=== PATIENT | female | born 2000 | race Caucasian/White ===

== ENCOUNTER 2021-04-26 17:38 | Inpatient (IN) ==
[2021-04-26] MEDS ORDERED: SODIUM CHLORIDE 0.9% 1000ML 1,000 ML IV SCH (19:30)
[2021-04-26 19:53] LABS: Basophils # (auto) 0.02 K/uL (0-0.2); Basophils % (auto) 0.2 %; Eosinophils % (auto) 1.1 %; Hematocrit (blood only) 42.3 % (37-47); Hemoglobin 14.8 g/dL (12.0-16.0); Immature Granulocytes # (auto) 0.02 K/uL (0.00-0.02); Immature Granulocytes % (auto) 0.2 %; Lymphocytes # (auto) 3.53 K/uL (1.2-3.4); Lymphocytes % (auto) 37.6 %; Mean Corpuscular Hemoglobin 28.8 pg (25-34); Mean Corpuscular Volume 82.3 fL (80-100); Mean Platelet Volume 13.2 fL (7.4-10.4); Monocytes # (auto) 0.55 K/uL (0.11-0.59); Monocytes % (auto) 5.9 %; Neutrophils # (auto) 5.16 K/uL (1.4-6.5); Platelet Count 187 K/uL (130-400); RDW Coefficient of Variation 12.8 % (11.5-14.5); RDW Standard Deviation 38.7 fL (36.4-46.3); Red Blood Count 5.14 M/uL (4.2-5.4); White Blood Count 9.38 K/uL (4.8-10.8)
[2021-04-26 20:27] LABS: Alanine Aminotransferase 39 U/L (12-78); Albumin Level 3.4 gm/dl (3.4-5.0); Blood Urea Nitrogen 9 mg/dl (7-18); C Reactive Protein 0.67 mg/dl (0-0.29); Calcium 9.3 mg/dl (8.5-10.1); Carbon Dioxide 24 mmol/L (21-32); Chloride 108 mmol/L (98-107); Creatinine Clr Calc Pharmacy 169.7 ml/min; Est GFR (African American) > 150.0 ml/min; Est GFR (Non-African American) 130.8 ml/min; Glucose 106 mg/dl (70-99); Lipase 137 U/L (73-393); Sodium 139 mmol/L (136-145)
[2021-04-26 20:35] LABS: Albumin Globulin Ratio 0.8 (0.9-2); Alkaline Phosphatase 74 U/L (45-117); Bilirubin,Total 0.4 mg/dl (0.2-1); Globulin 4.2 gm/dl (2.5-4.0); Thyroid Stimulating Hormone 0.871 uIu/ml (0.300-4.500); Total Protein 7.6 gm/dl (6.4-8.2); Troponin I < 0.015 ng/ml (0-0.045)
--- NOTE | 2021-04-26 20:42 | XRay Report ---
KUB CLINICAL HISTORY: Left flank pain. COMPARISON STUDY: CT of the abdomen pelvis May 08, 2020. FINDINGS: The bowel gas pattern is normal. Amount of stool is within normal limits. No urinary calcul i are identified. IMPRESSION: Unremarkable KUB. ACT 112: Negative or not required by law. Electronically signed by: Travis Hogan M.D. 04/26/2021 8:41 PM
[2021-04-26 21:13] LABS: Potassium 2.5 mmol/L (3.5-5.1)
[2021-04-26] MEDS ORDERED: POTASSIUM ACETATE/NSS 10 MEQ/105 ML BAG IV ONE (21:14)
[2021-04-26] MEDS ORDERED: POTASSIUM CHLORIDE CRTAB 20 MEQ TABCR PO STA (21:14)
[2021-04-26 21:16] LABS: D Dimer 480 ug/L FEU (0-500); Partial Thromboplastin Ratio 0.9; Partial Thromboplastin Time 23.9 Seconds (21.0-31.0); Prothrombin Time 10.1 Seconds (9.0-12.0)
[2021-04-26 21:22] LABS: Magnesium 1.6 mg/dl (1.8-2.4)
[2021-04-26] MEDS ORDERED: DEXTROSE 50% 50 ML SYRINGE IV STA (21:31)
[2021-04-26 22:05] LABS: Lyme Ab IgG w/WB Rflx Negative (Negative); Lyme Ab IgM w/WB Rflx Negative (Negative); Monotest Negative (Negative)
[2021-04-26 22:19] LABS: Pregnancy Test, Urine Negative (Negative)
[2021-04-26 22:48] LABS: Appearance Urine Cloudy (Clear); Bacteria Urine Automated 3+ (Negative); Bilirubin Urine Negative (Negative); Blood Urine 3+ (Negative); Color Urine Yellow; Glucose Urine UA 3+ (Negative); Ketones Urine Trace (Negative); Leukocyte Esterase Urine 1+ (Negative); Nitrite Urine Negative (Negative); Protein Urine 1+ (Negative); Urobilinogen Urine Negative (Negative); WBC Urine Automated >30 /hpf (0-5)
[2021-04-26 23:02] LABS: Amphetamines+Metham, Urine Neg (Neg); Barbiturates, Urine Neg (Neg); Benzodiazepine, Urine Neg (Neg); Cocaine, Urine Neg (Neg); MDMA (Ecstacy), Urine Neg (Neg); Methadone, Urine Neg (Neg); Opiate, Urine Neg (Neg); Phencyclidine, Urine Neg (Neg)
[2021-04-26 23:14] LABS: Cast Urine Automated 0 /lpf (0-5)
[2021-04-26] MEDS ORDERED: cefTRIAXone SODIUM 2,000 MG/70 ML BAG IV STA (23:21)
--- NOTE | 2021-04-26 23:52 | Emergency Department Note ---
History of Present Illness General Chief complaint: Flank Pain Stated complaint: JAUNDICE, PAIN UNDER RIBS Time Seen by Provider: 04/26/21 19:01 History of Present Illness Maximum Pain Intensity: 4 This is a 21-year-old female presenting to the emergency department for evaluation of left upper quadrant abdominal pain, pain with urination, and discoloration of her skin. She states that she has had the pain for the past 1 to 2 days. 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 She did have Covid 19 several months ago, but has not tested positive since. She does have a history of diabetes and uses lispro 8 units twice daily. She did use her insulin first thing this morning and had a small amount of food to eat around 11 AM. The patient went to work and began feeling worse and worse, and now states that the discoloration of her skin has i ncreased. She has had at least 2 tick bites recently. No fevers or chills. No chest pain, chest tightness, shortness of breath, or lower abdominal discomfort. She does not describe distinct flank pain, and does not have a history of abdominal surgery. The patient reports having loose stools for several months, which initially was felt to be related to Metformin. The patient does not report any recent travel history and rates her current discomfort a 4/10. She does not identify any aggravating or alleviating factors. Home Medications Medication Instructions Recorded Confirmed Type insulin lispro 100 unit/mL 8 unit SUBCUT BID 07/13/19 04/26/21 History subcutaneous pen (Humalog KwikPen (U-100) Insulin) levonorgestrel-ethinyl estradiol 1 tab PO QAM 07/13/19 04/26/21 History 0.1 mg-20 mcg tablet (Lutera (28)) fluticasone propionate 50 2 spray INTRANASAL DAILY 04/26/21 04/26/21 History mcg/actuation nasal spray,suspension metoclopramide HCl 10 mg tablet 10 mg PO QAM 04/26/21 04/26/21 History omeprazole 40 mg capsule,delayed 40 mg PO QAM 04/26/21 04/26/21 History release Allergies Allergy/AdvReac Type Severity Reaction Status Date / Time Lady Bugs Allergy Intermediate Swelling Uncoded 04/26/21 21:39 and hives Past Med/Surg History Medical History (Updated 04/27/21 @ 13:21 by Gela Carranza PA-C) Boils Diabetes Frequent loose stools Surgical History No significant past surgical history Social History Smoking Status: Never smoker Hx Alcohol Use: No Hx Substance Use: Yes (pt tested positive in ED but states "no") Preferred Language: Italian Communication Ability: Effective 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 Beliefs That Will Affect Care: None Current Living Situation: Parent Other Information That Helps Us Care for You: No Feels Safe at Home: Yes Safety Concerns: Feels Safe At This Time Assistive Devices: Glasses Review of Systems A total of 10 systems reviewed and were otherwise negative Physical Exam Vital Signs Vital Signs - 24 hr 04/26/21 18:13 04/26/21 20:00 04/26/21 21:17 Temperature Source Temporal Artery Scan Pulse Rate 78 100 H Pulse Rate [Finger] 96 H Pulse Rate from SpO2 Sensor Pulse Rhythm [Finger] Regular Respiratory Rate 18 18 20 Respiratory Effort / Characteristics Non-Labored Spontaneous Non-Labored Spontaneous Respiratory Depth Normal Normal Respiratory Pattern Regular Regular Blood Pressure 105/59 L 154/79 H Blood Pressure [Right Arm] 124/71 Blood Pressure Mean 74 104 Blood Pressure Mean [Right Arm] 88 Blood Pressure Position Sitting Blood Pressure Position [Right Arm] Lying Pulse Oximetry 97 98 97 Oxygen Delivery Method Room Air Room Air Sepsis Recent Fever Within 48 Hours No Sepsis New/Unexplained Change in Mental Status N/A Sepsis Action Taken by Nursing No Action Required 04/26/21 21:30 04/26/21 22:04 04/26/21 22:30 Temperature Source Pulse Rate 94 H 98 H 87 Pulse Rate [Finger] Pulse Rate from SpO2 Sensor 87 Pulse Rhythm [Finger] Respiratory Rate 20 20 Respiratory Effort / Characteristics Respiratory Depth Respiratory Pattern Blood Pressure 148/77 H 130/77 118/69 Blood Pressure [Right Arm] Blood Pressure Mean 100 94 85 Blood Pressure Mean [Right Arm] Blood Pressure Position Blood Pressure Position [Right Arm] Pulse Oximetry 97 97 99 Oxygen Delivery Method Sepsis Recent Fever Within 48 Hours Sepsis New/Unexplained Change in Mental Status Sepsis Action Taken by Nursing 04/26/21 23:00 04/26/21 23:30 04/27/21 00:00 Temperature Source Pulse Rate 75 79 71 Pulse Rate [Finger] Pulse Rate from SpO2 Sensor 76 81 71 Pulse Rhythm [Finger] Respiratory Rate 18 18 15 Respiratory Effort / Characteristics Respiratory Depth Respiratory Pattern Blood Pressure 122/68 118/70 90/47 L Blood Pressure [Right Arm] Blood Pressure Mean 86 86 61 Blood Pressure Mean [Right Arm] Blood Pressure Position Blood Pressure Position [Right Arm] Pulse Oximetry 99 98 97 Oxygen Delivery Method Sepsis Recent Fever Within 48 Hours Sepsis New/Unexplained Change in Mental Status Sepsis Action Taken by Nursing 04/27/21 00:30 04/27/21 01:00 04/27/21 01:30 Temperature Source Pulse Rate 75 72 74 Pulse Rate [Finger] Pulse Rate from SpO2 Sensor 75 71 74 Pulse Rhythm [Finger] Respiratory Rate 16 18 18 Respiratory Effort / Characteristics Respiratory Depth Respiratory Pattern Blood Pressure 112/62 119/80 105/71 Blood Pressure [Right Arm] Blood Pressure Mean 78 93 82 Blood Pressure Mean [Right Arm] Blood Pressure Position Blood Pressure Position [Right Arm] Pulse Oximetry 98 99 95 Oxygen Delivery Method Sepsis Recent Fever Within 48 Hours Sepsis New/Unexplained Change in Mental Status Sepsis Action Taken by Nursing 04/27/21 02:00 04/27/21 02:30 04/27/21 03:12 Temperature Source Pulse Rate 73 73 70 Pulse Rate [Finger] Pulse Rate from SpO2 Sensor Pulse Rhythm [Finger] Respiratory Rate 21 16 14 Respiratory Effort / Characteristics Respiratory Depth Respiratory Pattern Blood Pressure 95/64 L 109/64 Blood Pressure [Right Arm] Blood Pressure Mean 74 79 Blood Pressure Mean [Right Arm] Blood Pressure Position Blood Pressure Position [Right Arm] Pulse Oximetry Oxygen Delivery Method Sepsis Recent Fever Within 48 Hours Sepsis New/Unexplained Change in Mental Status Sepsis Action Taken by Nursing 04/27/21 03:30 04/27/21 04:00 Temperature Source Pulse Rate 73 73 Pulse Rate [Finger] Pulse Rate from SpO2 Sensor Pulse Rhythm [Finger] Respiratory Rate 15 15 Respiratory Effort / Characteristics Respiratory Depth Respiratory Pattern Blood Pressure Blood Pressure [Right Arm] Blood Pressure Mean Blood Pressure Mean [Right Arm] Blood Pressure Position Blood Pressure Position [Right Arm] Pulse Oximetry Oxygen Delivery Method Sepsis Recent Fever Within 48 Hours Sepsis New/Unexplained Change in Mental Status Sepsis Action Taken by Nursing VITALS: Vitals are noted on the nurse's note and reviewed by myself. Vital signs stable. GENERAL: Well-developed, well-nourished, white female, who is in no acute distress and resting comfortably. Patient is cooperative with the examination. HEAD: Normocephalic atraumatic. NECK: Supple without nuchal rigidity. No lymphadenopathy. No thyromegaly. Cervical spine is nontender. HEART: Regular rate and rhythm without murmurs gallops or rubs. LUNGS: Clear to auscultation bilaterally without wheezes, rales or rhonchi. No retractions or accessory muscle use. ABDOMEN: Positive normal bowel sounds x 4. Soft with mild left upper quadrant tenderness. No rebound or guarding. No significant epigastric or right upper quadrant tenderness. No CVA tenderness. MUSCULOSKELETAL: No muscle atrophy, erythema, or edema noted. Full range of motion in all extremities. NEURO: Patient was alert and oriented to person place and time. CN II through XII grossly intact. SKIN: Scattered patchy yellowish discoloration noted primarily on the left leg and left arm. Course Administered Medications Enoxaparin Sodium (Enoxaparin Inj 40 Mg/0.4 Ml Syr) 40 mg SQ Q24H MARIELLA Stop: 05/27/21 08:59 Last Admin: 04/27/21 08:37 Dose: 40 mg Documented by: [id number] Fluticasone Propionate (Fluticasone Propionate Na Spr 16 Gm Btl) 2 sprays NA DAILY MARIELLA Stop: 05/27/21 08:59 Last Admin: 04/27/21 08:37 Dose: 2 sprays Documented by: [id number] Potassium Chloride/Sodium Chloride (Normal Saline W/20 Meq Kcl) 20 meq in 1,000 mls @ 100 mls/hr IV .Q10H MARIELLA Stop: 05/27/21 08:59 Last Admin: 04/27/21 09:56 Dose: 100 mls/hr Documented by: [id number] Insulin Human Regular (Insulin Human Regular) 0 units SC ACHS MARIELLA; Protocol Stop: 05/27/21 07:29 Last Admin: 04/27/21 13:00 Dose: 7 units Documented by: [id number] Cosigned by: [id number] Admin: 04/27/21 08:45 Dose: 5 units Documented by: [id number] Cosigned by: [id number] Metoclopramide HCl (Metoclopramide Hcl 10 Mg Tablet) 10 mg PO QAM MARIELLA Stop: 05/27/21 08:59 Last Admin: 04/27/21 08:37 Dose: 10 mg Documented by: [id number] Miscellaneous (Lutera (28): Order Awaiting Action) 1 ea N/A DAILY MARIELLA Stop: 05/27/21 08:59 Last Admin: 04/27/21 08:40 Dose: Not Given Documented by: [id number] Polyethylene Glycol (Polyethylene (Miralax) 17 Gm Pack) 17 gm PO BID MARIELLA Stop: 05/27/21 08:59 Last Admin: 04/27/21 08:40 Dose: Not Given Documented by: [id number] Discontinued Medications Dextrose (Dextrose 50% 50 Ml Syringe) 50 ml IV NOW STA Stop: 04/26/21 21:32 Last Admin: 04/26/21 21:37 Dose: 50 ml Documented by: [id number] Sodium Chloride (Nss 1000ml) 1,000 mls @ 999 mls/hr IV .Q1H1M MARIELLA Stop: 04/26/21 20:30 Last Infusion: 04/26/21 20:58 Dose: 0 mls/hr Documented by: [id number] Admin: 04/26/21 19:49 Dose: 999 mls/hr Documented by: [id number] Potassium Acetate (Potassium Acetate/Nss) 10 meq in 105 mls @ 105 mls/hr IV Q1H ONE Stop: 04/26/21 22:13 Last Infusion: 04/26/21 23:10 Dose: 0 mls/hr Documented by: [id number] Admin: 04/26/21 22:10 Dose: 105 mls/hr Documented by: [id number] Ceftriaxone Sodium (Rocephin) 2,000 mg in 70 mls @ 140 mls/hr IV NOW STA Stop: 04/26/21 23:50 Last Infusion: 04/27/21 00:56 Dose: 0 mls/hr Documented by: [id number] Admin: 04/27/21 00:20 Dose: 140 mls/hr Documented by: [id number] Magnesium Sulfate/Dextrose (Magnesium Sulfate / D5w) 1 gm in 100 mls @ 50 mls/hr IV Q2H MARIELLA Stop: 04/27/21 12:59 Last Admin: 04/27/21 12:46 Dose: 50 mls/hr Documented by: [id number] Infusion: 04/27/21 11:57 Dose: 50 mls/hr Documented by: [id number] Admin: 04/27/21 09:57 Dose: 50 mls/hr Documented by: [id number] Pantoprazole Sodium (Pantoprazole 40 Mg Tab) 40 mg PO QAM [facility] Stop: 05/27/21 08:59 Last Admin: 04/27/21 08:37 Dose: 40 mg Documented by: [id number] Potassium Chloride (Potassium Chloride Crtab 20 Meq Tabcr) 20 meq PO NOW STA Stop: 04/26/21 21:15 Last Admin: 04/26/21 21:37 Dose: 20 meq Documented by: [id number] Potassium Chloride (Potassium Chloride Crtab 20 Meq Tabcr) 20 meq PO Q2H MARIELLA Stop: 04/27/21 08:01 Last Admin: 04/27/21 07:41 Dose: 20 meq Documented by: [id number] Admin: 04/27/21 06:45 Dose: 20 meq Documented by: [id number] Medical Decision Making Differential Diagnosis Differential diagnosis: Etiologies such as biliary colic, cholecystitis, hepatitis, pancreatitis, cardiac disease, pancreatitis, gastritis, peptic ulcer disease, appendicitis, cystitis, diverticulitis, mesenteric ischemia, inflammatory bowel disease, ileus, bowel obstruction, testicular/adnexal torsion, aortic pathology, shingles, as well as others were considered Laboratory Data Result diagrams: 04/27/21 08:32 04/27/21 08:32 Lab Results 04/26/21 04/26/21 04/26/21 Range/Units 19:40 19:40 19:40 WBC 9.38 (4.8-10.8) K/uL RBC 5.14 (4.2-5.4) M/uL Hgb 14.8 (12.0-16.0) g/dL Hct 42.3 (37-47) % MCV 82.3 (80-100) fL MCH 28.8 (25-34) pg MCHC 35.0 (32-36) g/dL RDW Std Deviation 38.7 (36.4-46.3) fL RDW Coeff of Mil 12.8 (11.5-14.5) % Plt Count 187 (130-400) K/uL MPV 13.2 H (7.4-10.4) fL Immature Gran % (Auto) 0.2 % Neut % (Auto) 55.0 % Lymph % (Auto) 37.6 % [place] % (Auto) 5.9 % Eos % (Auto) 1.1 % Baso % (Auto) 0.2 % Neut # (Auto) 5.16 (1.4-6.5) K/uL Lymph # (Auto) 3.53 H (1.2-3.4) K/uL [place] # (Auto) 0.55 (0.11-0.59) K/uL Eos # (Auto) 0.10 (0-0.5) K/uL Baso # (Auto) 0.02 (0-0.2) K/uL Immature Gran # (Auto) 0.02 (0.00-0.02) K/uL ESR 18 (0-20) mm/hr PT 10.1 (9.0-12.0) Seconds INR 1.0 (0.9-1.1) APTT 23.9 (21.0-31.0) Seconds PTT Ratio 0.9 D-Dimer 480 (0-500) ug/L FEU Sodium (136-145) mmol/L Potassium (3.5-5.1) mmol/L Chloride (98-107) mmol/L Carbon Dioxide (21-32) mmol/L Anion Gap (3-11) BUN (7-18) mg/dl Creatinine (0.6-1.2) mg/dl Est Cr Clr Drug Dosing ml/min Est GFR ( Amer) ml/min Est GFR (Non-Af Amer) ml/min BUN/Creatinine Ratio (10-20) Glucose (70-99) mg/dl POC Glucose (70-99) mg/dl Calcium (8.5-10.1) mg/dl Magnesium (1.8-2.4) mg/dl Total Bilirubin (0.2-1) mg/dl AST (15-37) U/L ALT (12-78) U/L Alkaline Phosphatase (45-117) U/L Troponin I (0-0.045) ng/ml C-Reactive Protein (0-0.29) mg/dl Total Protein (6.4-8.2) gm/dl Albumin (3.4-5.0) gm/dl Globulin (2.5-4.0) gm/dl Albumin/Globulin Ratio (0.9-2) Lipase (73-393) U/L TSH (0.300-4.500) uIu/ml Urine Color Urine Appearance (Clear) Urine pH (4.5-7.5) Ur Specific [place] (1.000-1.030) Urine Protein (Negative) Urine Glucose (UA) (Negative) Urine Ketones (Negative) Urine Blood (Negative) Urine Nitrite (Negative) Urine Bilirubin (Negative) Urine Urobilinogen (Negative) Ur Leukocyte Esterase (Negative) Urine WBC (Auto) (0-5) /hpf Urine RBC (Auto) (0-4) /hpf U Hyaline Cast (Auto) (0-5) /lpf U Epithel Cells (Auto) (0-5) /lpf Urine Bacteria (Auto) (Negative) Urine Yeast (None Prsent) Urine Test (Negative) POC Ur Test (NEG) Urine Opiates Screen (Neg) Ur Methadone, Qual (Neg) Urine Barbiturates (Neg) Ur Phencyclidine (PCP) (Neg) U Amphetamin/Meth Scrn (Neg) MDMA (Ecstasy) Screen (Neg) U Benzodiazepines Scrn (Neg) Ur Cocaine Metabolite (Neg) U Marijuana (THC) Screen (Neg) Anaplasma Smear See Comment Lyme Disease IgG Ab Lyme Disease IgM Ab COVID-19 Eval Order SARS-CoV-2 (PCR) (Negative) Monoscreen 04/26/21 04/26/21 04/26/21 Range/Units 19:40 19:40 20:50 WBC (4.8-10.8) K/uL RBC (4.2-5.4) M/uL Hgb (12.0-16.0) g/dL Hct (37-47) % MCV (80-100) fL MCH (25-34) pg MCHC (32-36) g/dL RDW Std Deviation (36.4-46.3) fL RDW Coeff of Mil (11.5-14.5) % Plt Count (130-400) K/uL MPV (7.4-10.4) fL Immature Gran % (Auto) % Neut % (Auto) % Lymph % (Auto) % [place] % (Auto) % Eos % (Auto) % Baso % (Auto) % Neut # (Auto) (1.4-6.5) K/uL Lymph # (Auto) (1.2-3.4) K/uL [place] # (Auto) (0.11-0.59) K/uL Eos # (Auto) (0-0.5) K/uL Baso # (Auto) (0-0.2) K/uL Immature Gran # (Auto) (0.00-0.02) K/uL ESR (0-20) mm/hr PT (9.0-12.0) Seconds INR (0.9-1.1) APTT (21.0-31.0) Seconds PTT Ratio D-Dimer (0-500) ug/L FEU Sodium 139 (136-145) mmol/L Potassium 2.5 L* (3.5-5.1) mmol/L Chloride 108 H (98-107) mmol/L Carbon Dioxide 24 (21-32) mmol/L Anion Gap 6.0 (3-11) BUN 9 (7-18) mg/dl Creatinine 0.58 L (0.6-1.2) mg/dl Est Cr Clr Drug Dosing 169.7 ml/min Est GFR ( Amer) > 150.0 ml/min Est GFR (Non-Af Amer) 130.8 ml/min BUN/Creatinine Ratio 15.0 (10-20) Glucose 106 H (70-99) mg/dl POC Glucose (70-99) mg/dl Calcium 9.3 (8.5-10.1) mg/dl Magnesium 1.6 L (1.8-2.4) mg/dl Total Bilirubin 0.4 (0.2-1) mg/dl AST 16 (15-37) U/L ALT 39 (12-78) U/L Alkaline Phosphatase 74 (45-117) U/L Troponin I < 0.015 (0-0.045) ng/ml C-Reactive Protein 0.67 H (0-0.29) mg/dl Total Protein 7.6 (6.4-8.2) gm/dl Albumin 3.4 (3.4-5.0) gm/dl Globulin 4.2 H (2.5-4.0) gm/dl Albumin/Globulin Ratio 0.8 L (0.9-2) Lipase 137 (73-393) U/L TSH 0.871 (0.300-4.500) uIu/ml Urine Color Urine Appearance (Clear) Urine pH (4.5-7.5) Ur Specific [place] (1.000-1.030) Urine Protein (Negative) Urine Glucose (UA) (Negative) Urine Ketones (Negative) Urine Blood (Negative) Urine Nitrite (Negative) Urine Bilirubin (Negative) Urine Urobilinogen (Negative) Ur Leukocyte Esterase (Negative) Urine WBC (Auto) (0-5) /hpf Urine RBC (Auto) (0-4) /hpf U Hyaline Cast (Auto) (0-5) /lpf U Epithel Cells (Auto) (0-5) /lpf Urine Bacteria (Auto) (Negative) Urine Yeast (None Prsent) Urine Test (Negative) POC Ur Test (NEG) Urine Opiates Screen (Neg) Ur Methadone, Qual (Neg) Urine Barbiturates (Neg) Ur Phencyclidine (PCP) (Neg) U Amphetamin/Meth Scrn (Neg) MDMA (Ecstasy) Screen (Neg) U Benzodiazepines Scrn (Neg) Ur Cocaine Metabolite (Neg) U Marijuana (THC) Screen (Neg) Anaplasma Smear Lyme Disease IgG Ab Cancelled Lyme Disease IgM Ab Cancelled COVID-19 Eval Order SARS-CoV-2 (PCR) (Negative) Monoscreen Cancelled 04/26/21 04/26/21 04/26/21 Range/Units 20:50 21:19 21:28 WBC (4.8-10.8) K/uL RBC (4.2-5.4) M/uL Hgb (12.0-16.0) g/dL Hct (37-47) % MCV (80-100) fL MCH (25-34) pg MCHC (32-36) g/dL RDW Std Deviation (36.4-46.3) fL RDW Coeff of Mil (11.5-14.5) % Plt Count (130-400) K/uL MPV (7.4-10.4) fL Immature Gran % (Auto) % Neut % (Auto) % Lymph % (Auto) % [place] % (Auto) % Eos % (Auto) % Baso % (Auto) % Neut # (Auto) (1.4-6.5) K/uL Lymph # (Auto) (1.2-3.4) K/uL [place] # (Auto) (0.11-0.59) K/uL Eos # (Auto) (0-0.5) K/uL Baso # (Auto) (0-0.2) K/uL Immature Gran # (Auto) (0.00-0.02) K/uL ESR (0-20) mm/hr PT (9.0-12.0) Seconds INR (0.9-1.1) APTT (21.0-31.0) Seconds PTT Ratio D-Dimer (0-500) ug/L FEU Sodium (136-145) mmol/L Potassium (3.5-5.1) mmol/L Chloride (98-107) mmol/L Carbon Dioxide (21-32) mmol/L Anion Gap (3-11) BUN (7-18) mg/dl Creatinine (0.6-1.2) mg/dl Est Cr Clr Drug Dosing ml/min Est GFR ( Amer) ml/min Est GFR (Non-Af Amer) ml/min BUN/Creatinine Ratio (10-20) Glucose (70-99) mg/dl POC Glucose 27 L* 26 L* (70-99) mg/dl Calcium (8.5-10.1) mg/dl Magnesium (1.8-2.4) mg/dl Total Bilirubin (0.2-1) mg/dl AST (15-37) U/L ALT (12-78) U/L Alkaline Phosphatase (45-117) U/L Troponin I (0-0.045) ng/ml C-Reactive Protein (0-0.29) mg/dl Total Protein (6.4-8.2) gm/dl Albumin (3.4-5.0) gm/dl Globulin (2.5-4.0) gm/dl Albumin/Globulin Ratio (0.9-2) Lipase (73-393) U/L TSH (0.300-4.500) uIu/ml Urine Color Urine Appearance (Clear) Urine pH (4.5-7.5) Ur Specific [place] (1.000-1.030) Urine Protein (Negative) Urine Glucose (UA) (Negative) Urine Ketones (Negative) Urine Blood (Negative) Urine Nitrite (Negative) Urine Bilirubin (Negative) Urine Urobilinogen (Negative) Ur Leukocyte Esterase (Negative) Urine WBC (Auto) (0-5) /hpf Urine RBC (Auto) (0-4) /hpf U Hyaline Cast (Auto) (0-5) /lpf U Epithel Cells (Auto) (0-5) /lpf Urine Bacteria (Auto) (Negative) Urine Yeast (None Prsent) Urine Test (Negative) POC Ur Test (NEG) Urine Opiates Screen (Neg) Ur Methadone, Qual (Neg) Urine Barbiturates (Neg) Ur Phencyclidine (PCP) (Neg) U Amphetamin/Meth Scrn (Neg) MDMA (Ecstasy) Screen (Neg) U Benzodiazepines Scrn (Neg) Ur Cocaine Metabolite (Neg) U Marijuana (THC) Screen (Neg) Anaplasma Smear Lyme Disease IgG Ab Negative Lyme Disease IgM Ab Negative COVID-19 Eval Order SARS-CoV-2 (PCR) (Negative) Monoscreen Negative 04/26/21 04/26/21 04/26/21 Range/Units 21:41 22:00 22:00 WBC (4.8-10.8) K/uL RBC (4.2-5.4) M/uL Hgb (12.0-16.0) g/dL Hct (37-47) % MCV (80-100) fL MCH (25-34) pg MCHC (32-36) g/dL RDW Std Deviation (36.4-46.3) fL RDW Coeff of Mil (11.5-14.5) % Plt Count (130-400) K/uL MPV (7.4-10.4) fL Immature Gran % (Auto) % Neut % (Auto) % Lymph % (Auto) % [place] % (Auto) % Eos % (Auto) % Baso % (Auto) % Neut # (Auto) (1.4-6.5) K/uL Lymph # (Auto) (1.2-3.4) K/uL [place] # (Auto) (0.11-0.59) K/uL Eos # (Auto) (0-0.5) K/uL Baso # (Auto) (0-0.2) K/uL Immature Gran # (Auto) (0.00-0.02) K/uL ESR (0-20) mm/hr PT (9.0-12.0) Seconds INR (0.9-1.1) APTT (21.0-31.0) Seconds PTT Ratio D-Dimer (0-500) ug/L FEU Sodium (136-145) mmol/L Potassium (3.5-5.1) mmol/L Chloride (98-107) mmol/L Carbon Dioxide (21-32) mmol/L Anion Gap (3-11) BUN (7-18) mg/dl Creatinine (0.6-1.2) mg/dl Est Cr Clr Drug Dosing ml/min Est GFR ( Amer) ml/min Est GFR (Non-Af Amer) ml/min BUN/Creatinine Ratio (10-20) Glucose (70-99) mg/dl POC Glucose 132 H (70-99) mg/dl Calcium (8.5-10.1) mg/dl Magnesium (1.8-2.4) mg/dl Total Bilirubin (0.2-1) mg/dl AST (15-37) U/L ALT (12-78) U/L Alkaline Phosphatase (45-117) U/L Troponin I (0-0.045) ng/ml C-Reactive Protein (0-0.29) mg/dl Total Protein (6.4-8.2) gm/dl Albumin (3.4-5.0) gm/dl Globulin (2.5-4.0) gm/dl Albumin/Globulin Ratio (0.9-2) Lipase (73-393) U/L TSH (0.300-4.500) uIu/ml Urine Color Yellow Urine Appearance Cloudy A (Clear) Urine pH 5.0 (4.5-7.5) Ur Specific [place] 1.030 (1.000-1.030) Urine Protein 1+ H (Negative) Urine Glucose (UA) 3+ H (Negative) Urine Ketones Trace H (Negative) Urine Blood 3+ H (Negative) Urine Nitrite Negative (Negative) Urine Bilirubin Negative (Negative) Urine Urobilinogen Negative (Negative) Ur Leukocyte Esterase 1+ H (Negative) Urine WBC (Auto) >30 H (0-5) /hpf Urine RBC (Auto) 10-30 H (0-4) /hpf U Hyaline Cast (Auto) 0 (0-5) /lpf U Epithel Cells (Auto) 10-20 H (0-5) /lpf Urine Bacteria (Auto) 3+ H (Negative) Urine Yeast Budding A (None Prsent) Urine Test Negative (Negative) POC Ur Test (NEG) Urine Opiates Screen (Neg) Ur Methadone, Qual (Neg) Urine Barbiturates (Neg) Ur Phencyclidine (PCP) (Neg) U Amphetamin/Meth Scrn (Neg) MDMA (Ecstasy) Screen (Neg) U Benzodiazepines Scrn (Neg) Ur Cocaine Metabolite (Neg) U Marijuana (THC) Screen (Neg) Anaplasma Smear Lyme Disease IgG Ab Lyme Disease IgM Ab COVID-19 Eval Order SARS-CoV-2 (PCR) (Negative) Monoscreen 04/26/21 04/26/21 04/26/21 Range/Units 22:06 22:20 22:20 WBC (4.8-10.8) K/uL RBC (4.2-5.4) M/uL Hgb (12.0-16.0) g/dL Hct (37-47) % MCV (80-100) fL MCH (25-34) pg MCHC (32-36) g/dL RDW Std Deviation (36.4-46.3) fL RDW Coeff of Mil (11.5-14.5) % Plt Count (130-400) K/uL MPV (7.4-10.4) fL Immature Gran % (Auto) % Neut % (Auto) % Lymph % (Auto) % [place] % (Auto) % Eos % (Auto) % Baso % (Auto) % Neut # (Auto) (1.4-6.5) K/uL Lymph # (Auto) (1.2-3.4) K/uL [place] # (Auto) (0.11-0.59) K/uL Eos # (Auto) (0-0.5) K/uL Baso # (Auto) (0-0.2) K/uL Immature Gran # (Auto) (0.00-0.02) K/uL ESR (0-20) mm/hr PT (9.0-12.0) Seconds INR (0.9-1.1) APTT (21.0-31.0) Seconds PTT Ratio D-Dimer (0-500) ug/L FEU Sodium (136-145) mmol/L Potassium (3.5-5.1) mmol/L Chloride (98-107) mmol/L Carbon Dioxide (21-32) mmol/L Anion Gap (3-11) BUN (7-18) mg/dl Creatinine (0.6-1.2) mg/dl Est Cr Clr Drug Dosing ml/min Est GFR ( Amer) ml/min Est GFR (Non-Af Amer) ml/min BUN/Creatinine Ratio (10-20) Glucose (70-99) mg/dl POC Glucose 102 H (70-99) mg/dl Calcium (8.5-10.1) mg/dl Magnesium (1.8-2.4) mg/dl Total Bilirubin (0.2-1) mg/dl AST (15-37) U/L ALT (12-78) U/L Alkaline Phosphatase (45-117) U/L Troponin I (0-0.045) ng/ml C-Reactive Protein (0-0.29) mg/dl Total Protein (6.4-8.2) gm/dl Albumin (3.4-5.0) gm/dl Globulin (2.5-4.0) gm/dl Albumin/Globulin Ratio (0.9-2) Lipase (73-393) U/L TSH (0.300-4.500) uIu/ml Urine Color Urine Appearance (Clear) Urine pH (4.5-7.5) Ur Specific [place] (1.000-1.030) Urine Protein (Negative) Urine Glucose (UA) (Negative) Urine Ketones (Negative) Urine Blood (Negative) Urine Nitrite (Negative) Urine Bilirubin (Negative) Urine Urobilinogen (Negative) Ur Leukocyte Esterase (Negative) Urine WBC (Auto) (0-5) /hpf Urine RBC (Auto) (0-4) /hpf U Hyaline Cast (Auto) (0-5) /lpf U Epithel Cells (Auto) (0-5) /lpf Urine Bacteria (Auto) (Negative) Urine Yeast (None Prsent) Urine Test (Negative) POC Ur Test NEG (NEG) Urine Opiates Screen Neg (Neg) Ur Methadone, Qual Neg (Neg) Urine Barbiturates Neg (Neg) Ur Phencyclidine (PCP) Neg (Neg) U Amphetamin/Meth Scrn Neg (Neg) MDMA (Ecstasy) Screen Neg (Neg) U Benzodiazepines Scrn Neg (Neg) Ur Cocaine Metabolite Neg (Neg) U Marijuana (THC) Screen Pos H (Neg) Anaplasma Smear Lyme Disease IgG Ab Lyme Disease IgM Ab COVID-19 Eval Order SARS-CoV-2 (PCR) (Negative) Monoscreen 04/26/21 04/26/21 04/26/21 Range/Units 23:01 23:30 23:30 WBC (4.8-10.8) K/uL RBC (4.2-5.4) M/uL Hgb (12.0-16.0) g/dL Hct (37-47) % MCV (80-100) fL MCH (25-34) pg MCHC (32-36) g/dL RDW Std Deviation (36.4-46.3) fL RDW Coeff of Mil (11.5-14.5) % Plt Count (130-400) K/uL MPV (7.4-10.4) fL Immature Gran % (Auto) % Neut % (Auto) % Lymph % (Auto) % [place] % (Auto) % Eos % (Auto) % Baso % (Auto) % Neut # (Auto) (1.4-6.5) K/uL Lymph # (Auto) (1.2-3.4) K/uL [place] # (Auto) (0.11-0.59) K/uL Eos # (Auto) (0-0.5) K/uL Baso # (Auto) (0-0.2) K/uL Immature Gran # (Auto) (0.00-0.02) K/uL ESR (0-20) mm/hr PT (9.0-12.0) Seconds INR (0.9-1.1) APTT (21.0-31.0) Seconds PTT Ratio D-Dimer (0-500) ug/L FEU Sodium (136-145) mmol/L Potassium (3.5-5.1) mmol/L Chloride (98-107) mmol/L Carbon Dioxide (21-32) mmol/L Anion Gap (3-11) BUN (7-18) mg/dl Creatinine (0.6-1.2) mg/dl Est Cr Clr Drug Dosing ml/min Est GFR ( Amer) ml/min Est GFR (Non-Af Amer) ml/min BUN/Creatinine Ratio (10-20) Glucose (70-99) mg/dl POC Glucose 144 H (70-99) mg/dl Calcium (8.5-10.1) mg/dl Magnesium (1.8-2.4) mg/dl Total Bilirubin (0.2-1) mg/dl AST (15-37) U/L ALT (12-78) U/L Alkaline Phosphatase (45-117) U/L Troponin I (0-0.045) ng/ml C-Reactive Protein (0-0.29) mg/dl Total Protein (6.4-8.2) gm/dl Albumin (3.4-5.0) gm/dl Globulin (2.5-4.0) gm/dl Albumin/Globulin Ratio (0.9-2) Lipase (73-393) U/L TSH (0.300-4.500) uIu/ml Urine Color Urine Appearance (Clear) Urine pH (4.5-7.5) Ur Specific [place] (1.000-1.030) Urine Protein (Negative) Urine Glucose (UA) (Negative) Urine Ketones (Negative) Urine Blood (Negative) Urine Nitrite (Negative) Urine Bilirubin (Negative) Urine Urobilinogen (Negative) Ur Leukocyte Esterase (Negative) Urine WBC (Auto) (0-5) /hpf Urine RBC (Auto) (0-4) /hpf U Hyaline Cast (Auto) (0-5) /lpf U Epithel Cells (Auto) (0-5) /lpf Urine Bacteria (Auto) (Negative) Urine Yeast (None Prsent) Urine Test (Negative) POC Ur Test (NEG) Urine Opiates Screen (Neg) Ur Methadone, Qual (Neg) Urine Barbiturates (Neg) Ur Phencyclidine (PCP) (Neg) U Amphetamin/Meth Scrn (Neg) MDMA (Ecstasy) Screen (Neg) U Benzodiazepines Scrn (Neg) Ur Cocaine Metabolite (Neg) U Marijuana (THC) Screen (Neg) Anaplasma Smear Lyme Disease IgG Ab Lyme Disease IgM Ab COVID-19 Eval Order Covid19 at [facility] SARS-CoV-2 (PCR) NEGATIVE (Negative) Monoscreen 04/27/21 Range/Units 01:42 WBC (4.8-10.8) K/uL RBC (4.2-5.4) M/uL Hgb (12.0-16.0) g/dL Hct (37-47) % MCV (80-100) fL MCH (25-34) pg MCHC (32-36) g/dL RDW Std Deviation (36.4-46.3) fL RDW Coeff of Mil (11.5-14.5) % Plt Count (130-400) K/uL MPV (7.4-10.4) fL Immature Gran % (Auto) % Neut % (Auto) % Lymph % (Auto) % [place] % (Auto) % Eos % (Auto) % Baso % (Auto) % Neut # (Auto) (1.4-6.5) K/uL Lymph # (Auto) (1.2-3.4) K/uL [place] # (Auto) (0.11-0.59) K/uL Eos # (Auto) (0-0.5) K/uL Baso # (Auto) (0-0.2) K/uL Immature Gran # (Auto) (0.00-0.02) K/uL ESR (0-20) mm/hr PT (9.0-12.0) Seconds INR (0.9-1.1) APTT (21.0-31.0) Seconds PTT Ratio D-Dimer (0-500) ug/L FEU Sodium (136-145) mmol/L Potassium (3.5-5.1) mmol/L Chloride (98-107) mmol/L Carbon Dioxide (21-32) mmol/L Anion Gap (3-11) BUN (7-18) mg/dl Creatinine (0.6-1.2) mg/dl Est Cr Clr Drug Dosing ml/min Est GFR ( Amer) ml/min Est GFR (Non-Af Amer) ml/min BUN/Creatinine Ratio (10-20) Glucose (70-99) mg/dl POC Glucose 118 H (70-99) mg/dl Calcium (8.5-10.1) mg/dl Magnesium (1.8-2.4) mg/dl Total Bilirubin (0.2-1) mg/dl AST (15-37) U/L ALT (12-78) U/L Alkaline Phosphatase (45-117) U/L Troponin I (0-0.045) ng/ml C-Reactive Protein (0-0.29) mg/dl Total Protein (6.4-8.2) gm/dl Albumin (3.4-5.0) gm/dl Globulin (2.5-4.0) gm/dl Albumin/Globulin Ratio (0.9-2) Lipase (73-393) U/L TSH (0.300-4.500) uIu/ml Urine Color Urine Appearance (Clear) Urine pH (4.5-7.5) Ur Specific [place] (1.000-1.030) Urine Protein (Negative) Urine Glucose (UA) (Negative) Urine Ketones (Negative) Urine Blood (Negative) Urine Nitrite (Negative) Urine Bilirubin (Negative) Urine Urobilinogen (Negative) Ur Leukocyte Esterase (Negative) Urine WBC (Auto) (0-5) /hpf Urine RBC (Auto) (0-4) /hpf U Hyaline Cast (Auto) (0-5) /lpf U Epithel Cells (Auto) (0-5) /lpf Urine Bacteria (Auto) (Negative) Urine Yeast (None Prsent) Urine Test (Negative) POC Ur Test (NEG) Urine Opiates Screen (Neg) Ur Methadone, Qual (Neg) Urine Barbiturates (Neg) Ur Phencyclidine (PCP) (Neg) U Amphetamin/Meth Scrn (Neg) MDMA (Ecstasy) Screen (Neg) U Benzodiazepines Scrn (Neg) Ur Cocaine Metabolite (Neg) U Marijuana (THC) Screen (Neg) Anaplasma Smear Lyme Disease IgG Ab Lyme Disease IgM Ab COVID-19 Eval Order SARS-CoV-2 (PCR) (Negative) Monoscreen Imaging Data Radiologist's Impression: Abdomen/Pelvis CT 04/27/21 01:[address] WITHOUT CONTRAST CT DOSE: 417.39 mGy.cm HISTORY: Left flank pain. Pyelonephritis. TECHNIQUE: Multiaxial CT images of the abdomen and pelvis were performed without contrast. A dose lowering technique was utilized adhering to the principles of ALARA. COMPARISON STUDY: Abdomen and pelvis CT 05/08/2020. FINDINGS: Stable 6 cm subpleural nodular density within the left lower lobe on image 3. This is likely benign given the patient's age. No pneumoperitoneum. No pneumatosis. No fractures within the visualized osseous structures. The unenhanced liver, gallbladder, pancreas, spleen, adrenal glands, and kidneys are unremarkable. No renal stones or hydronephrosis. There is mild bladder wall thickening. The uterus and bilateral adnexa are unremarkable. No pelvic free fluid. Fluid-filled nondilated large and small bowel. Normal appendix. No bowel wall thickening or obstruction. However, there is suboptimal evaluation for bowel pathology due to the lack of intravenous and oral contrast. IMPRESSION: 1. Mild bladder wall thickening. This may represent a cystitis. Recommend correlation with urinalysis. 2. No renal or ureteral stones. No hydronephrosis. 3. Fluid-filled large and small bowel suggesting a gastroenteritis/diarrheal illness. 4. Normal appendix. ACT 112: Negative or not required by law. Electronically signed by: Edison Marmolejo M.D. 04/27/2021 7:49 AM ECG Data Attestation: I personally reviewed and interpreted this ECG as follows: Additional Comments: Sinus tachycardia @[address] elevation T wave abnormality, consider inferior ischemia No previous ECGs available MDM Narrative Physical exam and history were performed. Nursing notes, EMR, and Medication List were personally reviewed. Patient appears to have dysuria and left upper quadrant abdominal discomfort bringing her to the emergency department. She does not appear toxic on examination. IV access was established and labs were obtained. The patient was gently hydrated with normal saline. An order was placed for continuous cardiac monitoring. The monitor shows a rate of 78 with normal sinus rhythm. The patient's blood work is as above and was reviewed. She does not have a significantly elevated white blood cell count, gross anemia, or bandemia. Lipase and transaminases are not diagnostic. Troponin and D-dimer x1 are both negative. TSH shows euthyroid state. She is not . Urine is with bacteria, esterase, and blood. I do suspect this is from a urinary tract infection. The patient does have a slightly low magnesium at 1.6. Her potassium is notably low at 2.5, and this was repleted both through her IV and orally. Initial glucose was 106. I was contacted by the nurse shortly after labs came back. The patient was diaphoretic and not acting appropriate. Bedside glucose was performed and was 27. We did immediately give the patient juice and something to eat, and repeat glucose 90 minutes later decreased to 26. After this she was given D50, and her sugar did increase to 132 and the patient felt much better. After providing the patient oral potassium, food, and juice, she ultimately defecated herself in the bed. According to the patient's mother the patient has had episodes like this for several months. The case was discussed with my attending physician. Overall we have concern for the patient's wellbeing. She is on lispro, but still managed to drop her glucose less than 30. She appears to have a UTI and was given IV Rocephin. The patient does not seem well for discharge home. The case was discussed with the on-call hospitalist team, who agreed to evaluate the patient here in the ER. Please see their dictation for further patient course, plan, and disposition. The chart was completed utilizing [employer] Speech Voice Recognition Software. Grammatical errors, random word insertions, pronoun errors, and incomplete sentences are an occasional consequence of this system due to software limitations, ambient noise, and hardware issues. Any formal questions or concerns about the content, text, or information contained within the body of this dictation should be directly addressed to the provider for clarification. . Impression & Plan UTI (urinary tract infection), Hypokalemia, Hypoglycemia Discharge Plan Visit Data Chief Complaint: Flank Pain Stated Complaint: JAUNDICE, PAIN UNDER RIBS ED Provider: Harpreet Chiang ED Midlevel Provider: Jah Kunz Discharge Problem: UTI (urinary tract infection), Hypokalemia, Hypoglycemia Patient Disposition: Admitted As Inpatient Discharge Instructions Interventions: ED Discharge Assessment Last Done: 04/27/21 05:30
--- NOTE | 2021-04-27 01:40 | History & Physical Report ---
Date of Service April 27, 2021 Assessment & Plan (1) UTI (urinary tract infection): Plan: Patient is a 21-year-old female with a past medical history of seasonal allergies, diabetes, and gastroparesis who presents for evaluation of flank pain and increased urinary frequency. #Urinary tract infection Patient's clinical history, laboratory findings and physical exam findings are consistent with a urinary tract infection. She has been started on ceftriaxone urine cultures have been sent narrow antibiotics pending speciation and sensitivities. Given her history of left-sided abdominal bruising and CVA tenderness obtain CT abdomen pelvis demonstrating -Ceftriaxone narrow spending speciation and sensitivities -LR at 125x2 bags -Azo -follow ctap #Hypokalemia Patient presenting with potassium of 2.5. Repleted 20 MEQ's in the ED. ordered additional 40 MEQ's for a total of 60 M EQ's overnight. -Trend daily BMP replete electrolytes as indicated #Diabetes With a history of diabetes, last A1c unknown, will continue outpatient regimen -Blood sugars ACHS -Home regimen lispro 8 units twice daily #Seasonal allergies Continue fluticasone #Gastroparesis Continue omeprazole and metoclopramide FENa: DM2 Code Status: Full code DVT PPX: Lovenox PT/OT: Not indicated Case Management: Consulted Dispo: Binhcaleb Lima MD PGY 3, FCM This chart was completed utilizing [employer] voice recognition software. Grammatical errors, random word insertions, pronoun errors, and in complete sentences are an occasional consequence of the system. Any questions or concerns about the content, text, or information contained within the body of this dictation should be addressed directly to the physician for clarification. (2) Hypokalemia: (3) Diabetes: History of Present Illness Chief Complaint: Patient is a 21-year-old female with a past medical history of seasonal allergies, diabetes, and gastroparesis who presents for evaluation of flank pain and increased urinary frequency. Patient reports prior to this past Thursday she was in her normal state of health. On she began to note feeling of malaise, increased urinary frequency, and some left flank pain. This morning when she woke up she noted a bruise on her left side, worsening left flank pain, and increased frequency of urination. She denies any recent trauma, fevers, chills, vomiting, diarrhea, chest pressure, chest pain, pain with urination, focal neurological symptoms. Patient states she has never had any similar episodes before. Patient also notes her urine has a bad smell and is very cloudy. 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 In the emergency department she endorsed the symptoms as noted above, vital signs have been stable, routine labs were obtained. CBC was unremarkable, coagulation labs were unremarkable, Chem-7 demonstrated a potassium of 2.5, glucose of 106, mag of 1.6, CRP of 0.67, UA was cloudy with blood, leuk esterase, budding yeast, bacteria, tox screen was positive for marijuana. Covid negative, anaplasmosis negative, Lyme negative, liver function studies within normal limits. KUB was unremarkable, CT abdomen pelvis pending . Given patient's significant symptoms, she will be admitted for further evaluation and management of her complicated UTI Primary Care Provider: Tiara Tucker PA-C Allergies Allergy/AdvReac Type Severity Reaction Status Date / Time Lady Bugs Allergy Intermediate Swelling Uncoded 04/26/21 21:39 and hives Home Medications Medication Instructions Recorded Confirmed Type insulin lispro 100 unit/mL 8 unit SUBCUT BID 07/13/19 04/26/21 History subcutaneous pen (Humalog KwikPen (U-100) Insulin) levonorgestrel-ethinyl estradiol 1 tab PO QAM 07/13/19 04/26/21 History 0.1 mg-20 mcg tablet (Lutera (28)) fluticasone propionate 50 2 spray INTRANASAL DAILY 04/26/21 04/26/21 History mcg/actuation nasal spray,suspension metoclopramide HCl 10 mg tablet 10 mg PO QAM 04/26/21 04/26/21 History omeprazole 40 mg capsule,delayed 40 mg PO QAM 04/26/21 04/26/21 History release Past Med/Surg History Medical History (Updated 04/27/21 @ 13:21 by Gela Carranza PA-C) Boils Diabetes Frequent loose stools Surgical History No significant past surgical history Social History Smoking Status: Never smoker Hx Alcohol Use: No Hx Substance Use: Yes (pt tested positive in ED but states "no") Preferred Language: Croatian Communication Ability: Effective 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 Beliefs That Will Affect Care: None Current Living Situation: Parent Other Information That Helps Us Care for You: No Feels Safe at Home: Yes Safety Concerns: Feels Safe At This Time Assistive Devices: None Review of Systems Review of Systems: All systems reviewed & are unremarkable except as noted in HPI & below Physical Exam Physical Exam: General: No acute distress HEENT: Normocephalic atraumatic Neck: No significant lymphadenopathy, trachea midline, normal to visual inspection Cardiac: Regular rate and rhythm, normal S1, normal S2, I did not appreciated any significant murmurs rubs or gallops, I did not appreciate any significant pedal edema, No calf tenderness, capillary refill is less than 3 seconds Respiratory: Clear to auscultation bilaterally with symmetrical chest rise, I did not appreciate any significant wheezes, rales, rhonchi, no increased work of breathing GI: Normal bowel sounds, soft, nontender in all 4 quadrants, nondistended. Left-sided CVA tenderness MSK: No sensory or motor changes, moves all extremities without issue, extremities are warm and well-perfused Skin: [place], clean, dry, intact. Fading bruise on the left lower quadrant of her abdomen Neuro: Alert and oriented x4 Psych: Calm, cooperative, logical thought process Results & Data Results & Data ([facility]) Vital Signs (Past 12 Hours) Vital Signs Pulse Pulse Resp BP BP Pulse Ox 04/27/21 00:30 75 16 112/62 98 04/27/21 00:00 71 15 90/47 L 97 04/26/21 23:30 79 18 118/70 98 04/26/21 23:00 75 18 122/68 99 04/26/21 22:30 87 118/69 99 04/26/21 22:04 98 H 20 130/77 97 04/26/21 21:30 94 H 20 148/77 H 97 04/26/21 21:17 100 H 20 154/79 H 97 04/26/21 20:00 96 H 18 124/71 98 04/26/21 18:13 78 18 105/59 L 97 Laboratory Results 04/26/21 04/26/21 04/26/21 Range/Units 23:30 23:30 23:01 WBC (4.8-10.8) K/uL RBC (4.2-5.4) M/uL Hgb (12.0-16.0) g/dL Hct (37-47) % MCV (80-100) fL MCH (25-34) pg MCHC (32-36) g/dL RDW Std Deviation (36.4-46.3) fL RDW Coeff of Mil (11.5-14.5) % Plt Count (130-400) K/uL MPV (7.4-10.4) fL Immature Gran % (Auto) % Neut % (Auto) % Lymph % (Auto) % [place] % (Auto) % Eos % (Auto) % Baso % (Auto) % Neut # (Auto) (1.4-6.5) K/uL Lymph # (Auto) (1.2-3.4) K/uL [place] # (Auto) (0.11-0.59) K/uL Eos # (Auto) (0-0.5) K/uL Baso # (Auto) (0-0.2) K/uL Immature Gran # (Auto) (0.00-0.02) K/uL ESR (0-20) mm/hr PT (9.0-12.0) Seconds INR (0.9-1.1) APTT (21.0-31.0) Seconds PTT Ratio D-Dimer (0-500) ug/L FEU Sodium (136-145) mmol/L Potassium (3.5-5.1) mmol/L Chloride (98-107) mmol/L Carbon Dioxide (21-32) mmol/L Anion Gap (3-11) BUN (7-18) mg/dl Creatinine (0.6-1.2) mg/dl Est Cr Clr Drug Dosing ml/min Est GFR ( Amer) ml/min Est GFR (Non-Af Amer) ml/min BUN/Creatinine Ratio (10-20) Glucose (70-99) mg/dl POC Glucose 144 H (70-99) mg/dl Calcium (8.5-10.1) mg/dl Magnesium (1.8-2.4) mg/dl Total Bilirubin (0.2-1) mg/dl AST (15-37) U/L ALT (12-78) U/L Alkaline Phosphatase (45-117) U/L Troponin I (0-0.045) ng/ml C-Reactive Protein (0-0.29) mg/dl Total Protein (6.4-8.2) gm/dl Albumin (3.4-5.0) gm/dl Globulin (2.5-4.0) gm/dl Albumin/Globulin Ratio (0.9-2) Lipase (73-393) U/L TSH (0.300-4.500) uIu/ml Urine Color Urine Appearance (Clear) Urine pH (4.5-7.5) Ur Specific [place] (1.000-1.030) Urine Protein (Negative) Urine Glucose (UA) (Negative) Urine Ketones (Negative) Urine Blood (Negative) Urine Nitrite (Negative) Urine Bilirubin (Negative) Urine Urobilinogen (Negative) Ur Leukocyte Esterase (Negative) Urine WBC (Auto) (0-5) /hpf Urine RBC (Auto) (0-4) /hpf U Hyaline Cast (Auto) (0-5) /lpf U Epithel Cells (Auto) (0-5) /lpf Urine Bacteria (Auto) (Negative) Urine Yeast (None Prsent) Urine Test (Negative) POC Ur Test (NEG) Urine Opiates Screen (Neg) Ur Methadone, Qual (Neg) Urine Barbiturates (Neg) Ur Phencyclidine (PCP) (Neg) U Amphetamin/Meth Scrn (Neg) MDMA (Ecstasy) Screen (Neg) U Benzodiazepines Scrn (Neg) Ur Cocaine Metabolite (Neg) U Marijuana (THC) Screen (Neg) U Marijuana THC Carboxy Drug Screen Comment Anaplasma Smear A. phagocytophilum DNA Lyme Disease IgG Ab Lyme Disease IgM Ab COVID-19 Eval Order Covid19 at [facility] SARS-CoV-2 (PCR) NEGATIVE (Negative) Monoscreen 04/26/21 04/26/21 04/26/21 Range/Units 22:20 22:20 22:20 WBC (4.8-10.8) K/uL RBC (4.2-5.4) M/uL Hgb (12.0-16.0) g/dL Hct (37-47) % MCV (80-100) fL MCH (25-34) pg MCHC (32-36) g/dL RDW Std Deviation (36.4-46.3) fL RDW Coeff of Mil (11.5-14.5) % Plt Count (130-400) K/uL MPV (7.4-10.4) fL Immature Gran % (Auto) % Neut % (Auto) % Lymph % (Auto) % [place] % (Auto) % Eos % (Auto) % Baso % (Auto) % Neut # (Auto) (1.4-6.5) K/uL Lymph # (Auto) (1.2-3.4) K/uL [place] # (Auto) (0.11-0.59) K/uL Eos # (Auto) (0-0.5) K/uL Baso # (Auto) (0-0.2) K/uL Immature Gran # (Auto) (0.00-0.02) K/uL ESR (0-20) mm/hr PT (9.0-12.0) Seconds INR (0.9-1.1) APTT (21.0-31.0) Seconds PTT Ratio D-Dimer (0-500) ug/L FEU Sodium (136-145) mmol/L Potassium (3.5-5.1) mmol/L Chloride (98-107) mmol/L Carbon Dioxide (21-32) mmol/L Anion Gap (3-11) BUN (7-18) mg/dl Creatinine (0.6-1.2) mg/dl Est Cr Clr Drug Dosing ml/min Est GFR ( Amer) ml/min Est GFR (Non-Af Amer) ml/min BUN/Creatinine Ratio (10-20) Glucose (70-99) mg/dl POC Glucose (70-99) mg/dl Calcium (8.5-10.1) mg/dl Magnesium (1.8-2.4) mg/dl Total Bilirubin (0.2-1) mg/dl AST (15-37) U/L ALT (12-78) U/L Alkaline Phosphatase (45-117) U/L Troponin I (0-0.045) ng/ml C-Reactive Protein (0-0.29) mg/dl Total Protein (6.4-8.2) gm/dl Albumin (3.4-5.0) gm/dl Globulin (2.5-4.0) gm/dl Albumin/Globulin Ratio (0.9-2) Lipase (73-393) U/L TSH (0.300-4.500) uIu/ml Urine Color Urine Appearance (Clear) Urine pH (4.5-7.5) Ur Specific [place] (1.000-1.030) Urine Protein (Negative) Urine Glucose (UA) (Negative) Urine Ketones (Negative) Urine Blood (Negative) Urine Nitrite (Negative) Urine Bilirubin (Negative) Urine Urobilinogen (Negative) Ur Leukocyte Esterase (Negative) Urine WBC (Auto) (0-5) /hpf Urine RBC (Auto) (0-4) /hpf U Hyaline Cast (Auto) (0-5) /lpf U Epithel Cells (Auto) (0-5) /lpf Urine Bacteria (Auto) (Negative) Urine Yeast (None Prsent) Urine Test (Negative) POC Ur Test NEG (NEG) Urine Opiates Screen Neg (Neg) Ur Methadone, Qual Neg (Neg) Urine Barbiturates Neg (Neg) Ur Phencyclidine (PCP) Neg (Neg) U Amphetamin/Meth Scrn Neg (Neg) MDMA (Ecstasy) Screen Neg (Neg) U Benzodiazepines Scrn Neg (Neg) Ur Cocaine Metabolite Neg (Neg) U Marijuana (THC) Screen Pos H (Neg) U Marijuana THC Carboxy Pending Drug Screen Comment Pending Anaplasma Smear A. phagocytophilum DNA Lyme Disease IgG Ab Lyme Disease IgM Ab COVID-19 Eval Order SARS-CoV-2 (PCR) (Negative) Monoscreen 04/26/21 04/26/21 04/26/21 Range/Units 22:06 22:00 22:00 WBC (4.8-10.8) K/uL RBC (4.2-5.4) M/uL Hgb (12.0-16.0) g/dL Hct (37-47) % MCV (80-100) fL MCH (25-34) pg MCHC (32-36) g/dL RDW Std Deviation (36.4-46.3) fL RDW Coeff of Mil (11.5-14.5) % Plt Count (130-400) K/uL MPV (7.4-10.4) fL Immature Gran % (Auto) % Neut % (Auto) % Lymph % (Auto) % [place] % (Auto) % Eos % (Auto) % Baso % (Auto) % Neut # (Auto) (1.4-6.5) K/uL Lymph # (Auto) (1.2-3.4) K/uL [place] # (Auto) (0.11-0.59) K/uL Eos # (Auto) (0-0.5) K/uL Baso # (Auto) (0-0.2) K/uL Immature Gran # (Auto) (0.00-0.02) K/uL ESR (0-20) mm/hr PT (9.0-12.0) Seconds INR (0.9-1.1) APTT (21.0-31.0) Seconds PTT Ratio D-Dimer (0-500) ug/L FEU Sodium (136-145) mmol/L Potassium (3.5-5.1) mmol/L Chloride (98-107) mmol/L Carbon Dioxide (21-32) mmol/L Anion Gap (3-11) BUN (7-18) mg/dl Creatinine (0.6-1.2) mg/dl Est Cr Clr Drug Dosing ml/min Est GFR ( Amer) ml/min Est GFR (Non-Af Amer) ml/min BUN/Creatinine Ratio (10-20) Glucose (70-99) mg/dl POC Glucose 102 H (70-99) mg/dl Calcium (8.5-10.1) mg/dl Magnesium (1.8-2.4) mg/dl Total Bilirubin (0.2-1) mg/dl AST (15-37) U/L ALT (12-78) U/L Alkaline Phosphatase (45-117) U/L Troponin I (0-0.045) ng/ml C-Reactive Protein (0-0.29) mg/dl Total Protein (6.4-8.2) gm/dl Albumin (3.4-5.0) gm/dl Globulin (2.5-4.0) gm/dl Albumin/Globulin Ratio (0.9-2) Lipase (73-393) U/L TSH (0.300-4.500) uIu/ml Urine Color Yellow Urine Appearance Cloudy A (Clear) Urine pH 5.0 (4.5-7.5) Ur Specific [place] 1.030 (1.000-1.030) Urine Protein 1+ H (Negative) Urine Glucose (UA) 3+ H (Negative) Urine Ketones Trace H (Negative) Urine Blood 3+ H (Negative) Urine Nitrite Negative (Negative) Urine Bilirubin Negative (Negative) Urine Urobilinogen Negative (Negative) Ur Leukocyte Esterase 1+ H (Negative) Urine WBC (Auto) >30 H (0-5) /hpf Urine RBC (Auto) 10-30 H (0-4) /hpf U Hyaline Cast (Auto) 0 (0-5) /lpf U Epithel Cells (Auto) 10-20 H (0-5) /lpf Urine Bacteria (Auto) 3+ H (Negative) Urine Yeast Budding A (None Prsent) Urine Test Negative (Negative) POC Ur Test (NEG) Urine Opiates Screen (Neg) Ur Methadone, Qual (Neg) Urine Barbiturates (Neg) Ur Phencyclidine (PCP) (Neg) U Amphetamin/Meth Scrn (Neg) MDMA (Ecstasy) Screen (Neg) U Benzodiazepines Scrn (Neg) Ur Cocaine Metabolite (Neg) U Marijuana (THC) Screen (Neg) U Marijuana THC Carboxy Drug Screen Comment Anaplasma Smear A. phagocytophilum DNA Lyme Disease IgG Ab Lyme Disease IgM Ab COVID-19 Eval Order SARS-CoV-2 (PCR) (Negative) Monoscreen 04/26/21 04/26/21 04/26/21 Range/Units 21:41 21:28 21:19 WBC (4.8-10.8) K/uL RBC (4.2-5.4) M/uL Hgb (12.0-16.0) g/dL Hct (37-47) % MCV (80-100) fL MCH (25-34) pg MCHC (32-36) g/dL RDW Std Deviation (36.4-46.3) fL RDW Coeff of Mil (11.5-14.5) % Plt Count (130-400) K/uL MPV (7.4-10.4) fL Immature Gran % (Auto) % Neut % (Auto) % Lymph % (Auto) % [place] % (Auto) % Eos % (Auto) % Baso % (Auto) % Neut # (Auto) (1.4-6.5) K/uL Lymph # (Auto) (1.2-3.4) K/uL [place] # (Auto) (0.11-0.59) K/uL Eos # (Auto) (0-0.5) K/uL Baso # (Auto) (0-0.2) K/uL Immature Gran # (Auto) (0.00-0.02) K/uL ESR (0-20) mm/hr PT (9.0-12.0) Seconds INR (0.9-1.1) APTT (21.0-31.0) Seconds PTT Ratio D-Dimer (0-500) ug/L FEU Sodium (136-145) mmol/L Potassium (3.5-5.1) mmol/L Chloride (98-107) mmol/L Carbon Dioxide (21-32) mmol/L Anion Gap (3-11) BUN (7-18) mg/dl Creatinine (0.6-1.2) mg/dl Est Cr Clr Drug Dosing ml/min Est GFR ( Amer) ml/min Est GFR (Non-Af Amer) ml/min BUN/Creatinine Ratio (10-20) Glucose (70-99) mg/dl POC Glucose 132 H 26 L* 27 L* (70-99) mg/dl Calcium (8.5-10.1) mg/dl Magnesium (1.8-2.4) mg/dl Total Bilirubin (0.2-1) mg/dl AST (15-37) U/L ALT (12-78) U/L Alkaline Phosphatase (45-117) U/L Troponin I (0-0.045) ng/ml C-Reactive Protein (0-0.29) mg/dl Total Protein (6.4-8.2) gm/dl Albumin (3.4-5.0) gm/dl Globulin (2.5-4.0) gm/dl Albumin/Globulin Ratio (0.9-2) Lipase (73-393) U/L TSH (0.300-4.500) uIu/ml Urine Color Urine Appearance (Clear) Urine pH (4.5-7.5) Ur Specific [place] (1.000-1.030) Urine Protein (Negative) Urine Glucose (UA) (Negative) Urine Ketones (Negative) Urine Blood (Negative) Urine Nitrite (Negative) Urine Bilirubin (Negative) Urine Urobilinogen (Negative) Ur Leukocyte Esterase (Negative) Urine WBC (Auto) (0-5) /hpf Urine RBC (Auto) (0-4) /hpf U Hyaline Cast (Auto) (0-5) /lpf U Epithel Cells (Auto) (0-5) /lpf Urine Bacteria (Auto) (Negative) Urine Yeast (None Prsent) Urine Test (Negative) POC Ur Test (NEG) Urine Opiates Screen (Neg) Ur Methadone, Qual (Neg) Urine Barbiturates (Neg) Ur Phencyclidine (PCP) (Neg) U Amphetamin/Meth Scrn (Neg) MDMA (Ecstasy) Screen (Neg) U Benzodiazepines Scrn (Neg) Ur Cocaine Metabolite (Neg) U Marijuana (THC) Screen (Neg) U Marijuana THC Carboxy Drug Screen Comment Anaplasma Smear A. phagocytophilum DNA Lyme Disease IgG Ab Lyme Disease IgM Ab COVID-19 Eval Order SARS-CoV-2 (PCR) (Negative) Monoscreen 04/26/21 04/26/21 04/26/21 Range/Units 20:50 20:50 19:40 WBC (4.8-10.8) K/uL RBC (4.2-5.4) M/uL Hgb (12.0-16.0) g/dL Hct (37-47) % MCV (80-100) fL MCH (25-34) pg MCHC (32-36) g/dL RDW Std Deviation (36.4-46.3) fL RDW Coeff of Mil (11.5-14.5) % Plt Count (130-400) K/uL MPV (7.4-10.4) fL Immature Gran % (Auto) % Neut % (Auto) % Lymph % (Auto) % [place] % (Auto) % Eos % (Auto) % Baso % (Auto) % Neut # (Auto) (1.4-6.5) K/uL Lymph # (Auto) (1.2-3.4) K/uL [place] # (Auto) (0.11-0.59) K/uL Eos # (Auto) (0-0.5) K/uL Baso # (Auto) (0-0.2) K/uL Immature Gran # (Auto) (0.00-0.02) K/uL ESR (0-20) mm/hr PT (9.0-12.0) Seconds INR (0.9-1.1) APTT (21.0-31.0) Seconds PTT Ratio D-Dimer (0-500) ug/L FEU Sodium (136-145) mmol/L Potassium 2.5 L* (3.5-5.1) mmol/L Chloride (98-107) mmol/L Carbon Dioxide (21-32) mmol/L Anion Gap (3-11) BUN (7-18) mg/dl Creatinine (0.6-1.2) mg/dl Est Cr Clr Drug Dosing ml/min Est GFR ( Amer) ml/min Est GFR (Non-Af Amer) ml/min BUN/Creatinine Ratio (10-20) Glucose (70-99) mg/dl POC Glucose (70-99) mg/dl Calcium (8.5-10.1) mg/dl Magnesium 1.6 L (1.8-2.4) mg/dl Total Bilirubin (0.2-1) mg/dl AST 16 (15-37) U/L ALT (12-78) U/L Alkaline Phosphatase (45-117) U/L Troponin I (0-0.045) ng/ml C-Reactive Protein (0-0.29) mg/dl Total Protein (6.4-8.2) gm/dl Albumin (3.4-5.0) gm/dl Globulin (2.5-4.0) gm/dl Albumin/Globulin Ratio (0.9-2) Lipase (73-393) U/L TSH (0.300-4.500) uIu/ml Urine Color Urine Appearance (Clear) Urine pH (4.5-7.5) Ur Specific [place] (1.000-1.030) Urine Protein (Negative) Urine Glucose (UA) (Negative) Urine Ketones (Negative) Urine Blood (Negative) Urine Nitrite (Negative) Urine Bilirubin (Negative) Urine Urobilinogen (Negative) Ur Leukocyte Esterase (Negative) Urine WBC (Auto) (0-5) /hpf Urine RBC (Auto) (0-4) /hpf U Hyaline Cast (Auto) (0-5) /lpf U Epithel Cells (Auto) (0-5) /lpf Urine Bacteria (Auto) (Negative) Urine Yeast (None Prsent) Urine Test (Negative) POC Ur Test (NEG) Urine Opiates Screen (Neg) Ur Methadone, Qual (Neg) Urine Barbiturates (Neg) Ur Phencyclidine (PCP) (Neg) U Amphetamin/Meth Scrn (Neg) MDMA (Ecstasy) Screen (Neg) U Benzodiazepines Scrn (Neg) Ur Cocaine Metabolite (Neg) U Marijuana (THC) Screen (Neg) U Marijuana THC Carboxy Drug Screen Comment Anaplasma Smear A. phagocytophilum DNA Lyme Disease IgG Ab Negative Cancelled Lyme Disease IgM Ab Negative Cancelled COVID-19 Eval Order SARS-CoV-2 (PCR) (Negative) Monoscreen Negative Cancelled 04/26/21 04/26/21 04/26/21 Range/Units 19:40 19:40 19:40 WBC (4.8-10.8) K/uL RBC (4.2-5.4) M/uL Hgb (12.0-16.0) g/dL Hct (37-47) % MCV (80-100) fL MCH (25-34) pg MCHC (32-36) g/dL RDW Std Deviation (36.4-46.3) fL RDW Coeff of Mil (11.5-14.5) % Plt Count (130-400) K/uL MPV (7.4-10.4) fL Immature Gran % (Auto) % Neut % (Auto) % Lymph % (Auto) % [place] % (Auto) % Eos % (Auto) % Baso % (Auto) % Neut # (Auto) (1.4-6.5) K/uL Lymph # (Auto) (1.2-3.4) K/uL [place] # (Auto) (0.11-0.59) K/uL Eos # (Auto) (0-0.5) K/uL Baso # (Auto) (0-0.2) K/uL Immature Gran # (Auto) (0.00-0.02) K/uL ESR 18 (0-20) mm/hr PT 10.1 (9.0-12.0) Seconds INR 1.0 (0.9-1.1) APTT 23.9 (21.0-31.0) Seconds PTT Ratio 0.9 D-Dimer 480 (0-500) ug/L FEU Sodium 139 (136-145) mmol/L Potassium (3.5-5.1) mmol/L Chloride 108 H (98-107) mmol/L Carbon Dioxide 24 (21-32) mmol/L Anion Gap 6.0 (3-11) BUN 9 (7-18) mg/dl Creatinine 0.58 L (0.6-1.2) mg/dl Est Cr Clr Drug Dosing 169.7 ml/min Est GFR ( Amer) > 150.0 ml/min Est GFR (Non-Af Amer) 130.8 ml/min BUN/Creatinine Ratio 15.0 (10-20) Glucose 106 H (70-99) mg/dl POC Glucose (70-99) mg/dl Calcium 9.3 (8.5-10.1) mg/dl Magnesium (1.8-2.4) mg/dl Total Bilirubin 0.4 (0.2-1) mg/dl AST (15-37) U/L ALT 39 (12-78) U/L Alkaline Phosphatase 74 (45-117) U/L Troponin I < 0.015 (0-0.045) ng/ml C-Reactive Protein 0.67 H (0-0.29) mg/dl Total Protein 7.6 (6.4-8.2) gm/dl Albumin 3.4 (3.4-5.0) gm/dl Globulin 4.2 H (2.5-4.0) gm/dl Albumin/Globulin Ratio 0.8 L (0.9-2) Lipase 137 (73-393) U/L TSH 0.871 (0.300-4.500) uIu/ml Urine Color Urine Appearance (Clear) Urine pH (4.5-7.5) Ur Specific [place] (1.000-1.030) Urine Protein (Negative) Urine Glucose (UA) (Negative) Urine Ketones (Negative) Urine Blood (Negative) Urine Nitrite (Negative) Urine Bilirubin (Negative) Urine Urobilinogen (Negative) Ur Leukocyte Esterase (Negative) Urine WBC (Auto) (0-5) /hpf Urine RBC (Auto) (0-4) /hpf U Hyaline Cast (Auto) (0-5) /lpf U Epithel Cells (Auto) (0-5) /lpf Urine Bacteria (Auto) (Negative) Urine Yeast (None Prsent) Urine Test (Negative) POC Ur Test (NEG) Urine Opiates Screen (Neg) Ur Methadone, Qual (Neg) Urine Barbiturates (Neg) Ur Phencyclidine (PCP) (Neg) U Amphetamin/Meth Scrn (Neg) MDMA (Ecstasy) Screen (Neg) U Benzodiazepines Scrn (Neg) Ur Cocaine Metabolite (Neg) U Marijuana (THC) Screen (Neg) U Marijuana THC Carboxy Drug Screen Comment Anaplasma Smear A. phagocytophilum DNA Lyme Disease IgG Ab Lyme Disease IgM Ab COVID-19 Eval Order SARS-CoV-2 (PCR) (Negative) Monoscreen 04/26/21 04/26/21 Range/Units 19:40 19:40 WBC 9.38 (4.8-10.8) K/uL RBC 5.14 (4.2-5.4) M/uL Hgb 14.8 (12.0-16.0) g/dL Hct 42.3 (37-47) % MCV 82.3 (80-100) fL MCH 28.8 (25-34) pg MCHC 35.0 (32-36) g/dL RDW Std Deviation 38.7 (36.4-46.3) fL RDW Coeff of Mil 12.8 (11.5-14.5) % Plt Count 187 (130-400) K/uL MPV 13.2 H (7.4-10.4) fL Immature Gran % (Auto) 0.2 % Neut % (Auto) 55.0 % Lymph % (Auto) 37.6 % [place] % (Auto) 5.9 % Eos % (Auto) 1.1 % Baso % (Auto) 0.2 % Neut # (Auto) 5.16 (1.4-6.5) K/uL Lymph # (Auto) 3.53 H (1.2-3.4) K/uL [place] # (Auto) 0.55 (0.11-0.59) K/uL Eos # (Auto) 0.10 (0-0.5) K/uL Baso # (Auto) 0.02 (0-0.2) K/uL Immature Gran # (Auto) 0.02 (0.00-0.02) K/uL ESR (0-20) mm/hr PT (9.0-12.0) Seconds INR (0.9-1.1) APTT (21.0-31.0) Seconds PTT Ratio D-Dimer (0-500) ug/L FEU Sodium (136-145) mmol/L Potassium (3.5-5.1) mmol/L Chloride (98-107) mmol/L Carbon Dioxide (21-32) mmol/L Anion Gap (3-11) BUN (7-18) mg/dl Creatinine (0.6-1.2) mg/dl Est Cr Clr Drug Dosing ml/min Est GFR ( Amer) ml/min Est GFR (Non-Af Amer) ml/min BUN/Creatinine Ratio (10-20) Glucose (70-99) mg/dl POC Glucose (70-99) mg/dl Calcium (8.5-10.1) mg/dl Magnesium (1.8-2.4) mg/dl Total Bilirubin (0.2-1) mg/dl AST (15-37) U/L ALT (12-78) U/L Alkaline Phosphatase (45-117) U/L Troponin I (0-0.045) ng/ml C-Reactive Protein (0-0.29) mg/dl Total Protein (6.4-8.2) gm/dl Albumin (3.4-5.0) gm/dl Globulin (2.5-4.0) gm/dl Albumin/Globulin Ratio (0.9-2) Lipase (73-393) U/L TSH (0.300-4.500) uIu/ml Urine Color Urine Appearance (Clear) Urine pH (4.5-7.5) Ur Specific [place] (1.000-1.030) Urine Protein (Negative) Urine Glucose (UA) (Negative) Urine Ketones (Negative) Urine Blood (Negative) Urine Nitrite (Negative) Urine Bilirubin (Negative) Urine Urobilinogen (Negative) Ur Leukocyte Esterase (Negative) Urine WBC (Auto) (0-5) /hpf Urine RBC (Auto) (0-4) /hpf U Hyaline Cast (Auto) (0-5) /lpf U Epithel Cells (Auto) (0-5) /lpf Urine Bacteria (Auto) (Negative) Urine Yeast (None Prsent) Urine Test (Negative) POC Ur Test (NEG) Urine Opiates Screen (Neg) Ur Methadone, Qual (Neg) Urine Barbiturates (Neg) Ur Phencyclidine (PCP) (Neg) U Amphetamin/Meth Scrn (Neg) MDMA (Ecstasy) Screen (Neg) U Benzodiazepines Scrn (Neg) Ur Cocaine Metabolite (Neg) U Marijuana (THC) Screen (Neg) U Marijuana THC Carboxy Drug Screen Comment Anaplasma Smear See Comment A. phagocytophilum DNA Pending Lyme Disease IgG Ab Lyme Disease IgM Ab COVID-19 Eval Order SARS-CoV-2 (PCR) (Negative) Monoscreen Code Status & VTE Plan Code Status full VTE Prophylaxis Plan VTE Prophylaxis will be ordered: Yes Supervising Physician Co-Signing Physician Notes Attending addendum: I have physically seen this patient, have supervised the medical residents activities, and agree with the H&P unless as otherwise noted. Assessment and Plan: Urinary tract infection- Follow urine culture sensitivity Ceftriaxone 1 g IV daily LR at 125 mils per hour x2 L Hypokalemia- Potassium 2.5 upon admission. Received partial replacement in the ED Continue with oral and IV supplementation Recheck laboratories in a.m. No significant ectopy noted while in ED, but will admit to monitored bed to continue to follow Diabetes mellitus- Placed on Accu-Cheks before meals and at bedtime with NovoLog coverage per scale Hold lispro Check hemoglobin A1c GERD-- Continue omeprazole/pantoprazole Remaining orders and notations as noted Resident Activity Tracking Resident Involvement: Resident Care Provided Care Provided: Adult Hospital Medicine
[2021-04-27] MEDS ORDERED: MoRPHine SULFATE 2 MG/ML CARP IV PRN (05:46)
[2021-04-27] MEDS ORDERED: MoRPHine SULFATE 4 MG/ML 1 ML CARP\\VIAL IV PRN (05:46)
[2021-04-27] MEDS ORDERED: ACETAMINOPHEN 500 MG TAB PO PRN (05:46)
[2021-04-27] MEDS ORDERED: PHARMACY GLYCEMIC MGMT CONSULT PRN (06:07)
[2021-04-27] MEDS: POTASSIUM CHLORIDE CRTAB 20 MEQ TABCR PO SCH ×2 (06:45→07:41)
--- NOTE | 2021-04-27 07:50 | CT Scan Report ---
ABDOMEN AND PELVIS CT WITHOUT CONTRAST CT DOSE: 417.39 mGy.cm HISTORY: Left flank pain. Pyelonephritis. TECHNIQUE: Multiaxial CT images of the abdomen and pelvis were performed without contrast. A dose lo wering technique was utilized adhering to the principles of ALARA. COMPARISON STUDY: Abdomen and pelvis CT 05/08/2020. FINDINGS: Stable 6 cm subpleural nodular density within the left lower lobe on image 3. This is likel y benign given the patient's age. No pneumoperitoneum. No pneumatosis. No fractures within the visual ized osseous structures. The unenhanced liver, gallbladder, pancreas, spleen, adrenal glands, and kid neys are unremarkable. No renal stones or hydronephrosis. There is mild bladder wall thickening. The uterus and bilateral adnexa are unremarkable. No pelvic free fluid. Fluid-filled nondilated large and small bowel. Normal appendix. No bowel wall thickening or obstruction. However, there is suboptimal evaluation for bowel pathology due to the lack of intravenous and oral contrast. IMPRESSION: 1. Mild bladder wall thickening. This may represent a cystitis. Recommend correlation with urinalysis . 2. No renal or ureteral stones. No hydronephrosis. 3. Fluid-filled large and small bowel suggesting a gastroenteritis/diarrheal illness. 4. Normal appendix. ACT 112: Negative or not required by law. Electronically signed by: Edison Marmolejo M.D. 04/27/2021 7:49 AM
[2021-04-27] MEDS: ENOXAPARIN INJ 40 MG/0.4 ML SYR SQ SCH (08:37)
[2021-04-27] MEDS: METOCLOPRAMIDE HCL 10 MG TABLET PO SCH (08:37)
[2021-04-27] MEDS: FLUTICASONE PROPIONATE NA SPR 16 GM BTL SCH (08:37)
[2021-04-27 08:42] LABS: Hematocrit (blood only) 39.4 % (37-47); Hemoglobin 13.5 g/dL (12.0-16.0); Mean Corpuscular Hgb Conc 34.3 g/dL (32-36); Mean Corpuscular Volume 84.7 fL (80-100); Platelet Count 187 K/uL (130-400); RDW Coefficient of Variation 13.3 % (11.5-14.5); RDW Standard Deviation 40.5 fL (36.4-46.3); Red Blood Count 4.65 M/uL (4.2-5.4); White Blood Count 9.25 K/uL (4.8-10.8)
[2021-04-27] MEDS: INSULIN HUMAN REGULAR SC SCH ×2 (08:45→13:00)
[2021-04-27] MEDS ORDERED: NON-FORMULARY MEDICATION (Insulin Lispro [Humalog Kwikpen Insulin] 100 unit/mL insulin pen SQ SCH (09:00)
[2021-04-27] MEDS ORDERED: POLYETHYLENE (MIRALAX) 17 GM PACK PO SCH (09:00)
[2021-04-27] MEDS ORDERED: PANTOprazole 40 MG TAB PO SCH (09:00)
--- NOTE | 2021-04-27 09:15 | Hospitalist Progress Note ---
Date of Service April 27, 2021 Assessment & Plan (1) UTI (urinary tract infection): Plan: Patient's clinical history, laboratory findings and physical exam findings are consistent with a urinary tract infection. She has been started on ceftriaxone urine cultures have been sent narrow antibiotics pending speciation and sensitivities. Given her history of left-sided abdominal bruising and CVA tenderness obtain CT abdomen pelvis CTAP: * 1. Mild bladder wall thickening. This may represent a cystitis. Recommend correlation with urinalysis. * 2. No renal or ureteral stones. No hydronephrosis. * 3. Fluid-filled large and small bowel suggesting a gastroenteritis/diarrheal illness. * 4. Normal appendix. Prior urine cx 2019 Ecoli, pansensitive UA with 1+ protein, 3+ glucose, trace ketone, 3+ blood, 1+ leuk est, >30WBC, 10-30 RBC, 10-20 epi, 3+ bacteria, budding yeast (Of note, just got menses as well) Placed on Ceftriaxone -- continued Monitor urine cx/s. May also need to give dose of antifungal -- consider treating for extended course given +CVA tenderness on examination NSS +20K @ 100cc/hr for now DM I diet EKG on admission with sinus tachycardia, nonspecific ST and T wave abnormality. --> DId have K 2.5 and mag 1.6 on admission. Will repeat EKG in AM with normalization of electrolytes. Trop <0.015 Continue to monitor (2) Diabetes: Plan: Dx since age 11 Had been without insurance several times over past year and reported a 2 year period of time when she did not have any insulin. Prior lead qa analyst left the area and she has not been back bc she saw a gentleman "that was rude" and "my fault I haven't been back" BSG low 26/27 on admission but she notes she took her insulin and then did not eat anything Pharmacy consulted for glycemic management -- [facility] regimen with lispro 8u BID A1c 14.4, elevated beta-hydroxybutrate 6.08 Non-anion gap BSGs increased this afternoon as she has been eating and did get D5 with her magnesium replacement. No kussmal breathin/tachycardia Consult environmental educator, CM Will need to ensure proper supplies and medications at home as she had been stockpiling due to lack of follow up. Will need to resent rxs at d/c, possible sent up with Dr Purvis at discharge (patient from [facility]) BSG AC/HS ISS Continue to monitor (3) Hypokalemia: Plan: Patient presenting with potassium of 2.5. Repleted 20 MEQ's in the ED. ordered additional 40 MEQ's for a total of 60 M EQ's overnight. Mag also low, no replacement ordered Replacement ordered and repeat labs with K 3.9, mag 1.8 Continue to monitor on AM labs (4) Abdominal pain: Plan: Secondary to UTI as well as possible diarrhea illness as seen on CTAP above Improving with tx UTI PPI increased to BID -- consider continued use at d/c Avoid NSAIDs -- had been using ibuprofen daily for over past month Stool studies sent Tylenol, morphine prn pain -- will add oxycodone prn to have middle level of pain control if IV not needed Continue to monitor (5) Frequent loose stools: Plan: States chronicity of this issue Stool studies as above (6) Tick bite: Plan: X2 in past month Anaplasmosis smear, Lyme antibody testing negative Anaplasmosis PCR pending -- does not have abn LFTs, low plt, etc (7) Gastroparesis: Plan: Chronically on metoclopramide 10mg daily -- continued however considering holding given continued diarrhea Also with seasonal allergies --> fluticasone continued, however will add zyrtec as well give reflux type symptoms and congestion (8) DVT prophylaxis: Plan: LOvenox SQ while inpatient Dispo: continued inpatient stay Of note, +THC on urine drug -- will need to discuss in AM to see if pt with rx for this Admission and Anticipated Discharge Date Admission Date: April 27, 2021 Subjective BRIDGE NOTE: ADMITTED AFTER MIDNIGHT Patient evaluated this afternoon. Feeling better than when she came in. Had increased thirst/urination/foul urine/LUQ discomfort on admission. A1c 14 and she is unsure of prior value but thought it was actually higher. Needs re-established with endocrine. She has been a DM since age 11. Takes 8 units BID typically at home. Low BSG on admission due to her taking her insulin and not having eaten anything. She thought only from UTI but could have had some DKA as she has been without insurance for 2 years and only over past couple months got it again. Has been stockpiling her insulin and only has limited supply at home. Diarrhea, but states this is chronic. Also with her LUQ pain -- she has been taking ibuprofen 2-3 tablets for over past month due to "generally not feeling well" and discussed she could have some irritation from this and we will increase her PPI to BID. No fever, chills, chest pain, shortness of breath (above baseline), vomiting. Abd pain improved. Review of Systems Review of Systems: All systems reviewed & are unremarkable except as noted in HPI & below Physical Exam Physical Exam: General: No acute distress HEENT: Normocephalic atraumatic Neck: No significant lymphadenopathy, trachea midline, normal to visual inspection Cardiac: Regular rate and rhythm, normal S1, normal S2, I did not appreciated any significant murmurs rubs or gallops, I did not appreciate any significant pedal edema, No calf tenderness, capillary refill is less than 3 seconds Respiratory: Clear to auscultation bilaterally with symmetrical chest rise, I did not appreciate any significant wheezes, rales, rhonchi, no increased work of breathing GI: Normal bowel sounds, soft, nontender in all 4 quadrants, nondistended. Left-sided CVA tenderness MSK: No sensory or motor changes, moves all extremities without issue, extremities are warm and well-perfused Skin: [place], clean, dry, intact. Fading bruise on the left lower quadrant of her abdomen Neuro: Alert and oriented x4 Psych: Calm, cooperative, logical thought process Results & Data Results & Data ([facility]) Vital Signs (Past 12 Hours) Vital Signs Temp Pulse Pulse Resp BP BP Pulse Ox 04/27/21 07:27 36.8 C 75 16 95/62 L 98 04/27/21 05:48 36.7 C 90 18 108/70 98 04/27/21 05:02 95 H 14 94/49 L 98 04/27/21 04:30 82 19 04/27/21 04:00 73 15 04/27/21 03:30 73 15 04/27/21 03:12 70 14 04/27/21 02:30 73 16 109/64 04/27/21 02:00 73 21 95/64 L 04/27/21 01:30 74 18 105/71 95 04/27/21 01:00 72 18 119/80 99 04/27/21 00:30 75 16 112/62 98 04/27/21 00:00 71 15 90/47 L 97 04/26/21 23:30 79 18 118/70 98 04/26/21 23:00 75 18 122/68 99 04/26/21 22:30 87 118/69 99 04/26/21 22:04 98 H 20 130/77 97 04/26/21 21:30 94 H 20 148/77 H 97 04/26/21 21:17 100 H 20 154/79 H 97 Laboratory Results 04/27/21 04/27/21 04/27/21 Range/Units 12:28 12:25 12:23 WBC (4.8-10.8) K/uL RBC (4.2-5.4) M/uL Hgb (12.0-16.0) g/dL Hct (37-47) % MCV (80-100) fL MCH (25-34) pg MCHC (32-36) g/dL RDW Std Deviation (36.4-46.3) fL RDW Coeff of Mil (11.5-14.5) % Plt Count (130-400) K/uL MPV (7.4-10.4) fL Immature Gran % (Auto) % Neut % (Auto) % Lymph % (Auto) % Hunt % (Auto) % Eos % (Auto) % Baso % (Auto) % Neut # (Auto) (1.4-6.5) K/uL Lymph # (Auto) (1.2-3.4) K/uL Hunt # (Auto) (0.11-0.59) K/uL Eos # (Auto) (0-0.5) K/uL Baso # (Auto) (0-0.2) K/uL Immature Gran # (Auto) (0.00-0.02) K/uL ESR (0-20) mm/hr PT (9.0-12.0) Seconds INR (0.9-1.1) APTT (21.0-31.0) Seconds PTT Ratio D-Dimer (0-500) ug/L FEU Sodium (136-145) mmol/L Potassium (3.5-5.1) mmol/L Chloride (98-107) mmol/L Carbon Dioxide (21-32) mmol/L Anion Gap (3-11) BUN (7-18) mg/dl Creatinine (0.6-1.2) mg/dl Est Cr Clr Drug Dosing ml/min Est GFR ( Amer) ml/min Est GFR (Non-Af Amer) ml/min BUN/Creatinine Ratio (10-20) Glucose (70-99) mg/dl POC Glucose 295 H 280 H 328 H* (70-99) mg/dl Estimat Average Glucose mg/dl Hemoglobin A1c (4.5-5.6) % Calcium (8.5-10.1) mg/dl Phosphorus (2.5-4.9) mg/dl Magnesium (1.8-2.4) mg/dl Total Bilirubin (0.2-1) mg/dl AST (15-37) U/L ALT (12-78) U/L Alkaline Phosphatase (45-117) U/L Troponin I (0-0.045) ng/ml C-Reactive Protein (0-0.29) mg/dl Total Protein (6.4-8.2) gm/dl Albumin (3.4-5.0) gm/dl Globulin (2.5-4.0) gm/dl Albumin/Globulin Ratio (0.9-2) Lipase (73-393) U/L Beta-Hydroxybutyric Acd (0.2-2.81) mg/dl TSH (0.300-4.500) uIu/ml Urine Color Urine Appearance (Clear) Urine pH (4.5-7.5) Ur Specific [place] (1.000-1.030) Urine Protein (Negative) Urine Glucose (UA) (Negative) Urine Ketones (Negative) Urine Blood (Negative) Urine Nitrite (Negative) Urine Bilirubin (Negative) Urine Urobilinogen (Negative) Ur Leukocyte Esterase (Negative) Urine WBC (Auto) (0-5) /hpf Urine RBC (Auto) (0-4) /hpf U Hyaline Cast (Auto) (0-5) /lpf U Epithel Cells (Auto) (0-5) /lpf Urine Bacteria (Auto) (Negative) Urine Yeast (None Prsent) Urine Test (Negative) POC Ur Test (NEG) Stool H. pylori Ag Urine Opiates Screen (Neg) Ur Methadone, Qual (Neg) Urine Barbiturates (Neg) Ur Phencyclidine (PCP) (Neg) U Amphetamin/Meth Scrn (Neg) MDMA (Ecstasy) Screen (Neg) U Benzodiazepines Scrn (Neg) Ur Cocaine Metabolite (Neg) U Marijuana (THC) Screen (Neg) U Marijuana THC Carboxy Drug Screen Comment Anaplasma Smear A. phagocytophilum DNA Lyme Disease IgG Ab Lyme Disease IgM Ab COVID-19 Eval Order SARS-CoV-2 (PCR) (Negative) Giardia Antigen Monoscreen 04/27/21 04/27/21 04/27/21 Range/Units 11:05 11:05 08:32 WBC (4.8-10.8) K/uL RBC (4.2-5.4) M/uL Hgb (12.0-16.0) g/dL Hct (37-47) % MCV (80-100) fL MCH (25-34) pg MCHC (32-36) g/dL RDW Std Deviation (36.4-46.3) fL RDW Coeff of Mil (11.5-14.5) % Plt Count (130-400) K/uL MPV (7.4-10.4) fL Immature Gran % (Auto) % Neut % (Auto) % Lymph % (Auto) % Hunt % (Auto) % Eos % (Auto) % Baso % (Auto) % Neut # (Auto) (1.4-6.5) K/uL Lymph # (Auto) (1.2-3.4) K/uL Hunt # (Auto) (0.11-0.59) K/uL Eos # (Auto) (0-0.5) K/uL Baso # (Auto) (0-0.2) K/uL Immature Gran # (Auto) (0.00-0.02) K/uL ESR (0-20) mm/hr PT (9.0-12.0) Seconds INR (0.9-1.1) APTT (21.0-31.0) Seconds PTT Ratio D-Dimer (0-500) ug/L FEU Sodium (136-145) mmol/L Potassium (3.5-5.1) mmol/L Chloride (98-107) mmol/L Carbon Dioxide (21-32) mmol/L Anion Gap (3-11) BUN (7-18) mg/dl Creatinine (0.6-1.2) mg/dl Est Cr Clr Drug Dosing ml/min Est GFR ( Amer) ml/min Est GFR (Non-Af Amer) ml/min BUN/Creatinine Ratio (10-20) Glucose (70-99) mg/dl POC Glucose (70-99) mg/dl Estimat Average Glucose mg/dl Hemoglobin A1c (4.5-5.6) % Calcium (8.5-10.1) mg/dl Phosphorus 3.4 (2.5-4.9) mg/dl Magnesium (1.8-2.4) mg/dl Total Bilirubin (0.2-1) mg/dl AST (15-37) U/L ALT (12-78) U/L Alkaline Phosphatase (45-117) U/L Troponin I (0-0.045) ng/ml C-Reactive Protein (0-0.29) mg/dl Total Protein (6.4-8.2) gm/dl Albumin (3.4-5.0) gm/dl Globulin (2.5-4.0) gm/dl Albumin/Globulin Ratio (0.9-2) Lipase (73-393) U/L Beta-Hydroxybutyric Acd (0.2-2.81) mg/dl TSH (0.300-4.500) uIu/ml Urine Color Urine Appearance (Clear) Urine pH (4.5-7.5) Ur Specific [place] (1.000-1.030) Urine Protein (Negative) Urine Glucose (UA) (Negative) Urine Ketones (Negative) Urine Blood (Negative) Urine Nitrite (Negative) Urine Bilirubin (Negative) Urine Urobilinogen (Negative) Ur Leukocyte Esterase (Negative) Urine WBC (Auto) (0-5) /hpf Urine RBC (Auto) (0-4) /hpf U Hyaline Cast (Auto) (0-5) /lpf U Epithel Cells (Auto) (0-5) /lpf Urine Bacteria (Auto) (Negative) Urine Yeast (None Prsent) Urine Test (Negative) POC Ur Test (NEG) Stool H. pylori Ag Pending Urine Opiates Screen (Neg) Ur Methadone, Qual (Neg) Urine Barbiturates (Neg) Ur Phencyclidine (PCP) (Neg) U Amphetamin/Meth Scrn (Neg) MDMA (Ecstasy) Screen (Neg) U Benzodiazepines Scrn (Neg) Ur Cocaine Metabolite (Neg) U Marijuana (THC) Screen (Neg) U Marijuana THC Carboxy Drug Screen Comment Anaplasma Smear A. phagocytophilum DNA Lyme Disease IgG Ab Lyme Disease IgM Ab COVID-19 Eval Order SARS-CoV-2 (PCR) (Negative) Giardia Antigen Pending Monoscreen 04/27/21 04/27/21 04/27/21 Range/Units 08:32 08:32 08:32 WBC 9.25 (4.8-10.8) K/uL RBC 4.65 (4.2-5.4) M/uL Hgb 13.5 (12.0-16.0) g/dL Hct 39.4 (37-47) % MCV 84.7 (80-100) fL MCH 29.0 (25-34) pg MCHC 34.3 (32-36) g/dL RDW Std Deviation 40.5 (36.4-46.3) fL RDW Coeff of Mil 13.3 (11.5-14.5) % Plt Count 187 (130-400) K/uL MPV 13.0 H (7.4-10.4) fL Immature Gran % (Auto) % Neut % (Auto) % Lymph % (Auto) % Hunt % (Auto) % Eos % (Auto) % Baso % (Auto) % Neut # (Auto) (1.4-6.5) K/uL Lymph # (Auto) (1.2-3.4) K/uL Hunt # (Auto) (0.11-0.59) K/uL Eos # (Auto) (0-0.5) K/uL Baso # (Auto) (0-0.2) K/uL Immature Gran # (Auto) (0.00-0.02) K/uL ESR (0-20) mm/hr PT (9.0-12.0) Seconds INR (0.9-1.1) APTT (21.0-31.0) Seconds PTT Ratio D-Dimer (0-500) ug/L FEU Sodium 141 (136-145) mmol/L Potassium 3.9 D (3.5-5.1) mmol/L Chloride 110 H (98-107) mmol/L Carbon Dioxide 25 (21-32) mmol/L Anion Gap 5.0 (3-11) BUN 8 (7-18) mg/dl Creatinine 0.47 L (0.6-1.2) mg/dl Est Cr Clr Drug Dosing 208.1 ml/min Est GFR ( Amer) > 150.0 ml/min Est GFR (Non-Af Amer) 140.2 ml/min BUN/Creatinine Ratio 17.9 (10-20) Glucose 245 H (70-99) mg/dl POC Glucose (70-99) mg/dl Estimat Average Glucose 367 mg/dl Hemoglobin A1c 14.4 H (4.5-5.6) % Calcium 8.4 L (8.5-10.1) mg/dl Phosphorus (2.5-4.9) mg/dl Magnesium 1.8 (1.8-2.4) mg/dl Total Bilirubin (0.2-1) mg/dl AST (15-37) U/L ALT (12-78) U/L Alkaline Phosphatase (45-117) U/L Troponin I (0-0.045) ng/ml C-Reactive Protein (0-0.29) mg/dl Total Protein (6.4-8.2) gm/dl Albumin (3.4-5.0) gm/dl Globulin (2.5-4.0) gm/dl Albumin/Globulin Ratio (0.9-2) Lipase (73-393) U/L Beta-Hydroxybutyric Acd 6.08 H (0.2-2.81) mg/dl TSH (0.300-4.500) uIu/ml Urine Color Urine Appearance (Clear) Urine pH (4.5-7.5) Ur Specific [place] (1.000-1.030) Urine Protein (Negative) Urine Glucose (UA) (Negative) Urine Ketones (Negative) Urine Blood (Negative) Urine Nitrite (Negative) Urine Bilirubin (Negative) Urine Urobilinogen (Negative) Ur Leukocyte Esterase (Negative) Urine WBC (Auto) (0-5) /hpf Urine RBC (Auto) (0-4) /hpf U Hyaline Cast (Auto) (0-5) /lpf U Epithel Cells (Auto) (0-5) /lpf Urine Bacteria (Auto) (Negative) Urine Yeast (None Prsent) Urine Test (Negative) POC Ur Test (NEG) Stool H. pylori Ag Urine Opiates Screen (Neg) Ur Methadone, Qual (Neg) Urine Barbiturates (Neg) Ur Phencyclidine (PCP) (Neg) U Amphetamin/Meth Scrn (Neg) MDMA (Ecstasy) Screen (Neg) U Benzodiazepines Scrn (Neg) Ur Cocaine Metabolite (Neg) U Marijuana (THC) Screen (Neg) U Marijuana THC Carboxy Drug Screen Comment Anaplasma Smear A. phagocytophilum DNA Lyme Disease IgG Ab Lyme Disease IgM Ab COVID-19 Eval Order SARS-CoV-2 (PCR) (Negative) Giardia Antigen Monoscreen 04/27/21 04/27/21 04/27/21 Range/Units 08:14 06:49 01:42 WBC (4.8-10.8) K/uL RBC (4.2-5.4) M/uL Hgb (12.0-16.0) g/dL Hct (37-47) % MCV (80-100) fL MCH (25-34) pg MCHC (32-36) g/dL RDW Std Deviation (36.4-46.3) fL RDW Coeff of Mil (11.5-14.5) % Plt Count (130-400) K/uL MPV (7.4-10.4) fL Immature Gran % (Auto) % Neut % (Auto) % Lymph % (Auto) % Hunt % (Auto) % Eos % (Auto) % Baso % (Auto) % Neut # (Auto) (1.4-6.5) K/uL Lymph # (Auto) (1.2-3.4) K/uL Hunt # (Auto) (0.11-0.59) K/uL Eos # (Auto) (0-0.5) K/uL Baso # (Auto) (0-0.2) K/uL Immature Gran # (Auto) (0.00-0.02) K/uL ESR (0-20) mm/hr PT (9.0-12.0) Seconds INR (0.9-1.1) APTT (21.0-31.0) Seconds PTT Ratio D-Dimer (0-500) ug/L FEU Sodium (136-145) mmol/L Potassium (3.5-5.1) mmol/L Chloride (98-107) mmol/L Carbon Dioxide (21-32) mmol/L Anion Gap (3-11) BUN (7-18) mg/dl Creatinine (0.6-1.2) mg/dl Est Cr Clr Drug Dosing ml/min Est GFR ( Amer) ml/min Est GFR (Non-Af Amer) ml/min BUN/Creatinine Ratio (10-20) Glucose (70-99) mg/dl POC Glucose 219 H 215 H 118 H (70-99) mg/dl Estimat Average Glucose mg/dl Hemoglobin A1c (4.5-5.6) % Calcium (8.5-10.1) mg/dl Phosphorus (2.5-4.9) mg/dl Magnesium (1.8-2.4) mg/dl Total Bilirubin (0.2-1) mg/dl AST (15-37) U/L ALT (12-78) U/L Alkaline Phosphatase (45-117) U/L Troponin I (0-0.045) ng/ml C-Reactive Protein (0-0.29) mg/dl Total Protein (6.4-8.2) gm/dl Albumin (3.4-5.0) gm/dl Globulin (2.5-4.0) gm/dl Albumin/Globulin Ratio (0.9-2) Lipase (73-393) U/L Beta-Hydroxybutyric Acd (0.2-2.81) mg/dl TSH (0.300-4.500) uIu/ml Urine Color Urine Appearance (Clear) Urine pH (4.5-7.5) Ur Specific [place] (1.000-1.030) Urine Protein (Negative) Urine Glucose (UA) (Negative) Urine Ketones (Negative) Urine Blood (Negative) Urine Nitrite (Negative) Urine Bilirubin (Negative) Urine Urobilinogen (Negative) Ur Leukocyte Esterase (Negative) Urine WBC (Auto) (0-5) /hpf Urine RBC (Auto) (0-4) /hpf U Hyaline Cast (Auto) (0-5) /lpf U Epithel Cells (Auto) (0-5) /lpf Urine Bacteria (Auto) (Negative) Urine Yeast (None Prsent) Urine Test (Negative) POC Ur Test (NEG) Stool H. pylori Ag Urine Opiates Screen (Neg) Ur Methadone, Qual (Neg) Urine Barbiturates (Neg) Ur Phencyclidine (PCP) (Neg) U Amphetamin/Meth Scrn (Neg) MDMA (Ecstasy) Screen (Neg) U Benzodiazepines Scrn (Neg) Ur Cocaine Metabolite (Neg) U Marijuana (THC) Screen (Neg) U Marijuana THC Carboxy Drug Screen Comment Anaplasma Smear A. phagocytophilum DNA Lyme Disease IgG Ab Lyme Disease IgM Ab COVID-19 Eval Order SARS-CoV-2 (PCR) (Negative) Giardia Antigen Monoscreen 04/26/21 04/26/21 04/26/21 Range/Units 23:30 23:30 23:01 WBC (4.8-10.8) K/uL RBC (4.2-5.4) M/uL Hgb (12.0-16.0) g/dL Hct (37-47) % MCV (80-100) fL MCH (25-34) pg MCHC (32-36) g/dL RDW Std Deviation (36.4-46.3) fL RDW Coeff of Mil (11.5-14.5) % Plt Count (130-400) K/uL MPV (7.4-10.4) fL Immature Gran % (Auto) % Neut % (Auto) % Lymph % (Auto) % Hunt % (Auto) % Eos % (Auto) % Baso % (Auto) % Neut # (Auto) (1.4-6.5) K/uL Lymph # (Auto) (1.2-3.4) K/uL Hunt # (Auto) (0.11-0.59) K/uL Eos # (Auto) (0-0.5) K/uL Baso # (Auto) (0-0.2) K/uL Immature Gran # (Auto) (0.00-0.02) K/uL ESR (0-20) mm/hr PT (9.0-12.0) Seconds INR (0.9-1.1) APTT (21.0-31.0) Seconds PTT Ratio D-Dimer (0-500) ug/L FEU Sodium (136-145) mmol/L Potassium (3.5-5.1) mmol/L Chloride (98-107) mmol/L Carbon Dioxide (21-32) mmol/L Anion Gap (3-11) BUN (7-18) mg/dl Creatinine (0.6-1.2) mg/dl Est Cr Clr Drug Dosing ml/min Est GFR ( Amer) ml/min Est GFR (Non-Af Amer) ml/min BUN/Creatinine Ratio (10-20) Glucose (70-99) mg/dl POC Glucose 144 H (70-99) mg/dl Estimat Average Glucose mg/dl Hemoglobin A1c (4.5-5.6) % Calcium (8.5-10.1) mg/dl Phosphorus (2.5-4.9) mg/dl Magnesium (1.8-2.4) mg/dl Total Bilirubin (0.2-1) mg/dl AST (15-37) U/L ALT (12-78) U/L Alkaline Phosphatase (45-117) U/L Troponin I (0-0.045) ng/ml C-Reactive Protein (0-0.29) mg/dl Total Protein (6.4-8.2) gm/dl Albumin (3.4-5.0) gm/dl Globulin (2.5-4.0) gm/dl Albumin/Globulin Ratio (0.9-2) Lipase (73-393) U/L Beta-Hydroxybutyric Acd (0.2-2.81) mg/dl TSH (0.300-4.500) uIu/ml Urine Color Urine Appearance (Clear) Urine pH (4.5-7.5) Ur Specific [place] (1.000-1.030) Urine Protein (Negative) Urine Glucose (UA) (Negative) Urine Ketones (Negative) Urine Blood (Negative) Urine Nitrite (Negative) Urine Bilirubin (Negative) Urine Urobilinogen (Negative) Ur Leukocyte Esterase (Negative) Urine WBC (Auto) (0-5) /hpf Urine RBC (Auto) (0-4) /hpf U Hyaline Cast (Auto) (0-5) /lpf U Epithel Cells (Auto) (0-5) /lpf Urine Bacteria (Auto) (Negative) Urine Yeast (None Prsent) Urine Test (Negative) POC Ur Test (NEG) Stool H. pylori Ag Urine Opiates Screen (Neg) Ur Methadone, Qual (Neg) Urine Barbiturates (Neg) Ur Phencyclidine (PCP) (Neg) U Amphetamin/Meth Scrn (Neg) MDMA (Ecstasy) Screen (Neg) U Benzodiazepines Scrn (Neg) Ur Cocaine Metabolite (Neg) U Marijuana (THC) Screen (Neg) U Marijuana THC Carboxy Drug Screen Comment Anaplasma Smear A. phagocytophilum DNA Lyme Disease IgG Ab Lyme Disease IgM Ab COVID-19 Eval Order Covid19 at [facility] SARS-CoV-2 (PCR) NEGATIVE (Negative) Giardia Antigen Monoscreen 04/26/21 04/26/21 04/26/21 Range/Units 22:20 22:20 22:20 WBC (4.8-10.8) K/uL RBC (4.2-5.4) M/uL Hgb (12.0-16.0) g/dL Hct (37-47) % MCV (80-100) fL MCH (25-34) pg MCHC (32-36) g/dL RDW Std Deviation (36.4-46.3) fL RDW Coeff of Mil (11.5-14.5) % Plt Count (130-400) K/uL MPV (7.4-10.4) fL Immature Gran % (Auto) % Neut % (Auto) % Lymph % (Auto) % Hunt % (Auto) % Eos % (Auto) % Baso % (Auto) % Neut # (Auto) (1.4-6.5) K/uL Lymph # (Auto) (1.2-3.4) K/uL Hunt # (Auto) (0.11-0.59) K/uL Eos # (Auto) (0-0.5) K/uL Baso # (Auto) (0-0.2) K/uL Immature Gran # (Auto) (0.00-0.02) K/uL ESR (0-20) mm/hr PT (9.0-12.0) Seconds INR (0.9-1.1) APTT (21.0-31.0) Seconds PTT Ratio D-Dimer (0-500) ug/L FEU Sodium (136-145) mmol/L Potassium (3.5-5.1) mmol/L Chloride (98-107) mmol/L Carbon Dioxide (21-32) mmol/L Anion Gap (3-11) BUN (7-18) mg/dl Creatinine (0.6-1.2) mg/dl Est Cr Clr Drug Dosing ml/min Est GFR ( Amer) ml/min Est GFR (Non-Af Amer) ml/min BUN/Creatinine Ratio (10-20) Glucose (70-99) mg/dl POC Glucose (70-99) mg/dl Estimat Average Glucose mg/dl Hemoglobin A1c (4.5-5.6) % Calcium (8.5-10.1) mg/dl Phosphorus (2.5-4.9) mg/dl Magnesium (1.8-2.4) mg/dl Total Bilirubin (0.2-1) mg/dl AST (15-37) U/L ALT (12-78) U/L Alkaline Phosphatase (45-117) U/L Troponin I (0-0.045) ng/ml C-Reactive Protein (0-0.29) mg/dl Total Protein (6.4-8.2) gm/dl Albumin (3.4-5.0) gm/dl Globulin (2.5-4.0) gm/dl Albumin/Globulin Ratio (0.9-2) Lipase (73-393) U/L Beta-Hydroxybutyric Acd (0.2-2.81) mg/dl TSH (0.300-4.500) uIu/ml Urine Color Urine Appearance (Clear) Urine pH (4.5-7.5) Ur Specific [place] (1.000-1.030) Urine Protein (Negative) Urine Glucose (UA) (Negative) Urine Ketones (Negative) Urine Blood (Negative) Urine Nitrite (Negative) Urine Bilirubin (Negative) Urine Urobilinogen (Negative) Ur Leukocyte Esterase (Negative) Urine WBC (Auto) (0-5) /hpf Urine RBC (Auto) (0-4) /hpf U Hyaline Cast (Auto) (0-5) /lpf U Epithel Cells (Auto) (0-5) /lpf Urine Bacteria (Auto) (Negative) Urine Yeast (None Prsent) Urine Test (Negative) POC Ur Test NEG (NEG) Stool H. pylori Ag Urine Opiates Screen Neg (Neg) Ur Methadone, Qual Neg (Neg) Urine Barbiturates Neg (Neg) Ur Phencyclidine (PCP) Neg (Neg) U Amphetamin/Meth Scrn Neg (Neg) MDMA (Ecstasy) Screen Neg (Neg) U Benzodiazepines Scrn Neg (Neg) Ur Cocaine Metabolite Neg (Neg) U Marijuana (THC) Screen Pos H (Neg) U Marijuana THC Carboxy Pending Drug Screen Comment Pending Anaplasma Smear A. phagocytophilum DNA Lyme Disease IgG Ab Lyme Disease IgM Ab COVID-19 Eval Order SARS-CoV-2 (PCR) (Negative) Giardia Antigen Monoscreen 04/26/21 04/26/21 04/26/21 Range/Units 22:06 22:00 22:00 WBC (4.8-10.8) K/uL RBC (4.2-5.4) M/uL Hgb (12.0-16.0) g/dL Hct (37-47) % MCV (80-100) fL MCH (25-34) pg MCHC (32-36) g/dL RDW Std Deviation (36.4-46.3) fL RDW Coeff of Mil (11.5-14.5) % Plt Count (130-400) K/uL MPV (7.4-10.4) fL Immature Gran % (Auto) % Neut % (Auto) % Lymph % (Auto) % Hunt % (Auto) % Eos % (Auto) % Baso % (Auto) % Neut # (Auto) (1.4-6.5) K/uL Lymph # (Auto) (1.2-3.4) K/uL Hunt # (Auto) (0.11-0.59) K/uL Eos # (Auto) (0-0.5) K/uL Baso # (Auto) (0-0.2) K/uL Immature Gran # (Auto) (0.00-0.02) K/uL ESR (0-20) mm/hr PT (9.0-12.0) Seconds INR (0.9-1.1) APTT (21.0-31.0) Seconds PTT Ratio D-Dimer (0-500) ug/L FEU Sodium (136-145) mmol/L Potassium (3.5-5.1) mmol/L Chloride (98-107) mmol/L Carbon Dioxide (21-32) mmol/L Anion Gap (3-11) BUN (7-18) mg/dl Creatinine (0.6-1.2) mg/dl Est Cr Clr Drug Dosing ml/min Est GFR ( Amer) ml/min Est GFR (Non-Af Amer) ml/min BUN/Creatinine Ratio (10-20) Glucose (70-99) mg/dl POC Glucose 102 H (70-99) mg/dl Estimat Average Glucose mg/dl Hemoglobin A1c (4.5-5.6) % Calcium (8.5-10.1) mg/dl Phosphorus (2.5-4.9) mg/dl Magnesium (1.8-2.4) mg/dl Total Bilirubin (0.2-1) mg/dl AST (15-37) U/L ALT (12-78) U/L Alkaline Phosphatase (45-117) U/L Troponin I (0-0.045) ng/ml C-Reactive Protein (0-0.29) mg/dl Total Protein (6.4-8.2) gm/dl Albumin (3.4-5.0) gm/dl Globulin (2.5-4.0) gm/dl Albumin/Globulin Ratio (0.9-2) Lipase (73-393) U/L Beta-Hydroxybutyric Acd (0.2-2.81) mg/dl TSH (0.300-4.500) uIu/ml Urine Color Yellow Urine Appearance Cloudy A (Clear) Urine pH 5.0 (4.5-7.5) Ur Specific [place] 1.030 (1.000-1.030) Urine Protein 1+ H (Negative) Urine Glucose (UA) 3+ H (Negative) Urine Ketones Trace H (Negative) Urine Blood 3+ H (Negative) Urine Nitrite Negative (Negative) Urine Bilirubin Negative (Negative) Urine Urobilinogen Negative (Negative) Ur Leukocyte Esterase 1+ H (Negative) Urine WBC (Auto) >30 H (0-5) /hpf Urine RBC (Auto) 10-30 H (0-4) /hpf U Hyaline Cast (Auto) 0 (0-5) /lpf U Epithel Cells (Auto) 10-20 H (0-5) /lpf Urine Bacteria (Auto) 3+ H (Negative) Urine Yeast Budding A (None Prsent) Urine Test Negative (Negative) POC Ur Test (NEG) Stool H. pylori Ag Urine Opiates Screen (Neg) Ur Methadone, Qual (Neg) Urine Barbiturates (Neg) Ur Phencyclidine (PCP) (Neg) U Amphetamin/Meth Scrn (Neg) MDMA (Ecstasy) Screen (Neg) U Benzodiazepines Scrn (Neg) Ur Cocaine Metabolite (Neg) U Marijuana (THC) Screen (Neg) U Marijuana THC Carboxy Drug Screen Comment Anaplasma Smear A. phagocytophilum DNA Lyme Disease IgG Ab Lyme Disease IgM Ab COVID-19 Eval Order SARS-CoV-2 (PCR) (Negative) Giardia Antigen Monoscreen 04/26/21 04/26/21 04/26/21 Range/Units 21:41 21:28 21:19 WBC (4.8-10.8) K/uL RBC (4.2-5.4) M/uL Hgb (12.0-16.0) g/dL Hct (37-47) % MCV (80-100) fL MCH (25-34) pg MCHC (32-36) g/dL RDW Std Deviation (36.4-46.3) fL RDW Coeff of Mil (11.5-14.5) % Plt Count (130-400) K/uL MPV (7.4-10.4) fL Immature Gran % (Auto) % Neut % (Auto) % Lymph % (Auto) % Hunt % (Auto) % Eos % (Auto) % Baso % (Auto) % Neut # (Auto) (1.4-6.5) K/uL Lymph # (Auto) (1.2-3.4) K/uL Hunt # (Auto) (0.11-0.59) K/uL Eos # (Auto) (0-0.5) K/uL Baso # (Auto) (0-0.2) K/uL Immature Gran # (Auto) (0.00-0.02) K/uL ESR (0-20) mm/hr PT (9.0-12.0) Seconds INR (0.9-1.1) APTT (21.0-31.0) Seconds PTT Ratio D-Dimer (0-500) ug/L FEU Sodium (136-145) mmol/L Potassium (3.5-5.1) mmol/L Chloride (98-107) mmol/L Carbon Dioxide (21-32) mmol/L Anion Gap (3-11) BUN (7-18) mg/dl Creatinine (0.6-1.2) mg/dl Est Cr Clr Drug Dosing ml/min Est GFR ( Amer) ml/min Est GFR (Non-Af Amer) ml/min BUN/Creatinine Ratio (10-20) Glucose (70-99) mg/dl POC Glucose 132 H 26 L* 27 L* (70-99) mg/dl Estimat Average Glucose mg/dl Hemoglobin A1c (4.5-5.6) % Calcium (8.5-10.1) mg/dl Phosphorus (2.5-4.9) mg/dl Magnesium (1.8-2.4) mg/dl Total Bilirubin (0.2-1) mg/dl AST (15-37) U/L ALT (12-78) U/L Alkaline Phosphatase (45-117) U/L Troponin I (0-0.045) ng/ml C-Reactive Protein (0-0.29) mg/dl Total Protein (6.4-8.2) gm/dl Albumin (3.4-5.0) gm/dl Globulin (2.5-4.0) gm/dl Albumin/Globulin Ratio (0.9-2) Lipase (73-393) U/L Beta-Hydroxybutyric Acd (0.2-2.81) mg/dl TSH (0.300-4.500) uIu/ml Urine Color Urine Appearance (Clear) Urine pH (4.5-7.5) Ur Specific [place] (1.000-1.030) Urine Protein (Negative) Urine Glucose (UA) (Negative) Urine Ketones (Negative) Urine Blood (Negative) Urine Nitrite (Negative) Urine Bilirubin (Negative) Urine Urobilinogen (Negative) Ur Leukocyte Esterase (Negative) Urine WBC (Auto) (0-5) /hpf Urine RBC (Auto) (0-4) /hpf U Hyaline Cast (Auto) (0-5) /lpf U Epithel Cells (Auto) (0-5) /lpf Urine Bacteria (Auto) (Negative) Urine Yeast (None Prsent) Urine Test (Negative) POC Ur Test (NEG) Stool H. pylori Ag Urine Opiates Screen (Neg) Ur Methadone, Qual (Neg) Urine Barbiturates (Neg) Ur Phencyclidine (PCP) (Neg) U Amphetamin/Meth Scrn (Neg) MDMA (Ecstasy) Screen (Neg) U Benzodiazepines Scrn (Neg) Ur Cocaine Metabolite (Neg) U Marijuana (THC) Screen (Neg) U Marijuana THC Carboxy Drug Screen Comment Anaplasma Smear A. phagocytophilum DNA Lyme Disease IgG Ab Lyme Disease IgM Ab COVID-19 Eval Order SARS-CoV-2 (PCR) (Negative) Giardia Antigen Monoscreen 04/26/21 04/26/21 04/26/21 Range/Units 20:50 20:50 19:40 WBC (4.8-10.8) K/uL RBC (4.2-5.4) M/uL Hgb (12.0-16.0) g/dL Hct (37-47) % MCV (80-100) fL MCH (25-34) pg MCHC (32-36) g/dL RDW Std Deviation (36.4-46.3) fL RDW Coeff of Mil (11.5-14.5) % Plt Count (130-400) K/uL MPV (7.4-10.4) fL Immature Gran % (Auto) % Neut % (Auto) % Lymph % (Auto) % Hunt % (Auto) % Eos % (Auto) % Baso % (Auto) % Neut # (Auto) (1.4-6.5) K/uL Lymph # (Auto) (1.2-3.4) K/uL Hunt # (Auto) (0.11-0.59) K/uL Eos # (Auto) (0-0.5) K/uL Baso # (Auto) (0-0.2) K/uL Immature Gran # (Auto) (0.00-0.02) K/uL ESR (0-20) mm/hr PT (9.0-12.0) Seconds INR (0.9-1.1) APTT (21.0-31.0) Seconds PTT Ratio D-Dimer (0-500) ug/L FEU Sodium (136-145) mmol/L Potassium 2.5 L* (3.5-5.1) mmol/L Chloride (98-107) mmol/L Carbon Dioxide (21-32) mmol/L Anion Gap (3-11) BUN (7-18) mg/dl Creatinine (0.6-1.2) mg/dl Est Cr Clr Drug Dosing ml/min Est GFR ( Amer) ml/min Est GFR (Non-Af Amer) ml/min BUN/Creatinine Ratio (10-20) Glucose (70-99) mg/dl POC Glucose (70-99) mg/dl Estimat Average Glucose mg/dl Hemoglobin A1c (4.5-5.6) % Calcium (8.5-10.1) mg/dl Phosphorus (2.5-4.9) mg/dl Magnesium 1.6 L (1.8-2.4) mg/dl Total Bilirubin (0.2-1) mg/dl AST 16 (15-37) U/L ALT (12-78) U/L Alkaline Phosphatase (45-117) U/L Troponin I (0-0.045) ng/ml C-Reactive Protein (0-0.29) mg/dl Total Protein (6.4-8.2) gm/dl Albumin (3.4-5.0) gm/dl Globulin (2.5-4.0) gm/dl Albumin/Globulin Ratio (0.9-2) Lipase (73-393) U/L Beta-Hydroxybutyric Acd (0.2-2.81) mg/dl TSH (0.300-4.500) uIu/ml Urine Color Urine Appearance (Clear) Urine pH (4.5-7.5) Ur Specific [place] (1.000-1.030) Urine Protein (Negative) Urine Glucose (UA) (Negative) Urine Ketones (Negative) Urine Blood (Negative) Urine Nitrite (Negative) Urine Bilirubin (Negative) Urine Urobilinogen (Negative) Ur Leukocyte Esterase (Negative) Urine WBC (Auto) (0-5) /hpf Urine RBC (Auto) (0-4) /hpf U Hyaline Cast (Auto) (0-5) /lpf U Epithel Cells (Auto) (0-5) /lpf Urine Bacteria (Auto) (Negative) Urine Yeast (None Prsent) Urine Test (Negative) POC Ur Test (NEG) Stool H. pylori Ag Urine Opiates Screen (Neg) Ur Methadone, Qual (Neg) Urine Barbiturates (Neg) Ur Phencyclidine (PCP) (Neg) U Amphetamin/Meth Scrn (Neg) MDMA (Ecstasy) Screen (Neg) U Benzodiazepines Scrn (Neg) Ur Cocaine Metabolite (Neg) U Marijuana (THC) Screen (Neg) U Marijuana THC Carboxy Drug Screen Comment Anaplasma Smear A. phagocytophilum DNA Lyme Disease IgG Ab Negative Cancelled Lyme Disease IgM Ab Negative Cancelled COVID-19 Eval Order SARS-CoV-2 (PCR) (Negative) Giardia Antigen Monoscreen Negative Cancelled 04/26/21 04/26/21 04/26/21 Range/Units 19:40 19:40 19:40 WBC (4.8-10.8) K/uL RBC (4.2-5.4) M/uL Hgb (12.0-16.0) g/dL Hct (37-47) % MCV (80-100) fL MCH (25-34) pg MCHC (32-36) g/dL RDW Std Deviation (36.4-46.3) fL RDW Coeff of Mil (11.5-14.5) % Plt Count (130-400) K/uL MPV (7.4-10.4) fL Immature Gran % (Auto) % Neut % (Auto) % Lymph % (Auto) % Hunt % (Auto) % Eos % (Auto) % Baso % (Auto) % Neut # (Auto) (1.4-6.5) K/uL Lymph # (Auto) (1.2-3.4) K/uL Hunt # (Auto) (0.11-0.59) K/uL Eos # (Auto) (0-0.5) K/uL Baso # (Auto) (0-0.2) K/uL Immature Gran # (Auto) (0.00-0.02) K/uL ESR 18 (0-20) mm/hr PT 10.1 (9.0-12.0) Seconds INR 1.0 (0.9-1.1) APTT 23.9 (21.0-31.0) Seconds PTT Ratio 0.9 D-Dimer 480 (0-500) ug/L FEU Sodium 139 (136-145) mmol/L Potassium (3.5-5.1) mmol/L Chloride 108 H (98-107) mmol/L Carbon Dioxide 24 (21-32) mmol/L Anion Gap 6.0 (3-11) BUN 9 (7-18) mg/dl Creatinine 0.58 L (0.6-1.2) mg/dl Est Cr Clr Drug Dosing 169.7 ml/min Est GFR ( Amer) > 150.0 ml/min Est GFR (Non-Af Amer) 130.8 ml/min BUN/Creatinine Ratio 15.0 (10-20) Glucose 106 H (70-99) mg/dl POC Glucose (70-99) mg/dl Estimat Average Glucose mg/dl Hemoglobin A1c (4.5-5.6) % Calcium 9.3 (8.5-10.1) mg/dl Phosphorus (2.5-4.9) mg/dl Magnesium (1.8-2.4) mg/dl Total Bilirubin 0.4 (0.2-1) mg/dl AST (15-37) U/L ALT 39 (12-78) U/L Alkaline Phosphatase 74 (45-117) U/L Troponin I < 0.015 (0-0.045) ng/ml C-Reactive Protein 0.67 H (0-0.29) mg/dl Total Protein 7.6 (6.4-8.2) gm/dl Albumin 3.4 (3.4-5.0) gm/dl Globulin 4.2 H (2.5-4.0) gm/dl Albumin/Globulin Ratio 0.8 L (0.9-2) Lipase 137 (73-393) U/L Beta-Hydroxybutyric Acd (0.2-2.81) mg/dl TSH 0.871 (0.300-4.500) uIu/ml Urine Color Urine Appearance (Clear) Urine pH (4.5-7.5) Ur Specific [place] (1.000-1.030) Urine Protein (Negative) Urine Glucose (UA) (Negative) Urine Ketones (Negative) Urine Blood (Negative) Urine Nitrite (Negative) Urine Bilirubin (Negative) Urine Urobilinogen (Negative) Ur Leukocyte Esterase (Negative) Urine WBC (Auto) (0-5) /hpf Urine RBC (Auto) (0-4) /hpf U Hyaline Cast (Auto) (0-5) /lpf U Epithel Cells (Auto) (0-5) /lpf Urine Bacteria (Auto) (Negative) Urine Yeast (None Prsent) Urine Test (Negative) POC Ur Test (NEG) Stool H. pylori Ag Urine Opiates Screen (Neg) Ur Methadone, Qual (Neg) Urine Barbiturates (Neg) Ur Phencyclidine (PCP) (Neg) U Amphetamin/Meth Scrn (Neg) MDMA (Ecstasy) Screen (Neg) U Benzodiazepines Scrn (Neg) Ur Cocaine Metabolite (Neg) U Marijuana (THC) Screen (Neg) U Marijuana THC Carboxy Drug Screen Comment Anaplasma Smear A. phagocytophilum DNA Lyme Disease IgG Ab Lyme Disease IgM Ab COVID-19 Eval Order SARS-CoV-2 (PCR) (Negative) Giardia Antigen Monoscreen 04/26/21 04/26/21 Range/Units 19:40 19:40 WBC 9.38 (4.8-10.8) K/uL RBC 5.14 (4.2-5.4) M/uL Hgb 14.8 (12.0-16.0) g/dL Hct 42.3 (37-47) % MCV 82.3 (80-100) fL MCH 28.8 (25-34) pg MCHC 35.0 (32-36) g/dL RDW Std Deviation 38.7 (36.4-46.3) fL RDW Coeff of Mil 12.8 (11.5-14.5) % Plt Count 187 (130-400) K/uL MPV 13.2 H (7.4-10.4) fL Immature Gran % (Auto) 0.2 % Neut % (Auto) 55.0 % Lymph % (Auto) 37.6 % Hunt % (Auto) 5.9 % Eos % (Auto) 1.1 % Baso % (Auto) 0.2 % Neut # (Auto) 5.16 (1.4-6.5) K/uL Lymph # (Auto) 3.53 H (1.2-3.4) K/uL Hunt # (Auto) 0.55 (0.11-0.59) K/uL Eos # (Auto) 0.10 (0-0.5) K/uL Baso # (Auto) 0.02 (0-0.2) K/uL Immature Gran # (Auto) 0.02 (0.00-0.02) K/uL ESR (0-20) mm/hr PT (9.0-12.0) Seconds INR (0.9-1.1) APTT (21.0-31.0) Seconds PTT Ratio D-Dimer (0-500) ug/L FEU Sodium (136-145) mmol/L Potassium (3.5-5.1) mmol/L Chloride (98-107) mmol/L Carbon Dioxide (21-32) mmol/L Anion Gap (3-11) BUN (7-18) mg/dl Creatinine (0.6-1.2) mg/dl Est Cr Clr Drug Dosing ml/min Est GFR ( Amer) ml/min Est GFR (Non-Af Amer) ml/min BUN/Creatinine Ratio (10-20) Glucose (70-99) mg/dl POC Glucose (70-99) mg/dl Estimat Average Glucose mg/dl Hemoglobin A1c (4.5-5.6) % Calcium (8.5-10.1) mg/dl Phosphorus (2.5-4.9) mg/dl Magnesium (1.8-2.4) mg/dl Total Bilirubin (0.2-1) mg/dl AST (15-37) U/L ALT (12-78) U/L Alkaline Phosphatase (45-117) U/L Troponin I (0-0.045) ng/ml C-Reactive Protein (0-0.29) mg/dl Total Protein (6.4-8.2) gm/dl Albumin (3.4-5.0) gm/dl Globulin (2.5-4.0) gm/dl Albumin/Globulin Ratio (0.9-2) Lipase (73-393) U/L Beta-Hydroxybutyric Acd (0.2-2.81) mg/dl TSH (0.300-4.500) uIu/ml Urine Color Urine Appearance (Clear) Urine pH (4.5-7.5) Ur Specific [place] (1.000-1.030) Urine Protein (Negative) Urine Glucose (UA) (Negative) Urine Ketones (Negative) Urine Blood (Negative) Urine Nitrite (Negative) Urine Bilirubin (Negative) Urine Urobilinogen (Negative) Ur Leukocyte Esterase (Negative) Urine WBC (Auto) (0-5) /hpf Urine RBC (Auto) (0-4) /hpf U Hyaline Cast (Auto) (0-5) /lpf U Epithel Cells (Auto) (0-5) /lpf Urine Bacteria (Auto) (Negative) Urine Yeast (None Prsent) Urine Test (Negative) POC Ur Test (NEG) Stool H. pylori Ag Urine Opiates Screen (Neg) Ur Methadone, Qual (Neg) Urine Barbiturates (Neg) Ur Phencyclidine (PCP) (Neg) U Amphetamin/Meth Scrn (Neg) MDMA (Ecstasy) Screen (Neg) U Benzodiazepines Scrn (Neg) Ur Cocaine Metabolite (Neg) U Marijuana (THC) Screen (Neg) U Marijuana THC Carboxy Drug Screen Comment Anaplasma Smear See Comment A. phagocytophilum DNA Pending Lyme Disease IgG Ab Lyme Disease IgM Ab COVID-19 Eval Order SARS-CoV-2 (PCR) (Negative) Giardia Antigen Monoscreen Diagnostic Findings KUB X-Ray 04/26/21 19:19 KUB CLINICAL HISTORY: Left flank pain. COMPARISON STUDY: CT of the abdomen pelvis May 08, 2020. FINDINGS: The bowel gas pattern is normal. Amount of stool is within normal limits. No urinary calculi are identified. IMPRESSION: Unremarkable KUB. ACT 112: Negative or not required by law. Electronically signed by: Travis Hogan M.D. 04/26/2021 8:41 PM Abdomen/Pelvis CT 04/27/21 01:[address] WITHOUT CONTRAST CT DOSE: 417.39 mGy.cm HISTORY: Left flank pain. Pyelonephritis. TECHNIQUE: Multiaxial CT images of the abdomen and pelvis were performed without contrast. A dose lowering technique was utilized adhering to the principles of ALARA. COMPARISON STUDY: Abdomen and pelvis CT 05/08/2020. FINDINGS: Stable 6 cm subpleural nodular density within the left lower lobe on image 3. This is likely benign given the patient's age. No pneumoperitoneum. No pneumatosis. No fractures within the visualized osseous structures. The unenhanced liver, gallbladder, pancreas, spleen, adrenal glands, and kidneys are unremarkable. No renal stones or hydronephrosis. There is mild bladder wall thickening. The uterus and bilateral adnexa are unremarkable. No pelvic free fluid. Fluid-filled nondilated large and small bowel. Normal appendix. No bowel wall thickening or obstruction. However, there is suboptimal evaluation for bowel pathology due to the lack of intravenous and oral contrast. IMPRESSION: 1. Mild bladder wall thickening. This may represent a cystitis. Recommend correlation with urinalysis. 2. No renal or ureteral stones. No hydronephrosis. 3. Fluid-filled large and small bowel suggesting a gastroenteritis/diarrheal illness. 4. Normal appendix. ACT 112: Negative or not required by law. Electronically signed by: Edison Marmolejo M.D. 04/27/2021 7:49 AM PG Care Time/CCT Total # of Minutes Spent Total Time Spent with Patient: Total time spent is greater than 50% in coordination of care (as documented) at patient's floor/unit and/or counseling patient: Coding Level of Care Code None Diagnoses Hypokalemia E87.6 Diabetes E11.9 UTI (urinary tract infection) N39.0 Frequent loose stools R19.7 Abdominal pain R10.9 Tick bite W57.XXXA DVT prophylaxis Z29.9 Gastroparesis K31.84
[2021-04-27 09:21] LABS: BUN Creatinine Ratio 17.9 (10-20); Beta-Hydroxybutyrate 6.08 mg/dl (0.2-2.81); Blood Urea Nitrogen 8 mg/dl (7-18); Calcium 8.4 mg/dl (8.5-10.1); Carbon Dioxide 25 mmol/L (21-32); Chloride 110 mmol/L (98-107); Creatinine Clr Calc Pharmacy 208.1 ml/min; Est GFR (African American) > 150.0 ml/min; Est GFR (Non-African American) 140.2 ml/min; Glucose 245 mg/dl (70-99); Magnesium 1.8 mg/dl (1.8-2.4); Potassium 3.9 mmol/L (3.5-5.1); Sodium 141 mmol/L (136-145)
[2021-04-27 09:55] LABS: Estimated Average Glucose 367 mg/dl; Hemoglobin A1C 14.4 % (4.5-5.6)
[2021-04-27] MEDS: NSS + 20MEQ KCL 20 MEQ/1,000 ML BAG IV SCH ×2 (09:56→21:23)
[2021-04-27] MEDS: MAGNESIUM SULFATE / D5W 1 GM/100 ML BAG IV SCH ×2 (09:57→12:46)
--- NOTE | 2021-04-27 10:32 | Electrocardiogram Report ---
Test Reason : Blood Pressure : / mmHG Vent. Rate : 102 BPM Atrial Rate : 102 BPM P-R Int : 140 ms QRS Dur : 096 ms QT Int : 354 ms P-R-T Axes : 038 049 -52 degrees QTc Int : 461 ms Sinus tachycardia Nonspecific ST and T wave abnormality Abnormal ECG No previous ECGs available Confirmed by Yimi Wheat ([id number]) on 04/27/2021 10:32:12 AM Referred By: REFERRED SELF Confirmed By:Yimi Wheat
[2021-04-27] MEDS ORDERED: CETIRIZINE HCL 10 MG TABLET PO ONE (13:45)
--- NOTE | 2021-04-27 13:49 | Pharmacy Report ---
Pharmacy Glycemic Short Note 2 - Date of Service April 27, 2021 - Glycemic Short BSG Results (Last 24 hours): 04/26/21 04/26/21 04/26/21 19:40 21:19 21:28 Glucose 106 H POC Glucose 27 L* 26 L* 04/26/21 04/26/21 04/26/21 21:41 22:06 23:01 Glucose POC Glucose 132 H 102 H 144 H 04/27/21 04/27/21 04/27/21 01:42 06:49 08:14 Glucose POC Glucose 118 H 215 H 219 H 04/27/21 04/27/21 04/27/21 08:32 12:23 12:25 Glucose 245 H POC Glucose 328 H* 280 H 04/27/21 12:28 Glucose POC Glucose 295 H OUTPATIENT ANTIDIABETIC REGIMEN: * Humalog 8 units TID with meals ASSESSMENT: * 21 year old female, PMH of seasonal allergies, diabetes, and gastroparesis, admitted with UTI on IV antibiotics. * Uncontrolled DM, 14.4% d/t noncompliance and insurance issues. Spoke w/ patient, she is now on her parent's insurance, but needs a new doctor. * She was on Basaglar at one time but then couldn't get it because of insurance issues. * Discussed Relion insulin from [employer] and using vials and syringes vs pens, patient states she prefers the pens * Started patient on bolus insulin with regular insulin, d/t gastroparesis, blood sugars elevated today, will tighten CF/CR, add basal, and titrate to goal blood sugar * CDE consult ordered PLAN FOR INPATIENT GLYCEMIC CONTROL: * Basal insulin * 10 units BID, start now, hold for BSG < 140mg/dl * Bolus insulin * NovoLog per scale ACHS or Q6hrs while NPO * Goal Range: Low 110 mg/dL - High 140 mg/dL * Correction Factor: 30 mg/dL/unit * Nutritional / Prandial insulin per carb ratio of 1 unit per 10 grams CHO consumed PLAN FOR DISCHARGE: * to be determined based on insurance options and need for PCP * Could possibly use Relion 70/30 pens??
[2021-04-27] MEDS ORDERED: INSULIN GLARGINE SOLOSTAR 100 UNITS/ML 3 ML PEN SC SCH (14:00)
[2021-04-27] MEDS: cefTRIAXone SODIUM 2,000 MG in DEXTROSE 5% 50 ML IV SCH (15:38)
[2021-04-27] MEDS ORDERED: LANTUS PER UNIT CHARGE SQ STA (16:36)
[2021-04-27] MEDS ORDERED: INSULIN PROTOCOL GOAL RANGE ONE (16:46)
[2021-04-27] MEDS ORDERED: MODERATE STRESS LEVEL ONE (16:46)
[2021-04-27] MEDS ORDERED: DC ALL PREVIOUSLY ORDERED DIABETES MEDS ONE (16:46)
[2021-04-27] MEDS ORDERED: INSULIN HUMAN REGULAR IV BOLUS 2 UNITS in SYRINGE 0 ML IV ONE (17:00)
[2021-04-27] MEDS: INSULIN REGULAR 250 UNITS in SODIUM CHLORIDE 0.9% 247.5 ML IV SCH (17:31)
[2021-04-27] MEDS: INSULIN ASPART 100 UNITS/ML 3 ML PEN SC SCH ×2 (18:37→22:43)
[2021-04-27] MEDS: CALCIUM CARBONATE 500 MG CHEWABLE TAB PO SCH (19:46)
[2021-04-27] MEDS: PANTOprazole 40 MG TAB PO SCH (19:46)
--- NOTE | 2021-04-28 00:12 | Billing Data ---
Date of Service April 28, 2021 Coding Level of Care Code 61875 Initial Inpt Care Lvl 3
[2021-04-28 05:43] LABS: Basophils # (auto) 0.02 K/uL (0-0.2); Basophils % (auto) 0.2 %; Eosinophils # (auto) 0.17 K/uL (0-0.5); Hematocrit (blood only) 37.2 % (37-47); Hemoglobin 12.2 g/dL (12.0-16.0); Immature Granulocytes # (auto) 0.01 K/uL (0.00-0.02); Immature Granulocytes % (auto) 0.1 %; Lymphocytes # (auto) 3.78 K/uL (1.2-3.4); Lymphocytes % (auto) 45.5 %; Mean Corpuscular Hemoglobin 27.9 pg (25-34); Mean Corpuscular Hgb Conc 32.8 g/dL (32-36); Mean Corpuscular Volume 84.9 fL (80-100); Mean Platelet Volume 12.6 fL (7.4-10.4); Monocytes # (auto) 0.64 K/uL (0.11-0.59); Monocytes % (auto) 7.7 %; Neutrophils # (auto) 3.69 K/uL (1.4-6.5); Neutrophils % (auto) 44.5 %; Platelet Count 177 K/uL (130-400); RDW Coefficient of Variation 13.2 % (11.5-14.5); Red Blood Count 4.38 M/uL (4.2-5.4); White Blood Count 8.31 K/uL (4.8-10.8)
[2021-04-28 06:25] LABS: Alanine Aminotransferase 35 U/L (12-78); Albumin Level 2.7 gm/dl (3.4-5.0); Aspartate Aminotransferase 18 U/L (15-37); BUN Creatinine Ratio 14.1 (10-20); Blood Urea Nitrogen 6 mg/dl (7-18); Calcium 8.1 mg/dl (8.5-10.1); Carbon Dioxide 27 mmol/L (21-32); Chloride 111 mmol/L (98-107); Creatinine Clr Calc Pharmacy 227.5 ml/min; Est GFR (African American) > 150.0 ml/min; Est GFR (Non-African American) 144.4 ml/min; Glucose 107 mg/dl (70-99); Magnesium 1.8 mg/dl (1.8-2.4); Potassium 3.7 mmol/L (3.5-5.1); Sodium 141 mmol/L (136-145)
[2021-04-28 06:29] LABS: Albumin Globulin Ratio 0.8 (0.9-2); Alkaline Phosphatase 51 U/L (45-117); Bilirubin,Total 0.4 mg/dl (0.2-1); Globulin 3.2 gm/dl (2.5-4.0); Total Protein 5.9 gm/dl (6.4-8.2)
[2021-04-28] MEDS: NSS + 20MEQ KCL 20 MEQ/1,000 ML BAG IV SCH ×2 (07:29→18:09)
[2021-04-28] MEDS ORDERED: INSULIN GLARGINE SOLOSTAR 100 UNITS/ML 3 ML PEN SC ONE (07:30)
--- NOTE | 2021-04-28 08:27 | Hospitalist Progress Note ---
Date of Service April 28, 2021 Assessment & Plan (1) Palpitations: Plan: Reported but also now with left lower chest discomfort -- also with prior hx of palpitations andwas to have holter of some kind but reported "nothing ever came of it" and never followed up EKG as above Trop repeat pending, ECHO Moving to med/tele for closer monitoring (2) UTI (urinary tract infection): Plan: On admission, reported patient's clinical history, laboratory findings and physical exam findings are consistent with a urinary tract infection. She has been started on ceftriaxone urine cultures have been sent narrow antibiotics pending speciation and sensitivities. Given her history of left-sided abdominal bruising and CVA tenderness obtain CT abdomen pelvis Lyme negative (recent tick bite) but could be that it was just not positive yet. Consider repeat testing (covered with rocephin for UTI as below) CTAP: 1. Mild bladder wall thickening. This may represent a cystitis. Recommend correlation with urinalysis. 2. No renal or ureteral stones. No hydronephrosis. 3. Fluid-filled large and small bowel suggesting a gastroenteritis/diarrheal illness. 4. Normal appendix. Prior urine cx 2019 Ecoli, pansensitive UA with 1+ protein, 3+ glucose, trace ketone, 3+ blood, 1+ leuk est, >30WBC, 10-30 RBC, 10-20 epi, 3+ bacteria, budding yeast (Of note, just got menses as well) Placed on Ceftriaxone -- continued (on day 3 of treatment)-- consider treating for extended course given +CVA tenderness on examination WBC wnl, afebrile Monitor urine cx/s. May also need to give dose of antifungal NSS +20K @ 100cc/hr for now Continue to monitor (3) Diabetes: Plan: Admitted for UTI Dx since age 11 Had been without insurance several times over past year and reported a 2 year period of time when she did not have any insulin. Prior heel seater left the area and she has not been back bc she saw a gentleman "that was rude" and "my fault I haven't been back" BSG low / on admission but she notes she took her insulin and then did not eat anything Pharmacy consulted for glycemic management -- SUPPORT DIRECTOR regimen with lispro 8u BID A1c 14.4, elevated beta-hydroxybutyrate 6.08 Non-anion gap BSGs increased afternoon 04/27 as she has been eating and did get D5 with her magnesium replacement. No [place] breathing/tachycardia (now today) Consult school vocational educator, CM Will need to ensure proper supplies and medications at home as she had been stockpiling due to lack of follow up. Will need to resent rxs at d/c, possible sent up with Dr Purvis at discharge (patient from [facility]) Insulin gtt started 04/27 for elevated BSGs in the 300s --> now better controlled and planning on switching to basal bolus this afternoon Electrolyte replacement as needed BSG AC/HS DM I diet Continue to monitor Trop <0.015 on admission. EKG on admission with sinus tachycardia, nonspecific ST and T wave abnormality. --> Did have K 2.5 and mag 1.6 on admission. Will repeat EKG in AM with normalization of electrolytes. Some ST changes Ddimer negative Will repeat troponin. LLQ chest discomfort reported --> CT chest with stable 6cm subpleural nodule from prior imaging 2018 EKG with read NSR but reported septal infarct now present with nonspecific T wave abn replaced inverted T waves in lateral leads. Does not appear to meet criteria for septal infarct but obtaining ECHO as outlined in A/P Will obtain ECHO give reported hx palpitations and to have some kind of Holter monitor placed but she never had follow up and stated baseline in the 110-120s at rest Will also repeat BMP/Mag to see if additional K/mag replacement needed/causing palpitations today Moving to med/tele for monitoring of any arrhythmia as well Continue to monitor (4) Headache: Plan: reported worst headache but has been going on for several weeks no blurred vision/diplopia/spots CT head pending --> NO ACUTE INTRACRANIAL FINDINGS Tylenol prn headache ?Rebound from opiate yesterday bsg 120 (5) Hypokalemia: Plan: Patient presenting with potassium of 2.5. Mag 1.6 Replacement ordered for both and normal on repeat Ordered repeat BMP/mag this afternoon and 20meq KCl and 1gm IV mag as reported twitching in her legs, non-tender, non-painful, no erythema (6) Abdominal pain: Plan: Secondary to UTI as well as possible diarrhea illness as seen on CTA/P above Improving with tx UTI PPI increased to BID -- consider continued use at d/c Avoid NSAIDs -- had been using ibuprofen daily for over past month Stool studies sent Tylenol, morphine prn pain -- will add oxycodone prn to have middle level of pain control if IV not needed CTAP on admission with fluid-filled large and small bowel suggesting a gastroenteritis/diarrheal illness. Continue to monitor (7) Gastroparesis: Plan: Chronically on metoclopramide 10mg daily -- held given diarrhea Also with seasonal allergies --> fluticasone continued, however will add Zyrtec as well give reflux type symptoms and congestion GI on consult -- appearance Await stool studies Supportive care Checking for c.diff Could be IBS-D Continue to monitor (8) Chronic diarrhea: Plan: As above Slowing holding Reglan, Miralax as ordered on admission (9) Tick bite: Plan: X2 in past month Anaplasmosis smear, Lyme antibody testing negative Anaplasmosis PCR pending -- does not have abn LFTs, low plt, etc (10) Frequent loose stools: Plan: stool studies pending, Giardia, cdiff as above holding Reglan DVT Prophylaxis Lovenox SQ while inpatient Dispo: continued inpatient stay Admission and Anticipated Discharge Date Admission Date: April 27, 2021 Subjective Patient evaluated this morning. Feeling better than on admission. Diarrhea slowed. Discussed holding Reglan for now until bowels return to normal. States headache, worst she has had in her life. No hx migraine. No visual changes, blurred vision or neck stiffness. Starts in the back of her head and travels to her front but she states this is unlike any other headache she has had. No family history of stroke or aneursym reported. [place] palpitations with associated chest discomfort left lower chest/LUQ abdomen. She notes resting heart rate usually elevated and talks of a monitor as an outpatient but nothing ever came of this. She denies shortness of breath when elevated but can feel her heart beating. Sitting forward makes it worse and she is unable to lay on her side. Would like something for pain at this time if available. Discussed checking additional testing but blood sugars improved. She did have discoloration of her left lower leg (prior trauma to that leg) which is resolving, yellowish in color and around her ankle. Spot to her abdomen resolved and no longer present. Glucose levels improving. Review of Systems Review of Systems: All systems reviewed & are unremarkable except as noted in HPI & below Physical Exam Physical Exam: General: WD/WN, No acute distress, laying in bed on phone upon arrival HEENT: Normocephalic atraumatic Neck: No significant lymphadenopathy, trachea midline, normal to visual inspection Cardiac: +Tachycardia 110bpm, regular rhythm, no appreciable rub/gallop but possible loud S2. I did not appreciate any significant pedal edema, capillary refill is less than 3 seconds. Some yellowish bruising to LLE and ankle. pulses palpable. calves non-tender Respiratory: Clear to auscultation bilaterally with symmetrical chest rise, I did not appreciate any significant wheezes, rales, rhonchi, no increased work of breathing GI: Normal bowel sounds, soft, nontender in all 4 quadrants, nondistended. Left-sided CVA tenderness. Tender LUQ, minimally throughout MSK: No sensory or motor changes, moves all extremities without issue, extremities are warm and well-perfused Skin: [place], clean, dry, intact. Fading bruise on the left lower quadrant of her abdomen (no longer present) Neuro: Alert and oriented x4 Psych: Calm, cooperative, logical thought process Results & Data Results & Data ([facility]) Vital Signs (Past 12 Hours) Vital Signs Temp Pulse Resp BP Pulse Ox 04/28/21 07:17 36.8 C 81 16 108/73 99 04/27/21 23:32 37.0 C 87 19 107/72 99 Laboratory Results 04/28/21 04/28/21 04/28/21 Range/Units 11:58 11:39 10:28 WBC (4.8-10.8) K/uL RBC (4.2-5.4) M/uL Hgb (12.0-16.0) g/dL Hct (37-47) % MCV (80-100) fL MCH (25-34) pg MCHC (32-36) g/dL RDW Std Deviation (36.4-46.3) fL RDW Coeff of Mil (11.5-14.5) % Plt Count (130-400) K/uL MPV (7.4-10.4) fL Immature Gran % (Auto) % Neut % (Auto) % Lymph % (Auto) % [place] % (Auto) % Eos % (Auto) % Baso % (Auto) % Neut # (Auto) (1.4-6.5) K/uL Lymph # (Auto) (1.2-3.4) K/uL [place] # (Auto) (0.11-0.59) K/uL Eos # (Auto) (0-0.5) K/uL Baso # (Auto) (0-0.2) K/uL Immature Gran # (Auto) (0.00-0.02) K/uL Sodium (136-145) mmol/L Potassium (3.5-5.1) mmol/L Chloride (98-107) mmol/L Carbon Dioxide (21-32) mmol/L Anion Gap (3-11) BUN (7-18) mg/dl Creatinine (0.6-1.2) mg/dl Est Cr Clr Drug Dosing ml/min Est GFR ( Amer) ml/min Est GFR (Non-Af Amer) ml/min BUN/Creatinine Ratio (10-20) Glucose (70-99) mg/dl POC Glucose 120 H 119 H (70-99) mg/dl Calcium (8.5-10.1) mg/dl Magnesium (1.8-2.4) mg/dl Total Bilirubin (0.2-1) mg/dl AST (15-37) U/L ALT (12-78) U/L Alkaline Phosphatase (45-117) U/L Troponin I < 0.015 (0-0.045) ng/ml Total Protein (6.4-8.2) gm/dl Albumin (3.4-5.0) gm/dl Globulin (2.5-4.0) gm/dl Albumin/Globulin Ratio (0.9-2) Vitamin B12 (193-986) pg/ml IgA Tiss Transglutamin IgA Celiac Disease Interp 04/28/21 04/28/21 04/28/21 Range/Units 09:28 08:30 08:23 WBC (4.8-10.8) K/uL RBC (4.2-5.4) M/uL Hgb (12.0-16.0) g/dL Hct (37-47) % MCV (80-100) fL MCH (25-34) pg MCHC (32-36) g/dL RDW Std Deviation (36.4-46.3) fL RDW Coeff of Mil (11.5-14.5) % Plt Count (130-400) K/uL MPV (7.4-10.4) fL Immature Gran % (Auto) % Neut % (Auto) % Lymph % (Auto) % [place] % (Auto) % Eos % (Auto) % Baso % (Auto) % Neut # (Auto) (1.4-6.5) K/uL Lymph # (Auto) (1.2-3.4) K/uL [place] # (Auto) (0.11-0.59) K/uL Eos # (Auto) (0-0.5) K/uL Baso # (Auto) (0-0.2) K/uL Immature Gran # (Auto) (0.00-0.02) K/uL Sodium (136-145) mmol/L Potassium (3.5-5.1) mmol/L Chloride (98-107) mmol/L Carbon Dioxide (21-32) mmol/L Anion Gap (3-11) BUN (7-18) mg/dl Creatinine (0.6-1.2) mg/dl Est Cr Clr Drug Dosing ml/min Est GFR ( Amer) ml/min Est GFR (Non-Af Amer) ml/min BUN/Creatinine Ratio (10-20) Glucose (70-99) mg/dl POC Glucose 127 H 104 H (70-99) mg/dl Calcium (8.5-10.1) mg/dl Magnesium (1.8-2.4) mg/dl Total Bilirubin (0.2-1) mg/dl AST (15-37) U/L ALT (12-78) U/L Alkaline Phosphatase (45-117) U/L Troponin I (0-0.045) ng/ml Total Protein (6.4-8.2) gm/dl Albumin (3.4-5.0) gm/dl Globulin (2.5-4.0) gm/dl Albumin/Globulin Ratio (0.9-2) Vitamin B12 (193-986) pg/ml IgA Pending Tiss Transglutamin IgA Pending Celiac Disease Interp Pending 04/28/21 04/28/21 04/28/21 Range/Units 07:29 06:41 06:32 WBC (4.8-10.8) K/uL RBC (4.2-5.4) M/uL Hgb (12.0-16.0) g/dL Hct (37-47) % MCV (80-100) fL MCH (25-34) pg MCHC (32-36) g/dL RDW Std Deviation (36.4-46.3) fL RDW Coeff of Mil (11.5-14.5) % Plt Count (130-400) K/uL MPV (7.4-10.4) fL Immature Gran % (Auto) % Neut % (Auto) % Lymph % (Auto) % [place] % (Auto) % Eos % (Auto) % Baso % (Auto) % Neut # (Auto) (1.4-6.5) K/uL Lymph # (Auto) (1.2-3.4) K/uL [place] # (Auto) (0.11-0.59) K/uL Eos # (Auto) (0-0.5) K/uL Baso # (Auto) (0-0.2) K/uL Immature Gran # (Auto) (0.00-0.02) K/uL Sodium (136-145) mmol/L Potassium (3.5-5.1) mmol/L Chloride (98-107) mmol/L Carbon Dioxide (21-32) mmol/L Anion Gap (3-11) BUN (7-18) mg/dl Creatinine (0.6-1.2) mg/dl Est Cr Clr Drug Dosing ml/min Est GFR ( Amer) ml/min Est GFR (Non-Af Amer) ml/min BUN/Creatinine Ratio (10-20) Glucose (70-99) mg/dl POC Glucose 93 98 (70-99) mg/dl Calcium (8.5-10.1) mg/dl Magnesium (1.8-2.4) mg/dl Total Bilirubin (0.2-1) mg/dl AST (15-37) U/L ALT (12-78) U/L Alkaline Phosphatase (45-117) U/L Troponin I (0-0.045) ng/ml Total Protein (6.4-8.2) gm/dl Albumin (3.4-5.0) gm/dl Globulin (2.5-4.0) gm/dl Albumin/Globulin Ratio (0.9-2) Vitamin B12 488 (193-986) pg/ml IgA Tiss Transglutamin IgA Celiac Disease Interp 04/28/21 04/28/21 04/28/21 Range/Units 05:33 05:33 05:30 WBC 8.31 (4.8-10.8) K/uL RBC 4.38 (4.2-5.4) M/uL Hgb 12.2 (12.0-16.0) g/dL Hct 37.2 (37-47) % MCV 84.9 (80-100) fL MCH 27.9 (25-34) pg MCHC 32.8 (32-36) g/dL RDW Std Deviation 41.0 (36.4-46.3) fL RDW Coeff of Mil 13.2 (11.5-14.5) % Plt Count 177 (130-400) K/uL MPV 12.6 H (7.4-10.4) fL Immature Gran % (Auto) 0.1 % Neut % (Auto) 44.5 % Lymph % (Auto) 45.5 % [place] % (Auto) 7.7 % Eos % (Auto) 2.0 % Baso % (Auto) 0.2 % Neut # (Auto) 3.69 (1.4-6.5) K/uL Lymph # (Auto) 3.78 H (1.2-3.4) K/uL [place] # (Auto) 0.64 H (0.11-0.59) K/uL Eos # (Auto) 0.17 (0-0.5) K/uL Baso # (Auto) 0.02 (0-0.2) K/uL Immature Gran # (Auto) 0.01 (0.00-0.02) K/uL Sodium 141 (136-145) mmol/L Potassium 3.7 (3.5-5.1) mmol/L Chloride 111 H (98-107) mmol/L Carbon Dioxide 27 (21-32) mmol/L Anion Gap 3.0 (3-11) BUN 6 L (7-18) mg/dl Creatinine 0.43 L (0.6-1.2) mg/dl Est Cr Clr Drug Dosing 227.5 ml/min Est GFR ( Amer) > 150.0 ml/min Est GFR (Non-Af Amer) 144.4 ml/min BUN/Creatinine Ratio 14.1 (10-20) Glucose 107 H (70-99) mg/dl POC Glucose 97 (70-99) mg/dl Calcium 8.1 L (8.5-10.1) mg/dl Magnesium 1.8 (1.8-2.4) mg/dl Total Bilirubin 0.4 (0.2-1) mg/dl AST 18 (15-37) U/L ALT 35 (12-78) U/L Alkaline Phosphatase 51 (45-117) U/L Troponin I (0-0.045) ng/ml Total Protein 5.9 L D (6.4-8.2) gm/dl Albumin 2.7 L (3.4-5.0) gm/dl Globulin 3.2 (2.5-4.0) gm/dl Albumin/Globulin Ratio 0.8 L (0.9-2) Vitamin B12 (193-986) pg/ml IgA Tiss Transglutamin IgA Celiac Disease Interp 04/28/21 04/28/21 04/28/21 Range/Units 04:34 02:26 01:30 WBC (4.8-10.8) K/uL RBC (4.2-5.4) M/uL Hgb (12.0-16.0) g/dL Hct (37-47) % MCV (80-100) fL MCH (25-34) pg MCHC (32-36) g/dL RDW Std Deviation (36.4-46.3) fL RDW Coeff of Mil (11.5-14.5) % Plt Count (130-400) K/uL MPV (7.4-10.4) fL Immature Gran % (Auto) % Neut % (Auto) % Lymph % (Auto) % [place] % (Auto) % Eos % (Auto) % Baso % (Auto) % Neut # (Auto) (1.4-6.5) K/uL Lymph # (Auto) (1.2-3.4) K/uL [place] # (Auto) (0.11-0.59) K/uL Eos # (Auto) (0-0.5) K/uL Baso # (Auto) (0-0.2) K/uL Immature Gran # (Auto) (0.00-0.02) K/uL Sodium (136-145) mmol/L Potassium (3.5-5.1) mmol/L Chloride (98-107) mmol/L Carbon Dioxide (21-32) mmol/L Anion Gap (3-11) BUN (7-18) mg/dl Creatinine (0.6-1.2) mg/dl Est Cr Clr Drug Dosing ml/min Est GFR ( Amer) ml/min Est GFR (Non-Af Amer) ml/min BUN/Creatinine Ratio (10-20) Glucose (70-99) mg/dl POC Glucose 108 H 136 H 149 H (70-99) mg/dl Calcium (8.5-10.1) mg/dl Magnesium (1.8-2.4) mg/dl Total Bilirubin (0.2-1) mg/dl AST (15-37) U/L ALT (12-78) U/L Alkaline Phosphatase (45-117) U/L Troponin I (0-0.045) ng/ml Total Protein (6.4-8.2) gm/dl Albumin (3.4-5.0) gm/dl Globulin (2.5-4.0) gm/dl Albumin/Globulin Ratio (0.9-2) Vitamin B12 (193-986) pg/ml IgA Tiss Transglutamin IgA Celiac Disease Interp 04/28/21 04/27/21 04/27/21 Range/Units 00:32 23:29 22:27 WBC (4.8-10.8) K/uL RBC (4.2-5.4) M/uL Hgb (12.0-16.0) g/dL Hct (37-47) % MCV (80-100) fL MCH (25-34) pg MCHC (32-36) g/dL RDW Std Deviation (36.4-46.3) fL RDW Coeff of Mil (11.5-14.5) % Plt Count (130-400) K/uL MPV (7.4-10.4) fL Immature Gran % (Auto) % Neut % (Auto) % Lymph % (Auto) % [place] % (Auto) % Eos % (Auto) % Baso % (Auto) % Neut # (Auto) (1.4-6.5) K/uL Lymph # (Auto) (1.2-3.4) K/uL [place] # (Auto) (0.11-0.59) K/uL Eos # (Auto) (0-0.5) K/uL Baso # (Auto) (0-0.2) K/uL Immature Gran # (Auto) (0.00-0.02) K/uL Sodium (136-145) mmol/L Potassium (3.5-5.1) mmol/L Chloride (98-107) mmol/L Carbon Dioxide (21-32) mmol/L Anion Gap (3-11) BUN (7-18) mg/dl Creatinine (0.6-1.2) mg/dl Est Cr Clr Drug Dosing ml/min Est GFR ( Amer) ml/min Est GFR (Non-Af Amer) ml/min BUN/Creatinine Ratio (10-20) Glucose (70-99) mg/dl POC Glucose 171 H 192 H 222 H (70-99) mg/dl Calcium (8.5-10.1) mg/dl Magnesium (1.8-2.4) mg/dl Total Bilirubin (0.2-1) mg/dl AST (15-37) U/L ALT (12-78) U/L Alkaline Phosphatase (45-117) U/L Troponin I (0-0.045) ng/ml Total Protein (6.4-8.2) gm/dl Albumin (3.4-5.0) gm/dl Globulin (2.5-4.0) gm/dl Albumin/Globulin Ratio (0.9-2) Vitamin B12 (193-986) pg/ml IgA Tiss Transglutamin IgA Celiac Disease Interp 04/27/21 04/27/21 04/27/21 Range/Units 21:26 20:33 19:33 WBC (4.8-10.8) K/uL RBC (4.2-5.4) M/uL Hgb (12.0-16.0) g/dL Hct (37-47) % MCV (80-100) fL MCH (25-34) pg MCHC (32-36) g/dL RDW Std Deviation (36.4-46.3) fL RDW Coeff of Mil (11.5-14.5) % Plt Count (130-400) K/uL MPV (7.4-10.4) fL Immature Gran % (Auto) % Neut % (Auto) % Lymph % (Auto) % [place] % (Auto) % Eos % (Auto) % Baso % (Auto) % Neut # (Auto) (1.4-6.5) K/uL Lymph # (Auto) (1.2-3.4) K/uL [place] # (Auto) (0.11-0.59) K/uL Eos # (Auto) (0-0.5) K/uL Baso # (Auto) (0-0.2) K/uL Immature Gran # (Auto) (0.00-0.02) K/uL Sodium (136-145) mmol/L Potassium (3.5-5.1) mmol/L Chloride (98-107) mmol/L Carbon Dioxide (21-32) mmol/L Anion Gap (3-11) BUN (7-18) mg/dl Creatinine (0.6-1.2) mg/dl Est Cr Clr Drug Dosing ml/min Est GFR ( Amer) ml/min Est GFR (Non-Af Amer) ml/min BUN/Creatinine Ratio (10-20) Glucose (70-99) mg/dl POC Glucose 241 H 255 H 274 H (70-99) mg/dl Calcium (8.5-10.1) mg/dl Magnesium (1.8-2.4) mg/dl Total Bilirubin (0.2-1) mg/dl AST (15-37) U/L ALT (12-78) U/L Alkaline Phosphatase (45-117) U/L Troponin I (0-0.045) ng/ml Total Protein (6.4-8.2) gm/dl Albumin (3.4-5.0) gm/dl Globulin (2.5-4.0) gm/dl Albumin/Globulin Ratio (0.9-2) Vitamin B12 (193-986) pg/ml IgA Tiss Transglutamin IgA Celiac Disease Interp 04/27/21 04/27/21 04/27/21 Range/Units 18:29 17:01 15:20 WBC (4.8-10.8) K/uL RBC (4.2-5.4) M/uL Hgb (12.0-16.0) g/dL Hct (37-47) % MCV (80-100) fL MCH (25-34) pg MCHC (32-36) g/dL RDW Std Deviation (36.4-46.3) fL RDW Coeff of Mil (11.5-14.5) % Plt Count (130-400) K/uL MPV (7.4-10.4) fL Immature Gran % (Auto) % Neut % (Auto) % Lymph % (Auto) % [place] % (Auto) % Eos % (Auto) % Baso % (Auto) % Neut # (Auto) (1.4-6.5) K/uL Lymph # (Auto) (1.2-3.4) K/uL [place] # (Auto) (0.11-0.59) K/uL Eos # (Auto) (0-0.5) K/uL Baso # (Auto) (0-0.2) K/uL Immature Gran # (Auto) (0.00-0.02) K/uL Sodium (136-145) mmol/L Potassium (3.5-5.1) mmol/L Chloride (98-107) mmol/L Carbon Dioxide (21-32) mmol/L Anion Gap (3-11) BUN (7-18) mg/dl Creatinine (0.6-1.2) mg/dl Est Cr Clr Drug Dosing ml/min Est GFR ( Amer) ml/min Est GFR (Non-Af Amer) ml/min BUN/Creatinine Ratio (10-20) Glucose (70-99) mg/dl POC Glucose 327 H* 313 H* 296 H (70-99) mg/dl Calcium (8.5-10.1) mg/dl Magnesium (1.8-2.4) mg/dl Total Bilirubin (0.2-1) mg/dl AST (15-37) U/L ALT (12-78) U/L Alkaline Phosphatase (45-117) U/L Troponin I (0-0.045) ng/ml Total Protein (6.4-8.2) gm/dl Albumin (3.4-5.0) gm/dl Globulin (2.5-4.0) gm/dl Albumin/Globulin Ratio (0.9-2) Vitamin B12 (193-986) pg/ml IgA Tiss Transglutamin IgA Celiac Disease Interp 04/27/21 04/27/21 04/27/21 Range/Units 15:18 12:28 12:25 WBC (4.8-10.8) K/uL RBC (4.2-5.4) M/uL Hgb (12.0-16.0) g/dL Hct (37-47) % MCV (80-100) fL MCH (25-34) pg MCHC (32-36) g/dL RDW Std Deviation (36.4-46.3) fL RDW Coeff of Mil (11.5-14.5) % Plt Count (130-400) K/uL MPV (7.4-10.4) fL Immature Gran % (Auto) % Neut % (Auto) % Lymph % (Auto) % [place] % (Auto) % Eos % (Auto) % Baso % (Auto) % Neut # (Auto) (1.4-6.5) K/uL Lymph # (Auto) (1.2-3.4) K/uL [place] # (Auto) (0.11-0.59) K/uL Eos # (Auto) (0-0.5) K/uL Baso # (Auto) (0-0.2) K/uL Immature Gran # (Auto) (0.00-0.02) K/uL Sodium (136-145) mmol/L Potassium (3.5-5.1) mmol/L Chloride (98-107) mmol/L Carbon Dioxide (21-32) mmol/L Anion Gap (3-11) BUN (7-18) mg/dl Creatinine (0.6-1.2) mg/dl Est Cr Clr Drug Dosing ml/min Est GFR ( Amer) ml/min Est GFR (Non-Af Amer) ml/min BUN/Creatinine Ratio (10-20) Glucose (70-99) mg/dl POC Glucose 304 H* 295 H 280 H (70-99) mg/dl Calcium (8.5-10.1) mg/dl Magnesium (1.8-2.4) mg/dl Total Bilirubin (0.2-1) mg/dl AST (15-37) U/L ALT (12-78) U/L Alkaline Phosphatase (45-117) U/L Troponin I (0-0.045) ng/ml Total Protein (6.4-8.2) gm/dl Albumin (3.4-5.0) gm/dl Globulin (2.5-4.0) gm/dl Albumin/Globulin Ratio (0.9-2) Vitamin B12 (193-986) pg/ml IgA Tiss Transglutamin IgA Celiac Disease Interp 04/27/21 Range/Units 12:23 WBC (4.8-10.8) K/uL RBC (4.2-5.4) M/uL Hgb (12.0-16.0) g/dL Hct (37-47) % MCV (80-100) fL MCH (25-34) pg MCHC (32-36) g/dL RDW Std Deviation (36.4-46.3) fL RDW Coeff of Mil (11.5-14.5) % Plt Count (130-400) K/uL MPV (7.4-10.4) fL Immature Gran % (Auto) % Neut % (Auto) % Lymph % (Auto) % [place] % (Auto) % Eos % (Auto) % Baso % (Auto) % Neut # (Auto) (1.4-6.5) K/uL Lymph # (Auto) (1.2-3.4) K/uL [place] # (Auto) (0.11-0.59) K/uL Eos # (Auto) (0-0.5) K/uL Baso # (Auto) (0-0.2) K/uL Immature Gran # (Auto) (0.00-0.02) K/uL Sodium (136-145) mmol/L Potassium (3.5-5.1) mmol/L Chloride (98-107) mmol/L Carbon Dioxide (21-32) mmol/L Anion Gap (3-11) BUN (7-18) mg/dl Creatinine (0.6-1.2) mg/dl Est Cr Clr Drug Dosing ml/min Est GFR ( Amer) ml/min Est GFR (Non-Af Amer) ml/min BUN/Creatinine Ratio (10-20) Glucose (70-99) mg/dl POC Glucose 328 H* (70-99) mg/dl Calcium (8.5-10.1) mg/dl Magnesium (1.8-2.4) mg/dl Total Bilirubin (0.2-1) mg/dl AST (15-37) U/L ALT (12-78) U/L Alkaline Phosphatase (45-117) U/L Troponin I (0-0.045) ng/ml Total Protein (6.4-8.2) gm/dl Albumin (3.4-5.0) gm/dl Globulin (2.5-4.0) gm/dl Albumin/Globulin Ratio (0.9-2) Vitamin B12 (193-986) pg/ml IgA Tiss Transglutamin IgA Celiac Disease Interp Diagnostic Findings Chest CT 04/28/21 08:20 CT OF THE CHEST WITH IV CONTRAST CLINICAL HISTORY: 6cm subpleural density left lower lobe, shortness of breath. COMPARISON STUDY: Chest radiograph November 20, 2014. CT of the abdomen and pelvis June 28, 2015. TECHNIQUE: Following IV administration of 94 mL of Optiray, helical axial images of the chest were obtained. Sagittal and coronal reconstructions were viewed as well as maximal intensity projections on an independent 3-D workstation. Automated exposure control was utilized for the study. A dose lowering technique was utilized adhering to the principles of ALARA. CT DOSE: 375.84 mGy.cm FINDINGS: Size of the heart is normal. There is no pericardial effusion. No enlarged axillary, mediastinal or hilar lymph nodes are present. The central airways are patent. There is no consolidation to suggest pneumonia. A 6 mm subpleural nodule within the left lower lobe on image 158 of 291 is unchanged since abdominal CT of July 13, 2019. This corresponds to the finding on CT of April 27, 2021. A few additional smaller pulmonary nodules are benign. There is no pneumothorax or pleural effusion. No acute fracture or suspicious lesion is identified within visualized portions of the bony thorax. IMPRESSION: 1. 6 mm subpleural left lower lobe nodule which is stable since CT of July 13, 2019. This is benign. 2. No acute process within chest. ACT 112: Negative or not required by law. Electronically signed by: Travis Hogan M.D. 04/28/2021 10:[address] 04/28/21 11:26 CT OF THE HEAD WITHOUT CONTRAST CLINICAL HISTORY: headache COMPARISON STUDY: Head CT December 29, 2019. CT DOSE: 537.48 mGy.cm TECHNIQUE: Helical axial images of the head were obtained without IV contrast. Automated exposure control was utilized for the study. A dose lowering technique was utilized adhering to the principles of ALARA. FINDINGS: Intravascular contrast is from recent contrast-enhanced chest CT. No acute intracranial hemorrhage, midline shift or mass effect is present. The ventricular system is unremarkable. The basal cisterns are patent. No extra- axial collections are present. There are no findings to suggest acute dural sinus thrombosis or acute territorial infarct. No significant calvarial abnormalities are present. Visualized portions of the sinuses and mastoid air cells are clear. IMPRESSION: No acute intracranial findings. ACT 112: Negative or not required by law. Electronically signed by: Travis Hogan M.D. 04/28/2021 11:53 AM ECG Additional Comments: NSR but reported septal infarct now present with nonspecific T wave abn replaced inverted T waves in lateral leads. Does not appear to meet criteria for septal infarct but obtaining ECHO as outlined in A/P PG Care Time/CCT Total # of Minutes Spent Total Time Spent with Patient: Total time spent is greater than 50% in coordination of care (as documented) at patient's floor/unit and/or counseling patient: Coding Level of Care Code 28217 Subseq Hosp Care Lvl 3 Diagnoses UTI (urinary tract infection) N39.0 Hypokalemia E87.6 Diabetes E11.9 Gastroparesis K31.84 Chronic diarrhea K52.9 Tick bite [id number].XXXA Abdominal pain R10.9 Frequent loose stools R19.7 Palpitations R00.2 Headache R51.9
[2021-04-28] MEDS: INSULIN ASPART 100 UNITS/ML 3 ML PEN SC SCH ×4 (08:49→21:15)
[2021-04-28] MEDS: CETIRIZINE HCL 10 MG TABLET PO SCH (08:59)
[2021-04-28] MEDS: CALCIUM CARBONATE 500 MG CHEWABLE TAB PO SCH ×2 (08:59→21:13)
[2021-04-28] MEDS: PANTOprazole 40 MG TAB PO SCH ×2 (09:01→21:14)
[2021-04-28] MEDS: FLUTICASONE PROPIONATE NA SPR 16 GM BTL SCH (09:01)
[2021-04-28] MEDS: ENOXAPARIN INJ 40 MG/0.4 ML SYR SQ SCH (09:03)
[2021-04-28] MEDS: cefTRIAXone SODIUM 2,000 MG in DEXTROSE 5% 50 ML IV SCH (09:08)
[2021-04-28] MEDS ORDERED: OPTIRAY 320 100ml IV ONE (09:29)
--- NOTE | 2021-04-28 10:41 | CT Scan Report ---
CT OF THE CHEST WITH IV CONTRAST CLINICAL HISTORY: 6cm subpleural density left lower lobe, shortness of breath. COMPARISON STUDY: Chest radiograph November 20, 2014. CT of the abdomen and pelvis June 28, 2015 . TECHNIQUE: Following IV administration of 94 mL of Optiray, helical axial images of the chest were o btained. Sagittal and coronal reconstructions were viewed as well as maximal intensity projections o n an independent 3-D workstation. Automated exposure control was utilized for the study. A dose low ering technique was utilized adhering to the principles of ALARA. CT DOSE: 375.84 mGy.cm FINDINGS: Size of the heart is normal. There is no pericardial effusion. No enlarged axillary, media stinal or hilar lymph nodes are present. The central airways are patent. There is no consolidation to suggest pneumonia. A 6 mm subpleural nodule within the left lower lobe on image 158 of 291 is unchan ged since abdominal CT of July 13, 2019. This corresponds to the finding on CT of April 27, 2021. A few additional smaller pulmonary nodules are benign. There is no pneumothorax or pleural effusion. No acute fracture or suspicious lesion is identified within visualized portions of the bony thorax. IMPRESSION: 1. 6 mm subpleural left lower lobe nodule which is stable since CT of July 13, 2019. This is benign . 2. No acute process within chest. ACT 112: Negative or not required by law. Electronically signed by: Travis Hogan M.D. 04/28/2021 10:40 AM
--- NOTE | 2021-04-28 11:21 | Gastrointestinal Consultation ---
Date of Consultation April 28, 2021 Assessment & Plan (1) Gastroparesis: (2) Abdominal pain: (3) Chronic diarrhea: uncontrolled gastroparesis likely 2ndary to DM2, A1c around 12. In terms of her diarrhea, need to rule out parasitic, bacterial infections, as well as autoimmune etiologies. stool studies and celiac testing pending. Could also be IBS-D. Recs: 1.tight blood glucose control to help improve gastroparesis 2.low fat, low fiber diet, small meals 3-4 times daily 3. obtain stool cdiff testing 4.follow up stool studies including culture and giardia, f/u celiac testing 5.supportive care, IVFs Thank you for allowing me to participate in the care of this patient History of Present Illness Attending Physician: Myron Jacome MD History of Present Illness 21 yo female with hx DM2 c/b gastroparesis (last A1c around 12) who presented with flank pain and urinary symptoms. 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 CT A/P shows a possible gastroenteritis. She notes having chronic diarrhea sometimes 30 times in a day, usually after eating, and can have night symptoms. Notes prior colonoscopy and EGD were unremarkable, done at [facility]. She was tried on reglan for her gastroparesis previously with no improvement. Currently has 7/10 LUQ pains that are constant, not affected by bm nor eating. She had a tick bite and testing for lyme and anaplasmosis were negative. Labs reviewed, VSS. Allergies Allergy/AdvReac Type Severity Reaction Status Date / Time Lady Bugs Allergy Intermediate Swelling Uncoded 04/26/21 21:39 and hives Home Medications Medication Instructions Recorded Confirmed Type insulin lispro 100 unit/mL 8 unit SUBCUT BID 07/13/19 04/26/21 History subcutaneous pen (Humalog KwikPen (U-100) Insulin) levonorgestrel-ethinyl estradiol 1 tab PO QAM 07/13/19 04/26/21 History 0.1 mg-20 mcg tablet (Lutera (28)) fluticasone propionate 50 2 spray INTRANASAL DAILY 04/26/21 04/26/21 History mcg/actuation nasal spray,suspension metoclopramide HCl 10 mg tablet 10 mg PO QAM 04/26/21 04/26/21 History omeprazole 40 mg capsule,delayed 40 mg PO QAM 04/26/21 04/26/21 History release Patient History Medical History Boils Diabetes Frequent loose stools Surgical History No significant past surgical history Social History Smoking Status: Never smoker Hx Alcohol Use: No Hx Substance Use: Yes (pt tested positive in ED but states "no") Preferred Language: Malawian Communication Ability: Effective Bulk Filler Required: No Beliefs That Will Affect Care: None Current Living Situation: Parent Other Information That Helps Us Care for You: No Feels Safe at Home: Yes Safety Concerns: Feels Safe At This Time Assistive Devices: None Review of Systems Constitutional: no fever, no chills and no weight loss Eyes: as per Subjective / HPI Ear, Nose, Mouth, Throat: as per Subjective / HPI Respiratory: no dyspnea and no dyspnea on exertion Cardiovascular: no chest pain and no palpitations Gastrointestinal: as per Subjective / HPI Musculoskeletal: no joint pain and no swelling Integumentary: no rash and no lesions Neurologic: no numbness and no paresthesia Psychiatric: no depression and no anxiety Endocrine: no fatigue Hematologic / Lymphatic: no easy bleeding and no easy bruising Physical Exam Constitutional: WD/WN, vitals as above Eyes: EOM intact bilaterally Neck: normal visual inspection Respiratory: normal respiratory effort, lungs clear to auscultation Cardiovascular: RRR, no murmur, no edema Gastrointestinal (Abdomen): Inspection/Auscultation: abdomen normal to inspection; abdomen not distended Percussion/Palpation: + abdomen tender (moderate LUQ) and abdomen soft; no hepatosplenomegaly Musculoskeletal: Extremities: no cyanosis Gait: normal gait Skin: no rashes, warm and dry Neurologic: moves all extremities Psychiatric: A+Ox3, euthymic affect Results & Data ([facility]) Vital Signs (Past 12 Hours) Vital Signs Temp Pulse Resp BP Pulse Ox 04/28/21 07:17 36.8 C 81 16 108/73 99 04/27/21 23:32 37.0 C 87 19 107/72 99 PG Care Time/CCT Total # of Minutes Spent Total Time Spent with Patient: Total time spent is greater than 50% in coordination of care (as documented) at patient's floor/unit and/or counseling p atient: Coding Level of Care Code 89315 Inpt Consult Level 4 Diagnoses Gastroparesis K31.84 Abdominal pain R10.9 Chronic diarrhea K52.9
[2021-04-28] MEDS: oxyCODONE HCL IR 5 MG TAB (IMMEDIATE RELEASE) PO PRN (11:27)
--- NOTE | 2021-04-28 11:54 | CT Scan Report ---
CT OF THE HEAD WITHOUT CONTRAST CLINICAL HISTORY: headache COMPARISON STUDY: Head CT December 29, 2019. CT DOSE: 537.48 mGy.cm TECHNIQUE: Helical axial images of the head were obtained without IV contrast. Automated exposure con trol was utilized for the study. A dose lowering technique was utilized adhering to the principles o f ALARA. FINDINGS: Intravascular contrast is from recent contrast-enhanced chest CT. No acute intracranial hem orrhage, midline shift or mass effect is present. The ventricular system is unremarkable. The basal c isterns are patent. No extra-axial collections are present. There are no findings to suggest acute du ral sinus thrombosis or acute territorial infarct. No significant calvarial abnormalities are present . Visualized portions of the sinuses and mastoid air cells are clear. IMPRESSION: No acute intracranial findings. ACT 112: Negative or not required by law. Electronically signed by: Travis Hogan M.D. 04/28/2021 11:53 AM
[2021-04-28] MEDS ORDERED: POTASSIUM CHLORIDE CRTAB 20 MEQ TABCR PO STA (12:11)
[2021-04-28] MEDS ORDERED: MAGNESIUM SULFATE / D5W 1 GM/100 ML BAG IV ONE (12:30)
--- NOTE | 2021-04-28 13:32 | Electrocardiogram Report ---
Test Reason : Blood Pressure : / mmHG Vent. Rate : 085 BPM Atrial Rate : 085 BPM P-R Int : 124 ms QRS Dur : 094 ms QT Int : 376 ms P-R-T Axes : 015 063 -22 degrees QTc Int : 447 ms Normal sinus rhythm Septal infarct , age undetermined Nonspecific ST and T wave abnormality Abnormal ECG When compared with ECG of 26-APR-2021 19:36, Septal infarct is now Present Nonspecific T wave abnormality has replaced inverted T waves in Lateral leads Confirmed by Rob Altamirano ([id number]) on 04/28/2021 1:31:32 PM Referred By: REFERRED SELF Confirmed By:Rob Altamirano
--- NOTE | 2021-04-28 13:57 | Pharmacy Report ---
Pharmacy Glycemic Short Note 2 - Date of Service April 28, 2021 - Glycemic Short BSG Results (Last 24 hours): 04/27/21 04/27/21 04/27/21 15:18 15:20 17:01 Glucose POC Glucose 304 H* 296 H 313 H* 04/27/21 04/27/21 04/27/21 18:29 19:33 20:33 Glucose POC Glucose 327 H* 274 H 255 H 04/27/21 04/27/21 04/27/21 21:26 22:27 23:29 Glucose POC Glucose 241 H 222 H 192 H 04/28/21 04/28/21 04/28/21 00:32 01:30 02:26 Glucose POC Glucose 171 H 149 H 136 H 04/28/21 04/28/21 04/28/21 04:34 05:30 05:33 Glucose 107 H POC Glucose 108 H 97 04/28/21 04/28/21 04/28/21 06:32 07:29 08:23 Glucose POC Glucose 98 93 104 H 04/28/21 04/28/21 04/28/21 09:28 10:28 11:58 Glucose POC Glucose 127 H 119 H 120 H 04/28/21 12:28 Glucose POC Glucose 110 H OUTPATIENT ANTIDIABETIC REGIMEN: * Humalog 8 units TID with meals * A1c 14.4% 04/27/21 ASSESSMENT: 04/28/21 * Patient started on IV insulin infusion last night for sustained high blood sugars in 200-300s, blood sugars well controlled since midnight. * Blood sugars at goal on drip, started Lantus to overlap, will DC drip when it "turns itself off" as listed in parameters below. * GI consult, re: gastroparesis, severe chronic diarrhea, need to rule out parasitic, bacterial infections, as well as autoimmune etiologies. stool studies and celiac testing pending. Could also be IBS-D. * Patient transferring to med/tele for cardiac monitoring. 04/27/21 * 21 year old female, PMH of seasonal allergies, diabetes, and gastroparesis, admitted with UTI on IV antibiotics. * Uncontrolled DM, 14.4% d/t noncompliance and insurance issues. Spoke w/ patient, she is now on her parent's insurance, but needs a new doctor. * She was on Basaglar at one time but then couldn't get it because of insurance issues. * Discussed Relion insulin from [employer] and using vials and syringes vs pens, patient states she prefers the pens * Started patient on bolus insulin with regular insulin, d/t gastroparesis, blood sugars elevated today, will tighten CF/CR, add basal, and titrate to goal blood sugar * CDE consult ordered PLAN FOR INPATIENT GLYCEMIC CONTROL: * IV insulin infusion, running at 1.4unit/hr currently * Goal range 110-180mg/dl * DC when BSG < 180mg/dl x 2 consecutive checks AND Rate less than 1unit/hr * Basal insulin * Lantus 30 units x 1 dose this morning, further dosing tomorrow morning * Bolus insulin * NovoLog per scale ACHS while eating and on insulin drip * Nutritional / Prandial insulin per carb ratio of 1 unit per 7 grams CHO consumed * When IV Insulin infusion is discontinued: * Bolus insulin * NovoLog per scale ACHS and overnight at 00,04 * Correction factor: 20 mg/dl/unit * Nutritional / Prandial insulin per carb ratio of 1 unit per 6 grams CHO consumed PLAN FOR DISCHARGE: * to be determined based on insurance options and needs endocrinology follow up * Could possibly use Relion 70/30 pens??
[2021-04-28 15:17] LABS: BUN Creatinine Ratio 7.8 (10-20); Blood Urea Nitrogen 4 mg/dl (7-18); Calcium 8.1 mg/dl (8.5-10.1); Carbon Dioxide 25 mmol/L (21-32); Chloride 107 mmol/L (98-107); Creatinine Clr Calc Pharmacy 171.6 ml/min; Est GFR (African American) > 150.0 ml/min; Est GFR (Non-African American) 131.6 ml/min; Glucose 258 mg/dl (70-99); Magnesium 4.8 mg/dl (1.8-2.4); Potassium 4.6 mmol/L (3.5-5.1); Sodium 139 mmol/L (136-145)
[2021-04-28] MEDS ORDERED: ONDANSETRON INJ 2 MG/ML 2 ML VIAL IV PRN (15:34)
[2021-04-28] MEDS ORDERED: METOCLOPRAMIDE HCL 10 MG TABLET PO ONE (15:45)
[2021-04-29 06:49] LABS: Basophils # (auto) 0.01 K/uL (0-0.2); Basophils % (auto) 0.1 %; Eosinophils % (auto) 1.3 %; Hematocrit (blood only) 37.8 % (37-47); Hemoglobin 12.4 g/dL (12.0-16.0); Immature Granulocytes # (auto) 0.01 K/uL (0.00-0.02); Immature Granulocytes % (auto) 0.1 %; Lymphocytes # (auto) 2.58 K/uL (1.2-3.4); Lymphocytes % (auto) 33.9 %; Mean Corpuscular Hemoglobin 28.2 pg (25-34); Mean Corpuscular Hgb Conc 32.8 g/dL (32-36); Mean Corpuscular Volume 86.1 fL (80-100); Mean Platelet Volume 12.1 fL (7.4-10.4); Monocytes # (auto) 0.59 K/uL (0.11-0.59); Monocytes % (auto) 7.8 %; Neutrophils # (auto) 4.31 K/uL (1.4-6.5); Neutrophils % (auto) 56.8 %; Platelet Count 164 K/uL (130-400); RDW Coefficient of Variation 13.2 % (11.5-14.5); RDW Standard Deviation 41.4 fL (36.4-46.3); Red Blood Count 4.39 M/uL (4.2-5.4)
[2021-04-29 07:21] LABS: Alanine Aminotransferase 43 U/L (12-78); Albumin Level 2.8 gm/dl (3.4-5.0); Aspartate Aminotransferase 26 U/L (15-37); BUN Creatinine Ratio 12.1 (10-20); Blood Urea Nitrogen 6 mg/dl (7-18); Calcium 8.2 mg/dl (8.5-10.1); Carbon Dioxide 26 mmol/L (21-32); Chloride 110 mmol/L (98-107); Est GFR (African American) > 150.0 ml/min; Est GFR (Non-African American) 138.3 ml/min; Glucose 110 mg/dl (70-99); Magnesium 1.7 mg/dl (1.8-2.4); Sodium 142 mmol/L (136-145)
[2021-04-29 07:24] LABS: Albumin Globulin Ratio 0.9 (0.9-2); Alkaline Phosphatase 49 U/L (45-117); Bilirubin,Total 0.2 mg/dl (0.2-1); Globulin 3.3 gm/dl (2.5-4.0); Total Protein 6.1 gm/dl (6.4-8.2)
[2021-04-29] MEDS ORDERED: INSULIN GLARGINE SOLOSTAR 100 UNITS/ML 3 ML PEN SC ONE (08:00)
--- NOTE | 2021-04-29 08:19 | Hospitalist Progress Note ---
Date of Service April 29, 2021 Assessment & Plan (1) Palpitations: Plan: troponin negative x 2 ECHO left ventricular systolic function normal, no regional wall motion abnormalities, EF 60-65, no valvular pathology. Suspect these are subjective we will move off telemetry (2) UTI (urinary tract infection): Plan: On admission, reported patient's clinical history, laboratory findings and physical exam findings are consistent with a urinary tract infection. She has been started on ceftriaxone urine cultures have been sent narrow antibiotics pending speciation and sensitivities. Lyme negative (recent tick bite) but could be that it was just not positive yet. Consider repeat testing (covered with rocephin for UTI as below) CTAP: 1. Mild bladder wall thickening. This may represent a cystitis. 2. No renal or ureteral stones. No hydronephrosis. 3. Fluid-filled large and small bowel suggesting a gastroenteritis/diarrheal illness. 4. Normal appendix. Prior urine cx 2019 Ecoli, pansensitive UA with 1+ protein, 3+ glucose, trace ketone, 3+ blood, 1+ leuk est, >30WBC, 10-30 RBC, 10-20 epi, 3+ bacteria, budding yeast (Of note, just got menses as well) Placed on Ceftriaxone --given she is a diabetic will complete 5 days of treatment (3) Diabetes: Plan: Insulin requiring since age 11 lack of insurance has made treatment challenging Pharmacy consulted for glycemic management -- ROUTE JUMPER regimen with lispro 8u BID Insulin gtt started 04/27 for elevated BSGs in the 300s --> now basal bolus (4) Headache: Plan: CT head --> NO ACUTE INTRACRANIAL FINDINGS Tylenol prn headache ?Rebound from opiate (5) Hypokalemia: Plan: replete and replete magnesium (6) Abdominal pain: Plan: Secondary to UTI as well as possible diarrhea illness as seen on CTA/P above Improving with tx UTI PPI increased to BID -- consider continued use at d/c Avoid NSAIDs -- had been using ibuprofen daily for over past month Stool studies sent, celilac panel pending Tylenol, morphine prn pain -- will add oxycodone prn to have middle level of pain control if IV not needed (7) Gastroparesis: Plan: Chronically on metoclopramide now on hold Patient with a history of reportedly eosinophilic esophagitis EGD performed 04/29 esophagus appeared normal biopsies taken there was mild gastritis and food in her stomach consistent with her history of gastroparesis. (8) Tick bite: Plan: X2 in past month Anaplasmosis smear, Lyme antibody testing negative Anaplasmosis PCR pending -- does not have abn LFTs, low plt, etc (9) Frequent loose stools: Plan: stool studies pending, Giardia, cdiff as above holding Reglan DVT Prophylaxis Lovenox SQ while inpatient Dispo: continued inpatient stay Admission and Anticipated Discharge Date Admission Date: April 27, 2021 Subjective Patient is seen after EGD her headache is resolved. She is also on bilateral lower rib pain which is pleuritic and positional in nature. She has no significant tenderness to exam nor does have any skin changes and because his bilateral zoster is not likely in the differential. This likely seem to be mostly musculoskeletal. However the patient was n.p.o. for procedure she just began to eat now we need to get her diabetic care squared away she likely need to be in the hospital an additional day to have her diabetic care squared away. Review of Systems Review of Systems: Mild distress and fatigue no headache, no visual changes no speech or swallowing issues Bilateral lower rib pain pleuritic and positional no shortness of breath, cough or wheezes no abdominal pain, nausea or vomiting, diarrhea or constipation no dysuria, hematuria or frequency no focal joint pain or swelling no back pain, CVA tenderness or radicular pain no bruising, bleeding or rashes no focal signs of weakness or numbness or altered sensation no complaints of anxiety or depression.. Physical Exam Physical Exam: The patient appeared well nourished and normally developed. Vital signs as documented. Head exam is normocephalic atraumatic Neck is without JVD, thyromegaly, or carotid bruits. Lungs are clear to auscultation, no focal loss of breath sounds Cardiac exam, Rhythm is regular.. No murmurs, rubs or gallops. Abdominal exam reveals normal bowel sounds, soft non tender, no masses pain is reproducible with examination Extremities are nonedematous and both pedal pulses are present Neurologic exam is alert and oriented, no focal loss of strength or sensation Skin is without bruises or rashes Psychologically is without concerns for anxiety or depression Results & Data Results & Data ([facility]) Vital Signs (Past 12 Hours) Vital Signs Temp Pulse Pulse Resp BP Pulse Ox 04/29/21 07:00 98.2 F 76 18 124/85 98 04/29/21 02:54 98.2 F 73 18 102/66 97 04/28/21 22:47 98.8 F 77 18 102/66 98 04/28/21 22:19 74 PG Care Time/CCT Total # of Minutes Spent Total Time Spent with Patient: Total time spent is greater than 50% in coordination of care (as documented) at patient's floor/unit and/or counseling patient: Coding Level of Care Code 17862 Subseq Hosp Care Lvl 2 Diagnoses Palpitations R00.2 UTI (urinary tract infection) N39.0 Diabetes E11.9 Headache R51.9 Hypokalemia E87.6 Abdominal pain R10.9 Gastroparesis K31.84 Tick bite W57.XXXA Frequent loose stools R19.7
[2021-04-29] MEDS: NSS + 20MEQ KCL 20 MEQ/1,000 ML BAG IV SCH (08:24)
[2021-04-29] MEDS: cefTRIAXone SODIUM 2,000 MG in DEXTROSE 5% 50 ML IV SCH (08:24)
[2021-04-29] MEDS: FLUTICASONE PROPIONATE NA SPR 16 GM BTL SCH (08:25)
[2021-04-29] MEDS ORDERED: MAGNESIUM SULFATE / D5W 1 GM/100 ML BAG IV ONE (08:30)
[2021-04-29] MEDS: CETIRIZINE HCL 10 MG TABLET PO SCH (08:36)
[2021-04-29] MEDS: ENOXAPARIN INJ 40 MG/0.4 ML SYR SQ SCH (08:37)
[2021-04-29] MEDS: PANTOprazole 40 MG TAB PO SCH ×2 (08:37→20:33)
--- NOTE | 2021-04-29 08:37 | History & Physical Bridge Note ---
Date of Service April 29, 2021 History & Physical Bridge Note I have examined the patient, reviewed the History & Physical and in the interval since the performance of the History & Physical I have noted the following changes of clinical significance: no changes noted Proceed with EGD. risks/benefits and procedure discussed with patient, who agrees to proceed
[2021-04-29] MEDS: oxyCODONE HCL IR 5 MG TAB (IMMEDIATE RELEASE) PO PRN (08:47)
[2021-04-29 09:12] LABS: Marijuana Quant, GCMS Urine 363 ng/mL (<5)
--- NOTE | 2021-04-29 09:14 | Anesthesiology Consultation ---
Date of Service April 29, 2021 Assessment & Plan (1) Encounter for pre-operative examination: Chart Review Chart Review: Acceptable Risk for Surgery, Patient NOT seen in Pre Admission Testing and entry rep initiated Consults Requested none ASA ASA3 Proposed Anesthesia Anesthesia Type: MAC Risk / Benefits Reviewed With: PT / POA / Parent / Guardian, Accepts Plan and Informed Consent Obtained History Surgery Operation Date: 04/29/21 17:00 Proposed Procedures p Esophagogastroduodenoscopy Dr. Watkins - Bimal Watkins MD Height/Weight Height: 5 ft 8 in Weight: 82.7 kg Allergies Allergy/AdvReac Type Severity Reaction Status Date / Time Lady Bugs Allergy Intermediate Swelling Uncoded 04/26/21 21:39 and hives Medications Home Medications Medication Instructions Recorded Confirmed Last Taken insulin lispro 100 unit/mL 8 unit SUBCUT BID 07/13/19 04/26/21 04/26/21 subcutaneous pen (Humalog KwikPen (U-100) Insulin) levonorgestrel-ethinyl estradiol 1 tab PO QAM 07/13/19 04/26/21 04/26/21 0.1 mg-20 mcg tablet (Lutera (28)) fluticasone propionate 50 2 spray INTRANASAL DAILY 04/26/21 04/26/21 Unknown mcg/actuation nasal spray,suspension metoclopramide HCl 10 mg tablet 10 mg PO QAM 04/26/21 04/26/21 Unknown omeprazole 40 mg capsule,delayed 40 mg PO QAM 04/26/21 04/26/21 Unknown release Active Medications Generic Name Dose Route Start Last Admin Trade Name Freq PRN Reason Stop Dose Admin Acetaminophen 1,000 mg 04/27/21 05:46 04/27/21 15:20 Acetaminophen 500 Mg Tab PO 05/27/21 05:45 1,000 mg Q8H PRN Administration pain/fever Cetirizine HCl 10 mg 04/28/21 09:00 04/29/21 08:36 Cetirizine Hcl 10 Mg Tablet PO 05/28/21 08:59 10 mg QAM MARIELLA Administration Enoxaparin Sodium 40 mg 04/27/21 09:00 04/29/21 08:37 Enoxaparin Inj 40 Mg/0.4 Ml Syr SQ 05/27/21 08:59 40 mg Q24H MARIELLA Administration Fluticasone Propionate 2 sprays 04/27/21 09:00 04/29/21 08:25 Fluticasone Propionate Na Spr 16 Gm Btl NA 05/27/21 08:59 2 sprays DAILY MARIELLA Administration Potassium Chloride/Sodium Chloride 20 meq in 1,000 mls @ 70 mls/hr 04/27/21 09:00 04/29/21 08:24 Normal Saline W/20 Meq Kcl IV 05/27/21 08:59 100 mls/hr .[id number] MARIELLA Administration Ceftriaxone Sodium 2,000 mg/ 70 mls @ 100 mls/hr 04/27/21 13:45 04/29/21 08:24 Dextrose IV 05/07/21 13:44 100 mls/hr DAILY MARIELLA Administration Protocol Metoclopramide HCl 10 mg 04/27/21 09:00 04/27/21 08:37 Metoclopramide Hcl 10 Mg Tablet PO 05/27/21 08:59 10 mg QAM MARIELLA Administration Miscellaneous 1 ea 04/27/21 09:00 04/28/21 09:02 Lutera (28): Order Awaiting Action N/A 05/27/21 08:59 Not Given DAILY MARIELLA Morphine Sulfate 2 mg 04/27/21 05:46 04/28/21 18:25 Morphine Sulfate 2 Mg/Ml Carp IV 05/11/21 05:45 2 mg Q4 PRN Administration Pain (1,2,3,4,5) & Pre PT Oxycodone HCl 5 mg 04/27/21 13:28 04/29/21 08:47 Oxycodone Hcl Ir 5 Mg Tab (Immediate Release) PO 05/11/21 13:27 5 mg Q4H PRN Administration Pain Pantoprazole Sodium 40 mg 04/27/21 21:00 04/29/21 08:37 Pantoprazole 40 Mg Tab PO 05/27/21 20:59 40 mg BID MARIELLA Administration Past Medical History Medical History Boils Diabetes Frequent loose stools Past Surgical History Surgical History No significant past surgical history Social History Smoking Status: Never smoker Hx Alcohol Use: No Hx Substance Use: Yes (pt tested positive in ED but states "no") substance use type: marijuana Physical Exam Vital Signs Last Vital Signs Temp 36.8 C 04/29/21 07:00 Pulse 76 04/29/21 07:00 Resp 18 04/29/21 07:00 BP 124/85 04/29/21 07:00 Pulse Ox 98 04/29/21 07:00 Testing Laboratory Results 04/29/21 06:30 04/29/21 06:30 PT 10.1 Seconds (9.0-12.0) 04/26/21 19:40 INR 1.0 (0.9-1.1) 04/26/21 19:40 APTT 23.9 Seconds (21.0-31.0) 04/26/21 19:40 Hemoglobin A1c 14.4 % (4.5-5.6) H 04/27/21 08:32 Urine Color Yellow 04/26/21 22:00 Urine Appearance Cloudy (Clear) A 04/26/21 22:00 Urine pH 5.0 (4.5-7.5) 04/26/21 22:00 Ur Specific [place] 1.030 (1.000-1.030) 04/26/21 22:00 Urine Protein 1+ (Negative) H 04/26/21 22:00 Urine Glucose (UA) 3+ (Negative) H 04/26/21 22:00 Urine Ketones Trace (Negative) H 04/26/21 22:00 Urine Nitrite Negative (Negative) 04/26/21 22:00 Ur Leukocyte Esterase 1+ (Negative) H 04/26/21 22:00 Urine WBC (Auto) >30 /hpf (0-5) H 04/26/21 22:00 Urine RBC (Auto) 10-30 /hpf (0-4) H 04/26/21 22:00 U Hyaline Cast (Auto) 0 /lpf (0-5) 04/26/21 22:00 U Epithel Cells (Auto) 10-20 /lpf (0-5) H 04/26/21 22:00 Urine Bacteria (Auto) 3+ (Negative) H 04/26/21 22:00 Urine Test Negative (Negative) 04/26/21 22:00 04/26/21 22:00 Urine Culture - Preliminary Urine,Clean Catch Group B Beta Strep 04/27/21 11:05 WBC Smear - Final Stool Escherichia coli Shiga Toxins Test - Preliminary Stool Culture - Preliminary No Salmonella isolated to date, No Shigella isolated to date, No Campylobacter jejuni isolated to date. 04/29/21 04/29/21 04/29/21 07:38 06:29 04:34 POC Glucose 135 H 104 H 108 H 04/29/21 04/29/21 04/28/21 02:33 00:34 22:31 POC Glucose 98 110 H 112 H 04/26/21 04/26/21 22:20 22:00 Urine Test Negative POC Ur Test NEG Electrocardiogram Date: 04/29/2129-Apr-2021 05:34:09 [facility]-2 [place] ROUTINE RETRIEVAL Normal sinus rhythm Septal infarct (cited on or before 28-APR-2021) Abnormal ECG When compared with ECG of 28-APR-2021 06:39, No significant change was found
[2021-04-29] MEDS: INSULIN ASPART 100 UNITS/ML 3 ML PEN SC SCH ×4 (09:35→23:58)
[2021-04-29] MEDS: INSULIN REGULAR 250 UNITS in SODIUM CHLORIDE 0.9% 247.5 ML IV SCH (09:37)
[2021-04-29] MEDS ORDERED: LIDOCAINE 2% 2 ML VIAL/AMP(20MG/ML) INFIL ONE (10:37)
[2021-04-29] MEDS ORDERED: PROPOFOL IV EMULSION 10 MG/ML 20 ML VIAL IV ONE (10:37)
[2021-04-29] MEDS ORDERED: MIDAZOLAM HCL 1 MG/ML 2ML VIAL ONE (10:37)
--- NOTE | 2021-04-29 11:08 | GI REPORT ---
Patient Name: Sonia Diaz Procedure Date: 04/29/2021 10:31 AM Date of : 2000 Admit Type: Inpatient Age: 21 Gender: Female Attending MD: Bimal Watkins MD Procedure: Upper GI endoscopy Providers: Bimal Watkins MD Referring MD: Myron Jacome Indications: Suspected eosinophilic esophagitis Medicines: Monitored Anesthesia Care Complications: No immediate complications. Estimated blood loss: None. Estimated Blood Loss: Estimated blood loss: none. Procedure: Pre-Anesthesia Assessment: - Prior Anticoagulants: The patient has taken no previous anticoagulant or antiplatelet agents. - ASA Grade Assessment: II - A patient with mild systemic disease. After obtaining informed consent, the endoscope was passed under direct vision. Throughout the procedure, the patient's blood pressure, pulse, and oxygen saturations were monitored continuously. The Endoscope was introduced through the mouth, and advanced to the second part of duodenum. The upper GI endoscopy was accomplished without difficulty. The patient tolerated the procedure well. Findings: The examined esophagus was normal. Biopsies were obtained from the proximal and distal esophagus with cold forceps for histology of suspected eosinophilic esophagitis. Estimated blood loss: none. Diffuse mild inflammation characterized by erythema was found in the stomach. Biopsies were taken with a cold forceps for Helicobacter pylori testing. Estimated blood loss: none. The duodenal bulb and second portion of the duodenum were normal. Estimated blood loss: none. A small amount of food (residue) was found in the gastric antrum. Impression: - Normal esophagus. Biopsied. - Gastritis. Biopsied. Food in stomach, consistent with known diagnosis of gastroparesis - Normal duodenal bulb and second portion of the duodenum. Recommendation: - Resume previous diet today. - Await pathology results. - [facility]. Bimal Watkins MD 04/29/2021 11:08:18 AM This report has been signed electronically. Note Initiated On: 04/29/2021 10:31 AM Number of Addenda: 0 I attest to the content of the Intraoperative Record and orders documented therein, exceptions below {[id number]}
--- NOTE | 2021-04-29 11:51 | XCELERA ---
[id number]
--- NOTE | 2021-04-29 11:57 | Anesthesiology Progress Note ---
Date of Service April 29, 2021 Anesthesia Post Procedure Vital Signs Vital Signs: Temp Pulse Pulse Resp BP BP Pulse Ox 04/29/21 11:39 71 18 133/75 98 04/29/21 11:23 80 18 111/79 98 04/29/21 11:08 70 18 91/72 L 96 04/29/21 09:37 36.4 C L 80 16 129/82 97 04/29/21 07:00 36.8 C 76 18 124/85 98 04/29/21 06:21 73 04/29/21 02:54 36.8 C 73 18 102/66 97 04/28/21 22:47 37.1 C 77 18 102/66 98 04/28/21 22:19 74 04/28/21 19:31 36.7 C 81 18 111/73 98 04/28/21 18:57 37.1 C 76 20 126/82 98 04/28/21 16:24 36.8 C 75 16 122/83 98 04/28/21 14:06 88 Pain Intensity Bilateral Upper Abdomen: Pain Intensity: 8 Transfer of Care Handoff Completed per policy Notes Mental Status: alert / awake / arousable and participated in evaluation Patient Amnestic to Procedure: Yes Nausea / Vomiting: adequately controlled Pain: adequately controlled Airway Patency, RR, SpO2: stable & adequate BP & HR: stable & adequate Hydration State: stable & adequate Anesthetic Complications: no major complications apparent and Pt Satisfied with anesthetic care
[2021-04-29] MEDS ORDERED: INSULIN ASPART 100 UNITS/ML 3 ML PEN SC SCH (12:00)
--- NOTE | 2021-04-29 13:45 | Electrocardiogram Report ---
Test Reason : Blood Pressure : / mmHG Vent. Rate : 078 BPM Atrial Rate : 078 BPM P-R Int : 136 ms QRS Dur : 094 ms QT Int : 390 ms P-R-T Axes : 048 064 -14 degrees QTc Int : 444 ms Normal sinus rhythm Septal infarct (cited on or before 28-APR-2021) Abnormal ECG When compared with ECG of 28-APR-2021 06:39, No significant change was found Confirmed by Rob Altamirano ([id number]) on 04/29/2021 1:44:38 PM Referred By: REFERRED SELF Confirmed By:Rob Altamirano
--- NOTE | 2021-04-29 14:52 | Pharmacy Report ---
Pharmacy Glycemic Short Note 2 - Date of Service April 29, 2021 - Glycemic Short BSG Results (Last 24 hours): 04/28/21 04/28/21 04/28/21 14:30 15:30 16:30 Glucose 258 H POC Glucose 182 H 171 H 04/28/21 04/28/21 04/28/21 18:34 20:31 22:31 Glucose POC Glucose 174 H 151 H 112 H 04/29/21 04/29/21 04/29/21 00:34 02:33 04:34 Glucose POC Glucose 110 H 98 108 H 04/29/21 04/29/21 04/29/21 06:29 06:30 07:38 Glucose 110 H POC Glucose 104 H 135 H 04/29/21 12:06 Glucose POC Glucose 125 H OUTPATIENT ANTIDIABETIC REGIMEN: * Humalog 8 units TID with meals * A1c 14.4% 04/27/21 ASSESSMENT: 04/29/21 * Patient remained on insulin infusion overnight and eventually insulin infusion decreased to 1.1 units/hr this morning. Since patient now NPO and BSGs < 180 mg/dL will d/c insulin infusion. Give Lantus 24 units (1.1 units/hr x 24 hours). This is likely to be slightly less than what patient requires but since NPO do not want BSGs to be low. * Add overnight checks to ensure BSGs remain controlled. * For Novolog, start weight-based stress of 3 for now until insulin requirements better known. 04/28/21 * Patient started on IV insulin infusion last night for sustained high blood sugars in 200-300s, blood sugars well controlled since midnight. * Blood sugars at goal on drip, started Lantus to overlap, will DC drip when it "turns itself off" as listed in parameters below. * GI consult, re: gastroparesis, severe chronic diarrhea, need to rule out parasitic, bacterial infections, as well as autoimmune etiologies. stool studies and celiac testing pending. Could also be IBS-D. * Patient transferring to med/tele for cardiac monitoring. 04/27/21 * 21 year old female, PMH of seasonal allergies, diabetes, and gastroparesis, admitted with UTI on IV antibiotics. * Uncontrolled DM, 14.4% d/t noncompliance and insurance issues. Spoke w/ patient, she is now on her parent's insurance, but needs a new doctor. * She was on Basaglar at one time but then couldn't get it because of insurance issues. * Discussed Relion insulin from [employer] and using vials and syringes vs pens, patient states she prefers the pens * Started patient on bolus insulin with regular insulin, d/t gastroparesis, blood sugars elevated today, will tighten CF/CR, add basal, and titrate to goal blood sugar * CDE consult ordered PLAN FOR INPATIENT GLYCEMIC CONTROL: * Basal insulin * Lantus 24 units x 1 dose this morning, further dosing tomorrow morning * Bolus insulin * NovoLog per scale ACHS and overnight at 00,04 * Correction factor: 20 mg/dl/unit * Nutritional / Prandial insulin per carb ratio of 1 unit per 7 grams CHO consumed PLAN FOR DISCHARGE: * to be determined based on insurance options and needs endocrinology follow up * Could possibly use Relion 70/30 pens??
[2021-04-30] MEDS: INSULIN ASPART 100 UNITS/ML 3 ML PEN SC SCH ×3 (03:54→12:37)
[2021-04-30 06:58] LABS: Hematocrit (blood only) 38.9 % (37-47); Hemoglobin 12.8 g/dL (12.0-16.0); Mean Corpuscular Hemoglobin 28.2 pg (25-34); Mean Corpuscular Hgb Conc 32.9 g/dL (32-36); Mean Corpuscular Volume 85.7 fL (80-100); Mean Platelet Volume 12.4 fL (7.4-10.4); Platelet Count 199 K/uL (130-400); RDW Coefficient of Variation 13.1 % (11.5-14.5); RDW Standard Deviation 41.1 fL (36.4-46.3); Red Blood Count 4.54 M/uL (4.2-5.4)
[2021-04-30 07:28] LABS: BUN Creatinine Ratio 12.5 (10-20); Blood Urea Nitrogen 7 mg/dl (7-18); Carbon Dioxide 30 mmol/L (21-32); Chloride 105 mmol/L (98-107); Creatinine Clr Calc Pharmacy 184.2 ml/min; Est GFR (African American) > 150.0 ml/min; Est GFR (Non-African American) 133.9 ml/min; Glucose 148 mg/dl (70-99); Potassium 3.7 mmol/L (3.5-5.1); Sodium 138 mmol/L (136-145)
[2021-04-30] MEDS: INSULIN HUMAN REGULAR SC SCH (07:28)
--- NOTE | 2021-04-30 08:25 | Gastroenterology Progress Note ---
Date of Service April 30, 2021 Assessment & Plan (1) Gastroparesis: Plan: Patient with reported history of gastroparesis and uncontrolled diabetes type II. She has had previous work-up by GI at [facility]. These records were requested today. EGD yesterday by Dr. Watkins demonstrated diffuse mild inflammation in the stomach with negative biopsy and stool testing to date. Patient is feeling well this morning and has no specific GI complaints at this time. Please refer to supervising physician addendum for further recommendations. Admission and Anticipated Discharge Date Admission Date: April 27, 2021 Supervising Physician Co-Signing Physician Notes Pt discharged prior to being seen. Subjective The patient is resting in bed and eating her breakfast. Patient states she is feeling good this morning. Reports no bowel movement in two days but did have one this morning. States stool was formed to loose. Denies abdominal pain, nausea, vomiting, melena, hematochezia. States she would like to go home. 04/29/2021: EGD was performed by Dr. Watkins due to suspected eosinophilic esophagitis. Examined esophagus was normal with biopsies obtained; diffuse mild inflammation characterized by erythema found in the stomach with biopsies obtained; duodenal bulb and second portion of the duodenum were normal. Small amount of food (residue) found in the gastric antrum. She is a lifetime nonsmoker. Occasional alcohol intake. Denies recreational drug use including marijuana. She is unmarried and has no children. Lives in [place], [place]. She is a [employer] and works at [employer] in the At[employer]he[employer] department currently. Review of Systems Review of Systems: All systems reviewed & are unremarkable except as noted in Subjective Physical Exam Gastrointestinal (Abdomen): normal bowel sounds, soft, nontender, no hepatosplenomegaly Results & Data ([facility]) Vital Signs (Past 12 Hours) Vital Signs Temp Pulse Resp BP Pulse Ox 04/29/21 23:47 37.2 C 85 18 131/86 97 Laboratory Results - last 24 hr 04/26/21 04/26/21 04/29/21 19:40 22:20 12:06 WBC RBC Hgb Hct MCV MCH MCHC RDW Std Deviation RDW Coeff of Mil Plt Count MPV Sodium Potassium Chloride Carbon Dioxide Anion Gap BUN Creatinine Est Cr Clr Drug Dosing Est GFR ( Amer) Est GFR (Non-Af Amer) BUN/Creatinine Ratio Glucose POC Glucose 125 H Calcium U Marijuana THC Carboxy 363 H Drug Screen Comment SEE NOTE A. phagocytophilum DNA Negative 04/29/21 04/29/21 04/29/21 16:41 20:23 23:53 WBC RBC Hgb Hct MCV MCH MCHC RDW Std Deviation RDW Coeff of Mil Plt Count MPV Sodium Potassium Chloride Carbon Dioxide Anion Gap BUN Creatinine Est Cr Clr Drug Dosing Est GFR ( Amer) Est GFR (Non-Af Amer) BUN/Creatinine Ratio Glucose POC Glucose 107 H 129 H 133 H Calcium U Marijuana THC Carboxy Drug Screen Comment A. phagocytophilum DNA 04/30/21 04/30/21 04/30/21 03:19 06:31 06:31 WBC 7.60 RBC 4.54 Hgb 12.8 Hct 38.9 MCV 85.7 MCH 28.2 MCHC 32.9 RDW Std Deviation 41.1 RDW Coeff of Mil 13.1 Plt Count 199 MPV 12.4 H Sodium 138 Potassium 3.7 Chloride 105 Carbon Dioxide 30 Anion Gap 3.0 BUN 7 Creatinine 0.54 L Est Cr Clr Drug Dosing 184.2 Est GFR ( Amer) > 150.0 Est GFR (Non-Af Amer) 133.9 BUN/Creatinine Ratio 12.5 Glucose 148 H POC Glucose 130 H Calcium 9.0 U Marijuana THC Carboxy Drug Screen Comment A. phagocytophilum DNA 04/30/21 07:46 WBC RBC Hgb Hct MCV MCH MCHC RDW Std Deviation RDW Coeff of Mil Plt Count MPV Sodium Potassium Chloride Carbon Dioxide Anion Gap BUN Creatinine Est Cr Clr Drug Dosing Est GFR ( Amer) Est GFR (Non-Af Amer) BUN/Creatinine Ratio Glucose POC Glucose 181 H Calcium U Marijuana THC Carboxy Drug Screen Comment A. phagocytophilum DNA
[2021-04-30] MEDS: PANTOprazole 40 MG TAB PO SCH (09:00)
[2021-04-30] MEDS ORDERED: INSULIN GLARGINE SOLOSTAR 100 UNITS/ML 3 ML PEN SC ONE (09:00)
[2021-04-30] MEDS: ENOXAPARIN INJ 40 MG/0.4 ML SYR SQ SCH (09:00)
[2021-04-30] MEDS: CETIRIZINE HCL 10 MG TABLET PO SCH (09:00)
[2021-04-30] MEDS: FLUTICASONE PROPIONATE NA SPR 16 GM BTL SCH (09:03)
[2021-04-30] MEDS: cefTRIAXone SODIUM 2,000 MG in DEXTROSE 5% 50 ML IV SCH (09:13)
[2021-04-30] MEDS: METOCLOPRAMIDE HCL 10 MG TABLET PO SCH (09:52)
--- NOTE | 2021-04-30 11:14 | Pharmacy Report ---
Pharmacy Glycemic Short Note 2 - Date of Service April 30, 2021 - Glycemic Short BSG Results (Last 24 hours): 04/29/21 04/29/21 04/29/21 12:06 16:41 20:23 Glucose POC Glucose 125 H 107 H 129 H 04/29/21 04/30/21 04/30/21 23:53 03:19 06:31 Glucose 148 H POC Glucose 133 H 130 H 04/30/21 07:46 Glucose POC Glucose 181 H OUTPATIENT ANTIDIABETIC REGIMEN: * Humalog 8 units TID with meals * A1c 14.4% 04/27/21 ASSESSMENT: 04/30/21 * Patient's BSGs yesterday after insulin drip turned off were [phone] mg/dL. Fasting today was 181 mg/dL (POC). * Patient received 24 units of basal and 11 units of bolus yesterday (total of 35 units). * Fasting is reasonable; will increase basal insulin by 10% to 26 units since eating. * Continue weight-based stress of 3 Novolog as appears affective. 04/29/21 * Patient remained on insulin infusion overnight and eventually insulin infusion decreased to 1.1 units/hr this morning. Since patient now NPO and BSGs < 180 mg/dL will d/c insulin infusion. Give Lantus 24 units (1.1 units/hr x 24 hours). This is likely to be slightly less than what patient requires but since NPO do not want BSGs to be low. * Add overnight checks to ensure BSGs remain controlled. * For Novolog, start weight-based stress of 3 for now until insulin requirements better known. 04/28/21 * Patient started on IV insulin infusion last night for sustained high blood sugars in 200-300s, blood sugars well controlled since midnight. * Blood sugars at goal on drip, started Lantus to overlap, will DC drip when it "turns itself off" as listed in parameters below. * GI consult, re: gastroparesis, severe chronic diarrhea, need to rule out parasitic, bacterial infections, as well as autoimmune etiologies. stool studies and celiac testing pending. Could also be IBS-D. * Patient transferring to med/tele for cardiac monitoring. 04/27/21 * 21 year old female, PMH of seasonal allergies, diabetes, and gastroparesis, admitted with UTI on IV antibiotics. * Uncontrolled DM, 14.4% d/t noncompliance and insurance issues. Spoke w/ patient, she is now on her parent's insurance, but needs a new doctor. * She was on Basaglar at one time but then couldn't get it because of insurance issues. * Discussed Relion insulin from [employer] and using vials and syringes vs pens, patient states she prefers the pens * Started patient on bolus insulin with regular insulin, d/t gastroparesis, blood sugars elevated today, will tighten CF/CR, add basal, and titrate to goal blood sugar * CDE consult ordered PLAN FOR INPATIENT GLYCEMIC CONTROL: * Basal insulin * Lantus 26 units x 1 dose this morning, further dosing tomorrow morning * Bolus insulin * NovoLog per scale ACHS and overnight at 00,04 * Correction factor: 20 mg/dl/unit * Nutritional / Prandial insulin per carb ratio of 1 unit per 7 grams CHO consumed PLAN FOR DISCHARGE: * Spoke with school vocational educator regarding discharge plan. * Lantus 25 units daily in the morning * Novolog CR of 7 and CF of 25 for BSG over 150 mg/dL. * Recommend close follow-up.
--- NOTE | 2021-04-30 15:23 | Discharge Summary ---
Date of Service April 30, 2021 Principal Diagnosis Palpitations UTI Poorly controlled DM Discharge Exam Constitutional WD/WN, vitals as above Eyes PERRL, conjunctivae normal, anicteric sclerae Neck trachea midline, no thyromegaly Respiratory normal respiratory effort, lungs clear to auscultation Cardiovascular RRR, no murmur, no edema Gastrointestinal (Abdomen) normal bowel sounds, soft, nontender, no hepatosplenomegaly Musculoskeletal no cyanosis or clubbing, extremities motor strength 5/5 Skin no rashes, warm and dry Neurologic patellar DTR's 2+ bilat, sensation intact and PERRL, EOMI, accommodation nl, no face palsy, no dysarthria Psychiatric A+Ox3, euthymic affect Discharge Data Allergies Allergy/AdvReac Type Severity Reaction Status Date / Time Bugjackie Allergy Intermediate Swelling Uncoded 04/26/21 21:39 and hives Consultations 04/26/21 23:40 ED Decision to Admit Stat 04/28/21 08:16 Consult Gastroenterology Routine 04/28/21 15:40 Consult Health Information Management Routine Procedures Performed Operation Date: 04/29/21 17:00 Actual Procedures p EGD Biopsy Cytology - Bimal Watkins MD Ordered Studies 04/27/21 01:02 CT abd pelvis wo con Urgent 04/28/21 08:20 CT chest diagnostic w con Routine 04/28/21 11:26 CT head/brain wo con Urgent Diabetes Follow up Diabetes Follow-up Needed for HgbA1c >9% Hospital Course (1) Palpitations: troponin negative x 2 ECHO left ventricular systolic function normal, no regional wall motion abnormalities, EF 60-65, no valvular pathology. no issues while on telemetry no further sensation per patient (2) UTI (urinary tract infection): urine culture grew out group B strep treated with Rocephin IV while admitted discharge on Keflex for three more days (3) Diabetes: Insulin requiring since age 11 lack of insurance has made treatment challenging Pharmacy consulted for glycemic management -- here is the following discharge plan Diabetes: see the plan outlined below for Lantus and Humalog, developed by our diabetes pharmacist who works with endocrinology Lantus 25 units daily in AM Humalog 1 unit for every 7 grams of carbohydrate you consume + sliding scale: 150 or less - No extra 151 175 - + 1 unit 176 200 - + 2 units 201 225 - + 3 units 226 250 - + 4 units 251 275 - + 5 units 276 300 - + 6 units 301 325 - + 7 units 326 350 - + 8 units 351 375 - + 9 units 376 400 - + 10 units Above 400 - + 11 units and call provider she will follow sugars closely, plans to follow up with endocrinology in May (4) Headache: CT head --> NO ACUTE INTRACRANIAL FINDINGS Tylenol prn headache ?Rebound from opiate (5) Hypokalemia: replete and replete magnesium (6) Abdominal pain: Secondary to UTI as well as possible diarrhea illness as seen on CTA/P above Improving with tx UTI PPI increased to BID -- Avoid NSAIDs -- had been using ibuprofen daily for over past month Stool studies sent, celila panel pending Tylenol, morphine prn pain -- will add oxycodone prn to have middle level of pain control if IV not needed (7) Gastroparesis: Chronically on metoclopramide now on hold Patient with a history of reportedly eosinophilic esophagitis EGD performed 04/29 esophagus appeared normal biopsies taken there was mild gastritis and food in her stomach consistent with her history of gastroparesis. (8) Tick bite: X2 in past month Anaplasmosis smear, Lyme antibody testing negative Anaplasmosis PCR negative (9) Frequent loose stools: stool studies pending, Giardia, cdiff as above holding Reglan DVT Prophylaxis Lovenox SQ while inpatient Total Time Total Time Spent Total Time Spent (In Minutes): 36 Discharge Plan Discharge Items Patient Disposition: Home - Self-Care Reason For Visit: UTI Discharge Diagnosis: UTI - Group B streptococcus Diabetes - insulin dependent Gastroparesis Palpitations - no issues on telemetry, normal echo Condition on Discharge: Good Goals: follow up with new PCP on Thursday follow diabetes instructions below and follow up with endocrinology end of May Activity: Resume your previous activity Driving/Machine Use: No limitations Weightbearing: Full weightbearing Non-emergency contact: Primary Care Provider Call non-emergency contact if: you have any medication questions and your symptoms worsen Follow-up/Referrals: Cristo Purvis MD [Physician] - (has appointment 06/04/21) Munira Altamirano PA-C [Physician Manager Registration] - 05/06/21 2:00 pm (Appointment has been arranged with Primary Care at [facility] at your request. If you cannot make this appointment please call office to reschedule. Thank you!) Diet: Carb Count or DM1 Addtl Attending Provider Instructions: Medications: see the list for new medications UTI: urine culture grew out group B strep, treat with Rocephin IV while admitted, change to cephalexin for 3 more days Palpitations: no arrhythmia on monitor, normal echocardiogram of the heart Abdominal pain: EGD with mild diffuse inflammation and some food in stomach (consistent with gastroparesis) take Protonix 40mg twice a day for a month then go down to once a day Diabetes: see the plan outlined below for Lantus and Humalog, developed by our diabetes pharmacist who works with endocrinology Lantus 25 units daily in AM Humalog 1 unit for every 7 grams of carbohydrate you consume + sliding scale: 150 or less - No extra 151 175 - + 1 unit 176 200 - + 2 units 201 225 - + 3 units 226 250 - + 4 units 251 275 - + 5 units 276 300 - + 6 units 301 325 - + 7 units 326 350 - + 8 units 351 375 - + 9 units 376 400 - + 10 units Above 400 - + 11 units and call provider Pending Studies at Discharge: No Stand-Alone Forms: [facility], Work/School Release, Smoking Cessation Medications and DC Order Prescriptions: New cetirizine 10 mg Tablet 10 mg PO QAM 30 Days Qty: 30 RF: 3 pantoprazole 40 mg Tablet,Delayed Release (Dr/Ec) 40 mg PO BID 30 Days Qty: 60 RF: 1 Lantus Solostar U-100 Insulin 100 unit/mL (3 mL) insulin pen 25 unit subcut QAM Qty: 15 RF: 3 insulin lispro [Humalog KwikPen Insulin] 100 unit/mL insulin pen 1 unit subcut UD 30 Days Qty: 3 RF: 3 (DME) pen needle, diabetic 32 gauge x 3/16" needle See Rx Instructions .Route Qty: 50 RF: 3 (DME) OneTouch Verio test strips Strip See Rx Instructions .Route Qty: 100 RF: 3 (DME) lancets [OneTouch Delica Lancets] 33 gauge misc See Rx Instructions .Route Qty: 100 RF: 3 Continued levonorgestrel-ethinyl estrad [Lutera (28)] 0.1-20 mg-mcg Tablet 1 tab PO QAM RF: 0 fluticasone propionate 50 mcg/actuation spray,suspension 2 spray INTRANASAL DAILY RF: 0 metoclopramide HCl 10 mg tablet 10 mg PO QAM RF: 0 Discontinued insulin lispro [Humalog KwikPen Insulin] 100 unit/mL insulin pen 8 unit subcut BID RF: 0 omeprazole 40 mg capsule,delayed release(DR/EC) 40 mg PO QAM RF: 0 Discharge Orders: Discharge Order (Routine); Ordered 04/30/21 Ordered By: Richard Hoffman/Other Patient Handouts: A1C, High Blood Sugar (Hyperglycemia), Managing Type 2 Diabetes Admission Data Admit Date/Time: 04/27/21 17:04 Attending Provider: Richard Sanches Admit Provider: Hernando Lima I. Primary Care Provider: Tiara Tucker Other Providers: Burt Ferguson ; Bimal Watkins Other Interventions: Discharge Summary Assessment (RN) Last Done: 04/30/21 15:22 Coding Level of Care Code D/C DAY MANAGEMENT >30 MINS Diagnoses Palpitations R00.2 UTI (urinary tract infection) N39.0 Diabetes E11.9 Headache R51.9 Hypokalemia E87.6 Abdominal pain R10.9 Gastroparesis K31.84 Tick bite W57.XXXA Frequent loose stools R19.7
[2021-04-30 23:27] LABS: IgA Serum 110 mg/dL (47-310); Tis Trans IgA 1 U/mL
[2021-05-01 14:36] LABS: Adrenocorticotropic Hormone 23 pg/mL (6-50); Angiotensin Converting Enzyme 18 U/L (9-67)
== END 2021-04-30 15:55 | disposition home or self-care (01) | DRG 690 ==
LOC: ED 17:38 → 3E 17:38 → SUATTDRO 04-27 04:20 → 3E 04-27 05:30 → SUATTDRO 04-27 17:04 → 3E 04-27 20:24 → 2N 04-28 14:02
DX: E11.649 Type 2 diabetes mellitus with hypoglycemia without coma; Z86.16 Personal history of COVID-19; N39.0 Urinary tract infection, site not specified; R51.9 Headache, unspecified; K21.9 Gastro-esophageal reflux disease without esophagitis; R17 Unspecified jaundice; J30.2 Other seasonal allergic rhinitis; R00.2 Palpitations; Z79.4 Long term (current) use of insulin; B95.1 Streptococcus, group B, as the cause of diseases classified elsewhere; E87.6 Hypokalemia; K29.70 Gastritis, unspecified, without bleeding; E11.43 Type 2 diabetes mellitus with diabetic autonomic (poly)neuropathy

== ENCOUNTER 2021-07-15 23:20 | Inpatient (IN) ==
[2021-07-15] MEDS ORDERED: SODIUM CHLORIDE 0.9% 1000ML 1,000 ML IV ONE (23:57)
[2021-07-16 00:22] LABS: Alanine Aminotransferase 36 U/L (12-78); Albumin Level 3.6 gm/dl (3.4-5.0); Aspartate Aminotransferase 16 U/L (15-37); BUN Creatinine Ratio 18.8 (10-20); Blood Urea Nitrogen 14 mg/dl (7-18); Calcium 9.2 mg/dl (8.5-10.1); Carbon Dioxide 26 mmol/L (21-32); Chloride 107 mmol/L (98-107); Creatinine Clr Calc Pharmacy 143.2 ml/min; Est GFR (African American) 135.5 ml/min; Est GFR (Non-African American) 116.9 ml/min; Glucose 122 mg/dl (70-99); Magnesium 1.7 mg/dl (1.8-2.4); Sodium 141 mmol/L (136-145)
[2021-07-16 00:33] LABS: Albumin Globulin Ratio 0.8 (0.9-2); Alkaline Phosphatase 74 U/L (45-117); Bilirubin,Total 0.2 mg/dl (0.2-1); Globulin 4.3 gm/dl (2.5-4.0); Total Protein 7.9 gm/dl (6.4-8.2); Troponin I < 0.015 ng/ml (0-0.045)
[2021-07-16 00:33] LABS: Hemoglobin 13.3 g/dL (12.0-16.0); Mean Corpuscular Hemoglobin 28.3 pg (25-34); Mean Corpuscular Hgb Conc 33.3 g/dL (32-36); Mean Corpuscular Volume 85.1 fL (80-100); Mean Platelet Volume 11.8 fL (7.4-10.4); Platelet Count 257 K/uL (130-400); RDW Coefficient of Variation 13.2 % (11.5-14.5); RDW Standard Deviation 41.3 fL (36.4-46.3); White Blood Count 24.16 K/uL (4.8-10.8)
[2021-07-16 00:34] LABS: Pregnancy Test, Serum Negative (Negative)
[2021-07-16] MEDS ORDERED: D5W AND NSS 1,000 ML IV SCH (01:00)
[2021-07-16 01:13] LABS: Basophils # (auto) 0.02 K/uL (0-0.2); Basophils % (auto) 0.1 %; Eosinophils # (auto) 0.06 K/uL (0-0.5); Eosinophils % (auto) 0.2 %; Immature Granulocytes # (auto) 0.06 K/uL (0.00-0.02); Immature Granulocytes % (auto) 0.2 %; Lymphocytes # (auto) 1.91 K/uL (1.2-3.4); Lymphocytes % (auto) 7.9 %; Monocytes # (auto) 1.97 K/uL (0.11-0.59); Monocytes % (auto) 8.2 %; Neutrophils # (auto) 20.14 K/uL (1.4-6.5); Neutrophils % (auto) 83.4 %; RBC Morphology Unremarkable
[2021-07-16 03:58] LABS: Appearance Urine Clear (Clear); Bacteria Urine Automated Negative (Negative); Bilirubin Urine Negative (Negative); Blood Urine Negative (Negative); Color Urine Yellow; Epithelial Cell Urine Auto >30 /lpf (0-5); Glucose Urine UA Negative (Negative); Ketones Urine Negative (Negative); Leukocyte Esterase Urine 2+ (Negative); Nitrite Urine Negative (Negative); Protein Urine Negative (Negative); Specific Gravity Urine 1.016 (1.000-1.030); Urobilinogen Urine Negative (Negative); WBC Urine Automated >30 /hpf (0-5); pH Urine 5.5 (4.5-7.5)
[2021-07-16 04:12] LABS: Cast Urine Automated 0 /lpf (0-5); RBC Urine Automated 0-4 /hpf (0-4)
--- NOTE | 2021-07-16 04:32 | History & Physical Report ---
Date of Service July 16, 2021 Assessment & Plan (1) Type 1 diabetes, uncontrolled, with gastroparesis: Plan: Patient with hypoglycemia prior to arrival. Hypothermic initially, now improved. A1C=14.4 -Continue D5 NSS at 125mL/hr -Check BSG q 2 hours -Change Lantus to 12u BID -ISS -Glycemic management consultation appreciated (2) Irritable bowel syndrome with diarrhea: Plan: Chronic -Continue Eloxadoline 75mg po BID. Patient may take home medication (3) Gastroparesis: Plan: Chronic -Continue Erythromycin 250mg po TID -Zofran PRN -Protonix 40mg po BID (4) Anxiety: Plan: Chronic -Continue escitalopram History of Present Illness Chief Complaint: Hypoglycemia Primary Care Provider: Munira Altamirano PA-C Sonia Diaz is a 21yo female with history of poorly controlled Type I DM on Lantus 25u qAM, ISS with 1u/8g CHO consumed(A1C=14.4) presenting with hypoglycemia. Patient states that she was up all night last night with nausea, vomiting and abdominal pain - feels that her symptoms are similar to her gastroparesis. This AM when she woke up her blood sugar was elevated at 222. She ate some turkey and cheese for breakfast and took her Lantus at around 11:00. She ate lunch consisting of yogurt, peanut butter, pretzels and goldfish crackers and took 4 u of Novolog. She reports her blood sugar starting to drop around 14:00. She is unaware of her hypoglycemia. She was at work when her Dexcom beeped "low" at 40. EMS was called and her blood sugar on arrival was reportedly 19. She was administered glucose and brought to [facility]. Initially hypothermic with rectal temp of 34, now improved. Patient presently feeling well. She reports chronic diarrhea and abdominal pain. Otherwise, no new complaints. Has had episodes of hypoglycemia before. Has an appointment to see Endocrinology later this month. ER Course: D5NSS at 125mL/hr Allergies Allergy/AdvReac Type Severity Reaction Status Date / Time [place] Bugs Allergy Intermediate Swelling Uncoded 07/16/21 00:09 and hives Home Medications Medication Instructions Recorded Confirmed Type levonorgestrel-ethinyl estradiol 1 tab PO QAM 07/13/19 07/16/21 History 0.1 mg-20 mcg tablet (Lutera (28)) fluticasone propionate 50 2 spray INTRANASAL DAILY PRN 04/26/21 07/16/21 History mcg/actuation nasal spray,suspension blood sugar diagnostic (OneTouch #100 ea 04/30/21 07/12/21 Rx Verio test strips) cetirizine 10 mg tablet 10 mg PO QAM 30 Days #30 tab 04/30/21 07/16/21 Rx lancets 33 gauge (OneTouch Delica #100 ea 04/30/21 07/12/21 Rx Lancets) pantoprazole 40 mg tablet,delayed 40 mg PO BID 30 Days #60 tab 04/30/21 07/16/21 Rx release pen needle, diabetic 32 gauge x #50 ea 04/30/21 07/12/21 Rx 3/16" blood-glucose meter,continuous #1 ea 05/23/21 07/12/21 Rx (Dexcom G6 [employer]) blood-glucose sensor (Dexcom G6 #3 ea 05/23/21 07/12/21 Rx Sensor) blood-glucose transmitter (Dexcom #1 ea 05/23/21 07/12/21 Rx G6 Transmitter) insulin glargine 100 unit/mL (3 25 unit SUBCUT QAM #15 ml 05/24/21 07/16/21 Rx mL) subcutaneous pen (Lantus Solostar U-100 Insulin) escitalopram oxalate 20 mg tablet 20 mg PO DAILY #30 tab 05/28/21 07/16/21 Rx (Lexapro) Medical Marijuana 1 dose INHALATION UD PRN 06/12/21 07/16/21 History eluxadoline 75 mg tablet (Viberzi) 75 mg PO BID #60 tab 07/12/21 07/16/21 Rx erythromycin 250 mg tablet 250 mg PO TIDM #90 tab 07/12/21 07/16/21 Rx insulin lispro 100 unit/mL 0 unit SUBCUT DIRECTED 07/16/21 07/16/21 History subcutaneous pen (Humalog KwikPen (U-100) Insulin) ondansetron 4 mg disintegrating 4 mg PO TID PRN 07/16/21 07/16/21 History tablet Past Med/Surg History Medical History Anxiety and depression Diabetes mellitus type 1 Gastritis Gastroparesis Hx of diabetic retinopathy IBS (irritable bowel syndrome) Surgical History H/O eye surgery History of colonoscopy History of ear surgery History of esophagogastroduodenoscopy (EGD) History of myringotomy History of tonsillectomy [place] teeth removed Family History Mother Family history of diabetes mellitus Grandmother (Maternal) Family history of diabetes mellitus Other Breast cancer Myocardial infarction No family history of adverse response to anesthesia Ovarian cancer Prostate cancer Denies family history of Colorectal cancer Social History Smoking Status: Never smoker Second Hand Exposure: No; Hx Alcohol Use: No Hx Substance Use: Yes (pt tested positive in ED but states "no") Last Used Substance Other:: ONLY RX [facility] Preferred Language: Moroccan Communication Ability: Effective Client Portfolio Manager Required: No Beliefs That Will Affect Care: None Current Living Situation: Parent Current Living Situation Comment: LIVES WITH PARENTS Feels Safe at Home: Yes Dental Care, Regularly: Yes Physical Activity Frequency: 5-6 Times per Week Assistive Devices: None Review of Systems Review of Systems: All systems reviewed & are unremarkable except as noted in HPI & below Physical Exam Physical Exam: General: patient resting comfortably, NAD, non-toxic in appearance, AA&O x 4 Skin: warm, dry, intact, no rashes or lesions HEENT: NC/AT, PERRL, EOMI, anicteric sclera, conjunctiva without injection, external ear normal to inspection and nontender, nares patent, moist mucus membranes, dentition intact, no oropharyngeal lesions, neck supple, trachea midline, no LAD, no thyromegaly, no JVD Heart: +S1/S2, regular, no m/r/g Lungs: equal air entry bilaterally, no rales/rhonchi/wheezes Abd: +BS, soft, NT/ND, no masses/organomegaly/ascites Ext: warm, 2+ pulses in UE/LE bilaterally, no clubbing/cyanosis or edema Neuro: nonfocal, patient AA&O x 4, speech intact, no facial droop, moving all extremities on command with equal strength 5/5 Results & Data Results & Data ([facility]) Vital Signs (Past 12 Hours) Vital Signs Temp Pulse Resp BP Pulse Ox 07/16/21 03:46 36.7 C 07/16/21 03:01 87 21 130/83 97 07/16/21 01:53 36.5 C 07/16/21 01:05 34.4 C L 07/16/21 00:29 34.1 C L 07/15/21 23:39 72 23 125/85 07/15/21 23:30 67 16 125/85 99 Laboratory Results Laboratory Results WBC 24.16 K/uL (4.8-10.8) H 07/16/21 00:23 RBC 4.70 M/uL (4.2-5.4) 07/16/21 00:23 Hgb 13.3 g/dL (12.0-16.0) 07/16/21 00:23 Hct 40.0 % (37-47) 07/16/21 00:23 MCV 85.1 fL (80-100) 07/16/21 00:23 MCH 28.3 pg (25-34) 07/16/21 00:23 MCHC 33.3 g/dL (32-36) 07/16/21 00:23 RDW Std Deviation 41.3 fL (36.4-46.3) 07/16/21 00:23 RDW Coeff of Mil 13.2 % (11.5-14.5) 07/16/21 00:23 Plt Count 257 K/uL (130-400) 07/16/21 00:23 MPV 11.8 fL (7.4-10.4) H 07/16/21 00:23 Immature Gran % (Auto) 0.2 % 07/16/21 00:23 Neut % (Auto) 83.4 % 07/16/21 00:23 Lymph % (Auto) 7.9 % 07/16/21 00:23 [place] % (Auto) 8.2 % 07/16/21 00:23 Eos % (Auto) 0.2 % 07/16/21 00:23 Baso % (Auto) 0.1 % 07/16/21 00:23 Neut # (Auto) 20.14 K/uL (1.4-6.5) H 07/16/21 00:23 Lymph # (Auto) 1.91 K/uL (1.2-3.4) 07/16/21 00:23 [place] # (Auto) 1.97 K/uL (0.11-0.59) H 07/16/21 00:23 Eos # (Auto) 0.06 K/uL (0-0.5) 07/16/21 00:23 Baso # (Auto) 0.02 K/uL (0-0.2) 07/16/21 00:23 Immature Gran # (Auto) 0.06 K/uL (0.00-0.02) H 07/16/21 00:23 RBC Morphology Unremarkable 07/16/21 00:23 Sodium 141 mmol/L (136-145) 07/15/21 23:43 Potassium 4.0 mmol/L (3.5-5.1) 07/15/21 23:43 Chloride 107 mmol/L (98-107) 07/15/21 23:43 Carbon Dioxide 26 mmol/L (21-32) 07/15/21 23:43 Anion Gap 8.0 (3-11) 07/15/21 23:43 BUN 14 mg/dl (7-18) 07/15/21 23:43 Creatinine 0.73 mg/dl (0.6-1.2) 07/15/21 23:43 Est Cr Clr Drug Dosing 143.2 ml/min 07/15/21 23:43 Est GFR ( Amer) 135.5 ml/min 07/15/21 23:43 Est GFR (Non-Af Amer) 116.9 ml/min 07/15/21 23:43 BUN/Creatinine Ratio 18.8 (10-20) 07/15/21 23:43 Glucose 122 mg/dl (70-99) H 07/15/21 23:43 POC Glucose 142 mg/dl (70-99) H 07/15/21 23:55 Calcium 9.2 mg/dl (8.5-10.1) 07/15/21 23:43 Magnesium 1.7 mg/dl (1.8-2.4) L 07/15/21 23:43 Total Bilirubin 0.2 mg/dl (0.2-1) 07/15/21 23:43 AST 16 U/L (15-37) 07/15/21 23:43 ALT 36 U/L (12-78) 07/15/21 23:43 Alkaline Phosphatase 74 U/L (45-117) 07/15/21 23:43 Troponin I < 0.015 ng/ml (0-0.045) 07/15/21 23:43 Total Protein 7.9 gm/dl (6.4-8.2) 07/15/21 23:43 Albumin 3.6 gm/dl (3.4-5.0) 07/15/21 23:43 Globulin 4.3 gm/dl (2.5-4.0) H 07/15/21 23:43 Albumin/Globulin Ratio 0.8 (0.9-2) L 07/15/21 23:43 TSH 3.130 uIu/ml (0.300-4.500) 07/15/21 23:43 HCG, Qual Negative (Negative) 07/15/21 23:43 Urine Color Yellow 07/16/21 03:47 Urine Appearance Clear (Clear) 07/16/21 03:47 Urine pH 5.5 (4.5-7.5) 07/16/21 03:47 Ur Specific [place] 1.016 (1.000-1.030) 07/16/21 03:47 Urine Protein Negative (Negative) 07/16/21 03:47 Urine Glucose (UA) Negative (Negative) 07/16/21 03:47 Urine Ketones Negative (Negative) 07/16/21 03:47 Urine Blood Negative (Negative) 07/16/21 03:47 Urine Nitrite Negative (Negative) 07/16/21 03:47 Urine Bilirubin Negative (Negative) 07/16/21 03:47 Urine Urobilinogen Negative (Negative) 07/16/21 03:47 Ur Leukocyte Esterase 2+ (Negative) H 07/16/21 03:47 Urine WBC (Auto) >30 /hpf (0-5) H 07/16/21 03:47 Urine RBC (Auto) 0-4 /hpf (0-4) 07/16/21 03:47 U Hyaline Cast (Auto) 0 /lpf (0-5) 07/16/21 03:47 U Epithel Cells (Auto) >30 /lpf (0-5) H 07/16/21 03:47 Urine Bacteria (Auto) Negative (Negative) 07/16/21 03:47 Urine Yeast Budding (None Prsent) A 07/16/21 03:47 COVID-19 Eval Order Covid19 at [facility] 07/16/21 01:08 SARS-CoV-2 (PCR) NEGATIVE (Negative) 07/16/21 01:08 PG Care Time/CCT Total # of Minutes Spent Total Time Spent with Patient: Total time spent is greater than 50% in coordination of care (as documented) at patient's floor/unit and/or counseling patient: Coding Level of Care Code 38627 Initial Inpt Care Lvl 3 Diagnoses Irritable bowel syndrome with diarrhea K58.0 Gastroparesis K31.84 Type 1 diabetes, uncontrolled, with gastroparesis E10.43; K31.84; E10.65 Anxiety F41.9
[2021-07-16] MEDS ORDERED: PHARMACY GLYCEMIC MGMT CONSULT PRN (06:28)
[2021-07-16] MEDS ORDERED: FLUTICASONE PROPIONATE NA SPR 16 GM BTL PRN (06:28)
[2021-07-16] MEDS ORDERED: GLUCAGON FOR INJ 1 MG VIAL SQ PRN (06:28)
[2021-07-16] MEDS ORDERED: GLUCOSE 10 TABS/TUBE PO PRN (06:28)
[2021-07-16] MEDS ORDERED: CARBOHYDRATES FOR HYPOGLYCEMIA PO PRN (06:28)
[2021-07-16] MEDS ORDERED: GLUCOSE 40% GEL 15 GM TUBE PO PRN (06:28)
[2021-07-16] MEDS ORDERED: ERYTHROMYCIN 250 MG TABEC PO SCH (08:00)
[2021-07-16] MEDS ORDERED: MAGNESIUM SULFATE / D5W 1 GM/100 ML BAG IV ONE (08:15)
--- NOTE | 2021-07-16 08:56 | Electrocardiogram Report ---
Test Reason : Blood Pressure : / mmHG Vent. Rate : 086 BPM Atrial Rate : 086 BPM P-R Int : 140 ms QRS Dur : 096 ms QT Int : 396 ms P-R-T Axes : 038 052 016 degrees QTc Int : 473 ms Normal sinus rhythm When compared with ECG of 29-APR-2021 05:34, No significant change was found Confirmed by Miguel Colin ([id number]) on 07/16/2021 8:56:23 AM Referred By: REFERRED SELF Confirmed By:Mio Colin
[2021-07-16] MEDS ORDERED: INSULIN GLARGINE SOLOSTAR 100 UNITS/ML 3 ML PEN SC SCH (09:00)
[2021-07-16] MEDS: CETIRIZINE HCL 10 MG TABLET PO SCH (09:30)
[2021-07-16] MEDS: PANTOprazole 40 MG TAB PO SCH ×2 (09:31→20:16)
[2021-07-16] MEDS: INSULIN ASPART 100 UNITS/ML 3 ML PEN SC SCH ×4 (09:35→20:16)
[2021-07-16 10:11] LABS: BUN Creatinine Ratio 20.7 (10-20); Blood Urea Nitrogen 12 mg/dl (7-18); Calcium 8.5 mg/dl (8.5-10.1); Carbon Dioxide 26 mmol/L (21-32); Chloride 106 mmol/L (98-107); Est GFR (African American) > 150.0 ml/min; Est GFR (Non-African American) 130.8 ml/min; Glucose 201 mg/dl (70-99); Lipase 123 U/L (73-393); Potassium 4.2 mmol/L (3.5-5.1); Sodium 138 mmol/L (136-145)
[2021-07-16] MEDS: ONDANSETRON INJ 2 MG/ML 2 ML VIAL IV PRN (12:10)
[2021-07-16 12:26] LABS: BUN Creatinine Ratio 16.7 (10-20); Calcium 8.9 mg/dl (8.5-10.1); Creatinine Clr Calc Pharmacy 145.8 ml/min; Est GFR (African American) 143.9 ml/min; Est GFR (Non-African American) 124.2 ml/min; Magnesium 1.9 mg/dl (1.8-2.4); Potassium 4.3 mmol/L (3.5-5.1)
[2021-07-16] MEDS ORDERED: OPTIRAY 320 100ml IV ONE (12:49)
--- NOTE | 2021-07-16 13:09 | Pharmacy Report ---
Pharmacy Glycemic Short Note 2 - Date of Service July 16, 2021 - Glycemic Short BSG Results (Last 24 hours): 07/15/21 07/15/21 07/16/21 23:43 23:55 04:55 Glucose 122 H POC Glucose 142 H 191 H 07/16/21 07/16/21 07/16/21 06:22 08:19 09:33 Glucose 201 H POC Glucose 216 H 200 H 07/16/21 07/16/21 07/16/21 10:21 11:48 12:23 Glucose 209 H POC Glucose 215 H 178 H OUTPATIENT ANTIDIABETIC REGIMEN: * Lantus 25 units qAM * Humalog with CR of 8 ASSESSMENT: * Ms Diaz is a 21 y/o F with a PMH of T1DM who presents with hypoglycemia, N/V. * BSGs while at hospital were 142-191-216 mg/dL. Patient has decreased PO intake. * Lantus with 20% reduction give this morning due to decreased PO intake. Scale for tomorrow based upon BSG. * Novolog that was previously effective chosen. PLAN FOR INPATIENT GLYCEMIC CONTROL: * Basal insulin * Lantus 20 units SQ daily (25 units if BSG > 180 mg/dL) * Bolus insulin * NovoLog per scale ACHS or Q6hrs while NPO * Goal Range: Low 110 mg/dL - High 140 mg/dL * Correction Factor: 20 mg/dL/unit * Nutritional / Prandial insulin per carb ratio of 1 unit per 7 grams CHO consumed PLAN FOR DISCHARGE: * Continue plan [place] [facility] [place]
--- NOTE | 2021-07-16 13:09 | CT Scan Report ---
CT abd pelvis IV con only CLINICAL INDICATION: Abdominal pain, nausea, vomiting, leukocytosis. TECHNIQUE: Helical axial images of the abdomen and pelvis were obtained and displayed. Automated dose lowering techniques and/or adjustment according to patient size were utilized for this exam. This e xam was performed with intravenous contrast. COMPARISON: Comparison is made to CT abdomen and pelvis 04/27/2021 FINDINGS: Lower chest: Groundglass opacities are seen predominantly in the left lower lobe. Liver: Unremarkable. No focal lesions are seen. Gallbladder and biliary tree: No calcified gallstones. Normal caliber wall. No intra- or extrahepatic biliary ductal dilation. Pancreas: Unremarkable, no focal lesions. Spleen: Unremarkable. Adrenals: Unremarkable. Kidneys and ureters: Unremarkable. Bladder: Mild diffuse thickening of the bladder wall is seen, similar to appearance on prior exam. Reproductive organs: Unremarkable. Bowel: The large bowel is distended with liquid contents noted to the level of the descending colon. Multiple distended but nondilated small bowel loops are seen with short air-fluid levels. The appendi x is unremarkable. The stomach and duodenum feature a large amount of air and fluid contents. Lymph nodes Retroperitoneal: Unremarkable. Mesenteric: Unremarkable. Pelvic: Unremarkable. Peritoneum: Normal Vessels: Unremarkable. Abdominal wall: Unremarkable. Bones: Unremarkable. IMPRESSION: Prominent gas and fluid distention of the large bowel without focal wall thickening. Distended but no ndilated loops of small bowel are seen. Findings are not consistent with small bowel obstruction, but may represent ileus with gastroparesis or less likely enteritis. ACT 112: Negative or not required by law. Electronically signed by: Richard Gallo M.D. 07/16/2021 1:07 PM
[2021-07-16] MEDS: ERYTHROMYCIN DELAYED RELEASE 250 MG CAP PO SCH ×2 (13:17→18:11)
[2021-07-16] MEDS ORDERED: METOCLOPRAMIDE HCL INJ 5 MG/ML 2 ML VIAL IV STA (18:14)
[2021-07-16] MEDS ORDERED: PIPERACILL/TAZOBAC CONSULT ACTIVE PRN (18:17)
--- NOTE | 2021-07-16 18:25 | Communication Note ---
Date of Service: July 16, 2021 Patient evaluated this afternoon. Feeling better but still with decreased appetite/nausea. No vomiting. Blood sugars improved since admission and no episodes of hypoglycemia. She notes she had been taking 1unit for every 8CHO consumed as part of sliding scale and has appt with Endocrine later this month. She does have Dexcom and states it had been going off all day at work and she did not notice any symptoms, however BSG was 19 when EMS arrived and started hypoglycemia protocol prior to admission (also was hypothemic, since resolved) CTA/P with Prominent gas and fluid distention of the large bowel without focal wall thickening. Distended but nondilated loops of small bowel are seen. Findings are not consistent with small bowel obstruction, but may represent ileus with gastroparesis or less likely enteritis. --> will have GI on board as well -- follows with Dr Watkins. Of note, to start Erythromycin and Viberzi by GI but has not yet picked up those --> started erythromycin while inpatient In combination with elevated WBC and hypothermia with reported diaphoresis (although could be from hypoglycemia) will start Zosyn (elevated procal as well) empirically Liquid diet as tolerated, advance as tolerated Stool studies added, cdiff Mag 1.7 and given 1gm IV replacement with repeat wnl Urine cx pending as well -- UA w/ budding yeast -- ? yeast infection given diabetes. monitor cx Supportive care with antiemetics Will place on IVF NS @80cc/hr Continue to monitor
[2021-07-16] MEDS: SODIUM CHLORIDE 0.9% 1000ML 1,000 ML IV SCH (19:10)
[2021-07-16] MEDS ORDERED: PIPERACILLIN/TAZOBACTAM 3.375 GM in DEXTROSE 5% 100 ML IV ONE (19:30)
[2021-07-16] MEDS: PIPERACILLIN/TAZOBACTAM 3.375 GM in DEXTROSE 5% 100 ML IV SCH (23:27)
[2021-07-17 06:27] LABS: Basophils # (auto) 0.02 K/uL (0-0.2); Basophils % (auto) 0.3 %; Eosinophils # (auto) 0.11 K/uL (0-0.5); Eosinophils % (auto) 1.4 %; Hematocrit (blood only) 38.2 % (37-47); Hemoglobin 12.6 g/dL (12.0-16.0); Immature Granulocytes # (auto) 0.02 K/uL (0.00-0.02); Immature Granulocytes % (auto) 0.3 %; Lymphocytes # (auto) 3.12 K/uL (1.2-3.4); Lymphocytes % (auto) 40.2 %; Mean Corpuscular Hemoglobin 27.9 pg (25-34); Mean Corpuscular Volume 84.7 fL (80-100); Mean Platelet Volume 12.4 fL (7.4-10.4); Monocytes # (auto) 0.72 K/uL (0.11-0.59); Monocytes % (auto) 9.3 %; Neutrophils # (auto) 3.78 K/uL (1.4-6.5); Neutrophils % (auto) 48.5 %; Platelet Count 241 K/uL (130-400); RDW Coefficient of Variation 13.4 % (11.5-14.5); Red Blood Count 4.51 M/uL (4.2-5.4); White Blood Count 7.77 K/uL (4.8-10.8)
--- NOTE | 2021-07-17 06:47 | Emergency Department Note ---
Impression & Plan Hypoglycemia, Type 1 diabetes, uncontrolled, with gastroparesis ED Provider Note CHIEF COMPLAINT: Hypoglycemia HISTORY OF PRESENT ILLNESS: This 21-year-old female patient presents to the emergency department after an episode of hypoglycemia while at work today. The patient works at [employer] where she received her flu vaccine today. The patient states she has a history of gastroparesis and "always feels sick." She states she lives her life with diarrhea, therefore went to work feeling n auseated with diarrhea today. They were giving flu shots out so she received one. She had a hypoglycemic episode, checking her blood sugar noting it to be in the forties. The patient states she mentioned it to a coworker and must have lost consciousness after that. She does not recall anything except the ambulance coming. Patient's mother is at the bedside. Patient denies any fevers, chills, chest pain or shortness of breath. She denies any pain in the head or neck. She states she has great difficulty controlling her blood sugars. She does not believe that she is . REVIEW OF SYSTEMS: A review of systems was performed with positives and pertinent negatives listed in the history of present illness. 10 systems were reviewed and are otherwise negative. ALLERGIES: see below MEDICATIONS: see below PMH: see below SOCIAL HISTORY: see below DDx: Infection, dehydration, metabolic abnormality, hypo/hyperglycemia, electrolyte disturbance, anemia, hypoxia, cardiac sources, intracerebral event, toxicologic, neurologic, as well as other pathologies. PHYSICAL EXAM: Vital signs reviewed. General: Somewhat ill-appearing 21-year-old female, in no significant distress. HEENT: No scleral icterus, PERRLA, neck supple. Atraumatic. Dry mucous membranes. Cardiovascular: Regular rate and rhythm, no extra sounds. Pulmonary: Clear to auscultation bilaterally, normal work of breathing. Abdomen: Soft, nontender, nondistended, positive bowel sounds. Musculoskeletal: Atraumatic, no peripheral edema. Nontender to palpation over the cervical, thoracic and lumbar spines Neurologic: Patient awake alert and oriented x 3 Skin: Warm, dry, no rash EMERGENCY DEPARTMENT COURSE/MDM: This patient was evaluated and appeared to be in no significant distress. IV access was obtained and laboratory work was drawn. Patient was placed on radiation monitor and hydrated with normal saline solution. Patient was given p.o. food and fluids however her blood sugar was noted to be in the forties. D5NS was initiated intravenously.. Given the uncertain etiology of the patient's hypoglycemia and positive LOC, hospitalist service has been consulted as we have not been able to maintain stable blood sugar without IV glucose. Patient is aware of this plan and agreed. MONITORING: An order for cardiac monitoring was placed and the patient is noted to be in a normal sinus rhythm at 72 beats per minute. RADIOLOGY: See below EKG:NSR at [address] segments, no PVC, no PAC. Q waves in the anterior leads are noted. QTc is 473. DISPOSITION: Hospitalist evaluation Past Med/Surg History Medical History Anxiety and depression Diabetes mellitus type 1 Gastritis Gastroparesis Hx of diabetic retinopathy IBS (irritable bowel syndrome) Surgical History H/O eye surgery LASER SURGERY RT/LEFT History of colonoscopy History of ear surgery LEFT EAR S/P INFECTION FROM EARING History of esophagogastroduodenoscopy (EGD) History of myringotomy History of tonsillectomy [place] teeth removed Family History Mother Family history of diabetes mellitus Grandmother (Maternal) Family history of diabetes mellitus Other Breast cancer Myocardial infarction No family history of adverse response to anesthesia Ovarian cancer Prostate cancer Denies family history of Colorectal cancer Social History Smoking Status: Never smoker Second Hand Exposure: No; Hx Alcohol Use: No Hx Substance Use: No Preferred Language: Palestinian Communication Ability: Effective Necktie Stitcher Required: No Beliefs That Will Affect Care: None Current Living Situation: Parent Current Living Situation Comment: LIVES WITH PARENTS Feels Safe at Home: Yes Dental Care, Regularly: Yes Physical Activity Frequency: 5-6 Times per Week Assistive Devices: None Allergies Allergies Allergy/AdvReac Type Severity Reaction Status Date / Time Lady Bugs Allergy Intermediate Swelling Uncoded 07/16/21 00:09 and hives Home Meds Home Medications Medication Instructions Recorded Confirmed levonorgestrel-ethinyl estradiol 1 tab PO QAM 07/13/19 07/24/21 0.1 mg-20 mcg tablet (Lutera (28)) fluticasone propionate 50 2 spray INTRANASAL DAILY PRN 04/26/21 07/24/21 mcg/actuation nasal spray,suspension Medical Marijuana 1 dose INHALATION UD PRN 06/12/21 07/24/21 ondansetron 4 mg disintegrating 4 mg PO TID PRN 07/16/21 07/24/21 tablet Previous Rx's Medication Instructions Recorded blood sugar diagnostic (OneTouch #100 ea 04/30/21 Verio test strips) cetirizine 10 mg tablet 10 mg PO QAM 30 Days #30 tab 04/30/21 lancets 33 gauge (OneTouch Delica #100 ea 04/30/21 Lancets) pantoprazole 40 mg tablet,delayed 40 mg PO BID 30 Days #60 tab 04/30/21 release pen needle, diabetic 32 gauge x #50 ea 04/30/2112/25" blood-glucose meter,continuous #1 ea 05/23/21 (Dexcom G6 [employer]) blood-glucose sensor (Dexcom G6 #3 ea 05/23/21 Sensor) blood-glucose transmitter (Dexcom #1 ea 05/23/21 G6 Transmitter) escitalopram oxalate 20 mg tablet 20 mg PO DAILY #30 tab 05/28/21 (Lexapro) erythromycin 250 mg tablet 250 mg PO TIDM #90 tab 07/12/21 magnesium 250 mg tablet 250 mg PO DAILY #30 tab 07/17/21 amoxicillin 875 mg-potassium 1 tab PO BID #10 tab 07/18/21 clavulanate 125 mg tablet (Augmentin) insulin glargine 100 unit/mL (3 20 unit SUBCUT QAM #15 ml 07/18/21 mL) subcutaneous pen (Lantus Solostar U-100 Insulin) linaclotide 145 mcg capsule 145 mcg PO DAILY #30 cap 07/26/21 (Linzess) Results & Data (ED) Home Medications Current Medication List: was personally reviewed by me Laboratory Data Attestation: I reviewed the patient's lab results. Result diagrams: 07/18/21 08:09 07/18/21 08:09 Lab Results 07/15/21 07/15/21 07/15/21 Range/Units 23:43 23:43 23:55 WBC (4.8-10.8) K/uL RBC (4.2-5.4) M/uL Hgb (12.0-16.0) g/dL Hct (37-47) % MCV (80-100) fL MCH (25-34) pg MCHC (32-36) g/dL RDW Std Deviation (36.4-46.3) fL RDW Coeff of Mil (11.5-14.5) % Plt Count (130-400) K/uL MPV (7.4-10.4) fL Immature Gran % (Auto) % Neut % (Auto) % Lymph % (Auto) % [place] % (Auto) % Eos % (Auto) % Baso % (Auto) % Neut # (Auto) (1.4-6.5) K/uL Lymph # (Auto) (1.2-3.4) K/uL [place] # (Auto) (0.11-0.59) K/uL Eos # (Auto) (0-0.5) K/uL Baso # (Auto) (0-0.2) K/uL Immature Gran # (Auto) (0.00-0.02) K/uL RBC Morphology Sodium 141 (136-145) mmol/L Potassium 4.0 (3.5-5.1) mmol/L Chloride 107 (98-107) mmol/L Carbon Dioxide 26 (21-32) mmol/L Anion Gap 8.0 (3-11) BUN 14 (7-18) mg/dl Creatinine 0.73 (0.6-1.2) mg/dl Est Cr Clr Drug Dosing 143.2 ml/min Est GFR ( Amer) 135.5 ml/min Est GFR (Non-Af Amer) 116.9 ml/min BUN/Creatinine Ratio 18.8 (10-20) Glucose 122 H (70-99) mg/dl POC Glucose 142 H (70-99) mg/dl Calcium 9.2 (8.5-10.1) mg/dl Magnesium 1.7 L (1.8-2.4) mg/dl Total Bilirubin 0.2 (0.2-1) mg/dl AST 16 (15-37) U/L ALT 36 (12-78) U/L Alkaline Phosphatase 74 (45-117) U/L Troponin I < 0.015 (0-0.045) ng/ml Total Protein 7.9 (6.4-8.2) gm/dl Albumin 3.6 (3.4-5.0) gm/dl Globulin 4.3 H (2.5-4.0) gm/dl Albumin/Globulin Ratio 0.8 L (0.9-2) TSH 3.130 (0.300-4.500) uIu/ml HCG, Qual Negative (Negative) Urine Color Urine Appearance (Clear) Urine pH (4.5-7.5) Ur Specific [place] (1.000-1.030) Urine Protein (Negative) Urine Glucose (UA) (Negative) Urine Ketones (Negative) Urine Blood (Negative) Urine Nitrite (Negative) Urine Bilirubin (Negative) Urine Urobilinogen (Negative) Ur Leukocyte Esterase (Negative) Urine WBC (Auto) (0-5) /hpf Urine RBC (Auto) (0-4) /hpf U Hyaline Cast (Auto) (0-5) /lpf U Epithel Cells (Auto) (0-5) /lpf Urine Bacteria (Auto) (Negative) Urine Yeast (None Prsent) COVID-19 Eval Order SARS-CoV-2 (PCR) (Negative) 07/16/21 07/16/21 07/16/21 Range/Units 00:23 01:08 01:08 WBC 24.16 H (4.8-10.8) K/uL RBC 4.70 (4.2-5.4) M/uL Hgb 13.3 (12.0-16.0) g/dL Hct 40.0 (37-47) % MCV 85.1 (80-100) fL MCH 28.3 (25-34) pg MCHC 33.3 (32-36) g/dL RDW Std Deviation 41.3 (36.4-46.3) fL RDW Coeff of Mil 13.2 (11.5-14.5) % Plt Count 257 (130-400) K/uL MPV 11.8 H (7.4-10.4) fL Immature Gran % (Auto) 0.2 % Neut % (Auto) 83.4 % Lymph % (Auto) 7.9 % [place] % (Auto) 8.2 % Eos % (Auto) 0.2 % Baso % (Auto) 0.1 % Neut # (Auto) 20.14 H (1.4-6.5) K/uL Lymph # (Auto) 1.91 (1.2-3.4) K/uL [place] # (Auto) 1.97 H (0.11-0.59) K/uL Eos # (Auto) 0.06 (0-0.5) K/uL Baso # (Auto) 0.02 (0-0.2) K/uL Immature Gran # (Auto) 0.06 H (0.00-0.02) K/uL RBC Morphology Unremarkable Sodium (136-145) mmol/L Potassium (3.5-5.1) mmol/L Chloride (98-107) mmol/L Carbon Dioxide (21-32) mmol/L Anion Gap (3-11) BUN (7-18) mg/dl Creatinine (0.6-1.2) mg/dl Est Cr Clr Drug Dosing ml/min Est GFR ( Amer) ml/min Est GFR (Non-Af Amer) ml/min BUN/Creatinine Ratio (10-20) Glucose (70-99) mg/dl POC Glucose (70-99) mg/dl Calcium (8.5-10.1) mg/dl Magnesium (1.8-2.4) mg/dl Total Bilirubin (0.2-1) mg/dl AST (15-37) U/L ALT (12-78) U/L Alkaline Phosphatase (45-117) U/L Troponin I (0-0.045) ng/ml Total Protein (6.4-8.2) gm/dl Albumin (3.4-5.0) gm/dl Globulin (2.5-4.0) gm/dl Albumin/Globulin Ratio (0.9-2) TSH (0.300-4.500) uIu/ml HCG, Qual (Negative) Urine Color Urine Appearance (Clear) Urine pH (4.5-7.5) Ur Specific [place] (1.000-1.030) Urine Protein (Negative) Urine Glucose (UA) (Negative) Urine Ketones (Negative) Urine Blood (Negative) Urine Nitrite (Negative) Urine Bilirubin (Negative) Urine Urobilinogen (Negative) Ur Leukocyte Esterase (Negative) Urine WBC (Auto) (0-5) /hpf Urine RBC (Auto) (0-4) /hpf U Hyaline Cast (Auto) (0-5) /lpf U Epithel Cells (Auto) (0-5) /lpf Urine Bacteria (Auto) (Negative) Urine Yeast (None Prsent) COVID-19 Eval Order Covid19 at [facility] SARS-CoV-2 (PCR) NEGATIVE (Negative) 07/16/21 07/16/21 Range/Units 03:47 04:55 WBC (4.8-10.8) K/uL RBC (4.2-5.4) M/uL Hgb (12.0-16.0) g/dL Hct (37-47) % MCV (80-100) fL MCH (25-34) pg MCHC (32-36) g/dL RDW Std Deviation (36.4-46.3) fL RDW Coeff of Mil (11.5-14.5) % Plt Count (130-400) K/uL MPV (7.4-10.4) fL Immature Gran % (Auto) % Neut % (Auto) % Lymph % (Auto) % [place] % (Auto) % Eos % (Auto) % Baso % (Auto) % Neut # (Auto) (1.4-6.5) K/uL Lymph # (Auto) (1.2-3.4) K/uL [place] # (Auto) (0.11-0.59) K/uL Eos # (Auto) (0-0.5) K/uL Baso # (Auto) (0-0.2) K/uL Immature Gran # (Auto) (0.00-0.02) K/uL RBC Morphology Sodium (136-145) mmol/L Potassium (3.5-5.1) mmol/L Chloride (98-107) mmol/L Carbon Dioxide (21-32) mmol/L Anion Gap (3-11) BUN (7-18) mg/dl Creatinine (0.6-1.2) mg/dl Est Cr Clr Drug Dosing ml/min Est GFR ( Amer) ml/min Est GFR (Non-Af Amer) ml/min BUN/Creatinine Ratio (10-20) Glucose (70-99) mg/dl POC Glucose 191 H (70-99) mg/dl Calcium (8.5-10.1) mg/dl Magnesium (1.8-2.4) mg/dl Total Bilirubin (0.2-1) mg/dl AST (15-37) U/L ALT (12-78) U/L Alkaline Phosphatase (45-117) U/L Troponin I (0-0.045) ng/ml Total Protein (6.4-8.2) gm/dl Albumin (3.4-5.0) gm/dl Globulin (2.5-4.0) gm/dl Albumin/Globulin Ratio (0.9-2) TSH (0.300-4.500) uIu/ml HCG, Qual (Negative) Urine Color Yellow Urine Appearance Clear (Clear) Urine pH 5.5 (4.5-7.5) Ur Specific [place] 1.016 (1.000-1.030) Urine Protein Negative (Negative) Urine Glucose (UA) Negative (Negative) Urine Ketones Negative (Negative) Urine Blood Negative (Negative) Urine Nitrite Negative (Negative) Urine Bilirubin Negative (Negative) Urine Urobilinogen Negative (Negative) Ur Leukocyte Esterase 2+ H (Negative) Urine WBC (Auto) >30 H (0-5) /hpf Urine RBC (Auto) 0-4 (0-4) /hpf U Hyaline Cast (Auto) 0 (0-5) /lpf U Epithel Cells (Auto) >30 H (0-5) /lpf Urine Bacteria (Auto) Negative (Negative) Urine Yeast Budding A (None Prsent) COVID-19 Eval Order SARS-CoV-2 (PCR) (Negative) Administered Medications Discontinued Medications Amoxicillin/Clavulanate Potassium (Amoxicillin/Clavulanate 875 Mg Tab) 1 tab PO BIDM [facility] Stop: 07/27/21 16:59 Last Admin: 07/18/21 09:53 Dose: 1 tab Documented by: [id number] Admin: 07/17/21 16:49 Dose: 1 tab Documented by: [id number] Cetirizine HCl (Cetirizine Hcl 10 Mg Tablet) 10 mg PO QAM [facility] Stop: 08/15/21 08:59 Last Admin: 07/18/21 09:53 Dose: 10 mg Documented by: [id number] Admin: 07/17/21 09:18 Dose: 10 mg Documented by: [id number] Admin: 07/16/21 09:30 Dose: 10 mg Documented by: [id number] Dextrose (Dextrose 50% 50 Ml Syringe) 25 - 50 ml IV UD PRN; Protocol PRN Reason: Hypoglycemia Protocol Stop: 08/15/21 06:27 Last Admin: 07/17/21 22:11 Dose: 50 ml Documented by: [id number] Admin: 07/17/21 17:31 Dose: 50 ml Documented by: [id number] Admin: 07/17/21 16:10 Dose: 50 ml Documented by: [id number] Erythromycin (Erythromycin 250 Mg Tabec) 250 mg PO TIDM [facility] Stop: 08/15/21 07:59 Last Admin: 07/16/21 09:27 Dose: Not Given Documented by: [id number] Erythromycin (Erythromycin Delayed Release 250 Mg Cap) 250 mg PO TIDM [facility] Stop: 08/15/21 11:59 Last Admin: 07/18/21 12:39 Dose: 250 mg Documented by: [id number] Admin: 07/18/21 09:53 Dose: 250 mg Documented by: [id number] Admin: 07/17/21 16:49 Dose: 250 mg Documented by: [id number] Admin: 07/17/21 14:26 Dose: 250 mg Documented by: [id number] Admin: 07/17/21 07:52 Dose: 250 mg Documented by: [id number] Admin: 07/16/21 18:11 Dose: 250 mg Documented by: [id number] Admin: 07/16/21 13:17 Dose: 250 mg Documented by: [id number] Escitalopram Oxalate (Escitalopram Oxalate 20 Mg Tab) 20 mg PO DAILY [facility] Stop: 08/15/21 08:59 Last Admin: 07/18/21 09:53 Dose: 20 mg Documented by: [id number] Admin: 07/17/21 09:22 Dose: 20 mg Documented by: [id number] Sodium Chloride (Nss 1000ml) 1,000 mls @ 999 mls/hr IV .Q1H1M ONE Stop: 07/16/21 00:57 Last Admin: 07/16/21 02:17 Dose: Not Given Documented by: [id number] Dextrose/Sodium Chloride (D5w And Nss) 1,000 mls @ 125 mls/hr IV .Q8H [facility] Stop: 08/15/21 00:59 Last Infusion: 07/16/21 10:32 Dose: 0 mls/hr Documented by: [id number] Admin: 07/16/21 01:00 Dose: 125 mls/hr Documented by: [id number] Magnesium Sulfate/Dextrose (Magnesium Sulfate / D5w) 1 gm in 100 mls @ 50 mls/hr IV ONE ONE Stop: 07/16/21 10:14 Last Infusion: 07/16/21 12:17 Dose: 0 mls/hr Documented by: [id number] Admin: 07/16/21 09:30 Dose: 50 mls/hr Documented by: [id number] Piperacillin Sod/Tazobactam (Sod 3.375 gm/ Dextrose) 115 mls @ 28.75 mls/hr IV Q8H [facility]; Protocol Stop: 07/17/21 13:00 Last Infusion: 07/17/21 13:46 Dose: 0 mls/hr Documented by: [id number] Admin: 07/17/21 08:06 Dose: 28.8 mls/hr Documented by: [id number] Infusion: 07/17/21 03:37 Dose: 0 mls/hr Documented by: [id number] Admin: 07/16/21 23:27 Dose: 28.8 mls/hr Documented by: [id number] Sodium Chloride (Nss 1000ml) 1,000 mls @ 80 mls/hr IV .[id number] [facility] Stop: 08/15/21 18:29 Last Infusion: 07/18/21 12:54 Dose: 80 mls/hr Documented by: [id number] Admin: 07/18/21 00:37 Dose: 80 mls/hr Documented by: [id number] Infusion: 07/17/21 21:32 Dose: 80 mls/hr Documented by: [id number] Infusion: 07/17/21 20:40 Dose: 80 mls/hr Documented by: [id number] Infusion: 07/17/21 19:29 Dose: 0 mls/hr Documented by: [id number] Admin: 07/17/21 18:27 Dose: Not Given Documented by: [id number] Admin: 07/17/21 07:51 Dose: 80 mls/hr Documented by: [id number] Infusion: 07/17/21 07:51 Dose: 80 mls/hr Documented by: [id number] Infusion: 07/17/21 06:24 Dose: 80 mls/hr Documented by: [id number] Infusion: 07/17/21 05:24 Dose: 0 mls/hr Documented by: [id number] Infusion: 07/17/21 01:12 Dose: 80 mls/hr Documented by: [id number] Admin: 07/16/21 19:10 Dose: 80 mls/hr Documented by: [id number] Piperacillin Sod/Tazobactam (Sod 3.375 gm/ Dextrose) 115 mls @ 230 mls/hr IV NOW ONE; Protocol Stop: 07/16/21 19:59 Last Infusion: 07/16/21 19:43 Dose: 0 mls/hr Documented by: [id number] Admin: 07/16/21 19:10 Dose: 230 mls/hr Documented by: [id number] Magnesium Sulfate/Dextrose (Magnesium Sulfate / D5w) 1 gm in 100 mls @ 50 mls/hr IV Q2H [facility] Stop: 07/17/21 13:29 Last Infusion: 07/17/21 14:44 Dose: 0 mls/hr Documented by: [id number] Admin: 07/17/21 12:38 Dose: 50 mls/hr Documented by: [id number] Infusion: 07/17/21 12:38 Dose: 50 mls/hr Documented by: [id number] Admin: 07/17/21 11:04 Dose: 50 mls/hr Documented by: [id number] Cosyntropin 250 mcg/ Syringe 5 mls @ 2.5 mls/min IV 0830 ONE Stop: 07/18/21 08:31 Last Admin: 07/18/21 08:33 Dose: 2.5 mls/min Documented by: [id number] Insulin Aspart (Insulin Aspart 100 Units/Ml 3 Ml Pen) 0 units SC ACHS [facility]; Protocol Stop: 08/15/21 07:29 Last Admin: 07/17/21 20:16 Dose: Not Given Documented by: [id number] Admin: 07/17/21 17:35 Dose: Not Given Documented by: [id number] Admin: 07/17/21 13:22 Dose: 5 units Documented by: [id number] Cosigned by: [id number] Admin: 07/17/21 09:18 Dose: Not Given Documented by: [id number] Admin: 07/16/21 20:16 Dose: 5 units Documented by: [id number] Cosigned by: [id number] Admin: 07/16/21 18:10 Dose: 5 units Documented by: [id number] Cosigned by: [id number] Admin: 07/16/21 13:22 Dose: 7 units Documented by: [id number] Cosigned by: [id number] Admin: 07/16/21 09:35 Dose: 8 units Documented by: [id number] Cosigned by: [id number] Insulin Aspart (Insulin Aspart 100 Units/Ml 3 Ml Pen) 0 units SC TODAY@0200 ONE; Protocol Stop: 07/18/21 02:01 Last Admin: 07/18/21 03:05 Dose: Not Given Documented by: [id number] Insulin Aspart (Insulin Aspart 100 Units/Ml 3 Ml Pen) 0 units SC Q6 [facility]; Protocol Stop: 08/17/21 05:59 Last Admin: 07/18/21 12:41 Dose: 7 units Documented by: [id number] Cosigned by: [id number] Admin: 07/18/21 10:28 Dose: 4 units Documented by: [id number] Cosigned by: [id number] Admin: 07/18/21 06:13 Dose: Not Given Documented by: [id number] Insulin Glargine (Insulin Glargine Solostar 100 Units/Ml 3 Ml Pen) 20 units SC QAM [facility]; Protocol Stop: 08/15/21 08:59 Last Admin: 07/16/21 09:36 Dose: 20 units Documented by: [id number] Cosigned by: [id number] Insulin Glargine (Insulin Glargine Solostar 100 Units/Ml 3 Ml Pen) 0 units SC QAM [facility]; Protocol Stop: 08/16/21 08:59 Last Admin: 07/18/21 10:12 Dose: 10 units Documented by: [id number] Cosigned by: [id number] Admin: 07/17/21 09:24 Dose: 20 units Documented by: [id number] Cosigned by: [id number] Ioversol (Optiray 320 100ml) 94 ml IV ONCE ONE Stop: 07/16/21 12:50 Last Admin: 07/16/21 12:50 Dose: 94 ml Documented by: [id number] Metoclopramide HCl (Metoclopramide Hcl Inj 5 Mg/Ml 2 Ml Vial) 10 mg IV NOW STA Stop: 07/16/21 18:15 Last Admin: 07/16/21 18:41 Dose: 10 mg Documented by: [id number] Miscellaneous (*Viberzi*Order Awaiting Action) 1 ea N/A QS [facility] Stop: 08/15/21 07:59 Last Admin: 07/18/21 07:20 Dose: Not Given Documented by: [id number] Admin: 07/17/21 21:57 Dose: Not Given Documented by: [id number] Admin: 07/17/21 15:56 Dose: Not Given Documented by: [id number] Admin: 07/17/21 07:52 Dose: Not Given Documented by: [id number] Admin: 07/16/21 23:33 Dose: Not Given Documented by: [id number] Admin: 07/16/21 18:08 Dose: Not Given Documented by: [id number] Admin: 07/16/21 09:27 Dose: Not Given Documented by: [id number] Miscellaneous (*Lutera*Order Awaiting Action) 1 ea N/A QS [facility] Stop: 08/15/21 07:59 Last Admin: 07/18/21 07:19 Dose: Not Given Documented by: [id number] Admin: 07/17/21 21:57 Dose: Not Given Documented by: [id number] Admin: 07/17/21 15:56 Dose: Not Given Documented by: [id number] Admin: 07/17/21 07:52 Dose: Not Given Documented by: [id number] Admin: 07/16/21 23:33 Dose: Not Given Documented by: [id number] Admin: 07/16/21 18:08 Dose: Not Given Documented by: [id number] Admin: 07/16/21 09:27 Dose: Not Given Documented by: [id number] Ondansetron HCl (Ondansetron Inj 2 Mg/Ml 2 Ml Vial) 4 mg IV Q6H PRN PRN Reason: Nausea And Vomiting Stop: 08/15/21 06:27 Last Admin: 07/18/21 09:57 Dose: 4 mg Documented by: [id number] Admin: 07/16/21 12:10 Dose: 4 mg Documented by: [id number] Pantoprazole Sodium (Pantoprazole 40 Mg Tab) 40 mg PO BID [facility] Stop: 08/15/21 08:59 Last Admin: 07/18/21 09:53 Dose: 40 mg Documented by: [id number] Admin: 07/17/21 20:40 Dose: 40 mg Documented by: [id number] Admin: 07/17/21 09:18 Dose: 40 mg Documented by: [id number] Admin: 07/16/21 20:16 Dose: 40 mg Documented by: [id number] Admin: 07/16/21 09:31 Dose: 40 mg Documented by: [id number] Blood Pressure Blood Pressure Findings: Normal blood pressure Blood Pressure Disposition: did not require urgent referral Discharge Plan Visit Data Chief Complaint: Hypoglycemia Stated Complaint: Hypoglycemic ED Provider: Paula Matta Discharge Problem: Hypoglycemia, Type 1 diabetes, uncontrolled, with gastroparesis Patient Disposition: Admitted As Inpatient Discharge Instructions Interventions: ED Discharge Assessment Last Done: 07/16/21 06:00
[2021-07-17 06:53] LABS: Alanine Aminotransferase 36 U/L (12-78); Albumin Level 2.7 gm/dl (3.4-5.0); Aspartate Aminotransferase 6 U/L (15-37); BUN Creatinine Ratio 14.6 (10-20); Bilirubin Direct < 0.1 mg/dl (0-0.2); Blood Urea Nitrogen 8 mg/dl (7-18); Calcium 8.4 mg/dl (8.5-10.1); Carbon Dioxide 25 mmol/L (21-32); Chloride 107 mmol/L (98-107); Est GFR (African American) > 150.0 ml/min; Est GFR (Non-African American) 131.6 ml/min; Glucose 134 mg/dl (70-99); Magnesium 1.6 mg/dl (1.8-2.4); Sodium 139 mmol/L (136-145)
[2021-07-17 06:56] LABS: Alkaline Phosphatase 62 U/L (45-117); Bilirubin,Total 0.5 mg/dl (0.2-1); Total Protein 6.5 gm/dl (6.4-8.2)
[2021-07-17 07:21] LABS: Estimated Average Glucose 217 mg/dl; Hemoglobin A1C 9.2 % (4.5-5.6)
[2021-07-17] MEDS: SODIUM CHLORIDE 0.9% 1000ML 1,000 ML IV SCH ×2 (07:51→18:27)
[2021-07-17] MEDS: ERYTHROMYCIN DELAYED RELEASE 250 MG CAP PO SCH ×3 (07:52→16:49)
[2021-07-17] MEDS: PIPERACILLIN/TAZOBACTAM 3.375 GM in DEXTROSE 5% 100 ML IV SCH (08:06)
--- NOTE | 2021-07-17 08:40 | XRay Report ---
KUB HISTORY: Acute generalized abdominal pain with nausea and vomiting Follow up COMPARISON: CT abdomen and pelvis 07/16/2021 FINDINGS: Nonobstructive bowel gas pattern. Mild fecal retention. Gas-filled splenic flexure. Contras t is noted within the urinary bladder. An electronic device projects over the right mid abdominal wal l. No renal calculi. No ureteral calculi. No pneumoperitoneum or pneumatosis. No fracture. IMPRESSION: Nonobstructive bowel gas pattern. ACT 112: Negative or not required by law. The above report was generated using voice recognition software. It may contain grammatical, syntax o r spelling errors. Electronically signed by: Ajay Prasad M.D. 07/17/2021 8:39 AM
[2021-07-17] MEDS: INSULIN ASPART 100 UNITS/ML 3 ML PEN SC SCH ×4 (09:18→20:16)
[2021-07-17] MEDS: PANTOprazole 40 MG TAB PO SCH ×2 (09:18→20:40)
[2021-07-17] MEDS: CETIRIZINE HCL 10 MG TABLET PO SCH (09:18)
[2021-07-17] MEDS: ESCITALOPRAM OXALATE 20 MG TAB PO SCH (09:22)
[2021-07-17] MEDS: INSULIN GLARGINE SOLOSTAR 100 UNITS/ML 3 ML PEN SC SCH (09:24)
--- NOTE | 2021-07-17 09:26 | Hospitalist Progress Note ---
Date of Service July 17, 2021 Assessment & Plan (1) Hypoglycemia: Plan: In DM I since age 11, most recent A1c was 14.4 Patient with hypoglycemia prior to arrival, hypothermic, with WBC 24k A1c in 9s on repeat but per Dexcom report in 7s reviewed by DM educator Hypoglycemia Had not had any further hypoglycemic until afternoon 07/17 --> pharmacy consulted and glucose given parameters loosened CF/CR 05/05 for this evening Discussed decreasing AM lantus to 22u in AM and holding off SSI as reported lows majority of days at work and likely not taking breaks/eating meals and rather snacking on inappropriate choices/covering and then having n/v and not keeping the food down Remains on IVF for supportive care Abdominal Pain chronic but increased prior to admit with n/v as usual with her gastroparesis WBC 24k on admit with elevated procalcitonin and abd pain prompting abdominal imaging: CTA/P with Prominent gas and fluid distention of the large bowel without focal wall thickening. Distended but nondilated loops of small bowel are seen. Findings are not consistent with small bowel obstruction, but may represent ileus with gastroparesis or less likely enteritis. Zosyn --> Augmentin and would likely at least complete shorter end of course at d/c given above Clear liquid diet, passing gas NSS @100cc/hr --> consulted GI as well -- follows with Dr Watkins-- recs appreciate. consult not yet done Of note, to start Erythromycin and Viberzi by GI but has not yet picked up those --> started erythromycin while inpatient Cdiff negative Stool studies pending Rotavirus to be sent once patient with BM Mag low at 1.6 again likely due to PPI and has been low in past. 2gm IV ordered. Patient does state mother with similar issues.....??Gittleman type syndrome --> rec supplementation at discharge as well. ?PCP ref as outpt for further genetic work-up/nephrology Cortisol AM obtained to look for signs of adrenal insufficiency. Given admission with abd pain/n/v expected to be higher than 6.46 and will plan for cosytropyn stim test in am --> Patient does have f/u with Endocrine later this month as well Continue to monitor (2) Type 1 diabetes, uncontrolled, with gastroparesis: Plan: A1c improving Has Dexcom in place Pharmacy consulted for glycemic management as above Endocrine follow up later this month (3) Leukocytosis: Plan: WBC 24k, could have been reactive from n/v however positive procal and findings on CT as above concerning for infectious etiology Zosyn started 07/16 WBC now wnl, patient remained afebrile Switched to Augmentin and would send at d/c as above (4) Irritable bowel syndrome with diarrhea: Plan: Chronic -Continue Eloxadoline 75mg po BID. Patient may take home medication (has not yet had this approved by insurance yet) Gi consulted as above Now w/ constipation (5) Gastroparesis: Plan: Chronic -Continue Erythromycin 250mg po TID (placed on ER here but hasn't picked up usua l medications -Zofran PRN -Protonix 40mg po BID (also likely contributing to her low magnesium) (6) Hypomagnesemia: Plan: repeat again low at 1.6 cdiff negative as above 2gm IV for today and follow on AM labs but suspect will need supplementation at discharge (7) Anxiety: Plan: Chronic -Continue escitalopram Plan: continued monitoring overnight stim test for AM possible d/c tomorrow Admission and Anticipated Discharge Date Admission Date: July 16, 2021 Supervising Physician Co-Signing Physician Notes Attending Attestation - Chart reviewed in detail, care plan d/w PA Gela Carranza. I agree w/ the davis components of her documentation. Douglas Murillo MD Subjective Patient evaluated this afternoon. Still not much of an appetite. No BM since last evening. Discussed CT findings and her chronic cramping/abd pain (tolerable and always there though) as well as low magnesium and would like to monitor overnight. Discussed lowering AM lantus tby 10% and cutting off sliding scale and possible monitoring given reportedly continued lows at work 4/5 days a week. Endocrine appt at end of month and review of Dexcom over past several weeks by DM educator with A1c per that report in the 7s. Had episode of hypoglycemia this afternoon (only given 20u lantus this AM) and given dextrose with repeat improved initially then low again and loosening of CF/CR discussed with pharmacy. Continued issues with abd pain, hypomag (and hypoK in the past admit), concerning for addrenal insufficiency and would like to do stim test in AM given cortisol AM normal but would have expected to be much higher given admission. No fever, chills, chest pain, shortness of breath reported. Did feel like less urine output this morning but improved this afternoon. Questions/concerns addressed at this time. Review of Systems Review of Systems: All systems reviewed & are unremarkable except as noted in HPI & below Physical Exam Physical Exam: General: patient resting comfortably, NAD, non-toxic in appearance, AA&O x 4 Skin: warm, dry, intact, no rashes or lesions HEENT: NC/AT, PERRL, EOMI, anicteric sclera, conjunctiva without injection, external ear normal to inspection and nontender, nares patent, DRY mucus membranes, dentition intact, no oropharyngeal lesions, neck supple, trachea midline, no LAD, no thyromegaly, no JVD Heart: +S1/S2, regular, no m/r/g Lungs: equal air entry bilaterally, no rales/rhonchi/wheezes Abd: +BS, slightly hypoactive, soft, ND, no masses/organomegaly/ascites, no guarding Ext: warm, 2+ pulses in UE/LE bilaterally, no clubbing/cyanosis or edema Neuro: nonfocal, patient AA&O x 4, speech intact, no facial droop, moving all extremities on command with equal strength 5/5 Results & Data Results & Data ([facility]) Vital Signs (Past 12 Hours) Vital Signs Temp Pulse Resp BP Pulse Ox 07/17/21 07:41 36.8 C 83 16 101/68 97 07/16/21 22:06 36.8 C 70 18 104/66 97 Laboratory Results 07/17/21 07/17/21 07/17/21 Range/Units 08:11 07:10 06:04 WBC (4.8-10.8) K/uL RBC (4.2-5.4) M/uL Hgb (12.0-16.0) g/dL Hct (37-47) % MCV (80-100) fL MCH (25-34) pg MCHC (32-36) g/dL RDW Std Deviation (36.4-46.3) fL RDW Coeff of Mil (11.5-14.5) % Plt Count (130-400) K/uL MPV (7.4-10.4) fL Immature Gran % (Auto) % Neut % (Auto) % Lymph % (Auto) % Floyd % (Auto) % Eos % (Auto) % Baso % (Auto) % Neut # (Auto) (1.4-6.5) K/uL Lymph # (Auto) (1.2-3.4) K/uL Floyd # (Auto) (0.11-0.59) K/uL Eos # (Auto) (0-0.5) K/uL Baso # (Auto) (0-0.2) K/uL Immature Gran # (Auto) (0.00-0.02) K/uL Sodium (136-145) mmol/L Potassium (3.5-5.1) mmol/L Chloride (98-107) mmol/L Carbon Dioxide (21-32) mmol/L Anion Gap (3-11) BUN (7-18) mg/dl Creatinine (0.6-1.2) mg/dl Est Cr Clr Drug Dosing ml/min Est GFR ( Amer) ml/min Est GFR (Non-Af Amer) ml/min BUN/Creatinine Ratio (10-20) Glucose (70-99) mg/dl POC Glucose 119 H 117 H (70-99) mg/dl Estimat Average Glucose mg/dl Hemoglobin A1c (4.5-5.6) % Calcium (8.5-10.1) mg/dl Magnesium (1.8-2.4) mg/dl Total Bilirubin (0.2-1) mg/dl Direct Bilirubin (0-0.2) mg/dl AST (15-37) U/L ALT (12-78) U/L Alkaline Phosphatase (45-117) U/L Total Protein (6.4-8.2) gm/dl Albumin (3.4-5.0) gm/dl Lipase (73-393) U/L Procalcitonin (0-0.5) ng/ml Cortisol AM Sample 6.46 (4.3-22.4) mcg/dl Stl C. diff Tox B Gene (Neg) 07/17/21 07/17/21 07/17/21 Range/Units 05:41 05:41 05:41 WBC 7.77 (4.8-10.8) K/uL RBC 4.51 (4.2-5.4) M/uL Hgb 12.6 (12.0-16.0) g/dL Hct 38.2 (37-47) % MCV 84.7 (80-100) fL MCH 27.9 (25-34) pg MCHC 33.0 (32-36) g/dL RDW Std Deviation 41.0 (36.4-46.3) fL RDW Coeff of Mil 13.4 (11.5-14.5) % Plt Count 241 (130-400) K/uL MPV 12.4 H (7.4-10.4) fL Immature Gran % (Auto) 0.3 % Neut % (Auto) 48.5 % Lymph % (Auto) 40.2 % Floyd % (Auto) 9.3 % Eos % (Auto) 1.4 % Baso % (Auto) 0.3 % Neut # (Auto) 3.78 (1.4-6.5) K/uL Lymph # (Auto) 3.12 (1.2-3.4) K/uL Floyd # (Auto) 0.72 H (0.11-0.59) K/uL Eos # (Auto) 0.11 (0-0.5) K/uL Baso # (Auto) 0.02 (0-0.2) K/uL Immature Gran # (Auto) 0.02 (0.00-0.02) K/uL Sodium 139 (136-145) mmol/L Potassium 4.0 (3.5-5.1) mmol/L Chloride 107 (98-107) mmol/L Carbon Dioxide 25 (21-32) mmol/L Anion Gap 8.0 (3-11) BUN 8 (7-18) mg/dl Creatinine 0.57 L (0.6-1.2) mg/dl Est Cr Clr Drug Dosing 174.0 ml/min Est GFR ( Amer) > 150.0 ml/min Est GFR (Non-Af Amer) 131.6 ml/min BUN/Creatinine Ratio 14.6 (10-20) Glucose 134 H (70-99) mg/dl POC Glucose (70-99) mg/dl Estimat Average Glucose 217 mg/dl Hemoglobin A1c 9.2 H (4.5-5.6) % Calcium 8.4 L (8.5-10.1) mg/dl Magnesium 1.6 L (1.8-2.4) mg/dl Total Bilirubin 0.5 (0.2-1) mg/dl Direct Bilirubin < 0.1 (0-0.2) mg/dl AST 6 L (15-37) U/L ALT 36 (12-78) U/L Alkaline Phosphatase 62 (45-117) U/L Total Protein 6.5 (6.4-8.2) gm/dl Albumin 2.7 L (3.4-5.0) gm/dl Lipase (73-393) U/L Procalcitonin (0-0.5) ng/ml Cortisol AM Sample (4.3-22.4) mcg/dl Stl C. diff Tox B Gene (Neg) 07/17/21 07/17/21 07/17/21 Range/Units 04:01 02:05 00:03 WBC (4.8-10.8) K/uL RBC (4.2-5.4) M/uL Hgb (12.0-16.0) g/dL Hct (37-47) % MCV (80-100) fL MCH (25-34) pg MCHC (32-36) g/dL RDW Std Deviation (36.4-46.3) fL RDW Coeff of Mil (11.5-14.5) % Plt Count (130-400) K/uL MPV (7.4-10.4) fL Immature Gran % (Auto) % Neut % (Auto) % Lymph % (Auto) % Floyd % (Auto) % Eos % (Auto) % Baso % (Auto) % Neut # (Auto) (1.4-6.5) K/uL Lymph # (Auto) (1.2-3.4) K/uL Floyd # (Auto) (0.11-0.59) K/uL Eos # (Auto) (0-0.5) K/uL Baso # (Auto) (0-0.2) K/uL Immature Gran # (Auto) (0.00-0.02) K/uL Sodium (136-145) mmol/L Potassium (3.5-5.1) mmol/L Chloride (98-107) mmol/L Carbon Dioxide (21-32) mmol/L Anion Gap (3-11) BUN (7-18) mg/dl Creatinine (0.6-1.2) mg/dl Est Cr Clr Drug Dosing ml/min Est GFR ( Amer) ml/min Est GFR (Non-Af Amer) ml/min BUN/Creatinine Ratio (10-20) Glucose (70-99) mg/dl POC Glucose 124 H 128 H 147 H (70-99) mg/dl Estimat Average Glucose mg/dl Hemoglobin A1c (4.5-5.6) % Calcium (8.5-10.1) mg/dl Magnesium (1.8-2.4) mg/dl Total Bilirubin (0.2-1) mg/dl Direct Bilirubin (0-0.2) mg/dl AST (15-37) U/L ALT (12-78) U/L Alkaline Phosphatase (45-117) U/L Total Protein (6.4-8.2) gm/dl Albumin (3.4-5.0) gm/dl Lipase (73-393) U/L Procalcitonin (0-0.5) ng/ml Cortisol AM Sample (4.3-22.4) mcg/dl Stl C. diff Tox B Gene (Neg) 07/16/21 07/16/21 07/16/21 Range/Units 22:01 19:52 17:08 WBC (4.8-10.8) K/uL RBC (4.2-5.4) M/uL Hgb (12.0-16.0) g/dL Hct (37-47) % MCV (80-100) fL MCH (25-34) pg MCHC (32-36) g/dL RDW Std Deviation (36.4-46.3) fL RDW Coeff of Mil (11.5-14.5) % Plt Count (130-400) K/uL MPV (7.4-10.4) fL Immature Gran % (Auto) % Neut % (Auto) % Lymph % (Auto) % Floyd % (Auto) % Eos % (Auto) % Baso % (Auto) % Neut # (Auto) (1.4-6.5) K/uL Lymph # (Auto) (1.2-3.4) K/uL Floyd # (Auto) (0.11-0.59) K/uL Eos # (Auto) (0-0.5) K/uL Baso # (Auto) (0-0.2) K/uL Immature Gran # (Auto) (0.00-0.02) K/uL Sodium (136-145) mmol/L Potassium (3.5-5.1) mmol/L Chloride (98-107) mmol/L Carbon Dioxide (21-32) mmol/L Anion Gap (3-11) BUN (7-18) mg/dl Creatinine (0.6-1.2) mg/dl Est Cr Clr Drug Dosing ml/min Est GFR ( Amer) ml/min Est GFR (Non-Af Amer) ml/min BUN/Creatinine Ratio (10-20) Glucose (70-99) mg/dl POC Glucose 166 H 232 H 117 H (70-99) mg/dl Estimat Average Glucose mg/dl Hemoglobin A1c (4.5-5.6) % Calcium (8.5-10.1) mg/dl Magnesium (1.8-2.4) mg/dl Total Bilirubin (0.2-1) mg/dl Direct Bilirubin (0-0.2) mg/dl AST (15-37) U/L ALT (12-78) U/L Alkaline Phosphatase (45-117) U/L Total Protein (6.4-8.2) gm/dl Albumin (3.4-5.0) gm/dl Lipase (73-393) U/L Procalcitonin (0-0.5) ng/ml Cortisol AM Sample (4.3-22.4) mcg/dl Stl C. diff Tox B Gene (Neg) 07/16/21 07/16/21 07/16/21 Range/Units 12:23 11:48 11:46 WBC (4.8-10.8) K/uL RBC (4.2-5.4) M/uL Hgb (12.0-16.0) g/dL Hct (37-47) % MCV (80-100) fL MCH (25-34) pg MCHC (32-36) g/dL RDW Std Deviation (36.4-46.3) fL RDW Coeff of Mil (11.5-14.5) % Plt Count (130-400) K/uL MPV (7.4-10.4) fL Immature Gran % (Auto) % Neut % (Auto) % Lymph % (Auto) % Floyd % (Auto) % Eos % (Auto) % Baso % (Auto) % Neut # (Auto) (1.4-6.5) K/uL Lymph # (Auto) (1.2-3.4) K/uL Floyd # (Auto) (0.11-0.59) K/uL Eos # (Auto) (0-0.5) K/uL Baso # (Auto) (0-0.2) K/uL Immature Gran # (Auto) (0.00-0.02) K/uL Sodium 139 (136-145) mmol/L Potassium 4.3 (3.5-5.1) mmol/L Chloride 106 (98-107) mmol/L Carbon Dioxide 26 (21-32) mmol/L Anion Gap 7.0 (3-11) BUN 11 (7-18) mg/dl Creatinine 0.68 (0.6-1.2) mg/dl Est Cr Clr Drug Dosing 145.8 ml/min Est GFR ( Amer) 143.9 ml/min Est GFR (Non-Af Amer) 124.2 ml/min BUN/Creatinine Ratio 16.7 (10-20) Glucose 209 H (70-99) mg/dl POC Glucose 178 H (70-99) mg/dl Estimat Average Glucose mg/dl Hemoglobin A1c (4.5-5.6) % Calcium 8.9 (8.5-10.1) mg/dl Magnesium 1.9 (1.8-2.4) mg/dl Total Bilirubin (0.2-1) mg/dl Direct Bilirubin (0-0.2) mg/dl AST (15-37) U/L ALT (12-78) U/L Alkaline Phosphatase (45-117) U/L Total Protein (6.4-8.2) gm/dl Albumin (3.4-5.0) gm/dl Lipase (73-393) U/L Procalcitonin 0.68 H (0-0.5) ng/ml Cortisol AM Sample (4.3-22.4) mcg/dl Stl C. diff Tox B Gene (Neg) 07/16/21 07/16/21 07/16/21 Range/Units 10: 09:45 09:33 WBC (4.8-10.8) K/uL RBC (4.2-5.4) M/uL Hgb (12.0-16.0) g/dL Hct (37-47) % MCV (80-100) fL MCH (25-34) pg MCHC (32-36) g/dL RDW Std Deviation (36.4-46.3) fL RDW Coeff of Mil (11.5-14.5) % Plt Count (130-400) K/uL MPV (7.4-10.4) fL Immature Gran % (Auto) % Neut % (Auto) % Lymph % (Auto) % Floyd % (Auto) % Eos % (Auto) % Baso % (Auto) % Neut # (Auto) (1.4-6.5) K/uL Lymph # (Auto) (1.2-3.4) K/uL Floyd # (Auto) (0.11-0.59) K/uL Eos # (Auto) (0-0.5) K/uL Baso # (Auto) (0-0.2) K/uL Immature Gran # (Auto) (0.00-0.02) K/uL Sodium 138 (136-145) mmol/L Potassium 4.2 (3.5-5.1) mmol/L Chloride 106 (98-107) mmol/L Carbon Dioxide 26 (21-32) mmol/L Anion Gap 6.0 (3-11) BUN 12 (7-18) mg/dl Creatinine 0.58 L (0.6-1.2) mg/dl Est Cr Clr Drug Dosing 171.0 ml/min Est GFR ( Amer) > 150.0 ml/min Est GFR (Non-Af Amer) 130.8 ml/min BUN/Creatinine Ratio 20.7 H (10-20) Glucose 201 H (70-99) mg/dl POC Glucose 215 H (70-99) mg/dl Estimat Average Glucose mg/dl Hemoglobin A1c (4.5-5.6) % Calcium 8.5 (8.5-10.1) mg/dl Magnesium (1.8-2.4) mg/dl Total Bilirubin (0.2-1) mg/dl Direct Bilirubin (0-0.2) mg/dl AST (15-37) U/L ALT (12-78) U/L Alkaline Phosphatase (45-117) U/L Total Protein (6.4-8.2) gm/dl Albumin (3.4-5.0) gm/dl Lipase 123 (73-393) U/L Procalcitonin (0-0.5) ng/ml Cortisol AM Sample (4.3-22.4) mcg/dl Stl C. diff Tox B Gene Negative Cdiff Gene (Neg) PG Care Time/CCT Total # of Minutes Spent Total Time Spent with Patient: Total time spent is greater than 50% in coordination of care (as documented) at patient's floor/unit and/or counseling patient: Coding Level of Care Code 77505 Subseq Hosp Care Lvl 3 Diagnoses Type 1 diabetes, uncontrolled, with gastroparesis E10.43; K31.84; E10.65 Irritable bowel syndrome with diarrhea K58.0 Gastroparesis K31.84 Anxiety F41.9 Leukocytosis D72.829 Hypoglycemia E16.2 Hypomagnesemia E83.42
[2021-07-17] MEDS: MAGNESIUM SULFATE / D5W 1 GM/100 ML BAG IV SCH ×2 (11:04→12:38)
[2021-07-17] MEDS ORDERED: COSYNTROPIN 250 MCG in SYRINGE 4 ML IV ONE (15:30)
[2021-07-17] MEDS: DEXTROSE 50% 50 ML SYRINGE IV PRN ×3 (16:10→22:11)
[2021-07-17] MEDS: AMOXICILLIN/CLAVULANATE 875 MG TAB PO SCH (16:49)
[2021-07-17] MEDS ORDERED: Nursing to Pharmacy Communication SCH (22:00)
[2021-07-18] MEDS: SODIUM CHLORIDE 0.9% 1000ML 1,000 ML IV SCH (00:37)
[2021-07-18] MEDS ORDERED: INSULIN ASPART 100 UNITS/ML 3 ML PEN SC ONE (02:00)
[2021-07-18] MEDS: INSULIN ASPART 100 UNITS/ML 3 ML PEN SC SCH ×3 (06:13→12:41)
[2021-07-18] MEDS ORDERED: COSYNTROPIN 250 MCG in SYRINGE 4 ML IV ONE ×2 (07:30→08:30)
[2021-07-18 08:24] LABS: Basophils # (auto) 0.01 K/uL (0-0.2); Basophils % (auto) 0.1 %; Eosinophils % (auto) 1.1 %; Hematocrit (blood only) 38.8 % (37-47); Hemoglobin 12.9 g/dL (12.0-16.0); Immature Granulocytes # (auto) 0.01 K/uL (0.00-0.02); Immature Granulocytes % (auto) 0.1 %; Lymphocytes # (auto) 2.35 K/uL (1.2-3.4); Lymphocytes % (auto) 25.2 %; Mean Corpuscular Hemoglobin 28.4 pg (25-34); Mean Corpuscular Hgb Conc 33.2 g/dL (32-36); Mean Corpuscular Volume 85.5 fL (80-100); Mean Platelet Volume 11.4 fL (7.4-10.4); Monocytes # (auto) 0.73 K/uL (0.11-0.59); Monocytes % (auto) 7.8 %; Neutrophils # (auto) 6.14 K/uL (1.4-6.5); Neutrophils % (auto) 65.7 %; Platelet Count 224 K/uL (130-400); RDW Standard Deviation 40.8 fL (36.4-46.3); Red Blood Count 4.54 M/uL (4.2-5.4); White Blood Count 9.34 K/uL (4.8-10.8)
--- NOTE | 2021-07-18 08:49 | Hospitalist Progress Note ---
Date of Service July 18, 2021 Assessment & Plan Admission and Anticipated Discharge Date Admission Date: July 16, 2021 Results & Data Results & Data ([facility]) Vital Signs (Past 12 Hours) Vital Signs Temp Pulse Resp BP BP Pulse Ox 07/18/21 07:29 36.8 C 79 16 113/73 98 07/17/21 22:36 36.6 C 83 18 113/73 99 Laboratory Results 07/18/21 07/18/21 07/18/21 Range/Units 08:09 08:09 08:09 WBC 9.34 (4.8-10.8) K/uL RBC 4.54 (4.2-5.4) M/uL Hgb 12.9 (12.0-16.0) g/dL Hct 38.8 (37-47) % MCV 85.5 (80-100) fL MCH 28.4 (25-34) pg MCHC 33.2 (32-36) g/dL RDW Std Deviation 40.8 (36.4-46.3) fL RDW Coeff of Mil 13.0 (11.5-14.5) % Plt Count 224 (130-400) K/uL MPV 11.4 H (7.4-10.4) fL Immature Gran % (Auto) 0.1 % Neut % (Auto) 65.7 % Lymph % (Auto) 25.2 % [place] % (Auto) 7.8 % Eos % (Auto) 1.1 % Baso % (Auto) 0.1 % Neut # (Auto) 6.14 (1.4-6.5) K/uL Lymph # (Auto) 2.35 (1.2-3.4) K/uL [place] # (Auto) 0.73 H (0.11-0.59) K/uL Eos # (Auto) 0.10 (0-0.5) K/uL Baso # (Auto) 0.01 (0-0.2) K/uL Immature Gran # (Auto) 0.01 (0.00-0.02) K/uL Sodium Pending Potassium Pending Chloride Pending Carbon Dioxide Pending Anion Gap Pending BUN Pending Creatinine Pending Est Cr Clr Drug Dosing Pending Est GFR ( Amer) Pending Est GFR (Non-Af Amer) Pending BUN/Creatinine Ratio Pending Glucose Pending POC Glucose (70-99) mg/dl Calcium Pending Magnesium Pending Cortisol Response Pending Giardia Antigen 07/18/21 07/18/21 07/18/21 Range/Units 08:07 06:50 06:09 WBC (4.8-10.8) K/uL RBC (4.2-5.4) M/uL Hgb (12.0-16.0) g/dL Hct (37-47) % MCV (80-100) fL MCH (25-34) pg MCHC (32-36) g/dL RDW Std Deviation (36.4-46.3) fL RDW Coeff of Mil (11.5-14.5) % Plt Count (130-400) K/uL MPV (7.4-10.4) fL Immature Gran % (Auto) % Neut % (Auto) % Lymph % (Auto) % [place] % (Auto) % Eos % (Auto) % Baso % (Auto) % Neut # (Auto) (1.4-6.5) K/uL Lymph # (Auto) (1.2-3.4) K/uL [place] # (Auto) (0.11-0.59) K/uL Eos # (Auto) (0-0.5) K/uL Baso # (Auto) (0-0.2) K/uL Immature Gran # (Auto) (0.00-0.02) K/uL Sodium Potassium Chloride Carbon Dioxide Anion Gap BUN Creatinine Est Cr Clr Drug Dosing Est GFR ( Amer) Est GFR (Non-Af Amer) BUN/Creatinine Ratio Glucose POC Glucose 150 H 129 H (70-99) mg/dl Calcium Magnesium Cortisol Response Giardia Antigen Pending 07/18/21 07/18/21 07/18/21 Range/Units 04:10 02:05 00:07 WBC (4.8-10.8) K/uL RBC (4.2-5.4) M/uL Hgb (12.0-16.0) g/dL Hct (37-47) % MCV (80-100) fL MCH (25-34) pg MCHC (32-36) g/dL RDW Std Deviation (36.4-46.3) fL RDW Coeff of Mil (11.5-14.5) % Plt Count (130-400) K/uL MPV (7.4-10.4) fL Immature Gran % (Auto) % Neut % (Auto) % Lymph % (Auto) % [place] % (Auto) % Eos % (Auto) % Baso % (Auto) % Neut # (Auto) (1.4-6.5) K/uL Lymph # (Auto) (1.2-3.4) K/uL [place] # (Auto) (0.11-0.59) K/uL Eos # (Auto) (0-0.5) K/uL Baso # (Auto) (0-0.2) K/uL Immature Gran # (Auto) (0.00-0.02) K/uL Sodium Potassium Chloride Carbon Dioxide Anion Gap BUN Creatinine Est Cr Clr Drug Dosing Est GFR ( Amer) Est GFR (Non-Af Amer) BUN/Creatinine Ratio Glucose POC Glucose 138 H 104 H 81 (70-99) mg/dl Calcium Magnesium Cortisol Response Giardia Antigen 07/17/21 07/17/21 07/17/21 Range/Units 22:29 22:03 22:01 WBC (4.8-10.8) K/uL RBC (4.2-5.4) M/uL Hgb (12.0-16.0) g/dL Hct (37-47) % MCV (80-100) fL MCH (25-34) pg MCHC (32-36) g/dL RDW Std Deviation (36.4-46.3) fL RDW Coeff of Mil (11.5-14.5) % Plt Count (130-400) K/uL MPV (7.4-10.4) fL Immature Gran % (Auto) % Neut % (Auto) % Lymph % (Auto) % [place] % (Auto) % Eos % (Auto) % Baso % (Auto) % Neut # (Auto) (1.4-6.5) K/uL Lymph # (Auto) (1.2-3.4) K/uL [place] # (Auto) (0.11-0.59) K/uL Eos # (Auto) (0-0.5) K/uL Baso # (Auto) (0-0.2) K/uL Immature Gran # (Auto) (0.00-0.02) K/uL Sodium Potassium Chloride Carbon Dioxide Anion Gap BUN Creatinine Est Cr Clr Drug Dosing Est GFR ( Amer) Est GFR (Non-Af Amer) BUN/Creatinine Ratio Glucose POC Glucose 131 H 35 L* 33 L* (70-99) mg/dl Calcium Magnesium Cortisol Response Giardia Antigen 07/17/21 07/17/21 07/17/21 Range/Units 20:06 17:56 17:26 WBC (4.8-10.8) K/uL RBC (4.2-5.4) M/uL Hgb (12.0-16.0) g/dL Hct (37-47) % MCV (80-100) fL MCH (25-34) pg MCHC (32-36) g/dL RDW Std Deviation (36.4-46.3) fL RDW Coeff of Mil (11.5-14.5) % Plt Count (130-400) K/uL MPV (7.4-10.4) fL Immature Gran % (Auto) % Neut % (Auto) % Lymph % (Auto) % [place] % (Auto) % Eos % (Auto) % Baso % (Auto) % Neut # (Auto) (1.4-6.5) K/uL Lymph # (Auto) (1.2-3.4) K/uL [place] # (Auto) (0.11-0.59) K/uL Eos # (Auto) (0-0.5) K/uL Baso # (Auto) (0-0.2) K/uL Immature Gran # (Auto) (0.00-0.02) K/uL Sodium Potassium Chloride Carbon Dioxide Anion Gap BUN Creatinine Est Cr Clr Drug Dosing Est GFR ( Amer) Est GFR (Non-Af Amer) BUN/Creatinine Ratio Glucose POC Glucose 104 H 114 H 53 L* (70-99) mg/dl Calcium Magnesium Cortisol Response Giardia Antigen 07/17/21 07/17/21 07/17/21 Range/Units 17:23 16:35 16:05 WBC (4.8-10.8) K/uL RBC (4.2-5.4) M/uL Hgb (12.0-16.0) g/dL Hct (37-47) % MCV (80-100) fL MCH (25-34) pg MCHC (32-36) g/dL RDW Std Deviation (36.4-46.3) fL RDW Coeff of Mil (11.5-14.5) % Plt Count (130-400) K/uL MPV (7.4-10.4) fL Immature Gran % (Auto) % Neut % (Auto) % Lymph % (Auto) % [place] % (Auto) % Eos % (Auto) % Baso % (Auto) % Neut # (Auto) (1.4-6.5) K/uL Lymph # (Auto) (1.2-3.4) K/uL [place] # (Auto) (0.11-0.59) K/uL Eos # (Auto) (0-0.5) K/uL Baso # (Auto) (0-0.2) K/uL Immature Gran # (Auto) (0.00-0.02) K/uL Sodium Potassium Chloride Carbon Dioxide Anion Gap BUN Creatinine Est Cr Clr Drug Dosing Est GFR ( Amer) Est GFR (Non-Af Amer) BUN/Creatinine Ratio Glucose POC Glucose 58 L* 107 H 44 L* (70-99) mg/dl Calcium Magnesium Cortisol Response Giardia Antigen 07/17/21 07/17/21 Range/Units 16:03 11:56 WBC (4.8-10.8) K/uL RBC (4.2-5.4) M/uL Hgb (12.0-16.0) g/dL Hct (37-47) % MCV (80-100) fL MCH (25-34) pg MCHC (32-36) g/dL RDW Std Deviation (36.4-46.3) fL RDW Coeff of Mil (11.5-14.5) % Plt Count (130-400) K/uL MPV (7.4-10.4) fL Immature Gran % (Auto) % Neut % (Auto) % Lymph % (Auto) % [place] % (Auto) % Eos % (Auto) % Baso % (Auto) % Neut # (Auto) (1.4-6.5) K/uL Lymph # (Auto) (1.2-3.4) K/uL [place] # (Auto) (0.11-0.59) K/uL Eos # (Auto) (0-0.5) K/uL Baso # (Auto) (0-0.2) K/uL Immature Gran # (Auto) (0.00-0.02) K/uL Sodium Potassium Chloride Carbon Dioxide Anion Gap BUN Creatinine Est Cr Clr Drug Dosing Est GFR ( Amer) Est GFR (Non-Af Amer) BUN/Creatinine Ratio Glucose POC Glucose 45 L* 141 H (70-99) mg/dl Calcium Magnesium Cortisol Response Giardia Antigen PG Care Time/CCT Total # of Minutes Spent Total Time Spent with Patient: Total time spent is greater than 50% in coordination of care (as documented) at patient's floor/unit and/or counseling patient: Coding
[2021-07-18 08:52] LABS: BUN Creatinine Ratio 15.7 (10-20); Blood Urea Nitrogen 9 mg/dl (7-18); Calcium 8.6 mg/dl (8.5-10.1); Carbon Dioxide 28 mmol/L (21-32); Chloride 108 mmol/L (98-107); Est GFR (African American) > 150.0 ml/min; Est GFR (Non-African American) 130.8 ml/min; Glucose 166 mg/dl (70-99); Magnesium 1.9 mg/dl (1.8-2.4); Potassium 3.7 mmol/L (3.5-5.1); Sodium 139 mmol/L (136-145)
--- NOTE | 2021-07-18 09:15 | Gastrointestinal Consultation ---
Date of Consultation July 18, 2021 Assessment & Plan (1) Gastroparesis: -Continue supportive care. -Continue Erythromycin as presently prescribed. -Would emphasize compliance with diabetic gastroparesis diet as she advances her po intake. -Would also emphasize importance of glycemic control as this is exacerbating her GI symptoms. -Would discontinue Viberzi. Colonoscopy showed retained stool in colon and CT shows an ileus. Suspect her diarrhea is due to overflow issues from constipation rather than true diarrhea. -I will have our staff work on getting Motegr[employer] approved in the outpatient setting as this has been known to improve gastroparesis & constipation issues. -She will proceed with [facility] evaluation as previously planned. History of Present Illness Reason for Consultation: Gastroparesis Attending Physician: Douglas Murillo History of Present Illness Patient is a 21 yo female with diabetic gastroparesis and diarrhea seen in our clinic by Dr. Watkins. She has tried conventional therapies including antiemetics, PPIs, H2 blockers, Reglan, & gastroparesis diet. She was recently advised to take Erythromycin and Viberzi while she awaited tertiary evaluation for her gastroparesis at [facility]. In the interim, she did have a colonoscopy with semi-formed stool noted throughout the colon. She did not fill her Erythromycin prescription and presented to the hospital due to abdominal pain and discomfort. She reports improvement of her discomfort at present. She notes fatigue. No pertinent family history. She has suboptimally controlled diabetes and was hypoglycemic upon presentation to the ED. Abdominal CT scan in the ED shows gaseous distention of the colon with distended but non-dilated loops of small bowel consistent with an ileus. Allergies Allergy/AdvReac Type Severity Reaction Status Date / Time Lady Bugs Allergy Intermediate Swelling Uncoded 07/16/21 00:09 and hives Home Medications Medication Instructions Recorded Confirmed Type levonorgestrel-ethinyl estradiol 1 tab PO QAM 07/13/19 07/16/21 History 0.1 mg-20 mcg tablet (Lutera (28)) fluticasone propionate 50 2 spray INTRANASAL DAILY PRN 04/26/21 07/16/21 History mcg/actuation nasal spray,suspension blood sugar diagnostic (OneTouch #100 ea 04/30/21 07/12/21 Rx Verio test strips) cetirizine 10 mg tablet 10 mg PO QAM 30 Days #30 tab 04/30/21 07/16/21 Rx lancets 33 gauge (OneTouch Delica #100 ea 04/30/21 07/12/21 Rx Lancets) pantoprazole 40 mg tablet,delayed 40 mg PO BID 30 Days #60 tab 04/30/21 07/16/21 Rx release pen needle, diabetic 32 gauge x #50 ea 04/30/21 07/12/21 Rx 3/16" blood-glucose meter,continuous #1 ea 05/23/21 07/12/21 Rx (Dexcom G6 Electric Shaver Mechanic) blood-glucose sensor (Dexcom G6 #3 ea 05/23/21 07/12/21 Rx Sensor) blood-glucose transmitter (Dexcom #1 ea 05/23/21 07/12/21 Rx G6 Transmitter) insulin glargine 100 unit/mL (3 25 unit SUBCUT QAM #15 ml 05/24/21 07/16/21 Rx mL) subcutaneous pen (Lantus Solostar U-100 Insulin) escitalopram oxalate 20 mg tablet 20 mg PO DAILY #30 tab 05/28/21 07/16/21 Rx (Lexapro) Medical Marijuana 1 dose INHALATION UD PRN 06/12/21 07/16/21 History eluxadoline 75 mg tablet (Viberzi) 75 mg PO BID #60 tab 07/12/21 07/16/21 Rx erythromycin 250 mg tablet 250 mg PO TIDM #90 tab 07/12/21 07/16/21 Rx insulin lispro 100 unit/mL 0 unit SUBCUT DIRECTED 07/16/21 07/16/21 History subcutaneous pen (Humalog KwikPen (U-100) Insulin) ondansetron 4 mg disintegrating 4 mg PO TID PRN 07/16/21 07/16/21 History tablet amoxicillin 875 mg-potassium 1 tab PO BIDM #18 tab 07/17/21 Rx clavulanate 125 mg tablet (Augmentin) magnesium 250 mg tablet 250 mg PO DAILY #30 tab 07/17/21 Rx Patient History Medical History Anxiety and depression Diabetes mellitus type 1 Gastritis Gastroparesis Hx of diabetic retinopathy IBS (irritable bowel syndrome) Surgical History H/O eye surgery History of colonoscopy History of ear surgery History of esophagogastroduodenoscopy (EGD) History of myringotomy History of tonsillectomy [place] teeth removed Family History Mother Family history of diabetes mellitus Grandmother (Maternal) Family history of diabetes mellitus Other Breast cancer Myocardial infarction No family history of adverse response to anesthesia Ovarian cancer Prostate cancer Denies family history of Colorectal cancer Social History Smoking Status: Never smoker Second Hand Exposure: No; Do You Dip or Chew Tobacco: No; Hx Alcohol Use: No Hx Substance Use: No Preferred Language: Hebrew Communication Ability: Effective Superior Court Justice Required: No Beliefs That Will Affect Care: None Current Living Situation: Parent Current Living Situation Comment: LIVES WITH PARENTS Other Information That Helps Us Care for You: No Feels Safe at Home: Yes Safety Concerns: Feels Safe At This Time Dental Care, Regularly: Yes Physical Activity Frequency: 5-6 Times per Week Assistive Devices: None Assistive Devices Comment: continuous blood glucose monitor on RLQ Review of Systems Review of Systems: All systems reviewed & are unremarkable except as noted in HPI & below Constitutional: + fatigue Respiratory: no problem reported Cardiovascular: no problem reported Gastrointestinal: + abdominal pain (improving); no diarrhea/loose stools Musculoskeletal: no problem reported Integumentary: no problem reported Psychiatric: no problem reported Physical Exam Constitutional: WD/WN, vitals as above Respiratory: normal respiratory effort, lungs clear to auscultation Cardiovascular: RRR, no murmur, no edema Gastrointestinal (Abdomen): normal bowel sounds, soft, nontender, no hepatosplenomegaly Musculoskeletal: Head/Neck/Chest: normocephalic Psychiatric: Orientation: alert and oriented x 3 Results & Data ([facility]) Vital Signs (Past 12 Hours) Vital Signs Temp Pulse Resp BP BP Pulse Ox 07/18/21 07:29 36.8 C 79 16 113/73 98 07/17/21 22:36 36.6 C 83 18 113/73 99 PG Care Time/CCT Total # of Minutes Spent Total Time Spent with Patient: Total time spent is greater than 50% in coordination of care (as documented) at patient's floor/unit and/or counseling patient: Coding Level of Care Code 10065 Inpt Consult Level 4 Diagnoses Gastroparesis K31.84
[2021-07-18] MEDS: ESCITALOPRAM OXALATE 20 MG TAB PO SCH (09:53)
[2021-07-18] MEDS: CETIRIZINE HCL 10 MG TABLET PO SCH (09:53)
[2021-07-18] MEDS: PANTOprazole 40 MG TAB PO SCH (09:53)
[2021-07-18] MEDS: AMOXICILLIN/CLAVULANATE 875 MG TAB PO SCH (09:53)
[2021-07-18] MEDS: ERYTHROMYCIN DELAYED RELEASE 250 MG CAP PO SCH ×2 (09:53→12:39)
[2021-07-18] MEDS: ONDANSETRON INJ 2 MG/ML 2 ML VIAL IV PRN (09:57)
[2021-07-18] MEDS: INSULIN GLARGINE SOLOSTAR 100 UNITS/ML 3 ML PEN SC SCH (10:12)
--- NOTE | 2021-07-18 10:25 | Pharmacy Report ---
Pharmacy Glycemic Short Note 2 - Date of Service July 18, 2021 - Glycemic Short BSG Results (Last 24 hours): 07/17/21 07/17/21 07/17/21 11:56 16:03 16:05 Glucose POC Glucose 141 H 45 L* 44 L* 07/17/21 07/17/21 07/17/21 16:35 17:23 17:26 Glucose POC Glucose 107 H 58 L* 53 L* 07/17/21 07/17/21 07/17/21 17:56 20:06 22:01 Glucose POC Glucose 114 H 104 H 33 L* 07/17/21 07/17/21 07/18/21 22:03 22:29 00:07 Glucose POC Glucose 35 L* 131 H 81 07/18/21 07/18/21 07/18/21 02:05 04:10 06:09 Glucose POC Glucose 104 H 138 H 129 H 07/18/21 07/18/21 07/18/21 08:07 08:09 09:59 Glucose 166 H POC Glucose 150 H 150 H OUTPATIENT ANTIDIABETIC REGIMEN: * Lantus 25 units qAM * Humalog with CR of 8 ASSESSMENT: 07/18/21: * Patient received total of 25 units of insulin yesterday which was reduced from 45 units total the day before. Basal insulin= 20 units and bolus Novolog = 5 units received yesterday. * Pt became hypoglycemic in the evening yesterday and around midnight. Novolog CF/CR was loosened at that time. * Diet changed to NPO at midnight. Basal insulin reduced 50% this AM. * Fasting BSG today = 129 mg/dl. Will tighten Novolog CF with noon, in case BSG trends up. Continued with loose carb ratio. 07/16/21 * Ms Diaz is a 21 y/o F with a PMH of T1DM who presents with hypoglycemia, N/V . * BSGs while at hospital were 142-191-216 mg/dL. Patient has decreased PO intake. * Lantus with 20% reduction give this morning due to decreased PO intake. Scale for tomorrow based upon BSG. * Novolog that was previously effective chosen. PLAN FOR INPATIENT GLYCEMIC CONTROL: * Basal insulin * Lantus 10-18 units SQ daily (18 units if BSG > 180 mg/dL). Received 10 units today AM. * Once diet resumed, plan to adjust up the dose scale from 10 to 15 units. * Bolus insulin: loosened CR * NovoLog per scale ACHS or Q6hrs while NPO * Goal Range: Low 110 mg/dL - High 140 mg/dL * Correction Factor: 20 mg/dL/unit * Nutritional / Prandial insulin per carb ratio of 1 unit per 9 grams CHO consumed PLAN FOR DISCHARGE: * Continue plan to follow-up with [facility] endocrinology
--- NOTE | 2021-07-18 11:22 | Discharge Summary ---
Date of Service July 18, 2021 Admission HPI Per Admitting Provider Sonia Diaz is a 21yo female with history of poorly controlled Type I DM on Lantus 25u qAM, ISS with 1u/8g CHO consumed(A1C=14.4) presenting with hypoglycemia. Patient states that she was up all night last night with nausea, vomiting and abdominal pain - feels that her symptoms are similar to her gastroparesis. This AM when she woke up her blood sugar was elevated at 222. She ate some turkey and cheese for breakfast and took her Lantus at around 11:00. She ate lunch consisting of yogurt, peanut butter, pretzels and goldfish crackers and took 4 u of Novolog. She reports her blood sugar starting to drop around 14:00. She is unaware of her hypoglycemia. She was at work when her Dexcom beeped "low" at 40. EMS was called and her blood sugar on arrival was reportedly 19. She was administered glucose and brought to [facility]. Initially hypothermic with rectal temp of 34, now improved. Patient presently feeling well. She reports chronic diarrhea and abdominal pain. Otherwise, no new complaints. Has had episodes of hypoglycemia before. Has an appointment to see Endocrinology later this month. ER Course: D5NSS at 125mL/hr Admission Exam Per Admitting Provider General: patient resting comfortably, NAD, non-toxic in appearance, AA&O x 4 Skin: warm, dry, intact, no rashes or lesions HEENT: NC/AT, PERRL, EOMI, anicteric sclera, conjunctiva without injection, external ear normal to inspection and nontender, nares patent, moist mucus membranes, dentition intact, no oropharyngeal lesions, neck supple, trachea midl ine, no LAD, no thyromegaly, no JVD Heart: +S1/S2, regular, no m/r/g Lungs: equal air entry bilaterally, no rales/rhonchi/wheezes Abd: +BS, soft, NT/ND, no masses/organomegaly/ascites Ext: warm, 2+ pulses in UE/LE bilaterally, no clubbing/cyanosis or edema Neuro: nonfocal, patient AA&O x 4, speech intact, no facial droop, moving all extremities on command with equal strength 5/5 Principal Diagnosis Hypoglycemia Discharge Exam Constitutional WD/WN, vitals as above cooperative and comfortable; no acute distress Eyes PERRL, conjunctivae normal, anicteric sclerae ENMT external ear and nose normal, oropharynx normal Neck trachea midline, no thyromegaly Respiratory normal respiratory effort, lungs clear to auscultation Cardiovascular RRR, no murmur, no edema Gastrointestinal (Abdomen) normal bowel sounds, soft, nontender, no hepatosplenomegaly Musculoskeletal no cyanosis or clubbing, extremities motor strength 5/5 Skin no rashes, warm and dry Neurologic PERRL, EOMI, accommodation nl, no face palsy, no dysarthria Psychiatric A+Ox3, euthymic affect Genitourinary no sevilla Lymphatic no cervical or axillary lymphadenopathy Discharge Data Allergies Allergy/AdvReac Type Severity Reaction Status Date / Time Bugjackie Allergy Intermediate Swelling Uncoded 07/16/21 00:09 and hives Consultations 07/16/21 18:23 Consult Gastroenterology Routine Ordered Studies 07/16/21 11:45 CT abd pelvis IV con only Routine Diabetes Follow up Diabetes Follow-up Needed for HgbA1c >9% Hospital Course (1) Hypoglycemia: In DM I since age 11, most recent A1c was 14.4 Patient with hypoglycemia prior to arrival, hypothermic, with WBC 24k A1c in 9s on repeat but per Dexcom report in 7s reviewed by DM educator Hypoglycemia Had not had any further hypoglycemic until afternoon 10 in the 50s persistant, improved Decreased AM Lantus and had additional lows to the 30s evening 07/17 however had decreased appetite Discussion with informatics educator and patient typically on 25U lantus QAM with 1:8 CHO SSI during the day but frequently beeping low on Dexcom 4/5 days a week and when low stays low --> decided to decreased to 20u QAM and discontinue her sliding scale at discharge and monitor sugars. conservation educator to check back in couple days to see trending and patient may need some mealtime coverage pending trend --> She has an appointment with Endocrinology later this month with Emiliano Clinton Concerns for possible adrenal insufficiency given WBC elevation/hypothermic on admission with AM Cortisol only being 6.46 however she did have good response after cosyntropyn stimulation test --> Question possible underlying renal wasting pathology ie Gittlemans/similar --> set up Nephrology at follow up. Started on magnesium daily (mother with issues as well) but K wnl. Had previously been as low as 2.5 this summer during admission Sugars remained stable prior to discharge and alerted for warning signs/when to return Abdominal Pain chronic but increased prior to admit with n/v as usual with her gastroparesis WBC 24k on admit with elevated procalcitonin and abd pain prompting abdominal imaging: CTA/P with Prominent gas and fluid distention of the large bowel without focal wall thickening. Distended but nondilated loops of small bowel are seen. Findings are not consistent with small bowel obstruction, but may represent ileus with gastroparesis or less likely enteritis. Zosyn --> Augmentin at discharge. Stool studies without abn to date Rotavirus pending at time of discharge cdiff testing negative tolerating advanced diet without pain continues with diarrhea and GI consulted during admission with plans for Motegr ity at discharge for possible suspected overflow issues from constipation rather than true diarrhea, however noted ALL LIQUID STOOL during prior c-scope and recomended she discuss with primary GI on follow up 07/22 to see about continuing with plan for her Vibrezi which she hadn't gotten approved yet prior to admission Abdominal pain resolved prior to discharge. Abd soft, non-tender and moving jovanni wels as typical for herself (2) Type 1 diabetes, uncontrolled, with gastroparesis: A1c improving Has Dexcom in place Pharmacy consulted for glycemic management as above Endocrine follow up later this month At discharge--> decreased QAM Lantus to 20u to prevent lows. Stopped sliding scale and to see how she trends. Educator to touch base in couple days to see if any issues (3) Leukocytosis: WBC 24k, could have been reactive from n/v however positive procal and findings on CT as above concerning for infectious etiology Zosyn started 07/16 WBC now wnl, patient remained afebrile Switched to Augmentin and sent at d/c (4) Irritable bowel syndrome with diarrhea: Chronic -Continue Eloxadoline 75mg po BID. Patient may take home medication (has not yet had this approved by insurance yet) Gi consulted as above Now w/ constipation (resolved) --> GI recs for Motegrity as above but rec she follow up with Dr. Watkins prior to this given liquid stool on c-scope as above (5) Gastroparesis: Chronic -Continue Erythromycin 250mg po TID (placed on ER here but hasn't picked up usual medications--> hold while on Augmentin at d/c) -Zofran PRN -Protonix 40mg po BID (also likely contributing to her low magnesium) (6) Hypomagnesemia: repeat again low at 1.6 cdiff negative as above Repeat wnl after 2gm IV --> Discussed possible underlying salt wasting/renal pathology/genetic disorder as above and set up follow up with Nephrology at discharge for further work-up In meantime instructed to continue magnesium supplementation at discharge to help keep stores normal K was normal (7) Anxiety: Chronic -Continued escitalopram Discharged home. F/U GI, [facility], Endocrinology, Nephrology and PCP as above Total Time Total Time Spent Total Time Spent (In Minutes): 65 Discharge Plan Discharge Items Patient Disposition: Home - Self-Care Reason For Visit: HYPOGLYCEMIA Discharge Diagnosis: Hypoglycemia, Enteritis Goals: You have been hospitalized for an acute medical problem. During your stay at [facility], we have made an effort to correct the problem that brought you to the hospital while keeping you as comfortable as possible. Medications were used to bring your condition under control and your discharge instructions will include directions for any medications you should take after leaving the hospital. Please make sure you see your Primary Care Provider as part of your follow up plan. Activity: Resume your previous activity Non-emergency contact: Primary Care Provider and Specialist Call non-emergency contact if: you have any medication questions, your symptoms worsen and your pain is not controlled Follow-up/Referrals: Cristo Purvis MD [Physician] - 08/01/21 9:30 am (as previously scheduled) Sampson Ramírez DO [Physician] - 08/09/21 3:00 pm Munira Altamirano PA-C [Primary Care Provider] - 07/25/21 10:15 am Bimal Watkins MD [Physician] - 07/22/21 4:00 pm Diet: Carb Count or DM1 Addtl Attending Provider Instructions: You have been hospitalized for hypoglycemia. Your sugars have been stable during admission however white count was elevated imaging of your belly was concerning for infection with these values but there was not specific findings. Stool studies have been negative to date, however given findings you were started on antibiotics and these lab values have improved. You are going to be continued on Augmentin TWICE daily for total of 7 days to cover for any abdominal infection. Your urine was negative for infection but did show some bladder wall thickening. It may be worthwhile to discuss with your PCP about follow up with Urology for further evaluation if symptoms persist. Regarding your insulin, your values have been MUCH improved and reviewed by informatics educator during your stay. Given lows during work, it may be that you aren't eating throughout the day/sufficient meals. After discussion with informatics educator and lows in the morning (which are likely from long acting lantus), we are recommending trialing decreasing your Lantus to 20 units in the morning and to avoid covering carbs throughout the day. The informatics educator will call in a couple of day to help monitor trends, and if blood sugars start creeping back up then we will know we need to restart additional short acting coverage during the day. This will also help with adjustments when you have follow up with Endocrinology later this month to see where you are at with these changes. You should also watch carbohydrate/simple sugar intake with your gastroparesis and make alterations to help facilitate GI motility as crackers/cupcakes/etc can cause worsening of these symptoms. --> Per GI, they are recommending NOT to start the Vibrezi but are working on an additional medication to start at discharge on outpatient basis while they work on approval, however you should discuss with your primary experimental preflight mechanic before starting this medication as this is felt to treat more of an overflow issue after constipation and you have been treated for such in the past. Your magnesium was low, which has been low in the past as well and likely from your reflux medication. This has been replaced during your stay, however you should take a daily magnesium to help with this as symptoms can cause cramping and other discomfort and could worsen your symptoms. Of note, I also checked a morning coritsol (measure of our bodies natural steroid) and this was normal, but on the lower end. However, cosyntropn stimulation test did indicate you have an adequate response and this is unlikely. As discuss, given family issues with magnesium and prior low potassium during prior admission does give concerns for genetic disorders to include Gittlemans which causes us to loose potassium and magnesium and can be treated with replacement of these. For this reason, we are recommending follow up with Nephrology at discharge. Appointment has been made for 08/[address] Ramírez. It is important for you to keep follow up with your PCP and Endocrinology and please continue follow up with GI/[facility] as previously scheduled. --> GI will be working on getting a new medication approved called Oren in the outpatient setting and you should continue the erythromycin as already to be taking. Please return to the emergency department with any fever, chills, chest pain, shortness of breath, worsening abdominal pain, inability to keep up with oral intake, or for any other symptoms that are concerning for you. It has been a pleasure being a part of the medical team providing for you while you have been in the hospital. Take care! Pending Studies at Discharge: Yes Stand-Alone Forms: [facility] [employer], Work/School Release, Smoking Cessation Medications and DC Order Prescriptions: New magnesium 250 mg tablet 250 mg PO DAILY Qty: 30 RF: 0 amoxicillin-pot clavulanate [Augmentin] 875-125 mg tablet 1 tab PO BID Qty: 10 RF: 0 Continued escitalopram oxalate [Lexapro] 20 mg tablet 20 mg PO DAILY Qty: 30 RF: 3 (DME) DexM Squared Films G6 Sensor Device See Rx Instructions .Route Qty: 3 RF: 0 (DME) Dexcom G6 Transmitter Device See Rx Instructions .Route Qty: 1 RF: 0 (DME) Dexcom G6 Signals Analyst Misc See Rx Instructions .Route Qty: 1 RF: 0 erythromycin 250 mg tablet 250 mg PO TIDM Qty: 90 RF: 0 levonorgestrel-ethinyl estrad [Lutera (28)] 0.1-20 mg-mcg Tablet 1 tab PO QAM RF: 0 fluticasone propionate 50 mcg/actuation spray,suspension 2 spray INTRANASAL DAILY PRN (Reason: Congestion) RF: 0 cetirizine 10 mg Tablet 10 mg PO QAM 30 Days Qty: 30 RF: 3 pantoprazole 40 mg Tablet,Delayed Release (Dr/Ec) 40 mg PO BID 30 Days Qty: 60 RF: 1 (DME) pen needle, diabetic 32 gauge x 3/16" needle See Rx Instructions .Route Qty: 50 RF: 3 (DME) OneTouch Verio test strips Strip See Rx Instructions .Route Qty: 100 RF: 3 (DME) lancets [OneTouch Delica Lancets] 33 gauge misc See Rx Instructions .Route Qty: 100 RF: 3 Medical Marijuana 1 dose inhalation UD PRN (Reason: Anxiety) RF: 0 ondansetron 4 mg tablet,disintegrating 4 mg PO TID PRN (Reason: NAUSEA/VOMITING) RF: 0 Changed Lantus Solostar U-100 Insulin 100 unit/mL (3 mL) insulin pen 20 unit subcut QAM Qty: 15 RF: 3 Discontinued Viberzi 75 mg tablet 75 mg PO BID Qty: 60 RF: 2 insulin lispro [Humalog KwikPen Insulin] 100 unit/mL insulin pen 0 unit subcut DIRECTED RF: 0 Discharge Orders: Discharge Order (Routine); Ordered 07/18/21 Ordered By: Gela Hoffman/Other Patient Handouts: Hypoglycemia (Low Blood Sugar) Admission Data Admit Date/Time: 07/16/21 05:19 Attending Provider: Douglas Murillo Admit Provider: Lissa Lima Primary Care Provider: Munira Altamirano Other Providers: Bimal Watkins Other Interventions: Discharge Summary Assessment (RN) Last Done: 07/18/21 14:31 Supervising Physician Co-Signing Physician Notes Attending Attestation and Discharge Note: Pt seen/examined, chart reviewed in detail, care plan d/w NISSA Carranza. I agree w/ the davis components of her discharge documentation. 21yo female with T1DM presented with hypoglycemia in the setting of recent nausea, vomiting, and abdominal pain. With respect to her GI symptoms she underwent CT abd/pelvis that showed the following - "The large bowel is distended with liquid contents noted to the level of the descending colon. Multiple distended but nondilated small bowel loops are seen with short air-fluid levels. The appendix is unremarkable. The stomach and duodenum feature a large amount of air and fluid contents." The latter stomach findings likely were from her gastroparesis. However, the etiology of the distended small bowel loops was uncertain -- due to generalized motility issues?? In addition to the above she had a leukocytosis of 24,000 upon admission. She was seen by GI during the stay who recommended discontinuation of Viberzi medication, f/u with [facility], and the initiation of Motegrity as an outpatient for her gastroparesis. Of note - wbc count normalized while here, cosyntropin stim test was normal, and patient was tolerating a diet prior to discharge. It was felt that her presenting hypoglycemia was simply from over-medication and appropriate adjustments in her insulin were made while hospitalized. Discharge exam: gen - NAD mouth - no thrush heart - RRR, s1 s2, no murmur lungs - cta b/l abd - soft, NT, ND, BS+ ext - no edema psych - a/o x 3 Douglas Murillo MD Coding Level of Care Code D/C DAY MANAGEMENT >30 MINS Diagnoses Hypoglycemia E16.2 Type 1 diabetes, uncontrolled, with gastroparesis E10.43; K31.84; E10.65 Leukocytosis D72.829 Irritable bowel syndrome with diarrhea K58.0 Gastroparesis K31.84 Hypomagnesemia E83.42 Anxiety F41.9
== END 2021-07-18 15:25 | disposition home or self-care (01) | DRG 639 ==
LOC: ED 23:20 → SUATTDRO 07-16 05:19 → 3N 07-16 05:19

== ENCOUNTER 2021-12-04 23:14 | Inpatient (IN) ==
[2021-12-04] MEDS ORDERED: levETIRAcetam 1,000 MG in 0.9 % SODIUM CHLORIDE 100 ML IV STA (23:21)
[2021-12-04] MEDS ORDERED: PROPOFOL IV EMULSION 10 MG/ML 100 ML VIAL IV ONE (23:22)
[2021-12-04] MEDS ORDERED: PROPOFOL BOLUS FROM BAG IV PRN (23:23)
[2021-12-04] MEDS ORDERED: STAT IV Infusion **Titration per Protocol STA (23:23)
[2021-12-04] MEDS: propofoL 1,000 MG/100 ML VIAL IV SCH (23:24)
[2021-12-04] MEDS ORDERED: SODIUM CHLORIDE 0.9% 1000ML 1,000 ML IV SCH (23:30)
[2021-12-04] MEDS ORDERED: LORazepam 2 MG/1 ML VIAL IV PRN (23:31)
[2021-12-04 23:36] LABS: Hematocrit (blood only) 42.2 % (37-47); Hemoglobin 14.1 g/dL (12.0-16.0); Mean Corpuscular Hemoglobin 28.7 pg (25-34); Mean Corpuscular Hgb Conc 33.4 g/dL (32-36); Mean Corpuscular Volume 85.8 fL (80-100); Mean Platelet Volume 12.5 fL (7.4-10.4); Platelet Count 285 K/uL (130-400); RDW Coefficient of Variation 13.6 % (11.5-14.5); RDW Standard Deviation 42.1 fL (36.4-46.3); Red Blood Count 4.92 M/uL (4.2-5.4); White Blood Count 22.28 K/uL (4.8-10.8)
[2021-12-04 23:42] LABS: iSTAT Creatinine 0.7 mg/dl (0.6-1.3); iSTAT Ionized Calcium 1.14 mmol/l (1.12-1.32); iSTAT Potassium 4.7 mmol/L (3.3-5.0)
--- NOTE | 2021-12-04 23:47 | Emergency Department Note ---
Past Med/Surg History Medical History Anxiety and depression Diabetes mellitus type 1 Diabetes type 1, uncontrolled Diabetic retinopathy associated with type 1 diabetes mellitus Gastritis Gastroparesis Hx of diabetic retinopathy Hypoglycemia due to insulin Hypoglycemia unawareness associated with type 1 diabetes mellitus IBS (irritable bowel syndrome) Surgical History H/O eye surgery History of colonoscopy History of ear surgery History of esophagogastroduodenoscopy (EGD) History of myringotomy History of tonsillectomy [place] teeth removed Family History Mother Family history of diabetes mellitus Grandmother (Maternal) Family history of diabetes mellitus Other Breast cancer Myocardial infarction No family history of adverse response to anesthesia Ovarian cancer Prostate cancer Denies family history of Colorectal cancer Social History Smoking Status: Unknown if ever smoked Second Hand Exposure: No; Hx Alcohol Use: No Hx Substance Use: No Preferred Language: Japanese Communication Ability: Effective Flat Locker Required: No Beliefs That Will Affect Care: None Current Living Situation: Parent Current Living Situation Comment: LIVES WITH PARENTS Feels Safe at Home: Yes Dental Care, Regularly: Yes Physical Activity Frequency: 5-6 Times per Week Assistive Devices: None Allergies Allergies Allergy/AdvReac Type Severity Reaction Status Date / Time Lady Bugs Allergy Intermediate Swelling Uncoded 09/09/21 14:23 and hives Home Meds Home Medications Medication Instructions Recorded Confirmed fluticasone propionate 50 2 spray INTRANASAL DAILY PRN 04/26/21 09/09/21 mcg/actuation nasal spray,suspension Medical Marijuana 1 dose INHALATION UD PRN 06/12/21 09/09/21 blood sugar diagnostic (OneTouch ea 08/01/21 09/09/21 Verio test strips) lancets 33 gauge (OneTouch Delica ea 08/01/21 09/09/21 Lancets) pen needle, diabetic 31 gauge x 08/01/21 09/09/21 5/16" (BD Ultra-Fine Short Pen Needle) Previous Rx's Medication Instructions Recorded cetirizine 10 mg tablet 10 mg PO QAM 30 Days #30 tab 04/30/21 pantoprazole 40 mg tablet,delayed 40 mg PO BID 30 Days #60 tab 04/30/21 release blood-glucose meter,continuous #1 ea 05/23/21 (Dexcom G6 Plate Mounter) magnesium 250 mg tablet 250 mg PO DAILY #30 tab 07/17/21 insulin glargine 100 unit/mL (3 20 unit SUBCUT QAM #15 ml 07/18/21 mL) subcutaneous pen (Lantus Solostar U-100 Insulin) glucagon 3 mg/actuation nasal 3 mg INTRANASAL ONCE PRN #2 ea 08/01/21 spray (Baqsimi) insulin regular human 100 unit/mL 2 unit SUBCUT TID #1 box MDD 16 08/15/21 (3 mL) subcutaneous pen pen needle, diabetic 31 gauge x #400 ea 08/15/2102/24" (BD Ultra-Fine Short Pen Needle) erythromycin 250 mg tablet 250 mg PO TIDM #90 tab 08/16/21 blood-glucose sensor (Dexcom G6 See Rx Instructions .ROUTE 08/26/21 Sensor) .COMPLEX #3 ea blood-glucose transmitter (Dexcom #1 ea 08/26/21 G6 Transmitter) acetone (urine) test (Ketostix) #50 ea 09/25/21 levonorgestrel-ethinyl estradiol 1 tab PO QAM #84 tab 10/15/21 0.1 mg-20 mcg tablet (Lutera (28)) ondansetron 4 mg disintegrating 4 mg PO TID PRN #90 tab 10/15/21 tablet escitalopram oxalate 20 mg tablet 20 mg PO DAILY #30 tab 10/18/21 (Lexapro) linaclotide 145 mcg capsule 145 mcg PO DAILY #30 cap 10/21/21 (Linzess) Results & Data (ED) Vital Signs Vital Signs - 24 hr 12/04/21 23:20 12/04/21 23:37 Pulse Rate 120 H Pulse Rate [Right Finger] 122 H Respiratory Rate 36 H 39 H Blood Pressure [Right Arm] 128/65 Blood Pressure Mean [Right Arm] 86 Pulse Oximetry 100 100 Oxygen Delivery Method Mechanical Vent Fraction of Inspired Oxygen 40 End-Tidal CO2 30 Laboratory Data Result diagrams: 12/04/21 23:26 12/04/21 23:26 Lab Results 12/04/21 12/04/21 12/04/21 Range/Units 23:23 23:26 23:29 WBC 22.28 H (4.8-10.8) K/uL RBC 4.92 (4.2-5.4) M/uL Hgb 14.1 (12.0-16.0) g/dL POC Hgb 15.0 (12.0-16.0) g/dl Hct 42.2 (37-47) % POC Hct 44 (37-47) % MCV 85.8 (80-100) fL MCH 28.7 (25-34) pg MCHC 33.4 (32-36) g/dL RDW Std Deviation 42.1 (36.4-46.3) fL RDW Coeff of Mil 13.6 (11.5-14.5) % Plt Count 285 (130-400) K/uL MPV 12.5 H (7.4-10.4) fL POC Sodium 137 (135-144) mmol/L POC Potassium 4.7 (3.3-5.0) mmol/L POC Chloride 101 (101-112) mmol/L POC Total CO2 19 L (24-31) mmol/L POC Anion Gap 22.0 (16-25) mmol/L POC BUN 17 (7-18) mg/dl POC Creatinine 0.7 (0.6-1.3) mg/dl POC Glucose 193 H (70-99) mg/dl POC Glucose (other) 220 H (70-99) mg/dl POC Ioniz Calcium Levi 1.14 (1.12-1.32) mmol/l Discharge Plan Visit Data Chief Complaint: Seizure Stated Complaint: SEIZURE ED Provider: Paula Matta Forms Stand Alone Forms: My [facility] Prescriptions Prescriptions: No Action erythromycin 250 mg tablet 250 mg PO TIDM Qty: 90 RF: 0 Dexcom G6 Sensor Device See Rx Instructions .ROUTE .COMPLEX Qty: 3 RF: 10 (DME) Dexcom G6 Transmitter Device See Rx Instructions .Route Qty: 1 RF: 3 levonorgestrel-ethinyl estrad [Lutera (28)] 0.1-20 mg-mcg tablet 1 tab PO QAM Qty: 84 RF: 0 ondansetron 4 mg tablet,disintegrating 4 mg PO TID PRN (Reason: NAUSEA/VOMITING) Qty: 90 RF: 3 escitalopram oxalate [Lexapro] 20 mg tablet 20 mg PO DAILY Qty: 30 RF: 3 Linzess 145 mcg capsule 145 mcg PO DAILY Qty: 30 RF: 2 (DME) Dexcom G6 Plate Mounter Misc See Rx Instructions .Route Qty: 1 RF: 0 insulin regular human 100 unit/mL (3 mL) insulin pen 2 unit subcut TID MDD 16 Qty: 1 RF: 3 (DME) pen needle, diabetic [BD Ultra-Fine Short Pen Needle] 31 gauge x 5/16" needle See Rx Instructions .Route Qty: 400 RF: 3 (DME) Ketostix Strip See Rx Instructions miscellaneous .MEDSUPPLY Qty: 50 RF: 5 (DME) OneTouch Verio test strips Strip See Rx Instructions .Route RF: 0 (DME) lancets [OneTouch Delica Lancets] 33 gauge misc See Rx Instructions .Route RF: 0 (DME) pen needle, diabetic [BD Ultra-Fine Short Pen Needle] 31 gauge x 5/16" needle See Rx Instructions .Route RF: 0 Baqsimi 3 mg/actuation spray,non-aerosol 3 mg intranasal ONCE PRN (Reason: hypoglycemia) Qty: 2 RF: 5 fluticasone propionate 50 mcg/actuation spray,suspension 2 spray INTRANASAL DAILY PRN (Reason: Congestion) RF: 0 cetirizine 10 mg Tablet 10 mg PO QAM 30 Days Qty: 30 RF: 3 pantoprazole 40 mg Tablet,Delayed Release (Dr/Ec) 40 mg PO BID 30 Days Qty: 60 RF: 1 Medical Marijuana 1 dose inhalation UD PRN (Reason: Anxiety) RF: 0 magnesium 250 mg tablet 250 mg PO DAILY Qty: 30 RF: 0 Lantus Solostar U-100 Insulin 100 unit/mL (3 mL) insulin pen 20 unit subcut QAM Qty: 15 RF: 3 Referrals Referrals: PCP,NO [Primary Care Provider] -
[2021-12-04 23:53] LABS: Base Excess VBG -12.3 mEq/L; Oxygen Saturation VBG 74.4 %; pH VBG 7.12 (7.36-7.41)
[2021-12-04 23:54] LABS: Appearance Urine Clear (Clear); Bacteria Urine Automated Negative (Negative); Bilirubin Urine Negative (Negative); Blood Urine 2+ (Negative); Color Urine Yellow; Epithelial Cell Urine Auto 20-30 /lpf (0-5); Glucose Urine UA Negative (Negative); Ketones Urine Trace (Negative); Leukocyte Esterase Urine 1+ (Negative); Nitrite Urine Negative (Negative); Protein Urine 1+ (Negative); Specific Gravity Urine 1.018 (1.000-1.030); Urobilinogen Urine Negative (Negative); WBC Urine Automated >30 /hpf (0-5)
--- NOTE | 2021-12-04 23:55 | Emergency Department Note ---
History of Present Illness General Chief Complaint: Seizure Stated Complaint: SEIZURE Source: family (mother), EMS, RN notes reviewed and old records reviewed Mode of arrival: EMS Limitations: altered mental status and clinical acuity (somnolent) History of Present Illness Provider Complaint: + seizure Onset (ago): less than 1 hour(s) Witnessed: + yes - by EMS Trauma: No Seizure History: + none Place: + home Possible Precipitating Event: + medication (insulin diabetic, on pump) Treatments prior to arrival: + benzodiazepines (2 mg IV ativan, 2 mg IM ativan, 10 mg IV medazolam total ) HPI Narrative: 21 yo female with no SZ history family heard a thud, ran to room and found on the floor between bed/dresser AMS, possible SZ activity. Per EMS, "decorticate posturing" and thrashing, but no foaming at mouth. Pupils sluggish, elevated HR. No h/o drug use. IDDM on insulin pump. Initial BSG 80, repeat 160. No h/o trauma per family. Home Medications Medication Instructions Recorded Confirmed Type fluticasone propionate 50 2 spray INTRANASAL DAILY PRN 04/26/21 12/09/21 History mcg/actuation nasal spray,suspension cetirizine 10 mg tablet 10 mg PO QAM 30 Days #30 tab 04/30/21 12/09/21 Rx blood-glucose meter,continuous #1 ea 05/23/21 12/09/21 Rx (Dexcom G6 Food And Beverage Order Clerk) Medical Marijuana 1 dose INHALATION UD PRN 06/12/21 12/09/21 History magnesium 250 mg tablet 250 mg PO DAILY #30 tab 07/17/21 12/09/21 Rx insulin glargine 100 unit/mL (3 20 unit SUBCUT QAM #15 ml 07/18/21 12/09/21 Rx mL) subcutaneous pen (Lantus Solostar U-100 Insulin) blood sugar diagnostic (OneTouch ea 08/01/21 12/09/21 History Verio test strips) glucagon 3 mg/actuation nasal 3 mg INTRANASAL ONCE PRN #2 ea 08/01/21 12/09/21 Rx spray (Baqsimi) lancets 33 gauge (OneTouch Delica ea 08/01/21 12/09/21 History Lancets) pen needle, diabetic 31 gauge x 08/01/21 12/09/21 History 5/16" (BD Ultra-Fine Short Pen Needle) pen needle, diabetic 31 gauge x #400 ea 08/15/21 12/09/21 Rx 5/16" (BD Ultra-Fine Short Pen Needle) blood-glucose transmitter (Dexcom #1 ea 08/26/21 12/09/21 Rx G6 Transmitter) acetone (urine) test (Ketostix) #50 ea 09/25/21 12/09/21 Rx levonorgestrel-ethinyl estradiol 1 tab PO QAM #84 tab 10/15/21 12/09/21 Rx 0.1 mg-20 mcg tablet (Lutera (28)) ondansetron 4 mg disintegrating 4 mg PO TID PRN #90 tab 10/15/21 12/09/21 Rx tablet escitalopram oxalate 20 mg tablet 20 mg PO DAILY #30 tab 10/18/21 12/09/21 Rx (Lexapro) linaclotide 145 mcg capsule 145 mcg PO DAILY #30 cap 10/21/21 12/09/21 Rx (Linzess) insulin lispro 100 unit/mL 0 unit SUBCUT DIRECTED 12/05/21 12/09/21 History subcutaneous pen (Humalog KwikPen (U-100) Insulin) levetiracetam 500 mg tablet 500 mg PO Q12H 14 Days #28 tab 12/06/21 12/09/21 Rx (Keppra) Allergies Allergy/AdvReac Type Severity Reaction Status Date / Time [place]ie Allergy Severe Swelling Uncoded 12/05/21 00:23 and hives Past Med/Surg History Medical History Anxiety and depression Diabetes mellitus type 1 Diabetes type 1, uncontrolled Diabetic retinopathy associated with type 1 diabetes mellitus Gastritis Gastroparesis Hx of diabetic retinopathy Hypoglycemia due to insulin Hypoglycemia unawareness associated with type 1 diabetes mellitus IBS (irritable bowel syndrome) Surgical History H/O eye surgery LASER SURGERY RT/LEFT History of colonoscopy History of ear surgery LEFT EAR S/P INFECTION FROM EARING History of esophagogastroduodenoscopy (EGD) History of myringotomy History of tonsillectomy [place] teeth removed Family History Mother Family history of diabetes mellitus Grandmother (Maternal) Family history of diabetes mellitus Other Breast cancer Myocardial infarction No family history of adverse response to anesthesia Ovarian cancer Prostate cancer Denies family history of Colorectal cancer Social History Smoking Status: Current every day smoker Second Hand Exposure: No; Hx Alcohol Use: Yes Alcohol type: beer, wine and hard liquor Hx Substance Use: Yes Last Used Substance Other:: ONLY RX MARIJAUNA Preferred Language: Turkmen Communication Ability: Ventilator Brand Marketing Specialist Required: No Beliefs That Will Affect Care: None marital status: Single Current Living Situation: Family Current Living Situation Comment: Lives with mother and mother's Feels Safe at Home: Yes Dental Care, Regularly: Yes Physical Activity Frequency: 5-6 Times per Week Assistive Devices: Oxygen - Continuous Review of Systems Unobtainable due to cognitive status (AMS) and Unobtainable due to reduced consciousness Physical Exam Vital Signs: Vital Signs - 24 hr 12/04/21 23:20 12/04/21 23:37 12/05/21 00:01 Temperature 36 C L Temperature Source Oral Pulse Rate 120 H 126 H Pulse Rate [Right Finger] 122 H Respiratory Rate 36 H 39 H 28 H Respiratory Effort / Characteristics Non-Labored Respiratory Depth Normal Blood Pressure 114/58 L Blood Pressure [Ri ght Arm] 128/65 Blood Pressure Candy n 76 Blood Pressure Candy n [Right Arm] 86 Pulse Oximetry 100 100 100 Oxygen Delivery Me thod Mechanical Vent Fraction of Inspir ed Oxygen 40 Sepsis Recent Feve r Within 48 Hours No Sepsis New/Unexpla ined Change in Men noam Status N/A Sepsis Action Take n by Nursing Physician Notified End-Tidal CO2 30 Physical Exam: Vital signs reviewed. General: Critically ill-appearing 21-year-old female, somnolent with nonrebreather in place HEENT: No conjunctival injection, PERRLA, sluggish pupils neck supple. Atrau matic. Emesis noted in the airway Cardiovascular: Tachycardic but regular, no extra sounds Pulmonary: Clear to auscultation bilaterally, normal work of breathing. Abdomen: Soft, obese, nontender, nondistended, positive bowel sounds. Musculoskeletal: Atraumatic, no peripheral edema. Neurologic: Somnolent, unable to arouse fully, minimal responds to pain. Skin: Warm, dry, no rash Procedures Intubation Time out performed: Yes sedative: Etomidate Mg Given: 20 paralytic: Succinylcholine Mg Given: 100 Laryngoscope: fiber optic video scope ET Tube Size: 7.5 Tube Secured Depth (cm): 25 Tube Secured Location: teeth Tube Placement Confirmation: visualized tube passing through cords, equal breath sounds bilaterally and confirmation by capnometry Patient Tolerated Procedure: no complications Intubation Complications: none Course Administered Medications Discontinued Medications Cetirizine HCl (Cetirizine Hcl 10 Mg Tablet) 10 mg PO QAM [facility] Stop: 01/04/22 08:59 Last Admin: 12/06/21 08:33 Dose: 10 mg Documented by: [id number] Admin: 12/05/21 09:47 Dose: 10 mg Documented by: [id number] Enoxaparin Sodium (Enoxaparin Inj 40 Mg/0.4 Ml Syr) 40 mg SQ DAILY [facility] Stop: 01/04/22 10:29 Last Admin: 12/06/21 08:33 Dose: 40 mg Documented by: [id number] Admin: 12/05/21 11:23 Dose: 40 mg Documented by: [id number] Escitalopram Oxalate (Escitalopram Oxalate 20 Mg Tab) 20 mg PO DAILY [facility] Stop: 01/04/22 08:59 Last Admin: 12/06/21 08:32 Dose: 20 mg Documented by: [id number] Admin: 12/05/21 09:47 Dose: 20 mg Documented by: [id number] Gadobutrol (Gadobutrol 65ml Vial) 7.5 ml IV ONCE ONE Stop: 12/06/21 12:24 Last Admin: 12/06/21 12:23 Dose: 7.5 ml Documented by: [id number] Sodium Chloride (Nss 1000ml) 1,000 mls @ 125 mls/hr IV .Q8H [facility] Stop: 12/05/21 07:29 Last Infusion: 12/05/21 03:36 Dose: 0 mls/hr Documented by: [id number] Admin: 12/04/21 23:53 Dose: 125 mls/hr Documented by: [id number] Propofol (Diprivan) 1,000 mg in 100 mls @ 23.736 mls/hr IV .Q4H13M [facility]; Protocol Stop: 12/07/21 23:29 Last Admin: 02/24/22 15:12 Dose: Not Given Documented by: [id number] Titration: 12/05/21 10:10 Dose: 0 mcg/kg/min, 0 mls/hr Documented by: [id number] Titration: 12/05/21 10:01 Dose: 0 mcg/kg/min, 0 mls/hr Documented by: [id number] Titration: 12/05/21 10:00 Dose: 39.94 mcg/kg/min, 23.7 mls/hr Documented by: [id number] Admin: 12/05/21 08:55 Dose: 40 mcg/kg/min, 23.7 mls/hr Documented by: [id number] Cosigned by: [id number] Titration: 12/05/21 07:09 Dose: 40 mcg/kg/min, 23.7 mls/hr Documented by: [id number] Cosigned by: [id number] Titration: 12/05/21 07:01 Dose: 40 mcg/kg/min, 23.7 mls/hr Documented by: [id number] Cosigned by: [id number] Admin: 12/05/21 02:55 Dose: 40 mcg/kg/min, 23.7 mls/hr Documented by: [id number] Cosigned by: [id number] Titration: 12/05/21 02:55 Dose: 40 mcg/kg/min, 23.7 mls/hr Documented by: [id number] Cosigned by: [id number] Titration: 12/05/21 01:20 Dose: 40 mcg/kg/min, 23.7 mls/hr Documented by: [id number] Titration: 12/05/21 00:23 Dose: 35 mcg/kg/min, 20.8 mls/hr Documented by: [id number] Titration: 12/05/21 00:15 Dose: 30 mcg/kg/min, 17.8 mls/hr Documented by: [id number] Titration: 12/05/21 00:05 Dose: 25 mcg/kg/min, 14.8 mls/hr Documented by: [id number] Admin: 12/04/21 23:24 Dose: 20 mcg/kg/min, 11.9 mls/hr Documented by: [id number] Cosigned by: [id number] Levetiracetam 1,000 mg/ Sodium (Chloride) 100 mls @ 440 mls/hr IV NOW STA Stop: 12/04/21 23:34 Last Infusion: 12/04/21 23:54 Dose: 0 mls/hr Documented by: [id number] Admin: 12/04/21 23:53 Dose: 440 mls/hr Documented by: [id number] Multivitamins 10 ml/ Thiamine HCl 100 mg/ Folic Acid 1 mg/Sodium Chloride 1,011.2 mls @ 1,011.2 mls/hr IV .Q1H ONE Stop: 12/05/21 01:26 Last Infusion: 12/05/21 03:36 Dose: 0 mls/hr Documented by: [id number] Admin: 12/05/21 00:58 Dose: 1,011.2 mls/hr Documented by: [id number] Piperacillin Sod/Tazobactam Sod (Zosyn) 4.5 gm in 120 mls @ 230 mls/hr IV NOW STA Stop: 12/05/21 02:02 Last Infusion: 12/05/21 04:05 Dose: 0 mls/hr Documented by: [id number] Admin: 12/05/21 03:32 Dose: 230 mls/hr Documented by: [id number] Propofol (Diprivan) 1,000 mg in 100 mls @ 11.868 mls/hr IV .Q8H26M [facility]; Protocol Stop: 12/08/21 01:31 Last Admin: 12/06/21 09:57 Dose: Not Given Documented by: [id number] Piperacillin Sod/Tazobactam (Sod 4.5 gm/ Dextrose) 120 mls @ 30 mls/hr IV Q8H [facility]; Protocol Stop: 12/07/21 05:59 Last Infusion: 12/05/21 10:56 Dose: 0 mls/hr Documented by: [id number] Admin: 12/05/21 05:17 Dose: 30 mls/hr Documented by: [id number] Fentanyl Citrate (Fentanyl Citrate) 2,500 mcg in 250 mls @ 2.5 mls/hr IV .Q96H [facility]; Protocol Stop: 12/19/21 01:59 Last Titration: 12/05/21 14:19 Dose: 0 mcg/hr, 0 mls/hr Documented by: [id number] Cosigned by: [id number] Titration: 12/05/21 10:00 Dose: 0 mcg/hr, 0 mls/hr Documented by: [id number] Cosigned by: [id number] Titration: 12/05/21 07:01 Dose: 25 mcg/hr, 2.5 mls/hr Documented by: [id number] Cosigned by: [id number] Admin: 12/05/21 02:10 Dose: 25 mcg/hr, 2.5 mls/hr Documented by: [id number] Cosigned by: [id number] Levetiracetam 500 mg/ Sodium (Chloride) 105 mls @ 420 mls/hr IV Q12H [facility] Stop: 01/04/22 01:59 Last Infusion: 12/06/21 02:00 Dose: 0 mls/hr Documented by: [id number] Admin: 12/06/21 01:38 Dose: 420 mls/hr Documented by: [id number] Infusion: 12/05/21 14:48 Dose: 0 mls/hr Documented by: [id number] Admin: 12/05/21 14:09 Dose: 420 mls/hr Documented by: [id number] Infusion: 12/05/21 03:00 Dose: 0 mls/hr Documented by: [id number] Admin: 12/05/21 02:40 Dose: 420 mls/hr Documented by: [id number] Parenteral Electrolytes (Plasma-Lyte A) 1,000 mls @ 80 mls/hr IV .Q01V89L [facility] Stop: 01/04/22 03:29 Last Infusion: 12/06/21 09:56 Dose: 0 mls/hr Documented by: [id number] Admin: 12/06/21 05:44 Dose: Not Given Documented by: [id number] Admin: 12/05/21 20:00 Dose: 80 mls/hr Documented by: [id number] Infusion: 12/05/21 20:00 Dose: 80 mls/hr Documented by: [id number] Admin: 12/05/21 03:32 Dose: 80 mls/hr Documented by: [id number] Magnesium Sulfate/Dextrose (Magnesium Sulfate / D5w) 1 gm in 100 mls @ 50 mls /hr IV ONE ONE Stop: 12/05/21 08:59 Last Infusion: 12/05/21 10:54 Dose: 0 mls/hr Documented by: [id number] Admin: 12/05/21 07:40 Dose: 50 mls/hr Documented by: [id number] Piperacillin Sod/Tazobactam (Sod 3.375 gm/ Dextrose) 115 mls @ 28.75 mls/hr IV Q8H [facility]; Protocol Stop: 12/07/21 05:59 Last Infusion: 12/06/21 08:24 Dose: 0 mls/hr Documented by: [id number] Admin: 12/06/21 04:24 Dose: 28.8 mls/hr Documented by: [id number] Infusion: 12/06/21 01:13 Dose: 0 mls/hr Documented by: [id number] Admin: 12/05/21 20:58 Dose: 28.8 mls/hr Documented by: [id number] Infusion: 12/05/21 16:17 Dose: 0 mls/hr Documented by: [id number] Admin: 12/05/21 12:17 Dose: 28.8 mls/hr Documented by: [id number] Insulin Aspart (Insulin Aspart Per Unit) Confirm Administered Dose 3 units .ROUTE .STK-MED [facility] Stop: 12/05/21 09:35 Last Admin: 12/05/21 09:48 Dose: Not Given Documented by: [id number] Insulin Aspart (Insulin Aspart Per Unit) Confirm Administered Dose 3 units .ROUTE .STK-MED ONE Stop: 12/05/21 12:17 Last Admin: 12/05/21 12:30 Dose: 3 units Documented by: [id number] Cosigned by: [id number] Insulin Glargine (Insulin Glargine Solostar 100 Units/Ml 3 Ml Pen) 10 units SC BID [facility] Stop: 01/04/22 08:59 Last Admin: 12/05/21 09:46 Dose: 10 units Documented by: [id number] Cosigned by: [id number] Insulin Glargine (Insulin Glargine Solostar 100 Units/Ml 3 Ml Pen) 10 units SC QAM [facility] Stop: 01/04/22 08:59 Last Admin: 12/06/21 08:33 Dose: 10 units Documented by: [id number] Cosigned by: [id number] Insulin Human Regular (Insulin Human Regular) 0 units SC Q6 [facility] Stop: 01/04/22 08:14 Last Admin: 12/06/21 12:49 Dose: Not Given Documented by: [id number] Admin: 12/06/21 05:42 Dose: Not Given Documented by: [id number] Admin: 12/06/21 00:44 Dose: Not Given Documented by: [id number] Admin: 12/05/21 18:22 Dose: 2 units Documented by: [id number] Cosigned by: [id number] Admin: 12/05/21 12:18 Dose: 3 units Documented by: [id number] Cosigned by: [id number] Admin: 12/05/21 09:44 Dose: 3 units Documented by: [id number] Cosigned by: [id number] Insulin Human Regular (Insulin Human Regular) 0 units SC ACHS [facility] Stop: 01/04/22 08:14 Last Admin: 12/06/21 16:57 Dose: Not Given Documented by: [id number] Lansoprazole (Lansoprazole 30 Mg Soltab) 30 mg PO QAM [facility] Stop: 01/04/22 08:59 Last Admin: 12/06/21 08:33 Dose: 30 mg Documented by: [id number] Admin: 12/05/21 09:47 Dose: 30 mg Documented by: [id number] Levetiracetam (Levetiracetam 500 Mg Tab) 500 mg PO Q12H [facility] Stop: 01/05/22 14:59 Last Admin: 12/06/21 15:17 Dose: 500 mg Documented by: [id number] Lorazepam (Lorazepam 2 Mg/1 Ml Vial) 2 mg IV NOW STA Stop: 12/05/21 00:28 Last Admin: 12/05/21 00:33 Dose: 2 mg Documented by: [id number] Mirtazapine (Mirtazapine Tab 15 Mg Tab) 7.5 mg PO HS [facility] Stop: 01/04/22 20:59 Last Admin: 12/05/21 20:55 Dose: Not Given Documented by: [id number] Miscellaneous (Stat Iv Infusion Titration Per Protocol) 1 ea N/A NOW STA Stop: 12/04/21 23:24 Last Admin: 12/05/21 00:54 Dose: Not Given Documented by: [id number] Miscellaneous (Stat Iv Infusion Titration Per Protocol) 1 ea N/A NOW STA Stop: 12/05/21 00:50 Last Admin: 12/05/21 00:54 Dose: Not Given Documented by: [id number] Miscellaneous (Order Awaiting Action: Levonorgestrel-Ethinyl Estrad [Lutera (28)] 0.1-20 Mg-Mcg Tablet) 1 ea NA QS [facility] Stop: 01/04/22 07:59 Last Admin: 12/06/21 15:17 Dose: Not Given Documented by: [id number] Admin: 12/06/21 08:33 Dose: Not Given Documented by: [id number] Admin: 12/06/21 00:44 Dose: Not Given Documented by: [id number] Admin: 12/05/21 17:52 Dose: Not Given Documented by: [id number] Admin: 12/05/21 15:11 Dose: Not Given Documented by: [id number] Propofol (Propofol Iv Emulsion 10 Mg/Ml 100 Ml Vial) Confirm Administered Dose 1,000 mg IV .STK-MED ONE Stop: 12/04/21 23:23 Last Admin: 12/05/21 00:54 Dose: Not Given Documented by: [id number] Propofol (Propofol Bolus From Bag) 20 mg IV Q5M PRN PRN Reason: Sedation Stop: 12/07/21 23:22 Last Admin: 12/05/21 00:35 Dose: 20 mg Documented by: [id number] Cosigned by: [id number] Medical Decision Making Differential Diagnosis Epilepsy, infection, hypoglycemia, electrolyte abnormalities, cardiac sources, intracerebral event, trauma, toxicologic, neurologic, syncope, as well as other pathologies. Medical Records Attestation: I reviewed the patient's medical records. Home Medications Current Medication List: was personally reviewed by me Laboratory Data Attestation: I reviewed the patient's lab results. Result diagrams: 12/06/21 04:37 12/06/21 04:37 Lab Results 12/04/21 12/04/21 12/04/21 Range/Units 23:23 23:26 23:26 WBC 22.28 H (4.8-10.8) K/uL RBC 4.92 (4.2-5.4) M/uL Hgb 14.1 (12.0-16.0) g/dL POC Hgb (12.0-16.0) g/dl Hct 42.2 (37-47) % POC Hct (37-47) % MCV 85.8 (80-100) fL MCH 28.7 (25-34) pg MCHC 33.4 (32-36) g/dL RDW Std Deviation 42.1 (36.4-46.3) fL RDW Coeff of Mil 13.6 (11.5-14.5) % Plt Count 285 (130-400) K/uL MPV 12.5 H (7.4-10.4) fL Immature Gran % (Auto) 0.4 % Neut % (Auto) 86.1 % Lymph % (Auto) 10.1 % Maverick % (Auto) 3.3 % Eos % (Auto) 0.0 % Baso % (Auto) 0.1 % Neut # (Auto) 19.18 H (1.4-6.5) K/uL Lymph # (Auto) 2.24 (1.2-3.4) K/uL [place] # (Auto) 0.73 H (0.11-0.59) K/uL Eos # (Auto) 0.00 (0-0.5) K/uL Baso # (Auto) 0.03 (0-0.2) K/uL Immature Gran # (Auto) 0.10 H (0.00-0.02) K/uL RBC Morphology Unremarkable VBG pH (7.36-7.41) VBG pCO2 (38-50) mmHg VBG pO2 mmHg VBG HCO3 mmol/L VBG O2 Saturation % VBG Base Excess mEq/L Barometric Pressure mm/Hg POC Sodium (135-144) mmol/L Sodium 136 (136-145) mmol/L POC Potassium (3.3-5.0) mmol/L Potassium TNP POC Chloride (101-112) mmol/L Chloride 100 (98-107) mmol/L Carbon Dioxide 15 L (21-32) mmol/L POC Total CO2 (24-31) mmol/L Anion Gap 21 H (3-11) POC Anion Gap (16-25) mmol/L POC BUN (7-18) mg/dl BUN 15 (6-23) mg/dl Creatinine 0.76 (0.6-1.2) mg/dl POC Creatinine (0.6-1.3) mg/dl Est Cr Clr Drug Dosing 140.2 ml/min Est GFR ( Amer) 129.1 ml/min Est GFR (Non-Af Amer) 111.3 ml/min BUN/Creatinine Ratio 19.7 (10-20) Glucose 213 H (70-99(Fasting)) mg/dl POC Glucose 193 H (70-99) mg/dl POC Glucose (other) (70-99) mg/dl Osmolality (280-300) mOsm/kg Lactate (0.4-2.0) mmol/L Calcium 8.7 (8.5-10.1) mg/dl POC Ioniz Calcium Levi (1.12-1.32) mmol/l Phosphorus 4.6 (2.5-4.9) mg/dl Magnesium 2.1 (1.7-2.4) mg/dl Total Bilirubin 0.3 (0.2-1.0) mg/dl AST TNP ALT 21 (7-52) U/L Alkaline Phosphatase 70 (34-104) U/L Total Creatine Kinase 330 H (26-192) U/L Total Protein 7.3 (6.0-8.3) gm/dl Albumin 4.1 (3.4-5.0) gm/dl Globulin 3.2 (2.5-4.0) gm/dl Albumin/Globulin Ratio 1.3 (0.9-2) Procalcitonin (0-0.5) ng/ml Urine Color Urine Appearance (Clear) Urine pH (4.5-7.5) Ur Specific [place] (1.000-1.030) Urine Protein (Negative) Urine Glucose (UA) (Negative) Urine Ketones (Negative) Urine Blood (Negative) Urine Nitrite (Negative) Urine Bilirubin (Negative) Urine Urobilinogen (Negative) Ur Leukocyte Esterase (Negative) Urine WBC (Auto) (0-5) /hpf Urine RBC (Auto) (0-4) /hpf U Hyaline Cast (Auto) (0-5) /lpf U Epithel Cells (Auto) (0-5) /lpf Urine Bacteria (Auto) (Negative) Urine Yeast (None Prsent) Urine Osmolality (500-800) mOsm/kg Urine Opiates Screen (Neg) Ur Methadone, Qual (Neg) Urine Barbiturates (Neg) Ur Phencyclidine (PCP) (Neg) U Amphetamin/Meth Scrn (Neg) MDMA (Ecstasy) Screen (Neg) U OH-Alprazolam Confrm (<25) ng/mL U Benzodiazepines Scrn (Neg) 7-Amino Clonazepam (<25) ng/mL Ur Nordiazepam Confirm (<50) ng/mL U OH-ethylflurazepam (<50) ng/mL U Lorazepam Cnf GC/MS (<50) ng/mL U Oxazepam Confm GC/MS (<50) ng/mL Ur Temazepam Confirm (<50) ng/mL U OH-Triazolam Confirm (<50) ng/mL U OH-Midazolam Confirm (<50) ng/mL Ur Cocaine Metabolite (Neg) U Marijuana (THC) Screen (Neg) U Marijuana THC Carboxy (<5) ng/mL Drug Screen Comment Ethyl Alcohol mg/dL (<10.0) mg/dl Adenovirus (PCR) (NotDetected) B. pertussis DNA (PCR) (NotDetected) B.parapertussis DNA PCR (NotDetected) C. pneumoniae DNA (PCR) (NotDetected) Coronavirus OC43 (PCR) (NotDetected) Coronavirus HKU1 (PCR) (NotDetected) Coronavirus 229E (PCR) (NotDetected) SARS-CoV-2 (PCR) (NotDetected) Coronavirus NL63 (PCR) (NotDetected) Human Metapneumovir PCR (NotDetected) Influenza Type A (PCR) (NotDetected) Influenza Type B (PCR) (NotDetected) M. pneumoniae (PCR) (NotDetected) Parainfluenza 1 (PCR) (NotDetected) Parainfluenza 2 (PCR) (NotDetected) Parainfluenza 3 (PCR) (NotDetected) Parainfluenza 4 (PCR) (NotDetected) RSV (PCR) (NotDetected) Entero/Rhino (PCR) (NotDetected) 12/04/21 12/04/21 12/04/21 Range/Units 23:26 23:26 23:26 WBC (4.8-10.8) K/uL RBC (4.2-5.4) M/uL Hgb (12.0-16.0) g/dL POC Hgb (12.0-16.0) g/dl Hct (37-47) % POC Hct (37-47) % MCV (80-100) fL MCH (25-34) pg MCHC (32-36) g/dL RDW Std Deviation (36.4-46.3) fL RDW Coeff of Mil (11.5-14.5) % Plt Count (130-400) K/uL MPV (7.4-10.4) fL Immature Gran % (Auto) % Neut % (Auto) % Lymph % (Auto) % Maverick % (Auto) % Eos % (Auto) % Baso % (Auto) % Neut # (Auto) (1.4-6.5) K/uL Lymph # (Auto) (1.2-3.4) K/uL [place] # (Auto) (0.11-0.59) K/uL Eos # (Auto) (0-0.5) K/uL Baso # (Auto) (0-0.2) K/uL Immature Gran # (Auto) (0.00-0.02) K/uL RBC Morphology VBG pH 7.12 L (7.36-7.41) VBG pCO2 55 H (38-50) mmHg VBG pO2 52 mmHg VBG HCO3 17 mmol/L VBG O2 Saturation 74.4 % VBG Base Excess -12.3 mEq/L Barometric Pressure 740.6 mm/Hg POC Sodium (135-144) mmol/L Sodium (136-145) mmol/L POC Potassium (3.3-5.0) mmol/L Potassium POC Chloride (101-112) mmol/L Chloride (98-107) mmol/L Carbon Dioxide (21-32) mmol/L POC Total CO2 (24-31) mmol/L Anion Gap (3-11) POC Anion Gap (16-25) mmol/L POC BUN (7-18) mg/dl BUN (6-23) mg/dl Creatinine (0.6-1.2) mg/dl POC Creatinine (0.6-1.3) mg/dl Est Cr Clr Drug Dosing ml/min Est GFR ( Amer) ml/min Est GFR (Non-Af Amer) ml/min BUN/Creatinine Ratio (10-20) Glucose (70-99(Fasting)) mg/dl POC Glucose (70-99) mg/dl POC Glucose (other) (70-99) mg/dl Osmolality (280-300) mOsm/kg Lactate 12.2 H* (0.4-2.0) mmol/L Calcium (8.5-10.1) mg/dl POC Ioniz Calcium Levi (1.12-1.32) mmol/l Phosphorus (2.5-4.9) mg/dl Magnesium (1.7-2.4) mg/dl Total Bilirubin (0.2-1.0) mg/dl AST ALT (7-52) U/L Alkaline Phosphatase (34-104) U/L Total Creatine Kinase (26-192) U/L Total Protein (6.0-8.3) gm/dl Albumin (3.4-5.0) gm/dl Globulin (2.5-4.0) gm/dl Albumin/Globulin Ratio (0.9-2) Procalcitonin (0-0.5) ng/ml Urine Color Urine Appearance (Clear) Urine pH (4.5-7.5) Ur Specific [place] (1.000-1.030) Urine Protein (Negative) Urine Glucose (UA) (Negative) Urine Ketones (Negative) Urine Blood (Negative) Urine Nitrite (Negative) Urine Bilirubin (Negative) Urine Urobilinogen (Negative) Ur Leukocyte Esterase (Negative) Urine WBC (Auto) (0-5) /hpf Urine RBC (Auto) (0-4) /hpf U Hyaline Cast (Auto) (0-5) /lpf U Epithel Cells (Auto) (0-5) /lpf Urine Bacteria (Auto) (Negative) Urine Yeast (None Prsent) Urine Osmolality (500-800) mOsm/kg Urine Opiates Screen (Neg) Ur Methadone, Qual (Neg) Urine Barbiturates (Neg) Ur Phencyclidine (PCP) (Neg) U Amphetamin/Meth Scrn (Neg) MDMA (Ecstasy) Screen (Neg) U OH-Alprazolam Confrm (<25) ng/mL U Benzodiazepines Scrn (Neg) 7-Amino Clonazepam (<25) ng/mL Ur Nordiazepam Confirm (<50) ng/mL U OH-ethylflurazepam (<50) ng/mL U Lorazepam Cnf GC/MS (<50) ng/mL U Oxazepam Confm GC/MS (<50) ng/mL Ur Temazepam Confirm (<50) ng/mL U OH-Triazolam Confirm (<50) ng/mL U OH-Midazolam Confirm (<50) ng/mL Ur Cocaine Metabolite (Neg) U Marijuana (THC) Screen (Neg) U Marijuana THC Carboxy (<5) ng/mL Drug Screen Comment Ethyl Alcohol mg/dL 10.7 H (<10.0) mg/dl Adenovirus (PCR) (NotDetected) B. pertussis DNA (PCR) (NotDetected) B.parapertussis DNA PCR (NotDetected) C. pneumoniae DNA (PCR) (NotDetected) Coronavirus OC43 (PCR) (NotDetected) Coronavirus HKU1 (PCR) (NotDetected) Coronavirus 229E (PCR) (NotDetected) SARS-CoV-2 (PCR) (NotDetected) Coronavirus NL63 (PCR) (NotDetected) Human Metapneumovir PCR (NotDetected) Influenza Type A (PCR) (NotDetected) Influenza Type B (PCR) (NotDetected) M. pneumoniae (PCR) (NotDetected) Parainfluenza 1 (PCR) (NotDetected) Parainfluenza 2 (PCR) (NotDetected) Parainfluenza 3 (PCR) (NotDetected) Parainfluenza 4 (PCR) (NotDetected) RSV (PCR) (NotDetected) Entero/Rhino (PCR) (NotDetected) 12/04/21 12/04/21 12/04/21 Range/Units 23:26 23:28 23:29 WBC (4.8-10.8) K/uL RBC (4.2-5.4) M/uL Hgb (12.0-16.0) g/dL POC Hgb 15.0 (12.0-16.0) g/dl Hct (37-47) % POC Hct 44 (37-47) % MCV (80-100) fL MCH (25-34) pg MCHC (32-36) g/dL RDW Std Deviation (36.4-46.3) fL RDW Coeff of Mil (11.5-14.5) % Plt Count (130-400) K/uL MPV (7.4-10.4) fL Immature Gran % (Auto) % Neut % (Auto) % Lymph % (Auto) % [place] % (Auto) % Eos % (Auto) % Baso % (Auto) % Neut # (Auto) (1.4-6.5) K/uL Lymph # (Auto) (1.2-3.4) K/uL [place] # (Auto) (0.11-0.59) K/uL Eos # (Auto) (0-0.5) K/uL Baso # (Auto) (0-0.2) K/uL Immature Gran # (Auto) (0.00-0.02) K/uL RBC Morphology VBG pH (7.36-7.41) VBG pCO2 (38-50) mmHg VBG pO2 mmHg VBG HCO3 mmol/L VBG O2 Saturation % VBG Base Excess mEq/L Barometric Pressure mm/Hg POC Sodium 137 (135-144) mmol/L Sodium (136-145) mmol/L POC Potassium 4.7 (3.3-5.0) mmol/L Potassium POC Chloride 101 (101-112) mmol/L Chloride (98-107) mmol/L Carbon Dioxide (21-32) mmol/L POC Total CO2 19 L (24-31) mmol/L Anion Gap (3-11) POC Anion Gap 22.0 (16-25) mmol/L POC BUN 17 (7-18) mg/dl BUN (6-23) mg/dl Creatinine (0.6-1.2) mg/dl POC Creatinine 0.7 (0.6-1.3) mg/dl Est Cr Clr Drug Dosing ml/min Est GFR ( Amer) ml/min Est GFR (Non-Af Amer) ml/min BUN/Creatinine Ratio (10-20) Glucose (70-99(Fasting)) mg/dl POC Glucose (70-99) mg/dl POC Glucose (other) 220 H (70-99) mg/dl Osmolality 308 H (280-300) mOsm/kg Lactate (0.4-2.0) mmol/L Calcium (8.5-10.1) mg/dl POC Ioniz Calcium Levi 1.14 (1.12-1.32) mmol/l Phosphorus (2.5-4.9) mg/dl Magnesium (1.7-2.4) mg/dl Total Bilirubin (0.2-1.0) mg/dl AST ALT (7-52) U/L Alkaline Phosphatase (34-104) U/L Total Creatine Kinase (26-192) U/L Total Protein (6.0-8.3) gm/dl Albumin (3.4-5.0) gm/dl Globulin (2.5-4.0) gm/dl Albumin/Globulin Ratio (0.9-2) Procalcitonin 0.05 (0-0.5) ng/ml Urine Color Urine Appearance (Clear) Urine pH (4.5-7.5) Ur Specific [place] (1.000-1.030) Urine Protein (Negative) Urine Glucose (UA) (Negative) Urine Ketones (Negative) Urine Blood (Negative) Urine Nitrite (Negative) Urine Bilirubin (Negative) Urine Urobilinogen (Negative) Ur Leukocyte Esterase (Negative) Urine WBC (Auto) (0-5) /hpf Urine RBC (Auto) (0-4) /hpf U Hyaline Cast (Auto) (0-5) /lpf U Epithel Cells (Auto) (0-5) /lpf Urine Bacteria (Auto) (Negative) Urine Yeast (None Prsent) Urine Osmolality (500-800) mOsm/kg Urine Opiates Screen (Neg) Ur Methadone, Qual (Neg) Urine Barbiturates (Neg) Ur Phencyclidine (PCP) (Neg) U Amphetamin/Meth Scrn (Neg) MDMA (Ecstasy) Screen (Neg) U OH-Alprazolam Confrm (<25) ng/mL U Benzodiazepines Scrn (Neg) 7-Amino Clonazepam (<25) ng/mL Ur Nordiazepam Confirm (<50) ng/mL U OH-ethylflurazepam (<50) ng/mL U Lorazepam Cnf GC/MS (<50) ng/mL U Oxazepam Confm GC/MS (<50) ng/mL Ur Temazepam Confirm (<50) ng/mL U OH-Triazolam Confirm (<50) ng/mL U OH-Midazolam Confirm (<50) ng/mL Ur Cocaine Metabolite (Neg) U Marijuana (THC) Screen (Neg) U Marijuana THC Carboxy (<5) ng/mL Drug Screen Comment Ethyl Alcohol mg/dL (<10.0) mg/dl Adenovirus (PCR) (NotDetected) B. pertussis DNA (PCR) (NotDetected) B.parapertussis DNA PCR (NotDetected) C. pneumoniae DNA (PCR) (NotDetected) Coronavirus OC43 (PCR) (NotDetected) Coronavirus HKU1 (PCR) (NotDetected) Coronavirus 229E (PCR) (NotDetected) SARS-CoV-2 (PCR) (NotDetected) Coronavirus NL63 (PCR) (NotDetected) Human Metapneumovir PCR (NotDetected) Influenza Type A (PCR) (NotDetected) Influenza Type B (PCR) (NotDetected) M. pneumoniae (PCR) (NotDetected) Parainfluenza 1 (PCR) (NotDetected) Parainfluenza 2 (PCR) (NotDetected) Parainfluenza 3 (PCR) (NotDetected) Parainfluenza 4 (PCR) (NotDetected) RSV (PCR) (NotDetected) Entero/Rhino (PCR) (NotDetected) 12/04/21 12/04/21 12/04/21 Range/Units 23:33 23:33 23:33 WBC (4.8-10.8) K/uL RBC (4.2-5.4) M/uL Hgb (12.0-16.0) g/dL POC Hgb (12.0-16.0) g/dl Hct (37-47) % POC Hct (37-47) % MCV (80-100) fL MCH (25-34) pg MCHC (32-36) g/dL RDW Std Deviation (36.4-46.3) fL RDW Coeff of Mil (11.5-14.5) % Plt Count (130-400) K/uL MPV (7.4-10.4) fL Immature Gran % (Auto) % Neut % (Auto) % Lymph % (Auto) % [place] % (Auto) % Eos % (Auto) % Baso % (Auto) % Neut # (Auto) (1.4-6.5) K/uL Lymph # (Auto) (1.2-3.4) K/uL [place] # (Auto) (0.11-0.59) K/uL Eos # (Auto) (0-0.5) K/uL Baso # (Auto) (0-0.2) K/uL Immature Gran # (Auto) (0.00-0.02) K/uL RBC Morphology VBG pH (7.36-7.41) VBG pCO2 (38-50) mmHg VBG pO2 mmHg VBG HCO3 mmol/L VBG O2 Saturation % VBG Base Excess mEq/L Barometric Pressure mm/Hg POC Sodium (135-144) mmol/L Sodium (136-145) mmol/L POC Potassium (3.3-5.0) mmol/L Potassium POC Chloride (101-112) mmol/L Chloride (98-107) mmol/L Carbon Dioxide (21-32) mmol/L POC Total CO2 (24-31) mmol/L Anion Gap (3-11) POC Anion Gap (16-25) mmol/L POC BUN (7-18) mg/dl BUN (6-23) mg/dl Creatinine (0.6-1.2) mg/dl POC Creatinine (0.6-1.3) mg/dl Est Cr Clr Drug Dosing ml/min Est GFR ( Amer) ml/min Est GFR (Non-Af Amer) ml/min BUN/Creatinine Ratio (10-20) Glucose (70-99(Fasting)) mg/dl POC Glucose (70-99) mg/dl POC Glucose (other) (70-99) mg/dl Osmolality (280-300) mOsm/kg Lactate (0.4-2.0) mmol/L Calcium (8.5-10.1) mg/dl POC Ioniz Calcium Levi (1.12-1.32) mmol/l Phosphorus (2.5-4.9) mg/dl Magnesium (1.7-2.4) mg/dl Total Bilirubin (0.2-1.0) mg/dl AST ALT (7-52) U/L Alkaline Phosphatase (34-104) U/L Total Creatine Kinase (26-192) U/L Total Protein (6.0-8.3) gm/dl Albumin (3.4-5.0) gm/dl Globulin (2.5-4.0) gm/dl Albumin/Globulin Ratio (0.9-2) Procalcitonin (0-0.5) ng/ml Urine Color Yellow Urine Appearance Clear (Clear) Urine pH 5.0 (4.5-7.5) Ur Specific [place] 1.018 (1.000-1.030) Urine Protein 1+ H (Negative) Urine Glucose (UA) Negative (Negative) Urine Ketones Trace H (Negative) Urine Blood 2+ H (Negative) Urine Nitrite Negative (Negative) Urine Bilirubin Negative (Negative) Urine Urobilinogen Negative (Negative) Ur Leukocyte Esterase 1+ H (Negative) Urine WBC (Auto) >30 H (0-5) /hpf Urine RBC (Auto) 0-4 (0-4) /hpf U Hyaline Cast (Auto) 1-5 (0-5) /lpf U Epithel Cells (Auto) 20-30 H (0-5) /lpf Urine Bacteria (Auto) Negative (Negative) Urine Yeast Budding A (None Prsent) Urine Osmolality (500-800) mOsm/kg Urine Opiates Screen Neg (Neg) Ur Methadone, Qual Neg (Neg) Urine Barbiturates Neg (Neg) Ur Phencyclidine (PCP) Neg (Neg) U Amphetamin/Meth Scrn Neg (Neg) MDMA (Ecstasy) Screen Neg (Neg) U OH-Alprazolam Confrm NEGATIVE (<25) ng/mL U Benzodiazepines Scrn Pos H (Neg) 7-Amino Clonazepam NEGATIVE (<25) ng/mL Ur Nordiazepam Confirm NEGATIVE (<50) ng/mL U OH-ethylflurazepam NEGATIVE (<50) ng/mL U Lorazepam Cnf GC/MS NEGATIVE (<50) ng/mL U Oxazepam Confm GC/MS NEGATIVE (<50) ng/mL Ur Temazepam Confirm NEGATIVE (<50) ng/mL U OH-Triazolam Confirm NEGATIVE (<50) ng/mL U OH-Midazolam Confirm 215 H (<50) ng/mL Ur Cocaine Metabolite Neg (Neg) U Marijuana (THC) Screen Pos H (Neg) U Marijuana THC Carboxy 168 H (<5) ng/mL Drug Screen Comment SEE NOTE Ethyl Alcohol mg/dL (<10.0) mg/dl Adenovirus (PCR) (NotDetected) B. pertussis DNA (PCR) (NotDetected) B.parapertussis DNA PCR (NotDetected) C. pneumoniae DNA (PCR) (NotDetected) Coronavirus OC43 (PCR) (NotDetected) Coronavirus HKU1 (PCR) (NotDetected) Coronavirus 229E (PCR) (NotDetected) SARS-CoV-2 (PCR) (NotDetected) Coronavirus NL63 (PCR) (NotDetected) Human Metapneumovir PCR (NotDetected) Influenza Type A (PCR) (NotDetected) Influenza Type B (PCR) (NotDetected) M. pneumoniae (PCR) (NotDetected) Parainfluenza 1 (PCR) (NotDetected) Parainfluenza 2 (PCR) (NotDetected) Parainfluenza 3 (PCR) (NotDetected) Parainfluenza 4 (PCR) (NotDetected) RSV (PCR) (NotDetected) Entero/Rhino (PCR) (NotDetected) 12/04/21 12/04/21 Range/Units 23:33 23:42 WBC (4.8-10.8) K/uL RBC (4.2-5.4) M/uL Hgb (12.0-16.0) g/dL POC Hgb (12.0-16.0) g/dl Hct (37-47) % POC Hct (37-47) % MCV (80-100) fL MCH (25-34) pg MCHC (32-36) g/dL RDW Std Deviation (36.4-46.3) fL RDW Coeff of Mil (11.5-14.5) % Plt Count (130-400) K/uL MPV (7.4-10.4) fL Immature Gran % (Auto) % Neut % (Auto) % Lymph % (Auto) % [place] % (Auto) % Eos % (Auto) % Baso % (Auto) % Neut # (Auto) (1.4-6.5) K/uL Lymph # (Auto) (1.2-3.4) K/uL [place] # (Auto) (0.11-0.59) K/uL Eos # (Auto) (0-0.5) K/uL Baso # (Auto) (0-0.2) K/uL Immature Gran # (Auto) (0.00-0.02) K/uL RBC Morphology VBG pH (7.36-7.41) VBG pCO2 (38-50) mmHg VBG pO2 mmHg VBG HCO3 mmol/L VBG O2 Saturation % VBG Base Excess mEq/L Barometric Pressure mm/Hg POC Sodium (135-144) mmol/L Sodium (136-145) mmol/L POC Potassium (3.3-5.0) mmol/L Potassium POC Chloride (101-112) mmol/L Chloride (98-107) mmol/L Carbon Dioxide (21-32) mmol/L POC Total CO2 (24-31) mmol/L Anion Gap (3-11) POC Anion Gap (16-25) mmol/L POC BUN (7-18) mg/dl BUN (6-23) mg/dl Creatinine (0.6-1.2) mg/dl POC Creatinine (0.6-1.3) mg/dl Est Cr Clr Drug Dosing ml/min Est GFR ( Amer) ml/min Est GFR (Non-Af Amer) ml/min BUN/Creatinine Ratio (10-20) Glucose (70-99(Fasting)) mg/dl POC Glucose (70-99) mg/dl POC Glucose (other) (70-99) mg/dl Osmolality (280-300) mOsm/kg Lactate (0.4-2.0) mmol/L Calcium (8.5-10.1) mg/dl POC Ioniz Calcium Levi (1.12-1.32) mmol/l Phosphorus (2.5-4.9) mg/dl Magnesium (1.7-2.4) mg/dl Total Bilirubin (0.2-1.0) mg/dl AST ALT (7-52) U/L Alkaline Phosphatase (34-104) U/L Total Creatine Kinase (26-192) U/L Total Protein (6.0-8.3) gm/dl Albumin (3.4-5.0) gm/dl Globulin (2.5-4.0) gm/dl Albumin/Globulin Ratio (0.9-2) Procalcitonin (0-0.5) ng/ml Urine Color Urine Appearance (Clear) Urine pH (4.5-7.5) Ur Specific [place] (1.000-1.030) Urine Protein (Negative) Urine Glucose (UA) (Negative) Urine Ketones (Negative) Urine Blood (Negative) Urine Nitrite (Negative) Urine Bilirubin (Negative) Urine Urobilinogen (Negative) Ur Leukocyte Esterase (Negative) Urine WBC (Auto) (0-5) /hpf Urine RBC (Auto) (0-4) /hpf U Hyaline Cast (Auto) (0-5) /lpf U Epithel Cells (Auto) (0-5) /lpf Urine Bacteria (Auto) (Negative) Urine Yeast (None Prsent) Urine Osmolality 593 (500-800) mOsm/kg Urine Opiates Screen (Neg) Ur Methadone, Qual (Neg) Urine Barbiturates (Neg) Ur Phencyclidine (PCP) (Neg) U Amphetamin/Meth Scrn (Neg) MDMA (Ecstasy) Screen (Neg) U OH-Alprazolam Confrm (<25) ng/mL U Benzodiazepines Scrn (Neg) 7-Amino Clonazepam (<25) ng/mL Ur Nordiazepam Confirm (<50) ng/mL U OH-ethylflurazepam (<50) ng/mL U Lorazepam Cnf GC/MS (<50) ng/mL U Oxazepam Confm GC/MS (<50) ng/mL Ur Temazepam Confirm (<50) ng/mL U OH-Triazolam Confirm (<50) ng/mL U OH-Midazolam Confirm (<50) ng/mL Ur Cocaine Metabolite (Neg) U Marijuana (THC) Screen (Neg) U Marijuana THC Carboxy (<5) ng/mL Drug Screen Comment Ethyl Alcohol mg/dL (<10.0) mg/dl Adenovirus (PCR) Not Detected (NotDetected) B. pertussis DNA (PCR) Not Detected (NotDetected) B.parapertussis DNA PCR Not Detected (NotDetected) C. pneumoniae DNA (PCR) Not Detected (NotDetected) Coronavirus OC43 (PCR) Not Detected (NotDetected) Coronavirus HKU1 (PCR) Not Detected (NotDetected) Coronavirus 229E (PCR) Not Detected (NotDetected) SARS-CoV-2 (PCR) Not Detected (NotDetected) Coronavirus NL63 (PCR) Not Detected (NotDetected) Human Metapneumovir PCR Not Detected (NotDetected) Influenza Type A (PCR) Not Detected (NotDetected) Influenza Type B (PCR) Not Detected (NotDetected) M. pneumoniae (PCR) Not Detected (NotDetected) Parainfluenza 1 (PCR) Not Detected (NotDetected) Parainfluenza 2 (PCR) Not Detected (NotDetected) Parainfluenza 3 (PCR) Not Detected (NotDetected) Parainfluenza 4 (PCR) Not Detected (NotDetected) RSV (PCR) Not Detected (NotDetected) Entero/Rhino (PCR) Not Detected (NotDetected) Imaging Data Radiologist's Impression: Head CT 12/04/21 23:[address] DOSE: 921.40 mGy.cm HISTORY: Unresponsive. Seizure. TECHNIQUE: Multiaxial CT images of the head were performed without the use of intravenous contrast. Automated exposure control was utilized for this study. A dose lowering technique was utilized adhering to the principles of ALARA. Comparison: Head CT 04/28/2021. Findings: The paranasal sinuses and mastoid air cells are clear. The calvarium and skull base are intact. The ventricles and sulci are within normal limits. There is no mass, hematoma, midline shift, or acute infarct. Impression: No acute intracranial abnormality. ACT 112: Negative or not required by law. Electronically signed by: Edison Marmolejo M.D. 12/05/2021 7:19 AM Chest X-Ray 12/04/21 23:31 SINGLE VIEW CHEST CLINICAL HISTORY: Endotracheal tube placement. Seizure. FINDINGS: An AP, portable, supine chest radiograph is compared to study dated 04/19/2015 and correlated with chest CT dated 04/29/2021. An endotracheal tube has been placed. The tip projects approximately 3 cm above the junaid. The cardiomediastinal silhouette is unremarkable. There are low lung volumes. The lungs and pleural spaces are clear. No pneumothorax is seen. The bony thorax is grossly intact. IMPRESSION: 1. An endotracheal tube has been placed as above. 2. The lungs are clear. ACT 112: Negative or not required by law. Electronically signed by: Chuy Hickey M.D. 12/05/2021 8:00 AM ECG Data Attestation: I personally reviewed and interpreted this ECG as follows: (Sinus tachycardia at 123 bpm. Repolarization abnormality in the inferior leads. Slightly prolonged QTC of 463. Normal axis. No PVC, no PAC.) Blood Pressure Blood Pressure Findings: Normal blood pressure Blood Pressure Disposition: did not require urgent referral MDM Narrative This patient was evaluated and appeared to be critically ill. Patient is somnolent and received heavy doses of benzodiazepines including 4 mg of Ativan and 10 mg of Versed prior to arrival. Patient also vomited and was subsequently intubated. Please see my procedure note above. CT imaging of the head was performed and is negative for acute intracranial pathology. Patient was placed on propofol for sedation and was given 1 g of IV Keppra. I did speak with m other who arrived at the bedside. 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 She does not feel that the patient abuses alcohol. Patient is an insulin-dependent diabetic although no profound hypoglycemia has been reported by EMS or nursing staff. The ED allergy the patient's seizure is unclear although alcohol withdrawal would be in the differential. The automotive drivability technician service was consulted from the emergency department as well as the hospitalist team. Patient will be evaluated for admission and further management. Mother was updated with the plan and agreed. Impression & Plan New onset seizure, Type 1 diabetes, uncontrolled, with gastroparesis, Acute alteration in mental status, Vomiting Critical Care Time Critical Care Time: Yes Total Critical Care Time: 45 I have personally spent greater than 45 minutes of critical care time in the direct management of this patient. This includes bedside care, interpretation of diagnostic studies, and testing, discussion with consultants, patient, and family members, and other required patient management activities. This 45 minutes is in excess of all separately billable procedures. Discharge Plan Visit Data Chief Complaint: Seizure Stated Complaint: SEIZURE ED Provider: Paula Matta Discharge Problem: New onset seizure, Type 1 diabetes, uncontrolled, with gastroparesis, Acute alteration in mental status, Vomiting Patient Disposition: Admitted As Inpatient Discharge Instructions Interventions: ED Discharge Assessment Last Done: 12/05/21 01:53 Discharge Problem: Vomiting Qualifiers: Vomiting type: unspecified Nausea presence: unspecified Qualified Code(s): R11.10 - Vomiting, unspecified
[2021-12-05] LABS: Basophils # (auto) 0.03 K/uL (0-0.2); Basophils % (auto) 0.1 %; Immature Granulocytes % (auto) 0.4 %; Lymphocytes # (auto) 2.24 K/uL (1.2-3.4); Lymphocytes % (auto) 10.1 %; Monocytes # (auto) 0.73 K/uL (0.11-0.59); Monocytes % (auto) 3.3 %; Neutrophils # (auto) 19.18 K/uL (1.4-6.5); Neutrophils % (auto) 86.1 %; RBC Morphology Unremarkable
[2021-12-05 00:10] LABS: Alanine Aminotransferase 21 U/L (7-52); Albumin Globulin Ratio 1.3 (0.9-2); Albumin Level 4.1 gm/dl (3.4-5.0); Alkaline Phosphatase 70 U/L (34-104); Anion Gap 21 (3-11); BUN Creatinine Ratio 19.7 (10-20); Bilirubin,Total 0.3 mg/dl (0.2-1.0); Blood Urea Nitrogen 15 mg/dl (6-23); Calcium 8.7 mg/dl (8.5-10.1); Carbon Dioxide 15 mmol/L (21-32); Chloride 100 mmol/L (98-107); Creatine Kinase 330 U/L (26-192); Creatinine Clr Calc Pharmacy 140.2 ml/min; Est GFR (African American) 129.1 ml/min; Est GFR (Non-African American) 111.3 ml/min; Globulin 3.2 gm/dl (2.5-4.0); Glucose 213 mg/dl (70-99(Fasting)); Magnesium 2.1 mg/dl (1.7-2.4); Phosphorus 4.6 mg/dl (2.5-4.9); Sodium 136 mmol/L (136-145); Total Protein 7.3 gm/dl (6.0-8.3)
[2021-12-05 00:10] LABS: RBC Urine Automated 0-4 /hpf (0-4)
[2021-12-05 00:16] LABS: Amphetamines+Metham, Urine Neg (Neg); Barbiturates, Urine Neg (Neg); Benzodiazepine, Urine Pos (Neg); Cocaine, Urine Neg (Neg); MDMA (Ecstacy), Urine Neg (Neg); Methadone, Urine Neg (Neg); Opiate, Urine Neg (Neg); Phencyclidine, Urine Neg (Neg)
[2021-12-05] MEDS ORDERED: LORazepam 2 MG/1 ML VIAL IV STA (00:27)
[2021-12-05] MEDS ORDERED: MULTI-VITAMIN INFUSION 10 ML, THIAMINE HCL 100 MG, FOLIC ACID 1 MG in SODIUM CHLORIDE 0... IV ONE (00:27)
[2021-12-05] MEDS ORDERED: STAT IV Infusion **Titration per Protocol STA ×2 (00:49→01:47)
[2021-12-05 00:50] LABS: Adenovirus PCR Not Detected (NotDetected); Bordetella parapertussis PCR Not Detected (NotDetected); Bordetella pertussis PCR Not Detected (NotDetected); Chlamydia pneumoniae PCR Not Detected (NotDetected); Coronavirus 229E PCR Not Detected (NotDetected); Coronavirus CoV-2 (COVID19)PCR Not Detected (NotDetected); Coronavirus HKU1 PCR Not Detected (NotDetected); Coronavirus NL63 PCR Not Detected (NotDetected); Coronavirus OC43PCR Not Detected (NotDetected); Human Metapneumovirus PCR Not Detected (NotDetected); Influenza A PCR Not Detected (NotDetected); Influenza B PCR Not Detected (NotDetected); Mycoplasma pneumoniae PCR Not Detected (NotDetected); Parainfluenza Virus 1 PCR Not Detected (NotDetected); Parainfluenza Virus 2 PCR Not Detected (NotDetected); Parainfluenza Virus 3 PCR Not Detected (NotDetected); Parainfluenza Virus 4 PCR Not Detected (NotDetected); Respiratory Syncytial VirusPCR Not Detected (NotDetected); Rhinovirus/Enterovirus PCR Not Detected (NotDetected)
[2021-12-05 01:11] LABS: Base Excess ABG -4.9 mEq/L (-9-1.8); HCO3 ABG 21 mmol/L (19-24); Oxygen Saturation ABG 98.1 % (90-95); PCO2 ABG 39 mmHg (35-46); PO2 ABG 114 mmHg (80-95); pH ABG 7.34 (7.35-7.45)
[2021-12-05 01:20] LABS: Allen Test Pos (Pos)
[2021-12-05] MEDS ORDERED: PIPERACILL/TAZOBAC CONSULT ACTIVE PRN ×2 (01:23→01:32)
[2021-12-05 01:27] LABS: Potassium 3.8 mmol/L (3.5-5.1)
[2021-12-05] MEDS ORDERED: PIPERACILLIN/TAZOBACTAM 4.5 GM/120 ML BAG IV STA (01:31)
[2021-12-05] MEDS ORDERED: CARBOHYDRATES FOR HYPOGLYCEMIA PO PRN (01:32)
[2021-12-05] MEDS ORDERED: fentaNYL citrate 100 MCG/2 ML VIAL IV PRN ×2 (01:32)
[2021-12-05] MEDS ORDERED: PROPOFOL BOLUS FROM BAG IV PRN (01:32)
[2021-12-05] MEDS ORDERED: DEXTROSE 50% 50 ML SYRINGE IV PRN (01:32)
[2021-12-05] MEDS ORDERED: ICU PROTOCOL FOR HYPERGLYCEMIA PRN (01:32)
[2021-12-05] MEDS ORDERED: GLUCAGON FOR INJ 1 MG VIAL SQ PRN (01:32)
[2021-12-05] MEDS ORDERED: propofoL 1,000 MG/100 ML VIAL IV SCH (01:32)
[2021-12-05] MEDS ORDERED: PIPERACILLIN/TAZOBACTAM 3.375 GM in DEXTROSE 5% 100 ML IV SCH (01:32)
[2021-12-05] MEDS ORDERED: ONDANSETRON 4 MG OD TAB PO PRN (01:32)
[2021-12-05] MEDS ORDERED: GLUCOSE 40% GEL 15 GM TUBE PO PRN (01:32)
[2021-12-05] MEDS ORDERED: GLUCOSE 10 TABS/TUBE PO PRN (01:32)
--- NOTE | 2021-12-05 01:47 | History & Physical Report ---
Date of Service December 05, 2021 Assessment & Plan (1) Gastroparesis: (2) Type 1 diabetes, uncontrolled, with gastroparesis: (3) Anxiety: (4) Seizure: (5) Elevated lactic acid level: (6) Leukocytosis: Plan: 21yo female with history of Type I DM with gastroparesis presenting after being found down at home, possible seizure activity. Patient was intubated in the ER for airway protection. Has received Ativan, Versed, Propofol as well as Keppra. 1. Neuro - intubated and sedated. Withdrawing from painful stimuli. Possible seizure activity - etiology unclear. Blood sugar reported normal. Utox with +THC - patient with medical marijuana card for anxiety, Benzos which were administered prior to arrival. EtOH of 10.7. 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 Does not voice concern for heavy or daily drinking - ?consideration of EtOH withdrawal seizure is doubtful. -Admit to MICU -Maintain seizure precautions -Check EEG - order to be placed in AM -Continue sedation with propofol -Pain control with Fentanyl as needed -Contineu Remeron 7.5mg po qHS -Keppra 500mg IV BID -Lactate has improved from 12.2 --> 2.5 2. Pulmonary - patient intubated and sedated. Adequate oxygenation on 350/40%/ 8. -Check ABG -Zosyn 3.375mg IV q 8 for possible aspiration - patient with large amount of liquid return in OGT 3. CV - sinus tachycardia, blood pressure is stable -Monitor 4. GI - patient with gastroparesis. She is seen at [facility] and is being considered for an experimental drug. -Continue OGT to LIWS -Zofran PRN 5. - renal function intact. Perez in place -Monitor I/O q shift -Monitor renal function 6. Heme - no active issues 7. ID - leukocytosis, tachycardia -Follow cultures - blood and urine -Empiric Zosyn 8. Endocrine - Patient with DM I. Improved control from previous. Last NaoK0r=7.2 on 07/17/21. Patient follows with Endocrinology -Lantus 10u BID -ISS -Goal blood sugar 100 - 180 -Check HgbAiC Admission and Anticipated Discharge Date Admission Date: December 05, 2021 History of Present Illness Chief Complaint: Seizure Primary Care Provider: Munira Altamirano PA-C Patient intubated and sedated. History obtained through mother at bedside, ER physician and chart review. Sonia Diaz is a 21yo female with history of Type I DM with severe gastroparesis, Anxiety/Depression. 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 She was reportedly in her usual state of health yesterday with exception of complaining of constipation and abdominal bloating. Also complaining that her blood sugars were higher than usual. Mother was home this evening and heard a "thump" coming from the patient's room. At first she thought nothing of it then she heard a whining/moaning sound. She went to check on her daughter and found her laying face down covered in vomit. She was on the floor in a small space between the bed and dresser. She was displaying seizure like movements with her arms and legs and was unresponsive. Her mother checked patient's blood sugar and found it to be normal in the 90's. EMS was called. Patient was administered Ativan 2mg IV and 2mg IM as well as Versed 10mg IV en route. No obvious seizure activity reported upon arrival to the ER. Patient with sonorous respirations - intubated for airway protection. OGT placed with return of large amount of brown liquid. ER Course: Intubation with mechanical ventilation, Propofol 20mg IV then gtt, NSS at 125ml/hr, Keppra x 1000mg, Ativan 2mg IV, Banana bag Allergies Allergy/AdvReac Type Severity Reaction Status Date / Time Lady Bugs Allergy Severe Swelling Uncoded 12/05/21 00:23 and hives Home Medications Medication Instructions Recorded Confirmed Type fluticasone propionate 50 2 spray INTRANASAL DAILY PRN 04/26/21 12/05/21 History mcg/actuation nasal spray,suspension cetirizine 10 mg tablet 10 mg PO QAM 30 Days #30 tab 04/30/21 12/05/21 Rx blood-glucose meter,continuous #1 ea 05/23/21 09/09/21 Rx (Dexcom G6 Sas Developer Analyst) Medical Marijuana 1 dose INHALATION UD PRN 06/12/21 12/05/21 History magnesium 250 mg tablet 250 mg PO DAILY #30 tab 07/17/21 12/05/21 Rx insulin glargine 100 unit/mL (3 20 unit SUBCUT QAM #15 ml 07/18/21 12/05/21 Rx mL) subcutaneous pen (Lantus Solostar U-100 Insulin) blood sugar diagnostic (OneTouch ea 08/01/21 09/09/21 History Verio test strips) glucagon 3 mg/actuation nasal 3 mg INTRANASAL ONCE PRN #2 ea 08/01/21 12/05/21 Rx spray (Baqsimi) lancets 33 gauge (OneTouch Delica ea 08/01/21 09/09/21 History Lancets) pen needle, diabetic 31 gauge x 08/01/21 09/09/21 History 5/16" (BD Ultra-Fine Short Pen Needle) pen needle, diabetic 31 gauge x #400 ea 08/15/21 09/09/21 Rx 5/16" (BD Ultra-Fine Short Pen Needle) blood-glucose transmitter (Dexcom #1 ea 08/26/21 09/09/21 Rx G6 Transmitter) acetone (urine) test (Ketostix) #50 ea 09/25/21 09/25/21 Rx levonorgestrel-ethinyl estradiol 1 tab PO QAM #84 tab 10/15/21 12/05/21 Rx 0.1 mg-20 mcg tablet (Lutera (28)) ondansetron 4 mg disintegrating 4 mg PO TID PRN #90 tab 10/15/21 12/05/21 Rx tablet escitalopram oxalate 20 mg tablet 20 mg PO DAILY #30 tab 10/18/21 12/05/21 Rx (Lexapro) linaclotide 145 mcg capsule 145 mcg PO DAILY #30 cap 10/21/21 12/05/21 Rx (Linzess) insulin lispro 100 unit/mL 0 unit SUBCUT DIRECTED 12/05/21 12/05/21 History subcutaneous pen (Humalog KwikPen (U-100) Insulin) metoclopramide HCl 10 mg tablet 10 mg PO DAILYBB 12/05/21 12/05/21 History mirtazapine 7.5 mg tablet 7.5 mg PO HS 12/05/21 12/05/21 History Past Med/Surg History Medical History Anxiety and depression Diabetes mellitus type 1 Diabetes type 1, uncontrolled Diabetic retinopathy associated with type 1 diabetes mellitus Gastritis Gastroparesis Hx of diabetic retinopathy Hypoglycemia due to insulin Hypoglycemia unawareness associated with type 1 diabetes mellitus IBS (irritable bowel syndrome) Surgical History H/O eye surgery LASER SURGERY RT/LEFT History of colonoscopy History of ear surgery LEFT EAR S/P INFECTION FROM EARING History of esophagogastroduodenoscopy (EGD) History of myringotomy History of tonsillectomy [place] teeth removed Family History Mother Family history of diabetes mellitus Grandmother (Maternal) Family history of diabetes mellitus Other Breast cancer Myocardial infarction No family history of adverse response to anesthesia Ovarian cancer Prostate cancer Denies family history of Colorectal cancer Social History Smoking Status: Current every day smoker Second Hand Exposure: No; Hx Alcohol Use: Yes Alcohol type: beer, wine and hard liquor Hx Substance Use: Yes Last Used Substance Other:: ONLY RX IVA Preferred Language: Chinese Communication Ability: Effective Irrigator Overhead Required: No Beliefs That Will Affect Care: None Current Living Situation: Family Current Living Situation Comment: Lives with mother and mother's Other Information That Helps Us Care for You: No Feels Safe at Home: Yes Dental Care, Regularly: Yes Physical Activity Frequency: 5-6 Times per Week Assistive Devices: Oxygen - Continuous Review of Systems Review of Systems: Unobtainable due to endotracheal tube Physical Exam Physical Exam: General: patient intubated and sedated, withdraws from pain, seems to be reaching for ETT Skin: warm, dry, excoriations on RLE, scar on right foot from accident with [employer] lift at work, bleeding from right 4th toe, abrasions on dorsum of left foot HEENT: NC/AT, PERRL, anicteric sclera, conjunctiva without injection, external ear normal to inspection and nontender, nares patent, moist mucus membranes, dentition intact, neck supple, trachea midline, no LAD, no thyromegaly, no JVD Heart: +S1/S2, regular, tachycardic, no m/r/g Lungs: equal air entry bilaterally, no rales/rhonchi/wheezes Abd: +BS, soft, mildly distended, no masses/organomegaly/ascites Ext: warm, 2+ pulses in UE/LE bilaterally, no clubbing/cyanosis or edema Neuro: intubated, sedated, withdraws from painful stimuli Results & Data Results & Data ([facility]) Vital Signs (Past 12 Hours) Vital Signs Temp Pulse Pulse Resp BP BP Pulse Ox 12/05/21 01:04 114 H 41 H 107/64 100 12/05/21 00:01 36 C L 126 H 28 H 114/58 L 100 12/04/21 23:37 122 H 39 H 128/65 100 12/04/21 23:20 120 H 36 H 100 Laboratory Results Laboratory Results WBC 22.28 K/uL (4.8-10.8) H 12/04/21 23: RBC 4.92 M/uL (4.2-5.4) 12/04/21 23: Hgb 14.1 g/dL (12.0-16.0) 12/04/21 23: POC Hgb 15.0 g/dl (12.0-16.0) 12/04/21 23: Hct 42.2 % (37-47) 12/04/21 23: POC Hct 44 % (37-47) 12/04/21 23: MCV 85.8 fL (80-100) 12/04/21 23: MCH 28.7 pg (25-34) 12/04/21 23: MCHC 33.4 g/dL (32-36) 12/04/21 23: RDW Std Deviation 42.1 fL (36.4-46.3) 12/04/21: RDW Coeff of Mil 13.6 % (11.5-14.5) 12/04/21: Plt Count 285 K/uL (130-400) 12/04/21: MPV 12.5 fL (7.4-10.4) H 12/04/21: Immature Gran % (Auto) 0.4 % 12/04/21: Neut % (Auto) 86.1 % 12/04/21: Lymph % (Auto) 10.1 % 12/04/21: Stanton % (Auto) 3.3 % 12/04/21 23: Eos % (Auto) 0.0 % 12/04/21 23: Baso % (Auto) 0.1 % 12/04/21: Neut # (Auto) 19.18 K/uL (1.4-6.5) H 12/04/21: Lymph # (Auto) 2.24 K/uL (1.2-3.4) 12/04/21: Stanton # (Auto) 0.73 K/uL (0.11-0.59) H 12/04/21: Eos # (Auto) 0.00 K/uL (0-0.5) 12/04/21: Baso # (Auto) 0.03 K/uL (0-0.2) 12/04/21: Immature Gran # (Auto) 0.10 K/uL (0.00-0.02) H 12/04/21: RBC Morphology Unremarkable 12/04/21: ABG pH 7.34 (7.35-7.45) L 12/05/21 01:00 ABG pCO2 39 mmHg (35-46) 12/05/21 01:00 ABG pO2 114 mmHg (80-95) H 12/05/21 01:00 ABG HCO3 21 mmol/L (19-24) 12/05/21 01:00 ABG O2 Saturation 98.1 % (90-95) H 12/05/21 01:00 ABG Base Excess -4.9 mEq/L (-9-1.8) 12/05/21 01:00 Conner Test Pos (Pos) 12/05/21 01:00 VBG pH 7.12 (7.36-7.41) L 12/04/21: VBG pCO2 55 mmHg (38-50) H 12/04/21: VBG pO2 52 mmHg 12/04/21: VBG HCO3 17 mmol/L 12/04/21: VBG O2 Saturation 74.4 % 12/04/21 VBG Base Excess -12.3 mEq/L 12/04/21 Barometric Pressure 740.3 mm/Hg 12/05/21 01:00 Oxygen Given 40 FIO2 12/05/21 01:00 POC Sodium 137 mmol/L (135-144) 12/04/21 23: Sodium 136 mmol/L (136-145) 12/04/21 23: POC Potassium 4.7 mmol/L (3.3-5.0) 12/04/21 23: Potassium 3.8 mmol/L (3.5-5.1) 12/05/21 01:00 POC Chloride 101 mmol/L (101-112) 12/04/21 23: Chloride 100 mmol/L (98-107) 12/04/21 23: Carbon Dioxide 15 mmol/L (21-32) L 12/04/21 23: POC Total CO2 19 mmol/L (24-31) L 12/04/21: Anion Gap 21 (3-11) H 12/04/21 23: POC Anion Gap 22.0 mmol/L (16-25) 12/04/21 23: POC BUN 17 mg/dl (7-18) 12/04/21: BUN 15 mg/dl (6-23) 12/04/21 23: Creatinine 0.76 mg/dl (0.6-1.2) 12/04/21 23: POC Creatinine 0.7 mg/dl (0.6-1.3) 12/04/21 23: Est Cr Clr Drug Dosing 140.2 ml/min 12/04/21 23: Est GFR ( Amer) 129.1 ml/min 12/04/21 23: Est GFR (Non-Af Amer) 111.3 ml/min 12/04/21 23: BUN/Creatinine Ratio 19.7 (10-20) 12/04/21 23: Glucose 213 mg/dl (70-99(Fasting)) H 12/04/21 23: POC Glucose 193 mg/dl (70-99) H 12/04/21 23: POC Glucose (other) 220 mg/dl (70-99) H 12/04/21 23: Osmolality 308 mOsm/kg (280-300) H 12/04/21 23: Lactate 2.5 mmol/L (0.4-2.0) H* 12/05/21 01:00 Calcium 8.7 mg/dl (8.5-10.1) 12/04/21 23: POC Ioniz Calcium Levi 1.14 mmol/l (1.12-1.32) 12/04/21 23: Phosphorus 4.6 mg/dl (2.5-4.9) 12/04/21 23: Magnesium 2.1 mg/dl (1.7-2.4) 12/04/21 23: Total Bilirubin 0.3 mg/dl (0.2-1.0) 12/04/21 23: AST 20 U/L (13-39) 12/05/21 01:00 ALT 21 U/L (7-52) 12/04/21 23: Alkaline Phosphatase 70 U/L (34-104) 12/04/21 23: Total Creatine Kinase 330 U/L (26-192) H 12/04/21 23: Total Protein 7.3 gm/dl (6.0-8.3) 12/04/21 23: Albumin 4.1 gm/dl (3.4-5.0) 12/04/21 23: Globulin 3.2 gm/dl (2.5-4.0) 12/04/21 23: Albumin/Globulin Ratio 1.3 (0.9-2) 12/04/21 23: Urine Color Yellow 12/04/21 23: Urine Appearance Clear (Clear) 12/04/21 23: Urine pH 5.0 (4.5-7.5) 12/04/21 23:33 Ur Specific Linn 1.018 (1.000-1.030) 12/04/21 23: Urine Protein 1+ (Negative) H 12/04/21 23: Urine Glucose (UA) Negative (Negative) 12/04/21 23: Urine Ketones Trace (Negative) H 12/04/21 23: Urine Blood 2+ (Negative) H 12/04/21 23: Urine Nitrite Negative (Negative) 12/04/21: Urine Bilirubin Negative (Negative) 12/04/21 23: Urine Urobilinogen Negative (Negative) 12/04/21 23: Ur Leukocyte Esterase 1+ (Negative) H 12/04/21 23:33 Urine WBC (Auto) >30 /hpf (0-5) H 12/04/21 23: Urine RBC (Auto) 0-4 /hpf (0-4) 12/04/21 23:33 U Hyaline Cast (Auto) 1-5 /lpf (0-5) 12/04/21 23:33 U Epithel Cells (Auto) 20-30 /lpf (0-5) H 12/04/21 23:33 Urine Bacteria (Auto) Negative (Negative) 12/04/21 23:33 Urine Yeast Budding (None Prsent) A 12/04/21 23:33 Urine Osmolality 593 mOsm/kg (500-800) 12/04/21 23:33 Urine Opiates Screen Neg (Neg) 12/04/21 23:33 Ur Methadone, Qual Neg (Neg) 12/04/21 23:33 Urine Barbiturates Neg (Neg) 12/04/21 23:33 Ur Phencyclidine (PCP) Neg (Neg) 12/04/21 23:33 U Amphetamin/Meth Scrn Neg (Neg) 12/04/21 23:33 MDMA (Ecstasy) Screen Neg (Neg) 12/04/21 23:33 U Benzodiazepines Scrn Pos (Neg) H 12/04/21 23:33 Ur Cocaine Metabolite Neg (Neg) 12/04/21 23:33 U Marijuana (THC) Screen Pos (Neg) H 12/04/21 23:33 Ethyl Alcohol mg/dL 10.7 mg/dl (<10.0) H 12/04/21 23:26 Adenovirus (PCR) Not Detected (NotDetected) 12/04/21 23:42 B. pertussis DNA (PCR) Not Detected (NotDetected) 12/04/21 23:42 B.parapertussis DNA PCR Not Detected (NotDetected) 12/04/21 23:42 C. pneumoniae DNA (PCR) Not Detected (NotDetected) 12/04/21 23:42 Coronavirus OC43 (PCR) Not Detected (NotDetected) 12/04/21 23:42 Coronavirus HKU1 (PCR) Not Detected (NotDetected) 12/04/21 23:42 Coronavirus 229E (PCR) Not Detected (NotDetected) 12/04/21 23:42 SARS-CoV-2 (PCR) Not Detected (NotDetected) 12/04/21 23:42 Coronavirus NL63 (PCR) Not Detected (NotDetected) 12/04/21 23:42 Human Metapneumovir PCR Not Detected (NotDetected) 12/04/21 23:42 Influenza Type A (PCR) Not Detected (NotDetected) 12/04/21 23:42 Influenza Type B (PCR) Not Detected (NotDetected) 12/04/21 23:42 M. pneumoniae (PCR) Not Detected (NotDetected) 12/04/21 23:42 Parainfluenza 1 (PCR) Not Detected (NotDetected) 12/04/21 23:42 Parainfluenza 2 (PCR) Not Detected (NotDetected) 12/04/21 23:42 Parainfluenza 3 (PCR) Not Detected (NotDetected) 12/04/21 23:42 Parainfluenza 4 (PCR) Not Detected (NotDetected) 12/04/21 23:42 RSV (PCR) Not Detected (NotDetected) 12/04/21 23:42 Entero/Rhino (PCR) Not Detected (NotDetected) 12/04/21 23:[address] Head - Per stat rad - Normal CT. Compared to study from April 28, 2021 Code Status & VTE Plan VTE Prophylaxis Plan VTE Prophylaxis will be ordered: Yes Critical Care Time 45 minutes PG Care Time/CCT Total # of Minutes Spent Total Time Spent with Patient: Total time spent is greater than 50% in coordination of care (as documented) at patient's floor/unit and/or counseling patient: Coding Level of Care Code None Diagnoses Gastroparesis K31.84 Type 1 diabetes, uncontrolled, with gastroparesis E10.43; K31.84; E10.65 Anxiety F41.9 Seizure R56.9 Elevated lactic acid level R79.89 Leukocytosis D72.829
[2021-12-05] MEDS ORDERED: fentaNYL citrate 2,500 MCG/250 ML BAG IV SCH (02:00)
[2021-12-05] MEDS: levETIRAcetam 500 MG in 0.9 % SODIUM CHLORIDE 100 ML IV SCH ×2 (02:40→14:09)
[2021-12-05] MEDS: propofoL 1,000 MG/100 ML VIAL IV SCH ×3 (02:55→15:12)
[2021-12-05] MEDS: NORMOSOL-R 1,000 ML IV SCH ×2 (03:32→20:00)
--- NOTE | 2021-12-05 05:30 | Critical Care Consultation ---
Date of Consultation December 05, 2021 Assessment & Plan (1) Admitted to intensive care unit: Reason Critically Ill: 21-year-old female who is status post witnessed seizure requiring heavy sedation with apparent postictal. Eventually required endotracheal intubation for airway protection. NEURO - * [facility] ICU: Unable to assess * Seizure: * Witnessed tonic-clonic like seizure activity. Patient had vomited. Required aggressive benzodiazepine treatment initially. Patient became agitated status post benzo administration with question of post ictal state. Patient without seizure activity in the emergency department. Intubated for airway protection. * CT head without acute findings. * Sedated on propofol during exam. * No focal neurological deficits on exam. * Withdrawals equally in all 4 extremities to painful stimuli. * Reaches for endotracheal tube. * No visible seizure activity appreciated. * Loaded with Keppra in the emergency department. Continue Keppra 500 mg IV twice daily. * Continue with propofol drip overnight. * EEG ordered for a.m. * Talk screen remarkable for marijuana for which the patient takes based on medical prescription. Benzodiazepine positive consistent with recent administration. * Low threshold for transfer to tertiary care facility in the event of return of breakthrough seizure-like activity for 24-hour EEG monitoring. CARDIAC/VASCULAR - * No history of cardiovascular disease. * EKG: Sinus tachycardia at 123 bpm. T wave inversions noted inferiorly. No ST elevations. QTc 463 ms. * Monitor on telemetry. RESPIRATORY - * Intubated for airway protection: * Status post seizure activity with benzodiazepine administration for control of seizures. * Concern for possible aspiration. * Covered with Zosyn. * Wean ventilator settings as tolerated. * ABGs as needed. GI/NUTRITION - * Significant history of gastroparesis, IBS, chronic diarrhea: * Consider GI consultation when appropriate. RENAL/LYTES - * No significant electrolyte derangements * IVF: Normosol at 80 mL's per hour - * No concerns at this time * Perez in place - Strict I&Os. ENDO - * IDDM * BSGs per unit protocol. ISS --> gtt per unit policy. HEME - * Stable H&H ID - * Aspiration into airway: * Suctioning mild amounts of gastric like contents through ETT. * Covered w/ Zosyn * f/u CXR. May d/c if without development of focal pneumonia. Consider Augmentin PO but would be cautious in patient w/o chronic diarrhea at baseline. LINES/IV ACCESS - * PIVs x3 * ETT * OGT * Perez DVT PROPHYLAXIS - * SCDs I have personally spent 45 minutes of critical care time in the direct management of this patient. This is a life/limb threatening event. This includes time spent evaluating patient, direct bedside care, chart review, placing orders, interpretation of diagnostic studies, discussion with consultants, patient, and family members, as well as other required patient management act ivities. This time is exclusive of all separately billable procedures, and teaching time and separate from and in addition to any other critical care service time. Thank you for allowing us to participate in the care of this patient. Please refer to my attending physician's documentation for any further recommendations. (2) Seizure: (3) Elevated lactic acid level: (4) High anion gap metabolic acidosis: (5) Endotracheally intubated: (6) Chronic diarrhea: (7) Gastroparesis: (8) Irritable bowel syndrome with diarrhea: (9) Diabetes type 1, uncontrolled: Supervising Physician Co-Signing Physician Notes I have personally evaluated and examined this patient. I agree with assessment and plan of Lena Hay PA-C. Wean sedatives and move towards extubation, likely had aspiration pneumonitis. History of Present Illness Attending Physician: Lissa Lima, DO History of Present Illness Patient is a 21-year-old female with a significant past medical history of insulin-dependent diabetes, gastroparesis, anxiety, depression. Per conversation with patient's mother and review of chart records, the patient has been treated for insulin-dependent diabetes since she was a child. It appears as though she lost her insurance at some point in for the last year or so and was without her insulin during that time. Her A1c climbed to greater than 14 at that point. She did receive insurance again as since been on a strict regime following with endocrinology in the outpatient setting. She has had much stricter control of her A1c and it has been improved as of recently. Unfortunately, the patient suffers from severe gastroparesis as well as irritable bowel disease for which she is aggressively managed in the outpatient setting. Recently, she has been evaluated at [facility] for the office therapies. 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 Mother reports that the patient had been at her typical state of health up until this evening. She reports that she heard a "thud" in the bedroom and then the patient was making odd noises. When she arrived in the bedroom, patient was found between her bed and the dresser and had concerns for generalized seizure activity. Additionally, vomit was noted all over the patient's mouth. EMS was contacted and the patient's mother did attempt to improve her blood glucose levels as they had apparently read low. Patient did receive IM followed by IV Ativan upon EMS arrival. Patient apparently became combative during transport and removed both an IO and IV sites. She did receive midazolam in route to the emergency department secondary agitation as well. Upon arrival in the emergency department, the patient was intubated for airway protection. She was started on propofol drip. CT of the head was unremarkable. Laboratory assessment demonstrates a high anion gap metabolic acidosis as well as a lactate of greater than 12. Leukocytosis in excess of 22,000. Patient unable to contribute to history of present illness secondary to intubation with sedation Allergies Allergy/AdvReac Type Severity Reaction Status Date / Time Bugs Allergy Severe Swelling Uncoded 12/05/21 00:23 and hives Home Medications Medication Instructions Recorded Confirmed Type fluticasone propionate 50 2 spray INTRANASAL DAILY PRN 04/26/21 12/05/21 History mcg/actuation nasal spray,suspension cetirizine 10 mg tablet 10 mg PO QAM 30 Days #30 tab 04/30/21 12/05/21 Rx blood-glucose meter,continuous #1 ea 05/23/21 09/09/21 Rx (Dexcom G6 Electronic Assembler) Medical Marijuana 1 dose INHALATION UD PRN 06/12/21 12/05/21 History magnesium 250 mg tablet 250 mg PO DAILY #30 tab 07/17/21 12/05/21 Rx insulin glargine 100 unit/mL (3 20 unit SUBCUT QAM #15 ml 07/18/21 12/05/21 Rx mL) subcutaneous pen (Lantus Solostar U-100 Insulin) blood sugar diagnostic (OneTouch ea 08/01/21 09/09/21 History Verio test strips) glucagon 3 mg/actuation nasal 3 mg INTRANASAL ONCE PRN #2 ea 08/01/21 12/05/21 Rx spray (Baqsimi) lancets 33 gauge (OneTouch Delica ea 08/01/21 09/09/21 History Lancets) pen needle, diabetic 31 gauge x 08/01/21 09/09/21 History 5/16" (BD Ultra-Fine Short Pen Needle) pen needle, diabetic 31 gauge x #400 ea 08/15/21 09/09/21 Rx 5/16" (BD Ultra-Fine Short Pen Needle) blood-glucose transmitter (Dexcom #1 ea 08/26/21 09/09/21 Rx G6 Transmitter) acetone (urine) test (Ketostix) #50 ea 09/25/21 09/25/21 Rx levonorgestrel-ethinyl estradiol 1 tab PO QAM #84 tab 10/15/21 12/05/21 Rx 0.1 mg-20 mcg tablet (Lutera (28)) ondansetron 4 mg disintegrating 4 mg PO TID PRN #90 tab 10/15/21 12/05/21 Rx tablet escitalopram oxalate 20 mg tablet 20 mg PO DAILY #30 tab 10/18/21 12/05/21 Rx (Lexapro) linaclotide 145 mcg capsule 145 mcg PO DAILY #30 cap 10/21/21 12/05/21 Rx (Linzess) insulin lispro 100 unit/mL 0 unit SUBCUT DIRECTED 12/05/21 12/05/21 History subcutaneous pen (Humalog KwikPen (U-100) Insulin) metoclopramide HCl 10 mg tablet 10 mg PO DAILYBB 12/05/21 12/05/21 History mirtazapine 7.5 mg tablet 7.5 mg PO HS 12/05/21 12/05/21 History Patient History Medical History Anxiety and depression Diabetes mellitus type 1 Diabetes type 1, uncontrolled Diabetic retinopathy associated with type 1 diabetes mellitus Gastritis Gastroparesis Hx of diabetic retinopathy Hypoglycemia due to insulin Hypoglycemia unawareness associated with type 1 diabetes mellitus IBS (irritable bowel syndrome) Surgical History H/O eye surgery LASER SURGERY RT/LEFT History of colonoscopy History of ear surgery LEFT EAR S/P INFECTION FROM EARING History of esophagogastroduodenoscopy (EGD) History of myringotomy History of tonsillectomy [place] teeth removed Family History Mother Family history of diabetes mellitus Grandmother (Maternal) Family history of diabetes mellitus Other Breast cancer Myocardial infarction No family history of adverse response to anesthesia Ovarian cancer Prostate cancer Denies family history of Colorectal cancer Social History Smoking Status: Current every day smoker Second Hand Exposure: No; Hx Alcohol Use: Yes Alcohol type: beer, wine and hard liquor Hx Substance Use: Yes Last Used Substance Other:: ONLY RX [facility] Preferred Language: Thai Communication Ability: Effective Housing Assistant Property Manager Required: No Beliefs That Will Affect Care: None Current Living Situation: Family Current Living Situation Comment: Lives with mother and mother's Other Information That Helps Us Care for You: No Feels Safe at Home: Yes Dental Care, Regularly: Yes Physical Activity Frequency: 5-6 Times per Week Assistive Devices: Oxygen - Continuous Review of Systems Review of Systems: Unobtainable due to endotracheal tube and Unobtainable due to reduced consciousness Physical Exam Physical Exam: VITAL SIGNS - Vital signs and nursing notes were reviewed. GENERAL - 21-year-old female appearing her stated age who is in no acute distress. Intubated and sedated. SKIN - Without rashes. HEAD - NC/AT. EYES - PERRL. Sclera anicteric. Palpebral conjunctiva pink and moist with no injection noted. EARS - No deformities of external structures noted on gross examination bilaterally. NOSE - Midline and without cyanosis. No epistaxis or purulent drainage noted. MOUTH/OROPHARYNX - ETT in place. Without perioral cyanosis. NECK - Neck with FROM. Supple to palpation. No lymphadenopathy noted. No nuchal rigidity. LUNGS - Chest wall symmetric without accessory muscle use, intercostals ret ractions, or central cyanosis. Normal vesicular breath sounds CTA B/L. No wheezes, rales, or rhonchi appreciated. CARDIAC - RRR with S1/S2. No murmur, rubs, or gallops appreciated. ABDOMEN - Abdominal contour obese without pulsations or visible masses. BS hypoactive all four quadrants. No tenderness, palpable masses, hepatosplenomegaly, or ascites noted. EXTREMITIES - No clubbing or peripheral cyanosis. No pretibial edema present. +3/5 radial and dorsalis pedis pulses palpated throughout. NEUROLOGIC - No focal neurological deficits. Withdraws from painful stimuli. Moves all 4 extremities equally. Reached for ETT. Results & Data Results & Data ([facility]) Vital Signs (Past 12 Hours) Vital Signs Temp Pulse Pulse Pulse Resp BP BP 12/05/21 04:00 91 H 20 101/56 L 12/05/21 03:30 92 H 20 102/52 L 12/05/21 03:00 93 H 20 100/51 L 12/05/21 02:30 94 H 20 104/59 L 12/05/21 02:15 99 H 20 12/05/21 02:07 98 H 20 108/60 12/05/21 01:40 37 C 101 H 20 105/61 12/05/21 01:04 114 H 41 H 107/64 12/05/21 00:01 36 C L 126 H 28 H 114/58 L 12/04/21 23:37 122 H 39 H 128/65 12/04/21 23:20 120 H 36 H Pulse Ox 12/05/21 04:00 99 12/05/21 03:30 99 12/05/21 03:00 99 12/05/21 02:30 99 12/05/21 02:15 99 12/05/21 02:07 99 12/05/21 01:40 100 12/05/21 01:04 100 12/05/21 00:01 100 12/04/21 23:37 100 12/04/21 23:20 100 Coding Level of Care Code Critical Care 1st 30-74 mins Diagnoses Admitted to intensive care unit Z78.9 Seizure R56.9 Elevated lactic acid level R79.89 High anion gap metabolic acidosis E87.2 Endotracheally intubated Z97.8 Chronic diarrhea K52.9 Gastroparesis K31.84 Irritable bowel syndrome with diarrhea K58.0 Diabetes type 1, uncontrolled E10.65 Time Spent (min) 45
[2021-12-05] MEDS ORDERED: PIPERACILLIN/TAZOBACTAM 4.5 GM in DEXTROSE 5% 100 ML IV SCH (06:00)
[2021-12-05 06:01] LABS: Basophils # (auto) 0.01 K/uL (0-0.2); Basophils % (auto) 0.1 %; Eosinophils # (auto) 0.01 K/uL (0-0.5); Eosinophils % (auto) 0.1 %; Hematocrit (blood only) 34.9 % (37-47); Hemoglobin 11.8 g/dL (12.0-16.0); Immature Granulocytes # (auto) 0.02 K/uL (0.00-0.02); Immature Granulocytes % (auto) 0.1 %; Lymphocytes # (auto) 1.56 K/uL (1.2-3.4); Lymphocytes % (auto) 9.4 %; Mean Corpuscular Hemoglobin 28.4 pg (25-34); Mean Corpuscular Hgb Conc 33.8 g/dL (32-36); Mean Corpuscular Volume 83.9 fL (80-100); Mean Platelet Volume 11.9 fL (7.4-10.4); Monocytes # (auto) 1.35 K/uL (0.11-0.59); Monocytes % (auto) 8.2 %; Neutrophils # (auto) 13.59 K/uL (1.4-6.5); Neutrophils % (auto) 82.1 %; Platelet Count 212 K/uL (130-400); RDW Coefficient of Variation 13.5 % (11.5-14.5); RDW Standard Deviation 40.8 fL (36.4-46.3); Red Blood Count 4.16 M/uL (4.2-5.4); White Blood Count 16.54 K/uL (4.8-10.8)
[2021-12-05 06:35] LABS: Albumin Level 3.3 gm/dl (3.4-5.0); BUN Creatinine Ratio 26.2 (10-20); Bilirubin Direct 0.1 mg/dl (0-0.2); Bilirubin,Total 0.5 mg/dl (0.2-1.0); Calcium 7.9 mg/dl (8.5-10.1); Creatinine Clr Calc Pharmacy 141.9 ml/min; Est GFR (African American) 146.1 ml/min; Magnesium 1.6 mg/dl (1.7-2.4); Phosphorus 3.5 mg/dl (2.5-4.9); Potassium 3.7 mmol/L (3.5-5.1); Total Protein 5.7 gm/dl (6.0-8.3)
[2021-12-05] MEDS ORDERED: MAGNESIUM SULFATE / D5W 1 GM/100 ML BAG IV ONE (07:00)
--- NOTE | 2021-12-05 07:59 | CT Scan Report ---
HEAD CT NONCONTRAST CT DOSE: 921.40 mGy.cm HISTORY: Unresponsive. Seizure. TECHNIQUE: Multiaxial CT images of the head were performed without the use of intravenous contrast. A utomated exposure control was utilized for this study. A dose lowering technique was utilized adheri ng to the principles of ALARA. Comparison: Head CT 04/28/2021. Findings: The paranasal sinuses and mastoid air cells are clear. The calvarium and skull base are int act. The ventricles and sulci are within normal limits. There is no mass, hematoma, midline shift, or acute infarct. Impression: No acute intracranial abnormality. ACT 112: Negative or not required by law. Electronically signed by: Edison Marmolejo M.D. 12/05/2021 7:19 AM
--- NOTE | 2021-12-05 08:02 | XRay Report ---
SINGLE VIEW CHEST CLINICAL HISTORY: Endotracheal tube placement. Seizure. FINDINGS: An AP, portable, supine chest radiograph is compared to study dated 04/19/2015 and correlated with chest CT dated 04/29/2021. An endotracheal tube has been placed. The tip projects approximately 3 cm above the junaid. The cardiomediastinal silhouette is unremarkable. There are low lung volumes. The lungs and pleural spaces are clear. No pneumothorax is seen. The bony thorax is grossly intact. IMPRESSION: 1. An endotracheal tube has been placed as above. 2. The lungs are clear. ACT 112: Negative or not required by law. Electronically signed by: Chuy Hickey M.D. 12/05/2021 8:00 AM
--- NOTE | 2021-12-05 08:43 | XRay Report ---
KUB CLINICAL HISTORY: Bloating. FINDINGS: An AP, portable, supine abdominal radiograph is compared to study dated 07/17/2021 and corre lated with abdominal CT dated 07/16/2021. An enteric tube is partially visualized projecting below the diaphragm over the proximal stomach. There is gaseous distention of the stomach. No bowel obstructio n is seen. An electronic device projects over the left midabdomen. There are no abnormal abdominal ca lcifications. The bony structures appear intact. IMPRESSION: 1. An enteric tube projects below the diaphragm over the proximal stomach. 2. There is gaseous distention of the stomach with no bowel obstruction identified. Electronically signed by: Chuy Hickey M.D. 12/05/2021 8:41 AM
[2021-12-05] MEDS ORDERED: INSULIN GLARGINE SOLOSTAR 100 UNITS/ML 3 ML PEN SC SCH (09:00)
[2021-12-05] MEDS ORDERED: INSULIN ASPART PER UNIT ONE ×2 (09:34→12:16)
[2021-12-05] MEDS: INSULIN HUMAN REGULAR SC SCH ×3 (09:44→18:22)
[2021-12-05] MEDS: LANSOPRAZOLE 30 MG SOLTAB PO SCH (09:47)
[2021-12-05] MEDS: CETIRIZINE HCL 10 MG TABLET PO SCH (09:47)
[2021-12-05] MEDS: ESCITALOPRAM OXALATE 20 MG TAB PO SCH (09:47)
--- NOTE | 2021-12-05 10:35 | Electroencephalogram ---
EEG Procedure Note Date of Service December 05, 2021 Start / End Times Start Time: 7:52 AM End Time: 8:12 AM Referring Physician Marquise Hay PA-C History Seizure activity Home Medication List Medication Instructions Recorded Confirmed Type fluticasone propionate 50 2 spray INTRANASAL DAILY PRN 04/26/21 12/05/21 History mcg/actuation nasal spray,suspension cetirizine 10 mg tablet 10 mg PO QAM 30 Days #30 tab 04/30/21 12/05/21 Rx blood-glucose meter,continuous #1 ea 05/23/21 09/09/21 Rx (Dexcom G6 Wellness Specialist) Medical Marijuana 1 dose INHALATION UD PRN 06/12/21 12/05/21 History magnesium 250 mg tablet 250 mg PO DAILY #30 tab 07/17/21 12/05/21 Rx insulin glargine 100 unit/mL (3 20 unit SUBCUT QAM #15 ml 07/18/21 12/05/21 Rx mL) subcutaneous pen (Lantus Solostar U-100 Insulin) blood sugar diagnostic (OneTouch ea 08/01/21 09/09/21 History Verio test strips) glucagon 3 mg/actuation nasal 3 mg INTRANASAL ONCE PRN #2 ea 08/01/21 12/05/21 Rx spray (Baqsimi) lancets 33 gauge (OneTouch Delica ea 08/01/21 09/09/21 History Lancets) pen needle, diabetic 31 gauge x 08/01/21 09/09/21 History 5/16" (BD Ultra-Fine Short Pen Needle) pen needle, diabetic 31 gauge x #400 ea 08/15/21 09/09/21 Rx 5/16" (BD Ultra-Fine Short Pen Needle) blood-glucose transmitter (Dexcom #1 ea 08/26/21 09/09/21 Rx G6 Transmitter) acetone (urine) test (Ketostix) #50 ea 09/25/21 09/25/21 Rx levonorgestrel-ethinyl estradiol 1 tab PO QAM #84 tab 10/15/21 12/05/21 Rx 0.1 mg-20 mcg tablet (Lutera (28)) ondansetron 4 mg disintegrating 4 mg PO TID PRN #90 tab 10/15/21 12/05/21 Rx tablet escitalopram oxalate 20 mg tablet 20 mg PO DAILY #30 tab 10/18/21 12/05/21 Rx (Lexapro) linaclotide 145 mcg capsule 145 mcg PO DAILY #30 cap 10/21/21 12/05/21 Rx (Linzess) insulin lispro 100 unit/mL 0 unit SUBCUT DIRECTED 12/05/21 12/05/21 History subcutaneous pen (Humalog KwikPen (U-100) Insulin) metoclopramide HCl 10 mg tablet 10 mg PO DAILYBB 12/05/21 12/05/21 History mirtazapine 7.5 mg tablet 7.5 mg PO HS 12/05/21 12/05/21 History Inpatient Medication List Cetirizine HCl (Cetirizine Hcl 10 Mg Tablet) 10 mg PO QAM [facility] Stop: 01/04/22 08:59 Last Admin: 12/05/21 09:47 Dose: 10 mg Documented by: [id number] Escitalopram Oxalate (Escitalopram Oxalate 20 Mg Tab) 20 mg PO DAILY [facility] Stop: 01/04/22 08:59 Last Admin: 12/05/21 09:47 Dose: 20 mg Documented by: [id number] Propofol (Diprivan) 1,000 mg in 100 mls @ 23.736 mls/hr IV .Q4H13M [facility]; Protocol Stop: 12/07/21 23:29 Last Admin: 12/05/21 08:55 Dose: 40 mcg/kg/min, 23.7 mls/hr Documented by: [id number] Cosigned by: [id number] Titration: 12/05/21 07:09 Dose: 40 mcg/kg/min, 23.7 mls/hr Documented by: [id number] Cosigned by: [id number] Titration: 12/05/21 07:01 Dose: 40 mcg/kg/min, 23.7 mls/hr Documented by: [id number] Cosigned by: [id number] Admin: 12/05/21 02:55 Dose: 40 mcg/kg/min, 23.7 mls/hr Documented by: [id number] Cosigned by: [id number] Titration: 12/05/21 02:55 Dose: 40 mcg/kg/min, 23.7 mls/hr Documented by: [id number] Cosigned by: [id number] Titration: 12/05/21 01:20 Dose: 40 mcg/kg/min, 23.7 mls/hr Documented by: [id number] Titration: 12/05/21 00:23 Dose: 35 mcg/kg/min, 20.8 mls/hr Documented by: [id number] Titration: 12/05/21 00:15 Dose: 30 mcg/kg/min, 17.8 mls/hr Documented by: [id number] Titration: 12/05/21 00:05 Dose: 25 mcg/kg/min, 14.8 mls/hr Documented by: [id number] Admin: 12/04/21 23:24 Dose: 20 mcg/kg/min, 11.9 mls/hr Documented by: [id number] Cosigned by: [id number] Fentanyl Citrate (Fentanyl Citrate) 2,500 mcg in 250 mls @ 2.5 mls/hr IV .Q96H [facility]; Protocol Stop: 12/19/21 01:59 Last Titration: 12/05/21 07:01 Dose: 25 mcg/hr, 2.5 mls/hr Documented by: [id number] Cosigned by: [id number] Admin: 12/05/21 02:10 Dose: 25 mcg/hr, 2.5 mls/hr Documented by: [id number] Cosigned by: [id number] Levetiracetam 500 mg/ Sodium (Chloride) 105 mls @ 420 mls/hr IV Q12H [facility] Stop: 01/04/22 01:59 Last Infusion: 12/05/21 03:00 Dose: 0 mls/hr Documented by: [id number] Admin: 12/05/21 02:40 Dose: 420 mls/hr Documented by: [id number] Parenteral Electrolytes (Plasma-Lyte A) 1,000 mls @ 80 mls/hr IV .[id number] [facility] Stop: 01/04/22 03:29 Last Admin: 12/05/21 03:32 Dose: 80 mls/hr Documented by: [id number] Insulin Human Regular (Insulin Human Regular) 0 units SC Q6 [facility] Stop: 01/04/22 08:14 Last Admin: 12/05/21 09:44 Dose: 3 units Documented by: [id number] Cosigned by: [id number] Lansoprazole (Lansoprazole 30 Mg Soltab) 30 mg PO QAM [facility] Stop: 01/04/22 08:59 Last Admin: 12/05/21 09:47 Dose: 30 mg Documented by: [id number] Discontinued Medications Sodium Chloride (Nss 1000ml) 1,000 mls @ 125 mls/hr IV .Q8H [facility] Stop: 12/05/21 07:29 Last Infusion: 12/05/21 03:36 Dose: 0 mls/hr Documented by: [id number] Admin: 12/04/21 23:53 Dose: 125 mls/hr Documented by: [id number] Levetiracetam 1,000 mg/ Sodium (Chloride) 100 mls @ 440 mls/hr IV NOW STA Stop: 12/04/21 23:34 Last Infusion: 12/04/21 23:54 Dose: 0 mls/hr Documented by: [id number] Admin: 12/04/21 23:53 Dose: 440 mls/hr Documented by: [id number] Multivitamins 10 ml/ Thiamine HCl 100 mg/ Folic Acid 1 mg/Sodium Chloride 1,011.2 mls @ 1,011.2 mls/hr IV .Q1H ONE Stop: 12/05/21 01:26 Last Infusion: 12/05/21 03:36 Dose: 0 mls/hr Documented by: [id number] Admin: 12/05/21 00:58 Dose: 1,011.2 mls/hr Documented by: [id number] Piperacillin Sod/Tazobactam Sod (Zosyn) 4.5 gm in 120 mls @ 230 mls/hr IV NOW STA Stop: 12/05/21 02:02 Last Infusion: 12/05/21 04:05 Dose: 0 mls/hr Documented by: [id number] Admin: 12/05/21 03:32 Dose: 230 mls/hr Documented by: [id number] Piperacillin Sod/Tazobactam (Sod 4.5 gm/ Dextrose) 120 mls @ 30 mls/hr IV Q8H [facility]; Protocol Stop: 12/07/21 05:59 Last Admin: 12/05/21 05:17 Dose: 30 mls/hr Documented by: [id number] Magnesium Sulfate/Dextrose (Magnesium Sulfate / D5w) 1 gm in 100 mls @ 50 mls/hr IV ONE ONE Stop: 12/05/21 08:59 Last Admin: 12/05/21 07:40 Dose: 50 mls/hr Documented by: [id number] Insulin Aspart (Insulin Aspart Per Unit) Confirm Administered Dose 3 units .ROUTE .STK-MED ONE Stop: 12/05/21 09:35 Last Admin: 12/05/21 09:48 Dose: Not Given Documented by: [id number] Insulin Glargine (Insulin Glargine Solostar 100 Units/Ml 3 Ml Pen) 10 units SC BID [facility] Stop: 01/04/22 08:59 Last Admin: 12/05/21 09:46 Dose: 10 units Documented by: [id number] Cosigned by: [id number] Lorazepam (Lorazepam 2 Mg/1 Ml Vial) 2 mg IV NOW STA Stop: 12/05/21 00:28 Last Admin: 12/05/21 00:33 Dose: 2 mg Documented by: [id number] Miscellaneous (Stat Iv Infusion Titration Per Protocol) 1 ea N/A NOW STA Stop: 12/04/21 23:24 Last Admin: 12/05/21 00:54 Dose: Not Given Documented by: [id number] Miscellaneous (Stat Iv Infusion Titration Per Protocol) 1 ea N/A NOW STA Stop: 12/05/21 00:50 Last Admin: 12/05/21 00:54 Dose: Not Given Documented by: [id number] Propofol (Propofol Iv Emulsion 10 Mg/Ml 100 Ml Vial) Confirm Administered Dose 1,000 mg IV .STK-MED ONE Stop: 12/04/21 23:23 Last Admin: 12/05/21 00:54 Dose: Not Given Documented by: [id number] Propofol (Propofol Bolus From Bag) 20 mg IV Q5M PRN PRN Reason: Sedation Stop: 12/07/21 23:22 Last Admin: 12/05/21 00:35 Dose: 20 mg Documented by: [id number] Cosigned by: [id number] Description This is a 21 electrode EEG with a single channel dedicated to limited EKG. The electrodes were placed in accordance with the International 10-20 system. This EEG was completed in the intensive care unit, patient on the ventilator. There is a well-developed posterior dominant rhythm of 10 Hz which is symmetrically distributed. There is a normal anterior to posterior organization. Photic stimulation is unremarkable. Hyperventilation is not performed. There is a symmetric frontal beta rhythm. There is a minimal degree of admixed generalized theta slowing. In the latter part of the study there is attenuation of the background rhythm more prominent generalized slowing with a modest degree of frontal delta activity. There are a few vertex waves as well. No epileptiform abnormalities observed. Interpretation Fairly normal-appearing awake/sleepy EEG. There is some modest background slowing that may suggest a mild nonspecific encephalopathy. No epileptiform abnormalities observed. No findings suggestive of subclinical seizure activity. [facility] EEG Procedure Codes Indication for Procedure (1) Seizure-like activity: Neurology Neurology: [id number] EEG include record awake & sleepy
[2021-12-05] MEDS: ENOXAPARIN INJ 40 MG/0.4 ML SYR SQ SCH (11:23)
--- NOTE | 2021-12-05 11:41 | Electrocardiogram Report ---
Test Reason : Blood Pressure : / mmHG Vent. Rate : 123 BPM Atrial Rate : 123 BPM P-R Int : 148 ms QRS Dur : 088 ms QT Int : 324 ms P-R-T Axes : 061 075 -61 degrees QTc Int : 463 ms Sinus tachycardia T wave abnormality, consider inferior ischemia Abnormal ECG When compared with ECG of 16-JUL-2021 02:03, Inverted T waves have replaced nonspecific T wave abnormality in Inferior leads Confirmed by Miguel Colin ([id number]) on 12/05/2021 11:41:26 AM Referred By: REFERRED SELF Confirmed By:Mio Colin
[2021-12-05] MEDS: PIPERACILLIN/TAZOBACTAM 3.375 GM in DEXTROSE 5% 100 ML IV SCH ×2 (12:17→20:58)
--- NOTE | 2021-12-05 14:50 | Hospitalist Progress Note ---
Date of Service December 05, 2021 Assessment & Plan (1) Seizure: Plan: Sonia is a 21-year-old female who presented with tonic-clonic like seizure activity, for seizure, suspected provoked in the setting of alcohol, medical marijuana, Reglan, and antidepressant use Seizure, first episode, suspect provoked Witnessed tonic-clonic like seizure activity with vomiting Lactate and CK elevated, lactate improved on recheck Patient recently started on Remeron approximately 10/24/2021 EEG this a.m. without epileptiform activity Loaded with Keppra, continue Keppra twice daily Propofol weaned, patient temporarily intubated for airway protection and extubated morning of 12/05 History/subjective currently limited by sedation. Continue to follow Patient does withdraw to thumb pinch bilaterally, opens eyes to voice, and attempts to follow commands briefly before falling back asleep. Does not answer questions this morning. CT head without acute findings Benzo screen positive consistent with administered benzos for seizure, marijuana screen positive consistent with medical marijuana use, ethyl alcohol 10.7 (2) Gastroparesis: Plan: Gastroparesis, chronic Patient reports long history of refractory gastroparesis now following with [facility] specialists With prior hospitalizations for ileus Difficult to get full medication history from patient due to cognitive status,? Provoked seizure in the setting of alcohol, marijuana, reglan, and antidepressant use Would discontinue Reglan, held Remeron, continue escitalopram. Saw [facility] 10/24. Noted patient had failed Reglan, erythromycin in the past. Anticipated anal manometry, Remeron trial with potential domperidone (not FDA approved, but looking into as a trial due to persistent in severity of symptoms) in the future, Zofran as needed. EGD with Botox/pyloric dilation pending insurance approval. Will require continued follow-up with GI as outpatient, pending additional evaluation for interventions as noted above (3) Type 1 diabetes, uncontrolled, with gastroparesis: Plan: Insulin-dependent diabetes mellitus ICU glycemic protocol Glucose 213 on admission, no evidence of hypoglycemia Last A1c 07/17/2021 9.2, patient follows with endocrine as outpatient Home requirements Lantus 20 units every morning, lispro (4) Anxiety: Plan: Continue Escitalopram, mirtazapine temporarily held (5) Elevated lactic acid level: Plan: Resolved, suspect 2/2 seizure (6) Leukocytosis: Plan: Improving Covered with empiric Zosyn for potential of aspiration Pro-Ramana negative Covid, PCR panel negative Follow-up chest x-ray pending, patient 99% on 4 L being weaned following extubation. Discontinue antibiotics if no signs of pneumonia. Plan: DVT prophylaxis: Lovenox Diet: N.p.o. until cognitive status improves Disposition: Recovering in ICU following extubation, downgrade when appropriate CODE STATUS: Full code Admission and Anticipated Discharge Date Admission Date: December 05, 2021 Subjective Patient intubated in the morning, successfully extubated on late morning recheck. Patient remains sedated, subjective limited by sedation. Patient seen again in afternoon in the presence of her mother. Her mother reports that Sonia mostly manages her own medications, and is not sure in all of the changes but notes she has had a very complicated course recently seen by GI and ultimately referred to [facility] for gastroparesis. Has been on Reglan, recently started on mirtazapine which has not produced much benefit. No other known recent medication changes. Neck steps were reported a dilation/Botox procedure versus a medical trial with a [place] but not yet FDA approved medication through her [facility] specialist group. Has not yet moved to those options. Some alcohol use as previously noted. No other known medication changes, drug use. Review of Systems Review of Systems: Unobtainable due to reduced consciousness Physical Exam Physical Exam: General: Extremely somnolent/sedated. Opens eyes to name/physical stimuli, withdraws to thumb pinch, attempts to follow brief commands such as raise your hand before falling back asleep. Does not answer questions. HEENT: Atraumatic, normocephalic. Pulm: Diminished but without overt wheezes or rales and with symmetrical chest rise. No increase in work of breathing. No respiratory distress. Cardiac: Regular, tachycardic, -mrg. Radial pulses intact and symmetrical. Abdominal: Nontender, nondistended, soft. BS present. Results & Data Results & Data ([facility]) Vital Signs (Past 12 Hours) Vital Signs Pulse Resp BP Pulse Ox 12/05/21 13:00 105 H 26 H 101/65 100 12/05/21 12:30 98 H 19 104/59 L 99 12/05/21 12:00 101 H 26 H 116/64 100 12/05/21 11:30 100 H 23 117/66 100 12/05/21 11:00 107 H 23 131/73 100 12/05/21 10:30 98 H 17 116/64 98 12/05/21 10:00 97 H 22 119/67 98 12/05/21 09:55 97 H 19 98 12/05/21 09:30 91 H 20 109/57 L 99 12/05/21 09:00 87 20 113/63 99 12/05/21 08:30 87 20 110/62 99 12/05/21 08:00 87 20 111/64 100 12/05/21 07:30 87 20 112/65 100 12/05/21 07:00 88 20 112/63 100 12/05/21 06:30 87 20 108/62 100 12/05/21 06:00 86 20 107/66 100 12/05/21 05:30 87 20 111/64 100 12/05/21 05:00 88 20 108/64 99 12/05/21 04:30 88 20 106/58 L 99 12/05/21 04:00 91 H 20 101/56 L 99 12/05/21 03:30 92 H 20 102/52 L 99 12/05/21 03:00 93 H 20 100/51 L 99 PG Care Time/CCT Total # of Minutes Spent Total Time Spent with Patient: Total time spent is greater than 50% in coordination of care (as documented) at patient's floor/unit and/or counseling patient: Coding Level of Care Code 39274 Subseq Hosp Care Lvl 2 Diagnoses Gastroparesis K31.84 Type 1 diabetes, uncontrolled, with gastroparesis E10.43; K31.84; E10.65 Anxiety F41.9 Seizure R56.9 Elevated lactic acid level R79.89 Leukocytosis D72.829
[2021-12-05] MEDS ORDERED: MIRTAZAPINE TAB 15 MG TAB PO SCH (21:00)
[2021-12-06] MEDS: INSULIN HUMAN REGULAR SC SCH ×3 (00:44→12:49)
[2021-12-06] MEDS: levETIRAcetam 500 MG in 0.9 % SODIUM CHLORIDE 100 ML IV SCH (01:38)
[2021-12-06] MEDS: PIPERACILLIN/TAZOBACTAM 3.375 GM in DEXTROSE 5% 100 ML IV SCH (04:24)
[2021-12-06 04:54] LABS: Basophils # (auto) 0.01 K/uL (0-0.2); Basophils % (auto) 0.1 %; Eosinophils # (auto) 0.06 K/uL (0-0.5); Eosinophils % (auto) 0.5 %; Hematocrit (blood only) 34.8 % (37-47); Hemoglobin 11.3 g/dL (12.0-16.0); Immature Granulocytes # (auto) 0.02 K/uL (0.00-0.02); Immature Granulocytes % (auto) 0.2 %; Lymphocytes # (auto) 2.17 K/uL (1.2-3.4); Lymphocytes % (auto) 18.7 %; Mean Corpuscular Hemoglobin 27.9 pg (25-34); Mean Corpuscular Hgb Conc 32.5 g/dL (32-36); Mean Corpuscular Volume 85.9 fL (80-100); Mean Platelet Volume 12.1 fL (7.4-10.4); Monocytes % (auto) 10.4 %; Neutrophils # (auto) 8.12 K/uL (1.4-6.5); Neutrophils % (auto) 70.1 %; Platelet Count 197 K/uL (130-400); RDW Coefficient of Variation 13.9 % (11.5-14.5); RDW Standard Deviation 43.3 fL (36.4-46.3); Red Blood Count 4.05 M/uL (4.2-5.4); White Blood Count 11.58 K/uL (4.8-10.8)
[2021-12-06 05:17] LABS: Alanine Aminotransferase 15 U/L (7-52); Albumin Level 3.3 gm/dl (3.4-5.0); Alkaline Phosphatase 46 U/L (34-104); Anion Gap 4 (3-11); Aspartate Aminotransferase 17 U/L (13-39); BUN Creatinine Ratio 19.6 (10-20); Bilirubin Direct 0.1 mg/dl (0-0.2); Bilirubin,Total 0.6 mg/dl (0.2-1.0); Blood Urea Nitrogen 10 mg/dl (6-23); Calcium 8.1 mg/dl (8.5-10.1); Carbon Dioxide 24 mmol/L (21-32); Chloride 111 mmol/L (98-107); Creatinine Clr Calc Pharmacy 180.8 ml/min; Est GFR (African American) > 150.0 ml/min; Est GFR (Non-African American) 136.5 ml/min; Glucose 148 mg/dl (70-99(Fasting)); Potassium 3.6 mmol/L (3.5-5.1); Sodium 139 mmol/L (136-145); Total Protein 5.9 gm/dl (6.0-8.3)
[2021-12-06] MEDS ORDERED: POTASSIUM CHLORIDE CRTAB 20 MEQ TABCR PO STA (05:24)
[2021-12-06] MEDS: NORMOSOL-R 1,000 ML IV SCH (05:44)
[2021-12-06 06:53] LABS: Estimated Average Glucose 174 mg/dl; Hemoglobin A1C 7.7 % (4.5-5.6)
[2021-12-06] MEDS: ESCITALOPRAM OXALATE 20 MG TAB PO SCH (08:32)
[2021-12-06] MEDS: LANSOPRAZOLE 30 MG SOLTAB PO SCH (08:33)
[2021-12-06] MEDS: CETIRIZINE HCL 10 MG TABLET PO SCH (08:33)
[2021-12-06] MEDS: ENOXAPARIN INJ 40 MG/0.4 ML SYR SQ SCH (08:33)
[2021-12-06] MEDS ORDERED: INSULIN GLARGINE SOLOSTAR 100 UNITS/ML 3 ML PEN SC SCH (09:00)
[2021-12-06 09:51] LABS: iSTAT Allen Test Pass; iSTAT Art Bld Gas pCO2 Correct 37 mmHg (35-46); iSTAT Art Bld Gas pH Corrected 7.347 (7.35-7.45); iSTAT Arterial Blood Gas HCO3 20 meg/L (19-24); iSTAT Arterial Blood Gas pCO2 37 mmHg (35-46); iSTAT Arterial Blood Gas pH 7.35 (7.35-7.45); iSTAT Arterial Blood Gas pO2 131 mmHg (80-95); iSTAT Arterial Blood Gas pO2 C 131; iSTAT Carbon Dioxide 21 mmol/L (24-31); iSTAT FiO2 50 %; iSTAT Hematocrit 34 % (37-47); iSTAT Hemoglobin 11.6 g/dl (12.0-16.0); iSTAT Potassium 3.4 mmol/L (3.3-5.0); iSTAT Site R Brachial; iSTAT Sodium 135 mmol/L (135-144)
[2021-12-06 09:51] LABS: iSTAT Allen Test Pass; iSTAT Art Bld Gas pCO2 Correct 25 mmHg (35-46); iSTAT Art Bld Gas pH Corrected 7.212 (7.35-7.45); iSTAT Arterial Blood Gas HCO3 10 meg/L (19-24); iSTAT Arterial Blood Gas pCO2 25 mmHg (35-46); iSTAT Arterial Blood Gas pH 7.21 (7.35-7.45); iSTAT Arterial Blood Gas pO2 37 mmHg (80-95); iSTAT Arterial Blood Gas pO2 C 37; iSTAT Carbon Dioxide 11 mmol/L (24-31); iSTAT FiO2 50 %; iSTAT Hematocrit 15 % (37-47); iSTAT Hemoglobin 5.1 g/dl (12.0-16.0); iSTAT Potassium < 2.0 mmol/L (3.3-5.0); iSTAT Site R Brachial; iSTAT Sodium 147 mmol/L (135-144)
[2021-12-06] MEDS ORDERED: GADOBUTROL 65ML VIAL IV ONE (12:23)
--- NOTE | 2021-12-06 13:08 | Magnetic Resonance Report ---
MRI OF THE BRAIN WITHOUT AND WITH IV CONTRAST SEIZURE PROTOCOL CLINICAL HISTORY: Seizure. COMPARISON STUDY: Head CT December 04, 2021. TECHNIQUE: Utilizing a 1.5 Elvira magnet and dedicated coil, multiplanar, multiecho imaging of the br ain was performed pre and postcontrast administration. IV administration of 7.5 mL of Gadavist contr ast was uneventful. Thin cut coronal T2 imaging was performed according to seizure protocol. FINDINGS: This exam is mildly compromised by motion artifact although is diagnostic. There are no foc i of restricted diffusion to suggest acute infarct. No acute intracranial hemorrhage, midline shift o r mass effect is present. Ventricular system is unremarkable. Basal cisterns are patent. There are no extra-axial collections. Flow-voids for the major intracranial vessels are present. There is no intr acranial mass or pathologic enhancement. No parenchymal signal abnormality is slight identified. Calv arial signal is within normal limits. IMPRESSION: 1. No acute intracranial findings. 2. No intracranial mass or pathologic enhancement. 3. Exam mildly compromised by motion artifact. ACT 112: Negative or not required by law. Electronically signed by: Travis Hogan M.D. 12/06/2021 1:07 PM
[2021-12-06] MEDS ORDERED: levETIRAcetam 500 MG TAB PO SCH (15:00)
[2021-12-06] MEDS ORDERED: Nursing to Pharmacy Communication SCH (15:30)
[2021-12-06] MEDS ORDERED: INSULIN HUMAN REGULAR SC SCH (16:30)
--- NOTE | 2021-12-06 17:38 | Discharge Summary ---
Date of Service December 06, 2021 Admission HPI Per Admitting Provider Patient intubated and sedated. History obtained through mother at bedside, ER physician and chart review. Sonia Diaz is a 21yo female with history of Type I DM with severe gastroparesis, Anxiety/Depression. 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 She was reportedly in her usual state of health yesterday with exception of complaining of constipation and abd ominal bloating. Also complaining that her blood sugars were higher than usual. Mother was home this evening and heard a "thump" coming from the patient's room. At first she thought nothing of it then she heard a whining/moaning sound. She went to check on her daughter and found her laying face down covered in vomit. She was on the floor in a small space between the bed and dresser. She was displaying seizure like movements with her arms and legs and was unresponsive. Her mother checked patient's blood sugar and found it to be normal in the 90's. EMS was called. Patient was administered Ativan 2mg IV and 2mg IM as well as Versed 10mg IV en route. No obvious seizure activity reported upon arrival to the ER. Patient with sonorous respirations - intubated for airway protection. OGT placed with return of large amount of brown liquid. ER Course: Intubation with mechanical ventilation, Propofol 20mg IV then gtt, NSS at 125ml/hr, Keppra x 1000mg, Ativan 2mg IV, Banana bag Principal Diagnosis Initial Generalized Seizure, Provoked Discharge Exam General: A&Ox3. NAD. Cooperative. HEENT: Atraumatic, normocephalic. Pulm: CTAB A&P. -wheezes, -rales, -rhonchi. Symmetrical chest rise. No increase in work of breathing. No respiratory distress. Cardiac: RRR, -mrg. Radial pulses intact and symmetrical. Abdominal: Nontender, nondistended, soft. BS present. CRANIAL NERVES: II: Pupils equal and reactive, no relative afferent pupillary defect, no VF cuts III, IV, : EOM intact, no gaze preference or deviation, no nystagmus. V: normal sensation in V1, V2, and V3 segments bilaterally VII: no asymmetry, no nasolabial fold flattening VIII: normal hearing to speech IX, X: normal palatal elevation, no uvular deviation XI: 5/5 head turn and 5/5 shoulder shrug bilaterally XII: midline tongue protrusion MOTOR: RUE: 5/5 office manager strength, finger flexion/extension, interosseus LUE: 5/5 office manager strength, finger flexion/extension, interosseus RLE: 5/5 to hip flexion/extension, knee flexion/extension, ankle dorsiflexion/plantarflexion LLE: 5/5 to hip flexion/extension, knee flexion/extension, ankle dorsiflexion/plantarflexion SENSORY: Normal to touch in upper and lower extremities without deficit or asymmetry COORD: Normal finger to nose and heel to reyes, no tremor, no dysmetria Discharge Data Allergies Allergy/AdvReac Type Severity Reaction Status Date / Time [place] Bugs Allergy Severe Swelling Uncoded 12/05/21 00:23 and hives Consultations 12/05/21 00:45 ED Decision to Admit Stat 12/05/21 01:32 Consult Railroad Watchman Routine Ordered Studies 12/04/21 23:21 CT head/brain wo con Stat 12/06/21 09:41 MR brain seizure wo/w con Urgent Hospital Course (1) Seizure: Sonia is a 21-year-old female who presented with tonic-clonic like seizure activity, for seizure, suspected provoked in the setting of alcohol, medical marijuana, Reglan, and antidepressant use To do as outpatient: 1. Discontinue Remeron, patient is not taking but was counseled also not take Reglan in the future 2. Follow-up with gastroparesis specialist 3. Follow-up with neurology 4. Continue Keppra 500 mg twice daily. Likely provoked initial onset seizure, and this may be able to be tapered off at first visit but recommended to continue until neurology follow-up. 5. Avoid alcohol, avoid seizure threshold lowering medications 6. Routine follow-up with PCP 7. Avoid driving until advised is safe to do so at follow-up Seizure, first episode, suspect provoked Witnessed tonic-clonic like seizure activity with vomiting Lactate and CK elevated, lactate improved on recheck Patient recently started on Remeron approximately 10/24/2021 EEG without epileptiform activity MRI seizure protocol with and without contrast with no abnormalities Loaded with Keppra, continue Keppra twice daily Propofol weaned, patient temporarily intubated for airway protection and extubated morning of 2/24 CT head without acute findings Benzo screen positive consistent with administered benzos for seizure, marijuana screen positive consistent with medical marijuana use, ethyl alcohol 10.7 Day of discharge patient is alert, well oriented, answering questions appropriately, and at her normal state. Seen in the presence of her mother and grandmother, comfortable with discharge and outpatient follow-up. No signs of recurrent seizure or epilepsy. (2) Gastroparesis: Gastroparesis, chronic Patient reports long history of refractory gastroparesis now following with [facility] With prior hospitalizations for ileus Difficult to get full medication history from patient due to cognitive status,? Provoked seizure in the setting of alcohol, marijuana, reglan, and antidepressant use Would discontinue Reglan, discontinue Remeron, continue escitalopram. Saw [facility] 10/24. Noted patient had failed Reglan, erythromycin in the past. Anticipated anal manometry, Remeron trial with potential domperidone (not FDA approved, but looking into as a trial due to persistent in severity of symptoms) in the future, Zofran as needed. EGD with Botox/pyloric dilation pending insurance approval. Will require continued follow-up with GI as outpatient, pending additional evaluation for interventions as noted above (3) Type 1 diabetes, uncontrolled, with gastroparesis: Insulin-dependent diabetes mellitus ICU glycemic protocol Glucose 213 on admission, no evidence of hypoglycemia Last A1c 07/17/2021 9.2, patient follows with endocrine as outpatient Home requirements Lantus 20 units every morning, lispro (4) Anxiety: Continue Escitalopram, Remeron discontinued (5) Elevated lactic acid level: Resolved, suspect 2/2 seizure (6) Leukocytosis: Improving Covered with empiric Zosyn for potential of aspiration Pro-Ramana negative Covid, PCR panel negative Follow-up chest x-ray pending, patient 99% on 4 L being weaned following extubation. Discontinue antibiotics if no signs of pneumonia. No additional antibiotics indicated at discharge, no signs of aspiration pneumonia DVT prophylaxis: Lovenox during admission with no signs of DVT Diet: N.p.o. initially, tolerating regular diet at discharge CODE STATUS: Full code Total Time Total Time Spent Total Time Spent (In Minutes): Time spend day of discharge 70 minutes including direct patient care, documentation, review of labs and images, and coordination of care. Discharge Plan Discharge Items Patient Disposition: Home - Self-Care Reason For Visit: SEIZURE Discharge Diagnosis: Provoked seizure, first episode Activity: Per Instructions section Non-emergency contact: Primary Care Provider, Specialist and Neurologist Call non-emergency contact if: you have any medication questions, your symptoms worsen, your pain is not controlled, your pain is worsening, your pain is concerning for you and you have a fever Follow-up/Referrals: Tod Harvey MD [Physician] - Munira Altamirano PA-C [Primary Care Provider] - Diet: Carb Count or DM1 Addtl Attending Provider Instructions: You were seen in the hospital following a seizure. This was your first seizure, and it is likely that this was provoked by medications. Your Remeron has been discontinued, please do not take Remeron at this time. Do not take metoclopramide (Reglan) at this time. You may continue to take your Lexapro. An MRI and CAT scan of your brain did not show any masses or other abnormalities. An EEG, a electrical pattern study of your brain waves, did not show evidence of seizure by the time you are in the hospital. Two blood markers, lactate and CK, were elevated during admission consistent with seizure episode. You have been started on antiseizure medication, Keppra. Being that this was your first seizure and may have been provoked by medications, you may not need to remain on antiseizure medications long-term but it is recommended that you continue this and have outpatient follow-up with neurology. Your case was discussed with neurology prior to discharge. Please continue to take Keppra 500 mg by mouth twice daily. Please call your GI specialist and gastroparesis specialist to discuss the medication changes noted, that you had a seizure while on Remeron, and schedule a follow-up appointment. You should have a follow-up with your primary care physician for reevaluation within 2 weeks. Please call their office to schedule an appointment. If you develop any new or worsening symptoms including fever, chills, sweats, chest pain, chest pressure, difficulty breathing, uncontrolled nausea/vomiting, rash, wheezing, passing out or nearly passing out, bleeding, black/bloody bowel movements, or other new or concerning symptoms please call your primary care physician a or call 911 for re-evaluation in the emergency department if you are very concerned. Pending Studies at Discharge: No Stand-Alone Forms: My [facility], Smoking Cessation Medications and DC Order Prescriptions: New levetiracetam [Keppra] 500 mg Tablet 500 mg PO Q12H 14 Days Qty: 28 RF: 0 Continued (DME) Dexcom G6 Transmitter Device See Rx Instructions .Route Qty: 1 RF: 3 levonorgestrel-ethinyl estrad [Lutera (28)] 0.1-20 mg-mcg tablet 1 tab PO QAM Qty: 84 RF: 0 ondansetron 4 mg tablet,disintegrating 4 mg PO TID PRN (Reason: NAUSEA/VOMITING) Qty: 90 RF: 3 escitalopram oxalate [Lexapro] 20 mg tablet 20 mg PO DAILY Qty: 30 RF: 3 Linzess 145 mcg capsule 145 mcg PO DAILY Qty: 30 RF: 2 (DME) Dexcom G6 Coach Operator Misc See Rx Instructions .Route Qty: 1 RF: 0 (DME) pen needle, diabetic [BD Ultra-Fine Short Pen Needle] 31 gauge x 5/16" needle See Rx Instructions .Route Qty: 400 RF: 3 (DME) Ketostix Strip See Rx Instructions miscellaneous .MEDSUPPLY Qty: 50 RF: 5 (DME) OneTouch Verio test strips Strip See Rx Instructions .Route RF: 0 (DME) lancets [OneTouch Delica Lancets] 33 gauge misc See Rx Instructions .Route RF: 0 (DME) pen needle, diabetic [BD Ultra-Fine Short Pen Needle] 31 gauge x 5/16" needle See Rx Instructions .Route RF: 0 Baqsimi 3 mg/actuation spray,non-aerosol 3 mg intranasal ONCE PRN (Reason: hypoglycemia) Qty: 2 RF: 5 fluticasone propionate 50 mcg/actuation spray,suspension 2 spray INTRANASAL DAILY PRN (Reason: Congestion) RF: 0 cetirizine 10 mg Tablet 10 mg PO QAM 30 Days Qty: 30 RF: 3 Medical Marijuana 1 dose inhalation UD PRN (Reason: Anxiety) RF: 0 magnesium 250 mg tablet 250 mg PO DAILY Qty: 30 RF: 0 Lantus Solostar U-100 Insulin 100 unit/mL (3 mL) insulin pen 20 unit subcut QAM Qty: 15 RF: 3 insulin lispro [Humalog KwikPen Insulin] 100 unit/mL insulin pen 0 unit SUBCUT DIRECTED RF: 0 Discontinued metoclopramide HCl 10 mg tablet 10 mg PO DAILYBB RF: 0 mirtazapine 7.5 mg tablet 7.5 mg PO HS RF: 0 Discharge Orders: Discharge Order (Routine); Ordered 12/06/21 Ordered By: Marvin Hoffman/Other Patient Handouts: Managing Type 1 Diabetes Admission Data Admit Date/Time: 12/05/21 00:49 Attending Provider: Marvin Robison Admit Provider: Lissa Lima Primary Care Provider: Munira Altamirano Other Providers: Lissa Lima ; Stan Kumar Coding Level of Care Code D/C DAY MANAGEMENT >30 MINS Diagnoses Seizure R56.9 Gastroparesis K31.84 Type 1 diabetes, uncontrolled, with gastroparesis E10.43; K31.84; E10.65 Anxiety F41.9 Elevated lactic acid level R79.89 Leukocytosis D72.829
[2021-12-06] MEDS ORDERED: SUCCINYLCHOLINE CHLORIDE 20 MG/ML 10 ML VIAL IV ONE (18:22)
[2021-12-06] MEDS ORDERED: ETOMIDATE 2 MG/ML 20 ML VIAL IV ONE (18:22)
[2021-12-07 06:12] LABS: 7-Aminoclonaz, Confirm NEGATIVE ng/mL (<25); Hydro-Alp Ur, GC/MS NEGATIVE ng/mL (<25); Hydroxyethylflurazepam, Conf NEGATIVE ng/mL (<50); Hydroxymidazolam Ur, GC/MS 215 ng/mL (<50); Hydroxytriazolam NEGATIVE ng/mL (<50); Lorazepam, Ur GC/MS NEGATIVE ng/mL (<50); Marijuana Quant, GCMS Urine 168 ng/mL (<5); Nordiazepam, Confirm NEGATIVE ng/mL (<50); Oxazepam Ur, GC/MS NEGATIVE ng/mL (<50); Temazepam, Confirm NEGATIVE ng/mL (<50)
[2021-12-07] MEDS ORDERED: PANTOprazole 40 MG TAB PO SCH (06:30)
== END 2021-12-06 18:23 | disposition home or self-care (01) | DRG 101 ==
LOC: ED 23:14 → SUATTDRO 12-05 00:49 → 1E 12-05 00:49

== ENCOUNTER 2023-02-06 14:35 | Inpatient (IN) ==
[2023-02-06] MEDS ORDERED: ACETAMINOPHEN 1,000 MG/100 ML VIAL IV STA (15:29)
[2023-02-06] MEDS ORDERED: SODIUM CHLORIDE 0.9% 1000ML 1,000 ML IV STA (15:29)
[2023-02-06] MEDS ORDERED: ONDANSETRON INJ 2 MG/ML 2 ML VIAL IV STA (15:29)
[2023-02-06] MEDS ORDERED: DICYCLOMINE HCL 10 MG/ML 2 ML AMP/VIAL IM ONE (15:29)
--- NOTE | 2023-02-06 15:29 | Emergency Department Note ---
History of Present Illness General Chief complaint: GI Assessment Stated complaint: GASTROPARESIS FLARE UP Time Seen by Provider: 02/06/23 14:58 History of Present Illness Maximum Pain Intensity: 9 22-year-old female with past medical history significant for gastroparesis and type 1 diabetes who presents to emergency department for evaluation of diffuse abdominal pain. She reports "nonstop vomiting" since yesterday as well she started with diarrhea this morning. She notes dark specks in her vomitus, nonbilious. She describes her abdominal pain as a constant sharp stabbing pain. There are no alleviating or exacerbating factors. She denies changes in her diet or new foods. No sick contacts. She is on Linzess as well as dicyclomine for her gastroparesis. She has had similar episodes to this in the past but states this feels worse. No changes in her medications. She denies fever/chills, chest pain, SOB, dizziness/lightheadedness, hematochezia, melena, urinary symptoms. LMP 3 weeks ago and she denies chance of . She has not taken anything for her symptoms. Home Medications Medication Instructions Recorded Confirmed Type fluticasone propionate 50 2 spray intranasal DAILY PRN 04/26/21 02/06/23 History mcg/actuation nasal Congestion spray,suspension blood-glucose meter,continuous #1 ea 05/23/21 01/14/23 Rx (Dexcom G6 Subeditor) magnesium 250 mg tablet 250 mg PO DAILY #30 tabs 07/17/21 02/06/23 Rx blood sugar diagnostic (OneTouch 08/01/21 01/14/23 History Verio test strips) lancets 33 gauge (OneTouch Delica 08/01/21 01/14/23 History Lancets) pen needle, diabetic 31 gauge x 08/01/21 01/14/23 History 5/16" (BD Ultra-Fine Short Pen Needle) pen needle, diabetic 31 gauge x #400 ea 08/15/21 01/14/23 Rx 5/16" (BD Ultra-Fine Short Pen Needle) ondansetron 4 mg disintegrating 4 mg PO TID PRN NAUSEA/VOMITING 10/15/2102/06 Rx tablet #90 tabs insulin glargine 100 unit/mL (3 10 unit (0.1 mL) subcut QAM #15 mL 12/11/21 02/06/23 Rx mL) subcutaneous pen (Lantus Solostar U-100 Insulin) cholecalciferol (vitamin D3) 625 25,000 unit PO WK 02/26/22 02/06/23 History mcg (25,000 unit) capsule famotidine 20 mg tablet 20 mg PO BID #60 tabs 02/26/22 02/06/23 Rx sucralfate 100 mg/mL oral 10 ml PO QID #420 mL 02/26/22 02/06/23 Rx suspension (Carafate) levonorgestrel-ethinyl estradiol 1 tab PO DAILY #84 tabs 03/25/22 02/06/23 Rx 0.1 mg-20 mcg tablet (Sronyx) glucagon 3 mg/actuation nasal 3 mg intranasal ONCE PRN 03/26/22 02/06/23 Rx spray (Baqsimi) hypoglycemia #2 ea duloxetine 60 mg capsule,delayed 60 mg PO DAILY #90 caps 05/14/22 02/06/23 Rx release prochlorperazine 25 mg rectal 25 mg OR Q12H PRN nausea and 07/24/22 02/06/23 Rx suppository (Compazine) vomiting #12 ea buspirone 10 mg tablet 10 mg PO BID #180 tabs 08/04/22 02/06/23 Rx aluminum-mag hydroxide-simethicone 10 ml PO DIRECTED PRN Gi Upset 08/14/22 02/06/23 History 200 mg-200 mg-20 mg/5 mL oral susp dicyclomine 20 mg tablet 20 mg PO QID #40 tabs 10/15/22 02/06/23 Rx acetone (urine) test (Ketostix #50 ea 10/19/22 01/14/23 Rx strips) mupirocin 2 % topical ointment 1 applic topical BID #22 grams 10/28/22 02/06/23 Rx Dexcom G6 Sensor (blood-glucose #9 ea 12/19/22 01/14/23 Rx sensor) Dexcom G6 Transmitter #1 ea 12/19/22 01/14/23 Rx (blood-glucose transmitter) Novolog FlexPen U-100 Insulin 100 16 unit (0.16 mL) subcut TID #15 mL 01/06/23 02/06/23 Rx unit/mL (3 mL) subcutaneous (insulin aspart U-100) linaclotide 290 mcg capsule 290 mcg PO DAILY IBS-C #30 caps 01/14/23 02/06/23 Rx (Linzess) Allergies Allergy/AdvReac Type Severity Reaction Status Date / Time Lady Vance Allergy Severe Swelling Uncoded 02/06/23 17:18 and hives Past Med/Surg History Medical History Abdominal pain Anxiety Anxiety and depression Diabetes mellitus type 1 Diabetic retinopathy associated with type 1 diabetes mellitus Frequent loose stools Gastritis Gastroparesis Headache Hx of diabetic retinopathy Hypoglycemia unawareness associated with type 1 diabetes mellitus Hypokalemia IBS (irritable bowel syndrome) Insomnia Palpitations Seizure Tick bite Surgical History H/O eye surgery LASER SURGERY RT/LEFT History of colonoscopy History of ear surgery LEFT EAR S/P INFECTION FROM EARING History of esophagogastroduodenoscopy (EGD) History of myringotomy History of tonsillectomy S/P laparoscopy 04/2022 [place] teeth removed Family History Mother Family history of diabetes mellitus Grandmother (Maternal) Family history of diabetes mellitus Other Breast cancer Myocardial infarction No family history of adverse response to anesthesia Ovarian cancer Prostate cancer Denies family history of Colorectal cancer Social History Smoking Status: Current every day smoker Tobacco Type: E-cigarettes / Vaping Second Hand Exposure: No; Do You Dip or Chew Tobacco: No; Hx Alcohol Use: Yes Alcohol type: beer, wine and hard liquor Hx Substance Use: Yes Prescribed Medications: Marijuana Last Used Substance Other:: ONLY RX IVA Preferred Language: [place] Leone[place] Crew 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 Required: No Beliefs That Will Affect Care: None marital status: Single Current Living Situation: Family Current Living Situation Comment: Lives with mother and mother's Feels Safe at Home: Yes Dental Care, Regularly: Yes Physical Activity Frequency: 5-6 Times per Week Assistive Devices: Oxygen - Continuous Physical Exam Vital Signs Vital Signs - 24 hr 02/06/23 14:50 02/06/23 15:46 02/06/23 15:49 Temperature 36.1 C L Temperature Source Temporal Artery Scan Pulse Rate 97 H 94 H Respiratory Rate 16 Respiratory Effort / Characteristics Non-Labored Blood Pressure 171/102 H Blood Pressure Mean 125 Pulse Oximetry 100 99 Oxygen Delivery Method Room Air Room Air Sepsis Recent Fever Within 48 Hours No Sepsis New/Unexplained Change in Mental Status N/A Sepsis Action Taken by Nursing No Action Required Constitutional: alert and oriented x3. Mild distress secondary to pain HEENT: normocephalic, atraumatic. normal conjunctiva.PERRLA. EOM's grossly int act. Mucus membranes moist Neck: neck is supple, nontender. No cervical lymphadenopathy Respiratory: lungs are clear to auscultation without wheezes, rhonchi, or rales bilaterally. equal chest rise. normal respiratory effort, no accessory muscle use. Cardiovascular: normal heart sounds without murmur. regular rate and rhythm. GI: abdomen is soft, nondistended. Diffuse tenderness. No palpable masses. No rebound tenderness or guarding. No CVA tenderness Peripheral vascular: extremities warm and well perfused Psych:appropriate mood and affect. Course Administered Medications Discontinued Medications Dicyclomine HCl (Dicyclomine Hcl 10 Mg/Ml 2 Ml Amp/Vial) 20 mg IM NOW ONE Stop: 02/06/23 15:30 Last Admin: 02/06/23 15:42 Dose: 20 mg Documented By: JAYDEN Sodium Chloride (Nss 1000ml) 1,000 mls @ 999 mls/hr IV .Q1H1M STA Stop: 02/06/23 16:29 Last Infusion: 02/06/23 16:54 Dose: 0 mls/hr Documented By: Admin: 02/06/23 15:38 Dose: 999 mls/hr Documented By: JAYDEN Acetaminophen (Ofirmev) 1,000 mg in 100 mls @ 400 mls/hr IV NOW STA Stop: 02/06/23 15:43 Last Infusion: 02/06/23 16:54 Dose: 0 mls/hr Documented By: Admin: 02/06/23 15:41 Dose: 400 mls/hr Documented By: JAYDEN Pantoprazole Sodium 40 mg/ (Syringe) 10 mls @ 5 mls/min IV NOW ONE Stop: 02/06/23 15:33 Last Admin: 02/06/23 16:54 Dose: 5 mls/min Documented By: TARIK Potassium Chloride (K Vishnu / Wtr) 10 meq in 100 mls @ 100 mls/hr IV Q1H MARIELLA Stop: 02/06/23 20:29 Last Admin: 02/06/23 19:47 Dose: 100 mls/hr Documented By: Infusion: 02/06/23 19:47 Dose: 100 mls/hr Documented By: Admin: 02/06/23 18:49 Dose: 100 mls/hr Documented By: JAYDEN Ioversol (Optiray 320 100ml) 91 ml IV ONCE ONE Stop: 02/06/23 16:25 Last Admin: 02/06/23 16:24 Dose: 91 ml Documented By: JAMES Ondansetron HCl (Ondansetron Inj 2 Mg/Ml 2 Ml Vial) 4 mg IV NOW STA Stop: 02/06/23 15:30 Last Admin: 02/06/23 15:39 Dose: 4 mg Documented By: JAYDEN Medical Decision Making Differential Diagnosis Gastroparesis, viral gastroenteritis, foodborne illness, appendicitis, gallbladder disease, acute cholecystitis, pancreatitis, PUD, SBO, volvulus, UTI, pyelonephritis, IBD as well as other pathologies Laboratory Data Attestation: I reviewed the patient's lab results. 02/06/23 15:15 02/06/23 15:15 Lab Results 02/06/23 02/06/23 02/06/23 Range/Units 15:15 15:15 15:15 WBC 16.08 H (4.8-10.8) K/ul RBC 4.66 (4.20-5.40) M/uL Hgb 13.5 (12.0-16.0) g/dl Hct 38.5 (37.0-47.0) % MCV 82.6 (80.0-100.0) fL MCH 29.0 (25.0-34.0) pg MCHC 35.1 (32.0-36.0) g/dL RDW Std Deviation 37.6 (36.4-46.3) fL RDW Coeff of Mil 12.4 (11.5-14.5) % Plt Count 235 (130-400) K/uL MPV 12.1 (9.4-12.4) fL Immature Gran % (Auto) 0.4 % Neut % (Auto) 89.8 % Lymph % (Auto) 6.9 % Colbert % (Auto) 2.7 % Eos % (Auto) 0.0 % Baso % (Auto) 0.2 % Neut # (Auto) 14.43 H (1.40-6.50) K/uL Lymph # (Auto) 1.11 L (1.2-3.4) K/uL Colbert # (Auto) 0.44 (0.11-0.59) K/uL Eos # (Auto) 0.00 (0-0.50) K/uL Baso # (Auto) 0.03 (0-0.2) K/uL Immature Gran # (Auto) 0.07 (0.01-0.20) K/uL PT 11.5 (9.0-12.0) Seconds INR 1.1 (0.9-1.1) APTT 32.5 H (21.0-31.0) Seconds PTT Ratio 1.2 Sodium 124 L (136-145) mmol/L Potassium 3.3 L (3.5-5.1) mmol/L Chloride 87 L (98-107) mmol/L Carbon Dioxide 25 (21-32) mmol/L Anion Gap 12 H (3-11) BUN 11 (6-23) mg/dl Creatinine 0.49 L (0.6-1.2) mg/dl Est Cr Clr Drug Dosing 209.3 ml/min Est GFR ( Amer) > 150.0 ml/min Est GFR (Non-Af Amer) 137.3 ml/min BUN/Creatinine Ratio 22.4 H (10-20) Glucose 212 H (70-99(Fasting)) mg/dl Osmolality (280-300) mOsm/kg Calcium 8.7 (8.6-10.3) mg/dl Total Bilirubin 0.9 (0.2-1.0) mg/dl AST 23 (13-39) U/L ALT 19 (7-52) U/L Alkaline Phosphatase 62 (34-104) U/L Total Protein 7.6 (6.0-8.3) gm/dl Albumin 4.4 (3.4-5.0) gm/dl Globulin 3.2 (2.5-4.0) gm/dl Albumin/Globulin Ratio 1.4 (0.9-2) Lipase 16 (11-82) U/L Urine Color Urine Appearance (Clear) Urine pH (4.5-7.5) Ur Specific [place] (1.000-1.030) Urine Protein (Negative) Urine Glucose (UA) (Negative) Urine Ketones (Negative) Urine Blood (Negative) Urine Nitrite (Negative) Urine Bilirubin (Negative) Urine Urobilinogen (Negative) Ur Leukocyte Esterase (Negative) Urine WBC (Auto) (0-5) /hpf Urine RBC (Auto) (0-4) /hpf U Hyaline Cast (Auto) (0-5) /lpf U Epithel Cells (Auto) (0-5) /lpf Urine Bacteria (Auto) (Negative) Urine Osmolality (500-800) mOsm/kg SARS-CoV-2, RNA, NAAT (NEGATIVE) 02/06/23 02/06/23 02/06/23 Range/Units 15:15 17:03 17:03 WBC (4.8-10.8) K/ul RBC (4.20-5.40) M/uL Hgb (12.0-16.0) g/dl Hct (37.0-47.0) % MCV (80.0-100.0) fL MCH (25.0-34.0) pg MCHC (32.0-36.0) g/dL RDW Std Deviation (36.4-46.3) fL RDW Coeff of Mil (11.5-14.5) % Plt Count (130-400) K/uL MPV (9.4-12.4) fL Immature Gran % (Auto) % Neut % (Auto) % Lymph % (Auto) % Colbert % (Auto) % Eos % (Auto) % Baso % (Auto) % Neut # (Auto) (1.40-6.50) K/uL Lymph # (Auto) (1.2-3.4) K/uL [place]bert # (Auto) (0.11-0.59) K/uL Eos # (Auto) (0-0.50) K/uL Baso # (Auto) (0-0.2) K/uL Immature Gran # (Auto) (0.01-0.20) K/uL PT (9.0-12.0) Seconds INR (0.9-1.1) APTT (21.0-31.0) Seconds PTT Ratio Sodium (136-145) mmol/L Potassium (3.5-5.1) mmol/L Chloride (98-107) mmol/L Carbon Dioxide (21-32) mmol/L Anion Gap (3-11) BUN (6-23) mg/dl Creatinine (0.6-1.2) mg/dl Est Cr Clr Drug Dosing ml/min Est GFR ( Amer) ml/min Est GFR (Non-Af Amer) ml/min BUN/Creatinine Ratio (10-20) Glucose (70-99(Fasting)) mg/dl Osmolality 266 L (280-300) mOsm/kg Calcium (8.6-10.3) mg/dl Total Bilirubin (0.2-1.0) mg/dl AST (13-39) U/L ALT (7-52) U/L Alkaline Phosphatase (34-104) U/L Total Protein (6.0-8.3) gm/dl Albumin (3.4-5.0) gm/dl Globulin (2.5-4.0) gm/dl Albumin/Globulin Ratio (0.9-2) Lipase (11-82) U/L Urine Color Yellow Urine Appearance Clear (Clear) Urine pH 5.5 (4.5-7.5) Ur Specific [place] > 1.045 H (1.000-1.030) Urine Protein Negative (Negative) Urine Glucose (UA) Trace H (Negative) Urine Ketones 3+ H (Negative) Urine Blood 1+ H (Negative) Urine Nitrite Negative (Negative) Urine Bilirubin Negative (Negative) Urine Urobilinogen Negative (Negative) Ur Leukocyte Esterase Negative (Negative) Urine WBC (Auto) 1-5 (0-5) /hpf Urine RBC (Auto) 5-10 H (0-4) /hpf U Hyaline Cast (Auto) 1-5 (0-5) /lpf U Epithel Cells (Auto) >30 H (0-5) /lpf Urine Bacteria (Auto) 1+ H (Negative) Urine Osmolality 660 (500-800) mOsm/kg SARS-CoV-2, RNA, NAAT (NEGATIVE) 02/06/23 Range/Units 17:03 WBC (4.8-10.8) K/ul RBC (4.20-5.40) M/uL Hgb (12.0-16.0) g/dl Hct (37.0-47.0) % MCV (80.0-100.0) fL MCH (25.0-34.0) pg MCHC (32.0-36.0) g/dL RDW Std Deviation (36.4-46.3) fL RDW Coeff of Mil (11.5-14.5) % Plt Count (130-400) K/uL MPV (9.4-12.4) fL Immature Gran % (Auto) % Neut % (Auto) % Lymph % (Auto) % [place]bert % (Auto) % Eos % (Auto) % Baso % (Auto) % Neut # (Auto) (1.40-6.50) K/uL Lymph # (Auto) (1.2-3.4) K/uL [place] # (Auto) (0.11-0.59) K/uL Eos # (Auto) (0-0.50) K/uL Baso # (Auto) (0-0.2) K/uL Immature Gran # (Auto) (0.01-0.20) K/uL PT (9.0-12.0) Seconds INR (0.9-1.1) APTT (21.0-31.0) Seconds PTT Ratio Sodium (136-145) mmol/L Potassium (3.5-5.1) mmol/L Chloride (98-107) mmol/L Carbon Dioxide (21-32) mmol/L Anion Gap (3-11) BUN (6-23) mg/dl Creatinine (0.6-1.2) mg/dl Est Cr Clr Drug Dosing ml/min Est GFR ( Amer) ml/min Est GFR (Non-Af Amer) ml/min BUN/Creatinine Ratio (10-20) Glucose (70-99(Fasting)) mg/dl Osmolality (280-300) mOsm/kg Calcium (8.6-10.3) mg/dl Total Bilirubin (0.2-1.0) mg/dl AST (13-39) U/L ALT (7-52) U/L Alkaline Phosphatase (34-104) U/L Total Protein (6.0-8.3) gm/dl Albumin (3.4-5.0) gm/dl Globulin (2.5-4.0) gm/dl Albumin/Globulin Ratio (0.9-2) Lipase (11-82) U/L Urine Color Urine Appearance (Clear) Urine pH (4.5-7.5) Ur Specific [place] (1.000-1.030) Urine Protein (Negative) Urine Glucose (UA) (Negative) Urine Ketones (Negative) Urine Blood (Negative) Urine Nitrite (Negative) Urine Bilirubin (Negative) Urine Urobilinogen (Negative) Ur Leukocyte Esterase (Negative) Urine WBC (Auto) (0-5) /hpf Urine RBC (Auto) (0-4) /hpf U Hyaline Cast (Auto) (0-5) /lpf U Epithel Cells (Auto) (0-5) /lpf Urine Bacteria (Auto) (Negative) Urine Osmolality (500-800) mOsm/kg SARS-CoV-2, RNA, NAAT NEGATIVE (NEGATIVE) Imaging Data Radiologist's Impression: Abdomen/Pelvis CT 02/06/23 15:35 CT OF THE ABDOMEN AND PELVIS WITH CONTRAST CLINICAL HISTORY: Diffuse abdominal pain. COMPARISON STUDY: CT of the abdomen and pelvis August 15, 2022. TECHNIQUE: Following IV administration of 91 mL of Optiray, axial images of the abdomen and pelvis were obtained from the lung bases to the proximal femurs. Images were reviewed in the axial, sagittal, and coronal planes. IV contrast was administered without complication. Automated exposure control was utilized for the study. A dose lowering technique was utilized adhering to the principles of ALARA. CT DOSE: 513.23 mGy.cm FINDINGS: Lung bases are unremarkable. Circumferential wall thickening of the distal esophagus is again noted. This has slightly increased since prior exam. No pneumatosis, free air or portal venous gas is present. Liver, spleen, adrenal glands, kidneys and pancreas are normal. There is no biliary or pancreatic ductal dilatation. There is no peripancreatic or pericholecystic infiltration. There is no hydronephrosis. The appendix is normal. The caliber and wall thickness of small and large bowel are normal. There is no evidence for a bowel obstruction. There is no lymphadenopathy. No acute fractures are present. No suspicious lesions are identified within the visualized skeletal structures. IMPRESSION: 1. Increase in circumferential wall thickening of the distal esophagus. This may reflect esophagitis. 2. No acute process within the abdomen or pelvis. Normal appendix. No bowel wall thickening. No bowel obstruction. ACT 112: Negative or not required by law. Electronically signed by: Travis Hogan M.D. 02/06/2023 4:35 PM MDM Narrative 22-year-old female who presents emergency department for diffuse abdominal pain with associated vomiting and diarrhea. Review of pertinent visits and past medical history performed. Vital signs in ED demonstrate hypertensive and mild tachycardia. She is afebrile. IV access was established and labs were obtained. CBC demonstrates leukocytosis at 16 with left shift. No anemia. CMP with significantly low sodium at 124, potassium 3.3, chloride 87. Glucose 212. Renal function within normal limits. LFTs and lipase unremarkable. A CT abdomen/pelvis was obtained for diffuse abdominal tenderness. This was p ersonally reviewed as well as interpreted by radiology and is relatively unremarkable. There is wall thickening of the distal esophagus consistent with esophagitis. Clinically, patient is nontoxic-appearing in mild distress secondary to pain. Lungs CTA. She has diffuse tenderness throughout her abdomen. No rebound tenderness or guarding. No CVA tenderness. She was treated with IV Zofran, B entyl, Tylenol for pain and nausea. IV Protonix was provided for concerns for hematemesis observed in ED. She was additionally given 1 L of fluids. Upon reevaluation, patient reports no major improvement in her symptoms. She was updated on all exam findings and test results. Given acute hyponatremia, I am recommending admission to hospital for further work up and management. Patient verbalized understanding and is agreeable to this plan. Her case was discussed with hospitalist, Dr. Robison, who reviewed patient case and graciously excepted her to his service for further management. Patient was admitted to the hospital in stable condition. Case discussed with attending, Dr. Lynn, who agrees with work-up and treatment plan. Impression & Plan Acute hyponatremia, Diffuse abdominal pain, Nausea, vomiting and diarrhea Discharge Plan Visit Data Chief Complaint: GI Assessment Stated Complaint: GASTROPARESIS FLARE UP ED Provider: Anuel Lynn ED Midlevel Provider: Ros Tovar Discharge Problem: Acute hyponatremia, Diffuse abdominal pain, Nausea, vomiting and diarrhea Patient Disposition: Admitted As Inpatient Forms Stand Alone Forms: [facility] Prescriptions Prescriptions: No Action ondansetron 4 mg tablet,disintegrating 4 mg PO TID PRN (Reason: NAUSEA/VOMITING) Qty: 90 3RF levonorgestrel-ethinyl estrad [Sronyx] 0.1-20 mg-mcg tablet 1 tab PO DAILY Qty: 84 3RF Baqsimi 3 mg/actuation spray,non-aerosol 3 mg intranasal ONCE PRN (Reason: hypoglycemia) Qty: 2 5RF prochlorperazine [Compazine] 25 mg suppository 25 mg OR Q12H PRN (Reason: nausea and vomiting) Qty: 12 3RF buspirone 10 mg tablet 10 mg PO BID Qty: 180 3RF (DME) Ketostix Strip See Rx Instructions miscellaneous .MEDSUPPLY Qty: 50 5RF Rx Instructions: Check if blood sugars are high (DME) Dexcom G6 Sensor Device See Rx Instructions .Route Qty: 9 3RF Rx Instructions: Change every 10 days (DME) Dexcom G6 Transmitter Device See Rx Instructions .Route Qty: 1 3RF Rx Instructions: Change every 90 days insulin aspart U-100 [Novolog FlexPen U-100 Insulin] 100 unit/mL (3 mL) insulin pen 16 unit subcut TID MDD 48 units Qty: 15 5RF Rx Instructions: To be used as a scale to bring down a high blood sugar (DME) Dexcom G6 Subeditor Misc See Rx Instructions .Route Qty: 1 0RF Rx Instructions: Use As directed (DME) pen needle, diabetic [BD Ultra-Fine Short Pen Needle] 31 gauge x 5/16" needle See Rx Instructions .Route Qty: 400 3RF Rx Instructions: Change and use new pen needle 4x a day dicyclomine 20 mg tablet 20 mg PO QID Qty: 40 1RF (DME) OneTouch Verio test strips Strip See Rx Instructions .Route Rx Instructions: Test once daily PRN (DME) lancets [OneTouch Delica Lancets] 33 gauge misc See Rx Instructions .Route Rx Instructions: Test once daily PRN (DME) pen needle, diabetic [BD Ultra-Fine Short Pen Needle] 31 gauge x 5/16" needle See Rx Instructions .Route Rx Instructions: Inject insulin four times daily Lantus Solostar U-100 Insulin 100 unit/mL (3 mL) insulin pen 10 unit subcut QAM Qty: 15 3RF duloxetine 60 mg capsule,delayed release(DR/EC) 60 mg PO DAILY Qty: 90 3RF mupirocin 2 % ointment 1 applic topical BID Qty: 22 1RF Rx Instructions: Apply BID to the right back until healed. Apply once daily to the biopsy site on the left armpit to prevent infection. Linzess 290 mcg capsule 290 mcg PO DAILY Qty: 30 11RF fluticasone propionate 50 mcg/actuation spray,suspension 2 spray INTRANASAL DAILY PRN (Reason: Congestion) cholecalciferol (vitamin D3) 625 mcg (25,000 unit) capsule 25,000 unit PO WK Rx Instructions: TAKES ON THURSDAYS sucralfate [Carafate] 100 mg/mL suspension 10 ml PO QID Qty: 420 1RF Rx Instructions: swish in mouth and swallow; use after food/drink: May substitute tablets as a slurry. famotidine 20 mg tablet 20 mg PO BID Qty: 60 0RF magnesium 250 mg tablet 250 mg PO DAILY Qty: 30 0RF alum-mag hydroxide-simeth [Mylanta] 200-200-20 mg/5 mL Suspension 10 ml PO DIRECTED PRN (Reason: Gi Upset) Referrals Referrals: Iraida Mayorga MD [Primary Care Provider] -
[2023-02-06] MEDS ORDERED: PANTOprazole 40 MG in SYRINGE 0 ML IV ONE (15:32)
[2023-02-06 15:50] LABS: Basophils # (auto) 0.03 K/uL (0-0.2); Basophils % (auto) 0.2 %; Hematocrit (blood only) 38.5 % (37.0-47.0); Hemoglobin 13.5 g/dl (12.0-16.0); Immature Granulocytes # (auto) 0.07 K/uL (0.01-0.20); Immature Granulocytes % (auto) 0.4 %; Lymphocytes # (auto) 1.11 K/uL (1.2-3.4); Lymphocytes % (auto) 6.9 %; Mean Corpuscular Hgb Conc 35.1 g/dL (32.0-36.0); Mean Corpuscular Volume 82.6 fL (80.0-100.0); Mean Platelet Volume 12.1 fL (9.4-12.4); Monocytes # (auto) 0.44 K/uL (0.11-0.59); Monocytes % (auto) 2.7 %; Neutrophils # (auto) 14.43 K/uL (1.40-6.50); Neutrophils % (auto) 89.8 %; Platelet Count 235 K/uL (130-400); RDW Coefficient of Variation 12.4 % (11.5-14.5); RDW Standard Deviation 37.6 fL (36.4-46.3); Red Blood Count 4.66 M/uL (4.20-5.40); White Blood Count 16.08 K/ul (4.8-10.8)
[2023-02-06 16:05] LABS: Alanine Aminotransferase 19 U/L (7-52); Albumin Globulin Ratio 1.4 (0.9-2); Albumin Level 4.4 gm/dl (3.4-5.0); Alkaline Phosphatase 62 U/L (34-104); Anion Gap 12 (3-11); Aspartate Aminotransferase 23 U/L (13-39); BUN Creatinine Ratio 22.4 (10-20); Bilirubin,Total 0.9 mg/dl (0.2-1.0); Blood Urea Nitrogen 11 mg/dl (6-23); Calcium 8.7 mg/dl (8.6-10.3); Carbon Dioxide 25 mmol/L (21-32); Chloride 87 mmol/L (98-107); Creatinine Clr Calc Pharmacy 209.3 ml/min; Est GFR (African American) > 150.0 ml/min; Est GFR (Non-African American) 137.3 ml/min; Globulin 3.2 gm/dl (2.5-4.0); Glucose 212 mg/dl (70-99(Fasting)); Lipase 16 U/L (11-82); Potassium 3.3 mmol/L (3.5-5.1); Sodium 124 mmol/L (136-145); Total Protein 7.6 gm/dl (6.0-8.3)
[2023-02-06] MEDS ORDERED: OPTIRAY 320 100ml IV ONE (16:24)
[2023-02-06 16:27] LABS: INR 1.1 (0.9-1.1); Partial Thromboplastin Ratio 1.2; Partial Thromboplastin Time 32.5 Seconds (21.0-31.0); Prothrombin Time 11.5 Seconds (9.0-12.0)
--- NOTE | 2023-02-06 16:36 | CT Scan Report ---
CT OF THE ABDOMEN AND PELVIS WITH CONTRAST CLINICAL HISTORY: Diffuse abdominal pain. COMPARISON STUDY: CT of the abdomen and pelvis August 15, 2022. TECHNIQUE: Following IV administration of 91 mL of Optiray, axial images of the abdomen and pelvis we re obtained from the lung bases to the proximal femurs. Images were reviewed in the axial, sagittal, and coronal planes. IV contrast was administered without complication. Automated exposure control wa s utilized for the study. A dose lowering technique was utilized adhering to the principles of ALARA . CT DOSE: 513.23 mGy.cm FINDINGS: Lung bases are unremarkable. Circumferential wall thickening of the distal esophagus is aga in noted. This has slightly increased since prior exam. No pneumatosis, free air or portal venous gas is present. Liver, spleen, adrenal glands, kidneys and pancreas are normal. There is no biliary or p ancreatic ductal dilatation. There is no peripancreatic or pericholecystic infiltration. There is no hydronephrosis. The appendix is normal. The caliber and wall thickness of small and large bowel are n ormal. There is no evidence for a bowel obstruction. There is no lymphadenopathy. No acute fractures are present. No suspicious lesions are identified within the visualized skeletal structures. IMPRESSION: 1. Increase in circumferential wall thickening of the distal esophagus. This may reflect esophagitis. 2. No acute process within the abdomen or pelvis. Normal appendix. No bowel wall thickening. No bowel obstruction. ACT 112: Negative or not required by law. Electronically signed by: Travis Hogan M.D. 02/06/2023 4:35 PM
[2023-02-06 17:33] LABS: Appearance Urine Clear (Clear); Bacteria Urine Automated 1+ (Negative); Bilirubin Urine Negative (Negative); Blood Urine 1+ (Negative); Color Urine Yellow; Epithelial Cell Urine Auto >30 /lpf (0-5); Glucose Urine UA Trace (Negative); Ketones Urine 3+ (Negative); Leukocyte Esterase Urine Negative (Negative); Nitrite Urine Negative (Negative); Protein Urine Negative (Negative); Specific Gravity Urine > 1.045 (1.000-1.030); Urobilinogen Urine Negative (Negative); pH Urine 5.5 (4.5-7.5)
--- NOTE | 2023-02-06 17:56 | History & Physical Report ---
Date of Service February 06, 2023 Assessment & Plan (1) Hyponatremia: Plan: Hyponatremia, suspect acute although chronic baseline unclear, was last normal October 2022 With 3 days of poor p.o. intake, nausea/vomiting No history of SIADH Urine sodium, urine osmolality, serum osmolality pending Based on history suspect volume depletion, patient has received 1 L of fluids. Will repeat BMP, if improved will continue fluid support and treat nausea/vomiting symptomatically. If sodium has down trended with fluid resuscitation, over urine studies consistent with SIADH fluid restrict and trend Nausea/vomiting, acute X3 days Patient is hyponatremic, hypokalemic Renal function is normal at baseline, 0.49 on admission BSG 212, bicarb is normal CTA/P: Esophageal wall thickness increased suspicious for esophagitis, otherwise no acute process within the abdomen or pelvis Some concern for dark emesis, patient continued on PPI twice daily IV. Hemoglobin is stable, trended. BUN is not elevated. Stool viral panel pending Clear diet, may advance to DM 1 if hemoglobin stable and patient clinically improving/tolerating Type I DM, acute on chronic requiring medication adjustments due to poor p.o./n.p.o. status Home glargine 10 units every morning continued On 16 units short acting 3 times daily at home, converted to weight-based SSI A1c pending Glucose checks ACHS Gastroparesis, chronic Continue Linzess Chronic, longstanding. Patient follows with [facility] and has had multiple treatments all of which have been with poor efficacy. Symptomatic care as above, will continue to require follow-up with GI as outpatient Depression/anxiety, chronic Continue duloxetine Continue BuSpar DVT prophylaxis: SCDs. Pharmacal prophylaxis held for? Dark emesis and hemoglobin trend Diet: DM 1 CODE STATUS: Full code Disposition: Medical telemetry for acute hyponatremia (2) IBS (irritable bowel syndrome): (3) Seizure-like activity: (4) Hypoglycemia unawareness associated with type 1 diabetes mellitus: (5) Gastroparesis: History of Present Illness Primary Care Provider: Iraida Mayorga MD Sonia Diaz is a 22-year-old female with past medical history of type 2 diabetes mellitus w/ gastroparesis who presents with 2 to 3 days of consistent nausea/vomiting/diarrhea with abdominal pain and he was recommended for admi ssion due to hyponatremia in the 120s. She has had poor intake, does not have a history of SIADH. Urine studies are pending, received a liter of fluid. N/V/D x2 days, Dx1 No fevers or chills No chest pain or chest pressure. No palpiations. +lightheaedeness No shortnes of breath, no cough. Did have some sinus congestion 2 days ago Green bowel movements x1 day. No BRBPR, no melena No other sx Follows with Dr. Roland contreras, [place] Dr. Anderson. Reports longstanding history of gastroparesis with multiple failed medication trials, family expresses frustration over difficulty with treatments but notes they have exhausted many options. No other sick contacts Patient is fatigued, would like fluids and to rest Medical History: Reviewed Medications: Reviewed Surgical History: Reviewed Family history: Reviewed Allergies: Reviewed Social History: Reviewed Code Status: Full Allergies Allergy/AdvReac Type Severity Reaction Status Date / Time Lady Vance Allergy Severe Swelling Uncoded 02/06/23 17:18 and hives Home Medications Medication Instructions Recorded Confirmed Type fluticasone propionate 50 2 spray intranasal DAILY PRN 04/26/21 02/06/23 History mcg/actuation nasal Congestion spray,suspension blood-glucose meter,continuous #1 ea 05/23/21 01/14/23 Rx (Dexcom G6 Head End Desizing Machine Operator) magnesium 250 mg tablet 250 mg PO DAILY #30 tabs 07/17/21 02/06/23 Rx blood sugar diagnostic (OneTouch 08/01/21 01/14/23 History Verio test strips) lancets 33 gauge (OneTouch Delica 08/01/21 01/14/23 History Lancets) pen needle, diabetic 31 gauge x 08/01/21 01/14/23 History 5/16" (BD Ultra-Fine Short Pen Needle) pen needle, diabetic 31 gauge x #400 ea 08/15/21 01/14/23 Rx 5/16" (BD Ultra-Fine Short Pen Needle) ondansetron 4 mg disintegrating 4 mg PO TID PRN NAUSEA/VOMITING 10/15/21 3 Rx tablet #90 tabs insulin glargine 100 unit/mL (3 10 unit (0.1 mL) subcut QAM #15 mL 12/11/21 02/06/23 Rx mL) subcutaneous pen (Lantus Solostar U-100 Insulin) cholecalciferol (vitamin D3) 625 25,000 unit PO WK 02/26/22 02/06/23 History mcg (25,000 unit) capsule famotidine 20 mg tablet 20 mg PO BID #60 tabs 02/26/22 02/06/23 Rx sucralfate 100 mg/mL oral 10 ml PO QID #420 mL 02/26/22 02/06/23 Rx suspension (Carafate) levonorgestrel-ethinyl estradiol 1 tab PO DAILY #84 tabs 03/25/22 02/06/23 Rx 0.1 mg-20 mcg tablet (Sronyx) glucagon 3 mg/actuation nasal 3 mg intranasal ONCE PRN 03/26/22 02/06/23 Rx spray (Baqsimi) hypoglycemia #2 ea duloxetine 60 mg capsule,delayed 60 mg PO DAILY #90 caps 05/14/22 02/06/23 Rx release prochlorperazine 25 mg rectal 25 mg NC Q12H PRN nausea and 07/24/22 02/06/23 Rx suppository (Compazine) vomiting #12 ea buspirone 10 mg tablet 10 mg PO BID #180 tabs 08/04/22 02/06/23 Rx aluminum-mag hydroxide-simethicone 10 ml PO DIRECTED PRN Gi Upset 08/14/22 02/06/23 History 200 mg-200 mg-20 mg/5 mL oral susp dicyclomine 20 mg tablet 20 mg PO QID #40 tabs 10/15/22 02/06/23 Rx acetone (urine) test (Ketostix #50 ea 10/19/22 01/14/23 Rx strips) mupirocin 2 % topical ointment 1 applic topical BID #22 grams 10/28/22 02/06/23 Rx Dexcom G6 Sensor (blood-glucose #9 ea 12/19/22 01/14/23 Rx sensor) Dexcom G6 Transmitter #1 ea 12/19/22 01/14/23 Rx (blood-glucose transmitter) Novolog FlexPen U-100 Insulin 100 16 unit (0.16 mL) subcut TID #15 mL 01/06/23 02/06/23 Rx unit/mL (3 mL) subcutaneous (insulin aspart U-100) linaclotide 290 mcg capsule 290 mcg PO DAILY IBS-C #30 caps 01/14/23 02/06/23 Rx (Linzess) Past Med/Surg History Medical History Abdominal pain Anxiety Anxiety and depression Diabetes mellitus type 1 Diabetic retinopathy associated with type 1 diabetes mellitus Frequent loose stools Gastritis Gastroparesis Headache Hx of diabetic retinopathy Hypoglycemia unawareness associated with type 1 diabetes mellitus Hypokalemia IBS (irritable bowel syndrome) Insomnia Palpitations Seizure Tick bite Surgical History H/O eye surgery LASER SURGERY RT/LEFT History of colonoscopy History of ear surgery LEFT EAR S/P INFECTION FROM EARING History of esophagogastroduodenoscopy (EGD) History of myringotomy History of tonsillectomy S/P laparoscopy 04/2022 [place] teeth removed Family History Mother Family history of diabetes mellitus Grandmother (Maternal) Family history of diabetes mellitus Other Breast cancer Myocardial infarction No family history of adverse response to anesthesia Ovarian cancer Prostate cancer Denies family history of Colorectal cancer Social History Smoking Status: Current every day smoker Tobacco Type: E-cigarettes / Vaping Second Hand Exposure: No; Do You Dip or Chew Tobacco: No; Hx Alcohol Use: Yes Alcohol type: beer, wine and hard liquor Hx Substance Use: Yes Prescribed Medications: Marijuana Last Used Substance Other:: ONLY RX [facility] Preferred Language: Turkish Restaurant Inspector Required: No Beliefs That Will Affect Care: None marital status: Single Current Living Situation: Family Current Living Situation Comment: Lives with mother and mother's Feels Safe at Home: Yes Dental Care, Regularly: Yes Physical Activity Frequency: 5-6 Times per Week Assistive Devices: Oxygen - Continuous Review of Systems Review of Systems: All systems reviewed & are unremarkable except as noted in HPI & below Physical Exam Physical Exam: General: A&Ox3. NAD. Cooperative. Appears fatigued HEENT: Atraumatic, normocephalic. Pupils equal and reactive to light Pulm: CTAB A&P. -wheezes, -rales, -rhonchi. Symmetrical chest rise. No increased work of breathing. No respiratory distress. Cardiac: Regular, mildly tachycardic. Radial pulses intact and symmetrical. Abdominal: Nontender, nondistended, soft. BS present. Extremities: Warm, dry. Results & Data Results & Data Vital Signs (Past 12 Hours) Vital Signs Temp Pulse Resp BP Pulse Ox O2 Del Method 02/06/23 15:49 94 H 02/06/23 15:46 99 Room Air 02/06/23 14:50 36.1 C L 97 H 16 171/102 H 100 Room Air PG Care Time/CCT Total # of Minutes Spent Total Time Spent with Patient: Total time spent is greater than 50% in coordination of care (as documented) at patient's floor/unit and/or counseling patient: Coding Level of Care Code 93563 INT INP/OBS CARE 2/55MIN Diagnoses Hyponatremia E87.1 IBS (irritable bowel syndrome) K58.9 Seizure-like activity R56.9 Hypoglycemia unawareness associated with type 1 diabetes mellitus E10.649 Gastroparesis K31.84
[2023-02-06] MEDS ORDERED: ACETAMINOPHEN 1,000 MG/100 ML VIAL IV PRN (18:20)
[2023-02-06] MEDS ORDERED: CARBOHYDRATES FOR HYPOGLYCEMIA PO PRN (18:29)
[2023-02-06] MEDS ORDERED: GLUCOSE 10 TAB/TUBE PO PRN (18:29)
[2023-02-06] MEDS ORDERED: GLUCAGON FOR INJ 1 MG VIAL SQ PRN (18:29)
[2023-02-06] MEDS ORDERED: DEXTROSE 50% 50 ML SYRINGE IV PRN (18:29)
[2023-02-06] MEDS ORDERED: GLUCOSE 40% GEL 15 GM TUBE PO PRN (18:29)
[2023-02-06] MEDS ORDERED: LACTATED RINGER'S 1,000 ML IV SCH (18:30)
[2023-02-06] MEDS: POTASSIUM CHLORIDE / WTR 10 MEQ/100 ML PLCT IV SCH ×2 (18:49→19:47)
[2023-02-06 22:15] LABS: Anion Gap 10 (3-11); BUN Creatinine Ratio 20.5 (10-20); Blood Urea Nitrogen 9 mg/dl (6-23); Carbon Dioxide 22 mmol/L (21-32); Chloride 89 mmol/L (98-107); Creatinine Clr Calc Pharmacy 233.1 ml/min; Est GFR (African American) > 150.0 ml/min; Est GFR (Non-African American) 142.3 ml/min; Glucose 229 mg/dl (70-99(Fasting)); Potassium 4.1 mmol/L (3.5-5.1); Sodium 121 mmol/L (136-145)
[2023-02-06] MEDS: MoRPHine SULFATE 2 MG/ML CARP IV PRN (22:54)
[2023-02-06] MEDS: D5W AND LACTATED RINGERS 1,000 ML IV SCH (22:55)
[2023-02-06 23:12] LABS: Anion Gap 11 (3-11); BUN Creatinine Ratio 18.2 (10-20); Blood Urea Nitrogen 8 mg/dl (6-23); Calcium 8.1 mg/dl (8.6-10.3); Carbon Dioxide 22 mmol/L (21-32); Chloride 89 mmol/L (98-107); Est GFR (African American) > 150.0 ml/min; Est GFR (Non-African American) 142.3 ml/min; Glucose 229 mg/dl (70-99(Fasting)); Hematocrit (blood only) 37.6 % (37.0-47.0); Hemoglobin 13.3 g/dl (12.0-16.0); Potassium 3.9 mmol/L (3.5-5.1); Sodium 122 mmol/L (136-145)
[2023-02-06] MEDS: INSULIN ASPART PER UNIT CHARGE SC SCH (23:27)
[2023-02-06] MEDS: busPIRone 5 MG TAB PO SCH (23:30)
[2023-02-06] MEDS: PANTOprazole 40 MG in SYRINGE 0 ML IV SCH (23:30)
[2023-02-06] MEDS: DICYCLOMINE HCL 20 MG TAB PO SCH (23:31)
[2023-02-06] MEDS: FAMOTIDINE 20 MG TAB PO SCH (23:31)
[2023-02-07 02:48] LABS: Anion Gap 11 (3-11); BUN Creatinine Ratio 17.4 (10-20); Blood Urea Nitrogen 8 mg/dl (6-23); Calcium 8.4 mg/dl (8.6-10.3); Carbon Dioxide 23 mmol/L (21-32); Chloride 90 mmol/L (98-107); Creatinine Clr Calc Pharmacy 222.9 ml/min; Est GFR (African American) > 150.0 ml/min; Est GFR (Non-African American) 140.2 ml/min; Glucose 227 mg/dl (70-99(Fasting)); Potassium 3.8 mmol/L (3.5-5.1); Sodium 124 mmol/L (136-145)
[2023-02-07 07:19] LABS: Anion Gap 12 (3-11); BUN Creatinine Ratio 14.9 (10-20); Blood Urea Nitrogen 7 mg/dl (6-23); Calcium 8.6 mg/dl (8.6-10.3); Carbon Dioxide 22 mmol/L (21-32); Chloride 92 mmol/L (98-107); Creatinine Clr Calc Pharmacy 218.4 ml/min; Est GFR (African American) > 150.0 ml/min; Est GFR (Non-African American) 139.2 ml/min; Glucose 260 mg/dl (70-99(Fasting)); Potassium 3.9 mmol/L (3.5-5.1); Sodium 126 mmol/L (136-145)
--- NOTE | 2023-02-07 07:21 | Hospitalist Progress Note ---
Date of Service February 07, 2023 Assessment & Plan (1) Acute hyponatremia: Plan: 22yo female with a history of T1DM with associated gastroparesis, diabetic retinopathy, depression, and anxiety presents with acute hyponatremia in the setting of ~3 days of nausea, vomiting, diarrhea, and poor PO intake. Hyponatremia With 3 days of poor p.o. intake, nausea/vomiting - suspect acute although chronic baseline unclear, was last normal October 2022 No history of SIADH Based on history, suspect volume depletion, patient has received 1 L of fluids; repeat BMP on hospital day two improved from 121 to 126 (new value is 130 when correcting for hypergycemia) - Urine sodium wnl (27), urine osmolality wnl (600), serum osmolality slightly low (266) = hypotonic hyponatremia - patient is not on a thiazidee diuretic Nausea/vomiting X3 days Patient is hyponatremic, hypokalemic Renal function is normal at baseline, 0.49 on admission; BSG 212, bicarb is normal CTA/P: Esophageal wall thickness increased suspicious for esophagitis, otherwise no acute process within the abdomen or pelvis Some concern for dark emesis, patient continued on PPI twice daily IV. Hemoglobin is stable, trended. BUN is not elevated. Stool viral panel pending Clear diet, may advance to DM 1 if hemoglobin stable and patient clinically improving/tolerating T1DM - acute on chronic requiring medication adjustments due to poor p.o./n.p.o. status Home glargine 10 units every morning continued On 16 units short acting 3 times daily at home, converted to weight-based SSI A1c pending (last known value was 7.4% in December of 2021 Glucose checks ACHS Gastroparesis, chronic Continue Linzess Chronic, longstanding. Patient follows with [facility] and has had multiple treatments all of which have been with poor efficacy. Symptomatic care as above, will continue to require follow-up with GI as outpatient Depression/anxiety, chronic Continue duloxetine Continue BuSpar DVT prophylaxis: SCDs. chemoprophylaxis held d/t emesis and hemoglobin trend Diet: DM 1 CODE STATUS: Full code Disposition: Medical telemetry for acute hyponatremia (2) Nausea, vomiting and diarrhea: (3) Diabetes mellitus type 1: (4) Gastroparesis: (5) Anxiety: Admission and Anticipated Discharge Date Admission Date: February 06, 2023 Supervising Physician Co-Signing Physician Notes I personally examined the patient and verified all davis points of history and exam, discussed case, and agree with decision making with Dr Ruvalcaba. Still feeling very nauseated. Whenever the Zofran kicks in it helps some, but then she has hiccups and her stomach feels like it is being twisted or torn, and she has vomiting with any attempted p.o. intake. Diarrhea appears to have resolved. Extensive discussions with mom, answered all questions the best my abilitypatient present and awake, but laying on her side and very still due to nausea. Vitals noted, in general she appears uncomfortable. Breathing unlabored no accessory muscle use good effort. Her abdomen has epigastric tenderness but no guarding rebound or rigidity the rest of her abdomen is benign. Skin without rashes pallor or icterus. CBC, BMP noted. Intractable nausea and vomitingsuspect viral enteritis superimposed on uncontrolled type 1 diabetes/diabetic gastroparesisstill fairly bad. Escalate regimentwice daily Protonix and Pepcid both IV, 4 times daily Carafate, scheduled Zofran for 24 hours with Compazine for breakthrough nausea, continue IV fluids Hyponatremiaalmost certainly due to poor intake and GI losses. Improved to where she is no longer in danger for any ability to overcorrect, clinically appe aring neurologically intact, continue fluids, follow-up basic metabolic panel in the morning Coffee-ground emesisthis, and her esophageal thickening on CT, are 2 separate but quite reasonable reasons for EGD in the near future. Given that she is not showing active bleeding, is hemodynamically stable, certainly does not need to be done as an inpatient. Leukocytosismost likely demargination from vomiting. No overt signs of bacterial infection. Continue to follow. DVT prophylaxisambulation Subjective Patient seen and evaluated at bedside this morning. Patient feels better than yesterday but reports persistent abdominal pain and nausea. Was not able to tolerate breakfast well. Denies vomiting in addition to fever, headache, CP, SOB, and diarrhea.. Review of Systems Review of Systems: See HPI Physical Exam Physical Exam: Constitutional: well-appearing, no acute distress CV: regular rhythm, no murmur appreciated, extremities well-perfused, no LE edema Resp: CTABL, no wheezes/rales/rhonchi appreciated, no increased work of breathing GI: soft, nondistended, mild/moderate generalized abdominal tenderness in all quadrants Neuro: alert, oriented, no focal neurologic deficit appreciated Results & Data Results & Data Vital Signs (Past 12 Hours) Vital Signs Temp Pulse Pulse Pulse Resp BP BP 02/06/23 22:25 102 H 02/07/23 04:00 36.6 C 105 H 16 137/74 02/06/23 22:32 36.7 C 103 H 165/95 H 02/06/23 21:02 91 H 16 187/99 H Pulse Ox O2 Del Method 02/06/23 22:25 02/07/23 04:00 98 Room Air 02/06/23 22:32 98 Room Air 02/06/23 21:02 97 Room Air Resident Activity Tracking Resident Involvement: Resident Care Provided Care Provided: Adult Hospital Medicine
[2023-02-07 07:23] LABS: Basophils # (auto) 0.01 K/uL (0-0.2); Basophils % (auto) 0.1 %; Hematocrit (blood only) 36.1 % (37.0-47.0); Hemoglobin 12.7 g/dl (12.0-16.0); Immature Granulocytes # (auto) 0.05 K/uL (0.01-0.20); Immature Granulocytes % (auto) 0.4 %; Lymphocytes # (auto) 1.37 K/uL (1.2-3.4); Lymphocytes % (auto) 9.7 %; Mean Corpuscular Hemoglobin 28.9 pg (25.0-34.0); Mean Corpuscular Hgb Conc 35.2 g/dL (32.0-36.0); Mean Platelet Volume 11.8 fL (9.4-12.4); Monocytes # (auto) 1.06 K/uL (0.11-0.59); Monocytes % (auto) 7.5 %; Neutrophils % (auto) 82.3 %; Platelet Count 260 K/uL (130-400); RDW Coefficient of Variation 12.2 % (11.5-14.5); RDW Standard Deviation 36.8 fL (36.4-46.3); White Blood Count 14.09 K/ul (4.8-10.8)
[2023-02-07] MEDS: ONDANSETRON INJ 2 MG/ML 2 ML VIAL IV PRN ×2 (07:58→16:18)
[2023-02-07] MEDS: busPIRone 5 MG TAB PO SCH ×2 (07:59→21:31)
[2023-02-07] MEDS: FAMOTIDINE 20 MG TAB PO SCH (07:59)
[2023-02-07] MEDS: DICYCLOMINE HCL 20 MG TAB PO SCH ×4 (07:59→21:31)
[2023-02-07] MEDS: DULoxetine HCL 60 MG CAP PO SCH (07:59)
[2023-02-07] MEDS: LINACLOTIDE 145 MCG CAPSULE PO SCH (07:59)
[2023-02-07] MEDS: PANTOprazole 40 MG in SYRINGE 0 ML IV SCH ×2 (08:00→21:32)
[2023-02-07] MEDS: INSULIN ASPART PER UNIT CHARGE SC SCH ×4 (08:06→21:33)
[2023-02-07] MEDS: LANTUS PER UNIT CHARGE SQ SCH (08:06)
[2023-02-07] MEDS: MoRPHine SULFATE 2 MG/ML CARP IV PRN ×4 (09:50→19:49)
[2023-02-07] MEDS ORDERED: HYDROmorphone INJ 0.5 MG/0.5 ML SYR IV STA (10:28)
[2023-02-07] MEDS: LACTATED RINGER'S 1,000 ML IV SCH ×2 (10:36→22:08)
[2023-02-07] MEDS: D5W AND LACTATED RINGERS 1,000 ML IV SCH (10:41)
--- NOTE | 2023-02-07 18:20 | Billing Data ---
Date of Service February 07, 2023 Coding Level of Care Code 06262 SUB INP/OBS CARE MIN
[2023-02-07] MEDS: PROCHLORPERAZINE 5 MG in SYRINGE 4 ML IV PRN (19:49)
[2023-02-07] MEDS: ONDANSETRON INJ 2 MG/ML 2 ML VIAL IV SCH (21:32)
[2023-02-07] MEDS: SUCRALFATE 1 GM/10 ML UDC PO SCH (21:32)
[2023-02-07] MEDS: FAMOTIDINE 20 MG in SYRINGE 3 ML IV SCH (21:33)
[2023-02-08] MEDS: ONDANSETRON INJ 2 MG/ML 2 ML VIAL IV SCH ×3 (03:53→16:08)
[2023-02-08] MEDS: MoRPHine SULFATE 2 MG/ML CARP IV PRN ×5 (03:59→22:10)
--- NOTE | 2023-02-08 06:55 | Hospitalist Progress Note ---
Date of Service February 08, 2023 Assessment & Plan (1) Acute hyponatremia: Plan: 22yo female with a history of T1DM with associated gastroparesis, diabetic retinopathy, depression, and anxiety presents with acute hyponatremia in the setting of ~3 days of nausea, vomiting, diarrhea, and poor PO intake. Hyponatremia With 3 days of poor p.o. intake, nausea/vomiting - suspect acute although chronic baseline unclear, was last normal October 2022 No history of SIADH Based on history, suspect volume depletion, patient has received 1L IVF - Urine sodium wnl (27), urine osmolality wnl (600), serum osmolality slightly low (266) = hypotonic hyponatremia - Patient is not on a thiazide diuretic - 02/08: sodium improved to 134 Nausea/vomiting X3 days prior to admission Renal function is normal at baseline, 0.49 on admission; BSG 212, bicarb is normal CTA/P: Esophageal wall thickness increased suspicious for esophagitis, otherwise no acute process within the abdomen or pelvis Some concern for dark emesis, patient continued on PPI twice daily IV. Hemoglobin is stable, trended. BUN is not elevated. Stool viral panel pending Clear diet, may advance to DM 1 if hemoglobin stable and patient clinically improving/tolerating T1DM - acute on chronic requiring medication adjustments due to poor p.o./n.p.o. status Home glargine 10 units every morning continued On 16 units short acting 3 times daily at home, converted to weight-based SSI A1c pending (last known value was 7.4% in December of 2021 Glucose checks ACHS Gastroparesis, chronic Continue Linzess Chronic, longstanding. Patient follows with [facility] and has had multiple treatments all of which have been with poor efficacy. Symptomatic care as above, will continue to require follow-up with GI as outpatient Depression/anxiety, chronic Continue duloxetine Continue BuSpar DVT prophylaxis: SCDs. chemoprophylaxis held d/t emesis and hemoglobin trend Diet: DM1 CODE STATUS: Full code Disposition: Medical telemetry for acute hyponatremia (2) Nausea, vomiting and diarrhea: (3) Diabetes mellitus type 1: (4) Gastroparesis: (5) Anxiety: Admission and Anticipated Discharge Date Admission Date: February 06, 2023 Supervising Physician Co-Signing Physician Notes I personally examined the patient and verified all davis points of history and exam, discussed case, and agree with decision making with Dr Ruvalcaba. Asleep whenever I see hereMom notes that she still fairly nauseated, but at least does not seem to have vomited today, and has been able to drink some Gatorade/Powerade, although has not been able to eat. Vitals noted, in general she is sleeping appears comfortable no distress. No lateralizing signs at rest. No pallor or icterus. Intractable nausea and vomitingsuspect viral enteritis superimposed on uncontrolled type 1 diabetes/diabetic gastroparesisstill fairly bad. Continue aggressive symptomatic/supportive caretwice daily Protonix and Pepcid both IV, 4 times daily Carafate, scheduled Zofran for 24 hours with Compazine for breakthrough nausea, continue IV fluids Hyponatremiaalmost certainly due to poor intake and GI losses. Improvedfollow periodically Coffee-ground emesisthis, and her esophageal thickening on CT, are 2 separate but quite reasonable reasons for EGD in the near future. Given that she is not showing active bleeding, is hemodynamically stable, certainly does not need to be done as an inpatient. Leukocytosismost likely demargination from vomiting. No overt signs of bacterial infection. Resolved DVT prophylaxisambulation Subjective Patient seen and evaluated at bedside this afternoon. Patient was very somnolent but was arousable to voice. At that moment in the afternoon, patient denied pain and noted her nausea had significantly improved compared to yesterday, though she had just gotten some antiemetics. Patient only had one spoonful of jello during breakfast and did not have an appetite during lunch. Patient denies other symptoms at this time including CP, SOB, vomiting, lightheadedness, dizziness, and diarrhea. Review of Systems Review of Systems: See HPI Physical Exam Physical Exam: Constitutional: well-appearing, no acute distress CV: regular rhythm, no murmur appreciated, extremities well-perfused Resp: CTABL, no increased work of breathing GI: soft, nondistended, mild generalized abdominal tenderness in all quadrants Neuro: alert, oriented, no focal neurologic deficit appreciated Results & Data Results & Data Vital Signs (Past 12 Hours) Vital Signs Temp Pulse Pulse Resp BP BP Pulse Ox 02/08/23 04:00 37 C 83 18 175/84 H 97 02/07/23 22:00 95 H 02/07/23 22:00 36.9 C 92 H 18 153/89 H 96 O2 Del Method 02/08/23 04:00 Room Air 02/07/23 22:00 02/07/23 22:00 Room Air Resident Activity Tracking Resident Involvement: Resident Care Provided Care Provided: Adult Hospital Medicine
[2023-02-08] MEDS: FAMOTIDINE 20 MG in SYRINGE 3 ML IV SCH ×2 (07:24→21:59)
[2023-02-08] MEDS: DICYCLOMINE HCL 20 MG TAB PO SCH ×4 (07:24→21:33)
[2023-02-08] MEDS: busPIRone 5 MG TAB PO SCH ×2 (07:25→21:33)
[2023-02-08] MEDS: PANTOprazole 40 MG in SYRINGE 0 ML IV SCH ×2 (07:30→21:34)
[2023-02-08] MEDS: SUCRALFATE 1 GM/10 ML UDC PO SCH ×4 (07:31→21:35)
[2023-02-08] MEDS: LINACLOTIDE 145 MCG CAPSULE PO SCH (07:32)
[2023-02-08] MEDS: DULoxetine HCL 60 MG CAP PO SCH (07:32)
[2023-02-08 07:35] LABS: Hematocrit (blood only) 36.2 % (37.0-47.0); Hemoglobin 12.3 g/dl (12.0-16.0); Mean Corpuscular Hemoglobin 28.6 pg (25.0-34.0); Mean Corpuscular Volume 84.2 fL (80.0-100.0); Mean Platelet Volume 11.7 fL (9.4-12.4); Platelet Count 241 K/uL (130-400); RDW Coefficient of Variation 12.7 % (11.5-14.5); RDW Standard Deviation 38.7 fL (36.4-46.3); White Blood Count 9.81 K/ul (4.8-10.8)
[2023-02-08] MEDS: INSULIN ASPART PER UNIT CHARGE SC SCH ×4 (07:51→21:34)
[2023-02-08] MEDS: LANTUS PER UNIT CHARGE SQ SCH (07:51)
[2023-02-08 07:52] LABS: Alanine Aminotransferase 17 U/L (7-52); Albumin Globulin Ratio 1.4 (0.9-2); Albumin Level 3.8 gm/dl (3.4-5.0); Alkaline Phosphatase 48 U/L (34-104); Anion Gap 6 (3-11); Aspartate Aminotransferase 19 U/L (13-39); BUN Creatinine Ratio 13.7 (10-20); Bilirubin,Total 0.4 mg/dl (0.2-1.0); Blood Urea Nitrogen 7 mg/dl (6-23); Calcium 8.3 mg/dl (8.6-10.3); Carbon Dioxide 30 mmol/L (21-32); Chloride 98 mmol/L (98-107); Creatinine Clr Calc Pharmacy 201.2 ml/min; Est GFR (African American) > 150.0 ml/min; Est GFR (Non-African American) 135.5 ml/min; Globulin 2.7 gm/dl (2.5-4.0); Glucose 195 mg/dl (70-99(Fasting)); Magnesium 1.7 mg/dl (1.7-2.4); Phosphorus 2.2 mg/dl (2.5-4.9); Potassium 3.7 mmol/L (3.5-5.1); Sodium 134 mmol/L (136-145); Total Protein 6.5 gm/dl (6.0-8.3)
[2023-02-08] MEDS: PROCHLORPERAZINE 5 MG in SYRINGE 4 ML IV PRN (12:11)
--- NOTE | 2023-02-08 16:11 | Billing Data ---
Date of Service February 08, 2023 Coding Level of Care Code 95391 SUB INP/OBS CARE MIN
[2023-02-08] MEDS: LACTATED RINGER'S 1,000 ML IV SCH (16:52)
[2023-02-08] MEDS: guaiFENesin 600 MG TABCR PO SCH (21:34)
[2023-02-08] MEDS ORDERED: ONDANSETRON INJ 2 MG/ML 2 ML VIAL IV PRN (22:00)
[2023-02-09] MEDS: LACTATED RINGER'S 1,000 ML IV SCH (05:07)
[2023-02-09] MEDS: MoRPHine SULFATE 2 MG/ML CARP IV PRN (05:40)
[2023-02-09 07:27] LABS: Estimated Average Glucose 160 mg/dl; Hemoglobin A1C 7.2 % (4.5-5.6)
[2023-02-09] MEDS: INSULIN ASPART PER UNIT CHARGE SC SCH ×2 (08:02→12:02)
[2023-02-09] MEDS: LANTUS PER UNIT CHARGE SQ SCH (08:03)
[2023-02-09] MEDS ORDERED: HYDROmorphone INJ 0.5 MG/0.5 ML SYR IV STA (08:04)
[2023-02-09 08:07] LABS: Hematocrit (blood only) 37.2 % (37.0-47.0); Mean Corpuscular Hemoglobin 29.1 pg (25.0-34.0); Mean Corpuscular Hgb Conc 34.9 g/dL (32.0-36.0); Mean Corpuscular Volume 83.2 fL (80.0-100.0); Mean Platelet Volume 11.7 fL (9.4-12.4); Platelet Count 250 K/uL (130-400); RDW Coefficient of Variation 12.6 % (11.5-14.5); RDW Standard Deviation 38.2 fL (36.4-46.3); Red Blood Count 4.47 M/uL (4.20-5.40); White Blood Count 8.63 K/ul (4.8-10.8)
[2023-02-09] MEDS: PANTOprazole 40 MG in SYRINGE 0 ML IV SCH (08:10)
[2023-02-09] MEDS: LINACLOTIDE 145 MCG CAPSULE PO SCH (08:11)
[2023-02-09] MEDS: FAMOTIDINE 20 MG in SYRINGE 3 ML IV SCH (08:11)
[2023-02-09] MEDS: DULoxetine HCL 60 MG CAP PO SCH (08:11)
[2023-02-09] MEDS: guaiFENesin 600 MG TABCR PO SCH (08:12)
[2023-02-09] MEDS: DICYCLOMINE HCL 20 MG TAB PO SCH (08:12)
[2023-02-09] MEDS: SUCRALFATE 1 GM/10 ML UDC PO SCH (08:13)
[2023-02-09] MEDS: busPIRone 5 MG TAB PO SCH (08:13)
[2023-02-09 08:25] LABS: Alanine Aminotransferase 17 U/L (7-52); Albumin Globulin Ratio 1.5 (0.9-2); Albumin Level 4.1 gm/dl (3.4-5.0); Alkaline Phosphatase 50 U/L (34-104); Anion Gap 8 (3-11); Aspartate Aminotransferase 17 U/L (13-39); BUN Creatinine Ratio 11.5 (10-20); Bilirubin,Total 0.4 mg/dl (0.2-1.0); Blood Urea Nitrogen 6 mg/dl (6-23); Calcium 8.8 mg/dl (8.6-10.3); Carbon Dioxide 33 mmol/L (21-32); Chloride 97 mmol/L (98-107); Creatinine Clr Calc Pharmacy 192.3 ml/min; Est GFR (African American) > 150.0 ml/min; Est GFR (Non-African American) 134.7 ml/min; Globulin 2.7 gm/dl (2.5-4.0); Glucose 137 mg/dl (70-99(Fasting)); Magnesium 1.7 mg/dl (1.7-2.4); Potassium 3.4 mmol/L (3.5-5.1); Sodium 138 mmol/L (136-145); Total Protein 6.8 gm/dl (6.0-8.3)
[2023-02-09] MEDS ORDERED: POTASSIUM CHLORIDE CRTAB 20 MEQ TABCR PO STA (08:49)
[2023-02-09] MEDS ORDERED: POT PHOSPHATE MONOBASIC W/ SOD TAB PO SCH (09:00)
[2023-02-09] MEDS ORDERED: MAGNESIUM OXIDE 400 MG TAB PO ONE (11:03)
--- NOTE | 2023-02-09 11:32 | Discharge Summary ---
Date of Service February 09, 2023 Admission HPI Per Admitting Provider Sonia Diaz is a 22-year-old female with past medical history of type 2 diabetes mellitus w/ gastroparesis who presents with 2 to 3 days of consistent nausea/vomiting/diarrhea with abdominal pain and he was recommended for admission due to hyponatremia in the 120s. She has had poor intake, does not have a history of SIADH. Urine studies are pending, received a liter of fluid. N/V/D x2 days, Dx1 No fevers or chills No chest pain or chest pressure. No palpiations. +lightheaedeness No shortnes of breath, no cough. Did have some sinus congestion 2 days ago Green bowel movements x1 day. No BRBPR, no melena No other sx Follows with Dr. Roland contreras, [place] [facility] Dr. Anderson. Reports longstanding history of gastroparesis with multiple failed medication trials, family expresses frustration over difficulty with treatments but notes they have exhausted many options. No other sick contacts Patient is fatigued, would like fluids and to rest Medical History: Reviewed Medications: Reviewed Surgical History: Reviewed Family history: Reviewed Allergies: Reviewed Social History: Reviewed Code Status: Full Admission Exam Per Admitting Provider General: A&Ox3. NAD. Cooperative. Appears fatigued HEENT: Atraumatic, normocephalic. Pupils equal and reactive to light Pulm: CTAB A&P. -wheezes, -rales, -rhonchi. Symmetrical chest rise. No increased work of breathing. No respiratory distress. Cardiac: Regular, mildly tachycardic. Radial pulses intact and symmetrical. Abdominal: Nontender, nondistended, soft. BS present. Extremities: Warm, dry. Principal Diagnosis Viral gastroenteritis, hyponatremia Discharge Exam Constitutional: well-appearing, no acute distress CV: regular rhythm, no murmur appreciated, extremities well-perfused Resp: CTABL, no increased work of breathing GI: soft, nondistended, mild generalized abdominal tenderness in all quadrants, no guarding or rebound Neuro: alert, oriented, no focal neurologic deficit appreciated Discharge Data Allergies Allergy/AdvReac Type Severity Reaction Status Date / Time Lady Bugs Allergy Severe Swelling Uncoded 02/06/23 17:18 and hives Consultations 02/06/23 17:45 ED Decision to Admit Stat Ordered Studies 02/06/23 15:35 CT abd pelvis IV con only Stat Hospital Course (1) Acute hyponatremia: 22yo female with a history of T1DM with associated gastroparesis, diabetic retinopathy, depression, and anxiety presents with acute hyponatremia in the setting of ~3 days of nausea, vomiting, diarrhea, and poor PO intake. Hyponatremia Acute hypotonic hyponatremia 2/2 volume depletion in setting of viral GI illness - Improved with fluid resuscitation - Na resolved to 138 at time of discharge - Recommended continued oral hydration on discharge Viral gastroenteritis Coffee ground emesis CTAP- esophageal wall thickness concerning for esophagitis Stool viral panel still pending at time of discharge - Noted coffee-ground emesis during stay, -Likely from gastritis -started on pantoprazole 40 mg IV BID -Discharged with pantoprazole 40 mg BID until PCP clearance -Recommend EGD as outpatient - Discharged with Zofran PRN + clear liquid diet, advised to advance diet slowly as tolerated Hypokalemia -K 3.4, repleted -Recommend outpatient BMP Hypophosphatemia -Phosphorus 2.0, repleted -Recommend outpatient recheck Gastroparesis, chronic Chronic, longstanding. Patient follows with [facility] and has had multiple treatments all of which have been with poor efficacy. Continue Linzess - Seen by dietitian in hospital for dietary optimization - Outpatient GI follow up T1DM - acute on chronic requiring medication adjustments due to poor p.o./n.p.o. status BSGs remained stable in hospital A1c 7.2% Depression/anxiety, chronic Continue duloxetine Continue buspirone Constipation -Noted in hospital -Bowel regimen ordered, advised on discharge (2) Nausea, vomiting and diarrhea: (3) Diabetes mellitus type 1: (4) Gastroparesis: (5) Anxiety: Total Time Total Time Spent Total Time Spent (In Minutes): 30 Discharge Plan Discharge Items Patient Disposition: Home - Self-Care Reason For Visit: HYPONATREMIA, N/V Discharge Diagnosis: Acute hyponatremia, acute gastroenteritis Activity: Resume your previous activity Non-emergency contact: Primary Care Provider Call non-emergency contact if: your symptoms worsen, your pain is not controlled and you have a fever Follow-up/Referrals: Iraida Mayorga MD [Primary Care Provider] - 02/16/23 11:00 am Diet: Carb Count or DM1 Addtl Attending Provider Instructions: You were admitted to the hospital for abdominal pain, nausea, vomiting, diarrhea, and low sodium (also known as hyponatremia). Your symptoms were thought to be due to viral GI infection. You were treated with intravenous fluids in addition to medicines for pain and nausea relief. Your symptoms and sodium level have improved, and we feel it is safe for you to return home. Make sure you maintain your hydration with at least 60 oz of fluid intake per day. We do recommend you take twice daily over the counter Miralax to aid in constipation relief along with high-fiber foods and 60+ oz fluid intake. The CT scan did show some inflammation of the esophagus. It would help to evaluate this further with an endoscopy which should be discussed with your PCP at your follow-up appointment. A discharge summary will be sent to your primary care physician to ensure continuity of care. Please bring this discharge summary with you to your next office appointment so that your provider can review it at that time. Follow-up appointments: Make a follow-up appointment with your PCP within the next week. It is very important that you follow up with them shortly after discharge from the [facility]. Keep all your follow-up appointments as already scheduled. If you cannot make an appointment, notify your provider. Medications: Your medication list has been reviewed and reconciled upon discharge to ensure accuracy and continuity of care. An updated list of all your medications is included with your hospital discharge paperwork. Please review this list clos marco, and make note of any changes. -We sent Zofran to the pharmacy for nausea relief. -We also sent pantoprazole to the pharmacy. This is to help reduce acid reflux and provide stomach lining protection as your body recovers from the viral infection. Please take pantoprazole twice a day until your PCP clears you to stop the medication. If you have any issues filling these prescriptions, please call [phone] and ask to leave a message for Dr. Olga Siddiqi. Take your medications as instructed; do not skip a dose of your medicines. Make sure all of your doctors know every medicine you are taking (including [id number] medicines, vitamins, and supplements). Call your primary care provider before taking any new medicines (including [id number] medicines, vitamins, and supplements), because some of these may interact with your current medications, or may make your symptoms worse. Tell your primary care provider if you cannot afford your medications. CONTACT YOUR PRIMARY CARE PROVIDER if you experience any of the following: Fever, chills, chest pain, shortness of breath Worsening abdominal pain, nausea, and/or vomiting Difficulty following your treatment plan, or difficulty taking medications CALL 911 OR GO TO THE EMERGENCY DEPARTMENT if you experience any of the following: Sudden, severe abdominal pain or nausea/vomiting Severe chest pain, or chest pain that radiates (moves) to your jaw or arm Sudden, severe shortness of breath or difficulty breathing Thank you for allowing us to participate in your care. Pending Studies at Discharge: No Stand-Alone Forms: [facility] Release Medications and DC Order Prescriptions: New pantoprazole 40 mg tablet,delayed release (DR/EC) 40 mg PO BID Qty: 20 2RF ondansetron 4 mg tablet,disintegrating 4 mg PO TID PRN (Reason: nausea and vomiting) 5 Days Qty: 14 0RF Continued ondansetron 4 mg tablet,disintegrating 4 mg PO TID PRN (Reason: NAUSEA/VOMITING) Qty: 90 3RF levonorgestrel-ethinyl estrad [Sronyx] 0.1-20 mg-mcg tablet 1 tab PO DAILY Qty: 84 3RF Baqsimi 3 mg/actuation spray,non-aerosol 3 mg intranasal ONCE PRN (Reason: hypoglycemia) Qty: 2 5RF prochlorperazine [Compazine] 25 mg suppository 25 mg PA Q12H PRN (Reason: nausea and vomiting) Qty: 12 3RF buspirone 10 mg tablet 10 mg PO BID Qty: 180 3RF (DME) Ketostix Strip See Rx Instructions miscellaneous .MEDSUPPLY Qty: 50 5RF Rx Instructions: Check if blood sugars are high (DME) Dexcom G6 Sensor Device See Rx Instructions .Route Qty: 9 3RF Rx Instructions: Change every 10 days (DME) Dexcom G6 Transmitter Device See Rx Instructions .Route Qty: 1 3RF Rx Instructions: Change every 90 days insulin aspart U-100 [Novolog FlexPen U-100 Insulin] 100 unit/mL (3 mL) insulin pen 16 unit subcut TID MDD 48 units Qty: 15 5RF Rx Instructions: To be used as a scale to bring down a high blood sugar (DME) Dexcom G6 District Manager Primary [employer] Sales Misc See Rx Instructions .Route Qty: 1 0RF Rx Instructions: Use As directed (DME) pen needle, diabetic [BD Ultra-Fine Short Pen Needle] 31 gauge x 5/16" needle See Rx Instructions .Route Qty: 400 3RF Rx Instructions: Change and use new pen needle 4x a day dicyclomine 20 mg tablet 20 mg PO QID Qty: 40 1RF (DME) OneTouch Verio test strips Strip See Rx Instructions .Route Rx Instructions: Test once daily PRN (DME) lancets [OneTouch Delica Lancets] 33 gauge misc See Rx Instructions .Route Rx Instructions: Test once daily PRN (DME) pen needle, diabetic [BD Ultra-Fine Short Pen Needle] 31 gauge x 5/16" needle See Rx Instructions .Route Rx Instructions: Inject insulin four times daily Lantus Solostar U-100 Insulin 100 unit/mL (3 mL) insulin pen 10 unit subcut QAM Qty: 15 3RF duloxetine 60 mg capsule,delayed release(DR/EC) 60 mg PO DAILY Qty: 90 3RF mupirocin 2 % ointment 1 applic topical BID Qty: 22 1RF Rx Instructions: Apply BID to the right back until healed. Apply once daily to the biopsy site on the left armpit to prevent infection. Linzess 290 mcg capsule 290 mcg PO DAILY Qty: 30 11RF fluticasone propionate 50 mcg/actuation spray,suspension 2 spray INTRANASAL DAILY PRN (Reason: Congestion) cholecalciferol (vitamin D3) 625 mcg (25,000 unit) capsule 25,000 unit PO WK Rx Instructions: TAKES ON THURSDAYS sucralfate [Carafate] 100 mg/mL suspension 10 ml PO QID Qty: 420 1RF Rx Instructions: swish in mouth and swallow; use after food/drink: May substitute tablets as a slurry. famotidine 20 mg tablet 20 mg PO BID Qty: 60 0RF magnesium 250 mg tablet 250 mg PO DAILY Qty: 30 0RF alum-mag hydroxide-simeth 200-200-20 mg/5 mL Suspension 10 ml PO DIRECTED PRN (Reason: Gi Upset) Discharge Orders: Discharge Order (Routine); Ordered 02/09/23 Ordered By: Olga Hoffman/Other Patient Handouts: Managing Type 1 Diabetes Admission Data Admit Date/Time: 02/06/23 17:57 Attending Provider: Alexa Deleon Admit Provider: Marvin Robison Primary Care Provider: Iraida Mayorga Other Providers: Marvin Robison ; Harpreet Bustamante Other Interventions: Discharge Summary Assessment (RN) Last Done: 02/09/23 12:25 Supervising Physician Co-Signing Physician Notes Resident Physician Supervision Note: I independently interviewed and examined the patient and verified the davis history and physical, reviewed labs and image studies and agree with resident findings and care plan. Resident Activity Tracking Resident Involvement: Resident Care Provided Care Provided: Adult Hospital Medicine
[2023-02-09] MEDS ORDERED: POLYETHYLENE (MIRALAX) 17 GM PACK PO STA (12:03)
== END 2023-02-09 12:46 | disposition home or self-care (01) | DRG 641 ==
LOC: ED 14:35 → SUATTDRO 17:57 → 2W 17:57

== ENCOUNTER 2023-04-27 07:55 | Inpatient (IN) ==
[2023-04-27] MEDS ORDERED: SODIUM CHLORIDE 0.9% 1000ML 1,000 ML IV STA (08:47)
[2023-04-27] MEDS ORDERED: diphenhydrAMINE 50 MG/ML VIAL IV STA (08:47)
[2023-04-27] MEDS ORDERED: KETOROLAC TROMETHAMINE 15 MG/ML VIAL IV STA (08:47)
[2023-04-27] MEDS ORDERED: METOCLOPRAMIDE HCL INJ 5 MG/ML 2 ML VIAL IV STA (08:47)
--- NOTE | 2023-04-27 09:08 | Emergency Department Note ---
ED Provider Note History of Present Illness Chief Complaint: Abdominal Pain Stated Complaint: SEVERE PAIN IN HER STOMACH Time Seen by Provider: 04/27/23 08:06 23-year-old female who presents to the emergency department with family for juanita luation of severe abdominal pain, nausea, vomiting and diarrhea for the past 3 days. The patient reports that she has been unable to eat any solid foods. She has been drinking and eating popsicles. The patient reports that her abdomen feels like it is twisted inside, and rates her discomfort a 9 out of 10. She describes it as a crampy sensation. It does not radiate into the back or chest. The patient follows with Dr. Watkins, hand cell tuber for history of IBS, gastroparesis and cyclic vomiting. Home Medications Medication Instructions Recorded Confirmed Type blood-glucose meter,continuous #1 ea 05/23/21 04/23/23 Rx (Dexcom G6 Storage Specialist) lancets 33 gauge (OneTouch Delica 08/01/21 04/23/23 History Lancets) pen needle, diabetic 31 gauge x #400 ea 08/15/21 04/23/23 Rx 5/16" (BD Ultra-Fine Short Pen Needle) ondansetron 4 mg disintegrating 4 mg PO TID PRN NAUSEA/VOMITING 10/15/2104/11 Rx tablet #90 tabs cholecalciferol (vitamin D3) 625 25,000 unit PO WK 02/26/22 04/27/23 History mcg (25,000 unit) capsule glucagon 3 mg/actuation nasal 3 mg intranasal ONCE PRN 03/26/22 04/27/23 Rx spray (Baqsimi) hypoglycemia #2 ea aluminum-mag hydroxide-simethicone 10 ml PO DIRECTED PRN Gi Upset 08/14/22 04/27/23 History 200 mg-200 mg-20 mg/5 mL oral susp acetone (urine) test (Ketostix #50 ea 10/19/22 04/23/23 Rx strips) Dexcom G6 Sensor (blood-glucose #9 ea 12/19/22 04/23/23 Rx sensor) Dexcom G6 Transmitter #1 ea 12/19/22 04/23/23 Rx (blood-glucose transmitter) Novolog FlexPen U-100 Insulin 100 16 unit (0.16 mL) subcut TID #15 mL 01/06/23 04/27/23 Rx unit/mL (3 mL) subcutaneous (insulin aspart U-100) pantoprazole 40 mg tablet,delayed 40 mg PO BID #20 tabs 02/09/23 04/27/23 Rx release Medical Marijauna 1 dose inhalation UD PRN Abdominal 02/20/23 04/27/23 History Pain duloxetine 60 mg capsule,delayed 60 mg PO QAM 02/20/23 04/27/23 History release insulin regular human 100 unit/mL 15 unit subcut QAM 02/20/23 04/27/23 History (3 mL) subcutaneous pen (Novolin R FlexPen) magnesium 250 mg tablet 250 mg PO QAM 02/20/23 04/27/23 History loratadine 10 mg tablet 10 mg PO DAILY PRN allergy 03/04/23 04/27/23 Rx symptoms #90 tabs buspirone 10 mg tablet 10 mg PO BID PRN Anxiety 03/15/23 04/27/23 History etodolac 200 mg capsule 200 mg PO Q12H PRN pain #14 caps 03/15/23 04/27/23 Rx sucralfate 100 mg/mL oral 10 ml PO QID PRN as directed 03/15/23 04/27/23 History suspension (Carafate) levonorgestrel-ethinyl estradiol 1 tab PO QAM #84 tabs 03/19/23 04/27/23 Rx 0.1 mg-20 mcg tablet (Sronyx) OneTouch Verio test strips (blood #100 ea 04/06/23 04/23/23 Rx sugar diagnostic) insulin glargine 100 unit/mL (3 12 unit subcut QAM 04/09/23 04/27/23 History mL) subcutaneous pen (Lantus Solostar U-100 Insulin) famotidine 40 mg tablet 40 mg PO PM 04/27/23 04/27/23 History Allergies Allergy/AdvReac Type Severity Reaction Status Date / Time Lady Bugs Allergy Severe Swelling Uncoded 04/23/23 11:20 and hives Past Med/Surg History Medical History Anxiety and depression Gastroparesis Hx of diabetic retinopathy Hx of gastritis IBS (irritable bowel syndrome) Insomnia Seizure 11/2021>MEDICATION INDUCED Surgical History H/O eye surgery LASER SURGERY RT/LEFT H/O pyloroplasty 04/2022 AT [facility] History of colonoscopy History of ear surgery LEFT EAR S/P INFECTION FROM EARING History of esophagogastroduodenoscopy (EGD) History of myringotomy History of tonsillectomy and adenoidectomy S/P laparoscopy [place] teeth removed Family History Mother Family history of diabetes mellitus Grandmother (Maternal) Family history of diabetes mellitus Other Breast cancer Myocardial infarction No family history of adverse response to anesthesia Ovarian cancer Prostate cancer Denies family history of Colorectal cancer Social History Smoking Status: Current every day smoker Tobacco Type: E-cigarettes / Vaping Cigarettes Per Day: VAPES DAILY>ADVISED; Second Hand Exposure: No; Do You Dip or Chew Tobacco: No; Hx Alcohol Use: Yes Alcohol type: beer, wine and hard liquor Preferred Language: Kazakh Communication Ability: Effective Dope Sprayer Required: No Beliefs That Will Affect Care: None marital status: Single Current Living Situation: Family Current Living Situation Comment: LIVES WITH MOTHER AND FATHER Feels Safe at Home: Yes Dental Care, Regularly: Yes Physical Activity Frequency: 5-6 Times per Week Assistive Devices: Contacts Physical Exam Vital Signs Vital Signs - 24 hr 04/27/23 07:56 04/27/23 08:56 04/27/23 08:56 Temperature 36.6 C Temperature Source Oral Pulse Rate 96 H Pulse Rate [Finger] 98 H Respiratory Rate 16 16 Blood Pressure 137/86 Blood Pressure [Left Calf] 152/87 H Blood Pressure Mean 103 Blood Pressure Mean [Left Calf] 108 Pulse Oximetry 100 98 98 Sepsis Recent Fever Within 48 Hours No Sepsis New/Unexplained Change in Mental Status N/A Sepsis Action Taken by Nursing No Action Required 04/27/23 10:00 04/27/23 11:19 04/27/23 10:43 Temperature Temperature Source Pulse Rate 85 85 Pulse Rate [Finger] Respiratory Rate 19 Blood Pressure Blood Pressure [Left Calf] 106/70 Blood Pressure Mean Blood Pressure Mean [Left Calf] 82 Pulse Oximetry 98 Sepsis Recent Fever Within 48 Hours Sepsis New/Unexplained Change in Mental Status Sepsis Action Taken by Nursing 04/27/23 10:50 04/27/23 11:00 04/27/23 11:00 Temperature Temperature Source Pulse Rate 87 88 Pulse Rate [Finger] Respiratory Rate 18 19 Blood Pressure 150/91 H Blood Pressure [Left Calf] Blood Pressure Mean 99 Blood Pressure Mean [Left Calf] Pulse Oximetry Sepsis Recent Fever Within 48 Hours Sepsis New/Unexplained Change in Mental Status Sepsis Action Taken by Nursing 04/27/23 11:10 04/27/23 11:20 04/27/23 11:30 Temperature Temperature Source Pulse Rate 80 85 Pulse Rate [Finger] Respiratory Rate 15 16 Blood Pressure 109/70 Blood Pressure [Left Calf] Blood Pressure Mean 88 Blood Pressure Mean [Left Calf] Pulse Oximetry Sepsis Recent Fever Within 48 Hours Sepsis New/Unexplained Change in Mental Status Sepsis Action Taken by Nursing 04/27/23 11:30 Temperature Temperature Source Pulse Rate 78 Pulse Rate [Finger] Respiratory Rate 18 Blood Pressure Blood Pressure [Left Calf] Blood Pressure Mean Blood Pressure Mean [Left Calf] Pulse Oximetry Sepsis Recent Fever Within 48 Hours Sepsis New/Unexplained Change in Mental Status Sepsis Action Taken by Nursing CONSTITUTIONAL: Obese female in moderate discomfort. HEENT: No scleral icterus or conjunctival injection. Mucous membranes are dry. RESPIRATORY: Clear to auscultation bilaterally with no wheezing, crackles, rhonchi or stridor. CARDIOVASCULAR: Regular rate and rhythm with no murmurs, rubs or gallops. GASTROINTESTINAL: Bowel sounds present in all quadrants. Abdomen is generally tender to palpation without rigidity, guarding or rebound. Negative McBurney's point tenderness. MUSCULOSKELETAL: Full range of motion of all joints without discomfort. INTEGUMENTARY: No rash or other significant dermatologic conditions noted. HEMATOLOGIC: No ecchymosis or petechiae. PSYCHIATRIC: Flat affect. NEUROLOGIC: No focal neurologic deficits noted. Course Course Patient history and physical exam were performed. Nurses notes were reviewed. Vital signs were reviewed. Also reviewed prior medical records, showing that the patient did see Dr. Watikns on 04/15/2023. She got a prescription for Motegrity. The patient reports that her pharmacy told her that her insurance would not cover it without a prior authorization. The patient has not contacted Dr. Watkins's office for further guidance. She has been taking Zofran at home which has not helped with her nausea. IV access was established, and labs were drawn. The patient was hydrated with a liter normal saline, and administered IV Toradol, Reglan and Benadryl. Review of labs shows a moderate leukocytosis with left shift and no bandemia. CMP shows a sodium of 124, potassium 3.2 and glucose of 193. Creatinine is normal. Magnesium is mildly decreased at 1.6. Urinalysis shows 2+ glucosuria and ketonuria without evidence for infection or hematuria. Urine is negative. COVID-19 screen was negative. An abdomen obstruction series does not show evidence for obstruction or free air. Findings were discussed with the patient. The patient did request something additional for pain, and was administered IV morphine. She did report improvement of her nausea. The case was then discussed with Dr. Matta, ED attending physician, who agrees with hospitalist consultation and admission. The case was then discussed with our [facility], as well as the [facility] hospitalist service (Dr. Muñoz). Please see hospitalist dictations for further treatment and final disposition. Administered Medications Capsaicin (Capsaicin Cr 0.075% 60 Gm Tube) 1 appln EXT Q6H PRN PRN Reason: abdominal pain Stop: 05/27/23 12:39 Last Admin: 04/27/23 16:24 Dose: 1 appln Documented By: MOGUL OPERATOR Sodium Chloride (Nss 1000ml) 1,000 mls @ 100 mls/hr IV .Q10H MARIELLA Stop: 04/28/23 08:29 Last Admin: 04/27/23 15:26 Dose: 100 mls/hr Documented By: MOGUL OPERATOR Famotidine 20 mg/ Syringe 5 mls @ 2.5 mls/min IV BID MARIELLA Stop: 05/27/23 13:14 Last Admin: 04/27/23 14:10 Dose: 2.5 mls/min Documented By: FABIENNE Insulin Aspart (Insulin Aspart Per Unit Charge) 0 units SC ACHS MARIELLA Stop: 05/27/23 13:04 Last Admin: 04/27/23 14:24 Dose: Not Given Documented By: AY Discontinued Medications Diphenhydramine HCl (Diphenhydramine 50 Mg/Ml Vial) 25 mg IV NOW STA Stop: 04/27/23 08:48 Last Admin: 04/27/23 09:00 Dose: 25 mg Documented By: FABIENNE Sodium Chloride (Nss 1000ml) 1,000 mls @ 999 mls/hr IV .Q1H1M STA Stop: 04/27/23 09:47 Last Infusion: 04/27/23 10:16 Dose: 0 mls/hr Documented By: Admin: 04/27/23 09:00 Dose: 999 mls/hr Documented By: FABIENNE Potassium Chloride (K Vishnu / Wtr) 10 meq in 100 mls @ 100 mls/hr IV Q1H MARIELLA Stop: 04/27/23 12:29 Last Infusion: 04/27/23 13:46 Dose: 0 mls/hr Documented By: Admin: 04/27/23 11:44 Dose: 100 mls/hr Documented By: Infusion: 04/27/23 11:37 Dose: 100 mls/hr Documented By: Admin: 04/27/23 10:37 Dose: 100 mls/hr Documented By: FABIENNE Pantoprazole Sodium 40 mg/ (Syringe) 10 mls @ 5 mls/min IV NOW STA Stop: 04/27/23 12:18 Last Admin: 04/27/23 14:10 Dose: 5 mls/min Documented By: FABIENNE Magnesium Sulfate/Dextrose (Magnesium Sulfate / D5w) 1 gm in 100 mls @ 50 mls/hr IV Q2H MARIELLA Stop: 04/27/23 16:44 Last Admin: 04/27/23 16:19 Dose: 50 mls/hr Documented By: Infusion: 04/27/23 16:11 Dose: 50 mls/hr Documented By: Admin: 04/27/23 14:11 Dose: 50 mls/hr Documented By: FABIENNE Ketorolac Tromethamine (Ketorolac Tromethamine 15 Mg/Ml Vial) 10 mg IV NOW STA Stop: 04/27/23 08:48 Last Admin: 04/27/23 09:00 Dose: 10 mg Documented By: FABIENNE Metoclopramide HCl (Metoclopramide Hcl Inj 5 Mg/Ml 2 Ml Vial) 10 mg IV NOW STA Stop: 04/27/23 08:48 Last Admin: 04/27/23 09:00 Dose: 10 mg Documented By: FABIENNE Morphine Sulfate (Morphine Sulfate 4 Mg/Ml 1 Ml Carp\\Vial) 4 mg IV NOW STA Stop: 04/27/23 10:18 Last Admin: 04/27/23 10:37 Dose: 4 mg Documented By: FABIENNE Ondansetron HCl (Ondansetron Inj 2 Mg/Ml 2 Ml Vial) 4 mg IV NOW STA Stop: 04/27/23 10:18 Last Admin: 04/27/23 10:37 Dose: 4 mg Documented By: FABIENNE Medical Decision Making Medical Records Attestation: I reviewed the patient's medical records. Home Medications was personally reviewed by me Laboratory Data Attestation: I reviewed the patient's lab results. 04/27/23 09:05 04/27/23 09:05 Lab Results 04/27/23 04/27/23 04/27/23 Range/Units 08:41 08:56 09:05 WBC 15.64 H (4.8-10.8) K/ul RBC 4.89 (4.20-5.40) M/uL Hgb 14.3 (12.0-16.0) g/dl Hct 39.6 (37.0-47.0) % MCV 81.0 (80.0-100.0) fL MCH 29.2 (25.0-34.0) pg MCHC 36.1 H (32.0-36.0) g/dL RDW Std Deviation 35.5 L (36.4-46.3) fL RDW Coeff of Mil 12.2 (11.5-14.5) % Plt Count 276 (130-400) K/uL MPV 12.3 (9.4-12.4) fL Immature Gran % (Auto) 0.4 % Neut % (Auto) 84.4 % Lymph % (Auto) 8.6 % [place] % (Auto) 6.4 % Eos % (Auto) 0.1 % Baso % (Auto) 0.1 % Neut # (Auto) 13.20 H (1.40-6.50) K/uL Lymph # (Auto) 1.35 (1.2-3.4) K/uL [place] # (Auto) 1.00 H (0.11-0.59) K/uL Eos # (Auto) 0.02 (0-0.50) K/uL Baso # (Auto) 0.01 (0-0.2) K/uL Immature Gran # (Auto) 0.06 (0.01-0.20) K/uL Sodium (136-145) mmol/L Potassium (3.5-5.1) mmol/L Chloride (98-107) mmol/L Carbon Dioxide (21-32) mmol/L Anion Gap (3-11) BUN (6-23) mg/dl Creatinine (0.6-1.2) mg/dl Est Cr Clr Drug Dosing ml/min Est GFR ( Amer) ml/min Est GFR (Non-Af Amer) ml/min BUN/Creatinine Ratio (10-20) Glucose (70-99(Fasting)) mg/dl Calcium (8.6-10.3) mg/dl Magnesium (1.7-2.4) mg/dl Total Bilirubin (0.2-1.0) mg/dl AST (13-39) U/L ALT (7-52) U/L Alkaline Phosphatase (34-104) U/L Total Protein (6.0-8.3) gm/dl Albumin (3.4-5.0) gm/dl Globulin (2.5-4.0) gm/dl Albumin/Globulin Ratio (0.9-2) Lipase (11-82) U/L Urine Color Urine Appearance (Clear) Urine pH (4.5-7.5) Ur Specific [place] (1.000-1.030) Urine Protein (Negative) Urine Glucose (UA) (Negative) Urine Ketones (Negative) Urine Blood (Negative) Urine Nitrite (Negative) Urine Bilirubin (Negative) Urine Urobilinogen (Negative) Ur Leukocyte Esterase (Negative) POC Ur Test NEG (NEG) SARS-CoV-2, RNA, NAAT NEGATIVE (NEGATIVE) 04/27/23 04/27/23 Range/Units 09:05 09:05 WBC (4.8-10.8) K/ul RBC (4.20-5.40) M/uL Hgb (12.0-16.0) g/dl Hct (37.0-47.0) % MCV (80.0-100.0) fL MCH (25.0-34.0) pg MCHC (32.0-36.0) g/dL RDW Std Deviation (36.4-46.3) fL RDW Coeff of Mil (11.5-14.5) % Plt Count (130-400) K/uL MPV (9.4-12.4) fL Immature Gran % (Auto) % Neut % (Auto) % Lymph % (Auto) % [place] % (Auto) % Eos % (Auto) % Baso % (Auto) % Neut # (Auto) (1.40-6.50) K/uL Lymph # (Auto) (1.2-3.4) K/uL [place] # (Auto) (0.11-0.59) K/uL Eos # (Auto) (0-0.50) K/uL Baso # (Auto) (0-0.2) K/uL Immature Gran # (Auto) (0.01-0.20) K/uL Sodium 124 L (136-145) mmol/L Potassium 3.2 L (3.5-5.1) mmol/L Chloride 88 L (98-107) mmol/L Carbon Dioxide 28 (21-32) mmol/L Anion Gap 8 (3-11) BUN 6 (6-23) mg/dl Creatinine 0.53 L (0.6-1.2) mg/dl Est Cr Clr Drug Dosing 186.7 ml/min Est GFR ( Amer) > 150.0 ml/min Est GFR (Non-Af Amer) 132.9 ml/min BUN/Creatinine Ratio 11.3 (10-20) Glucose 193 H (70-99(Fasting)) mg/dl Calcium 9.3 (8.6-10.3) mg/dl Magnesium 1.6 L (1.7-2.4) mg/dl Total Bilirubin 0.8 (0.2-1.0) mg/dl AST 19 (13-39) U/L ALT 16 (7-52) U/L Alkaline Phosphatase 67 (34-104) U/L Total Protein 8.5 H (6.0-8.3) gm/dl Albumin 5.0 (3.4-5.0) gm/dl Globulin 3.5 (2.5-4.0) gm/dl Albumin/Globulin Ratio 1.4 (0.9-2) Lipase 26 (11-82) U/L Urine Color Yellow Urine Appearance Clear (Clear) Urine pH 6.0 (4.5-7.5) Ur Specific [place] 1.007 (1.000-1.030) Urine Protein Negative (Negative) Urine Glucose (UA) 2+ H (Negative) Urine Ketones 2+ H (Negative) Urine Blood Negative (Negative) Urine Nitrite Negative (Negative) Urine Bilirubin Negative (Negative) Urine Urobilinogen Negative (Negative) Ur Leukocyte Esterase Negative (Negative) POC Ur Test (NEG) SARS-CoV-2, RNA, NAAT (NEGATIVE) Imaging Data Attestation: I personally reviewed and interpreted this imaging study as follows: My Impression: My interpretation of an abdomen obstruction series with a PA chest does not show evidence for obstruction or abdominal free air.. Radiologist report was also reviewed with concurrence. Radiologist's Impression: Chest/Abdomen X-ray 04/27/23 08:47 PA CHEST WITH ABDOMINAL SERIES CLINICAL HISTORY: Transabdominal pain. Nausea and vomiting. FINDINGS: A PA chest radiograph is compared to study dated 03/15/2023. The cardiomediastinal silhouette is unremarkable. The lungs and pleural spaces are clear. No pneumothorax is seen. The bony thorax is grossly intact. Supine and erect abdominal radiographs are compared to study dated 03/15/2023. There is a nonobstructed abdominal bowel gas pattern. No evidence of intraperitoneal free air is seen. There are no abnormal abdominal calcifications. The lumbosacral spine and bony pelvis appear intact. IMPRESSION: 1. No active disease in the chest. 2. Nonobstructed abdominal bowel gas pattern. ACT 112: Negative or not required by law. Electronically signed by: Chuy Hickey M.D. 04/27/2023 10:06 AM MDM Narrative See ED course for further details of today's visit. The patient presents to the emergency department with complaint of generalized abdominal pain, nausea, vomiting and diarrhea. The patient has a known history of IBS, gastroparesis and cyclic vomiting. Review of labs today shows a moderate leukocytosis. Profound hyponatremia, likely secondary to GI losses. The patient is also mildly hypokalemic and hypomagnesemic. An abdomen obstruction series does not show evidence for free air or obstruction. I do feel that the patient warrants admission for electrolyte repletion. Impression Acute hyponatremia, Acute hypokalemia, Nausea, vomiting and diarrhea, History of diabetic gastroparesis Discharge Plan Visit Data Chief Complaint: Abdominal Pain Stated Complaint: SEVERE PAIN IN HER STOMACH ED Provider: Paula Matta ED Midlevel Provider: Hernando Lance Discharge Problem: Acute hyponatremia, Acute hypokalemia, Nausea, vomiting and diarrhea, History of diabetic gastroparesis Patient Disposition: Admitted As Inpatient Discharge Instructions Interventions: ED Discharge Assessment Last Done: 04/27/23 12:16
[2023-04-27 09:25] LABS: Appearance Urine Clear (Clear); Basophils # (auto) 0.01 K/uL (0-0.2); Basophils % (auto) 0.1 %; Bilirubin Urine Negative (Negative); Blood Urine Negative (Negative); Color Urine Yellow; Eosinophils # (auto) 0.02 K/uL (0-0.50); Eosinophils % (auto) 0.1 %; Glucose Urine UA 2+ (Negative); Hematocrit (blood only) 39.6 % (37.0-47.0); Hemoglobin 14.3 g/dl (12.0-16.0); Immature Granulocytes # (auto) 0.06 K/uL (0.01-0.20); Immature Granulocytes % (auto) 0.4 %; Ketones Urine 2+ (Negative); Leukocyte Esterase Urine Negative (Negative); Lymphocytes # (auto) 1.35 K/uL (1.2-3.4); Lymphocytes % (auto) 8.6 %; Mean Corpuscular Hemoglobin 29.2 pg (25.0-34.0); Mean Corpuscular Hgb Conc 36.1 g/dL (32.0-36.0); Mean Platelet Volume 12.3 fL (9.4-12.4); Monocytes % (auto) 6.4 %; Neutrophils % (auto) 84.4 %; Nitrite Urine Negative (Negative); Platelet Count 276 K/uL (130-400); Protein Urine Negative (Negative); RDW Coefficient of Variation 12.2 % (11.5-14.5); RDW Standard Deviation 35.5 fL (36.4-46.3); Red Blood Count 4.89 M/uL (4.20-5.40); Specific Gravity Urine 1.007 (1.000-1.030); Urobilinogen Urine Negative (Negative); White Blood Count 15.64 K/ul (4.8-10.8)
[2023-04-27 09:41] LABS: Alanine Aminotransferase 16 U/L (7-52); Albumin Globulin Ratio 1.4 (0.9-2); Alkaline Phosphatase 67 U/L (34-104); Anion Gap 8 (3-11); Aspartate Aminotransferase 19 U/L (13-39); BUN Creatinine Ratio 11.3 (10-20); Bilirubin,Total 0.8 mg/dl (0.2-1.0); Blood Urea Nitrogen 6 mg/dl (6-23); Calcium 9.3 mg/dl (8.6-10.3); Carbon Dioxide 28 mmol/L (21-32); Chloride 88 mmol/L (98-107); Creatinine Clr Calc Pharmacy 186.7 ml/min; Est GFR (African American) > 150.0 ml/min; Est GFR (Non-African American) 132.9 ml/min; Globulin 3.5 gm/dl (2.5-4.0); Glucose 193 mg/dl (70-99(Fasting)); Lipase 26 U/L (11-82); Potassium 3.2 mmol/L (3.5-5.1); Sodium 124 mmol/L (136-145); Total Protein 8.5 gm/dl (6.0-8.3)
--- NOTE | 2023-04-27 10:07 | XRay Report ---
PA CHEST WITH ABDOMINAL SERIES CLINICAL HISTORY: Transabdominal pain. Nausea and vomiting. FINDINGS: A PA chest radiograph is compared to study dated 03/15/2023. The cardiomediastinal silhouette is unrema rkable. The lungs and pleural spaces are clear. No pneumothorax is seen. The bony thorax is grossly i ntact. Supine and erect abdominal radiographs are compared to study dated 03/15/2023. There is a nonobstructed abdominal bowel gas pattern. No evidence of intraperitoneal free air is seen. There are no abnormal abdominal calcifications. The lumbosacral spine and bony pelvis appear intact. IMPRESSION: 1. No active disease in the chest. 2. Nonobstructed abdominal bowel gas pattern. ACT 112: Negative or not required by law. Electronically signed by: Chuy Hickey M.D. 04/27/2023 10:06 AM
[2023-04-27] MEDS ORDERED: ONDANSETRON INJ 2 MG/ML 2 ML VIAL IV STA (10:17)
[2023-04-27] MEDS ORDERED: MoRPHine SULFATE 4 MG/ML 1 ML CARP\\VIAL IV STA (10:17)
--- NOTE | 2023-04-27 10:28 | History & Physical Report ---
Date of Service April 27, 2023 Assessment & Plan (1) Diabetes type 1, controlled: (2) Cyclical vomiting: (3) Gastroparesis: (4) Anxiety: (5) IBS (irritable bowel syndrome): Plan Sonia Diaz is a 22-year-old female with past medical history of type 1 diabetes mellitus, IBS, gastroparesis, cyclic vomiting. She presented to the ED due to severe abdominal pain with sensation of "twisting"/"wringing out" of her abdomen as well as 3 days of nausea/vomiting/diarrhea. Hyponatremia -Na 124 on admission, suspect secondary to GI losses. No history of SIADH -Received 1L NSS in ED -Continue with 2L NSS @ 100mL/h -Recheck BMP in AM Nausea/Vomiting, Abdominal Pain Due to Suspected Cyclic Vomiting -Zofran 4mg IV q6h PRN for breakthrough nausea -Received Benadryl, Morphine in ED with some improvement of abdominal pain -EGD 03/03 showed signs of gastritis, biopsy negative for h. pylori -Continue home Pepcid, Protonix IV -Never formally diagnosed with cyclic vomiting syndrome, encourage cessation of marijuana use -Consider trailing capsicin cream Hypomagnesemia, Hypokalemia -Mag 1.6, will order mag sulfate 2g -Potassium 3.2, received KCl in ED. -Repeat BMP in AM, will monitor on telemetry Type I Diabetes Mellitus -Home glargine 12 units qam, will continue -16 units short acting insulin TID at home, adjusted to sliding scale insulin while admitted -A1C in January 7.2% -Glycemic consult placed Gastroparesis -Recently stopped Linzess -Continue buspar Depression and Anxiety, chronic -Continue home buspar, duloxetine DVT Prophylaxis: Early ambulation Diet: Clear liquids Code Status: Full Code Disposition: Admit to [facility] History of Present Illness Primary Care Provider: Iraida Mayorga MD Sonia Diaz is a 22-year-old female with past medical history of type 1 diabetes mellitus, IBS, gastroparesis, cyclic vomiting. She presented to the ED due to severe abdominal pain with sensation of "twisting"/"wringing out" of her abdomen as well as 3 days of nausea/vomiting/diarrhea. Her symptoms began on Thursday with abdominal pain, nausea/vomiting, and diarrhea- these symptoms have been ongoing since Thursday and have been gradually worsening. She has had "dozens" of episodes of vomiting and diarrhea daily, notes some blood specks in her vomit but denies any dark color/blood in her stool. States she has only had Gatorade and popsicles since Thursday as she has been unable to keep anything down. Denies fever, chills, body aches, shortness of breath, chest pain, headache, lightheadedness, or dizziness. She denies any usual food or symptoms prior to Thursday that may have triggered this flare. She follows with Rusty [facility]EN[facility] for her gastroparesis as well as Dr. Watkins locally- just had appointment with Dr. Watkins in the beginning of April and stopped Linzess with plans to start Motegrity for her IBS-C however it was not covered by her insurance so she has not been able to start it. She was advised to stop her Cannabis use to see if it would improve her vomiting at her recent appointment, (has smoked cannabis since high school) has continued to use cannabis until stopping on Thursday after her symptoms started. Her grandmother is at bedside, notes that she has "flares" of her symptoms and was recently hospitalized in January for similar symptoms although this time the abdominal pain itself seems to be worse. ED Course: Received 1L NSS, Morphine 4mg IV, Benadryl IV, Zofran 4mg IV, Metoclopramide IV, Potassium Chloride Allergies Allergy/AdvReac Type Severity Reaction Status Date / Time Bugs Allergy Severe Swelling Uncoded 04/23/23 11:20 and hives Home Medications Medication Instructions Recorded Confirmed Type blood-glucose meter,continuous #1 ea 05/23/21 04/23/23 Rx (Dexcom G6 Distribution Operations Manager) lancets 33 gauge (OneTouch Delica 08/01/21 04/23/23 History Lancets) pen needle, diabetic 31 gauge x #400 ea 08/15/21 04/23/23 Rx 5/16" (BD Ultra-Fine Short Pen Needle) ondansetron 4 mg disintegrating 4 mg PO TID PRN NAUSEA/VOMITING 10/15/21 04/27/23 Rx tablet #90 tabs cholecalciferol (vitamin D3) 625 25,000 unit PO WK 02/26/22 04/27/23 History mcg (25,000 unit) capsule glucagon 3 mg/actuation nasal 3 mg intranasal ONCE PRN 03/26/22 04/27/23 Rx spray (Baqsimi) hypoglycemia #2 ea aluminum-mag hydroxide-simethicone 10 ml PO DIRECTED PRN Gi Upset 08/14/22 04/27/23 History 200 mg-200 mg-20 mg/5 mL oral susp acetone (urine) test (Ketostix #50 ea 10/19/22 04/23/23 Rx strips) Dexcom G6 Sensor (blood-glucose #9 ea 12/19/22 04/23/23 Rx sensor) Dexcom G6 Transmitter #1 ea 12/19/22 04/23/23 Rx (blood-glucose transmitter) Novolog FlexPen U-100 Insulin 100 16 unit (0.16 mL) subcut TID #15 mL 01/06/23 04/27/23 Rx unit/mL (3 mL) subcutaneous (insulin aspart U-100) pantoprazole 40 mg tablet,delayed 40 mg PO BID #20 tabs 02/09/23 04/27/23 Rx release Medical Marijauna 1 dose inhalation UD PRN Abdominal 02/20/23 04/27/23 History Pain duloxetine 60 mg capsule,delayed 60 mg PO QAM 02/20/23 04/27/23 History release insulin regular human 100 unit/mL 15 unit subcut QAM 02/20/23 04/27/23 History (3 mL) subcutaneous pen (Novolin R FlexPen) magnesium 250 mg tablet 250 mg PO QAM 02/20/23 04/27/23 History loratadine 10 mg tablet 10 mg PO DAILY PRN allergy 03/04/23 04/27/23 Rx symptoms #90 tabs buspirone 10 mg tablet 10 mg PO BID PRN Anxiety 03/15/23 04/27/23 History etodolac 200 mg capsule 200 mg PO Q12H PRN pain #14 caps 03/15/23 04/27/23 Rx sucralfate 100 mg/mL oral 10 ml PO QID PRN as directed 03/15/23 04/27/23 History suspension (Carafate) levonorgestrel-ethinyl estradiol 1 tab PO QAM #84 tabs 03/19/23 04/27/23 Rx 0.1 mg-20 mcg tablet (Sronyx) OneTouch Verio test strips (blood #100 ea 04/06/23 04/23/23 Rx sugar diagnostic) insulin glargine 100 unit/mL (3 12 unit subcut QAM 04/09/23 04/27/23 History mL) subcutaneous pen (Lantus Solostar U-100 Insulin) famotidine 40 mg tablet 40 mg PO PM 04/27/23 04/27/23 History Past Med/Surg History Medical History Anxiety and depression Gastroparesis Hx of diabetic retinopathy Hx of gastritis IBS (irritable bowel syndrome) Insomnia Seizure 11/2021>MEDICATION INDUCED Surgical History H/O eye surgery LASER SURGERY RT/LEFT H/O pyloroplasty 04/2022 AT [facility] History of colonoscopy History of ear surgery LEFT EAR S/P INFECTION FROM EARING History of esophagogastroduodenoscopy (EGD) History of myringotomy History of tonsillectomy and adenoidectomy S/P laparoscopy [place] teeth removed Family History Mother Family history of diabetes mellitus Grandmother (Maternal) Family history of diabetes mellitus Other Breast cancer Myocardial infarction No family history of adverse response to anesthesia Ovarian cancer Prostate cancer Denies family history of Colorectal cancer Social History Smoking Status: Current every day smoker Tobacco Type: E-cigarettes / Vaping Cigarettes Per Day: VAPES DAILY>ADVISED; Second Hand Exposure: No; Do You Dip or Chew Tobacco: No; Hx Alcohol Use: No Hx Substance Use: Yes Prescribed Medications: Marijuana Last Used Substance: Unknown Preferred Language: Greek Communication Ability: Effective Building Pressure Washer Required: No Beliefs That Will Affect Care: None marital status: Single Current Living Situation: Parent Current Living Situation Comment: LIVES WITH MOTHER AND FATHER Other Information That Helps Us Care for You: No Feels Safe at Home: Yes Safety Concerns: Feels Safe At This Time Dental Care, Regularly: Yes Physical Activity Frequency: 5-6 Times per Week Assistive Devices: Contacts Review of Systems Review of Systems: As per above Physical Exam Constitutional: cooperative and + lethargic Eyes: PERRL, conjunctivae normal, anicteric sclerae ENMT: external ear and nose normal, oropharynx normal Neck: trachea midline, no thyromegaly Respiratory: normal respiratory effort, lungs clear to auscultation Cardiovascular: Rate/Rhythm: regular rate and regular rhythm Heart Sounds: no murmur Extremities: normal capillary refill; no edema Gastrointestinal (Abdomen): Abdomen soft but pain to light and deep palpation. +Bowel sounds. No masses palpated Musculoskeletal: Extremities: extremities normal to inspection Skin: no rashes, warm and dry Neurologic: normal touch/pain/proprioception and moves all extremities Psychiatric: A+Ox3, euthymic affect Results & Data Results & Data Vital Signs (Past 12 Hours) Vital Signs Temp Pulse Pulse Resp BP BP Pulse Ox 04/27/23 10:00 106/70 98 04/27/23 08:56 98 04/27/23 08:56 98 H 16 152/87 H 98 04/27/23 07:56 36.6 C 96 H 16 137/86 100 Supervising Physician Co-Signing Physician Notes I personally saw and examined the patient. I verified all davis points and agree with Resident physician Dr Krissy Gama, with the following exceptions and/or additions: 23 year old female with T1DM, gastroparesis, cyclic vomiting syndrome. She reports repeated episodes over the last 2 years. Most effective are ondansetron and Compazine for her nausea. Symptoms always start off with pain. No personal or family history of migraines. O/E Ill appearing, HS RRR, no murmurs, Chest CTAB, Abdo generalized tenderness with guarding but no rebound A/P Nausea, vomiting, abdominal pain - she feels this is her gastroparesis rather than marijuana use. Discussed discontinuation of marijuana. Trial of capsaicin cream unsuccessful. Discussed trial of triptan but at this point she just wants pain medication (morphine) as she knows that works. Acetaminophen 1st line for pain, morphine 2nd line. Ondansetron 1st line for nausea, Compazine 2nd line. Imaging deferred as she feels this is very similar to per prior episodes. Agree with IV fluids with NSS and replace electrolytes as needed. Resident Activity Tracking Resident Involvement: Resident Care Provided Care Provided: Adult [facility] Medicine
[2023-04-27] MEDS: POTASSIUM CHLORIDE / WTR 10 MEQ/100 ML PLCT IV SCH ×4 (10:37→21:20)
[2023-04-27 10:47] LABS: Magnesium 1.6 mg/dl (1.7-2.4)
[2023-04-27] MEDS ORDERED: PANTOprazole 40 MG in SYRINGE 0 ML IV STA (12:17)
[2023-04-27] MEDS ORDERED: DEXTROSE 50% 50 ML SYRINGE IV PRN (12:35)
[2023-04-27] MEDS ORDERED: LORATADINE 10 MG TAB PO PRN (12:35)
[2023-04-27] MEDS ORDERED: GLUCOSE 40% GEL 15 GM TUBE PO PRN (12:35)
[2023-04-27] MEDS ORDERED: ONDANSETRON INJ 2 MG/ML 2 ML VIAL IV PRN ×2 (12:35→15:21)
[2023-04-27] MEDS ORDERED: GLUCAGON FOR INJ 1 MG VIAL SQ PRN (12:35)
[2023-04-27] MEDS ORDERED: busPIRone 5 MG TAB PO PRN (12:35)
[2023-04-27] MEDS ORDERED: GLUCOSE 10 TAB/TUBE PO PRN (12:35)
[2023-04-27] MEDS ORDERED: PHARMACY GLYCEMIC MGMT CONSULT PRN (12:35)
[2023-04-27] MEDS ORDERED: CAPSAICIN CR 0.075% 60 GM TUBE EXT PRN (12:40)
[2023-04-27] MEDS: FAMOTIDINE 20 MG in SYRINGE 3 ML IV SCH ×2 (14:10→20:57)
--- NOTE | 2023-04-27 14:10 | Pharmacy Report ---
Pharmacy Glycemic Short Note 2 - Date of Service April 27, 2023 - Glycemic Short BSG Results (Last 24 hours): 04/27/23 09:05 Glucose 193 H OUTPATIENT ANTIDIABETIC REGIMEN: * Lantus 12 units SC qAM * Novolin R 15 units SC qAM * Novolog 3-4x/day - CF: 50 (BSG > 150 mg/dL) HbA1c: 7.2% (02/08/23) ASSESSMENT: * HERMINIA is a 23 year old female with type 1 diabetes (w/ history of diabetes retinopathy/gastroparesis) admitted today with severe abdominal pain and 3-4 days of nausea/vomiting * Patient reports administering AM insulin (Lantus 12 units and Novolin R 15 units) prior to admission * Clear liquid diet ordered PLAN FOR INPATIENT GLYCEMIC CONTROL: * Basal insulin * Lantus 12 units SC daily (received this AM prior to admission) * Reassess in AM * Bolus insulin * NovoLog per scale ACHS or Q6hrs while NPO * Goal Range: Low 120 mg/dL - High 150 mg/dL * Correction Factor: 30 mg/dL/unit * Nutritional / Prandial insulin per carb ratio of 1 unit per 10 grams CHO consumed
[2023-04-27] MEDS: MAGNESIUM SULFATE / D5W 1 GM/100 ML BAG IV SCH ×2 (14:11→16:19)
[2023-04-27] MEDS: INSULIN ASPART PER UNIT CHARGE SC SCH ×3 (14:24→20:46)
[2023-04-27] MEDS ORDERED: PROCHLORPERAZINE 5 MG in SYRINGE 4 ML IV PRN (15:21)
[2023-04-27] MEDS: SODIUM CHLORIDE 0.9% 1000ML 1,000 ML IV SCH (15:26)
[2023-04-27] MEDS: ACETAMINOPHEN 1,000 MG/100 ML VIAL IV PRN (19:44)
[2023-04-27] MEDS: PANTOprazole 40 MG in SYRINGE 0 ML IV SCH (20:11)
[2023-04-27] MEDS ORDERED: PANTOprazole 40 MG TAB PO SCH (21:00)
[2023-04-27] MEDS: MoRPHine SULFATE 4 MG/ML 1 ML CARP\\VIAL IV PRN (22:48)
[2023-04-28] MEDS: SODIUM CHLORIDE 0.9% 1000ML 1,000 ML IV SCH (00:31)
[2023-04-28] MEDS: MoRPHine SULFATE 4 MG/ML 1 ML CARP\\VIAL IV PRN ×4 (05:27→20:55)
--- NOTE | 2023-04-28 07:31 | Billing Data ---
Date of Service April 27, 2023 Coding Level of Care Code 31175 INT INP/OBS CARE
[2023-04-28] MEDS: ACETAMINOPHEN 1,000 MG/100 ML VIAL IV PRN (07:58)
[2023-04-28] MEDS: INSULIN ASPART PER UNIT CHARGE SC SCH ×4 (08:00→20:55)
[2023-04-28] MEDS: DULoxetine HCL 60 MG CAP PO SCH (08:01)
[2023-04-28] MEDS: PANTOprazole 40 MG in SYRINGE 0 ML IV SCH ×2 (08:01→20:55)
[2023-04-28] MEDS: LANTUS PER UNIT CHARGE SC SCH (08:04)
[2023-04-28] MEDS: FAMOTIDINE 20 MG in SYRINGE 3 ML IV SCH ×2 (08:04→20:55)
[2023-04-28 08:07] LABS: Basophils # (auto) 0.01 K/uL (0-0.2); Basophils % (auto) 0.1 %; Eosinophils # (auto) 0.01 K/uL (0-0.50); Eosinophils % (auto) 0.1 %; Hematocrit (blood only) 36.3 % (37.0-47.0); Hemoglobin 12.4 g/dl (12.0-16.0); Immature Granulocytes # (auto) 0.04 K/uL (0.01-0.20); Immature Granulocytes % (auto) 0.4 %; Lymphocytes # (auto) 1.18 K/uL (1.2-3.4); Lymphocytes % (auto) 12.4 %; Mean Corpuscular Hemoglobin 28.6 pg (25.0-34.0); Mean Corpuscular Hgb Conc 34.2 g/dL (32.0-36.0); Mean Corpuscular Volume 83.8 fL (80.0-100.0); Mean Platelet Volume 12.3 fL (9.4-12.4); Monocytes # (auto) 0.95 K/uL (0.11-0.59); Neutrophils # (auto) 7.31 K/uL (1.40-6.50); Platelet Count 241 K/uL (130-400); RDW Coefficient of Variation 12.4 % (11.5-14.5); RDW Standard Deviation 37.9 fL (36.4-46.3); Red Blood Count 4.33 M/uL (4.20-5.40)
[2023-04-28 08:29] LABS: BUN Creatinine Ratio 10.3 (10-20); Calcium 8.6 mg/dl (8.6-10.3); Creatinine Clr Calc Pharmacy 170.8 ml/min; Est GFR (African American) 149.5 ml/min; Magnesium 1.9 mg/dl (1.7-2.4); Potassium 3.7 mmol/L (3.5-5.1)
[2023-04-28] MEDS ORDERED: LANTUS PER UNIT CHARGE SQ SCH (09:00)
--- NOTE | 2023-04-28 11:12 | Gastrointestinal Consultation ---
Date of Consultation April 28, 2023 Assessment & Plan (1) Cyclical vomiting: (2) Gastroparesis: (3) Nausea, vomiting and diarrhea: Plan Patient with history of similar symptoms off and on over the past 2-3 years. she tells me that her current symptoms are very typical with her gastroparesis flares and she tells me that in the past she has just had to wait them out. she was to follow with [facility] [facility] on this but she never scheduled appointment and she has continued to use marijuana despite being advised to stop this. Discussed case with Dr. Watkins who helped advise on plan. - recommend stopping all marijuana use. - I have reached out to our office to have them help schedule an appointment with [facility] as outpatient to follow up with Dr. Anderson on her gastroparesis. appointment scheduled 05/06/23 at 10 AM via telehealth with Dr. Sudeep Aguilera MD. - continue with zofran 4mg IV q 4 hours and Compazine 5mg q 6 hours prn nausea/vomiting. - continue protonix 40mg IV bid and famotidine 20mg IV bid. - will start reglan 10mg IV QID to see if this helps symptoms. History of Present Illness Reason for Consultation: abdominal pain, vomiting. Requesting Physician: Tapan Rodrigues MD Attending Physician: Tapan Rodrigues History of Present Illness Patient is a 23 year old female with past medical history of type 1 diabetes mellitus, IBS, gastroparesis s/p pyloromyotomy, cyclic vomiting. She presented to the ED due to abdominal pain with sensation of "wringing out" of her abdomen as well as 3 days of nausea/vomiting/diarrhea. she tells me that she has had these symptoms now off and on for the past 2-3 years. She attributes these symptoms to her gastroparesis. She tells me that when she gets these episodes she just has to wait them out and they typically last for about 5 days. She has a history of gastroparesis and follows with Dr. Anderson at [facility] with this - she was to reach out to schedule a follow up appointment after last appointment earlier this month at our office but she never did. She tells me that it has been about 8 months since her last appointment at [facility]. At time of last office visit there was question of cannabis hyperemesis syndrome causing her issues. she had continued to use cannabis until her most recent symptoms started. Since admission she admits that nausea, vomiting, and diarrhea has resolved. no bowel movement today. Last bowel movement was yesterday. She still however has ongoing issues with her abdominal pain, though slightly better than it was previously. rated today 8/10. she is tolerating clear liquid diet though feels her stomach pain can be worse with intake at times. she denies any heartburn, dysphagia, brbpr, or melena. EGD 02/2023 Gastritis. 04/28/23 cbc unremarkable, BMP unremarkable except sodium 134 glucose 194. Allergies Allergy/AdvReac Type Severity Reaction Status Date / Time Lady Vance Allergy Severe Swelling Uncoded 04/23/23 11:20 and hives Home Medications Medication Instructions Recorded Confirmed Type blood-glucose meter,continuous #1 ea 05/23/21 04/23/23 Rx (Dexcom G6 Gate Mortiser Operator) lancets 33 gauge (OneTouch Delica 08/01/21 04/23/23 History Lancets) pen needle, diabetic 31 gauge x #400 ea 08/15/21 04/23/23 Rx 5/16" (BD Ultra-Fine Short Pen Needle) ondansetron 4 mg disintegrating 4 mg PO TID PRN NAUSEA/VOMITING 10/15/21 04/27/23 Rx tablet #90 tabs cholecalciferol (vitamin D3) 625 25,000 unit PO WK 02/26/22 04/27/23 History mcg (25,000 unit) capsule glucagon 3 mg/actuation nasal 3 mg intranasal ONCE PRN 03/26/22 04/27/23 Rx spray (Baqsimi) hypoglycemia #2 ea aluminum-mag hydroxide-simethicone 10 ml PO DIRECTED PRN Gi Upset 08/14/22 04/27/23 History 200 mg-200 mg-20 mg/5 mL oral susp acetone (urine) test (Ketostix #50 ea 10/19/22 04/23/23 Rx strips) Dexcom G6 Sensor (blood-glucose #9 ea 12/19/22 04/23/23 Rx sensor) Dexcom G6 Transmitter #1 ea 12/19/22 04/23/23 Rx (blood-glucose transmitter) Novolog FlexPen U-100 Insulin 100 16 unit (0.16 mL) subcut TID #15 mL 01/06/23 04/27/23 Rx unit/mL (3 mL) subcutaneous (insulin aspart U-100) pantoprazole 40 mg tablet,delayed 40 mg PO BID #20 tabs 02/09/23 04/27/23 Rx release Medical Marijauna 1 dose inhalation UD PRN Abdominal 02/20/23 04/27/23 History Pain duloxetine 60 mg capsule,delayed 60 mg PO QAM 02/20/23 04/27/23 History release insulin regular human 100 unit/mL 15 unit subcut QAM 02/20/23 04/27/23 History (3 mL) subcutaneous pen (Novolin R FlexPen) magnesium 250 mg tablet 250 mg PO QAM 02/20/23 04/27/23 History loratadine 10 mg tablet 10 mg PO DAILY PRN allergy 03/04/23 04/27/23 Rx symptoms #90 tabs buspirone 10 mg tablet 10 mg PO BID PRN Anxiety 03/15/23 04/27/23 History etodolac 200 mg capsule 200 mg PO Q12H PRN pain #14 caps 03/15/23 04/27/23 Rx sucralfate 100 mg/mL oral 10 ml PO QID PRN as directed 03/15/23 04/27/23 History suspension (Carafate) levonorgestrel-ethinyl estradiol 1 tab PO QAM #84 tabs 03/19/23 04/27/23 Rx 0.1 mg-20 mcg tablet (Sronyx) OneTouch Verio test strips (blood #100 ea 04/06/23 04/23/23 Rx sugar diagnostic) insulin glargine 100 unit/mL (3 12 unit subcut QAM 04/09/23 04/27/23 History mL) subcutaneous pen (Lantus Solostar U-100 Insulin) famotidine 40 mg tablet 40 mg PO PM 04/27/23 04/27/23 History Patient History Medical History Anxiety and depression Gastroparesis Hx of diabetic retinopathy Hx of gastritis IBS (irritable bowel syndrome) Insomnia Seizure 11/2021>MEDICATION INDUCED Surgical History H/O eye surgery LASER SURGERY RT/LEFT H/O pyl[facility]oplasty [facility]20[facility] History of colonoscopy History of ear surgery LEFT EAR S/P INFECTION FROM EARING History of esophagogastroduodenoscopy (EGD) History of myringotomy History of tonsillectomy and adenoidectomy S/P laparoscopy [place] teeth removed Family History Mother Family history of diabetes mellitus Grandmother (Maternal) Family history of diabetes mellitus Other Breast cancer Myocardial infarction No family history of adverse response to anesthesia Ovarian cancer Prostate cancer Denies family history of Colorectal cancer Social History Smoking Status: Current every day smoker Tobacco Type: E-cigarettes / Vaping Cigarettes Per Day: VAPES DAILY>ADVISED; Second Hand Exposure: No; Do You Dip or Chew Tobacco: No; Hx Alcohol Use: No Hx Substance Use: Yes Prescribed Medications: Marijuana Last Used Substance: Unknown Preferred Language: Malawian Communication Ability: Effective Metal Ceiling Hanger Required: No Beliefs That Will Affect Care: None marital status: Single Current Living Situation: Parent Current Living Situation Comment: LIVES WITH MOTHER AND FATHER Other Information That Helps Us Care for You: No Feels Safe at Home: Yes Safety Concerns: Feels Safe At This Time Dental Care, Regularly: Yes Physical Activity Frequency: 5-6 Times per Week Assistive Devices: None Review of Systems Review of Systems: All systems reviewed & are unremarkable except as noted in HPI & below Physical Exam Constitutional: WD/WN, vitals as above Respiratory: normal respiratory effort, lungs clear to auscultation Cardiovascular: RRR, no murmur, no edema Gastrointestinal (Abdomen): mid epigastric tenderness, no guarding, soft, normal bowel sounds. Skin: no rashes, warm and dry Psychiatric: Orientation: alert and oriented x 3 Results & Data Vital Signs (Past 12 Hours) Vital Signs Temp Pulse Pulse Resp BP BP Pulse Ox 04/28/23 07:28 98.2 F 96 H 18 147/85 H 96 04/28/23 07:16 104 H 04/28/23 05:33 83 18 96 04/28/23 04:00 99.0 F 93 H 18 109/67 94 04/27/23 23:32 99.1 F 94 H 18 143/86 H 97 O2 Del Method 04/28/23 07:28 Room Air 04/28/23 07:16 04/28/23 05:33 Room Air 04/28/23 04:00 Room Air 04/27/23 23:32 Room Air Diagnostic Findings PA CHEST WITH ABDOMINAL SERIES CLINICAL HISTORY: Transabdominal pain. Nausea and vomiting. FINDINGS: A PA chest radiograph is compared to study dated 03/15/2023. The cardiomediastinal silhouette is unremarkable. The lungs and pleural spaces are clear. No pneumothorax is seen. The bony thorax is grossly intact. Supine and erect abdominal radiographs are compared to study dated 03/15/2023. There is a nonobstructed abdominal bowel gas pattern. No evidence of intraperitoneal free air is seen. There are no abnormal abdominal calcifications. The lumbosacral spine and bony pelvis appear intact. IMPRESSION: 1. No active disease in the chest. 2. Nonobstructed abdominal bowel gas pattern. ACT 112: Negative or not required by law. Electronically signed by: Chuy Hickey M.D. 04/27/2023 10:06 AM PG Care Time/CCT Total # of Minutes Spent Total Time Spent with Patient: Total time spent is greater than 50% in coordination of care (as documented) at patient's floor/unit and/or counseling patient: Coding Level of Care Code 29117 IN/OBS CONSULT LVL 4,60M Diagnoses Cyclical vomiting R11.15 Gastroparesis K31.84 Nausea, vomiting and diarrhea R11.2; R19.7 Time Spent (min) 63
[2023-04-28] MEDS: METOCLOPRAMIDE HCL INJ 5 MG/ML 2 ML VIAL IV SCH ×3 (11:41→22:52)
[2023-04-28 12:10] LABS: Amphetamines+Metham, Urine Neg (Neg); Barbiturates, Urine Neg (Neg); Benzodiazepine, Urine Neg (Neg); Cocaine, Urine Neg (Neg); MDMA (Ecstacy), Urine Neg (Neg); Methadone, Urine Neg (Neg); Opiate, Urine Neg (Neg); Phencyclidine, Urine Neg (Neg)
--- NOTE | 2023-04-28 12:52 | Pharmacy Report ---
Pharmacy Glycemic Short Note 2 - Date of Service April 28, 2023 - Glycemic Short BSG Results (Last 24 hours): 04/27/23 04/28/23 04/28/23 20:06 07:30 07:37 Glucose 194 H POC Glucose 177 H 200 H 04/28/23 11:26 Glucose POC Glucose 152 H OUTPATIENT ANTIDIABETIC REGIMEN: * Lantus 12 units SC qAM * Novolin R 15 units SC qAM * Novolog 3-4x/day - CF: 50 (BSG > 150 mg/dL) HbA1c: 7.2% (02/08/23) ASSESSMENT: 04/28/23: * Blood sugars not obtained while in ED, HS BSG of 177 mg/dL * Patient reportedly received 27 units of insulin prior to admission and received 1 unit of Novolog last evening * Since patient went most of day yesterday not receiving insulin, will continue patient's home dose of basal w/ current Novolog parameters 04/27/23: * KM is a 23 year old female with type 1 diabetes (w/ history of diabetes retinopathy/gastroparesis) admitted today with severe abdominal pain and 3-4 days of nausea/vomiting * Patient reports administering AM insulin (Lantus 12 units and Novolin R 15 units) prior to admission * Clear liquid diet ordered PLAN FOR INPATIENT GLYCEMIC CONTROL: * Basal insulin * Lantus 12 units SC daily * Bolus insulin * NovoLog per scale ACHS or Q6hrs while NPO * Goal Range: Low 120 mg/dL - High 150 mg/dL * Correction Factor: 30 mg/dL/unit * Nutritional / Prandial insulin per carb ratio of 1 unit per 10 grams CHO consumed
--- NOTE | 2023-04-28 21:21 | Hospitalist Progress Note ---
Date of Service April 28, 2023 Assessment & Plan (1) Diabetes type 1, controlled: (2) Cyclical vomiting: (3) Gastroparesis: (4) Anxiety: (5) IBS (irritable bowel syndrome): Plan Sonia Diaz is a 22-year-old female with past medical history of type 1 diabetes mellitus, IBS, gastroparesis, cyclic vomiting. She presented to the ED due to severe abdominal pain with sensation of "twisting"/"wringing out" of her abdomen as well as 3 days of nausea/vomiting/diarrhea. Hyponatremia -Na 124 on admission, suspect secondary to GI losses. No history of SIADH -Received 1L NSS in ED -Continue with 2L NSS @ 100mL/h -Recheck BMP in AM -sodium improved Nausea/Vomiting, Abdominal Pain Due to Suspected Cyclic Vomiting -Zofran 4mg IV q6h PRN for breakthrough nausea -Received Benadryl, Morphine in ED with some improvement of abdominal pain -EGD 03/03 showed signs of gastritis, biopsy negative for h. pylori -Continue home Pepcid, Protonix IV -Never formally diagnosed with cyclic vomiting syndrome, encourage cessation of marijuana use -Consider trailing capsicin cream -Patient states she has used marijuana about a week ago, but has stopped. Unsure if this is true, her UDS remains positive for marijuana, though this could stay in the urine for 30 days. -consulted GI: appreciate input Hypomagnesemia, Hypokalemia -Mag 1.6, will order mag sulfate 2g -Potassium 3.2, received KCl in ED. -Repeat BMP in AM, will monitor on telemetry Type I Diabetes Mellitus -Home glargine 12 units qam, will continue -16 units short acting insulin TID at home, adjusted to sliding scale insulin wh ile admitted -A1C in January 7.2% -Glycemic consult placed Gastroparesis -Recently stopped Linzess -Continue buspar Depression and Anxiety, chronic -Continue home buspar, duloxetine DVT Prophylaxis: Early ambulation Diet: Clear liquids Code Status: Full Code Disposition: Admit to Med[facility] Admission and Anticipated Discharge Date Admission Date: April 27, 2023 Subjective Patient reports no new symptoms. Review of Systems Review of Systems: All systems reviewed & are unremarkable except as noted in HPI & below Physical Exam Constitutional: cooperative and + lethargic Eyes: PERRL, conjunctivae normal, anicteric sclerae ENMT: external ear and nose normal, oropharynx normal Neck: trachea midline, no thyromegaly Cardiovascular: Rate/Rhythm: regular rate and regular rhythm Heart Sounds: no murmur Extremities: normal capillary refill; no edema Gastrointestinal (Abdomen): soft, tender to palpation Musculoskeletal: Extremities: extremities normal to inspection Neurologic: normal touch/pain/proprioception and moves all extremities Psychiatric: A+Ox3, euthymic affect Results & Data Results & Data Vital Signs (Past 12 Hours) Vital Signs Temp Pulse Pulse Resp BP Pulse Ox O2 Del Method 04/28/23 19:42 36.8 C 94 H 18 107/67 95 Room Air 04/28/23 16:24 95 H 04/28/23 15:00 36.4 C L 97 H 18 143/86 H 97 Room Air 04/28/23 11:00 36.4 C L 89 18 136/80 96 Room Air PG Care Time/CCT Total # of Minutes Spent Total Time Spent with Patient: Total time spent is greater than 50% in coordination of care (as documented) at patient's floor/unit and/or counseling patient: Coding Level of Care Code 12988 SUB INP/OBS CARE 2/35MIN Diagnoses Diabetes type 1, controlled E10.9 Cyclical vomiting R11.15 Gastroparesis K31.84 Anxiety F41.9 IBS (irritable bowel syndrome) K58.9
[2023-04-29] MEDS: MoRPHine SULFATE 4 MG/ML 1 ML CARP\\VIAL IV PRN (03:35)
[2023-04-29] MEDS: METOCLOPRAMIDE HCL INJ 5 MG/ML 2 ML VIAL IV SCH ×3 (05:21→17:32)
[2023-04-29 07:00] LABS: Basophils # (auto) 0.03 K/uL (0-0.2); Basophils % (auto) 0.5 %; Eosinophils # (auto) 0.06 K/uL (0-0.50); Hematocrit (blood only) 33.9 % (37.0-47.0); Hemoglobin 11.3 g/dl (12.0-16.0); Immature Granulocytes # (auto) 0.03 K/uL (0.01-0.20); Immature Granulocytes % (auto) 0.5 %; Lymphocytes # (auto) 2.68 K/uL (1.2-3.4); Lymphocytes % (auto) 42.8 %; Mean Corpuscular Hemoglobin 28.8 pg (25.0-34.0); Mean Corpuscular Hgb Conc 33.3 g/dL (32.0-36.0); Mean Corpuscular Volume 86.5 fL (80.0-100.0); Mean Platelet Volume 11.8 fL (9.4-12.4); Monocytes # (auto) 0.76 K/uL (0.11-0.59); Monocytes % (auto) 12.1 %; Neutrophils % (auto) 43.1 %; Platelet Count 196 K/uL (130-400); RDW Coefficient of Variation 12.7 % (11.5-14.5); Red Blood Count 3.92 M/uL (4.20-5.40); White Blood Count 6.26 K/ul (4.8-10.8)
[2023-04-29 07:33] LABS: Alanine Aminotransferase 10 U/L (7-52); Albumin Globulin Ratio 1.4 (0.9-2); Albumin Level 3.4 gm/dl (3.4-5.0); Alkaline Phosphatase 43 U/L (34-104); Anion Gap 3 (3-11); Aspartate Aminotransferase 10 U/L (13-39); BUN Creatinine Ratio 8.8 (10-20); Bilirubin,Total 0.3 mg/dl (0.2-1.0); Blood Urea Nitrogen 5 mg/dl (6-23); Calcium 8.5 mg/dl (8.6-10.3); Carbon Dioxide 32 mmol/L (21-32); Chloride 104 mmol/L (98-107); Creatinine Clr Calc Pharmacy 172.3 ml/min; Est GFR (African American) > 150.0 ml/min; Est GFR (Non-African American) 129.8 ml/min; Globulin 2.5 gm/dl (2.5-4.0); Glucose 88 mg/dl (70-99(Fasting)); Potassium 3.4 mmol/L (3.5-5.1); Sodium 139 mmol/L (136-145); Total Protein 5.9 gm/dl (6.0-8.3)
[2023-04-29] MEDS: DULoxetine HCL 60 MG CAP PO SCH (08:09)
[2023-04-29] MEDS: PANTOprazole 40 MG in SYRINGE 0 ML IV SCH (08:10)
[2023-04-29] MEDS: FAMOTIDINE 20 MG in SYRINGE 3 ML IV SCH (08:13)
[2023-04-29] MEDS: INSULIN ASPART PER UNIT CHARGE SC SCH ×3 (08:21→16:54)
[2023-04-29] MEDS: LANTUS PER UNIT CHARGE SC SCH (08:21)
[2023-04-29] MEDS: ACETAMINOPHEN 325 MG TAB PO SCH ×2 (12:32→17:30)
[2023-04-29] MEDS: CARBOHYDRATES FOR HYPOGLYCEMIA PO PRN ×2 (13:44→14:10)
--- NOTE | 2023-04-29 14:13 | Pharmacy Report ---
Pharmacy Glycemic Short Note 2 - Date of Service April 29, 2023 - Glycemic Short BSG Results (Last 24 hours): 04/28/23 04/28/23 04/29/23 16:26 20:16 06:18 Glucose 88 POC Glucose 147 H 157 H 04/29/23 04/29/23 04/29/23 08:04 11:35 13:48 Glucose POC Glucose 90 100 H 46 L* 04/29/23 14:04 Glucose POC Glucose 50 L* OUTPATIENT ANTIDIABETIC REGIMEN: * Lantus 12 units SC qAM * Novolin R 15 units SC qAM * Novolog 3-4x/day - CF: 50 (BSG > 150 mg/dL) HbA1c: 7.2% (02/08/23) ASSESSMENT: 04/29/23: * RN called me with patient's hypoglycemia, 50mg/dl this afternoon after lunch, no carb coverage given at lunch, but patient only ate a few bites of her food, therefore hypoglycemia due to decreased appetite while inpatient/gastroparesis. * Patient did have 12 units Lantus and 3 units of NovoLog with 42 gram CHO at breakfast time, will loosen CR and decrease basal to prevent further hypoglycemia. * Goal range already on higher end to help prevent hypoglycemia too. 04/28/23: * Blood sugars not obtained while in ED, HS BSG of 177 mg/dL * Patient reportedly received 27 units of insulin prior to admission and received 1 unit of Novolog last evening * Since patient went most of day yesterday not receiving insulin, will continue patient's home dose of basal w/ current Novolog parameters 04/27/23: * KM is a 23 year old female with type 1 diabetes (w/ history of diabetes retinopathy/gastroparesis) admitted today with severe abdominal pain and 3-4 days of nausea/vomiting * Patient reports administering AM insulin (Lantus 12 units and Novolin R 15 units) prior to admission * Clear liquid diet ordered PLAN FOR INPATIENT GLYCEMIC CONTROL: * Basal insulin -decrease * Lantus 9 units SC daily * Bolus insulin * NovoLog per scale ACHS or Q6hrs while NPO * Goal Range: Low 120 mg/dL - High 150 mg/dL * Correction Factor: 30 mg/dL/unit * loosen: Nutritional / Prandial insulin per carb ratio of 1 unit per 12 grams CHO consumed
[2023-04-29] MEDS ORDERED: GADOBUTROL 65ML VIAL IV ONE (16:03)
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
--- NOTE | 2023-04-29 17:56 | Discharge Summary ---
Date of Service April 29, 2023 Admission HPI Per Admitting Provider Sonia Diaz is a 22-year-old female with past medical history of type 1 diabetes mellitus, IBS, gastroparesis, cyclic vomiting. She presented to the ED due to severe abdominal pain with sensation of "twisting"/"wringing out" of her abdomen as well as 3 days of nausea/vomiting/diarrhea. Her symptoms began on Thursday with abdominal pain, nausea/vomiting, and diarrhea- these symptoms have been ongoing since Thursday and have been gradually worsening. She has had "dozens" of episodes of vomiting and diarrhea daily, notes some blood specks in her vomit but denies any dark color/blood in her stool. States she has only had Gatorade and popsicles since Thursday as she has been unable to keep anything down. Denies fever, chills, body aches, shortness of breath, chest pain, headache, lightheadedness, or dizziness. She denies any usual food or symptoms prior to Thursday that may have triggered this flare. She follows with Rusty MENDEZ for her gastroparesis as well as Dr. Watkins locally- just had appointment with Dr. Watkins in the beginning of April and stopped Linzess with plans to start Motegrity for her IBS-C however it was not covered by her insurance so she has not been able to start it. She was advised to stop her Cannabis use to see if it would improve her vomiting at her recent appointment, (has smoked cannabis since high school) has continued to use cannabis until stopping on Thursday after her symptoms started. Her grandmother is at bedside, notes that she has "flares" of her symptoms and was recently hospitalized in January for similar symptoms although this time the abdominal pain itself seems to be worse. ED Course: Received 1L NSS, Morphine 4mg IV, Benadryl IV, Zofran 4mg IV, Metoclopramide IV, Potassium Chloride Discharge Exam Constitutional cooperative and + lethargic Eyes PERRL, conjunctivae normal, anicteric sclerae ENMT external ear and nose normal, oropharynx normal Neck trachea midline, no thyromegaly Cardiovascular Rate/Rhythm: regular rate and regular rhythm Heart Sounds: no murmur Extremities: normal capillary refill; no edema Musculoskeletal Extremities: extremities normal to inspection Neurologic normal touch/pain/proprioception and moves all extremities Psychiatric A+Ox3, euthymic affect Discharge Data Allergies Allergy/AdvReac Type Severity Reaction Status Date / Time Lady Bugs Allergy Severe Swelling Uncoded 04/23/23 11:20 and hives Consultations 04/27/23 10:21 ED Decision to Admit Stat 04/28/23 10:48 Consult Gastroenterology Routine Ordered Studies 04/29/23 11:08 MR artis RT wo/w con Routine Hospital Course (1) Diabetes type 1, controlled: (2) Cyclical vomiting: (3) Gastroparesis: (4) Anxiety: (5) IBS (irritable bowel syndrome): Jesus Alberto Diaz is a 22-year-old female with past medical history of type 1 diabetes mellitus, IBS, gastroparesis, cyclic vomiting. She presented to the ED due to severe abdominal pain with sensation of "twisting"/"wringing out" of her abdomen as well as 3 days of nausea/vomiting/diarrhea. Hyponatremia -Na 124 on admission, suspect secondary to GI losses. No history of SIADH -Received 1L NSS in ED -Continue with 2L NSS @ 100mL/h -Recheck BMP in AM -sodium improved Nausea/Vomiting, Abdominal Pain Due to Suspected Cyclic Vomiting -Zofran 4mg IV q6h PRN for breakthrough nausea -Received Benadryl, Morphine in ED with some improvement of abdominal pain -EGD 03/03 showed signs of gastritis, biopsy negative for h. pylori -Continue home Pepcid, Protonix IV -Never formally diagnosed with cyclic vomiting syndrome, encourage cessation of marijuana use -Consider trailing capsicin cream -Patient states she has used marijuana about a week ago, but has stopped. Unsure if this is true, her UDS remains positive for marijuana, though this could stay in the urine for 30 days. -consulted GI: appreciate input Hypomagnesemia, Hypokalemia -Mag 1.6, will order mag sulfate 2g -Potassium 3.2, received KCl in ED. -Repeat BMP in AM, will monitor on telemetry Type I Diabetes Mellitus -Home glargine 12 units qam, will continue -16 units short acting insulin TID at home, adjusted to sliding scale insulin while admitted -A1C in January 7.2% -Glycemic consult placed Gastroparesis -Recently stopped Linzess -Continue buspar Depression and Anxiety, chronic -Continue home buspar, duloxetine DVT Prophylaxis: Early ambulation Diet: Clear liquids Code Status: Full Code Disposition: Admit to Med-Tele Discharge Plan Discharge Items Patient Disposition: Home - Self-Care Reason For Visit: HYPONATREMIA Discharge Diagnosis: hyponatremia Activity: Resume your previous activity Non-emergency contact: Primary Care Provider Call non-emergency contact if: you have any medication questions Follow-up/Referrals: Iraida Mayorga MD [Primary Care Provider] - 05/08/23 3:00 pm (APPT. WITH Sofia HUTCHINS PA-C) Diet: Carb Count or DM1 and Low Fiber Addtl Attending Provider Instructions: Continue to abstain from Marijuana. Please continue the medications as stated below. Followup with your PCP in 1-2 weeks. Pending Studies at Discharge: No Stand-Alone Forms: [facility] [employer], Work/School Release, Smoking Cessation Medications and DC Order Prescriptions: New metoclopramide HCl [Reglan] 5 mg tablet 5 mg PO ACHS Qty: 120 0RF pantoprazole 40 mg tablet,delayed release (DR/EC) 40 mg PO BID Qty: 60 0RF Continued ondansetron 4 mg tablet,disintegrating 4 mg PO TID PRN (Reason: NAUSEA/VOMITING) Qty: 90 3RF Baqsimi 3 mg/actuation spray,non-aerosol 3 mg intranasal ONCE PRN (Reason: hypoglycemia) Qty: 2 5RF (DME) Ketostix Strip See Rx Instructions miscellaneous .MEDSUPPLY Qty: 50 5RF Rx Instructions: Check if blood sugars are high (DME) Dexcom G6 Sensor Device See Rx Instructions .Route Qty: 9 3RF Rx Instructions: Change every 10 days (DME) Dexcom G6 Transmitter Device See Rx Instructions .Route Qty: 1 3RF Rx Instructions: Change every 90 days insulin aspart U-100 [Novolog FlexPen U-100 Insulin] 100 unit/mL (3 mL) insulin pen 16 unit subcut TID MDD 48 units Qty: 15 5RF Patient Comments: per sliding scale with carb coverage Rx Instructions: To be used as a scale to bring down a high blood sugar loratadine 10 mg tablet 10 mg PO DAILY PRN (Reason: allergy symptoms) Qty: 90 3RF levonorgestrel-ethinyl estrad [Sronyx] 0.1-20 mg-mcg tablet 1 tab PO QAM Qty: 84 3RF (DME) Dexcom G6 Rag Sorter Misc See Rx Instructions .Route Qty: 1 0RF Rx Instructions: Use As directed (DME) pen needle, diabetic [BD Ultra-Fine Short Pen Needle] 31 gauge x 5/16" needle See Rx Instructions .Route Qty: 400 3RF Rx Instructions: Change and use new pen needle 4x a day (DME) lancets [OneTouch Delica Lancets] 33 gauge misc See Rx Instructions .Route Rx Instructions: Test once daily PRN (DME) OneTouch Verio test strips Strip See Rx Instructions .Route Qty: 100 3RF Rx Instructions: Test once daily as needed cholecalciferol (vitamin D3) 625 mcg (25,000 unit) capsule 25,000 unit PO WK Rx Instructions: TAKES ON THURSDAYS alum-mag hydroxide-simeth 200-200-20 mg/5 mL Suspension 10 ml PO DIRECTED PRN (Reason: Gi Upset) Novolin R FlexPen 100 unit/mL (3 mL) Insulin Pen 15 unit SUBCUT QAM Hold Instructions: Currently not using magnesium 250 mg tablet 250 mg PO QAM duloxetine 60 mg capsule,delayed release(DR/EC) 60 mg PO QAM Medical Marijauna 1 dose inhalation UD PRN (Reason: Abdominal Pain) insulin glargine [Lantus Solostar U-100 Insulin] 100 unit/mL (3 mL) insulin pen 12 unit subcut QAM buspirone 10 mg tablet 10 mg PO BID PRN (Reason: Anxiety) sucralfate [Carafate] 100 mg/mL suspension 10 ml PO QID PRN (Reason: as directed) Patient Comments: uses prn only Rx Instructions: swish in mouth and swallow; use after food/drink: May substitute tablets as a slurry. etodolac 200 mg capsule 200 mg PO Q12H PRN (Reason: pain) Qty: 14 0RF Changed famotidine 40 mg tablet 40 mg PO BID Qty: 60 0RF Discontinued pantoprazole 40 mg tablet,delayed release (DR/EC) 40 mg PO BID Qty: 20 2RF Discharge Orders: Discharge Order (Routine); Ordered 04/29/23 Ordered By: Tapan Rodrigues Admission Data Admit Date/Time: 04/27/23 11:35 Attending Provider: Tapan Rodrigues Admit Provider: Krissy Gama Primary Care Provider: Iraida Mayorga Other Providers: Douglas Muñoz ; Lupe Sanches ; Horace Baugh ; Sakshi Morales ; Rebecca Braden ; Delisa Ayala ; Kelly Kunz ; Bimal Watkins ; Jaguar Mcgarry ; Javid Buchanan ; Anthony Ritter ; Robby Prajapati ; Yelena Currie ; Iris Gauthier ; Tanisha Garland ; Jaqui Smith ; Armond Grady ; Javier Munoz ; Kade Pemberton ; aWnda Lucas ; Josiah Chavira Jr Other Interventions: Discharge Summary Assessment (RN) Last Done: 04/29/23 18:18 Coding Diagnoses Diabetes type 1, controlled E10.9 Cyclical vomiting R11.15 Gastroparesis K31.84 Anxiety F41.9 IBS (irritable bowel syndrome) K58.9
[2023-04-30] MEDS ORDERED: LANTUS PER UNIT CHARGE SC SCH (09:00)
== END 2023-04-29 19:00 | disposition home or self-care (01) | DRG 394 ==
LOC: ED 07:55 → SUATTDRO 11:35 → EDINP 11:35 → 2N 12:16

== ENCOUNTER 2024-01-05 17:50 | Inpatient (IN) ==
--- NOTE | 2024-01-05 18:22 | ED Triage Note ---
Date of Service January 05, 2024 Provider in Triage Author: Ros Tovar History of Present Illness This patient was briefly evaluated while in triage. An abbreviated physical exam was performed. This patient is a 23-year-old Female who presents to the ED for evaluation of left foot pain. Notes DM and had foot evaluation w PCP yesterday. Callus to lateral foot for months, developed blister Thursday. Started on Amoxicillin yesterday. Denies fever/chills, n/v. No trauma to foot. Pain with ambulation. Physical Exam Constitutional: alert and oriented x3. no acute distress. HEENT: normocephalic, atraumatic. normal conjunctiva.PERRLA. EOM's grossly intact. Respiratory: equal chest rise. normal respiratory effort, no accessory muscle use. Cardiovascular: regular rate and rhythm. MSK: moves all 4 extremities spontaneously. Callus L lateral foot. No surrounding erythema Psych:appropriate mood and affect. Initial orders for labs and / or imaging were placed and patient was placed in the waiting area until a bed is available. Please see further documentation for the full ED course.
--- NOTE | 2024-01-05 20:18 | Emergency Department Note ---
ED Provider Note History of Present Illness Chief Complaint: Foot Injury/Pain Stated Complaint: L FOOT PAIN Time Seen by Provider: 01/05/24 20:16 This is a 23-year-old female with history of type 1 diabetes, diabetic neuropathy, who presents to the emergency department with worsening pain, redness, and swelling in her left foot extending into her leg. She also describes a large blister on the side of her foot. She initially noticed symptoms developing over the past 1 to 2 weeks, but the symptoms have progressively worsened. She saw her primary care provider yesterday who prescribed her Augmentin and ordered outpatient x-rays. Patient states that the symptoms are now worse. She has a line along the bottom of her foot that is very painful. The redness is traveling up her foot with associated swelling. She endorses chills but no fever. She does admit to some pain in her left groin. Has not taken anything for the pain. She does not have any known history of MRSA. Has never been admitted for any infections. Home Medications Medication Instructions Recorded Confirmed Type blood-glucose meter,continuous #1 ea 05/23/21 12/31/23 Rx (Dexcom G6 Radiologist) lancets 33 gauge (OneTouch Delica 08/01/21 12/31/23 History Lancets) ondansetron 4 mg disintegrating 4 mg PO TID PRN NAUSEA/VOMITING 10/15/21 01/05/24 Rx tablet #90 tabs acetone (urine) test (Ketostix #50 ea 10/19/22 12/31/23 Rx strips) Dexcom G6 Sensor (blood-glucose #9 ea 12/19/22 12/31/23 Rx sensor) Medical Luis Carlos 1 dose inhalation UD PRN Abdominal 02/20/23 01/05/24 History Pain duloxetine 60 mg capsule,delayed 60 mg PO QAM 02/20/23 01/05/24 History release magnesium 250 mg tablet 250 mg PO QAM 02/20/23 01/05/24 History loratadine 10 mg tablet 10 mg PO DAILY PRN allergy 03/04/23 01/05/24 Rx symptoms #90 tabs buspirone 10 mg tablet 10 mg PO BID PRN Anxiety 03/15/23 01/05/24 History sucralfate 100 mg/mL oral 10 ml PO QID PRN as directed 03/15/23 01/05/24 History suspension (Carafate) levonorgestrel-ethinyl estradiol 1 tab PO QAM #84 tabs 03/19/23 01/05/24 Rx 0.1 mg-20 mcg tablet (Sronyx) OneTouch Verio test strips (blood #100 ea 04/06/23 12/31/23 Rx sugar diagnostic) famotidine 40 mg tablet 40 mg PO BID #60 tabs 04/29/23 01/05/24 Rx metoclopramide HCl 5 mg tablet 5 mg PO ACHS #120 tabs 04/29/23 01/05/24 Rx (Reglan) glucagon HCl 1 mg solution for 1 mg subcut Q20M PRN hypoglycemia 05/08/23 01/05/24 Rx injection (Glucagon (HCl) #1 ea Emergency Kit) pen needle, diabetic 31 gauge x #300 ea 05/08/23 12/31/23 Rx 3/16" (BD Ultra-Fine Mini Pen Needle) etodolac 200 mg capsule 200 mg PO Q12H PRN pain 05/18/23 01/05/24 History Dexcom G6 Transmitter #1 ea 05/27/23 12/31/23 Rx (blood-glucose transmitter) insulin pump cart,automated,BT #10 ea 05/28/23 12/31/23 Rx (Omnipod 5 G6 Pods (Gen 5) subcutaneous cartridge) insulin pump cartridge,automated #1 ea 05/28/23 12/31/23 Rx dose,BT with controller subcutaneous (Omnipod 5 G6 Intro Kit (Gen 5) subcutaneous cartridge with controller) insulin aspart U-100 100 unit/mL 0 unit continuous subcutaneous 06/21/23 01/05/24 History subcutaneous solution (Novolog infusion TIDM U-100 Insulin aspart) aluminum-mag hydroxide-simethicone 10 ml PO DIRECTED PRN Gi Upset 07/10/23 01/05/24 History 200 mg-200 mg-20 mg/5 mL oral susp insulin aspart U-100 100 unit/mL See Rx Instructions subcut TIDM 01/01/24 01/05/24 Rx (3 mL) subcutaneous pen (Novolog #15 mL FlexPen U-100 Insulin aspart) amoxicillin 875 mg-potassium 1 tab PO BID 10 days #20 tabs 01/04/24 01/05/24 Rx clavulanate 125 mg tablet lactulose 10 gram/15 mL oral 10 g PO DAILY PRN NEEDED PER PT 01/04/24 01/05/24 History solution Allergies Allergy/AdvReac Type Severity Reaction Status Date / Time Ladmeghan Bugjackie Allergy Severe Swelling Uncoded 01/05/24 21:36 and hives Past Med/Surg History Medical History Metatarsal fracture Insomnia Seizure 11/2021>MEDICATION INDUCED Surgical History H/O pyloroplasty 04/2022 AT [facility] History of tonsillectomy and adenoidectomy S/P laparoscopy History of colonoscopy History of esophagogastroduodenoscopy (EGD) [place] teeth removed History of ear surgery LEFT EAR S/P INFECTION FROM EARING History of myringotomy H/O eye surgery LASER SURGERY RT/LEFT Family History Mother Family history of diabetes mellitus Grandmother (Maternal) Family history of diabetes mellitus Other Breast cancer Myocardial infarction No family history of adverse response to anesthesia Ovarian cancer Prostate cancer Denies family history of Colorectal cancer Social History Smoking Status: Current every day smoker Tobacco Type: E-cigarettes / Vaping Cigarettes Per Day: VAPES DAILY>ADVISED; Second Hand Exposure: No; Do You Dip or Chew Tobacco: No; Hx Alcohol Use: No Hx Substance Use: Yes Prescribed Medications: Marijuana Last Used Substance: Unknown Preferred Language: Armenian Communication Ability: Effective 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 Member Required: No Beliefs That Will Affect Care: None marital status: Single Current Living Situation: Parent Current Living Situation Comment: LIVES WITH MOTHER AND FATHER Feels Safe at Home: Yes Dental Care, Regularly: Yes Physical Activity Frequency: 5-6 Times per Week Assistive Devices: None Physical Exam Vital Signs Vital Signs - 24 hr 01/05/24 18:19 01/05/24 20:20 01/05/24 23:42 Temperature 97.3 F L 98.6 F Temperature Source Temporal Artery Scan Oral Pulse Rate 90 Pulse Rate [Right Finger] 110 H 98 H Pulse Rhythm [Right Finger] Regular Regular Pulse Strength [Right Finger] Normal Normal Respiratory Rate 14 18 19 Respiratory Effort / Characteristics Non-Labored Spontaneous Non-Labored Spontaneous Respiratory Depth Normal Normal Respiratory Pattern Regular Regular Blood Pressure 149/87 H Blood Pressure [Right Arm] 152/86 H 116/67 Blood Pressure Mean 107 Blood Pressure Mean [Right Arm] 108 83 Blood Pressure Position [Right Arm] Semi-fowlers Pulse Oximetry 98 98 98 Oxygen Delivery Method Room Air Room Air Room Air Sepsis New/Unexplained Change in Mental Status No Sepsis Action Taken by Nursing No Action Required CONSTITUTIONAL: Well developed, well nourished, wrapped in a blanket with chills, nontoxic EYES: conjunctivae normal, extraocular muscles intact. NECK: Full active range of motion. LYMPHATIC: There is an enlarged left inguinal lymph node, tender to palpation RESPIRATORY: Breathing unlabored and symmetric. Lungs clear to auscultation bilaterally. No wheeze, rales, or rhonchi. CARDIOVASCULAR: Tachycardic rate and regular rhythm. No murmurs, rubs, or gallops. MUSCULOSKELETAL: There is a 3 cm diameter fluctuant purulent blister located on the lateral aspect of the foot. There is surrounding erythema with erythema and edema extending across the dorsum of the foot and toward the ankle. There is a lymphangitic streak located along the plantar aspect of the foot which is tender to palpation. Patient able to move all toes though this causes pain. There is tenderness in the calf and medial thigh. The entire leg is slightly erythematous compared to the contralateral. There is no crepitus. SKIN: [place], warm, dry. NEUROLOGIC: Awake, alert, oriented. No sensory deficits in bilateral toes. PSYCHIATRIC: Appropriate. Normal affect Procedures Abscess I/D Site: foot Side (if applicable): left Sedation/analgesia: none Technique: other (Incised with 18-gauge needle after cleansing with Betadine) Amount of fluid expressed (mL): 5 Irrigation: No Course Administered Medications Discontinued Medications Acetaminophen (Acetaminophen 500 Mg Tab) 1,000 mg PO NOW STA Stop: 01/05/24 21:25 Last Admin: 01/05/24 21:38 Dose: 1,000 mg Documented By: CED Sodium Chloride (Nss) 1,000 mls @ 999 mls/hr IV .Q1H1M MARIELLA Stop: 01/05/24 23:30 Last Admin: 01/05/24 23:07 Dose: 999 mls/hr Documented By: AYAAN Vancomycin HCl 1,500 mg/ (Sodium Chloride) 530 mls @ 200 mls/hr IV NOW ONE Stop: 01/06/24 00:03 Last Admin: 01/05/24 22:54 Dose: Not Given Documented By: CED Piperacillin Sod/Tazobactam Sod (Zosyn) 4.5 gm in 100 mls @ 200 mls/hr IV NOW ONE Stop: 01/05/24 22:51 Last Admin: 01/05/24 23:07 Dose: 200 mls/hr Documented By: AYAAN Daptomycin 300 mg/ Syringe 6 mls @ 3 mls/min IV Q24H STA; Protocol Stop: 01/05/24 22:23 Last Admin: 01/05/24 23:07 Dose: 3 mls/min Documented By: AYAAN Medical Decision Making Differential Diagnosis Abscess, cellulitis, lymphangitis, inguinal adenopathy, DVT, superficial thrombophlebitis, sepsis, osteomyelitis, foreign body, necrotizing fasciitis, Laboratory Data 01/05/24 20:22 01/05/24 20:22 Lab Results 01/05/24 01/05/24 Range/Units 20:22 Unknown WBC 16.15 H (4.8-10.8) K/ul RBC 4.44 (4.20-5.40) M/uL Hgb 12.6 (12.0-16.0) g/dl Hct 38.4 (37.0-47.0) % MCV 86.5 (80.0-100.0) fL MCH 28.4 (25.0-34.0) pg MCHC 32.8 (32.0-36.0) g/dL RDW Std Deviation 42.3 (36.4-46.3) fL RDW Coeff of Mil 13.4 (11.5-14.5) % Plt Count 273 (130-400) K/uL MPV 11.3 (9.4-12.4) fL Immature Gran % (Auto) 0.6 % Neut % (Auto) 75.2 % Lymph % (Auto) 13.1 % [place] % (Auto) 9.0 % Eos % (Auto) 1.8 % Baso % (Auto) 0.3 % Neut # (Auto) 12.15 H (1.40-6.50) K/uL Lymph # (Auto) 2.12 (1.20-3.40) K/uL [place] # (Auto) 1.45 H (0.11-0.59) K/uL Eos # (Auto) 0.29 (0.00-0.50) K/uL Baso # (Auto) 0.05 (0.00-0.20) K/uL Immature Gran # (Auto) 0.09 (0.01-0.20) K/uL ESR 33 H (0-20) mm/hr Sodium 140 (136-145) mmol/L Potassium 3.8 (3.5-5.1) mmol/L Chloride 105 (98-107) mmol/L Carbon Dioxide 27 (21-32) mmol/L Anion Gap 8 (3-11) BUN 12 (6-23) mg/dl Creatinine 0.71 (0.6-1.2) mg/dl Est Cr Clr Drug Dosing 136.4 ml/min Est GFR ( Amer) 138.2 ml/min Est GFR (Non-Af Amer) 119.2 ml/min BUN/Creatinine Ratio 16.9 (10-20) Glucose 112 H (70-99(Fasting)) mg/dl Lactate 0.7 (0.4-2.0) mmol/L Calcium 9.7 (8.6-10.3) mg/dl Total Bilirubin 0.4 (0.2-1.0) mg/dl AST 38 (13-39) U/L ALT 49 (7-52) U/L Alkaline Phosphatase 72 (34-104) U/L C-Reactive Protein 1.96 H (0-0.5) mg/dl Total Protein 7.6 (6.0-8.3) gm/dl Albumin 4.4 (3.4-5.0) gm/dl Globulin 3.2 (2.5-4.0) gm/dl Albumin/Globulin Ratio 1.4 (0.9-2) Procalcitonin < 0.02 (0-0.5) ng/ml HCG, Qual Negative (Negative) Imaging Data Radiologist's Impression: Venous Doppler Study 01/05/24 21:22 Exam(s): US VENOUS LEFT LOWER EXTREMITY EXAM: US Duplex Left Lower Extremity Veins CLINICAL HISTORY: Reason for exam: redness swelling to foot into medial leg. TECHNIQUE: Real-time duplex ultrasound scan of the left lower extremity veins integrating B-mode two-dimensional vascular structure, Doppler spectral analysis, color flow Doppler imaging and compression. COMPARISON: No relevant prior studies available. FINDINGS: Deep veins: Unremarkable. No DVT in the visualized common femoral, femoral, proximal deep femoral or popliteal veins. The veins demonstrate normal color flow, are normally compressible, with normal phasic flow and/or augmentation response. Superficial veins: Unremarkable. No thrombus in the visualized great saphenous vein. Soft tissues: No acute findings. No popliteal cyst. Lymph nodes: Enlarged lymph node in the left groin measuring 1.1 cm short axis diameter. IMPRESSION: No evidence of DVT in the left lower extremity. Electronically signed by: Kal Lima MD 01/05/24 23:28 PM MDM Narrative This is a 23-year-old female with history of diabetes who presents to the emergency department with progressive redness, swelling, and pain to her left foot with an associated blister. Was placed on Augmentin yesterday, symptoms are worsening today. Endorses chills. See above for further details. Patient with a 3 cm diameter fluctuant purulent blister on the lateral aspect of the foot with erythema and edema extending across the entirety of the foot extending onto the ankle. She has a lymphangitic streak located on the plantar aspect of the foot. There is inguinal adenopathy and some tenderness in the calf and thigh. The entire leg is slightly more erythematous than the contralateral. Patient with chills. I rechecked her temperature at bedside and it was 99.3. She is tachycardic with a heart rate of 110. The blister was cleansed with Betadine, incised with an 18-gauge needle expressing a copious amount of purulent discharge. Culture was obtained and sent. IV was inserted and labs were obtained. Patient was given 2 L IV fluids and Tylenol. Labs: There is a leukocytosis of 16.15. ESR elevated at 33. No electrolyte disturbances. CRP elevated 1.96. Serum negative. Procalcitonin negative. She is not . An x-ray of the left foot was obtained and initially interpreted by myself demonstrating no evidence of osteomyelitis or gas. Ultrasound is negative for DVT. She has an enlarged lymph node in the left groin measuring 1.1 centimeters likely reactive to her infection. Given the patient's comorbidities, worsening on Augmentin, lymphangitic streaking, inguinal adenopathy, leukocytosis with chills, and tachycardia, recommendation was to admit the patient for IV antibiotics and observation. She was agreeable with this plan. Mother also now at the bedside who is also agreeable. Tachycardia improved to 98. Temperature normalized to 98.6. Patient otherwise resting comfortably. I discussed case with Dr. Lima (hospitalist, [facility]) and we reviewed antibiotic recommendations. Patient was given daptomycin and Zosyn. Impression Abscess of left foot, Cellulitis of foot, left, Lymphangitis, Leukocytosis, Inguinal adenopathy Discharge Plan Visit Data Chief Complaint: Foot Injury/Pain Stated Complaint: L FOOT PAIN ED Provider: Anuel Lynn ED Midlevel Provider: Vj Lee Discharge Problem: Abscess of left foot, Cellulitis of foot, left, Lymphangitis, Leukocytosis, Inguinal adenopathy Patient Disposition: Admitted As Inpatient Condition: Fair Forms Stand Alone Forms: [facility] Prescriptions Prescriptions: No Action ondansetron 4 mg tablet,disintegrating 4 mg PO TID PRN (Reason: NAUSEA/VOMITING) Qty: 90 3RF (DME) Ketostix Strip See Rx Instructions miscellaneous .MEDSUPPLY Qty: 50 5RF Rx Instructions: Check if blood sugars are high (DME) Dexcom G6 Sensor Device See Rx Instructions .Route Qty: 9 3RF Rx Instructions: Change every 10 days loratadine 10 mg tablet 10 mg PO DAILY PRN (Reason: allergy symptoms) Qty: 90 3RF levonorgestrel-ethinyl estrad [Sronyx] 0.1-20 mg-mcg tablet 1 tab PO QAM Qty: 84 3RF (DME) Dexcom G6 Transmitter Device See Rx Instructions .Route Qty: 1 3RF Rx Instructions: Change every 90 days insulin aspart U-100 [Novolog FlexPen U-100 Insulin] 100 unit/mL (3 mL) insulin pen See Rx Instructions subcut TIDM MDD 15 units Qty: 15 5RF Rx Instructions: subcutaneously three times daily with meals; 1 UNIT:30 CARBS. NOT USING PUMP AT THIS TIME. To be used as a scale to bring down a high blood sugar (DME) Dexcom G6 Radiologist Misc See Rx Instructions .Route Qty: 1 0RF Rx Instructions: Use As directed (DME) pen needle, diabetic [BD Ultra-Fine Mini Pen Needle] 31 gauge x 3/16" needle See Rx Instructions .Route Qty: 300 3RF Rx Instructions: Inject insulin three times daily glucagon HCl [Glucagon (HCl) Emergency Kit] 1 mg recon soln 1 mg subcut Q20M PRN (Reason: hypoglycemia) Qty: 1 3RF Rx Instructions: until target blood sugar attained etodolac 200 mg capsule 200 mg PO Q12H PRN (Reason: pain) (DME) lancets [OneTouch Delica Lancets] 33 gauge misc See Rx Instructions .Route Rx Instructions: Test once daily PRN (DME) OneTouch Verio test strips Strip See Rx Instructions .Route Qty: 100 3RF Rx Instructions: Test once daily as needed (DME) Omnipod 5 G6 Intro Kit (Gen 5) Cartridge See Rx Instructions .Route Qty: 1 0RF Rx Instructions: As directed (DME) Omnipod 5 G6 Pods (Gen 5) Cartridge See Rx Instructions .Route Qty: 10 5RF Rx Instructions: As directed lactulose 10 gram/15 mL solution 10 g PO DAILY PRN (Reason: NEEDED PER PT) amoxicillin-pot clavulanate 875-125 mg tablet 1 tab PO BID 10 Days Qty: 20 0RF Rx Instructions: STARTED 01/04/24 FOR 10 DAYS metoclopramide HCl [Reglan] 5 mg tablet 5 mg PO ACHS Qty: 120 0RF famotidine 40 mg tablet 40 mg PO BID Qty: 60 0RF insulin aspart U-100 [Novolog U-100 Insulin aspart] 100 unit/mL solution 0 unit continuous subcutaneous infusion TIDM Rx Instructions: PUMP NOT IN USE AT THIS TIME. To be used in an insulin pump alum-mag hydroxide-simeth 200-200-20 mg/5 mL suspension 10 ml PO DIRECTED PRN (Reason: Gi Upset) magnesium 250 mg tablet 250 mg PO QAM duloxetine 60 mg capsule,delayed release(DR/EC) 60 mg PO QAM Medical Marijauna 1 dose inhalation UD PRN (Reason: Abdominal Pain) buspirone 10 mg tablet 10 mg PO BID PRN (Reason: Anxiety) sucralfate [Carafate] 100 mg/mL suspension 10 ml PO QID PRN (Reason: as directed) Patient Comments: uses prn only Rx Instructions: swish in mouth and swallow; use after food/drink: May substitute tablets as a slurry. Referrals Referrals: Iraida Mayorga MD [Primary Care Provider] - Discharge Problem: Leukocytosis Qualifiers: Leukocytosis type: unspecified Qualified Code(s): D72.829 - Elevated white blood cell count, unspecified
[2024-01-05 21:01] LABS: Basophils # (auto) 0.05 K/uL (0.00-0.20); Basophils % (auto) 0.3 %; Eosinophils # (auto) 0.29 K/uL (0.00-0.50); Eosinophils % (auto) 1.8 %; Hematocrit (blood only) 38.4 % (37.0-47.0); Hemoglobin 12.6 g/dl (12.0-16.0); Immature Granulocytes # (auto) 0.09 K/uL (0.01-0.20); Immature Granulocytes % (auto) 0.6 %; Lymphocytes # (auto) 2.12 K/uL (1.20-3.40); Lymphocytes % (auto) 13.1 %; Mean Corpuscular Hemoglobin 28.4 pg (25.0-34.0); Mean Corpuscular Hgb Conc 32.8 g/dL (32.0-36.0); Mean Corpuscular Volume 86.5 fL (80.0-100.0); Mean Platelet Volume 11.3 fL (9.4-12.4); Monocytes # (auto) 1.45 K/uL (0.11-0.59); Neutrophils # (auto) 12.15 K/uL (1.40-6.50); Neutrophils % (auto) 75.2 %; Platelet Count 273 K/uL (130-400); RDW Coefficient of Variation 13.4 % (11.5-14.5); RDW Standard Deviation 42.3 fL (36.4-46.3); Red Blood Count 4.44 M/uL (4.20-5.40); White Blood Count 16.15 K/ul (4.8-10.8)
[2024-01-05 21:21] LABS: Albumin Globulin Ratio 1.4 (0.9-2); Albumin Level 4.4 gm/dl (3.4-5.0); BUN Creatinine Ratio 16.9 (10-20); Bilirubin,Total 0.4 mg/dl (0.2-1.0); Calcium 9.7 mg/dl (8.6-10.3); Creatinine Clr Calc Pharmacy 136.4 ml/min; Est GFR (African American) 138.2 ml/min; Est GFR (Non-African American) 119.2 ml/min; Globulin 3.2 gm/dl (2.5-4.0); Potassium 3.8 mmol/L (3.5-5.1); Total Protein 7.6 gm/dl (6.0-8.3)
[2024-01-05] MEDS ORDERED: VANCOMYCIN CONSULT ACTIVE PRN (21:25)
[2024-01-05] MEDS: ACETAMINOPHEN 500 MG TAB PO STA (21:38)
[2024-01-05 22:26] LABS: Pregnancy Test, Serum Negative (Negative)
[2024-01-05 22:36] LABS: C Reactive Protein 1.96 mg/dl (0-0.5)
[2024-01-05] MEDS: VANCOMYCIN HCL 1,500 MG in SODIUM CHLORIDE 0.9% 500 ML IV ONE (22:54)
[2024-01-05] MEDS: DAPTOmycin 300 MG in SYRINGE 0 ML IV STA (23:07)
[2024-01-05] MEDS: PIPERACILLIN/TAZOBACTAM 4.5 GM/100 ML BAG IV ONE (23:07)
[2024-01-05] MEDS: SODIUM CHLORIDE 0.9% 1,000 ML IV SCH (23:07)
--- NOTE | 2024-01-05 23:23 | History & Physical Report ---
Date of Service January 05, 2024 Assessment & Plan (1) Abscess of left foot: Plan: 23yo female with history of DM-Type I presenting with left foot abscess s/p incision and drainage performed in the ER. Culture was sent. Patient technically meets sepsis criteria - present on admission with SIRS 2/4 secondary to foot infection - leukocytosis, elevated HR of 110. She has received 2L IV crystalloid thus far -Admit to medical -Elevation of ESR and CRP raises concern for possible osteomyelitis. Will obtain MRI -Broad spectrum antibiotics with Daptomycin and Zosyn -Continue IVF with LR at 80mL/hr x 1L -Joshua area of redness daily -Patient with tender left inguinal LAD - likely reactive to present infection of left foot. She does report a fairly recent cat scratch. If symptoms persist or worsen would consider sending antibodies for bartonella henslae to rule out cat scratch disease. -Tylenol PRN pain or fever (2) Diabetes type 1, controlled: Plan: Last Hgb A1C=7.9 on 12/28/23. Patient follows with Endocrinology - last seen on 12/31/23. Per review of most recent visit, Dr. Purvis comments that patient does not have simple Type I DM or Type II DM. On recent testing there has been discrepancy on insulin and C-peptide levels which possibly suggests genetic defect. He has suggested that patient proceed with genetic testing. Patient was previously on an insulin pump for a very short time but currently is using pens. -Continue Novolog sliding scale - goal blood sugar 110 - 140 -Continue home Lantus dosing of 1 (one) unit qHS (3) Anxiety and depression: Plan: Chronic -Continue home Buspirone PRN -Continue Duloxetine (4) Gastroparesis: Plan: Chronic. Patient with intermittent nausea and vomiting -Continue Reglan at home dose -Continue Pepcid 40mg po BID -Continue Sucralfate PRN -Zofran PRN History of Present Illness Chief Complaint: left foot infection Primary Care Provider: Iraida Mayorga MD Sonia Diaz is a 23yo female with history of DM Type I since age 11 complicated by peripheral neuropathy, retinopathy and gastroparesis presenting with infection of left foot. Patient reports having a callus on the lateral portion of her left foot approximately 2 weeks ago. On 12/31/23 she had an appointment with Dr. Purvis of Endocrinology who noted a hemorrhagic callus sub-MTH 5. He referred patient to the diabetic foot clinic. On 01/04/24 patient noted that the blister on her foot got larger, more fluid filled and fluctuant and she developed some pain and swelling in her root. Her pain persisted throughout the day as did the redness and streaking up her leg. She was seen by Shell Wallace PA-C on 01/04/24 and prescribed Augmentin. She has taken two doses of the Augmentin without difficulty but reports ongoing redness, pain and swelling. She has severe pain and streaking on the plantar surface of her left foot as well as pain in the left inguinal lymph node chain. Patient presents to the ER today with ongoing pain, redness and swelling. Noted to have a hemorrhagic blister on the lateral portion of her left foot. A bedside I&D was performed by ER staff with expression of purulent fluid. Patient reports subjective fevers and chills as well as intermittent nausea which she attributes to her gastroparesis ER Course: Daptomycin Zosyn Allergies Allergy/AdvReac Type Severity Reaction Status Date / Time Lady Vance Allergy Severe Swelling Uncoded 01/05/24 21:36 and hives Home Medications Medication Instructions Recorded Confirmed Type blood-glucose meter,continuous #1 ea 05/23/21 12/31/23 Rx (Dexcom G6 Health Administrator) lancets 33 gauge (OneTouch Delica 08/01/21 12/31/23 History Lancets) ondansetron 4 mg disintegrating 4 mg PO TID PRN NAUSEA/VOMITING 10/15/21 01/05/24 Rx tablet #90 tabs acetone (urine) test (Ketostix #50 ea 10/19/22 12/31/23 Rx strips) Dexcom G6 Sensor (blood-glucose #9 ea 12/19/22 12/31/23 Rx sensor) Medical Mariclaudeuna 1 dose inhalation UD PRN Abdominal 02/20/23 01/05/24 History Pain duloxetine 60 mg capsule,delayed 60 mg PO QAM 02/20/23 01/05/24 History release magnesium 250 mg tablet 250 mg PO QAM 02/20/23 01/05/24 History loratadine 10 mg tablet 10 mg PO DAILY PRN allergy 03/04/23 01/05/24 Rx symptoms #90 tabs buspirone 10 mg tablet 10 mg PO BID PRN Anxiety 03/15/23 01/05/24 History sucralfate 100 mg/mL oral 10 ml PO QID PRN as directed 03/15/23 01/05/24 History suspension (Carafate) levonorgestrel-ethinyl estradiol 1 tab PO QAM #84 tabs 03/19/23 01/05/24 Rx 0.1 mg-20 mcg tablet (Sronyx) OneTouch Verio test strips (blood #100 ea 04/06/23 12/31/23 Rx sugar diagnostic) famotidine 40 mg tablet 40 mg PO BID #60 tabs 04/29/23 01/05/24 Rx metoclopramide HCl 5 mg tablet 5 mg PO ACHS #120 tabs 04/29/23 01/05/24 Rx (Reglan) glucagon HCl 1 mg solution for 1 mg subcut Q20M PRN hypoglycemia 05/08/23 01/05/24 Rx injection (Glucagon (HCl) #1 ea Emergency Kit) pen needle, diabetic 31 gauge x #300 ea 05/08/23 12/31/23 Rx 3/16" (BD Ultra-Fine Mini Pen Needle) etodolac 200 mg capsule 200 mg PO Q12H PRN pain 05/18/23 01/05/24 History Dexcom G6 Transmitter #1 ea 05/27/23 12/31/23 Rx (blood-glucose transmitter) insulin pump cart,automated,BT #10 ea 05/28/23 12/31/23 Rx (Omnipod 5 G6 Pods (Gen 5) subcutaneous cartridge) insulin pump cartridge,automated #1 ea 05/28/23 12/31/23 Rx dose,BT with controller subcutaneous (Omnipod 5 G6 Intro Kit (Gen 5) subcutaneous cartridge with controller) insulin aspart U-100 100 unit/mL 0 unit continuous subcutaneous 06/21/23 01/05/24 History subcutaneous solution (Novolog infusion TIDM U-100 Insulin aspart) aluminum-mag hydroxide-simethicone 10 ml PO DIRECTED PRN Gi Upset 07/10/23 01/05/24 History 200 mg-200 mg-20 mg/5 mL oral susp insulin aspart U-100 100 unit/mL See Rx Instructions subcut TIDM 01/01/24 01/05/24 Rx (3 mL) subcutaneous pen (Novolog #15 mL FlexPen U-100 Insulin aspart) amoxicillin 875 mg-potassium 1 tab PO BID 10 days #20 tabs 01/04/24 01/05/24 Rx clavulanate 125 mg tablet lactulose 10 gram/15 mL oral 10 g PO DAILY PRN NEEDED PER PT 01/04/24 01/05/24 History solution Past Med/Surg History Medical History Metatarsal fracture Insomnia Seizure 11/2021>MEDICATION INDUCED Surgical History H/O pyloroplasty 04/2022 AT [facility] History of tonsillectomy and adenoidectomy S/P laparoscopy History of colonoscopy History of esophagogastroduodenoscopy (EGD) Sprakers teeth removed History of ear surgery LEFT EAR S/P INFECTION FROM EARING History of myringotomy H/O eye surgery LASER SURGERY RT/LEFT Family History Mother Family history of diabetes mellitus Grandmother (Maternal) Family history of diabetes mellitus Other Breast cancer Myocardial infarction No family history of adverse response to anesthesia Ovarian cancer Prostate cancer Denies family history of Colorectal cancer Social History Smoking Status: Current every day smoker Tobacco Type: E-cigarettes / Vaping Cigarettes Per Day: VAPES DAILY>ADVISED; Second Hand Exposure: No; Do You Dip or Chew Tobacco: No; Hx Alcohol Use: No Hx Substance Use: Yes Prescribed Medications: Marijuana Last Used Substance: Unknown Preferred Language: Australian Communication Ability: Effective Secretary Book Keeper Required: No Beliefs That Will Affect Care: None marital status: Single Current Living Situation: Parent Current Living Situation Comment: LIVES WITH MOTHER AND FATHER Feels Safe at Home: Yes Dental Care, Regularly: Yes Physical Activity Frequency: 5-6 Times per Week Assistive Devices: None Review of Systems Review of Systems: All systems reviewed & are unremarkable except as noted in HPI & below Physical Exam Physical Exam: General: patient resting comfortably, NAD, non-toxic in appearance, AA&O x 4 HEENT: NC/AT, PERRL, EOMI, anicteric sclera, conjunctiva without injection, external ear normal to inspection and nontender, nares patent, moist mucus membranes, dentition intact, no oropharyngeal lesions, neck supple, trachea midline, no LAD, no thyromegaly, no JVD Heart: +S1/S2, regular, no m/r/g Lungs: equal air entry bilaterally, no rales/rhonchi/wheezes Abd: +BS, soft, NT/ND, no masses/organomegaly/ascites Ext: warm, 2+ pulses in UE/LE bilaterally, no clubbing/cyanosis or edema hemorrhagic blister left lateral foot s/p I&D, still with small amount of purulent drainage, some redness and mild edema of left foot with streaking up lateral leg. Tenderness of left inguinal lymph nodes. Healing scratch on left anterior thigh which patient reports is from a cat scratch Neuro: nonfocal, patient AA&O x 4, speech intact, no facial droop, moving all extremities on command with equal strength 5/5 Results & Data Results & Data Vital Signs (Past 12 Hours) Vital Signs Temp Pulse Pulse Resp BP BP Pulse Ox 01/05/24 20:20 110 H 18 152/86 H 98 01/05/24 18:19 36.3 C L 90 14 149/87 H 98 O2 Del Method 01/05/24 20:20 Room Air 01/05/24 18:19 Room Air Laboratory Results Laboratory Results WBC 16.15 K/ul (4.8-10.8) H 01/05/24 20:22 RBC 4.44 M/uL (4.20-5.40) 01/05/24 20:22 Hgb 12.6 g/dl (12.0-16.0) 01/05/24 20:22 Hct 38.4 % (37.0-47.0) 01/05/24 20:22 MCV 86.5 fL (80.0-100.0) 01/05/24 20: MCH 28.4 pg (25.0-34.0) 01/05/24 20: MCHC 32.8 g/dL (32.0-36.0) 01/05/24 20:22 RDW Std Deviation 42.3 fL (36.4-46.3) 01/05/24 20: RDW Coeff of Mil 13.4 % (11.5-14.5) 01/05/24 20:22 Plt Count 273 K/uL (130-400) 01/05/24 20:22 MPV 11.3 fL (9.4-12.4) 01/05/24 20:22 Immature Gran % (Auto) 0.6 % 01/05/24 20:22 Neut % (Auto) 75.2 % 01/05/24 20:22 Lymph % (Auto) 13.1 % 01/05/24 20:22 Lenoir % (Auto) 9.0 % 01/05/24 20:22 Eos % (Auto) 1.8 % 01/05/24 20:22 Baso % (Auto) 0.3 % 01/05/24 20:22 Neut # (Auto) 12.15 K/uL (1.40-6.50) H 01/05/24 20:22 Lymph # (Auto) 2.12 K/uL (1.20-3.40) 01/05/24 20:22 Lenoir # (Auto) 1.45 K/uL (0.11-0.59) H 01/05/24 20:22 Eos # (Auto) 0.29 K/uL (0.00-0.50) 01/05/24 20:22 Baso # (Auto) 0.05 K/uL (0.00-0.20) 01/05/24 20:22 Immature Gran # (Auto) 0.09 K/uL (0.01-0.20) 01/05/24 20:22 ESR 33 mm/hr (0-20) H 01/05/24 20:22 Sodium 140 mmol/L (136-145) 01/05/24 20:22 Potassium 3.8 mmol/L (3.5-5.1) 01/05/24 20:22 Chloride 105 mmol/L (98-107) 01/05/24 20:22 Carbon Dioxide 27 mmol/L (21-32) 01/05/24 20:22 Anion Gap 8 (3-11) 01/05/24 20:22 BUN 12 mg/dl (6-23) 01/05/24 20:22 Creatinine 0.71 mg/dl (0.6-1.2) 01/05/24 20:22 Est Cr Clr Drug Dosing 136.4 ml/min 01/05/24 20:22 Est GFR ( Amer) 138.2 ml/min 01/05/24 20:22 Est GFR (Non-Af Amer) 119.2 ml/min 01/05/24 20:22 BUN/Creatinine Ratio 16.9 (10-20) 01/05/24 20:22 Glucose 112 mg/dl (70-99(Fasting)) H 01/05/24 20:22 Lactate 0.7 mmol/L (0.4-2.0) 01/05/24 Unknown Calcium 9.7 mg/dl (8.6-10.3) 01/05/24 20:22 Total Bilirubin 0.4 mg/dl (0.2-1.0) 01/05/24 20:22 AST 38 U/L (13-39) 01/05/24 20:22 ALT 49 U/L (7-52) 01/05/24 20:22 Alkaline Phosphatase 72 U/L (34-104) 01/05/24 20:22 C-Reactive Protein 1.96 mg/dl (0-0.5) H 01/05/24 20:22 Total Protein 7.6 gm/dl (6.0-8.3) 01/05/24 20:22 Albumin 4.4 gm/dl (3.4-5.0) 01/05/24 20:22 Globulin 3.2 gm/dl (2.5-4.0) 01/05/24 20:22 Albumin/Globulin Ratio 1.4 (0.9-2) 01/05/24 20:22 Procalcitonin < 0.02 ng/ml (0-0.5) 01/05/24 20:22 HCG, Qual Negative (Negative) 01/05/24 20:22 Impressions Venous Doppler Study 01/05/24 21:22 Exam(s): US VENOUS LEFT LOWER EXTREMITY EXAM: US Duplex Left Lower Extremity Veins CLINICAL HISTORY: Reason for exam: redness swelling to foot into medial leg. TECHNIQUE: Real-time duplex ultrasound scan of the left lower extremity veins integrating B-mode two-dimensional vascular structure, Doppler spectral analysis, color flow Doppler imaging and compression. COMPARISON: No relevant prior studies available. FINDINGS: Deep veins: Unremarkable. No DVT in the visualized common femoral, femoral, proximal deep femoral or popliteal veins. The veins demonstrate normal color flow, are normally compressible, with normal phasic flow and/or augmentation response. Superficial veins: Unremarkable. No thrombus in the visualized great saphenous vein. Soft tissues: No acute findings. No popliteal cyst. Lymph nodes: Enlarged lymph node in the left groin measuring 1.1 cm short axis diameter. IMPRESSION: No evidence of DVT in the left lower extremity. Electronically signed by: Kal Lima MD 01/05/24 23:28 PM Diagnostic Findings X-ray left foot - per my interpretation no obvious fractures, dislocations or evidence of osteomyelitis. Formal read is pending. PG Care Time/CCT Total # of Minutes Spent Total Time Spent with Patient: Total time spent is greater than 50% in coordination of care (as documented) at patient's floor/unit and/or counseling patient: Coding Level of Care Code 18408 INT INP/OBS CARE 3MIN Diagnoses Abscess of left foot L02.612 Diabetes type 1, controlled E10.9 Anxiety and depression F41.9; F32.9 Gastroparesis K31.84
--- NOTE | 2024-01-05 23:29 | Ultrasound Report ---
Exam(s): US VENOUS LEFT LOWER EXTREMITY EXAM: US Duplex Left Lower Extremity Veins CLINICAL HISTORY: Reason for exam: redness swelling to foot into medial leg. TECHNIQUE: Real-time duplex ultrasound scan of the left lower extremity veins integrating B-mode two-dimensional vascular structure, Doppler spectral analysis, color flow Doppler imaging and compression. COMPARISON: No relevant prior studies available. FINDINGS: Deep veins: Unremarkable. No DVT in the visualized common femoral, femoral, proximal deep femoral or popliteal veins. The veins demonstrate normal color flow, are normally compressible, with normal phasic flow and/or augmentation response. Superficial veins: Unremarkable. No thrombus in the visualized great saphenous vein. Soft tissues: No acute findings. No popliteal cyst. Lymph nodes: Enlarged lymph node in the left groin measuring 1.1 cm short axis diameter. IMPRESSION: No evidence of DVT in the left lower extremity. Electronically signed by: Kal Lima MD 01/05/24 23:28 PM
[2024-01-06] MEDS ORDERED: DEXTROSE 50% 50 ML SYRINGE IV PRN (00:50)
[2024-01-06] MEDS ORDERED: GLUCAGON FOR INJ 1 MG VIAL SQ PRN (00:50)
[2024-01-06] MEDS ORDERED: SUCRALFATE 1 GM/10 ML UDC PO PRN (00:50)
[2024-01-06] MEDS ORDERED: busPIRone 5 MG TAB PO PRN (00:50)
[2024-01-06] MEDS ORDERED: CARBOHYDRATES FOR HYPOGLYCEMIA PO PRN (00:50)
[2024-01-06] MEDS ORDERED: ACETAMINOPHEN 325 MG TAB PO PRN (00:50)
[2024-01-06] MEDS ORDERED: GLUCOSE 10 TAB/TUBE PO PRN (00:50)
[2024-01-06] MEDS ORDERED: ONDANSETRON INJ 2 MG/ML 2 ML VIAL IV PRN (00:50)
[2024-01-06] MEDS ORDERED: GLUCOSE 40% GEL 15 GM TUBE PO PRN (00:50)
[2024-01-06] MEDS: LACTATED RINGER'S 1,000 ML IV SCH (01:44)
[2024-01-06] MEDS: GADOBUTROL 65ML VIAL IV ONE (03:47)
[2024-01-06] MEDS: PIPERACILLIN/TAZOBACTAM 4.5 GM in DEXTROSE 5% MINI-B 100 ML IV SCH (04:32)
[2024-01-06 06:30] LABS: Hematocrit (blood only) 31.5 % (37.0-47.0); Hemoglobin 10.3 g/dl (12.0-16.0); Mean Corpuscular Hemoglobin 28.5 pg (25.0-34.0); Mean Corpuscular Hgb Conc 32.7 g/dL (32.0-36.0); Mean Corpuscular Volume 87.3 fL (80.0-100.0); Mean Platelet Volume 11.6 fL (9.4-12.4); Platelet Count 196 K/uL (130-400); RDW Coefficient of Variation 13.3 % (11.5-14.5); RDW Standard Deviation 43.1 fL (36.4-46.3); Red Blood Count 3.61 M/uL (4.20-5.40); White Blood Count 10.32 K/ul (4.8-10.8)
[2024-01-06 06:48] LABS: Anion Gap 5 (3-11); BUN Creatinine Ratio 18.9 (10-20); Blood Urea Nitrogen 10 mg/dl (6-23); Calcium 8.3 mg/dl (8.6-10.3); Carbon Dioxide 27 mmol/L (21-32); Chloride 104 mmol/L (98-107); Creatinine Clr Calc Pharmacy 181.6 ml/min; Est GFR (African American) > 150.0 ml/min; Est GFR (Non-African American) 132.9 ml/min; Glucose 147 mg/dl (70-99(Fasting)); Potassium 3.5 mmol/L (3.5-5.1); Sodium 136 mmol/L (136-145)
--- NOTE | 2024-01-06 07:36 | XRay Report ---
XR foot LT min 3V routine CLINICAL HISTORY: wound L lateral foot COMPARISON: Left foot radiographs July 10, 2023. FINDINGS: Tarsometatarsal joints are intact. Incompletely healed fracture of the distal shaft of the left second metatarsal is noted with extensive callus formation. No bony erosions within the left fo ot are identified to suggest osteomyelitis. There is lateral left forefoot soft tissue swelling. No r adiopaque foreign bodies are identified bipartite medial sesamoid of the left first toe is incidental ly noted. IMPRESSION: 1. No evidence for acute osteomyelitis within the left foot. 2. Lateral left foot soft tissue swelling. 3. Incompletely healed left second metatarsal fracture with extensive callus formation. Continued rad iographic follow-up to ensure expected healing is recommended. ACT 112: Negative or not required by law. Electronically signed by: Travis Hogan M.D. 01/06/2024 7:34 AM
[2024-01-06] MEDS: METOCLOPRAMIDE HCL 5 MG TABLET PO SCH (07:56)
[2024-01-06] MEDS: DULoxetine HCL 60 MG CAP PO SCH (07:56)
[2024-01-06] MEDS: FAMOTIDINE 40 MG TABLET PO SCH (07:56)
[2024-01-06] MEDS: INSULIN ASPART PER UNIT CHARGE SC SCH (07:57)
--- NOTE | 2024-01-06 10:56 | Magnetic Resonance Report ---
Exam(s): MRI LEFT FOOT W/WO Contrast IV Amt: 8cc gadavist ADDENDUM - Added by Raom Gomez MD on 01/06/2024 5:01 AM (-07:00) The impression should also include: IMPRESSION: Subacute fracture of the second metatarsal head, with organized callus formation. Correlate for history of trauma to this location. Refer to radiographs from 01/05/2024. EXAM: MR Left Lower Extremity Without and With Intravenous Contrast, Foot CLINICAL HISTORY: Reason for exam: ?osteomyelitis left foot. TECHNIQUE: Multiplanar magnetic resonance images of the left foot without and with intravenous contrast. CONTRAST: Patient received 8cc gadavist of IV contrast COMPARISON: No relevant prior studies available. FINDINGS: Open wound on the fifth toe, which is limited in evaluation on MRI. Correlate with physical exam/wound care. No edema in the fifth ray to indicate osteomyelitis. Moderate dorsal subcutaneous edema, preferentially involving the midfoot. Suspected blister along the lateral aspect of the fifth toe which measures approximately 3.4 cm anterior posterior. This is only partially included in the [id number]. Subacute fracture of the second metatarsal head, with organized callus formation. Correlate for history of trauma to this location. Refer to radiographs from 01/05/2024. Bipartite medial sesamoid. Mild edema in the anterior extensor tendon musculature and intrinsic foot musculature, correlate for diabetes. IMPRESSION: Open wound on the fifth toe, which is limited in evaluation on MRI. Correlate with physical exam/wound care. No osteomyelitis. Moderate dorsal subcutaneous edema, preferentially involving the midfoot. No drainable soft tissue abscess. Suspected blister along the lateral aspect of the fifth toe which measures approximately 3.4 cm anterior posterior. This is only partially included in the [id number]. Electronically signed by: Ramo Gomez MD 01/06/24 05:01 AM
--- NOTE | 2024-01-06 15:17 | Hospitalist Progress Note ---
Date of Service January 06, 2024 Assessment & Plan (1) Abscess of left foot: Plan: I believe incision and drainage was accomplished January 04 while in the ER. Gram stain reveals gram-positive cocci and final culture results are pending. Left foot MRI scan reveals fracture of the second metatarsal head and associated edema. No definite abscess formation. Podiatry consultation requested. She remains on daptomycin and Zosyn for now. Left lower extremity venous Doppler negative for DVT fortunately. (2) Diabetes type 1, controlled: Plan: Last Hgb A1C=7.9 on 12/28/23. Patient follows with Endocrinology - last seen on 12/31/23. Per review of most recent visit, Dr. Purvis comments that patient does not have simple Type I DM or Type II DM. On recent testing there has been discrepancy on insulin and C-peptide levels which possibly suggests genetic defect. He has suggested that patient proceed with genetic testing. Patient was previously on an insulin pump for a very short time but currently is using pens. -Continue Novolog sliding scale - goal blood sugar 110 - 140. Continue home Lantus dosing of 1 (one) unit qHS (3) Anxiety and depression: Plan: Stable. Continue current medical management (4) Gastroparesis: Plan: Chronic. Patient with intermittent nausea and vomiting. Continue Reglan, Pepcid, sucralfate therapy. Zofran IV as needed Plan Anticipate eventual discharge to home Admission and Anticipated Discharge Date Admission Date: January 05, 2024 Subjective Alert and oriented. Left foot MRI scan reveals a fracture of the second metatarsal head. She also has edema but no definite abscess. Podiatry consultation requested. She remains on daptomycin and Zosyn, day 2. Left lower extremity venous Doppler negative for DVT. Glucose 147 this morning, January 05 Review of Systems 2 Review of Systems: Constitutional-no fever or chills ENT-no blurred vision, no double vision, no epistaxis, no sore throat Respiratory-no cough, no wheezing, no shortness of breath Cardiac-no palpitations, no chest pain, no syncope GI-no nausea, vomiting, diarrhea, melena, hematochezia -no urinary retention, no urinary incontinence, no dysuria, no hematuria Musculoskeletal-no joint pain, no muscle tenderness. Left foot soreness with weightbearing Skin-no bruising, no rashes, no pruritus Neuro-no isolated weakness, no paresthesia Psych-no depression, no anxiety Physical Exam 2 Physical Exam: General-alert and oriented x3, no fever, no chills HEENT-head atraumatic and normocephalic, pupils equal and reactive to light, extraocular muscles intact Neck-no lymphadenopathy or thyromegaly, trachea midline Chest-clear to auscultation. No rales, wheezing or rhonchi Cardiac-regular rate and rhythm, normal S1 and S2 Abdomen-normal bowel sounds, nontender, no hepatosplenomegaly Extremities-left foot appears slightly swollen compared to the right and she does have some discomfort with weightbearing Neuro-cranial nerves II through XII intact, motor and sensory function within normal limits, strength symmetrical, no focal deficits Psych-normal affect, normal mood Results & Data Results & Data Vital Signs (Past 12 Hours) Vital Signs Temp Pulse Resp BP BP Pulse Ox O2 Del Method 01/06/24 15:02 36.6 C 75 16 118/76 99 Room Air 01/06/24 07:29 36.6 C 67 16 99/64 L 96 Room Air Laboratory Results 01/06/24 05:44 01/06/24 05:44 PG Care Time/CCT Total # of Minutes Spent Total Time Spent with Patient: Total time spent is greater than 50% in coordination of care (as documented) at patient's floor/unit and/or counseling patient: Coding Level of Care Code 52099 SUB INP/OBS CARE 3/50MIN Diagnoses Abscess of left foot L02.612 Diabetes type 1, controlled E10.9 Anxiety and depression F41.9; F32.9 Gastroparesis K31.84
[2024-01-06] MEDS: LANTUS PER UNIT CHARGE SQ SCH (20:34)
--- NOTE | 2024-01-06 22:22 | Podiatry Consultation ---
Date of Consultation January 06, 2024 Assessment & Plan (1) Cellulitis of foot, left: (2) Abscess of left foot: (3) Personal history of diabetic foot ulcer: (4) Diabetic autonomic neuropathy associated with type 1 diabetes mellitus: Plan patient was examined and evaluated. We discussed at length etiology and treatment of her left foot abscess formation. This should be drained surgically, given the tense nature of the skin overlying the blister/abscess. Without any underlying significant infection, she can likely be discharged shortly after that as long as there is no extensive underlying disease or pathology. Nuclear Physicist samples of soft tissue will be sent for culture and sensitivity. She will benefit long-term from wound care, depending on the severity of the wound after surgical debridement. I will work on adding this on for surgery tomorrow afternoon. Preoperative orders will be placed. for now, all questions were answered. We look forward to providing this blevins with excellent care while she remains in house. History of Present Illness Reason for Consultation: Left foot abscess/cellulitis Attending Physician: Jose David Newby MD History of Present Illness patient presents to department recently with worsening left foot pain and infection. She states that she is a long-standing type I diabetic and has had foot and ankle infections in the past, notably to the right foot. She was on IV antibiotics for treatment of a bone infection there and was able to save the toe but was concerned that this left foot infection spread so quickly. She states that she had a callus there, on the outside of the left foot which was debrided by her primary care physician. After this, the infection worsened very quickly over the last few days. She was sent to the emergency department for treatment based on the rapid progression of her symptoms. She states that systemically she feels good with well controlled blood sugar and no systemic signs of infection. It was the local redness, pus, and pain that drove her to seek treatment. Since being admitted, she is feeling better but still has these foot concerns. She denies any other recent medical history change. Allergies Allergy/AdvReac Type Severity Reaction Status Date / Time Bugjackie Allergy Severe Swelling Uncoded 01/05/24 21:36 and hives Home Medications Medication Instructions Recorded Confirmed Type blood-glucose meter,continuous #1 ea 05/23/21 12/31/23 Rx (Dexcom G6 Survival Specialist) lancets 33 gauge (OneTouch Delica 08/01/21 12/31/23 History Lancets) ondansetron 4 mg disintegrating 4 mg PO TID PRN NAUSEA/VOMITING 10/15/21 01/05/24 Rx tablet #90 tabs acetone (urine) test (Ketostix #50 ea 10/19/22 12/31/23 Rx strips) Dexcom G6 Sensor (blood-glucose #9 ea 12/19/22 12/31/23 Rx sensor) Medical Marijauna 1 dose inhalation UD PRN Abdominal 02/20/23 01/05/24 History Pain duloxetine 60 mg capsule,delayed 60 mg PO QAM 02/20/23 01/05/24 History release magnesium 250 mg tablet 250 mg PO QAM 02/20/23 01/05/24 History loratadine 10 mg tablet 10 mg PO DAILY PRN allergy 03/04/23 01/05/24 Rx symptoms #90 tabs buspirone 10 mg tablet 10 mg PO BID PRN Anxiety 03/15/23 01/05/24 History sucralfate 100 mg/mL oral 10 ml PO QID PRN as directed 03/15/23 01/05/24 History suspension (Carafate) levonorgestrel-ethinyl estradiol 1 tab PO QAM #84 tabs 03/19/23 01/05/24 Rx 0.1 mg-20 mcg tablet (Sronyx) OneTouch Verio test strips (blood #100 ea 04/06/23 12/31/23 Rx sugar diagnostic) famotidine 40 mg tablet 40 mg PO BID #60 tabs 04/29/23 01/05/24 Rx metoclopramide HCl 5 mg tablet 5 mg PO ACHS #120 tabs 04/29/23 01/05/24 Rx (Reglan) glucagon HCl 1 mg solution for 1 mg subcut Q20M PRN hypoglycemia 05/08/23 01/05/24 Rx injection (Glucagon (HCl) #1 ea Emergency Kit) pen needle, diabetic 31 gauge x #300 ea 05/08/23 12/31/23 Rx 3/16" (BD Ultra-Fine Mini Pen Needle) etodolac 200 mg capsule 200 mg PO Q12H PRN pain 05/18/23 01/05/24 History Dexcom G6 Transmitter #1 ea 05/27/23 12/31/23 Rx (blood-glucose transmitter) insulin pump cart,automated,BT #10 ea 05/28/23 12/31/23 Rx (Omnipod 5 G6 Pods (Gen 5) subcutaneous cartridge) insulin pump cartridge,automated #1 ea 05/28/23 12/31/23 Rx dose,BT with controller subcutaneous (Omnipod 5 G6 Intro Kit (Gen 5) subcutaneous cartridge with controller) insulin aspart U-100 100 unit/mL 0 unit continuous subcutaneous 06/21/23 01/05/24 History subcutaneous solution (Novolog infusion TIDM U-100 Insulin aspart) aluminum-mag hydroxide-simethicone 10 ml PO DIRECTED PRN Gi Upset 07/10/23 01/05/24 History 200 mg-200 mg-20 mg/5 mL oral susp insulin aspart U-100 100 unit/mL See Rx Instructions subcut TIDM 01/01/24 01/05/24 Rx (3 mL) subcutaneous pen (Novolog #15 mL FlexPen U-100 Insulin aspart) amoxicillin 875 mg-potassium 1 tab PO BID 10 days #20 tabs 01/04/24 01/05/24 Rx clavulanate 125 mg tablet lactulose 10 gram/15 mL oral 10 g PO DAILY PRN NEEDED PER PT 01/04/24 01/05/24 History solution Patient History Medical History Metatarsal fracture Insomnia Seizure 11/2021>MEDICATION INDUCED Surgical History H/O pyloroplasty 04/2022 AT [facility] History of tonsillectomy and adenoidectomy S/P laparoscopy History of colonoscopy History of esophagogastroduodenoscopy (EGD) [place] teeth removed History of ear surgery LEFT EAR S/P INFECTION FROM EARING History of myringotomy H/O eye surgery LASER SURGERY RT/LEFT Family History Mother Family history of diabetes mellitus Grandmother (Maternal) Family history of diabetes mellitus Other Breast cancer Myocardial infarction No family history of adverse response to anesthesia Ovarian cancer Prostate cancer Denies family history of Colorectal cancer Social History Smoking Status: Current every day smoker Tobacco Type: E-cigarettes / Vaping Cigarettes Per Day: VAPES DAILY>ADVISED; Second Hand Exposure: No; Do You Dip or Chew Tobacco: No; Hx Alcohol Use: No Hx Substance Use: Yes Prescribed Medications: Marijuana Last Used Substance: Hours (ago) Substance Use Type Other:: prescibed to patient Preferred Language: Kiswahili Communication Ability: Effective Intern Required: No Beliefs That Will Affect Care: None marital status: Single Current Living Situation: Family Current Living Situation Comment: grandmother Feels Safe at Home: Yes Dental Care, Regularly: Yes Physical Activity Frequency: 5-6 Times per Week Assistive Devices: None Review of Systems Review of Systems: All systems reviewed & are unremarkable except as noted in HPI & below Constitutional: no fever, no chills and no sweats Eyes: no problem reported Ear, Nose, Mouth, Throat: no problem reported Respiratory: no cough, no chest congestion and no problem reported Cardiovascular: no chest pain and no problem reported Gastrointestinal: no problem reported Genitourinary: no problem reported Musculoskeletal: no body aches and no problem reported Integumentary: + lesions, + changing lesions and + skin ulcer Neurologic: no localized weakness, no generalized weakness and no loss of sensation Psychiatric: no problem reported Physical Exam Physical Exam: left foot focused exam: DP/PT pulses 2/4 bilaterally. CFT is brisk to the digits. No significant biomechanical abnormalities are appreciated, including no significant bunion or tailor's bunion deformity appreciated and no evidence of rigid hammertoe formation. There is a well-circumscribed abscess overlying the lateral aspect of the fifth metatarsal head. There is local edema, erythema, and pain. There are 3 separate delineated areas with marker representing areas of cellulitis. All erythema has remained within these jovanni rders. These are confined to the dorsal aspect of the midfoot, the plantar midfoot, and surrounding the fifth metatarsal abscess. No active purulence is noted. No active bleeding on clinical exam. Pain is noted on palpation and range of motion of the fifth metatarsal phalangeal joint. No focal decrease in sensation is noted. No abnormal reflexes noted. No decreased muscle strength. Skin is otherwise supple and well-hydrated with no evidence of atrophy to the skin and soft tissue.. Constitutional: WD/WN, vitals as above no acute distress and not ill appearing Eyes: PERRL, conjunctivae normal, anicteric sclerae ENMT: external ear and nose normal, oropharynx normal Neck: trachea midline, no thyromegaly Respiratory: normal respiratory effort, lungs clear to auscultation Cardiovascular: RRR, no murmur, no edema Vessels: posterior tibial pulses present and dorsalis pedis pulses present Extremities: normal capillary refill and + edema Gastrointestinal (Abdomen): Inspection/Auscultation: abdomen normal to inspection Musculoskeletal: no cyanosis or clubbing, extremities motor strength 5/5 Head/Neck/Chest: normocephalic and head atraumatic Extremities: extremities normal to inspection and + foot abnormality (Blister/Abscess overlying left 5th MTPJ with local cellulitis) Left; full ROM of extremities Skin: no rashes, warm and dry + ulcer and + wound; no skin atrophy Trauma: no evidence of skin trauma Neurologic: patellar DTR's 2+ bilat, sensation intact Psychiatric: A+Ox3, euthymic affect Results & Data Vital Signs (Past 12 Hours) Vital Signs Temp Pulse Resp BP BP Pulse Ox O2 Del Method 01/06/24 19:20 36.6 C 95 H 18 137/84 Room Air 01/06/24 15:02 36.6 C 75 16 118/76 99 Room Air Diagnostic Findings MRI and plain film imaging reviewed. Healing stress fracture noted to the surgical neck of the second metatarsal. there is a well-circumscribed abscess overlying the fifth metatarsal phalangeal joint. On MRI, this appears to be subcutaneous in nature with no deep extension. No evidence of underlying osteomyelitis. No evidence of deep infection along with tendon tracks, with the abscess mostly confined to the fifth metatarsal head.
[2024-01-07] MEDS ORDERED: Nursing to Pharmacy Communication SCH ×2 (00:15→17:30)
[2024-01-07] MEDS: DAPTOmycin 250 MG in SYRINGE 0 ML IV SCH (00:45)
[2024-01-07] MEDS: INSULIN ASPART PER UNIT CHARGE SC SCH ×2 (06:31→18:11)
[2024-01-07 06:38] LABS: Basophils # (auto) 0.05 K/uL (0.00-0.20); Basophils % (auto) 0.6 %; Eosinophils # (auto) 0.28 K/uL (0.00-0.50); Eosinophils % (auto) 3.5 %; Hematocrit (blood only) 33.9 % (37.0-47.0); Hemoglobin 11.3 g/dl (12.0-16.0); Immature Granulocytes # (auto) 0.03 K/uL (0.01-0.20); Immature Granulocytes % (auto) 0.4 %; Lymphocytes # (auto) 1.98 K/uL (1.20-3.40); Lymphocytes % (auto) 24.6 %; Mean Corpuscular Hemoglobin 28.8 pg (25.0-34.0); Mean Corpuscular Hgb Conc 33.3 g/dL (32.0-36.0); Mean Corpuscular Volume 86.5 fL (80.0-100.0); Mean Platelet Volume 11.7 fL (9.4-12.4); Monocytes # (auto) 0.88 K/uL (0.11-0.59); Monocytes % (auto) 10.9 %; Neutrophils # (auto) 4.84 K/uL (1.40-6.50); Platelet Count 222 K/uL (130-400); RDW Coefficient of Variation 13.2 % (11.5-14.5); RDW Standard Deviation 41.6 fL (36.4-46.3); Red Blood Count 3.92 M/uL (4.20-5.40); White Blood Count 8.06 K/ul (4.8-10.8)
[2024-01-07 06:56] LABS: BUN Creatinine Ratio 13.3 (10-20); Calcium 8.7 mg/dl (8.6-10.3); Creatinine Clr Calc Pharmacy 160.5 ml/min; Est GFR (African American) 147.9 ml/min; Est GFR (Non-African American) 127.6 ml/min; Potassium 3.9 mmol/L (3.5-5.1)
[2024-01-07] MEDS ORDERED: fentaNYL citrate PF 100 MCG/2 ML VIAL ONE (15:41)
[2024-01-07] MEDS ORDERED: MIDAZOLAM HCL 1 MG/ML 2ML VIAL ONE (15:41)
--- NOTE | 2024-01-07 15:41 | Anesthesiology Consultation ---
Date of Service January 07, 2024 Assessment & Plan Chart Review Chart Review: Acceptable Risk for Surgery and Patient NOT seen in Pre Admission Testing Consults Requested none History Surgery Operation Date: 01/07/24 10:50 Proposed Procedures p Left Fifth Metatarsalphalangeal Joint Incision and Drainage - Kal Alston DPM Height/Weight Height: 5 ft 8 in Weight: 79.9 kg Allergies Allergy/AdvReac Type Severity Reaction Status Date / Time Lady Bugs Allergy Severe Swelling Uncoded 01/05/24 21:36 and hives Medications Home Medications Medication Instructions Recorded Confirmed Last Taken blood-glucose meter,continuous #1 ea 05/23/21 12/31/23 Unknown (Dexcom G6 Machine Folder) lancets 33 gauge (OneTouch Delica 08/01/21 12/31/23 Unknown Lancets) ondansetron 4 mg disintegrating 4 mg PO TID PRN NAUSEA/VOMITING 10/15/21 01/05/24 02/12/22 tablet #90 tabs acetone (urine) test (Ketostix #50 ea 10/19/22 12/31/23 Unknown strips) Dexcom G6 Sensor (blood-glucose #9 ea 12/19/22 12/31/23 Unknown sensor) Medical Marijauna 1 dose inhalation UD PRN Abdominal 02/20/23 01/05/24 02/22/23 Pain duloxetine 60 mg capsule,delayed 60 mg PO QAM 02/20/23 01/05/24 01/05/24 release magnesium 250 mg tablet 250 mg PO QAM 02/20/23 01/05/24 01/05/24 loratadine 10 mg tablet 10 mg PO DAILY PRN allergy 03/04/23 01/05/24 Unknown symptoms #90 tabs buspirone 10 mg tablet 10 mg PO BID PRN Anxiety 03/15/23 01/05/24 Unknown sucralfate 100 mg/mL oral 10 ml PO QID PRN as directed 03/15/23 01/05/24 Unknown suspension (Carafate) levonorgestrel-ethinyl estradiol 1 tab PO QAM #84 tabs 03/19/23 01/05/24 01/05/24 0.1 mg-20 mcg tablet (Sronyx) OneTouch Verio test strips (blood #100 ea 04/06/23 12/31/23 Unknown sugar diagnostic) famotidine 40 mg tablet 40 mg PO BID #60 tabs 04/29/23 01/05/24 01/05/24 08:00 metoclopramide HCl 5 mg tablet 5 mg PO ACHS #120 tabs 04/29/23 01/05/24 01/05/24 (Reglan) glucagon HCl 1 mg solution for 1 mg subcut Q20M PRN hypoglycemia 05/08/23 01/05/24 Unknown injection (Glucagon (HCl) #1 ea Emergency Kit) pen needle, diabetic 31 gauge x #300 ea 05/08/23 12/31/23 Unknown 3/16" (BD Ultra-Fine Mini Pen Needle) etodolac 200 mg capsule 200 mg PO Q12H PRN pain 05/18/23 01/05/24 Unknown Dexcom G6 Transmitter #1 ea 05/27/23 12/31/23 Unknown (blood-glucose transmitter) insulin pump cart,automated,BT #10 ea 05/28/23 12/31/23 Unknown (Omnipod 5 G6 Pods (Gen 5) subcutaneous cartridge) insulin pump cartridge,automated #1 ea 05/28/23 12/31/23 Unknown dose,BT with controller subcutaneous (Omnipod 5 G6 Intro Kit (Gen 5) subcutaneous cartridge with controller) insulin aspart U-100 100 unit/mL 0 unit continuous subcutaneous 06/21/23 01/05/24 Unknown subcutaneous solution (Novolog infusion TIDM U-100 Insulin aspart) aluminum-mag hydroxide-simethicone 10 ml PO DIRECTED PRN Gi Upset 07/10/23 01/05/24 Unknown 200 mg-200 mg-20 mg/5 mL oral susp insulin aspart U-100 100 unit/mL See Rx Instructions subcut TIDM 01/01/24 01/05/24 01/05/24 (3 mL) subcutaneous pen (Novolog #15 mL FlexPen U-100 Insulin aspart) amoxicillin 875 mg-potassium 1 tab PO BID 10 days #20 tabs 01/04/24 01/05/24 01/05/24 08:00 clavulanate 125 mg tablet lactulose 10 gram/15 mL oral 10 g PO DAILY PRN NEEDED PER PT 01/04/24 01/05/24 Unknown solution Active Medications Generic Name Dose Route Start Last Admin Trade Name Freq PRN Reason Stop Dose Admin Duloxetine HCl 60 mg 01/06/24 09:00 01/07/24 09:06 Duloxetine Hcl 60 Mg Cap PO 02/05/24 08:59 60 mg QAM MARIELLA Administration Famotidine 40 mg 01/06/24 09:00 01/07/24 09:06 Famotidine 40 Mg Tablet PO 02/05/24 08:59 40 mg BID MARIELLA Administration Daptomycin 250 mg/ Syringe 5 mls @ 2.5 mls/min 01/06/24 22:00 01/07/24 00:45 IV 01/13/24 21:59 2.5 mls/min Q24H MARIELLA Administration Protocol Piperacillin Sod/Tazobactam 100 mls @ 25 mls/hr 01/06/24 04:00 01/07/24 12:21 Sod 4.5 gm/ Dextrose IV 01/13/24 00:49 25 mls/hr Q8H MARIELLA Administration Protocol Insulin Aspart 0 units 01/07/24 06:00 01/07/24 12:21 Insulin Aspart Per Unit Charge SC 02/06/24 05:59 Not Given Q6 MARIELLA Insulin Glargine 1 units 01/06/24 21:00 01/06/24 20:34 Lantus Per Unit Charge SQ 02/05/24 20:59 Not Given HS MARIELLA Protocol Metoclopramide HCl 5 mg 01/06/24 07:30 01/07/24 12:21 Metoclopramide Hcl 5 Mg Tablet PO 02/05/24 07:29 5 mg ACHS MARIELLA Administration NPO Date Last Intake of Fluids: 01/06/24 Time Last Intake of Fluids: 17:30 Date Last Intake of Solids: 01/06/24 Time Last Intake of Solids: 17:30 Past Medical History Medical History Metatarsal fracture Insomnia Seizure 11/2021>MEDICATION INDUCED Past Family History Family History Mother Family history of diabetes mellitus Grandmother (Maternal) Family history of diabetes mellitus Other Breast cancer Myocardial infarction No family history of adverse response to anesthesia Ovarian cancer Prostate cancer Denies family history of Colorectal cancer Past Surgical History Surgical History H/O pyloroplasty 04/2022 AT [facility] History of tonsillectomy and adenoidectomy S/P laparoscopy History of colonoscopy History of esophagogastroduodenoscopy (EGD) [place] teeth removed History of ear surgery LEFT EAR S/P INFECTION FROM EARING History of myringotomy H/O eye surgery LASER SURGERY RT/LEFT Social History Smoking Status: Current every day smoker tobacco type: e-cigarettes Smoking cigarettes per day: VAPES DAILY>ADVISED Do You Dip or Chew Tobacco: No Hx Alcohol Use: No Alcohol type: beer, wine and hard liquor alcohol intake frequency: holidays/special occasions only Hx Substance Use: Yes substance use type: marijuana Substance Use Type Other:: prescibed to patient Last Used Substance: Hours (ago) Review of Systems Constitutional: no fever, no chills and no sweats Eyes: no problem reported Ear, Nose, Mouth, Throat: no problem reported Respiratory: no cough, no chest congestion and no problem reported Cardiovascular: no chest pain and no problem reported Gastrointestinal: no problem reported Genitourinary (Female): no problem reported Musculoskeletal: no body aches and no problem reported Integumentary: + lesions, + changing lesions and + skin ulcer Neurologic: no localized weakness, no generalized weakness and no loss of sensation Psychiatric: no problem reported Physical Exam Vital Signs Last Vital Signs Temp 37.1 C 01/07/24 15:28 Pulse 81 01/07/24 15:28 Resp 18 01/07/24 15:28 BP 127/73 01/07/24 15:28 Pulse Ox 98 01/07/24 15:28 O2 Del Method Room Air 01/07/24 15:28 Testing Laboratory Results 01/07/24 05:53 01/07/24 05:53 01/05/24 20:24 Gram Stain - Final Foot,Left Aerobic and Anaerobic Culture - Preliminary Group B Beta Strep 01/05/24 22:41 Aerobic Blood Culture - Preliminary Blood No growth in Aerobic bottle after 24 hours. Anaerobic Blood Culture - Preliminary No growth in Anaerobic bottle after 24 hours. 01/05/24 Unknown Aerobic Blood Culture - Preliminary Blood No growth in Aerobic bottle after 24 hours. Anaerobic Blood Culture - Preliminary No growth in Anaerobic bottle after 24 hours. 01/07/24 01/07/24 11:48 06:26 POC Glucose 108 H 175 H
[2024-01-07] MEDS ORDERED: fentaNYL citrate PF 100 MCG/2 ML VIAL IV PRN (15:45)
[2024-01-07] MEDS ORDERED: ATROPINE SULFATE 0.1 MG/ML 10ML SYR IV PRN (15:45)
[2024-01-07] MEDS ORDERED: ONDANSETRON INJ 2 MG/ML 2 ML VIAL IV PRN (15:45)
[2024-01-07] MEDS ORDERED: ePHEDrine sulfate 50 MG/ML AMP IV PRN (15:45)
--- NOTE | 2024-01-07 15:45 | History & Physical Bridge Note ---
Date of Service January 07, 2024 History & Physical Bridge Note I have examined the patient, reviewed the History & Physical and in the interval since the performance of the History & Physical I have noted the following changes of clinical significance: no changes noted. Consent obtained for left fifth metatarsal wound I&D. All questions answered
[2024-01-07] MEDS: BUPIVACAINE 0.5 % 5 MG/1 ML MPF 30ML VIAL ONE (16:00)
[2024-01-07] MEDS ORDERED: PROPOFOL IV EMULSION 10 MG/ML 20 ML VIAL IV ONE ×2 (16:07→16:09)
[2024-01-07] MEDS ORDERED: ONDANSETRON INJ 2 MG/ML 2 ML VIAL ONE (16:07)
[2024-01-07] MEDS ORDERED: LIDOCAINE 2% 2 ML VIAL/AMP(20MG/ML) INFIL ONE (16:07)
--- NOTE | 2024-01-07 16:16 | Post Operative Brief Note ---
Immediate Post Op Note v1 Date of Surgery January 07, 2024 Pre & Post Diagnosis Operation Date: 01/07/24 10:50 Pre-Op Diagnosis: Abscess of left foot Post-Op Diagnosis: Abscess of left foot I identified the patient and participated in the time-out.: Yes Procedure Operation Date: 01/07/24 10:50 Actual Procedures p Left Fifth Metatarsalphalangeal Wound Incision and Drainage(Left) - Kal Alston DPM Surgeon Kal Alston DPM Turf Farm Worker None Estimated Blood Loss 2 Findings Consistent with Post-Op Diagnosis No deep extension. Wound moderate in sieze, 2.5x3.5cm to the lateral 5th metatarsal head, but no deep extension past the subcutaneous tissue. Purulent blister expressed/deroofed uneventfully Specimens Deep tissue swab from wound sent for C&S Anesthesia Type MAC Complications none Disposition Accompanied Patient To Recovery: Yes Disposition: Recovery Room
--- NOTE | 2024-01-07 16:24 | Operative Report ---
Post Operative Report Pre & Post Diagnosis Operation Date: 01/07/24 10:50 Pre-Op Diagnosis: Abscess of left foot Post-Op Diagnosis: Abscess of left foot I identified the patient and participated in the time-out.: Yes Procedure Operation Date: 01/07/24 10:50 Actual Procedures p Left Fifth Metatarsalphalangeal Wound Incision and Drainage(Left) - Kal Alston DPM Surgeon Kal Alston DPM Mill Worker None Estimated Blood Loss 2 Findings Consistent with Post-Op Diagnosis No deep extension of the ulceration was noted. Of note, this ulcer did seem to extend to the plantar callus, though this callus also had a central nidus. This is likely the result of a puncture wound or retained foreign body that led to this abscess. The large, tense blister was able to be drained without any residual clinical evidence of infection. The wound remained and measured 2.5 x 3.5 cm with a 100% granular base. This did not extend past the level of the subcutaneous tissue. Specimens Deep swab cultures were obtained from the wound directly Anesthesia Type MAC Complications none Disposition Accompanied Patient To Recovery: Yes Disposition: Recovery Room Indications Ms. Diaz is a recent hospital consult of [facility] who presented with a diabetic foot infection to the left foot. She states that she had a callus shaved down which immediately led to infection along the outside of the foot. She states that this is painful and difficult to walk on but otherwise denied any systemic signs of infection. She had an MRI performed here on this hospitalization that did not reveal any deep extension, but did reveal the wound and the overlying blister. We discussed that incision and drainage would be warranted to help identify any pathogens but also remove any infectious burden. Preoperative instructions, postop instructions, relative risks, and outcomes were all discussed at length. Consent was obtained for this procedure. All questions were answered. Description of Procedure The patient was brought to the operating room And left on her hospital bed in the supine position. Following administration of IV sedation, local analgesia was obtained utilizing 20 cc of half percent Marcaine in a local block fashion. The left lower extremity was then scrubbed, prepped, and draped in the usual aseptic manner. Attention was directed to the left lateral forefoot where a tense blister was noted overlying the fifth metatarsal head. This is unchanged in size from yesterday's visit, though the erythema has decreased overall. Utilizing a Adson pickup, the tense skin overlying the blister was deroofed. The blister fluid was noted to be cloudy and purulent in nature. Because of the purulent nature of the drainage, the entire blister was deroofed utilizing a Metzenbaum scissor. The underlying wound bed was noted to be 100% granular with no proximal or deep extension noted. This was further debrided with a clean 15 blade and a curette. The plantar aspect of the ulceration was noted to be more consistent with a puncture wound extending to this blister. This could explain the presence of the callus prior to this entire incident. Either way, the callus was sharply debrided and the potential foreign body sinus was debrided from the foot. All remaining soft tissue was noted to be clinically viable with no evidence of necrosis. The foot was then dressed with Xeroform gauze, 4 x 4 gauze, Kerlix, and an Tyron wrap. The patient tolerated the procedure well was transferred to the recovery with vital signs stable and vascular status intact to the feet. Following postoperative monitoring, the patient was given prescriptions and instructions which were discussed with her prior to surgery and transferred back to the floor for further monitoring. She will likely be able to be discharged here in the next couple of days given the improved state of her foot with no increase in cellulitis. I attest to the content of the Intraoperative Record and any orders documented therein. Any exceptions are noted below.
--- NOTE | 2024-01-07 16:41 | Anesthesiology Progress Note ---
Date of Service January 07, 2024 Anesthesia Post Procedure Vital Signs Vital Signs: Temp Pulse Resp BP Pulse Ox O2 Del Method 01/07/24 15:28 37.1 C 81 18 127/73 98 Room Air 01/07/24 07:35 36.5 C 83 16 129/85 100 Room Air 01/06/24 19:20 36.6 C 95 H 18 137/84 Room Air Pain Intensity Left Foot: Pain Intensity: 0 Transfer of Care Handoff Completed per policy Notes Mental Status: alert / awake / arousable Patient Amnestic to Procedure: Yes Nausea / Vomiting: adequately controlled Pain: adequately controlled Airway Patency, RR, SpO2: stable & adequate BP & HR: stable & adequate Hydration State: stable & adequate Anesthetic Complications: no major complications apparent and Pt Satisfied with anesthetic care
--- NOTE | 2024-01-07 18:25 | Hospitalist Progress Note ---
Date of Service January 07, 2024 Assessment & Plan (1) Abscess of left foot: Plan: incision and drainage was accomplished January 04 while in the ER. Gram stain reveals gram-positive cocci and final culture results suggest group b strep, sarmiento sensitive Left foot MRI scan reveals fracture of the second metatarsal head and associated edema. Podiatry consultation to The OR for I&D 01/07/24 remains on daptomycin and Zosy Left lower extremity venous Doppler negative for DVT (2) Diabetes type 1, controlled: Plan: Last Hgb A1C=7.9 on 12/28/23. Patient follows with Endocrinology - last seen on 12/31/23. Dr. Pruvis comments that patient does not have simple Type I DM or Type II DM. On recent testing there has been discrepancy on insulin and C-peptide levels which possibly suggests genetic defect. He has suggested that patient proceed with genetic testing. Patient was previously on an insulin pump for a very short time but currently is using pens. -Continue Novolog sliding scale - goal blood sugar 110 - 140. Continue home Lantus dosing of 1 (one) unit qHS (3) Anxiety and depression: Plan: Stable. Continue current medical management of BuSpar duloxetine (4) Gastroparesis: Plan: Chronic. Patient with intermittent nausea and vomiting. Continue Reglan, Pepcid, sucralfate therapy. Zofran IV as needed Admission and Anticipated Discharge Date Admission Date: January 05, 2024 Subjective pt seem preoperatively, has painful left foot with fluid collection and deep tissue infection Physical Exam Physical Exam: cardiac is regular lungs are clear foot with large lateral pointing fluid collection that is darkened Results & Data Results & Data Vital Signs (Past 12 Hours) Vital Signs Temp Pulse Pulse Resp BP BP Pulse Ox 01/07/24 18:13 97.3 F L 93 H 16 117/84 97 01/07/24 17:46 97.7 F 81 16 105/68 98 01/07/24 17:21 98.1 F 73 16 100/65 97 01/07/24 16:55 98.6 F 76 15 104/60 95 01/07/24 16:45 76 13 104/57 L 96 01/07/24 16:35 73 12 106/61 100 01/07/24 16:25 96.8 F L 83 21 108/57 L 100 01/07/24 15:28 98.8 F 81 18 127/73 98 01/07/24 07:35 97.7 F 83 16 129/85 100 O2 Del Method O2 Flow Rate 01/07/24 18:13 Room Air 01/07/24 17:46 Room Air 01/07/24 17:21 Room Air 01/07/24 16:55 Room Air 01/07/24 16:45 Room Air 01/07/24 16:35 Oxymask 2 01/07/24 16:25 Oxymask 6 01/07/24 15:28 Room Air 01/07/24 07:35 Room Air Laboratory Results review cbc review chemistry PG Care Time/CCT Total # of Minutes Spent Total Time Spent with Patient: Total time spent is greater than 50% in coordination of care (as documented) at patient's floor/unit and/or counseling patient: Coding Level of Care Code 93816 SUB INP/OBS CARE 2/35MIN Diagnoses Abscess of left foot L02.612 Diabetes type 1, controlled E10.9 Anxiety and depression F41.9; F32.9 Gastroparesis K31.84
[2024-01-08 06:16] LABS: Hematocrit (blood only) 38.3 % (37.0-47.0); Hemoglobin 12.5 g/dl (12.0-16.0); Mean Corpuscular Hemoglobin 28.6 pg (25.0-34.0); Mean Corpuscular Hgb Conc 32.6 g/dL (32.0-36.0); Mean Corpuscular Volume 87.6 fL (80.0-100.0); Mean Platelet Volume 11.3 fL (9.4-12.4); Platelet Count 263 K/uL (130-400); RDW Coefficient of Variation 13.1 % (11.5-14.5); RDW Standard Deviation 42.2 fL (36.4-46.3); Red Blood Count 4.37 M/uL (4.20-5.40); White Blood Count 8.39 K/ul (4.8-10.8)
[2024-01-08 06:35] LABS: BUN Creatinine Ratio 13.2 (10-20); Calcium 9.5 mg/dl (8.6-10.3); Creatinine Clr Calc Pharmacy 141.6 ml/min; Est GFR (African American) 141.9 ml/min; Est GFR (Non-African American) 122.4 ml/min; Potassium 3.8 mmol/L (3.5-5.1)
[2024-01-08 06:42] LABS: Basophils # (auto) 0.04 K/uL (0.00-0.20); Basophils % (auto) 0.5 %; Eosinophils # (auto) 0.18 K/uL (0.00-0.50); Eosinophils % (auto) 2.1 %; Immature Granulocytes # (auto) 0.02 K/uL (0.01-0.20); Immature Granulocytes % (auto) 0.2 %; Lymphocytes % (auto) 27.4 %; Monocytes # (auto) 0.87 K/uL (0.11-0.59); Monocytes % (auto) 10.4 %; Neutrophils # (auto) 4.98 K/uL (1.40-6.50); Neutrophils % (auto) 59.4 %
--- NOTE | 2024-01-08 16:35 | Discharge Summary ---
Date of Service January 08, 2024 Admission HPI Per Admitting Provider Sonia Diaz is a 23yo female with history of DM Type I since age 11 complicated by peripheral neuropathy, retinopathy and gastroparesis presenting with infection of left foot. Patient reports having a callus on the lateral portion of her left foot approximately 2 weeks ago. On 12/31/23 she had an appointment with Dr. Purvis of Endocrinology who noted a hemorrhagic callus sub-MTH 5. He referred patient to the diabetic foot clinic. On 01/04/24 patient noted that the blister on her foot got larger, more fluid filled and fluctuant and she developed some pain and swelling in her root. Her pain persisted throughout the day as did the redness and streaking up her leg. She was seen by Shell Wallace PA-C on 01/04/24 and prescribed Augmentin. She has taken two doses of the Augmentin without difficulty but reports ongoing redness, pain and swelling. She has severe pain and streaking on the plantar surface of her left foot as well as pain in the left inguinal lymph node chain. Patient presents to the ER today with ongoing pain, redness and swelling. Noted to have a hemorrhagic blister on the lateral portion of her left foot. A bedside I&D was performed by ER staff with expression of purulent fluid. Patient reports subjective fevers and chills as well as intermittent nausea which she attributes to her gastroparesis ER Course: Daptomycin Zosyn Principal Diagnosis diabetic foot infection culture with staph Discharge Exam cardiac is regular lungs are clear dressing in place, pt confirms Dr Diop did undress and inspect redress wound Discharge Data Allergies Allergy/AdvReac Type Severity Reaction Status Date / Time Lady Bugs Allergy Severe Swelling Uncoded 01/05/24 21:36 and hives Consultations 01/05/24 22:56 ED Decision to Admit Stat 01/06/24 13:05 Consult Podiatry Routine Procedures Performed Operation Date: 01/07/24 10:50 Actual Procedures p Left Fifth Metatarsalphalangeal Wound Incision and Drainage(Left) - Kal Alston DPM Ordered Studies 01/05/24 21:22 US leg [US venous doppler LE LT] Stat 01/06/24 00:50 MRI Foot [MR foot LT wo/w con] Routine Hospital Course (1) Abscess of left foot: incision and drainage was accomplished January 04 while in the ER. Gram stain reveals gram-positive cocci and final culture results suggest group b strep, sarmiento sensitive Left foot MRI scan reveals fracture of the second metatarsal head and associated edema. Podiatry consultation to The OR for I&D 01/07/24 given concerns for diabetic foot infection , will continue to cover for multiple organisms at home with 2 week course of Doxycycline and Levaquin, with wound care appt on january 13 and if needed amendment of antibiotics Left lower extremity venous Doppler negative for DVT (2) Diabetes type 1, controlled: Last Hgb A1C=7.9 on 12/28/23. Patient follows with Endocrinology - last seen on 12/31/23. Dr. Purvis comments that patient does not have simple Type I DM or Type II DM. On recent testing there has been discrepancy on insulin and C-peptide levels which possibly suggests genetic defect. He has suggested that patient proceed with genetic testing. Patient was previously on an insulin pump for a very short time but currently is using pens. -Continue Novolog sliding scale - goal blood sugar 110 - 140. Continue home insulin dosing and dexcon meter (3) Anxiety and depression: Stable. Continue current medical management of BuSpar duloxetine (4) Gastroparesis: Chronic. Patient with intermittent nausea and vomiting. Continue Reglan, Pepcid, sucralfate therapy. Zofran IV as needed Total Time Total Time Spent Total Time Spent (In Minutes): It required greater than 30 minutes to prepare this patient for discharge. Discharge Plan Discharge Items Patient Disposition: Home - Self-Care Reason For Visit: DIABETIC FOOT ULCER Discharge Diagnosis: diabetic foot infection Condition on Discharge: Fair Activity: Per Instructions section Activity Comment: keep elevated when not walking and ice if swollen Non-emergency contact: Primary Care Provider Call non-emergency contact if: your symptoms worsen Follow-up/Referrals: Iraida Mayorga MD [Primary Care Provider] - Diet: Carb Consistent or DM2 Addtl Attending Provider Instructions: please finish all of your antibiotics, and always return if you feel you foot is looking worsened by more redness swelling or drainage please try to keep your blood sugars in the 100-120 range if you can follow up with wound care as scheduled Pending Studies at Discharge: Yes Studies:: intra operative cultures Stand-Alone Forms: [facility], Work/School Release, Smoking Cessation Medications and DC Order Prescriptions: New levofloxacin 750 mg tablet 750 mg PO DAILY 14 Days Qty: 14 0RF doxycycline hyclate 100 mg capsule 100 mg PO BID 10 Days Qty: 20 0RF Continued ondansetron 4 mg tablet,disintegrating 4 mg PO TID PRN (Reason: NAUSEA/VOMITING) Qty: 90 3RF (DME) Ketostix Strip See Rx Instructions miscellaneous .MEDSUPPLY Qty: 50 5RF Rx Instructions: Check if blood sugars are high (DME) Dexcom G6 Sensor Device See Rx Instructions .Route Qty: 9 3RF Rx Instructions: Change every 10 days loratadine 10 mg tablet 10 mg PO DAILY PRN (Reason: allergy symptoms) Qty: 90 3RF levonorgestrel-ethinyl estrad [Sronyx] 0.1-20 mg-mcg tablet 1 tab PO QAM Qty: 84 3RF (DME) Dexcom G6 Transmitter Device See Rx Instructions .Route Qty: 1 3RF Rx Instructions: Change every 90 days insulin aspart U-100 [Novolog FlexPen U-100 Insulin] 100 unit/mL (3 mL) insulin pen See Rx Instructions subcut TIDM MDD 15 units Qty: 15 5RF Rx Instructions: subcutaneously three times daily with meals; 1 UNIT:30 CARBS. NOT USING PUMP AT THIS TIME. 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 See Rx Instructions .Route Qty: 1 0RF Rx Instructions: Use As directed (DME) pen needle, diabetic [BD Ultra-Fine Mini Pen Needle] 31 gauge x 3/16" needle See Rx Instructions .Route Qty: 300 3RF Rx Instructions: Inject insulin three times daily glucagon HCl [Glucagon (HCl) Emergency Kit] 1 mg recon soln 1 mg subcut Q20M PRN (Reason: hypoglycemia) Qty: 1 3RF Rx Instructions: until target blood sugar attained etodolac 200 mg capsule 200 mg PO Q12H PRN (Reason: pain) (DME) lancets [OneTouch Delica Lancets] 33 gauge misc See Rx Instructions .Route Rx Instructions: Test once daily PRN (DME) OneTouch Verio test strips Strip See Rx Instructions .Route Qty: 100 3RF Rx Instructions: Test once daily as needed (DME) Omnipod 5 G6 Intro Kit (Gen 5) Cartridge See Rx Instructions .Route Qty: 1 0RF Rx Instructions: As directed (DME) Omnipod 5 G6 Pods (Gen 5) Cartridge See Rx Instructions .Route Qty: 10 5RF Rx Instructions: As directed lactulose 10 gram/15 mL solution 10 g PO DAILY PRN (Reason: NEEDED PER PT) metoclopramide HCl [Reglan] 5 mg tablet 5 mg PO ACHS Qty: 120 0RF famotidine 40 mg tablet 40 mg PO BID Qty: 60 0RF insulin aspart U-100 [Novolog U-100 Insulin aspart] 100 unit/mL solution 0 unit continuous subcutaneous infusion TIDM Rx Instructions: PUMP NOT IN USE AT THIS TIME. To be used in an insulin pump alum-mag hydroxide-simeth 200-200-20 mg/5 mL suspension 10 ml PO DIRECTED PRN (Reason: Gi Upset) magnesium 250 mg tablet 250 mg PO QAM duloxetine 60 mg capsule,delayed release(DR/EC) 60 mg PO QAM Medical Marijauna 1 dose inhalation UD PRN (Reason: Abdominal Pain) buspirone 10 mg tablet 10 mg PO BID PRN (Reason: Anxiety) sucralfate [Carafate] 100 mg/mL suspension 10 ml PO QID PRN (Reason: as directed) Patient Comments: uses prn only Rx Instructions: swish in mouth and swallow; use after food/drink: May substitute tablets as a slurry. Discontinued amoxicillin-pot clavulanate 875-125 mg tablet 1 tab PO BID 10 Days Qty: 20 0RF Rx Instructions: STARTED 01/04/24 FOR 10 DAYS Discharge Orders: Discharge Order (Routine); Ordered 01/08/24 Ordered By: Kal Hoffman/Other Patient Handouts: Managing Type 1 Diabetes Admission Data Admit Date/Time: 01/05/24 23:23 Attending Provider: Myron Jacome Admit Provider: Lissa Lima Primary Care Provider: Iraida Mayorga Other Providers: Lissa Lima; Kal Alston Other Interventions: Discharge Summary Assessment (RN) Last Done: 01/08/24 13:49 Coding Level of Care Code 40140 INP/OBS DISCH >30 MIN Diagnoses Abscess of left foot L02.612 Diabetes type 1, controlled E10.9 Anxiety and depression F41.9; F32.9 Gastroparesis K31.84
== END 2024-01-08 14:19 | disposition home or self-care (01) | DRG 623 ==
LOC: ED 17:50 → 3E 23:23 → SUATTDRO 23:23 → 3E 01-06 00:12

== ENCOUNTER 2024-05-18 20:36 | Inpatient (IN) ==
--- NOTE | 2024-05-18 21:24 | Emergency Department Note ---
Impression & Plan Abdominal pain, Nausea vomiting and diarrhea, Acute hyponatremia, Hypomagnesemia, Acute dehydration ED Provider Note CHIEF COMPLAINT: Abdominal pain, vomiting HISTORY OF PRESENTING ILLNESS: This 24-year-old female patient presents to the emergency department with her grandmother and fiance for evaluation of abdominal pain and vomiting. The patient has a history of gastroparesis and has had a flare of her symptoms over the past 2 days. She has also had some loose stools along with the nausea and vomiting. She states that it feels like one of her typical flares, but the pain is worse than usual. She rates her discomfort as 10/10. She also has chest pain and SOB with her symptoms. She denies any urinary symptoms. She admits to marijuana use with her last use earlier today. She denies a history of cannabinoid hyperemesis syndrome in the past. The patient states that she had a miscarriage 1 month ago. REVIEW OF SYSTEMS: See HPI for pertinent positives and pertinent negatives. ALLERGIES: Lady Bugs MEDICATIONS: See below PAST MEDICAL HISTORY: See below PHYSICAL EXAM: VITALS: Vitals are noted on the nurse's note and reviewed by myself. GENERAL: Non toxic, no acute distress, non-diaphoretic. SKIN: Capillary refill <2 sec. EYES: PERRLA. EOMI. Conjunctivae without injection, sclerae without icterus. NOSE: Patent without discharge. MOUTH: Mucous membranes moist. Uvula midline. Airway patent. NECK: Supple without nuchal rigidity. HEART: Regular rate and rhythm without murmurs gallops or rubs. LUNGS: Clear to auscultation bilaterally without wheezes, rales or rhonchi. No retractions or accessory muscle use. ABDOMEN: Positive bowel sounds x 4. Normal tympanic percussion. Soft, diffusely tender to palpation with no maximal area of tenderness. No masses or organomegaly. No CVA tenderness. [place] sign negative. No guarding or rebound tenderness. No focal RLQ or LLQ tenderness. MUSCULOSKELETAL: No gross musculoskeletal defects. NEURO: Patient was alert and oriented. No focal neurological deficits. DIFFERENTIAL DIAGNOSIS: Differential diagnosis includes gastroparesis, cannabinoid hyperemesis syndrome, hepatitis, pancreatitis, cholecystitis, cholelithiasis, appendicitis, kidney stone, pyelonephritis, UTI, gastritis, gastroenteritis, mesenteric adenitis, obstruction, constipation, hernia, abdominal abscess, perforation, diverticulitis, IBD, ischemic colitis, abdominal aortic aneurysm, , ectopic , ovarian cyst, ovarian torsion, acute salpingitis, or others. ED COURSE AND MEDICAL DECISION MAKING: HISTORY FROM INDEPENDENT HISTORIAN: Additional history obtained from patient's grandmother MEDICATIONS GIVEN: 1 L normal saline solution bolus. Reglan 10 mg IV, Toradol 10 mg IV, Pepcid 20 mg IV, Zofran 4 mg IV, and morphine 4 mg IV. Magnesium 1 g IV. MONITOR: Continuous teletypesetter monitor: Order was placed for continuous teletypesetter monitor. Patient was placed on the teletypesetter monitor and continuous pulse ox. Patient was noted to be in normal sinus rhythm at an initial rate of 96 bpm per my interpretation. EKG: EKG was interpreted by myself as normal sinus rhythm at [address] and T wave changes, but no acute ST or T wave changes and no significant change compared to her previous EKG. INTERPRETATION OF LABS: I interpreted the labs with full lab results as below in the lab section of this note. Pertinent lab results discussed in the MDM section below. INTERPRETATION OF IMAGING: Chest x-ray per my interpretation was negative for acute cardiopulmonary etiology. Radiology report still pending. Additional imaging studies were interpreted by myself and read by radiology as per the imaging section of this note. CT scan of the abdomen pelvis with IV contrast showed mild wall thickening of the small bowel concerning for mild enteritis. No other acute abnormalities noted. CONSULTATIONS: On-call hospitalist [facility] SUMMARY: I examined the patient. The patient has been having nausea, vomiting, diarrhea, and abdominal pain for the past 2 days. She states it is similar to her flares of her gastroparesis. The patient smokes marijuana daily, but states she has never been told she had cannabinoid hyperemesis syndrome. An IV lock was placed and labs were drawn. The patient was given 1 L normal saline solution bolus, Reglan 10 mg IV, Toradol 10 mg IV, Pepcid 20 mg IV, and Zofran 4 mg IV.the patient requested additional pain medication, but when nursing staff went in to give the patient the medication, she was sound asleep. Therefore, additional pain medication was held. However, once the patient woke back up she complained of additional pain and was given morphine 4 mg IV. The patient was also given 1 g of magnesium IV due to her hypomagnesemia. White blood cell count elevated at 17.42. Hemoglobin normal at 13.2. Platelet count normal at 221. Sodium low at 122, potassium 3.4, chloride 87, anion gap elevated at 13, and glucose 230. CMP otherwise without significant abnormalities. Magnesium low at 1.2. Lipase normal. High-sensitivity troponin normal. Serum hCG negative. Urinalysis with 2+ glucose, 3+ ketones, trace blood, 3-5 red blood cells, 3-5 epithelial cells, and 2+ bacteria. Urine culture is pending. Chest x-ray per my interpretation was negative for acute cardiopulmonary etiology. Radiology report still pending. Additional imaging studies were interpreted by myself and read by radiology as per the imaging section of this note. CT scan of the abdomen pelvis with IV contrast showed mild wall thickening of the small bowel concerning for mild enteritis. No other acute abnormalities noted. The patient was unable to give a stool sample while in the emergency department. I had a meaningful discussion about this patient with Dr. Jaime who agrees with my assessment and the treatment plan. The patient's symptoms may be secondary to an enteritis, gastroenteritis, a flare of her gastroparesis, or cannabinoid hyperemesis syndrome vs other etiology. Due to the patient's abnormal laboratory values including her hyponatremia of 122, it was felt the patient required admission for further evaluation and treatment. I spoke with the on-call hospitalist who agreed to admit the patient for further management. Please refer to their dictation for further details. The patient's care was transferred in stable condition. DIAGNOSIS: Abdominal pain Nausea, vomiting, and diarrhea Hypokalemia Hypomagnesemia Dehydration Past Med/Surg History Problem List (Updated 05/19/24 @ 04:42 by Eri Ocasio PA-C) Acute dehydration (Acute) Hypomagnesemia (Acute) Acute hyponatremia (Acute) Nausea vomiting and diarrhea (Acute) Abdominal pain (Acute) Hypomagnesemia with normocalciuria Hyponatremia with decreased serum osmolality Vomiting Miscarriage Early stage of Diabetic ulcer of left foot associated with diabetes mellitus due to underlying condition, limited to breakdown of skin (Acute) Inguinal adenopathy (Acute) Leukocytosis (Acute) Lymphangitis (Acute) Cellulitis of foot, left (Acute) Abscess of left foot (Acute) Anxiety and depression Diabetic peripheral neuropathy associated with type 1 diabetes mellitus Personal history of diabetic foot ulcer Gastroparesis Chronic diarrhea IBS (irritable bowel syndrome) (Acute) Hypoglycemia unawareness associated with type 1 diabetes mellitus Insomnia Fecal incontinence Anorectal motility disorder Vitamin D deficiency Cyclical vomiting Diabetic autonomic neuropathy associated with type 1 diabetes mellitus Proliferative diabetic retinopathy associated with type 1 diabetes mellitus Diabetes type 1, controlled Medical History Metatarsal fracture Seizure Surgical History H/O pyloroplasty History of tonsillectomy and adenoidectomy S/P laparoscopy History of colonoscopy History of esophagogastroduodenoscopy (EGD) [place] teeth removed History of ear surgery History of myringotomy H/O eye surgery Family History Mother Family history of diabetes mellitus Grandmother (Maternal) Family history of diabetes mellitus Other Breast cancer Myocardial infarction No family history of adverse response to anesthesia Ovarian cancer Prostate cancer Denies family history of Colorectal cancer Social History Smoking Status: Current every day smoker Tobacco Type: E-cigarettes / Vaping Cigarettes Per Day: VAPES DAILY>ADVISED; Second Hand Exposure: No; Do You Dip or Chew Tobacco: No; Hx Alcohol Use: No Hx Substance Use: Yes Prescribed Medications: Marijuana Last Used Substance: Hours (ago) Substance Use Type Other:: prescibed to patient Preferred Language: [place] Communication Ability: Effective Visual Impairment: No Limitations Pigment Pumper Required: No Beliefs That Will Affect Care: None marital status: Single Current Living Situation: Family Current Living Situation Comment: grandmother Feels Safe at Home: Yes Dental Care, Regularly: Yes Physical Activity Frequency: 5-6 Times per Week Assistive Devices: None Allergies Allergies Allergy/AdvReac Type Severity Reaction Status Date / Time Lady Bugs Allergy Severe Swelling Uncoded 05/18/24 22:52 and hives Home Meds Home Medications Medication Instructions Recorded Confirmed Medical Marijauna 1 dose inhalation UD PRN Abdominal 02/20/23 05/18/24 Pain buspirone 10 mg tablet 10 mg PO BID PRN Anxiety 03/15/23 05/18/24 sucralfate 100 mg/mL oral 10 ml PO QID PRN as directed 03/15/23 05/18/24 suspension (Carafate) etodolac 200 mg capsule 200 mg PO Q12H PRN pain 05/18/23 05/18/24 aluminum-mag hydroxide-simethicone 10 ml PO DIRECTED PRN Gi Upset 07/10/23 05/18/24 200 mg-200 mg-20 mg/5 mL oral susp magnesium 250 mg tablet 500 mg PO QAM 04/28/24 05/18/24 Previous Rx's Medication Instructions Recorded ondansetron 4 mg disintegrating 4 mg PO TID PRN NAUSEA/VOMITING 10/15/21 tablet #90 tabs loratadine 10 mg tablet 10 mg PO DAILY PRN allergy 03/04/23 symptoms #90 tabs levonorgestrel-ethinyl estradiol 1 tab PO QAM #84 tabs 03/19/23 0.1 mg-20 mcg tablet (Sronyx) glucagon HCl 1 mg solution for 1 mg subcut Q20M PRN hypoglycemia 05/08/23 injection (Glucagon (HCl) #1 ea Emergency Kit) insulin aspart U-100 100 unit/mL See Rx Instructions subcut TIDM 01/01/24 (3 mL) subcutaneous pen (Novolog #15 mL FlexPen U-100 Insulin aspart) duloxetine 60 mg capsule,delayed 60 mg PO QAM #90 caps 04/25/24 release Results & Data (ED) Vital Signs Vital Signs - 24 hr 05/18/24 20:55 05/18/24 23:03 05/19/24 01:00 Temperature 36.7 C Temperature Source Temporal Artery Scan Pulse Rate 106 H Pulse Rate [Finger] 78 98 H Respiratory Rate 18 16 16 Respiratory Effort / Characteristics Non-Labored Spontaneous Non-Labored Respiratory Depth Normal Normal Respiratory Pattern Regular Blood Pressure 126/80 Blood Pressure [Right Arm] 143/82 H Blood Pressure Mean 95 Blood Pressure Mean [Right Arm] 102 Blood Pressure Position Sitting Pulse Oximetry 98 97 98 Oxygen Delivery Method Room Air Room Air Room Air Sepsis Recent Fever Within 48 Hours No Sepsis New/Unexplained Change in Mental Status N/A Sepsis Action Taken by Nursing No Action Required 05/19/24 01:03 05/19/24 01:19 Temperature Temperature Source Pulse Rate 112 H Pulse Rate [Finger] Respiratory Rate Respiratory Effort / Characteristics Respiratory Depth Respiratory Pattern Blood Pressure Blood Pressure [Right Arm] Blood Pressure Mean Blood Pressure Mean [Right Arm] Blood Pressure Position Pulse Oximetry 97 Oxygen Delivery Method Room Air Sepsis Recent Fever Within 48 Hours Sepsis New/Unexplained Change in Mental Status Sepsis Action Taken by Nursing Laboratory Data 05/18/24 21:28 05/18/24 21:28 Lab Results 05/18/24 05/19/24 Range/Units 21: 01:00 WBC 17.42 H (4.8-10.8) K/ul RBC 4.61 (4.20-5.40) M/uL Hgb 13.2 (12.0-16.0) g/dl Hct 37.6 (37.0-47.0) % MCV 81.6 (80.0-100.0) fL MCH 28.6 (25.0-34.0) pg MCHC 35.1 (32.0-36.0) g/dL RDW Std Deviation 35.8 L (36.4-46.3) fL RDW Coeff of Mil 12.0 (11.5-14.5) % Plt Count 221 (130-400) K/uL MPV 12.6 H (9.4-12.4) fL Immature Gran % (Auto) 0.4 % Neut % (Auto) 89.5 % Lymph % (Auto) 6.2 % [place] % (Auto) 3.2 % Eos % (Auto) 0.6 % Baso % (Auto) 0.1 % Neut # (Auto) 15.59 H (1.40-6.50) K/uL Lymph # (Auto) 1.08 L (1.20-3.40) K/uL [place] # (Auto) 0.55 (0.11-0.59) K/uL Eos # (Auto) 0.11 (0.00-0.50) K/uL Baso # (Auto) 0.02 (0.00-0.20) K/uL Immature Gran # (Auto) 0.07 (0.01-0.20) K/uL Sodium 122 L (136-145) mmol/L Potassium 3.4 L (3.5-5.1) mmol/L Chloride 87 L (98-107) mmol/L Carbon Dioxide 22 (21-32) mmol/L Anion Gap 13 H (3-11) BUN 7 (6-23) mg/dl Creatinine 0.52 L (0.6-1.2) mg/dl Est Cr Clr Drug Dosing 185.7 ml/min Est GFR ( Amer) > 150.0 ml/min Est GFR (Non-Af Amer) 132.8 ml/min BUN/Creatinine Ratio 13.5 (10-20) Glucose 230 H (70-99(Fasting)) mg/dl Osmolality 259 L (280-300) mOsm/kg Calcium 8.6 (8.6-10.3) mg/dl Magnesium 1.2 L (1.7-2.4) mg/dl Total Bilirubin 0.9 (0.2-1.0) mg/dl AST 20 (13-39) U/L ALT 13 (7-52) U/L Alkaline Phosphatase 60 (34-104) U/L Troponin I High Sens < 2.3 (0-14) pg/ml Total Protein 7.7 (6.0-8.3) gm/dl Albumin 4.6 (3.4-5.0) gm/dl Globulin 3.1 (2.5-4.0) gm/dl Albumin/Globulin Ratio 1.5 (0.9-2) Lipase 10 L (11-82) U/L HCG, Qual Negative (Negative) Urine Color Yellow Urine Appearance Clear (Clear) Urine pH 6.0 (4.5-7.5) Ur Specific [place] > 1.045 H (1.000-1.030) Urine Protein Negative (Negative) Urine Glucose (UA) 2+ H (Negative) Urine Ketones 3+ H (Negative) Urine Blood Trace H (Negative) Urine Nitrite Negative (Negative) Urine Bilirubin Negative (Negative) Urine Urobilinogen Negative (Negative) Ur Leukocyte Esterase Negative (Negative) Urine WBC (Auto) 0-5 (0-5) /hpf Urine RBC (Auto) 3-5 H (0-2) /hpf U Hyaline Cast (Auto) 0-2 (0-2) /lpf U Epithel Cells (Auto) 3-5 H (0-2) /hpf Urine Bacteria (Auto) 2+ H (None Seen) Urine Osmolality 581 (500-800) mOsm/kg Ur Random Sodium 74 mmol/L Administered Medications Magnesium Sulfate/Dextrose (Magnesium Sulfate / D5w) 1 gm in 100 mls @ 100 mls/hr IV Q1H MARIELLA Stop: 05/19/24 04:44 Last Admin: 08/08/24 03:22 Dose: 100 mls/hr Documented By: KANE Sodium Chloride (Nss) 1,000 mls @ 125 mls/hr IV .Q8H MARIELLA Stop: 06/18/24 03:29 Last Admin: 05/19/24 03:36 Dose: 125 mls/hr Documented By: KANE Discontinued Medications Sodium Chloride (Nss) 1,000 mls @ 999 mls/hr IV .Q1H1M STA Stop: 05/18/24 22:01 Last Infusion: 05/18/24 22:37 Dose: Infused Documented By: Admin: 05/18/24 21:31 Dose: 999 mls/hr Documented By: BAKARI Famotidine (Pepcid 20mg Iv Push) 20 mg in 5 mls @ 2.5 mls/min IV NOW STA Stop: 05/18/24 21:41 Last Admin: 05/18/24 22:09 Dose: 2.5 mls/min Documented By: JUAN Magnesium Sulfate/Dextrose (Magnesium Sulfate / D5w) 1 gm in 100 mls @ 100 mls/hr IV NOW STA Stop: 05/18/24 23:49 Last Infusion: 05/18/24 23:55 Dose: Infused Documented By: Admin: 05/18/24 23:01 Dose: 100 mls/hr Documented By: KANE Ioversol (Optiray 320 100ml) 93 ml IV ONCE ONE Stop: 05/18/24 22:39 Last Admin: 05/18/24 22:38 Dose: 93 ml Documented By: JAMES Ketorolac Tromethamine (Ketorolac Tromethamine 15 Mg/Ml Vial) 10 mg IV NOW ONE Stop: 05/18/24 21:41 Last Admin: 05/18/24 22:08 Dose: 10 mg Documented By: JUAN Metoclopramide HCl (Metoclopramide Hcl Inj 5 Mg/Ml 2 Ml Vial) 10 mg IV NOW STA Stop: 05/18/24 21:41 Last Admin: 05/18/24 22:09 Dose: 10 mg Documented By: JUAN Morphine Sulfate (Morphine Sulfate 4 Mg/Ml 1 Ml Carp\Vial) 4 mg IV NOW STA Stop: 05/18/24 22:51 Last Admin: 05/18/24 23:20 Dose: Not Given Documented By: KANE Morphine Sulfate (Morphine Sulfate 4 Mg/Ml 1 Ml Carp\Vial) 4 mg IV NOW STA Stop: 05/19/24 01:43 Last Admin: 05/19/24 01:51 Dose: 4 mg Documented By: KANE Ondansetron HCl (Ondansetron Inj 2 Mg/Ml 2 Ml Vial) 4 mg IV NOW STA Stop: 05/18/24 21:47 Last Admin: 05/18/24 22:09 Dose: 4 mg Documented By: JUAN Ondansetron HCl (Ondansetron Inj 2 Mg/Ml 2 Ml Vial) 4 mg IV NOW STA Stop: 05/19/24 03:56 Last Admin: 05/19/24 04:22 Dose: 4 mg Documented By: KANE Imaging Data Radiologist's Impression: Abdomen/Pelvis CT 05/18/24 21:40 Exam(s): CT ABDOMEN + PELVIS With Contrast IV Amt: 92 ml optiray 320 EXAM: CT Abdomen and Pelvis With Intravenous Contrast CLINICAL HISTORY: Reason for exam: abdominal pain, N/V/D. TECHNIQUE: Axial computed tomography images of the abdomen and pelvis with intravenous contrast. CTDI is 21.86 mGy and DLP is 1165.15 mGy-cm. Automated exposure control was utilized for the study. A dose lowering technique was utilized adhering to the principles of ALARA. CONTRAST: Patient received 92 ml optiray 320 of IV contrast COMPARISON: No relevant prior studies available. FINDINGS: Lung bases: Unremarkable. No mass. No consolidation. Mediastinum: Small hiatal hernia with wall thickening of the distal esophagus. ABDOMEN: Liver: Unremarkable. No mass. Gallbladder and bile ducts: Unremarkable. No calcified stones. No ductal dilation. Pancreas: Unremarkable. No mass. No ductal dilation. Spleen: Unremarkable. No splenomegaly. Adrenals: Unremarkable. No mass. Kidneys and ureters: Unremarkable. No solid mass. No hydronephrosis. Stomach and bowel: Mild wall thickening of small bowel, concerning for mild enteritis. No obstruction. PELVIS: Appendix: No findings to suggest acute appendicitis. Bladder: Unremarkable. No mass. Reproductive: Unremarkable as visualized. ABDOMEN and PELVIS: Intraperitoneal space: Unremarkable. No free air. No significant fluid collection. Bones/joints: No acute fracture. No dislocation. Soft tissues: Unremarkable. Vasculature: Unremarkable. No abdominal aortic aneurysm. Lymph nodes: Unremarkable. No enlarged lymph nodes. IMPRESSION: Mild wall thickening of small bowel, concerning for mild enteritis. Electronically signed by: Ramo Gomez MD 05/19/24 00:56 AM Discharge Plan Visit Data Chief Complaint: Flu Like Symptoms Stated Complaint: HAS GASTROPERISOUS,ABD PAIN, DEHYDRATION, VOMITING ED Provider: Franc Jaime ED Midlevel Provider: Eri Ocasio Discharge Problem: Abdominal pain, Nausea vomiting and diarrhea, Acute hyponatremia, Hypomagnesemia, Acute dehydration Patient Disposition: Admitted As Inpatient Condition: Good Discharge Instructions Interventions: ED Discharge Assessment Last Done: 05/19/24 04:18 Discharge Problem: Abdominal pain Qualifiers: Abdominal location: generalized Qualified Code(s): R10.84 - Generalized abdominal pain
[2024-05-18] MEDS: SODIUM CHLORIDE 0.9% 1,000 ML IV STA (21:31)
[2024-05-18] MEDS: KETOROLAC TROMETHAMINE 15 MG/ML VIAL IV ONE (22:08)
[2024-05-18] MEDS: ONDANSETRON INJ 2 MG/ML 2 ML VIAL IV STA (22:09)
[2024-05-18] MEDS: METOCLOPRAMIDE HCL INJ 5 MG/ML 2 ML VIAL IV STA (22:09)
[2024-05-18] MEDS: FAMOTIDINE 20MG IV PUSH 20 MG/5 ML SYR IV STA (22:09)
[2024-05-18 22:28] LABS: Alanine Aminotransferase 13 U/L (7-52); Albumin Globulin Ratio 1.5 (0.9-2); Albumin Level 4.6 gm/dl (3.4-5.0); Alkaline Phosphatase 60 U/L (34-104); Anion Gap 13 (3-11); Aspartate Aminotransferase 20 U/L (13-39); BUN Creatinine Ratio 13.5 (10-20); Bilirubin,Total 0.9 mg/dl (0.2-1.0); Blood Urea Nitrogen 7 mg/dl (6-23); Calcium 8.6 mg/dl (8.6-10.3); Carbon Dioxide 22 mmol/L (21-32); Chloride 87 mmol/L (98-107); Creatinine Clr Calc Pharmacy 185.7 ml/min; Est GFR (African American) > 150.0 ml/min; Est GFR (Non-African American) 132.8 ml/min; Globulin 3.1 gm/dl (2.5-4.0); Glucose 230 mg/dl (70-99(Fasting)); Lipase 10 U/L (11-82); Magnesium 1.2 mg/dl (1.7-2.4); Potassium 3.4 mmol/L (3.5-5.1); Sodium 122 mmol/L (136-145); Total Protein 7.7 gm/dl (6.0-8.3)
[2024-05-18 22:34] LABS: Troponin I High Sensitivity < 2.3 pg/ml (0-14)
[2024-05-18] MEDS: OPTIRAY 320 100ml IV ONE (22:38)
[2024-05-18 22:44] LABS: Basophils # (auto) 0.02 K/uL (0.00-0.20); Basophils % (auto) 0.1 %; Eosinophils # (auto) 0.11 K/uL (0.00-0.50); Eosinophils % (auto) 0.6 %; Hematocrit (blood only) 37.6 % (37.0-47.0); Hemoglobin 13.2 g/dl (12.0-16.0); Immature Granulocytes # (auto) 0.07 K/uL (0.01-0.20); Immature Granulocytes % (auto) 0.4 %; Lymphocytes # (auto) 1.08 K/uL (1.20-3.40); Lymphocytes % (auto) 6.2 %; Mean Corpuscular Hemoglobin 28.6 pg (25.0-34.0); Mean Corpuscular Hgb Conc 35.1 g/dL (32.0-36.0); Mean Corpuscular Volume 81.6 fL (80.0-100.0); Mean Platelet Volume 12.6 fL (9.4-12.4); Monocytes # (auto) 0.55 K/uL (0.11-0.59); Monocytes % (auto) 3.2 %; Neutrophils # (auto) 15.59 K/uL (1.40-6.50); Neutrophils % (auto) 89.5 %; Platelet Count 221 K/uL (130-400); RDW Standard Deviation 35.8 fL (36.4-46.3); Red Blood Count 4.61 M/uL (4.20-5.40); White Blood Count 17.42 K/ul (4.8-10.8)
[2024-05-18 22:55] LABS: Pregnancy Test, Serum Negative (Negative)
[2024-05-18] MEDS: MAGNESIUM SULFATE / D5W 1 GM/100 ML BAG IV STA (23:01)
[2024-05-18] MEDS: MoRPHine SULFATE 4 MG/ML 1 ML CARP\\VIAL IV STA (23:20)
--- NOTE | 2024-05-19 00:58 | CT Scan Report ---
Exam(s): CT ABDOMEN + PELVIS With Contrast IV Amt: 92 ml optiray 320 EXAM: CT Abdomen and Pelvis With Intravenous Contrast CLINICAL HISTORY: Reason for exam: abdominal pain, N/V/D. TECHNIQUE: Axial computed tomography images of the abdomen and pelvis with intravenous contrast. CTDI is 21.86 mGy and DLP is 1165.15 mGy-cm. Automated exposure control was utilized for the study. A dose lowering technique was utilized adhering to the principles of ALARA. CONTRAST: Patient received 92 ml optiray 320 of IV contrast COMPARISON: No relevant prior studies available. FINDINGS: Lung bases: Unremarkable. No mass. No consolidation. Mediastinum: Small hiatal hernia with wall thickening of the distal esophagus. ABDOMEN: Liver: Unremarkable. No mass. Gallbladder and bile ducts: Unremarkable. No calcified stones. No ductal dilation. Pancreas: Unremarkable. No mass. No ductal dilation. Spleen: Unremarkable. No splenomegaly. Adrenals: Unremarkable. No mass. Kidneys and ureters: Unremarkable. No solid mass. No hydronephrosis. Stomach and bowel: Mild wall thickening of small bowel, concerning for mild enteritis. No obstruction. PELVIS: Appendix: No findings to suggest acute appendicitis. Bladder: Unremarkable. No mass. Reproductive: Unremarkable as visualized. ABDOMEN and PELVIS: Intraperitoneal space: Unremarkable. No free air. No significant fluid collection. Bones/joints: No acute fracture. No dislocation. Soft tissues: Unremarkable. Vasculature: Unremarkable. No abdominal aortic aneurysm. Lymph nodes: Unremarkable. No enlarged lymph nodes. IMPRESSION: Mild wall thickening of small bowel, concerning for mild enteritis. Electronically signed by: Ramo Gomez MD 05/19/24 00:56 AM
[2024-05-19 01:28] LABS: Appearance Urine Clear (Clear); Bacteria Urine Automated 2+ (None Seen); Bilirubin Urine Negative (Negative); Blood Urine Trace (Negative); Cast Urine Automated 0-2 /lpf (0-2); Color Urine Yellow; Glucose Urine UA 2+ (Negative); Ketones Urine 3+ (Negative); Leukocyte Esterase Urine Negative (Negative); Nitrite Urine Negative (Negative); Protein Urine Negative (Negative); Specific Gravity Urine > 1.045 (1.000-1.030); Urobilinogen Urine Negative (Negative); WBC Urine Automated 0-5 /hpf (0-5)
[2024-05-19] MEDS: MoRPHine SULFATE 4 MG/ML 1 ML CARP\\VIAL IV STA (01:51)
--- NOTE | 2024-05-19 02:48 | History & Physical Report ---
Date of Service May 19, 2024 Assessment & Plan (1) Cyclical vomiting: Plan: 24F with PMH of gastroparesis, DM1, anxiety/depression, who presents with generalized abdominal pain, nausea, and vomiting x 2 days. Now admitted for management of cyclical vomiting, metabolic derangements. Cyclical Vomiting/Abdominal Pain -Hx gastroparesis, prior (milder) episodes of cyclic vomiting and abdominal pain. Daily marijuana user no previous diagnosis of cannabinoid hyperemesis. -Afebrile. Leukocytosis (WBC-17.42). Na-122, K+ 3.4, Mg-1.2, lipase normal. Wall thickening suggestive of mild enteritis on CT A/P. -S/p IV normal saline, IV antiemetics (Zofran, Reglan, famotidine) in the ER no apparent signs of symptomatic improvement on admission exam. -UA positive with 2+ bacteria, but negative for nitrites, leuk esterase; patient denies dysuria; no chills or flank pain low suspicion for UTI at this time. -Ddx: Cannabinoid hyperemesis, gastritis, functional dyspepsia, PUD, UTI, recurrence of gastroparesis. Pain also out of proportion to enteritis on imaging but cannot exclude as sole/1 cause of symptoms at this time. -Nausea/vomiting refractory (thus far) to multiple antiemetic medications suggests cannabinoid hyperemesis patient also a daily user (medical marijuana for anxiety). -Topical capsaicin might be worth a trial as an alternative antiemetic if patient's nausea/vomiting remains refractory to current antiemetic regimen. * Admit to MedSurg made n.p.o. for bowel rest (except chronic p.o. meds, sips and chips, as tolerated) * Maintenance IVF normal saline@125 mL/h + K rider (40 mEq) * Protonix 40 mg IV daily MARIELLA * Famotidine 20 mg IV twice daily MARIELLA * Zofran 4 mg IV every 4 hours as needed * Phenergan 12.5 mg IV 4 times daily as needed * Pain control as needed: Toradol 15 mg IV every 6 hours; Dilaudid 0.25/0.5 mg IV every 3 hours switch OTC meds to p.o. once able to tolerate. * Opioid bowel regimen * Trend AM labs Hyponatremia -Na 122, on initial workup s/p NS bolus x 1 L in the ED no subsequent labs. Serum osm 259. Ur osm 581. Urine sodium 74. -AAOx4, without confusion, ataxia, respiratory depression, or obtundation. Appears hypovolemic. -Suspect combination of extrarenal, renal sodium losses (mostly extrarenal) in light of patient's vomiting, history of DM1. * Isotonic saline: NS@125 mL/h + K rider consider switching to normal saline with K, since patient requires insulin * Trend Na on a.m. labs, subsequent Q4H BMPs x4 consider adding salt tabs if patient able to tolerate, and/or sodium not improving Hypokalemia/Hypomagnesemia -K 3.4, Mg 1.2 on initial labs. S/p Mg sulfate x 1 g in ER as above, no subsequent labs. -Patient also takes p.o. magnesium 500 mg daily at home held on admission. * IV Mg sulfate x 2 g total ordered on admission * K rider x 40 mEq also ordered on admission * Trend on a.m. labs, Q4 BMP * As above, consider switching mIVF to NS + potassium once administrative underwriter complete, as patient uses insulin daily Type 1 Diabetes -Follows with [facility] and [facility] [place] medicine. Most recent HgbA1c 7.9% (December 2023) -At home, is managed on NovoLog via sliding scale 3 times daily with meals. Carb ratio of 30 g to 1 unit. Not on basal insulin. Has been averaging ~200 units daily, by her estimation. * SSI at mealtime, per protocol (range 100-140, CF = 30, CR = 10) * ACHS checks per protocol Anxiety/Depression * Continue home duloxetine, buspirone Code: Full code Dispo: Med-Surg FEN/GI: NPO. NS @maintenance rate. DVT Prophylaxis: Lovenox 40 mg q24h PT/OT: No Consults: None Case Management: No (2) Hyponatremia with decreased serum osmolality: (3) Hypomagnesemia with normocalciuria: (4) Diabetes type 1, controlled: (5) Anxiety and depression: History of Present Illness Primary Care Provider: Iraida Mayorga MD Sonia is a 24-year-old woman with a past medical history of type 1 diabetes, anxiety, depression, and gastroparesis, who presented to the ER with a complaint of 10/10 abdominal pain and vomiting x 2 days. Patient has had flares in the past with similar symptoms associated with a gastroparesis but describes this episode as worse than usual. ROS + nausea, chest pain, shortness of breath, loose stools, and a history of marijuana use (last used yesterday). Patient also reports a miscarriage that occurred 1 month ago. In the ED, vitals noted for tachycardia to the 100s-110s. Workup was notable for WBC-17.42, Na-122, K+ 3.4, Mg-1.2, PSG-230. Lipase-10. AST/ALT normal. CT A/P notable for "mild wall thickening of small bowel, concerning for mild enteritis." She received a NS bolus x 1 L, IV Reglan, IV Toradol, IV Pepcid, IV Zofran, IV Mg 1 g hospitalist service was then consulted for admission. On admission, she mostly corroborates HPI above. She also admits to smoking marijuana every day. On ROS +, she endorses abdominal pain, nausea, chest pain. Allergies Allergy/AdvReac Type Severity Reaction Status Date / Time Lady Vance Allergy Severe Swelling Uncoded 05/18/24 22:52 and hives Home Medications Medication Instructions Recorded Confirmed Type ondansetron 4 mg disintegrating 4 mg PO TID PRN NAUSEA/VOMITING 10/15/21 05/18/24 Rx tablet #90 tabs Medical Marijauna 1 dose inhalation UD PRN Abdominal 02/20/23 05/18/24 History Pain loratadine 10 mg tablet 10 mg PO DAILY PRN allergy 03/04/23 05/18/24 Rx symptoms #90 tabs buspirone 10 mg tablet 10 mg PO BID PRN Anxiety 03/15/23 05/18/24 History sucralfate 100 mg/mL oral 10 ml PO QID PRN as directed 03/15/23 05/18/24 History suspension (Carafate) levonorgestrel-ethinyl estradiol 1 tab PO QAM #84 tabs 03/19/23 05/18/24 Rx 0.1 mg-20 mcg tablet (Sronyx) glucagon HCl 1 mg solution for 1 mg subcut Q20M PRN hypoglycemia 05/08/23 05/18/24 Rx injection (Glucagon (HCl) #1 ea Emergency Kit) etodolac 200 mg capsule 200 mg PO Q12H PRN pain 05/18/23 05/18/24 History aluminum-mag hydroxide-simethicone 10 ml PO DIRECTED PRN Gi Upset 07/10/23 05/18/24 History 200 mg-200 mg-20 mg/5 mL oral susp insulin aspart U-100 100 unit/mL See Rx Instructions subcut TIDM 01/01/24 05/18/24 Rx (3 mL) subcutaneous pen (Novolog #15 mL FlexPen U-100 Insulin aspart) duloxetine 60 mg capsule,delayed 60 mg PO QAM #90 caps 04/25/24 05/18/24 Rx release magnesium 250 mg tablet 500 mg PO QAM 04/28/24 05/18/24 History Past Med/Surg History Problem List (Updated 05/19/24 @ 04:42 by Eri Ocasio PA-C) Acute dehydration (Acute) Hypomagnesemia (Acute) Acute hyponatremia (Acute) Nausea vomiting and diarrhea (Acute) Abdominal pain (Acute) Hypomagnesemia with normocalciuria Hyponatremia with decreased serum osmolality Vomiting Miscarriage Early stage of Diabetic ulcer of left foot associated with diabetes mellitus due to underlying condition, limited to breakdown of skin (Acute) Inguinal adenopathy (Acute) Leukocytosis (Acute) Lymphangitis (Acute) Cellulitis of foot, left (Acute) Abscess of left foot (Acute) Anxiety and depression Diabetic peripheral neuropathy associated with type 1 diabetes mellitus Personal history of diabetic foot ulcer Gastroparesis Chronic diarrhea IBS (irritable bowel syndrome) (Acute) Hypoglycemia unawareness associated with type 1 diabetes mellitus Insomnia Fecal incontinence Anorectal motility disorder Vitamin D deficiency Cyclical vomiting Diabetic autonomic neuropathy associated with type 1 diabetes mellitus Proliferative diabetic retinopathy associated with type 1 diabetes mellitus Diabetes type 1, controlled Medical History Metatarsal fracture Seizure Surgical History H/O pyloroplasty History of tonsillectomy and adenoidectomy S/P laparoscopy History of colonoscopy History of esophagogastroduodenoscopy (EGD) [place] teeth removed History of ear surgery History of myringotomy H/O eye surgery Family History Mother Family history of diabetes mellitus Grandmother (Maternal) Family history of diabetes mellitus Other Breast cancer Myocardial infarction No family history of adverse response to anesthesia Ovarian cancer Prostate cancer Denies family history of Colorectal cancer Social History Smoking Status: Never smoker Tobacco Type: E-cigarettes / Vaping Cigarettes Per Day: VAPES DAILY>ADVISED; Second Hand Exposure: No; Do You Dip or Chew Tobacco: No; Hx Alcohol Use: No Hx Substance Use: Yes Prescribed Medications: Marijuana Last Used Substance: Hours (ago) Substance Use Type Other:: prescibed to patient Preferred Language: Dominican Communication Ability: Effective Visual Impairment: No Limitations Telex Operator Required: No Beliefs That Will Affect Care: None marital status: Single Current Living Situation: Spouse Current Living Situation Comment: fiance Other Information That Helps Us Care for You: No Feels Safe at Home: Yes Safety Concerns: Feels Safe At This Time Dental Care, Regularly: Yes Physical Activity Frequency: 5-6 Times per Week Assistive Devices: Glasses Review of Systems Review of Systems: All systems reviewed & are unremarkable except as noted in HPI & below Physical Exam Physical Exam: General: No acute distress HEENT: PERRLA. Normal conjunctiva, anicteric sclera. Oropharynx normal. Respiratory: Moderate respiratory effort, CTABL. Cardiovascular: RRR without murmurs, gallops, or rubs. No pedal edema. GI: Soft abdomen with normal bowel sounds heard on auscultation. Diffuse tenderness to mild palpation. Neuro: Alert and oriented x3. Results & Data Results & Data Vital Signs (Past 12 Hours) Vital Signs Temp Pulse Pulse Resp BP BP Pulse Ox 05/19/24 01:19 112 H 05/19/24 01:03 97 05/19/24 01:00 98 H 16 143/82 H 98 05/18/24 23:03 78 16 97 05/18/24 20:55 36.7 C 106 H 18 126/80 98 O2 Del Method 05/19/24 01:19 05/19/24 01:03 Room Air 05/19/24 01:00 Room Air 05/18/24 23:03 Room Air 05/18/24 20:55 Room Air Supervising Physician Co-Signing Physician Notes Attending addendum: I have physically seen this patient, have supervised the medical residents activities, and agree with the H&P unless as otherwise noted. Assessment and Plan: Intractable nausea and vomiting/gastroparesis/cannabinoid hyperemesis syndrome- Received the following from the ED: Normal saline IV, Zofran IV, Reglan IV, without significant improvement CT scan abdomen pelvis suggests mild enteritis Protonix 40 mg IV daily Zofran 4 mg IV every 4 hours as needed Phenergan 12.5 mg IV every 6 hours as needed Toradol 15 mg IV every 6 hours as needed Avoidance of narcotics Medical surgical for bowel rest primarily n.p.o. except essential medications Hyponatremia- Sodium 122 on admission Serum and urine osmolalities pending IV fluid rehydration Repeat laboratories in a.m. Hypomagnesemia/hypokalemia- Magnesium 1.2 on admission Potassium 3.4 Replaced IV, recheck laboratories in a.m. Diabetes mellitus type 1- Some adjustment as noted Anxiety with depression- Continue duloxetine and buspirone Resident Activity Tracking Resident Involvement: Resident Care Provided Care Provided: Adult Hospital Medicine (4) Diabetes type 1, controlled Diabetes mellitus complication status: with unspecified complications Qualified Code(s): E10.8 - Type 1 diabetes mellitus with unspecified complications
[2024-05-19] MEDS: MAGNESIUM SULFATE / D5W 1 GM/100 ML BAG IV SCH ×2 (03:22→06:24)
[2024-05-19] MEDS ORDERED: LACTATED RINGER'S 1,000 ML IV SCH (03:30)
[2024-05-19] MEDS: SODIUM CHLORIDE 0.9% 1,000 ML IV SCH (03:36)
[2024-05-19] MEDS: ONDANSETRON INJ 2 MG/ML 2 ML VIAL IV STA (04:22)
[2024-05-19] MEDS ORDERED: MAGNESIUM HYDROXIDE SUSP 30 ML UDC PO PRN (04:33)
[2024-05-19] MEDS ORDERED: CARBOHYDRATES FOR HYPOGLYCEMIA PO PRN (04:33)
[2024-05-19] MEDS ORDERED: GLUCAGON FOR INJ 1 MG VIAL SQ PRN (04:33)
[2024-05-19] MEDS ORDERED: busPIRone 5 MG TAB PO PRN (04:33)
[2024-05-19] MEDS ORDERED: GLUCOSE 10 TAB/TUBE PO PRN (04:33)
[2024-05-19] MEDS ORDERED: GLUCOSE 40% GEL 15 GM TUBE PO PRN (04:33)
[2024-05-19] MEDS ORDERED: DEXTROSE 50% 50 ML SYRINGE IV PRN (04:33)
[2024-05-19] MEDS ORDERED: ONDANSETRON INJ 2 MG/ML 2 ML VIAL IV PRN (04:33)
[2024-05-19] MEDS ORDERED: Nursing to Pharmacy Communication SCH ×3 (04:45→16:45)
[2024-05-19] MEDS ORDERED: PROMETHAZINE 12.5 MG/50.5 ML BAG IV PRN (04:51)
[2024-05-19] MEDS: INSULIN ASPART PER UNIT CHARGE SC SCH ×2 (05:02→20:50)
[2024-05-19] MEDS: POTASSIUM CHLORIDE / WTR 10 MEQ/100 ML PLCT IV SCH (05:04)
[2024-05-19] MEDS: HYDROmorphone INJ 0.5 MG/0.5 ML SYR IV PRN (05:34)
--- NOTE | 2024-05-19 05:50 | Billing Data ---
Date of Service May 19, 2024 Coding Level of Care Code 96229 INT INP/OBS CARE
[2024-05-19 06:08] LABS: Basophils # (auto) 0.01 K/uL (0.00-0.20); Basophils % (auto) 0.1 %; Eosinophils # (auto) 0.06 K/uL (0.00-0.50); Eosinophils % (auto) 0.4 %; Hematocrit (blood only) 34.1 % (37.0-47.0); Hemoglobin 11.9 g/dl (12.0-16.0); Immature Granulocytes # (auto) 0.05 K/uL (0.01-0.20); Immature Granulocytes % (auto) 0.4 %; Lymphocytes # (auto) 1.22 K/uL (1.20-3.40); Lymphocytes % (auto) 9.1 %; Mean Corpuscular Hemoglobin 28.5 pg (25.0-34.0); Mean Corpuscular Hgb Conc 34.9 g/dL (32.0-36.0); Mean Corpuscular Volume 81.6 fL (80.0-100.0); Mean Platelet Volume 12.2 fL (9.4-12.4); Neutrophils # (auto) 11.28 K/uL (1.40-6.50); Platelet Count 210 K/uL (130-400); RDW Coefficient of Variation 11.9 % (11.5-14.5); RDW Standard Deviation 35.8 fL (36.4-46.3); Red Blood Count 4.18 M/uL (4.20-5.40); White Blood Count 13.42 K/ul (4.8-10.8)
[2024-05-19 06:17] LABS: Alanine Aminotransferase 10 U/L (7-52); Albumin Globulin Ratio 1.6 (0.9-2); Alkaline Phosphatase 52 U/L (34-104); Anion Gap 10 (3-11); Aspartate Aminotransferase 13 U/L (13-39); BUN Creatinine Ratio 13.7 (10-20); Bilirubin,Total 0.8 mg/dl (0.2-1.0); Blood Urea Nitrogen 7 mg/dl (6-23); Calcium 8.1 mg/dl (8.6-10.3); Carbon Dioxide 23 mmol/L (21-32); Chloride 91 mmol/L (98-107); Creatinine Clr Calc Pharmacy 189.4 ml/min; Est GFR (African American) > 150.0 ml/min; Est GFR (Non-African American) 133.6 ml/min; Globulin 2.5 gm/dl (2.5-4.0); Glucose 197 mg/dl (70-99(Fasting)); Phosphorus 2.1 mg/dl (2.5-4.9); Potassium 3.3 mmol/L (3.5-5.1); Sodium 124 mmol/L (136-145); Total Protein 6.5 gm/dl (6.0-8.3)
[2024-05-19 07:54] LABS: Anion Gap 7 (3-11); BUN Creatinine Ratio 15.6 (10-20); Blood Urea Nitrogen 7 mg/dl (6-23); Calcium 7.9 mg/dl (8.6-10.3); Carbon Dioxide 25 mmol/L (21-32); Chloride 92 mmol/L (98-107); Creatinine Clr Calc Pharmacy 214.6 ml/min; Est GFR (African American) > 150.0 ml/min; Est GFR (Non-African American) 139.3 ml/min; Glucose 198 mg/dl (70-99(Fasting)); Potassium 3.5 mmol/L (3.5-5.1); Sodium 124 mmol/L (136-145)
--- NOTE | 2024-05-19 08:05 | XRay Report ---
SINGLE VIEW CHEST CLINICAL HISTORY: Atypical chest pain. FINDINGS: 2 AP, portable, upright chest radiographs are compared to study dated 04/27/2023. The cardio mediastinal silhouette is unremarkable. The lungs and pleural spaces are clear. No pneumothorax is se en. The bony thorax is grossly intact. Bilateral nipple piercings are noted. IMPRESSION: No active disease in the chest. ACT 112: Negative or not required by law. Electronically signed by: Chuy Hickey M.D. 05/19/2024 8:03 AM
[2024-05-19 08:40] LABS: Estimated Average Glucose 131 mg/dl; Hemoglobin A1C 6.2 % (4.5-5.6)
[2024-05-19] MEDS: KETOROLAC TROMETHAMINE 15 MG/ML VIAL IV PRN ×2 (09:01→16:17)
--- NOTE | 2024-05-19 09:17 | Hospitalist Progress Note ---
Date of Service May 19, 2024 Assessment & Plan (1) Cyclical vomiting: Plan: 24F with PMH of gastroparesis, DM1, anxiety/depression, who presents with generalized abdominal pain, nausea, and vomiting x 2 days. Now admitted for management of cyclical vomiting, metabolic derangements. Cyclical Vomiting/Abdominal Pain -Hx gastroparesis, prior (milder) episodes of cyclic vomiting and abdominal pain. Daily marijuana user no previous diagnosis of cannabinoid hyperemesis. -Afebrile. Leukocytosis (WBC-17.42). Na-122, K+ 3.4, Mg-1.2, lipase normal. Wall thickening suggestive of mild enteritis on CT A/P. -S/p IV normal saline, IV antiemetics (Zofran, Reglan, famotidine) in the ER no apparent signs of symptomatic improvement on admission exam. -UA positive with 2+ bacteria, but negative for nitrites, leuk esterase; patient denies dysuria; no chills or flank pain low suspicion for UTI at this time. Urine culture pending -Ddx: Cannabinoid hyperemesis, gastritis, functional dyspepsia, PUD, UTI, recurrence of gastroparesis. -Nausea/vomiting resolved * Maintenance IVF normal saline@125 mL/h * Protonix 40 mg IV daily MARIELLA * Famotidine 20 mg IV twice daily MARIELLA * Zofran 4 mg IV every 4 hours as needed * Phenergan 12.5 mg IV 4 times daily as needed * Pain control as needed: Toradol 15 mg IV every 6 hours; Dilaudid 0.25/0.5 mg IV every 3 hours * Opioid bowel regimen * Trend AM labs * Miscarriage - noted 04/2024, f/u US was never completed - given abdominal pain, check transvaginal US to r/u reattained products of conception Hyponatremia -Na 122 now up to 129. Serum osm 259. Ur osm 581. Urine sodium 74. -AAOx4, without confusion, ataxia, respiratory depression, or obtundation. Appears hypovolemic. -Suspect combination of extrarenal, renal sodium losses (mostly extrarenal) in light of patient's vomiting, history of DM1. * Isotonic saline: NS@125 mL/h Hypokalemia/Hypomagnesemia -K 3.4, Mg 1.2 on initial labs. S/p Mg sulfate x 1 g in ER as above, no subsequent labs. -Patient also takes p.o. magnesium 500 mg daily at home held on admission. * Trend on a.m. labs, Q4 BMP and replace as needed Type 1 Diabetes -Follows with [facility] endocrinology and [facility] family medicine. Most recent HgbA1c 7.9% (December 2023) -At home, is managed on NovoLog via sliding scale 3 times daily with meals. Carb ratio of 30 g to 1 unit. Not on basal insulin. Has been averaging ~200 units daily, by her estimation. * SSI at mealtime, per protocol (range 100-140, CF = 30, CR = 10) * ACHS checks per protocol Anxiety/Depression * Continue home duloxetine, buspirone (2) Hyponatremia with decreased serum osmolality: (3) Hypomagnesemia with normocalciuria: (4) Diabetes type 1, controlled: (5) Anxiety and depression: Admission and Anticipated Discharge Date Admission Date: May 19, 2024 Supervising Physician Co-Signing Physician Notes I personally examined the patient and verified davis points of history and exam, discussed case, and agree with decision making and plan documented by Dr. Giordano on. Patient is a 24-year-old female with history of T1DM, gastroparesis, anxiety/depression on admission for cyclic vomiting and abdominal pain. Electrolytes will be repleted and monitored. Patient lying in bed, lungs clear b/l to anterior auscultation, regular rate and rhythm, abdomen soft but diffusely tender, no acute distress. Transvaginal ultrasound negative. In addition to pain regimen above, IV acetaminophen ordered. Patient advised to advance diet as tolerated, starting with clears. Advised patient to attempt to limit opioids as this could complicate GI function. Subjective Saw pt at bedside this morning. Nausea resolved. Continues to have abdominal pain, but improving.-> diffuse. BM yesterday. Review of Systems Review of Systems: As per above Physical Exam Physical Exam: Constitutional: well-appearing, no acute distress HEENT: NCAT, no conjunctival injection CV: regular rhythm, no murmur appreciated, extremities well-perfused, no LE edema Resp: CTABL, no wheezes/rales/rhonchi appreciated, no increased work of breathing GI: soft, nondistended, + diffuse tenderness, BS normoactive MSK: no gross deformities appreciated Skin: warm, dry, no rash appreciated Neuro: alert, oriented, no focal neurologic deficit appreciated Results & Data Results & Data Vital Signs (Past 12 Hours) Vital Signs Temp Pulse Pulse Resp BP Pulse Ox O2 Del Method 05/19/24 07:46 96 H 166/96 H 98 Room Air 05/19/24 07:25 36.7 C 99 H 16 169/95 H 97 Room Air 05/19/24 04:30 37.1 C 95 H 16 157/91 H 98 Room Air 05/19/24 04:05 37.1 C 95 H 18 137/85 96 Room Air 05/19/24 03:30 105 H 14 96 Room Air 05/19/24 02:12 102 H 21 05/19/24 01:19 112 H 05/19/24 01:03 97 Room Air 05/19/24 01:00 98 H 16 143/82 H 98 Room Air 05/18/24 23:03 78 16 97 Room Air Resident Activity Tracking Resident Involvement: Resident Care Provided Care Provided: Adult Hospital Medicine (4) Diabetes type 1, controlled Diabetes mellitus complication status: with unspecified complications Qualified Code(s): E10.8 - Type 1 diabetes mellitus with unspecified complications
[2024-05-19] MEDS: DULoxetine HCL 60 MG CAP PO SCH (09:57)
[2024-05-19] MEDS: FAMOTIDINE 20MG IV PUSH 20 MG/5 ML SYR IV SCH (09:58)
[2024-05-19] MEDS: ENOXAPARIN INJ 40 MG/0.4 ML SYR SQ SCH (09:58)
[2024-05-19] MEDS: POLYETHYLENE (MIRALAX) 17 GM PACK PO SCH (09:58)
[2024-05-19 10:49] LABS: Anion Gap 9 (3-11); BUN Creatinine Ratio 12.8 (10-20); Blood Urea Nitrogen 6 mg/dl (6-23); Calcium 8.4 mg/dl (8.6-10.3); Carbon Dioxide 24 mmol/L (21-32); Chloride 96 mmol/L (98-107); Creatinine Clr Calc Pharmacy 205.5 ml/min; Est GFR (African American) > 150.0 ml/min; Est GFR (Non-African American) 137.3 ml/min; Glucose 226 mg/dl (70-99(Fasting)); Magnesium 2.2 mg/dl (1.7-2.4); Sodium 129 mmol/L (136-145)
[2024-05-19] MEDS: PANTOprazole 40 MG in SYRINGE 0 ML IV SCH (11:23)
--- NOTE | 2024-05-19 14:26 | Ultrasound Report ---
US pelvic complete CLINICAL HISTORY: History of miscarriage- r/u retained products TECHNIQUE: Real-time sonographic images of the pelvic contents were obtained with transabdominal and transvaginal technique. Comparison: Comparison is made to pelvic ultrasound 04/21/2024 FINDINGS: The uterus measures 9.1 x 3.0 x 4.3 cm. The endometrial cavity echo stripe measures 0.6 cm in thickne ss. The uterus is normal in appearance. The right ovary measures 2.6 cm. The left ovary measures 3.4 cm. Normal appearance of the ovaries ailyn aterally. There was no fluid in the cul-de-sac. Incidentally noted, a post void residual measures 449 mL. IMPRESSION: 1. No abnormality of the uterus and ovaries is visualized. 2. Prominent postvoid residual is noted. ACT 112: Negative or not required by law. Electronically signed by: Richard Gallo M.D. 05/19/2024 2:24 PM
--- NOTE | 2024-05-19 14:45 | Electrocardiogram Report ---
Test Reason : Blood Pressure : */* mmHG Vent. Rate : 94 BPM Atrial Rate : 94 BPM P-R Int : 138 ms QRS Dur : 92 ms QT Int : 390 ms P-R-T Axes : 67 64 36 degrees QTcB Int : 487 ms Normal sinus rhythm Abnormal ECG When compared with ECG of 03-Mar-2022 16:41, Nonspecific T wave abnormality no longer evident in Anterolateral leads Confirmed by Miguel Colin ([id number]) on 05/19/2024 2:44:49 PM Referred By: REFERRED SELF Confirmed By: Miguel Colin
[2024-05-19 15:34] LABS: Anion Gap 8 (3-11); BUN Creatinine Ratio 12.7 (10-20); Blood Urea Nitrogen 7 mg/dl (6-23); Calcium 8.8 mg/dl (8.6-10.3); Carbon Dioxide 25 mmol/L (21-32); Chloride 98 mmol/L (98-107); Creatinine Clr Calc Pharmacy 175.6 ml/min; Est GFR (African American) > 150.0 ml/min; Est GFR (Non-African American) 130.4 ml/min; Glucose 175 mg/dl (70-99(Fasting)); Potassium 3.7 mmol/L (3.5-5.1); Sodium 131 mmol/L (136-145)
[2024-05-19] MEDS: INSULIN ASPART PER UNIT CHARGE SC ONE (17:30)
[2024-05-19] MEDS: SODIUM CHLORIDE 0.45 % 1,000 ML IV SCH (19:57)
[2024-05-20] MEDS ORDERED: INSULIN ASPART PER UNIT CHARGE SC SCH
[2024-05-20 00:47] LABS: Anion Gap 7 (3-11); BUN Creatinine Ratio 16.3 (10-20); Blood Urea Nitrogen 7 mg/dl (6-23); Calcium 8.4 mg/dl (8.6-10.3); Carbon Dioxide 25 mmol/L (21-32); Chloride 99 mmol/L (98-107); Creatinine Clr Calc Pharmacy 224.6 ml/min; Est GFR (African American) > 150.0 ml/min; Est GFR (Non-African American) 141.4 ml/min; Glucose 167 mg/dl (70-99(Fasting)); Potassium 3.7 mmol/L (3.5-5.1); Sodium 131 mmol/L (136-145)
--- NOTE | 2024-05-20 06:57 | Hospitalist Progress Note ---
Date of Service May 20, 2024 Assessment & Plan (1) Cyclical vomiting: (2) Hyponatremia with decreased serum osmolality: (3) Hypomagnesemia with normocalciuria: (4) Diabetes type 1, controlled: (5) Anxiety and depression: Plan 24F with PMH of gastroparesis, DM1, anxiety/depression, who presents with generalized abdominal pain, nausea, and vomiting x 2 days. Now admitted for management of cyclical vomiting, metabolic derangements. 1) Cyclical Vomiting/Abdominal Pain -Hx gastroparesis, prior (milder) episodes of cyclic vomiting, AP. Daily marijuana user, no previous Dx of cannabinoid hyperemesis. -Afebrile. - Wall thickening suggestive of mild enteritis on CT A/P. -Leukocytosis (WBC, 13.4 <-- 17.4), improving. Na, 131, K, 3.7, Mg, 2.2, on admission (see more below). Lipase normal. -S/p IV normal saline, IV antiemetics (Zofran, Reglan, famotidine) in the ER nausea improving - CT-AP: Mild wall thickening of small bowel, concerning for mild enteritis. -Ddx: Cannabinoid hyperemesis, gastritis, functional dyspepsia, PUD, UTI, recurrence of gastroparesis. -Nausea/vomiting resolved * Maintenance IVF normal saline@125 mL/h * Protonix 40 mg IV daily MARIELLA; Famotidine 20 mg IV twice daily MARIELLA * Zofran 4 mg IV every 4 hours as needed; Phenergan 12.5 mg IV 4 times daily as needed * Pain control as needed: Toradol 15 mg IV every 6 hours; Dilaudid 0.25 mg IV every 3 hours * Opioid bowel regimen, and bentyl, 10 mg, PO, TID * Trend AM lab 2) Miscarriage #resolved - noted 04/2024, f/u US was never completed - given abdominal pain, check transvaginal US to r/u retained products of conception - IMPRESSION: no abnormality of uterus or ovaries visualized, prominent postvoid residual noted 3) Hyponatremia -Na, 131 <-- 122. (Serum osm 259. Ur osm 581. Urine sodium 74). -AAOx4, without confusion, ataxia, respiratory depression, or obtundation. Appears hypovolemic. -Suspect combination of extrarenal, renal sodium losses (mostly extrarenal) in light of patient's vomiting, history of DM1. * Isotonic saline: NS@125 mL/h * NSS, 125 mL/hr, 1000 mL ordered on 05/20/24 4) Hypokalemia/Hypomagnesemia #resolved, continue to monitor -K, 3.7 <-- 3.4; Mg, 2.2 <-- 1.2. S/p Mg sulfate x 1 g in ER -Patient also takes p.o. magnesium 500 mg daily at home held on admission. * Trend w/ AM BMP, Mg and replace as needed 5) Type 1 Diabetes -Follows with [facility] end[facility] and [facility] family medicine. Most recent A1c 7.9% (December 2023) -At home, is managed on NovoLog via sliding scale 3 times daily with meals. Carb ratio of 30 g to 1 unit. Not on basal insulin. Has been averaging ~200 units daily, by her estimation. * SSI at mealtime, per protocol (range 100-140, CF = 30, CR = 10) * ACHS checks per protocol * 6) Anxiety/Depression * Continue home duloxetine, buspirone Code status: Full code Disposition: Med-Surg VTE Prophylaxis: Lovenox, 40 mg, subQ AM, daily FENGI: Carb count--type 1 diet Admission and Anticipated Discharge Date Admission Date: May 19, 2024 Supervising Physician Co-Signing Physician Notes Attending Physician Supervision Note: I independently interviewed and examined the patient and verified the davis history and physical, reviewed labs and image studies and agree with findings and care plan noted above. 24 y/o with T1DM, gastroparesis, anxiety/depression on admission for cyclic vomiting and abdominal pain. Abdominal pain - CT with small bowel wall thickening. TV US negative. H/o Type 1DM Pain persistent but exam noncontributory since she reports severe pain with touching the skin. -No diarrhea. For possible bowel spasm as etiology -will add bentyl. -continue pain control with tylenol. wean IV hydromorphone. -further evaluation in am. -continue PPI, pepcid, zofran -continue clears, IVF. -consider GI consult for assessment. -Consider psych assessment in am for ? somatization in setting of recent miscarriage. -prn vistaril added for possible concern of underlying anxiety contributing. Miscarriage - 04/30/2024. no acute concern Subjective Saw pt at bedside this morning. Continues to experience mild, intermittent nausea. Continues to have abdominal pain, better than admission but not back to normal. Patient had a BM yesterday morning but has not had one since, does not feel constipated. Patient has a medical marijuana card, uses daily cannabis for anxiety. Had not changed the strain she was using or dispensary she was buying from recently or was smoking any more than normal. Review of Systems Constitutional: + fatigue and + weakness; no fever and n o chills Eyes: no diplopia and no worsening vision Respiratory: no cough, no chest congestion and no dyspnea Cardiovascular: no chest pain and no palpitations Gastrointestinal: + abdominal pain (7/10 diffuse pain) and + nausea (intermittent nausea); no vomiting, no constipation, no diarrhea/loose stools and no blood in stools Genitourinary: no dysuria, no urinary frequency and no urinary urgency Integumentary: no rash and no lesions Neurologic: + generalized weakness; no tingling, no numbness, no lack of coordination and no headache(s) Physical Exam Constitutional: WD/WN, vitals as above Respiratory: normal respiratory effort, lungs clear to auscultation Cardiovascular: RRR, no murmur, no edema Extremities: normal capillary refill; no calf tenderness and no pedal edema Gastrointestinal (Abdomen): Inspection/Auscultation: abdomen normal to inspection and + hypoactive bowel sounds; abdomen not distended Percussion/Palpation: + abdomen tender (diffuse tender w/ palpation) and abdomen soft; no hepatosplenomegaly Psychiatric: A+Ox3, euthymic affect Results & Data Results & Data Vital Signs (Past 12 Hours) Vital Signs Temp Pulse Resp BP Pulse Ox O2 Del Method 05/19/24 22:41 36.8 C 89 16 179/93 H 97 Room Air Diagnostic Findings Transvaginal US 05/19/24 10:12 US pelvic complete CLINICAL HISTORY: History of miscarriage- r/u retained products TECHNIQUE: Real-time sonographic images of the pelvic contents were obtained with transabdominal and transvaginal technique. Comparison: Comparison is made to pelvic ultrasound 04/21/2024 FINDINGS: The uterus measures 9.1 x 3.0 x 4.3 cm. The endometrial cavity echo stripe measures 0.6 cm in thickness. The uterus is normal in appearance. The right ovary measures 2.6 cm. The left ovary measures 3.4 cm. Normal appearance of the ovaries bilaterally. There was no fluid in the cul-de-sac. Incidentally noted, a post void residual measures 449 mL. IMPRESSION: 1. No abnormality of the uterus and ovaries is visualized. 2. Prominent postvoid residual is noted. ACT 112: Negative or not required by law. Electronically signed by: Richard Gallo M.D. 05/19/2024 2:24 PM Pelvis Ultrasound 05/19/24 10:13 US pelvic complete CLINICAL HISTORY: History of miscarriage- r/u retained products TECHNIQUE: Real-time sonographic images of the pelvic contents were obtained with transabdominal and transvaginal technique. Comparison: Comparison is made to pelvic ultrasound 04/21/2024 FINDINGS: The uterus measures 9.1 x 3.0 x 4.3 cm. The endometrial cavity echo stripe measures 0.6 cm in thickness. The uterus is normal in appearance. The right ovary measures 2.6 cm. The left ovary measures 3.4 cm. Normal appearance of the ovaries bilaterally. There was no fluid in the cul-de-sac. Incidentally noted, a post void residual measures 449 mL. IMPRESSION: 1. No abnormality of the uterus and ovaries is visualized. 2. Prominent postvoid residual is noted. ACT 112: Negative or not required by law. Electronically signed by: Richard Gallo M.D. 05/19/2024 2:24 PM Resident Activity Tracking Resident Involvement: Resident Care Provided Care Provided: Adult Hospital Medicine (4) Diabetes type 1, controlled Diabetes mellitus complication status: with unspecified complications Qualified Code(s): E10.8 - Type 1 diabetes mellitus with unspecified complications
[2024-05-20 07:50] LABS: Basophils # (auto) 0.01 K/uL (0.00-0.20); Basophils % (auto) 0.1 %; Eosinophils # (auto) 0.01 K/uL (0.00-0.50); Eosinophils % (auto) 0.1 %; Hematocrit (blood only) 33.1 % (37.0-47.0); Hemoglobin 11.5 g/dl (12.0-16.0); Immature Granulocytes # (auto) 0.06 K/uL (0.01-0.20); Immature Granulocytes % (auto) 0.5 %; Lymphocytes # (auto) 1.18 K/uL (1.20-3.40); Lymphocytes % (auto) 10.6 %; Mean Corpuscular Hemoglobin 28.4 pg (25.0-34.0); Mean Corpuscular Hgb Conc 34.7 g/dL (32.0-36.0); Mean Corpuscular Volume 81.7 fL (80.0-100.0); Mean Platelet Volume 12.5 fL (9.4-12.4); Monocytes # (auto) 0.82 K/uL (0.11-0.59); Monocytes % (auto) 7.4 %; Neutrophils # (auto) 9.04 K/uL (1.40-6.50); Neutrophils % (auto) 81.3 %; Platelet Count 208 K/uL (130-400); RDW Standard Deviation 36.5 fL (36.4-46.3); Red Blood Count 4.05 M/uL (4.20-5.40); White Blood Count 11.12 K/ul (4.8-10.8)
[2024-05-20 08:06] LABS: Alanine Aminotransferase 9 U/L (7-52); Albumin Globulin Ratio 1.5 (0.9-2); Albumin Level 3.7 gm/dl (3.4-5.0); Alkaline Phosphatase 47 U/L (34-104); Anion Gap 7 (3-11); Aspartate Aminotransferase 11 U/L (13-39); BUN Creatinine Ratio 16.7 (10-20); Bilirubin,Total 0.5 mg/dl (0.2-1.0); Blood Urea Nitrogen 7 mg/dl (6-23); Calcium 8.1 mg/dl (8.6-10.3); Carbon Dioxide 26 mmol/L (21-32); Chloride 96 mmol/L (98-107); Est GFR (African American) > 150.0 ml/min; Est GFR (Non-African American) 142.5 ml/min; Globulin 2.4 gm/dl (2.5-4.0); Glucose 194 mg/dl (70-99(Fasting)); Magnesium 1.8 mg/dl (1.7-2.4); Phosphorus 2.2 mg/dl (2.5-4.9); Potassium 3.6 mmol/L (3.5-5.1); Sodium 129 mmol/L (136-145); Total Protein 6.1 gm/dl (6.0-8.3)
[2024-05-20] MEDS: HYDROmorphone INJ 0.5 MG/0.5 ML SYR IV PRN ×2 (08:13→16:41)
[2024-05-20] MEDS: SODIUM CHLORIDE 0.9% 1,000 ML IV SCH (08:16)
[2024-05-20] MEDS ORDERED: hydrOXYzine HCl 10 MG TAB PO PRN (13:12)
[2024-05-20] MEDS: ACETAMINOPHEN 1,000 MG/100 ML VIAL IV PRN (13:38)
[2024-05-20] MEDS: DICYCLOMINE HCL 10 MG CAP PO SCH (13:51)
[2024-05-20 14:57] LABS: Adenovirus F 40/41 PCR Not Detected (NotDetected); Astrovirus PCR Not Detected (NotDetected); Campylobacter PCR Not Detected (NotDetected); Cryptosporidium PCR Not Detected (NotDetected); Cyclospora cayetanensis PCR Not Detected (NotDetected); Entamoeba histolytica PCR Not Detected (NotDetected); Enteroaggregative E.coli(EAEC) Not Detected (NotDetected); Enteropathogenic E.coli (EPEC) Not Detected (NotDetected); Enterotoxigenic E.coli (ETEC) Not Detected (NotDetected); Giardia lamblia PCR Not Detected (NotDetected); Norovirus GI/GII PCR Not Detected (NotDetected); Plesiomonas shigelloides PCR Not Detected (NotDetected); Rotavirus A PCR Not Detected (NotDetected); Salmonella PCR Not Detected (NotDetected); Sapovirus PCR Not Detected (NotDetected); Shiga-like Toxin E.coli (STEC) Not Detected (NotDetected); Shigella/Enteroinvasive E.coli Not Detected (NotDetected); Vibrio cholerae PCR Not Detected (NotDetected); Vibrio species PCR Not Detected (NotDetected); Yersinia enterocolitica PCR Not Detected (NotDetected)
[2024-05-21 06:53] LABS: Basophils # (auto) 0.01 K/uL (0.00-0.20); Basophils % (auto) 0.1 %; Eosinophils # (auto) 0.02 K/uL (0.00-0.50); Eosinophils % (auto) 0.2 %; Hemoglobin 12.6 g/dl (12.0-16.0); Immature Granulocytes # (auto) 0.03 K/uL (0.01-0.20); Immature Granulocytes % (auto) 0.3 %; Lymphocytes # (auto) 1.48 K/uL (1.20-3.40); Lymphocytes % (auto) 16.6 %; Mean Corpuscular Hemoglobin 28.6 pg (25.0-34.0); Mean Corpuscular Volume 81.8 fL (80.0-100.0); Mean Platelet Volume 12.4 fL (9.4-12.4); Monocytes # (auto) 1.03 K/uL (0.11-0.59); Monocytes % (auto) 11.6 %; Neutrophils # (auto) 6.34 K/uL (1.40-6.50); Neutrophils % (auto) 71.2 %; Platelet Count 219 K/uL (130-400); RDW Coefficient of Variation 12.1 % (11.5-14.5); RDW Standard Deviation 36.3 fL (36.4-46.3); White Blood Count 8.91 K/ul (4.8-10.8)
[2024-05-21 07:27] LABS: Alanine Aminotransferase 8 U/L (7-52); Albumin Globulin Ratio 1.5 (0.9-2); Albumin Level 3.9 gm/dl (3.4-5.0); Alkaline Phosphatase 49 U/L (34-104); Anion Gap 8 (3-11); Aspartate Aminotransferase 11 U/L (13-39); BUN Creatinine Ratio 12.8 (10-20); Bilirubin,Total 0.5 mg/dl (0.2-1.0); Blood Urea Nitrogen 6 mg/dl (6-23); Calcium 8.5 mg/dl (8.6-10.3); Carbon Dioxide 26 mmol/L (21-32); Chloride 100 mmol/L (98-107); Creatinine Clr Calc Pharmacy 205.5 ml/min; Est GFR (African American) > 150.0 ml/min; Est GFR (Non-African American) 137.3 ml/min; Globulin 2.6 gm/dl (2.5-4.0); Glucose 154 mg/dl (70-99(Fasting)); Magnesium 1.9 mg/dl (1.7-2.4); Potassium 3.4 mmol/L (3.5-5.1); Sodium 134 mmol/L (136-145); Total Protein 6.5 gm/dl (6.0-8.3)
[2024-05-21 08:06] VITALS: PULSE 96; RESP 14; TEMP 98.1; O2SAT 97
[2024-05-21] MEDS: POTASSIUM CHLORIDE CRTAB 20 MEQ TABCR PO STA (08:48)
--- NOTE | 2024-05-21 13:49 | Discharge Summary ---
Date of Service May 21, 2024 Admission HPI Per Admitting Provider Sonia is a 24-year-old woman with a past medical history of type 1 diabetes, anxiety, depression, and gastroparesis, who presented to the ER with a complaint of 10/10 abdominal pain and vomiting x 2 days. Patient has had flares in the past with similar symptoms associated with a gastroparesis but describes this episode as worse than usual. ROS + nausea, chest pain, shortness of breath, loose stools, and a history of marijuana use (last used yesterday). Patient also reports a miscarriage that occurred 1 month ago. In the ED, vitals noted for tachycardia to the 100s-110s. Workup was notable for WBC-17.42, Na-122, K+ 3.4, Mg-1.2, PSG-230. Lipase-10. AST/ALT normal. CT A/P notable for "mild wall thickening of small bowel, concerning for mild enteritis." She received a NS bolus x 1 L, IV Reglan, IV Toradol, IV Pepcid, IV Zofran, IV Mg 1 g hospitalist service was then consulted for admission. On admission, she mostly corroborates HPI above. She also admits to smoking marijuana every day. On ROS +, she endorses abdominal pain, nausea, chest pain. Admission Exam Per Admitting Provider General: No acute distress HEENT: PERRLA. Normal conjunctiva, anicteric sclera. Oropharynx normal. Respiratory: Moderate respiratory effort, CTABL. Cardiovascular: RRR without murmurs, gallops, or rubs. No pedal edema. GI: Soft abdomen with normal bowel sounds heard on auscultation. Diffuse tenderness to mild palpation. Neuro: Alert and oriented x3. Principal Diagnosis Enteritis Discharge Exam Constitutional: well-appearing, no acute distress HEENT: NCAT, no conjunctival injection CV: regular rhythm, no murmur appreciated, extremities well-perfused, no LE edema Resp: CTABL, no wheezes/rales/rhonchi appreciated, no increased work of breathing GI: soft, nondistended, mild global tenderness, BS normoactive MSK: no gross deformities appreciated Skin: warm, dry, no rash appreciated Neuro: alert, oriented, no focal neurologic deficit appreciated Discharge Data Allergies Allergy/AdvReac Type Severity Reaction Status Date / Time insect venom Allergy Severe Hives Verified 05/19/24 16:55 No Known Drug Allergies Allergy Unknown Verified 05/19/24 16:53 Consultations 05/19/24 01:42 ED Decision to Admit Stat Ordered Studies 05/18/24 21:40 CT abd pelvis IV con only Stat 05/19/24 10:12 US transvaginal Urgent 05/19/24 10:13 US pelvic complete Urgent Hospital Course (1) Cyclical vomiting: (2) Hyponatremia with decreased serum osmolality: (3) Hypomagnesemia with normocalciuria: (4) Diabetes type 1, controlled: (5) Anxiety and depression: Plan 24F with PMH of gastroparesis, DM1, anxiety/depression, who presents with generalized abdominal pain, nausea, and vomiting x 2 days. Now admitted for management of cyclical vomiting, metabolic derangements. 1) Nausea/Vomiting/Abdominal pain -Likely combination of enteritis and degree of IBS -Hx gastroparesis, prior (milder) episodes of cyclic vomiting. -Remained afebrile through hospitalization -CTAP with small intestinal wall thickening - suggestive of mild enteritis.Afebrile. -N/V/abdominal pain treated with Zofran, Reglan, Phenergan, Bentyl with good resolution by discharge -Will discharge with prescriptions for Zofran and Bentyl -Suggest repeat BMP, CBC 5-7 days after discharge 2) Miscarriage - noted 04/2024, f/u US was never completed - TVUS performed without evidence of retained products of conception. 3) Hyponatremia/Hypokalemia/Hypomagnesemia -Resolved with repletion. -K level low on day of discharge - repleted. will need outpatient f/u 3) Type 1 Diabetes -[place] [facility] [place] and [facility] [place] [facility]. -A1c 6.2 on admission -Resume home regimen at discharge 6) Anxiety/Depression -Continue duloxetine, buspirone Total Time Total Time Spent Total Time Spent (In Minutes): see attending documentation Discharge Plan Discharge Items Patient Disposition: Home - Self-Care Reason For Visit: PERSISTENT NAUSEA & VOMITING Discharge Diagnosis: Intractable nausea/vomiting and abdominal pain due to Enteritis Condition on Discharge: Good Activity: Resume your previous activity Activity Comment: as tolerated Non-emergency contact: Primary Care Provider Call non-emergency contact if: you have any medication questions Follow-up/Referrals: Iraida Mayorga MD [Primary Care Provider] - Diet: Carb Count or DM1 Addtl Attending Provider Instructions: You were admitted to the hospital for nausea and vomiting due to enteritis (an inflammation of your intestine). You were treated with IV fluids to rehydrate you and medications to help with your nausea. You also had some abdominal pain. A thorough work-up was performed that did not show any serious intra-abdominal problems. You were given a medication called Zofran (ondansetron) to help with nausea. You were aso given a medication called Bentyl (dicyclomine) that can help treat intestinal spasms. We will send a prescription for this medication to your pharmacy. You can use this as needed if you are having GI symptoms. A discharge summary will be sent to your primary care physician to ensure continuity of care. Please bring this discharge summary with you to your next office appointment so that your provider can review it at that time. Follow-up appointments: Make a follow-up appointment with your PCP within the next week. It is very important that you follow up with them shortly after discharge from the hospital. Keep all your follow-up appointments as already scheduled. If you cannot make an appointment, notify your provider. Medications: Your medication list has been reviewed and reconciled upon discharge to ensure accuracy and continuity of care. An updated list of all your medications is included with your hospital discharge paperwork. Please review this list closely, and make note of any changes. We sent a new medication called dicyclomine to your pharmacy. Take dicyclomine (10mg) one tablet three times daily as needed for abdominal pain. We sent a new medication called ondansetron to your pharmacy. Take ondansetron (4mg) one tablet under your tongue every 4 hours as needed for nausea and vomiting. If you have any issues filling these prescriptions, please call [phone] and ask to leave a message for Dr. Trent Nielsen. Take your medications as instructed; do not skip a dose of your medicines. Make sure all of your doctors know every medicine you are taking (including fxux-icp-cwrcfpo medicines, vitamins, and supplements). Call your primary care provider before taking any new medicines (including rlop-wvq-lddrydi medicines, vitamins, and supplements), because some of these may interact with your current medications, or may make your symptoms worse. Tell your primary care provider if you cannot afford your medications. CONTACT YOUR PRIMARY CARE PROVIDER if you experience any of the following: Increased abdominal pain Return of nausea and vomiting Difficulty following your treatment plan, or difficulty taking medications CALL 911 OR GO TO THE EMERGENCY DEPARTMENT if you experience any of the following: Sudden, severe abdominal pain or nausea/vomiting Severe chest pain, or chest pain that radiates (moves) to your jaw or arm Sudden, severe shortness of breath or difficulty breathing Thank you for allowing us to participate in your care. Pending Studies at Discharge: No Stand-Alone Forms: My [facility] [employer], Work/School Release, Smoking Cessation Medications and DC Order Prescriptions: New dicyclomine 10 mg capsule 10 mg PO TID PRN (Reason: abdominal pain) Qty: 60 0RF ondansetron 4 mg tablet,disintegrating 4 mg PO Q4H PRN (Reason: nausea and vomiting) Qty: 30 0RF Continued ondansetron 4 mg tablet,disintegrating 4 mg PO TID PRN (Reason: NAUSEA/VOMITING) Qty: 90 3RF loratadine 10 mg tablet 10 mg PO DAILY PRN (Reason: allergy symptoms) Qty: 90 3RF levonorgestrel-ethinyl estrad [Sronyx] 0.1-20 mg-mcg tablet 1 tab PO QAM Qty: 84 3RF insulin aspart U-100 [Novolog FlexPen U-100 Insulin] 100 unit/mL (3 mL) insulin pen See Rx Instructions subcut TIDM MDD 15 units Qty: 15 5RF Rx Instructions: subcutaneously three times daily with meals; 1 UNIT:30 CARBS. NOT USING PUMP AT THIS TIME. To be used as a scale to bring down a high blood sugar duloxetine 60 mg capsule,delayed release(DR/EC) 60 mg PO QAM Qty: 90 3RF glucagon HCl [Glucagon (HCl) Emergency Kit] 1 mg recon soln 1 mg subcut Q20M PRN (Reason: hypoglycemia) Qty: 1 3RF Rx Instructions: until target blood sugar attained etodolac 200 mg capsule 200 mg PO Q12H PRN (Reason: pain) alum-mag hydroxide-simeth 200-200-20 mg/5 mL suspension 10 ml PO DIRECTED PRN (Reason: Gi Upset) Medical Mariclaudeuna 1 dose inhalation UD PRN (Reason: Abdominal Pain) magnesium 250 mg tablet 500 mg PO QAM buspirone 10 mg tablet 10 mg PO BID PRN (Reason: Anxiety) sucralfate [Carafate] 100 mg/mL suspension 10 ml PO QID PRN (Reason: as directed) Patient Comments: uses prn only Rx Instructions: swish in mouth and swallow; use after food/drink: May substitute tablets as a slurry. Discharge Orders: Discharge Order (Routine); Ordered 05/21/24 Ordered By: Trent Nielsen Admission Data Admit Date/Time: 05/19/24 02:11 Attending Provider: Alexa Deleon Admit Provider: Meaghan Rodrigez Primary Care Provider: Iraida Mayorga Other Providers: Burt Ferguson Gretchen E. Supervising Physician Co-Signing Physician Notes Attending Physician Supervision Note: I independently interviewed and examined the patient and verified the davis history and physical, reviewed labs and image studies and agree with findings and care plan noted above. Resident Activity Tracking Resident Involvement: Resident Care Provided Care Provided: Adult Hospital Medicine
[2024-05-21 14:21] VITALS: BP 179/93
== END 2024-05-21 14:42 | disposition home or self-care (01) | DRG 392 ==
LOC: ED 20:36 → 3W 05-19 02:11 → SUATTDRO 05-19 02:11 → 3W 05-19 04:18

== ENCOUNTER 2024-07-20 05:37 | Inpatient (IN) ==
[2024-07-20 06:23] LABS: Appearance Urine Cloudy (Clear); Bacteria Urine Automated 4+ (None Seen); Bilirubin Urine Negative (Negative); Blood Urine 1+ (Negative); Cast Urine Automated 0-2 /lpf (0-2); Color Urine Yellow; Epithelial Cell Urine Auto 0-2 /hpf (0-2); Glucose Urine UA 2+ (Negative); Ketones Urine 3+ (Negative); Leukocyte Esterase Urine 3+ (Negative); Nitrite Urine Positive (Negative); Protein Urine Negative (Negative); RBC Urine Automated 0-2 /hpf (0-2); Specific Gravity Urine 1.014 (1.000-1.030); Urobilinogen Urine Negative (Negative); WBC Urine Automated >50 /hpf (0-5); pH Urine 5.5 (4.5-7.5)
[2024-07-20] MEDS: SODIUM CHLORIDE 0.9% 1,000 ML IV ONE (06:35)
[2024-07-20] MEDS: ONDANSETRON INJ 2 MG/ML 2 ML VIAL IV STA (06:36)
[2024-07-20] MEDS: METOCLOPRAMIDE HCL INJ 5 MG/ML 2 ML VIAL IV STA (06:37)
[2024-07-20] MEDS: FAMOTIDINE 20MG IV PUSH 20 MG/5 ML SYR IV STA (06:37)
[2024-07-20] MEDS: diphenhydrAMINE 50 MG/ML VIAL IV STA (06:38)
[2024-07-20] MEDS: MoRPHine SULFATE 10 MG/ML CARP/VIAL IV STA (06:41)
--- NOTE | 2024-07-20 06:42 | Emergency Department Note ---
Impression & Plan Diffuse abdominal pain, Vomiting, Hypomagnesemia, UTI (urinary tract infection), Gastroparesis, Hyponatremia ED Provider Note NAME: DESTINY ESPINOZA AGE: 24 SEX: F : 2000 ARRIVES VIA: Walk-In INFORMANT: [Patient] ED PROVIDER(S): [Chuy Zamudio MD] CHIEF COMPLAINT: GI assessment HISTORY OF PRESENT ILLNESS: The patient is a 24-year-old female with a history of marijuana abuse, gastroparesis and multiple hospital admissions for persistent nausea and vomiting. She was last admitted in May of this past year. The patient presents with 3 days of symptoms. She has tried multiple outpatient meds for her symptoms but she has not had relief. She presents with diffuse abdominal pain vomiting and diarrhea. She states the diarrhea though has stopped, now she is just vomiting. She vomited some dark material and thinks there may have been some blood mixed in. Patient describes this as the worst episode she has ever had. There has been no fever, no cough or congestion, no respiratory complaints. No urinary complaints. Multiple times she asked for morphine for pain. PMHx/PSHx/Social Hx: See Below PHYSICAL EXAM: GENERAL: Patient is in no acute distress. HEENT: No acute trauma, normocephalic atraumatic, mucous membranes moist, no nasal congestion. NECK: No stridor, no adenopathy, no meningismus, trachea is midline. LUNGS: Clear to auscultation bilaterally, no wheeze, no rhonchi, breath sounds equal. HEART: Without murmurs gallops or rubs, regular rate and rhythm. ABDOMEN: Soft, mildly diffusely tender, no distention. EXTREMITIES: No cyanosis, full range of motion of all the joints without pain or difficulty. NEUROLOGIC: Oriented x 3, no acute motor or sensory deficits, no focal weakness. SKIN: No jaundice, no diaphoresis. DIFFERENTIAL DIAGNOSIS: Gastroparesis flare, gastritis, bowel obstruction, electrolyte imbalance, anemia, GI bleeding, among others. EMERGENCY DEPARTMENT PROCEDURES: MEDICAL DECISION MAKING: There is a mild leukocytosis, this could be consistent with infection or just her vomiting. There was a normal hemoglobin and platelet count. Sodium and magnesium were both somewhat low. No renal failure. Lactic acid level was not elevated making bowel ischemia and sepsis unlikely. No worrisome liver enzyme elevation. No evidence for pancreatitis. testing was negative. Urinalysis does show findings of infection, urine culture is pending. Abdominal series did not show bowel obstruction or pneumonia. On exam, the patient was diffusely tender about the abdomen, she was complaining of abdominal pain, she was not febrile. The patient received IV saline, 1 L. She was given IV Zofran and IV morphine. She received IV Reglan. She was given IV Pepcid and IV Benadryl. She received IV Unasyn for antibiotic coverage. She received IV Tylenol. The patient does feel somewhat improved but is still complaining of abdominal pain and nausea. I have not seen her vomit since she has arrived in the ER. The patient has ongoing issues with marijuana abuse and gastroparesis. She presents today with vomiting and diffuse abdominal pain. She was found to have a UTI and certainly, this may have flared up her underlying gastroparesis. I do think a hospital stay is warranted. I did speak with the patient and case management. The on-call hospitalist was consulted. Prior/Outside records/notes reviewed: Discharge summary note from 05/21/2024 describing her presentation, hospital care and plan at discharge. Imaging/x-ray results per my interpretation: Obstruction series does not show free air, pneumonia or bowel obstruction. Chronic Medical/Social conditions affecting care: Gastroparesis, marijuana abuse. Care/Management discussed with: Case management, the on-call hospitalist. Level of care consideration(s): After review of the information above and other included data: --I believe the patient requires escalation of care to admission DISPOSITION: Admission Past Med/Surg History Problem List (Updated 07/20/24 @ 13:57 by Chuy Zamudio MD) Hyponatremia (Acute) Gastroparesis (Acute) UTI (urinary tract infection) (Acute) Hypomagnesemia (Acute) Vomiting (Acute) Diffuse abdominal pain (Acute) UTI (urinary tract infection) Type 1 diabetes mellitus Functional dyspepsia Acute dehydration (Acute) Hypomagnesemia (Acute) Acute hyponatremia (Acute) Nausea vomiting and diarrhea (Acute) Abdominal pain (Acute) Hypomagnesemia with normocalciuria Hyponatremia with decreased serum osmolality Vomiting Miscarriage Early stage of Diabetic ulcer of left foot associated with diabetes mellitus due to underlying condition, limited to breakdown of skin (Acute) Inguinal adenopathy (Acute) Leukocytosis (Acute) Lymphangitis (Acute) Cellulitis of foot, left (Acute) Abscess of left foot (Acute) Anxiety and depression Diabetic peripheral neuropathy associated with type 1 diabetes mellitus Personal history of diabetic foot ulcer Gastroparesis Chronic diarrhea IBS (irritable bowel syndrome) (Acute) Hypoglycemia unawareness associated with type 1 diabetes mellitus Insomnia Fecal incontinence Anorectal motility disorder Vitamin D deficiency Cyclical vomiting Diabetic autonomic neuropathy associated with type 1 diabetes mellitus Proliferative diabetic retinopathy associated with type 1 diabetes mellitus Diabetes type 1, controlled Medical History Metatarsal fracture Seizure 11/2021>MEDICATION INDUCED Surgical History H/O pyloroplasty History of tonsillectomy and adenoidectomy S/P laparoscopy History of colonoscopy History of esophagogastroduodenoscopy (EGD) [place] teeth removed History of ear surgery History of myringotomy H/O eye surgery Family History Mother Family history of diabetes mellitus Grandmother (Maternal) Family history of diabetes mellitus Other Breast cancer Myocardial infarction No family history of adverse response to anesthesia Ovarian cancer Prostate cancer Denies family history of Colorectal cancer Social History Smoking Status: Current every day smoker Tobacco Type: E-cigarettes / Vaping Cigarettes Per Day: VAPES DAILY>ADVISED; Second Hand Exposure: No; Do You Dip or Chew Tobacco: No; Tobacco Cessation Education Requested by Patient: No Hx Alcohol Use: No Hx Substance Use: Yes Prescribed Medications: Marijuana Last Used Substance: Days (ago) Last Used Substance Other:: 07/19/24 Substance Use Type Other:: prescibed to patient Preferred Language: Japanese Communication Ability: Effective Visual Impairment: No Limitations Surgical Forceps Fabricator Required: No Beliefs That Will Affect Care: None marital status: Single Current Living Situation: Significant Other Current Living Situation Comment: fiance Other Information That Helps Us Care for You: No Feels Safe at Home: Yes Safety Concerns: Feels Safe At This Time Dental Care, Regularly: Yes Physical Activity Frequency: 5-6 Times per Week Assistive Devices: None and Glasses Allergies Allergies Allergy/AdvReac Type Severity Reaction Status Date / Time insect venom Allergy Severe Hives Verified 06/03/24 15:38 No Known Drug Allergies Allergy Unknown Verified 06/03/24 15:38 Home Meds Home Medications Medication Instructions Recorded Confirmed Medical Marijauna 1 dose inhalation UD PRN Abdominal 02/20/23 07/20/24 Pain sucralfate 100 mg/mL oral 10 ml PO QID PRN as directed 03/15/23 07/20/24 suspension (Carafate) magnesium 250 mg tablet 500 mg PO QAM 04/28/24 07/20/24 Previous Rx's Medication Instructions Recorded loratadine 10 mg tablet 10 mg PO DAILY PRN allergy 03/04/23 symptoms #90 tabs levonorgestrel-ethinyl estradiol 1 tab PO QAM #84 tabs 03/19/23 0.1 mg-20 mcg tablet (Sronyx) glucagon HCl 1 mg solution for 1 mg subcut Q20M PRN hypoglycemia 05/08/23 injection (Glucagon (HCl) #1 ea Emergency Kit) insulin aspart U-100 100 unit/mL See Rx Instructions subcut TIDM 01/01/24 (3 mL) subcutaneous pen (Novolog #15 mL FlexPen U-100 Insulin aspart) duloxetine 60 mg capsule,delayed 60 mg PO QAM #90 caps 04/25/24 release dicyclomine 10 mg capsule 10 mg PO TID PRN abdominal pain 05/21/24 #60 caps ondansetron 4 mg disintegrating 4 mg PO Q4H PRN nausea and 05/21/24 tablet vomiting #30 tabs blood-glucose sensor (Dexcom G7 #3 ea 06/03/24 Sensor device) buspirone 10 mg tablet 10 mg PO BID #180 tabs 06/03/24 Results & Data (ED) Vital Signs Vital Signs - 24 hr 07/20/24 05:46 07/20/24 06:21 07/20/24 06:25 Temperature 36.6 C Temperature Source Temporal Artery Scan Pulse Rate 104 H 102 H Pulse Rate [Apical] 92 H Respiratory Rate 20 20 Respiratory Effort / Characteristics Non-Labored Spontaneous Respiratory Depth Normal Respiratory Pattern Regular Blood Pressure 139/90 Blood Pressure [Right Arm] Blood Pressure Mean 106 Blood Pressure Mean [Right Arm] Blood Pressure Position Sitting Pulse Oximetry 99 98 Oxygen Delivery Method Room Air Room Air Sepsis Recent Fever Within 48 Hours No Sepsis New/Unexplained Change in Mental Status N/A Sepsis Action Taken by Nursing No Action Required 07/20/24 08:01 Temperature Temperature Source Pulse Rate Pulse Rate [Apical] 99 H Respiratory Rate 20 Respiratory Effort / Characteristics Non-Labored Spontaneous Respiratory Depth Normal Respiratory Pattern Blood Pressure Blood Pressure [Right Arm] 164/96 H Blood Pressure Mean Blood Pressure Mean [Right Arm] 118 Blood Pressure Position Pulse Oximetry 99 Oxygen Delivery Method Room Air Sepsis Recent Fever Within 48 Hours Sepsis New/Unexplained Change in Mental Status Sepsis Action Taken by Skilled Nursing Medications Current Medication List: was personally reviewed by me Laboratory Data Attestation: I reviewed the patient's lab results. 07/20/24 06:15 07/20/24 06:15 Lab Results 07/20/24 07/20/24 Range/Units 05:57 06:15 WBC 13.50 H (4.8-10.8) K/ul RBC 4.92 (4.20-5.40) M/uL Hgb 14.2 (12.0-16.0) g/dl Hct 40.5 (37.0-47.0) % MCV 82.3 (80.0-100.0) fL MCH 28.9 (25.0-34.0) pg MCHC 35.1 (32.0-36.0) g/dL RDW Std Deviation 36.8 (36.4-46.3) fL RDW Coeff of Mil 12.2 (11.5-14.5) % Plt Count 256 (130-400) K/uL MPV 12.3 (9.4-12.4) fL Immature Gran % (Auto) 0.5 % Neut % (Auto) 89.3 % Lymph % (Auto) 7.2 % Howell % (Auto) 2.8 % Eos % (Auto) 0.1 % Baso % (Auto) 0.1 % Neut # (Auto) 12.06 H (1.40-6.50) K/uL Lymph # (Auto) 0.97 L (1.20-3.40) K/uL Howell # (Auto) 0.38 (0.11-0.59) K/uL Eos # (Auto) 0.01 (0.00-0.50) K/uL Baso # (Auto) 0.01 (0.00-0.20) K/uL Immature Gran # (Auto) 0.07 (0.01-0.20) K/uL Sodium 128 L (136-145) mmol/L Potassium 3.4 L (3.5-5.1) mmol/L Chloride 90 L (98-107) mmol/L Carbon Dioxide 25 (21-32) mmol/L Anion Gap 13 H (3-11) BUN 7 (6-23) mg/dl Creatinine 0.52 L (0.6-1.2) mg/dl Est Cr Clr Drug Dosing 181.9 ml/min eGFR 132.15 BUN/Creatinine Ratio 13.5 (10-20) Glucose 261 H (70-99(Fasting)) mg/dl Osmolality 277 L (280-300) mOsm/kg Calcium 9.3 (8.6-10.3) mg/dl Magnesium 1.4 L (1.7-2.4) mg/dl Total Bilirubin 0.8 (0.2-1.0) mg/dl AST 18 (13-39) U/L ALT 16 (7-52) U/L Alkaline Phosphatase 71 (34-104) U/L Total Protein 8.0 (6.0-8.3) gm/dl Albumin 4.7 (3.4-5.0) gm/dl Globulin 3.3 (2.5-4.0) gm/dl Albumin/Globulin Ratio 1.4 (0.9-2) Lipase 15 (11-82) U/L HCG, Qual Negative (Negative) Urine Color Yellow Urine Appearance Cloudy A (Clear) Urine pH 5.5 (4.5-7.5) Ur Specific Morrison 1.014 (1.000-1.030) Urine Protein Negative (Negative) Urine Glucose (UA) 2+ H (Negative) Urine Ketones 3+ H (Negative) Urine Blood 1+ H (Negative) Urine Nitrite Positive A (Negative) Urine Bilirubin Negative (Negative) Urine Urobilinogen Negative (Negative) Ur Leukocyte Esterase 3+ H (Negative) Urine WBC (Auto) >50 H (0-5) /hpf Urine RBC (Auto) 0-2 (0-2) /hpf U Hyaline Cast (Auto) 0-2 (0-2) /lpf U Epithel Cells (Auto) 0-2 (0-2) /hpf Urine Bacteria (Auto) 4+ H (None Seen) Administered Medications Lactated Ringer's (Lr) 1,000 mls @ 80 mls/hr IV .[id number] MARIELLA Stop: 07/20/24 22:29 Last Admin: 07/20/24 10:33 Dose: 80 mls/hr Documented By: PRINCESS Magnesium Sulfate/Dextrose (Magnesium Sulfate / D5w) 1 gm in 100 mls @ 50 mls/hr IV Q2H MARIELLA Stop: 07/20/24 14:59 Last Admin: 07/20/24 13:45 Dose: 50 mls/hr Documented By: Infusion: 07/20/24 13:44 Dose: Infused Documented By: Admin: 07/20/24 11:43 Dose: 50 mls/hr Documented By: CODY Pantoprazole Sodium 40 mg/ (Syringe) 10 mls @ 5 mls/min IV DAILY@1100 [facility] Stop: 08/19/24 11:29 Last Admin: 07/20/24 12:25 Dose: 5 mls/min Documented By: CODY Insulin Aspart (Insulin Aspart Per Unit Charge) 0 units SC ACHS MARIELLA Stop: 08/19/24 11:29 Last Admin: 07/20/24 13:39 Dose: Not Given Documented By: CODY Insulin Glargine (Lantus Per Unit Charge) 5 units SQ DAILY MARIELLA Stop: 08/19/24 10:59 Last Admin: 07/20/24 11:50 Dose: 5 units Documented By: CODY Co-signed By: RUBI Ketorolac Tromethamine (Ketorolac Tromethamine 15 Mg/Ml Vial) 10 mg IV Q6H PRN PRN Reason: Pain Stop: 07/25/24 10:58 Last Admin: 07/20/24 11:37 Dose: 10 mg Documented By: CODY Discontinued Medications Diphenhydramine HCl (Diphenhydramine 50 Mg/Ml Vial) 25 mg IV NOW STA Stop: 07/20/24 06:27 Last Admin: 07/20/24 06:38 Dose: 25 mg Documented By: KANE Sodium Chloride (Nss) 1,000 mls @ 999 mls/hr IV .Q1H1M ONE Stop: 07/20/24 07:26 Last Infusion: 07/20/24 08:02 Dose: Infused Documented By: Admin: 07/20/24 06:35 Dose: 999 mls/hr Documented By: KANE Famotidine (Pepcid 20mg Iv Push) 20 mg in 5 mls @ 2.5 mls/min IV NOW STA Stop: 07/20/24 06:27 Last Admin: 07/20/24 06:37 Dose: 2.5 mls/min Documented By: KANE Acetaminophen (Ofirmev) 1,000 mg in 100 mls @ 400 mls/hr IV NOW STA Stop: 07/20/24 06:52 Last Infusion: 07/20/24 07:15 Dose: Infused Documented By: Admin: 07/20/24 06:48 Dose: 400 mls/hr Documented By: KANE Ceftriaxone Sodium (Rocephin) 2,000 mg in 50 mls @ 100 mls/hr IV NOW STA Stop: 07/20/24 07:25 Last Admin: 07/20/24 07:15 Dose: Not Given Documented By: PRINCESS Ampicillin Sodium/Sulbactam Sodium (Unasyn) 3,000 mg in 100 mls @ 200 mls/hr IV NOW ONE; Protocol Stop: 07/20/24 07:44 Last Infusion: 07/20/24 08:02 Dose: Infused Documented By: Admin: 07/20/24 07:15 Dose: 200 mls/hr Documented By: PRINCESS Potassium Chloride (K Vishnu / Wtr) 10 meq in 100 mls @ 100 mls/hr IV ONE ONE Stop: 07/20/24 10:52 Last Infusion: 07/20/24 11:35 Dose: Infused Documented By: Admin: 07/20/24 10:33 Dose: 100 mls/hr Documented By: PRINCESS Metoclopramide HCl (Metoclopramide Hcl Inj 5 Mg/Ml 2 Ml Vial) 10 mg IV NOW STA Stop: 07/20/24 06:27 Last Admin: 07/20/24 06:37 Dose: 10 mg Documented By: KANE Morphine Sulfate (Morphine Sulfate 10 Mg/Ml Carp/Vial) 6 mg IV NOW STA Stop: 07/20/24 06:38 Last Admin: 07/20/24 06:41 Dose: 6 mg Documented By: KANE Morphine Sulfate (Morphine Sulfate 4 Mg/Ml 1 Ml Carp\Vial) 4 mg IV Q30M PRN PRN Reason: Pain Stop: 08/03/24 06:36 Last Admin: 07/20/24 10:33 Dose: 4 mg Documented By: PRINCESS Ondansetron HCl (Ondansetron Inj 2 Mg/Ml 2 Ml Vial) 4 mg IV NOW STA Stop: 07/20/24 06:27 Last Admin: 07/20/24 06:36 Dose: 4 mg Documented By: KANE Imaging Data Radiologist's Impression: Chest/Abdomen X-ray 07/20/24 06:26 XR abdomen 2V w PA chest HISTORY: 24 years-old Female nv acute chest pain with nausea and vomiting COMPARISON: 05/18/2024 TECHNIQUE: PA view of the chest with erect and supine views of the abdomen FINDINGS: Bilateral nipple jewelry. Heart size is normal. No pneumothorax or pleural effusion. The lungs appear clear. No acute fracture. Nonobstructed bowel gas pattern. No free air or urolith identified. IMPRESSION: 1. No acute process of the chest. 2. Nonobstructive bowel gas pattern. ACT 112: Negative or not required by law. The above report was generated using voice recognition software. It may contain grammatical, syntax or spelling errors. Electronically signed by: Ajay Prasad M.D. 07/20/2024 7:30 AM Discharge Plan Visit Data Chief Complaint: GI Assessment Stated Complaint: GASTROPARESIS-VOMITING BLOOD,DIARRHEA ED Provider: Chuy Zamudio Discharge Problem: Diffuse abdominal pain, Vomiting, Hypomagnesemia, UTI (urinary tract infection), Gastroparesis, Hyponatremia Patient Disposition: Admitted As Inpatient Condition: Fair Discharge Instructions Interventions: ED Discharge Assessment Last Done: 07/20/24 10:48 Discharge Problem: Vomiting Qualifiers: Vomiting type: unspecified Nausea presence: with nausea Qualified Code(s): R 11.2 - Nausea with vomiting, unspecified UTI (urinary tract infection) Qualifiers: Urinary tract infection type: acute cystitis Hematuria presence: without hematuria Qualified Code(s): N30.00 - Acute cystitis without hematuria
[2024-07-20] MEDS: ACETAMINOPHEN 1,000 MG/100 ML VIAL IV STA (06:48)
[2024-07-20 06:59] LABS: Basophils # (auto) 0.01 K/uL (0.00-0.20); Basophils % (auto) 0.1 %; Eosinophils # (auto) 0.01 K/uL (0.00-0.50); Eosinophils % (auto) 0.1 %; Hematocrit (blood only) 40.5 % (37.0-47.0); Hemoglobin 14.2 g/dl (12.0-16.0); Immature Granulocytes # (auto) 0.07 K/uL (0.01-0.20); Immature Granulocytes % (auto) 0.5 %; Lymphocytes # (auto) 0.97 K/uL (1.20-3.40); Lymphocytes % (auto) 7.2 %; Mean Corpuscular Hemoglobin 28.9 pg (25.0-34.0); Mean Corpuscular Hgb Conc 35.1 g/dL (32.0-36.0); Mean Corpuscular Volume 82.3 fL (80.0-100.0); Mean Platelet Volume 12.3 fL (9.4-12.4); Monocytes # (auto) 0.38 K/uL (0.11-0.59); Monocytes % (auto) 2.8 %; Neutrophils # (auto) 12.06 K/uL (1.40-6.50); Neutrophils % (auto) 89.3 %; Platelet Count 256 K/uL (130-400); RDW Coefficient of Variation 12.2 % (11.5-14.5); RDW Standard Deviation 36.8 fL (36.4-46.3); Red Blood Count 4.92 M/uL (4.20-5.40)
[2024-07-20] MEDS ORDERED: AMPICILLIN/SULBACTAM SOD 3,000 MG in SODIUM CHLOR 0.9% MINI-B 100 ML IV STA (07:01)
[2024-07-20] MEDS: AMPICILLIN/SULBACTAM SOD 3,000 MG/100 ML BAG IV ONE (07:15)
[2024-07-20] MEDS: cefTRIAXone SODIUM 2,000 MG/50 ML BAG IV STA (07:15)
[2024-07-20 07:20] LABS: Albumin Globulin Ratio 1.4 (0.9-2); Albumin Level 4.7 gm/dl (3.4-5.0); BUN Creatinine Ratio 13.5 (10-20); Bilirubin,Total 0.8 mg/dl (0.2-1.0); Calcium 9.3 mg/dl (8.6-10.3); Creatinine Clr Calc Pharmacy 181.9 ml/min; Globulin 3.3 gm/dl (2.5-4.0); Potassium 3.4 mmol/L (3.5-5.1)
[2024-07-20 07:22] LABS: Pregnancy Test, Serum Negative (Negative)
--- NOTE | 2024-07-20 07:32 | XRay Report ---
XR abdomen 2V w PA chest HISTORY: 24 years-old Female nv acute chest pain with nausea and vomiting COMPARISON: 05/18/2024 TECHNIQUE: PA view of the chest with erect and supine views of the abdomen FINDINGS: Bilateral nipple jewelry. Heart size is normal. No pneumothorax or pleural effusion. The lungs appear clear. No acute fracture. Nonobstructed bowel gas pattern. No free air or urolith identified. IMPRESSION: 1. No acute process of the chest. 2. Nonobstructive bowel gas pattern. ACT 112: Negative or not required by law. The above report was generated using voice recognition software. It may contain grammatical, syntax o r spelling errors. Electronically signed by: Ajay Prasad M.D. 07/20/2024 7:30 AM
--- NOTE | 2024-07-20 09:07 | History & Physical Report ---
Date of Service July 20, 2024 Assessment & Plan (1) Cyclical vomiting: Plan: Worsening N/V/D and generalized abdominal pain that began on Tuesday 07/17 Hx of gastroparesis; daily marijuana user but no prior history of cannabinoid hyperemesis; last smoked on Tuesday 07/17 Abdominal X-ray with non-obstructive bowel gas pattern If worsening of abdominal pain, will consider A/P CT Advance diet as tolerated IV antiemetics with Zofran IV pain control with acetaminophen, toradol, and dicyclomine IV Protonix 40 mg daily IV famotidine 20 mg BID A.m. CBC, BMP, mag (2) Acute hyponatremia: Plan: Mild; NA 128 on arrival Urine osm, Serum Osm, and urine sodium ordered, pending NSS 1000mL IV given in the ED Additional fluids pending labs Trend BMP (3) UTI (urinary tract infection): Plan: UA cloudy and positive for bacteria on arrival Mild leukocytosis at 13.50 with a neutrophil predominance; afebrile Clinically, patient endorses lower back pain but denies burning with urination; she reports history of UTIs that are largely asymptomatic but often tied to cyclic vomiting syndrome Urine culture on 05/19/2024 grew coag negative staph with a susceptibility to oxacillin Unasyn 3000 mg IV q6h Gentle IVF resuscitation (4) Type 1 diabetes mellitus: Plan: Last A1c at 6.2% on 05/19/2024 Glucose 261 on admission Lantus 5u daily with SSI Advance to T1DM diet as tolerated BSG ACHS Adjust regimen as needed Pharmacy glycemic management consult for T1DM in the setting of U-100 use (5) Gastroparesis: Plan: IV Reglan 5 mg q6h Sucralfate p.o. as needed (6) Nausea vomiting and diarrhea: (7) Abdominal pain: Plan Disposition: Admit to [facility] Full code Advance to T1DM diet as tolerated VTE PPx: Lovenox 40 mg SQ q24h History of Present Illness Primary Care Provider: Iraida Mayorga MD Sonia is a 24-year-old female with PMH of T1DM, diabetic autonomic neuropathy, gastroparesis, cyclic vomiting syndrome, IBS, anxiety, depression, miscarriage, and functional dyspepsia. She presented for worsening N/V/D and generalized abdominal pain that started on Mars 10/6. Patient reports that this is similar to prior episodes of cyclic vomiting syndrome, which she attributes to her gastroparesis. Her symptoms came on gradually over the course of Thursday and have progressively gotten worse since. She is currently tolerating fluids but not solids. Has not eaten since Thursday. No sick contacts. Patient took her regular morning medication today, but reports that she vomited shortly after. No recent change in medications. She has been taking Zofran at home for her nausea and vomiting, which she reports helps sometimes. Additionally, she endorses generalized abdominal pain that she rates 9/10 at present, 10/10 at worst. The pain is mostly constant, but occasionally comes in waves. She characterizes it as someone "wringing" her stomach out. She has been taking Tylenol at home for the pain. Additionally she has had diarrhea that began shortly after the vomiting started. She has a history of UTIs that can occur with her cyclic vomiting syndrome; she reports she is normally asymptomatic and does not endorse burning with urination, but does note lower back pain. Patient does vape and smoke marijuana; last smoked marijuana on Thursday. She denies tobacco use or recent alcohol use. Patient manages her T1DM with a sliding scale insulin (U100); no Lantus, 1:30 ratio, she reports she does 3 to 4 units per meal. Patient is mildly hypertensive in 164/96 and tachycardic around 100 bpm at time of admission; vitals otherwise stable. ED course: Zofran 4 mg IV Reglan 10 mg IV Benadryl 25 mg IV Famotidine 20 mg IV NSS 1000 mL IV Morphine sulfate 6 mg IV Acetaminophen 1000 mg IV Unasyn 3000 mg IV Rocephin 2000 mg IV ROS: Patient endorses generalized weakness, lightheadedness with movements, generalized abdominal pain, N/V/D, hematemesis (started this morning), dry heaves, and lower back pain. Patient denies fever, chills, night-sweats, MCCOY, chest pain, SOB, cough, pleuritic CP, blood in urine/stool, burning with urination, or suprapubic tenderness. Allergies Allergy/AdvReac Type Severity Reaction Status Date / Time insect venom Allergy Severe Hives Verified 06/03/24 15:38 No Known Drug Allergies Allergy Unknown Verified 06/03/24 15:38 Home Medications Medication Instructions Recorded Confirmed Type Medical Marijauna 1 dose inhalation UD PRN Abdominal 02/20/23 07/20/24 History Pain loratadine 10 mg tablet 10 mg PO DAILY PRN allergy 03/04/23 07/20/24 Rx symptoms #90 tabs sucralfate 100 mg/mL oral 10 ml PO QID PRN as directed 03/15/23 07/20/24 History suspension (Carafate) levonorgestrel-ethinyl estradiol 1 tab PO QAM #84 tabs 03/19/23 07/20/24 Rx 0.1 mg-20 mcg tablet (Sronyx) glucagon HCl 1 mg solution for 1 mg subcut Q20M PRN hypoglycemia 05/08/23 07/20/24 Rx injection (Glucagon (HCl) #1 ea Emergency Kit) insulin aspart U-100 100 unit/mL See Rx Instructions subcut TIDM 01/01/24 07/20/24 Rx (3 mL) subcutaneous pen (Novolog #15 mL FlexPen U-100 Insulin aspart) duloxetine 60 mg capsule,delayed 60 mg PO QAM #90 caps 04/25/24 07/20/24 Rx release magnesium 250 mg tablet 500 mg PO QAM 04/28/24 07/20/24 History dicyclomine 10 mg capsule 10 mg PO TID PRN abdominal pain 05/21/24 07/20/24 Rx #60 caps ondansetron 4 mg disintegrating 4 mg PO Q4H PRN nausea and 05/21/24 07/20/24 Rx tablet vomiting #30 tabs blood-glucose sensor (Dexcom G7 #3 ea 06/03/24 06/03/24 Rx Sensor device) buspirone 10 mg tablet 10 mg PO BID #180 tabs 06/03/24 07/20/24 Rx Past Med/Surg History Problem List (Updated 07/20/24 @ 13:57 by Chuy Zamudio MD) Hyponatremia (Acute) Gastroparesis (Acute) UTI (urinary tract infection) (Acute) Hypomagnesemia (Acute) Vomiting (Acute) Diffuse abdominal pain (Acute) UTI (urinary tract infection) Type 1 diabetes mellitus Functional dyspepsia Acute dehydration (Acute) Hypomagnesemia (Acute) Acute hyponatremia (Acute) Nausea vomiting and diarrhea (Acute) Abdominal pain (Acute) Hypomagnesemia with normocalciuria Hyponatremia with decreased serum osmolality Vomiting Miscarriage Early stage of Diabetic ulcer of left foot associated with diabetes mellitus due to underlying condition, limited to breakdown of skin (Acute) Inguinal adenopathy (Acute) Leukocytosis (Acute) Lymphangitis (Acute) Cellulitis of foot, left (Acute) Abscess of left foot (Acute) Anxiety and depression Diabetic peripheral neuropathy associated with type 1 diabetes mellitus Personal history of diabetic foot ulcer Gastroparesis Chronic diarrhea IBS (irritable bowel syndrome) (Acute) Hypoglycemia unawareness associated with type 1 diabetes mellitus Insomnia Fecal incontinence Anorectal motility disorder Vitamin D deficiency Cyclical vomiting Diabetic autonomic neuropathy associated with type 1 diabetes mellitus Proliferative diabetic retinopathy associated with type 1 diabetes mellitus Diabetes type 1, controlled Medical History Metatarsal fracture Seizure 11/2021>MEDICATION INDUCED Surgical History H/O pyloroplasty History of tonsillectomy and adenoidectomy S/P laparoscopy History of colonoscopy History of esophagogastroduodenoscopy (EGD) [place] teeth removed History of ear surgery History of myringotomy H/O eye surgery Family History Mother Family history of diabetes mellitus Grandmother (Maternal) Family history of diabetes mellitus Other Breast cancer Myocardial infarction No family history of adverse response to anesthesia Ovarian cancer Prostate cancer Denies family history of Colorectal cancer Social History Smoking Status: Current every day smoker Tobacco Type: E-cigarettes / Vaping Cigarettes Per Day: VAPES DAILY>ADVISED; Second Hand Exposure: No; Do You Dip or Chew Tobacco: No; Tobacco Cessation Education Requested by Patient: No Hx Alcohol Use: No Hx Substance Use: Yes Prescribed Medications: Marijuana Last Used Substance: Days (ago) Last Used Substance Other:: 07/19/24 Substance Use Type Other:: prescibed to patient Preferred Language: Occitan Communication Ability: Effective Visual Impairment: No Limitations 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 Beliefs That Will Affect Care: None marital status: Single Current Living Situation: Significant Other Current Living Situation Comment: fiance Other Information That Helps Us Care for You: No Feels Safe at Home: Yes Safety Concerns: Feels Safe At This Time Dental Care, Regularly: Yes Physical Activity Frequency: 5-6 Times per Week Assistive Devices: None and Glasses Review of Systems Review of Systems: See HPI above Physical Exam Physical Exam: General: no acute distress; lethargic; grandmother at bedside; non-toxic appearing; well-nourished; cooperative; SpO2 90% on RA HEENT: normocephalic, atraumatic; no scleral icterus; PERRLA; vision and hearing grossly intact Neck: supple; no lymphadenopathy; trachea midline Skin: warm, dry without signs of tenting; no cyanosis; no rashes, bruising, lesions, or erythema noted CV: chest wall NTP; RRR; S1/S2 normal; no murmurs/rubs/gallops; pulses intact and symmetric at radial, DP, and PT Lungs: no acute respiratory distress; symmetrical chest wall expansion; clear breath sounds across all lung brunson w/o adventitious sounds; no wheezing ABD: Soft, TTP in all 4 quadrants; BS present; no rebound/guarding; no distention; no rashes or bruising on the abdomen or flanks bilaterally Back: Mild CVA tenderness bilaterally MSK: no tics or fasciculations; no edema noted in the LEs b/l, nonerythematous Neuro: A&Ox3; flat mood and affect; fluent speech; no focal deficits; sensation intact and symmetric in the LEs bilaterally Results & Data Results & Data Vital Signs (Past 12 Hours) Vital Signs Temp Pulse Pulse Resp BP BP Pulse Ox 07/20/24 08:01 99 H 20 164/96 H 99 07/20/24 06:25 102 H 07/20/24 06:21 92 H 20 98 07/20/24 05:46 36.6 C 104 H 20 139/90 99 O2 Del Method 07/20/24 08:01 Room Air 07/20/24 06:25 07/20/24 06:21 Room Air 07/20/24 05:46 Room Air Laboratory Results Abnormal lab results 07/20/24 07/20/24 Range/Units 05:57 06:15 WBC 13.50 H (4.8-10.8) K/ul Neut # (Auto) 12.06 H (1.40-6.50) K/uL Lymph # (Auto) 0.97 L (1.20-3.40) K/uL Sodium 128 L (136-145) mmol/L Potassium 3.4 L (3.5-5.1) mmol/L Chloride 90 L (98-107) mmol/L Anion Gap 13 H (3-11) Creatinine 0.52 L (0.6-1.2) mg/dl Glucose 261 H (70-99(Fasting)) mg/dl Urine Appearance Cloudy A (Clear) Urine Glucose (UA) 2+ H (Negative) Urine Ketones 3+ H (Negative) Urine Blood 1+ H (Negative) Urine Nitrite Positive A (Negative) Ur Leukocyte Esterase 3+ H (Negative) Urine WBC (Auto) >50 H (0-5) /hpf Urine Bacteria (Auto) 4+ H (None Seen) Diagnostic Findings Chest/Abdomen X-ray 07/20/24 06:26 XR abdomen 2V w PA chest HISTORY: 24 years-old Female nv acute chest pain with nausea and vomiting COMPARISON: 05/18/2024 TECHNIQUE: PA view of the chest with erect and supine views of the abdomen FINDINGS: Bilateral nipple jewelry. Heart size is normal. No pneumothorax or pleural effu cristian. The lungs appear clear. No acute fracture. Nonobstructed bowel gas pattern. No free air or urolith identified. IMPRESSION: 1. No acute process of the chest. 2. Nonobstructive bowel gas pattern. ACT 112: Negative or not required by law. The above report was generated using voice recognition software. It may contain grammatical, syntax or spelling errors. Electronically signed by: Ajay Prasad M.D. 07/20/2024 7:30 AM ECG Additional Comments: ECG revealed NSR 88 bpm; QTc 462 Code Status & VTE Plan Code Status Full code VTE Prophylaxis Plan VTE Prophylaxis will be ordered: Yes Supervising Physician Co-Signing Physician Notes Sonia Diaz is a 24-year-old female with a past medical history of type 2 diabetes with gastroparesis, cyclic vomiting, and SIADH who presents today with worsening abdominal pain x 48 hours, recurrent nausea/vomiting, and acute hyponatremia with suspected UTI. Sonia seen at the bedside with her mother present. She reports nausea/vomiting and abdominal discomfort of around 2 days which are similar to her prior episodes. No fevers or chills. Does have some back and flank pain. Does have some diffuse abdominal pain worsened with vomiting. Nonbloody emesis. No melena/hematochezia. She feels her current presentation is almost identical to past exacerbations. Abdomen is diffusely mildly tender to palpation but without rigidity/rebound/guarding. She reports her pain and nausea at rest resolved following morphine in the ER. Lungs are clear, heart rate is regular on admission. Nausea/vomiting Multifactorial. Patient with history of cyclic vomiting, gastroparesis, type 1 diabetes. Also with marijuana use although in the past reports this has not affected her nausea and denies history of hyperemesis syndrome. Also with suspicion for UTI with infected appearing UA and some flank pain Reglan given while in the ER. EKG recheck without QT prolongation Continued on Zofran, given underlying cyclic vomiting and gastroparesis can alternate this with Reglan. Patient is aware of EPS risks which were discussed at the bedside. Chest/abdomen x-ray: No acute process of the chest/abdomen. Nonobstructive bowel gas. BCCs the bedside and reports that her abdomen pain is up to a 9/10 out of 10 intermittently, but appears comfortable at rest and is not tachycardic or hypertensive. Discussed that given severe pain CT would normally be indicated however she has had numerous and repeat CT scans for similar to very young age. Her/benefits of reimaging discussed, patient feels her current presentation is the same as her prior episodes of cyclic vomiting nausea/vomiting and on shared decision making would prefer to defer CT at this time. If worsening pain, signs of sepsis, or other concerning symptoms develop --> stat CT with IV contrast. On exam she endorses diffuse tenderness to palpation but has no guarding, rigidity, or rebound tenderness. Lactate and VBG added. Leukocytosis of 13.5, may be from demargination with vomiting versus UTI UTI: UA infected appearing. Mild leukocytosis, and patient with some flank discomfort bilaterally to percussion similar to prior UTIs; will treat for potential underlying UTI. Last culture PEARL CUTTER, Unasyn continued on admission. Cyclic vomiting: Patient with history of both gastroparesis, regular marijuana use without known cannabinoid hyperemesis and 2 days of worsening nausea/vomiting. IV antiemetics continued. Pepcid twice daily continued. Patient has needed analgesics in the past due to pain with her current nausea/vomiting. Recommend minimizing narcotics unless absolutely necessary; agree with Tylenol, Toradol 10 mg IV every 6 hours and morphine for breakthrough. Pepcid twice daily for gastric protection renal function is normal. Hyponatremia: Recurrent, frequently associated with her nausea/vomiting episodes. Has resolved in the past with hydration. Patient does have history of type 1 diabetes that is at risk of progressing into diabetic ketoacidosis; given this is given 1 L of LR for hydration and then will be continued on oral fluids with salt tabs if needed. Type I/1.5 DM: She does not appear in severe DKA, BSG is less than 300 on admission although ketones are present in the urine. On acting insulin given, dose reduced due to poor episodes of hypoglycemia with pharmacy consult on board. Insulin given at time of admission with a BSG of 261. Goal [id number]. Continue basal-bolus with dose reduced basal. PG Care Time/CCT Total # of Minutes Spent Total Time Spent with Patient: Total time spent is greater than 50% in coordination of care (as documented) at patient's floor/unit and/or counseling patient: C[place] [address] INT INP/OBS CARE 3/75MIN Patient Type Established Medical Decision Making High Complexity Diagnoses Cyclical vomiting R11.15 Acute hyponatremia E87.1 UTI (urinary tract infection) N39.0 Type 1 diabetes mellitus E10.9 Gastroparesis K31.84 Nausea vomiting and diarrhea R11.2; R19.7 Abdominal pain R10.84 Abdominal location: generalized (7) Abdominal pain Abdominal location: generalized Qualified Code(s): R10.84 - Generalized abdominal pain
[2024-07-20] MEDS: MoRPHine SULFATE 4 MG/ML 1 ML CARP\\VIAL IV PRN ×2 (10:33→14:26)
[2024-07-20] MEDS: POTASSIUM CHLORIDE / WTR 10 MEQ/100 ML PLCT IV ONE (10:33)
[2024-07-20] MEDS: LACTATED RINGER'S 1,000 ML IV SCH (10:33)
[2024-07-20 10:39] LABS: Magnesium 1.4 mg/dl (1.7-2.4)
[2024-07-20] MEDS ORDERED: GLUCOSE 40% GEL 15 GM TUBE PO PRN ×2 (10:59→11:16)
[2024-07-20] MEDS ORDERED: GLUCOSE 10 TAB/TUBE PO PRN ×2 (10:59→11:16)
[2024-07-20] MEDS ORDERED: CARBOHYDRATES FOR HYPOGLYCEMIA PO PRN ×2 (10:59→11:16)
[2024-07-20] MEDS ORDERED: GLUCAGON FOR INJ 1 MG VIAL SQ PRN ×2 (10:59→11:16)
[2024-07-20] MEDS ORDERED: PHARMACY GLYCEMIC MGMT CONSULT PRN (10:59)
[2024-07-20] MEDS ORDERED: DEXTROSE 50% 50 ML SYRINGE IV PRN ×2 (10:59→11:16)
[2024-07-20] MEDS ORDERED: ACETAMINOPHEN 500 MG TAB PO PRN (10:59)
[2024-07-20] MEDS ORDERED: MoRPHine SULFATE 2 MG/ML CARP IV PRN (11:02)
[2024-07-20] MEDS ORDERED: LORATADINE 10 MG TAB PO PRN (11:16)
[2024-07-20] MEDS ORDERED: MAGNESIUM HYDROXIDE SUSP 30 ML UDC PO PRN (11:16)
[2024-07-20] MEDS ORDERED: MELATONIN 3 MG TAB PO PRN (11:16)
[2024-07-20] MEDS: KETOROLAC TROMETHAMINE 15 MG/ML VIAL IV PRN (11:37)
[2024-07-20 11:43] LABS: Base Excess VBG -2.7 mEq/L; HCO3 VBG 23 mmol/L; Oxygen Saturation VBG 87.9 %; PCO2 VBG 40 mmHg (38-50); PO2 VBG 57 mmHg; pH VBG 7.36 (7.36-7.41)
[2024-07-20] MEDS: MAGNESIUM SULFATE / D5W 1 GM/100 ML BAG IV SCH (11:43)
[2024-07-20] MEDS: LANTUS PER UNIT CHARGE SQ SCH (11:50)
[2024-07-20] MEDS: PANTOprazole 40 MG in SYRINGE 0 ML IV SCH (12:25)
[2024-07-20] MEDS: INSULIN ASPART PER UNIT CHARGE SC SCH (13:39)
[2024-07-20] MEDS: AMPICILLIN/SULBACTAM SOD 3,000 MG/100 ML BAG IV SCH (14:01)
--- NOTE | 2024-07-20 14:39 | Pharmacy Report ---
Pharmacy Glycemic Short Note 2 - Date of Service July 20, 2024 - Glycemic Short BSG Results (Last 24 hours): 07/20/24 07/20/24 06:15 11:47 Glucose 261 H POC Glucose 251 H OUTPATIENT ANTIDIABETIC REGIMEN: * Novolog SSI AC - CR 30 / CF 30 for BSG >250 mg/dL (per patient interview) * Per Endo note 04/2024 - Lantus 3 units, bolus 2-5 units, CR 30 / CF 50 for BSG >150 ASSESSMENT: * 24 year old admitted for cyclic vomiting syndrome, hyponatremia, UTI, N/V, gastroparesis. Type 1 diabetic managed only on novolog SSI outpatient. Did talk with patient about home regimen and she confirmed she does not take any long acting insulin. She reports only bolus insulin with meals. Patient not feeling well today, hard to get complete history of insulin use. * Pharmacy consulted for glycemic management. Provider ordered conservative scale of Lantus 5 units daily and novolog. Patient refusing novolog at lunch time check. She reports she does not feel well and only had broth therefore did not want any insulin given to cover. PLAN FOR INPATIENT GLYCEMIC CONTROL: * Hold outpatient oral diabetes medications * Basal insulin * Lantus 5 units daily * Bolus insulin * NovoLog per scale ACHS or Q6hrs while NPO * Goal Range: Low 110 mg/dL - High 180 mg/dL * Correction Factor: 50 mg/dL/unit * Nutritional / Prandial insulin per carb ratio of 1 unit per 20 grams CHO consumed
--- NOTE | 2024-07-20 15:31 | Electrocardiogram Report ---
Test Reason : Blood Pressure : */* mmHG Vent. Rate : 88 BPM Atrial Rate : 88 BPM P-R Int : 142 ms QRS Dur : 86 ms QT Int : 382 ms P-R-T Axes : 55 48 13 degrees QTcB Int : 462 ms Normal sinus rhythm Normal ECG When compared with ECG of 18-May-2024 22:18, No significant change was found Confirmed by Rob Altamirano ([id number]) on 07/20/2024 3:31:03 PM Referred By: REFERRED SELF Confirmed By: Rob Altamirano
[2024-07-20] MEDS ORDERED: FAMOTIDINE 20MG IV PUSH 20 MG/5 ML SYR IV SCH (21:00)
[2024-07-20] MEDS: FAMOTIDINE 20MG IV PUSH 20 MG/5 ML SYR IV SCH (21:01)
[2024-07-20] MEDS: busPIRone 5 MG TAB PO SCH (21:06)
[2024-07-20] MEDS: DICYCLOMINE HCL 10 MG CAP PO PRN (21:07)
[2024-07-20] MEDS: ENOXAPARIN INJ 40 MG/0.4 ML SYR SQ SCH (21:07)
[2024-07-20] MEDS: SUCRALFATE 1 GM/10 ML UDC PO PRN (21:07)
[2024-07-21] MEDS: ONDANSETRON INJ 2 MG/ML 2 ML VIAL IV PRN (00:53)
[2024-07-21] MEDS: ACETAMINOPHEN 1,000 MG/100 ML VIAL IV PRN (00:59)
[2024-07-21] MEDS: METOCLOPRAMIDE HCL INJ 5 MG/ML 2 ML VIAL IV PRN (01:15)
[2024-07-21 07:09] VITALS: O2SAT 96
[2024-07-21] MEDS: DULoxetine HCL 60 MG CAP PO SCH (08:53)
[2024-07-21] MEDS: MAGNESIUM OXIDE 400 MG TAB PO SCH (08:53)
[2024-07-21] MEDS: LANTUS PER UNIT CHARGE SQ SCH (09:02)
[2024-07-21 10:29] LABS: Basophils # (auto) 0.02 K/uL (0.00-0.20); Basophils % (auto) 0.3 %; Eosinophils # (auto) 0.01 K/uL (0.00-0.50); Eosinophils % (auto) 0.1 %; Hematocrit (blood only) 36.5 % (37.0-47.0); Hemoglobin 12.3 g/dl (12.0-16.0); Immature Granulocytes # (auto) 0.03 K/uL (0.01-0.20); Immature Granulocytes % (auto) 0.4 %; Lymphocytes % (auto) 17.6 %; Mean Corpuscular Hemoglobin 28.2 pg (25.0-34.0); Mean Corpuscular Hgb Conc 33.7 g/dL (32.0-36.0); Mean Corpuscular Volume 83.7 fL (80.0-100.0); Mean Platelet Volume 11.8 fL (9.4-12.4); Monocytes # (auto) 0.81 K/uL (0.11-0.59); Monocytes % (auto) 10.2 %; Neutrophils # (auto) 5.67 K/uL (1.40-6.50); Neutrophils % (auto) 71.4 %; Platelet Count 251 K/uL (130-400); RDW Coefficient of Variation 12.3 % (11.5-14.5); RDW Standard Deviation 37.7 fL (36.4-46.3); Red Blood Count 4.36 M/uL (4.20-5.40); White Blood Count 7.94 K/ul (4.8-10.8)
[2024-07-21] MEDS: OPTIRAY 320 100ml IV ONE (10:47)
[2024-07-21 10:48] LABS: Albumin Globulin Ratio 1.5 (0.9-2); BUN Creatinine Ratio 11.3 (10-20); Bilirubin,Total 0.6 mg/dl (0.2-1.0); Calcium 8.8 mg/dl (8.6-10.3); Creatinine Clr Calc Pharmacy 152.5 ml/min; Globulin 2.7 gm/dl (2.5-4.0); Potassium 3.5 mmol/L (3.5-5.1); Total Protein 6.7 gm/dl (6.0-8.3)
--- NOTE | 2024-07-21 11:00 | CT Scan Report ---
CT OF THE ABDOMEN AND PELVIS WITH CONTRAST CLINICAL HISTORY: worsening periumbilical/epigastric abdominal pain COMPARISON STUDY: CT of the abdomen and pelvis May 18, 2024 and abdominal sutures July 30, 2024 . TECHNIQUE: Following IV administration of 93 mL of Optiray, axial images of the abdomen and pelvis we re obtained from the lung bases to the proximal femurs. Images were reviewed in the axial, sagittal, and coronal planes. IV contrast was administered without complication. Automated exposure control wa s utilized for the study. A dose lowering technique was utilized adhering to the principles of ALARA . CT DOSE: 1293.46 mGy.cm FINDINGS: Lung bases are unremarkable. No pneumatosis, free air or portal venous gas is present. Live r, spleen, adrenal glands, kidneys and pancreas are unremarkable. There is no biliary or pancreatic d uctal dilatation. No peripancreatic or pericholecystic stranding. Mild bilateral perinephric strandin g is unchanged. The bladder is distended. Bladder wall thickening is similar to prior exam. There is trace fluid within the pelvis. Caliber and wall thickness of small and large bowel are normal. The ap pendix is normal. Major vasculature is patent. There is no lymphadenopathy. IMPRESSION: 1. Normal appendix. No bowel obstruction. No bowel wall thickening. 2. Distended bladder with mild bladder wall thickening, similar to prior exam. This could be correlat ed with urinalysis. 3. Trace fluid within the pelvis, likely physiologic. ACT 112: Negative or not required by law. Electronically signed by: Travis Hogan M.D. 07/21/2024 10:58 AM
--- NOTE | 2024-07-21 13:34 | Hospitalist Progress Note ---
Date of Service July 21, 2024 Assessment & Plan (1) Cyclical vomiting: Plan: - Worsening N/V/D and generalized abdominal pain that began on Tuesday 07/17 -Hx of gastroparesis; daily marijuana user but no prior history of cannabinoid hyperemesis; last smoked on Tuesday 07/17 - Abdominal X-ray with non-obstructive bowel gas pattern Given persistent 05/21 abdominal pain which patient rates as severe in her epigastrium did follow-up with CTA/P, initially deferred this as her presentation was similar to prior but has had ongoing pain overnight. This shows possible evidence of cystitis otherwise no acute abnormalities and no evidence of perforation/ischemia Continue IV pain control, IV antiemetics, antiacid treatment ? Or worsened symptoms with underlying UTI. Continue Unasyn, does have large colony count of gram-negative SLI these are pending speciation. Antibiotic adjustments to be made based on sensitivities and speciation when available. Continues to require ongoing hospitalization for vomiting (2) Acute hyponatremia: Plan: Improved with fluids, near normalized. Likely hypovolemic hyponatremia due to nausea/vomiting and now improved (3) UTI (urinary tract infection): Plan: UA cloudy and positive for bacteria on arrival Mild leukocytosis at 13.50 with a neutrophil predominance; afebrile Clinically, patient endorses lower back pain but denies burning with urination; she reports history of UTIs that are largely asymptomatic but often tied to cyclic vomiting syndrome Urine culture on 05/19/2024 grew coag negative staph with a susceptibility to oxacillin Unasyn 3000 mg IV q6h Gram-negative bacilli and large colony counts pending speciation. Further antibiotic adjustments based on speciation and sensitivities when available (4) Type 1 diabetes mellitus: Plan: Last A1c at 6.2% on 05/19/2024 Glucose 261 on admission Lantus 5u daily with SSI Advance to T1DM diet as tolerated BSG ACHS Adjust regimen as needed Pharmacy glycemic management consult for T1DM in the setting of U-100 use (5) Gastroparesis: Plan: IV Reglan 5 mg q6h Sucralfate p.o. as needed (6) Nausea vomiting and diarrhea: (7) Abdominal pain: Plan Disposition: [facility] Full code Type I DM as tolerated VTE PPx: Lovenox 40 mg SQ q24h Admission and Anticipated Discharge Date Admission Date: July 20, 2024 Juan Antonio Scott seen at the bedside. She reports her abdominal pain continues to be 8- 9/10 this morning worse in the epigastrium and periumbilical this but is without rigidity/guarding. She continues to have nonbloody nonbilious emesis. Feels a little better after vomiting peer denies fevers or chills. Does have some polyuria. Physical Exam Physical Exam: General: A&Ox3. NAD. Cooperative. HEENT: Atraumatic, normocephalic. Pulm: CTAB A&P. -wheezes, -rales, -rhonchi. Symmetrical chest rise. No increased work of breathing. No respiratory distress. Cardiac: RRR, -mrg. Radial pulses intact and symmetrical. Abdominal: Diffusely tender to soft palpation although without rebound/guarding/rigidity Results & Data Results & Data Vital Signs (Past 12 Hours) Vital Signs Temp Pulse Pulse Pulse Resp BP BP 07/21/24 07:07 37.2 C 69 18 109/67 07/21/24 04:42 36.8 C 87 16 159/86 H 07/21/24 02:43 86 155/85 H Pulse Ox O2 Del Method 07/21/24 07:07 96 Room Air 07/21/24 04:42 97 Room Air 07/21/24 02:43 98 Room Air PG Care Time/CCT Total # of Minutes Spent Total Time Spent with Patient: Total time spent is greater than 50% in coordination of care (as documented) at patient's floor/unit and/or counseling patient: Coding Level of Care Code 87853 SUB INP/OBS CARE 3/50MIN Diagnoses Cyclical vomiting R11.15 Acute hyponatremia E87.1 UTI (urinary tract infection) N39.0 Type 1 diabetes mellitus E10.9 Gastroparesis K31.84 Nausea vomiting and diarrhea R11.2; R19.7 Abdominal pain R10.84 Abdominal location: generalized (7) Abdominal pain Abdominal location: generalized Qualified Code(s): R10.84 - Generalized abdominal pain
--- NOTE | 2024-07-21 14:15 | Pharmacy Report ---
Pharmacy Glycemic Short Note 2 - Date of Service July 21, 2024 - Glycemic Short BSG Results (Last 24 hours): 07/20/24 07/20/24 07/21/24 16:59 20:08 07:46 Glucose POC Glucose 259 H 222 H 133 H 07/21/24 07/21/24 10:06 11:17 Glucose 152 H POC Glucose 191 H OUTPATIENT ANTIDIABETIC REGIMEN: * Novolog SSI AC - CR 30 / CF 30 for BSG >250 mg/dL (per patient interview) * Per Endo note 04/2024 - Lantus 3 units, bolus 2-5 units, CR 30 / CF 50 for BSG >150 ASSESSMENT: 07/21 * Pt received total of 6 units of insulin yesterday * 5 units of insulin glargine * 1 unit of insulin aspart HS * More aspart was warranted due to BSG, but pt was reasonably uncomfortable to receive more since was not eating solid foods and was still extremely nauseous. Did not give lunch or dinner aspart. * Pt's BSGs more controlled today, AM fasting 133 * Rises concern for insulin sensitivity, plan to decrease glargine by 40% to reach similar dose to previous Endo outpatient dose (3 units) 07/20 * 24 year old admitted for cyclic vomiting syndrome, hyponatremia, UTI, N/V, gastroparesis. Type 1 diabetic managed only on novolog SSI outpatient. Did talk with patient about home regimen and she confirmed she does not take any long acting insulin. She reports only bolus insulin with meals. Patient not feeling well today, hard to get complete history of insulin use. * Pharmacy consulted for glycemic management. Provider ordered conservative scale of Lantus 5 units daily and novolog. Patient refusing novolog at lunch time check. She reports she does not feel well and only had broth therefore did not want any insulin given to cover. PLAN FOR INPATIENT GLYCEMIC CONTROL: * Basal insulin * LOWER Lantus to 3 units daily * Bolus insulin * NovoLog per scale ACHS or Q6hrs while NPO * Goal Range: Low 110 mg/dL - High 180 mg/dL * Correction Factor: 50 mg/dL/unit * Nutritional / Prandial insulin per carb ratio of 1 unit per 20 grams CHO consumed
[2024-07-21 21:05] VITALS: RESP 16
[2024-07-22 08:11] VITALS: TEMP 98.6
--- NOTE | 2024-07-22 11:12 | Hospitalist Progress Note ---
Date of Service July 22, 2024 Assessment & Plan (1) Cyclical vomiting: Plan: Nausea vomiting, multifactorial with history of cyclic vomiting syndrome and diabetic gastroparesis - Worsening N/V/D and generalized abdominal pain that began on Tuesday 07/17 -Hx of gastroparesis; daily marijuana user but no prior history of cannabinoid hyperemesis; last smoked on Tuesday 07/17 - Abdominal X-ray with non-obstructive bowel gas pattern Given persistent 05/21 abdominal pain which patient rates as severe in her epigastrium did follow-up with CTA/P, initially deferred this as her presentation was similar to prior but has had ongoing pain overnight. This shows possible evidence of cystitis otherwise no acute abnormalities and no evidence of perforation/ischemia Continue IV pain control, IV antiemetics, antiacid treatment ? Or worsened symptoms with underlying UTI. Continue Unasyn, does have large colony count of gram-negative SLI these are pending speciation. Antibiotic adjustments to be made based on sensitivities and speciation when available. Continues to require ongoing hospitalization for vomiting (2) Acute hyponatremia: Plan: Improved with fluids, near normalized. Likely hypovolemic hyponatremia due to nausea/vomiting and now improved (3) UTI (urinary tract infection): Plan: UA cloudy and positive for bacteria on arrival Mild leukocytosis at 13.50 with a neutrophil predominance; afebrile Clinically, patient endorses lower back pain but denies burning with urination; she reports history of UTIs that are largely asymptomatic but often tied to cyclic vomiting syndrome Urine culture on 05/19/2024 grew coag negative staph with a susceptibility to oxacillin Unasyn 3000 mg IV q6h Gram-negative bacilli and large colony counts pending speciation. Further antibiotic adjustments based on speciation and sensitivities when available (4) Type 1 diabetes mellitus: Plan: Last A1c at 6.2% on 05/19/2024 Glucose 261 on admission Lantus 5u daily with SSI Advance to T1DM diet as tolerated BSG ACHS Adjust regimen as needed Pharmacy glycemic management consult for T1DM in the setting of U-100 use (5) Gastroparesis: Plan: IV Reglan 5 mg q6h Sucralfate p.o. as needed (6) Nausea vomiting and diarrhea: (7) Abdominal pain: Plan [facility] Type I DM as tolerated VTE PPx: Lovenox 40 mg SQ q24h Admission and Anticipated Discharge Date Admission Date: July 20, 2024 Results & Data Results & Data Vital Signs (Past 12 Hours) Vital Signs Temp Pulse Resp BP Pulse Ox O2 Del Method 07/22/24 08:11 37.0 C 77 16 134/79 96 Room Air PG Care Time/CCT Total # of Minutes Spent Total Time Spent with Patient: Total time spent is greater than 50% in coordination of care (as documented) at patient's floor/unit and/or counseling patient: Coding Diagnoses Cyclical vomiting R11.15 Acute hyponatremia E87.1 UTI (urinary tract infection) N39.0 Type 1 diabetes mellitus E10.9 Gastroparesis K31.84 Nausea vomiting and diarrhea R11.2; R19.7 Abdominal pain R10.84 Abdominal location: generalized (7) Abdominal pain Abdominal location: generalized Qualified Code(s): R10.84 - Generalized abdominal pain
[2024-07-22] MEDS: cefTRIAXone SODIUM 2,000 MG/50 ML BAG IV SCH (11:21)
[2024-07-22 11:50] LABS: Basophils # (auto) 0.01 K/uL (0.00-0.20); Basophils % (auto) 0.1 %; Eosinophils # (auto) 0.01 K/uL (0.00-0.50); Eosinophils % (auto) 0.1 %; Hematocrit (blood only) 39.4 % (37.0-47.0); Hemoglobin 13.4 g/dl (12.0-16.0); Immature Granulocytes # (auto) 0.02 K/uL (0.01-0.20); Immature Granulocytes % (auto) 0.3 %; Lymphocytes % (auto) 13.9 %; Mean Corpuscular Hemoglobin 28.5 pg (25.0-34.0); Mean Corpuscular Volume 83.7 fL (80.0-100.0); Mean Platelet Volume 11.6 fL (9.4-12.4); Monocytes # (auto) 0.57 K/uL (0.11-0.59); Monocytes % (auto) 7.2 %; Neutrophils # (auto) 6.18 K/uL (1.40-6.50); Neutrophils % (auto) 78.4 %; Platelet Count 267 K/uL (130-400); RDW Coefficient of Variation 12.2 % (11.5-14.5); RDW Standard Deviation 37.2 fL (36.4-46.3); Red Blood Count 4.71 M/uL (4.20-5.40); White Blood Count 7.89 K/ul (4.8-10.8)
[2024-07-22 12:06] LABS: Calcium 9.2 mg/dl (8.6-10.3); Potassium 3.3 mmol/L (3.5-5.1)
[2024-07-22 12:11] LABS: BUN Creatinine Ratio 12.3 (10-20); Creatinine Clr Calc Pharmacy 165.9 ml/min
--- NOTE | 2024-07-22 12:46 | Discharge Summary ---
Date of Service July 22, 2024 Admission HPI Per Admitting Provider Sonia is a 24-year-old female with PMH of T1DM, diabetic autonomic neuropathy, gastroparesis, cyclic vomiting syndrome, IBS, anxiety, depression, miscarriage, and functional dyspepsia. She presented for worsening N/V/D and generalized abdominal pain that started on Tuesday 07/17. Patient reports that this is similar to prior episodes of cyclic vomiting syndrome, which she attributes to her gastroparesis. Her symptoms came on gradually over the course of Thursday and have progressively gotten worse since. She is currently tolerating fluids but not solids. Has not eaten since Thursday. No sick contacts. Patient took her regular morning medication today, but reports that she vomited shortly after. No recent change in medications. She has been taking Zofran at home for her nausea and vomiting, which she reports helps sometimes. Additionally, she endorses generalized abdominal pain that she rates 9/10 at present, 10/10 at worst. The pain is mostly constant, but occasionally comes in waves. She characterizes it as someone "wringing" her stomach out. She has been taking Tylenol at home for the pain. Additionally she has had diarrhea that began shortly after the vomiting started. She has a history of UTIs that can occur with her cyclic vomiting syndrome; she reports she is normally asymptomatic and does not endorse burning with urination, but does note lower back pain. Patient does vape and smoke marijuana; last smoked marijuana on Thursday. She denies tobacco use or recent alcohol use. Patient manages her T1DM with a sliding scale insulin (U100); no Lantus, 1:30 ratio, she reports she does 3 to 4 units per meal. Patient is mildly hypertensive in 164/96 and tachycardic around 100 bpm at time of admission; vitals otherwise stable. ED course: Zofran 4 mg IV Reglan 10 mg IV Benadryl 25 mg IV Famotidine 20 mg IV NSS 1000 mL IV Morphine sulfate 6 mg IV Acetaminophen 1000 mg IV Unasyn 3000 mg IV Rocephin 2000 mg IV ROS: Patient endorses generalized weakness, lightheadedness with movements, generalized abdominal pain, N/V/D, hematemesis (started this morning), dry heaves, and lower back pain. Patient denies fever, chills, night-sweats, MCCOY, chest pain, SOB, cough, pl euritic CP, blood in urine/stool, burning with urination, or suprapubic tenderness. Discharge Data Consultations 07/20/24 09:03 ED Decision to Admit Stat Hospital Course (1) Cyclical vomiting: Sonia is a 24-year-old female with a past medical history of diabetic gastroparesis, cyclic vomiting syndrome, marijuana use with multiple presentations with severe abdominal pain due to gastroparesis and nausea/vomiting. Presentation was similar to prior, KUB appeared nonobstructed and without evidence of free air. UA was potentially infected and she was treated with Unasyn based on past culture history her abdomen was diffusely tender but without rebound/guarding and did not appear peritoneal on exam she was admitted with Reglan, Zofran, pain control, IV fluids overnight however unfortunately still endorsed 89/10 pain over the next 24 hours and underwent CTA/P with contrast. This showed possible cystitis but without any other acute bowel/appendiceal abnormalities. Urine culture speciated for pansensitive E. coli, based on prior antibiotic tolerances she was switched to Rocephin. Morning of discharge she report her pain was approximately 70-80% resolved, nausea was improved, and she was hungry. She was mildly hypokalemic at 3.3, wrist/benefits of discharge home versus ongoing management for another day were reviewed with the patient. She greatly preferred to be discharged home and felt that she was near her normal baseline. She was given a potassium supplement 40 mEq orally, started on potassium 20 mill accuse daily for 3 additional days and was discharged with outpatient follow-up to her PCP with repeat BMP within 1 week. She was given a prescription of Zofran for nausea control, and will complete a 5-day course of UTI antibiotics with 2 additional days of cefdinir 300 mg p.o. twice daily. She felt well and comfortable with this plan, was discharged to PCP follow-up. To do as outpatient: 1. Complete 3 additional days of potassium chloride 20 mEq/day oral supplement. Recheck BMP within 1 week 2. Follow-up with PCP 3. Complete 5-day course of antibiotics for pansensitive E. coli UTI with cefdinir 300 mg twice daily 4. Symptomatic nausea control with Zofran, outpatient follow-up for chronic cyclic vomiting syndrome and gastroparesis Assessment day of discharge including coordination of care, review of labs and images, documentation, and direct patient care approximately 40 minutes (2) Acute hyponatremia: (3) UTI (urinary tract infection): (4) Type 1 diabetes mellitus: (5) Gastroparesis: (6) Nausea vomiting and diarrhea: (7) Abdominal pain: Coding Level of Care Code 95786 INP/OBS DISCH >30 MIN Diagnoses Cyclical vomiting R11.15 Acute hyponatremia E87.1 UTI (urinary tract infection) N39.0 Type 1 diabetes mellitus E10.9 Gastroparesis K31.84 Nausea vomiting and diarrhea R11.2; R19.7 Abdominal pain R10.84 Abdominal location: generalized
[2024-07-22 13:10] VITALS: BP 109/67; PULSE 86
[2024-07-22] MEDS: POTASSIUM CHLORIDE CRTAB 20 MEQ TABCR PO STA (13:18)
== END 2024-07-22 13:27 | disposition home or self-care (01) | DRG 74 ==
LOC: ED 05:37 → 2N 09:43 → 3W 07-21 04:41
DX: Z79.899 Other long term (current) drug therapy; F17.290 Nicotine dependence, other tobacco product, uncomplicated; K31.9 Disease of stomach and duodenum, unspecified; E87.1 Hypo-osmolality and hyponatremia; K31.84 Gastroparesis; Z83.3 Family history of diabetes mellitus; N39.0 Urinary tract infection, site not specified; R11.15 Cyclical vomiting syndrome unrelated to migraine; E10.43 Type 1 diabetes mellitus with diabetic autonomic (poly)neuropathy; B96.20 Unspecified Escherichia coli [E. coli] as the cause of diseases classified elsewhere; Z79.3 Long term (current) use of hormonal contraceptives